=== PATIENT | female | born 1960 | race African-American/Black ===

== ENCOUNTER 2019-01-30 13:57 | Inpatient (IN) | payer MEDICAID ==
[2019-01-30] MEDS ORDERED: D50W 25 GM/50 ML SYRINGE IV PRN (16:08)
[2019-01-30] MEDS ORDERED: GLUCAGON 1 MG/VIAL IM PRN (16:08)
[2019-01-30] MEDS: INSULIN -REGULAR HUMAN 50 UNIT/0.5 ML ML SQ SCH ×2 (16:30→21:00)
[2019-01-30 16:51] LABS: Absolute Lymphocytes (CBC) 1.8 K/uL (0.7-4.9); Absolute Monocytes 0.5 K/uL (0.1-1.3); Absolute Neutrophil 2.8 K/uL (1.8-8.0); Basophils % 0.9 % (0-1.3); Eosinophils % 3.1 % (0-4.4); Hematocrit 22.4 % (36.0-45.0); Lymphocytes % 33.9 % (15.3-44.8); MPV 7.6 fL (7.6-11.3); Monocytes % 8.7 % (3.3-12.3); RBC Red Blood Cell Count 2.34 M/uL (3.86-4.86)
--- NOTE | 2019-01-30 17:30 | RAD REPORT ---
EXAM DESCRIPTION: Robbin Single View01/30/2019 4:58 pm CLINICAL HISTORY: Shortness of breath COMPARISON: 2013 FINDINGS: The lungs appear clear of acute infiltrate. The heart is moderately enlarged IMPRESSION: No acute abnormalities displayed
[2019-01-30 17:33] LABS: Bilirubin Total 0.3 mg/dL (0.2-1.0); Magnesium 2.5 mg/dL (1.8-2.4); Phosphorus 5.1 mg/dL (2.5-4.9); Potassium 5.1 mmol/L (3.5-5.1)
[2019-01-30] MEDS ORDERED: FUROSEMIDE 40 MG TABLET PO SCH (18:00)
[2019-01-30] MEDS ORDERED: INFLUENZA VACCINE (for 3y+) 0.5 ML DOSE IMVAC ONE (18:00)
[2019-01-30] MEDS ORDERED: NACHLORIDE 0.45% 1,000 ML with NA BICARB 8.4% 100 MEQ IV SCH ×2 (18:00)
[2019-01-30] MEDS ORDERED: EPOETIN ALFA 10,000 UNIT/ML SQ ONE (20:29)
[2019-01-30] MEDS ORDERED: MANNITOL 25% 12.5 GM/50 ML VIAL IV PRN (20:33)
[2019-01-30] MEDS ORDERED: NA CHLORIDE 0.9% 1,000 ML IV PRN (20:33)
[2019-01-30] MEDS ORDERED: ALBUMIN HUMAN 25% 50 ML IV SCH (21:00)
[2019-01-30] MEDS ORDERED: WATER FOR INJ,STERILE 1,000 ML with NA BICARB 8.4% 100 MEQ IV SCH ×2 (21:00)
[2019-01-30] MEDS ORDERED: SODIUM BICARB 325 MG TAB PO ONE (21:00)
[2019-01-30] MEDS: CARVEDILOL 25 MG TAB PO SCH (21:54)
[2019-01-30] MEDS ORDERED: SODIUM BICARB 50 MEQ/50ML VIAL ONE (21:57)
[2019-01-30] MEDS: ACETAMINOPHEN 500 MG TAB PO PRN (22:04)
[2019-01-30] MEDS: NACHLORIDE 0.45% 1,000 ML IV SCH (23:15)
--- NOTE | 2019-01-31 03:38 | HP ---
Date of Admission: 01/30/2019 Primary Care Physician: Dr. Hart Chief Complaint: Abnormal labs, direct admission for initiation of dialysis, worsening kidney disease. History Of Present Illness: The patient is a 58-year-old female with past medical history of chronic kidney disease with recent creatinine, with baseline creatinine of 4, increased to 10, diabetes, hyperlipidemia, depression. This is a patient of Dr. Berry, who was admitted directly to the hospital for initiation of hemodialysis. The patient patient's labs from yesterday showed creatinine level of 10.6, elevated from 4, potassium was elevated at 5.7. The patient was also anemic at 7.6. The patient does report generalized weakness, weight loss of about 20 pounds in the past 6 months, some muscle fasciculations and spasms, decreased appetite. The patient's symptoms are constant, moderate, progressively worsening. She denies any NSAID use or recent changes in medications. The patient still makes urine. When the patient was seen on the floor, she was awake, alert, oriented x3, in some mild distress. Past Medical History: Diabetes mellitus type 2, diabetic gastroparesis, hyperlipidemia, depression, chronic kidney disease. Past Surgical History: Left arm AV fistula graft with subsequent reversal, knee surgery, tonsillectomy, appendectomy. Allergies: TO PENICILLIN, WHICH CAUSES HIVES. Medications: List reviewed. Social History: The patient smokes half a pack per day of cigarettes, has been smoking for multiple decades. Does drink alcohol on a fairly regular basis including beer and Smirnoff . No illicit drug use. The patient has good social support. Independent in her activities of daily living. Family History: Positive for diabetes. Review of Systems: Ten-point system reviewed, negative except as per HPI. Physical Examination: Vital Signs: Stable, afebrile. General: Awake, alert, oriented x3. Currently, ill-appearing female, in some mild distress. HEENT: Normocephalic, atraumatic. PERRLA. EOMI. Moist mucous membranes. Oropharynx is clear. Poor dentition. Conjunctivae anicteric. Neck: Supple. No JVD. Trachea midline. CV: S1 and S2. Regular rate and rhythm. Peripheral pulses present. Respiratory: Diminished breath sounds at the bases. Some crackles heard. No wheezing or stridor. No use of accessory muscles. Gastrointestinal: Abdomen is soft, nontender, nondistended. Positive bowel sounds. No guarding or rigidity. Extremities: No clubbing or cyanosis. The patient has 1+ edema of bilateral lower extremities. No calf tenderness. Neuro: Cranial nerves 2-12 intact grossly. No focal neurological deficit. Speech is normal. Strength is 5/5 bilateral upper and lower extremities. Psych: Mood is okay. Affect is flat. Insight and judgment are fair. Skin: No rashes. The patient has very dry excoriated skin on bilateral lower extremities. Laboratory Data: Pending. Creatinine 10.6, potassium 5.7, hemoglobin 7.6 from outside lab. EKG shows normal sinus rhythm. Assessment And Plan: A 58-year-old female with: 1. Acute on chronic kidney disease, trending towards end-stage renal disease, needs to be initiated on dialysis. I am unable to feel a palpable thrill on the patient's AV fistula. We will likely need catheter placement. Dr. Berry is on board. I appreciate his input. 2. Hyperkalemia. We will recheck potassium level and treat as necessary. We will place on cardiac telemetry. 3. Anemia of chronic disease secondary to chronic kidney disease, to be started on dialysis. We will monitor H and H. Hemoglobin was 7.6 yesterday. We will transfuse if less than 7. 4. Diabetes mellitus type 2, poo-djydkrl-drvvjdwms with diabetic gastroparesis. We will continue on sliding scale insulin and monitor Accu- Cheks. 5. Mixed hyperlipidemia. Continue home medications as appropriate. 6. Major depressive disorder, single episode, in remission. 7. Deep venous thrombosis prophylaxis, SCDs. We will hold off on chemical anticoagulation due to possibility of surgical intervention. Admission to Med-Surg, place as inpatient. Length of stay, greater than 2 midnights. LALITHA Voice ID: [id number] MTDD
[2019-01-31 05:50] LABS: Absolute Lymphocytes (CBC) 1.3 K/uL (0.7-4.9); Absolute Monocytes 0.5 K/uL (0.1-1.3); Absolute Neutrophil 2.8 K/uL (1.8-8.0); Basophils % 0.7 % (0-1.3); Eosinophils % 4.7 % (0-4.4); Hematocrit 21.9 % (36.0-45.0); Lymphocytes % 26.6 % (15.3-44.8); MPV 7.7 fL (7.6-11.3); Monocytes % 9.6 % (3.3-12.3); RBC Red Blood Cell Count 2.37 M/uL (3.86-4.86)
[2019-01-31 06:02] LABS: Protime INR 0.93
[2019-01-31] MEDS: CARVEDILOL 25 MG TAB PO SCH ×2 (06:04→22:57)
--- NOTE | 2019-01-31 06:05 | EKG ---
Test Date: 2019-01-30 Test Time: 16:11:20 Research Hydrologist: LEVI MEASUREMENT RESULTS: Intervals: Rate: 73 CA: 154 QRSD: 96 QT: 446 QTc: 491 [place]: P: 63 CA: 154 QRS: 3 T: 30 INTERPRETIVE STATEMENTS: Normal sinus rhythm Prolonged QT Abnormal ECG Compared to ECG 09/08/2015 14:02:56 Left ventricular hypertrophy no longer present Myocardial infarct finding no longer present Electronically Signed On 01-31-19 06:04:16 DIRECTOR CHECK by Tru Bill
[2019-01-31 06:18] LABS: Albumin 2.8 g/dL (3.4-5.0); Bilirubin Total 0.2 mg/dL (0.2-1.0); Potassium 5.5 mmol/L (3.5-5.1); Protein, Total 6.9 g/dL (6.4-8.2); Uric Acid 6.6 mg/dL (2.6-6.0)
[2019-01-31] MEDS: INSULIN -REGULAR HUMAN 50 UNIT/0.5 ML ML SQ SCH ×4 (07:30→21:00)
[2019-01-31] MEDS ORDERED: CIPROFLOXACIN 400mg IV 400 MG/200 ML BAG IV ONE ×2 (08:58→10:47)
[2019-01-31] MEDS: CALCITROL 0.25 MCG CAP PO SCH (09:00)
[2019-01-31] MEDS: VITAMIN D 5,000 UNIT CAP PO SCH (09:00)
[2019-01-31] MEDS: AMLODIPINE 10 MG TAB PO SCH (10:35)
[2019-01-31] MEDS ORDERED: NA CHLORIDE 0.9% 500 ML ONE (10:47)
[2019-01-31] MEDS: ONDANSETRON 4 MG/2 ML VIAL IV PRN ×2 (10:47→18:10)
[2019-01-31] MEDS: HEPARIN 5000 UNIT/ML 1 ML VIAL ONE ×5 (11:35→15:29)
[2019-01-31] MEDS ORDERED: NA CHLORIDE 0.9% 100 ML IV ONE ×2 (11:36→14:56)
[2019-01-31] MEDS: LIDOCAINE 1% MPF 30 ML VIAL ONE ×2 (11:56→13:00)
[2019-01-31] MEDS: NACHLORIDE 0.45% 1,000 ML IV SCH ×2 (12:20→22:58)
[2019-01-31] MEDS ORDERED: MIDAZOLAM HCL 2 MG/2 ML INJ ONE (12:42)
[2019-01-31] MEDS ORDERED: FENTANYL CITR 100 MCG/2 ML ONE (12:56)
[2019-01-31] MEDS ORDERED: LIDOCAINE 2% MPF 5 ML VIAL ONE (12:56)
[2019-01-31] MEDS ORDERED: PROPOFOL 200 MG/20 ML VIAL IV ONE ×2 (12:56→13:23)
--- NOTE | 2019-01-31 13:26 | PREOPCON ---
Date of Consultation: 01/31/2019 Reason: The patient needs emergent dialysis. History Of Present Illness: The patient is a 58-year-old female with multiple medical problems, who was admitted with worsening kidney disease, found to have acute renal failure and is going to require long-term dialysis, therefore I was consulted for catheter placement. She is awake, alert. No comp laint. No fever or chills. No chest pain. No sore throat, runny nose, cough, headaches, or dizzine ss. Review of Systems: Otherwise unremarkable. Past Medical History: Diabetes type 2, gastroparesis, hyperlipidemia, chronic kidney disease, depres dmitriy. Past Surgical History: Left arm AV fistula with subsequent reversal, knee surgery, tonsillectomy and appendectomy. Allergies: INCLUDE PENICILLIN, WHICH CAUSES SWELLING AND HIVES. Social History: She does smoke and has been counseled. She does drink alcohol. Family History: Significant for diabetes. Physical Examination: Vital Signs: Significant for slightly elevated blood pressure 177/82. She is afebrile. She is awak e, alert. Head and Neck: No masses. No JVD currently. Chest: Clear. Heart: S1, S2. Abdomen: Soft. Extremities: Neurovascularly intact. Neuro: Nonfocal. Assessment: End-stage renal disease requiring long-term dialysis. Recommendation: Proceed with Tesio catheter placement. The patient understands the risks, benefits, and alternatives and agrees to procedure. RAGHU/MODLeia Voice ID: [id number] Report ID: [id number]
[2019-01-31] MEDS ORDERED: SOD POLYSTYREN SUL 15 GM/60 ML UCUP PO ONE (13:40)
[2019-01-31] MEDS: HYDROMORPHONE HCL 1 MG/ML INJ ONE ×2 (14:04→14:58)
--- NOTE | 2019-01-31 14:51 | RAD REPORT ---
EXAM DESCRIPTION: RAD - Fluoroscopy <1 Hour - 01/31/2019 2:43 pm CLINICAL HISTORY: Venous catheter insertion. TESSIO PLACEMENT ATTEMPT COMPARISON: No comparisons FINDINGS: Fluoroscopy time 2.9 minutes.
[2019-01-31] MEDS ORDERED: LIDOCAINE 1% MPF 30 ML VIAL ONE (14:55)
--- NOTE | 2019-01-31 14:55 | RAD REPORT ---
EXAM DESCRIPTION: RAD - Chest Single View - 01/31/2019 2:50 pm CLINICAL HISTORY: FAILED ATTEMPT TESIO CATH Chest pain. COMPARISON: Chest Single View dated 01/30/2019; CHEST SINGLE VIEW dated 12/11/2013; CHEST PA AND LAT 2 VIEW dated 02/21/2011; CHEST PA AND LAT 2 VIEW dated 08/20/2010 FINDINGS: Portable technique limits examination quality. A venous catheter is not seen. The lungs appear clear without pneumothorax. The heart is moderately p rominent in size.
[2019-01-31] MEDS ORDERED: HEPARIN 5000 UNIT/ML 1 ML VIAL ONE (14:56)
[2019-01-31] MEDS ORDERED: HYDROMORPHONE HCL 1 MG/ML INJ ONE (15:24)
--- NOTE | 2019-01-31 15:41 | P.OP ---
Preoperative diagnosis: ESRD Postoperative diagnosis: same Primary procedure: Attempted RIJ and Subclavian Tesio Secondary procedure: Fluoroscopy Other procedure(s): Placement R Femoral Tone Anesthesia: MAC Estimated blood loss: min Specimen: none Findings: abnormal Vascular Anatomy in neck region Complications: None Transferred to: Recovery Room Condition: Good
--- NOTE | 2019-01-31 17:29 | PN ---
Date of Progress Note: 01/31/2019 Subjective: The patient is seen and examined. Chart reviewed and case discussed with RN and Dr. Debra dillard. The patient overall says she feels okay, going for hemodialysis catheter placement today by Dr Michael Alvares. Dr. Alvares mentioned that he will likely get her this afternoon. Medications: List reviewed. Physical Examination: Vital Signs: Temperature 97.9, heart rate 69, blood pressure 177/82, respirations 16, O2 100% on lexi m air. General: Awake, alert, oriented x3, mild distress. CV: S1, S2. Regular rate and rhythm. Peripheral pulses present. Respiratory: Moving air well bilaterally. No wheezing or stridor. Gastrointestinal: Abdomen is soft, nontender, nondistended. Positive bowel sounds. Extremities: No clubbing or cyanosis. The patient has pedal edema. Neurologic: Nonfocal. Laboratory Data: Sodium 142, potassium 5.5, chloride 115, CO2 17, BUN 83, creatinine 9.38, glucose 8 9, uric acid 6.6, calcium 7.5, albumin 2.8. WBC 4.7, H and H 7.2 and 21.9, platelets 154. Hep panel pending. Assessment And Plan: A 58-year-old female with: 1.Lvfpg-tq-pegdfce kidney disease, stage 5, now seems to be end-stage. Needs to be initiated on kathy lysis. The patient's AV fistula is nonfunctional. She will need catheter placement. Dr. Alvares will be placing the catheter today. Appreciate Dr. Berry's input. 2.Hyperkalemia. We will give Kayexalate and monitor. 3.Anemia of chronic disease secondary to chronic kidney disease, to be started on dialysis. Monitor H and H, transfuse if less than 7. 4.Diabetes mellitus type 2, mud-nxumtvj-whqddmtti with diabetic gastroparesis. Continue sliding sca le insulin. Monitor Accu-Cheks. 5.Hyperlipidemia. 6.Major depressive disorder, single episode, in remission. 7.Deep venous thrombosis prophylaxis with SCDs due to surgical intervention at this time. Plan: Initiate dialysis once catheter in place. Monitor electrolytes. SA/MODL Voice ID: [id number] Report ID: [id number]
--- NOTE | 2019-01-31 18:03 | P.CNS ---
Date of Consult: 01/31/19 Reason for Consult: ESRD Requesting Physician: Rustam Antonio Chief Complaint: Uremia History of Present Illness: 58 yo BF CKD, HTN admitted to the hospital with severe, progressive CKD with associated uremia. Positive nausea, vomiting and anorexia. No alleviating fx. No NSAIDs. History Of Present Illness: The patient is a 58-year-old female with past medical history of chronic kidney disease with recent creatinine, with baseline creatinine of 4, increased to 10, diabetes, hyperlipidemia, depression. This is a patient of Dr. Berry, who was admitted directly to the hospital for initiation of hemodialysis. The patient patient's labs from yesterday showed creatinine level of 10.6, elevated from 4, potassium was elevated at 5.7. The patient was also anemic at 7.6. The patient does report generalized weakness, weight loss of about 20 pounds in the past 6 months, some muscle fasciculations and spasms, decreased appetite. The patient's symptoms are constant, moderate, progressively worsening. She denies any NSAID use or recent changes in medications. The patient still makes urine. When the patient was seen on the floor, she was awake, alert, oriented x3, in some mild distress. Allergies Penicillins Adverse Reaction (Mild, Verified 09/05/12 15:39) SWELLING PCN Allergy (Uncoded 03/25/15 17:24) Unknown Home medications list reviewed: Yes Home Medications: Amlodipine [Norvasc] 10 mg PO DAILY 01/30/19 Carvedilol [Coreg] 25 mg PO BID 01/30/19 Cholecalciferol (Vitamin D3) [Vitamin D 1000 Iu Tab] 1,000 unit PO DAILY Furosemide [Lasix] 40 mg PO BID 01/30/19 - Past Medical/Surgical History Diabetic: Yes -: kidney issues -: HTN -: NIDDM -: Bladder issues -: Cataracts -: knee sx -: stunt placement in arm - Family History Father History Unknown: Yes Mother Medical History: Hypertension, Diabetes, Kidney disease - Social History Smoking Status: Current every day smoker Alcohol use: Yes CD- Drugs: No Caffeine use: No Place of Residence: Home Review of Systems 10-point ROS is otherwise unremarkable General: Weakness, Malaise Gastrointestinal: Nausea, Vomiting Neurological: Weakness Physical Examination Temp Pulse Resp BP Pulse Ox 97.1 F 60 15 142/65 H 100 01/31/19 16:00 01/31/19 16:00 01/31/19 16:00 01/31/19 16:00 01/31/19 16:00 General: In no apparent distress, Oriented x3, Cooperative HEENT: Atraumatic Neck: Supple Respiratory: Clear to auscultation bilaterally Cardiovascular: No edema, Regular rate/rhythm Gastrointestinal: Soft and benign, Non-distended Musculoskeletal: No clubbing, No contractures Integumentary: No rashes, No cyanosis Neurological: Normal speech Laboratory Data (last 24 hrs) 01/31/19 05:30: PT 11.0, INR 0.93, APTT 32.7 01/31/19 05:30: Sodium 142, Potassium 5.5 H, BUN 83 H, Creatinine 9.38 H*, Glucose 89, Uric Acid 6.6 H, Total Bilirubin 0.2, AST 35, ALT 19, Alkaline Phosphatase 77 01/31/19 05:30: WBC 4.7, Hgb 7.2 L*, Hct 21.9 L, Plt Count 154 01/30/19 16:35: Sodium 140, Potassium 5.1, BUN 84 H, Creatinine 9.58 H*, Glucose 142 H, Phosphorus 5.1 H, Magnesium 2.5 H, Total Bilirubin 0.3, AST 33, ALT 17, Alkaline Phosphatase 80 Imagings Data: EXAM DESCRIPTION: Robbin Single View01/30/2019 4:58 pm CLINICAL HISTORY: Shortness of breath COMPARISON: 2013 FINDINGS: The lungs appear clear of acute infiltrate. The heart is moderately enlarged IMPRESSION: No acute abnormalities displayed Conclusions/Impression: A/ ESRD with uremia. HD to be initiated [id number]. Hyperkalemia. Acidosis. HTN with CKD/ CHF. Diastolic CHF, chronic. Anemia in CKD. DM II with CKD. JUANITO/ Secondary HyperPTH. P/ Continue current POC and Medications. Admitted to the hospital for uremia complicated by acidosis, hyperkalemia and anemia. Give bicarb. Give Epo. Start Vitamin D. Will consider binders once diet advanced. Arrange for Tunnelled HD CVC; Dr. Alvares consulted. Restart home medications as indicated. Give Epo. No NSAIDs. AM labs. Daily weight. Case reviewed with Dr. Alavres today. Unable to place the IH CVC due to obstruction. A temporary groin catheter was placed to initiate dialysis. Case reviewed with Dr. Antonio. Initiate transfer to a higher level facility for vascular evaluation. Case reviewed with the patient and her daughter. Thank you kindly for the consultation.
[2019-01-31] MEDS: ACETAMINOPHEN 500 MG TAB PO PRN (21:40)
--- NOTE | 2019-02-01 03:42 | OP ---
Date of Procedure: 01/31/2019 Surgeon: Lasha Alvares MD Preoperative Diagnosis: End-stage renal disease. Postoperative Diagnosis: End-stage renal disease. Procedures: Attempted right IJ and subclavian Tesio catheter, interpretation of fluoroscopy, and jacki cement of right femoral Tone catheter. Estimated Blood Loss: Minimal. Specimen: None. Findings: Abnormal anatomy in the SVC, neck, and subclavian region. I was able to get below; roxanna r, guidewire was difficult to pass. One time we did, but we could not get the catheter to be placed in the proper location. Rather than risk a vascular complication, I aborted this area. We got a [facility] x-ray. There was no evidence of any complication and then I contacted Dr. Berry and we proceede d with placement of a right femoral catheter. Anesthesia: MAC. Complications: None. Disposition: The patient tolerated the procedure in stable condition and taken to Recovery in good g eneral condition. Description Of Procedure: The patient was brought to the OR and placed in the supine position. MAC anesthesia begun. The patient was prepped and draped in the usual sterile fashion. Lidocaine 1% inf iltrated locally. An 18-gauge needle was used to access the right IJ vein. However, after multiple attempts, a guidewire would not pass without resistance. A resistance was made at the thoracic inlet region. This was attempted several times from different angles and different techniques were used a s well. Then, the subclavian region was also done and one time the guidewire was passed down to the right side of the circulatory system, but it was very difficult to dilate over that. My concern was the patient may have a thrombosis or stenosis in that region and because of the difficulty encounter, I aborted this area and the wounds were closed with 3-0 nylon. Subsequently, a chest x-ray was obta ined. The patient was taken to recovery room and chest x-ray did not show any evidence of complicati on, no pneumothorax, no wide mediastinum, and no pleural fluid. Subsequently, the case was discussed in detail with Dr. Berry, who proceeded with the placement of right femoral Tone catheter, as t he patient is uremic and needs urgent dialysis. Subsequently, the right groin was prepped and draped in the usual sterile fashion. A Doppler device was used to identify the right femoral artery and me dial to that, the right femoral vein was identified with an 18-gauge needle. Guidewire passed. Vein dilated. Seldinger technique used and the Tone catheter was placed and secured with 3-0 nylon, i t was flushed with heparin and packed with heparin with good blood flow. Sterile dressing was applie d. The patient tolerated the procedure in stable condition and currently she is going upstairs for d ialysis. RAGHU/CHANO Voice ID: [id number] Report ID: [id number]
[2019-02-01] MEDS: ACETAMINOPHEN 500 MG TAB PO PRN (04:46)
[2019-02-01 06:21] LABS: Absolute Lymphocytes (CBC) 1.3 K/uL (0.7-4.9); Absolute Monocytes 0.6 K/uL (0.1-1.3); Absolute Neutrophil 3.5 K/uL (1.8-8.0); Basophils % 0.7 % (0-1.3); Eosinophils % 3.2 % (0-4.4); Hematocrit 17.9 % (36.0-45.0); Lymphocytes % 22.7 % (15.3-44.8); Monocytes % 10.4 % (3.3-12.3); RBC Red Blood Cell Count 1.95 M/uL (3.86-4.86)
[2019-02-01 06:58] LABS: Albumin 2.5 g/dL (3.4-5.0); Bilirubin Total 0.2 mg/dL (0.2-1.0); Potassium 3.8 mmol/L (3.5-5.1); Protein, Total 5.9 g/dL (6.4-8.2)
[2019-02-01] MEDS ORDERED: HYDROCODONE/APAP 7.5/325 MG TAB PO ONE (07:23)
[2019-02-01] MEDS: INSULIN -REGULAR HUMAN 50 UNIT/0.5 ML ML SQ SCH ×4 (07:30→21:00)
[2019-02-01] MEDS: CARVEDILOL 25 MG TAB PO SCH ×2 (08:13→22:12)
[2019-02-01] MEDS: CALCITROL 0.25 MCG CAP PO SCH (08:14)
[2019-02-01] MEDS: AMLODIPINE 10 MG TAB PO SCH (08:15)
[2019-02-01] MEDS: VITAMIN D 5,000 UNIT CAP PO SCH (08:15)
[2019-02-01] MEDS: RAMIPRIL 5 MG CAP PO SCH (09:38)
[2019-02-01] MEDS: NACHLORIDE 0.45% 1,000 ML IV SCH (12:30)
[2019-02-01] MEDS ORDERED: WATER FOR INJ,STERILE 10 ML IV ONE ×2 (17:19→18:00)
[2019-02-01] MEDS ORDERED: ALTEPLASE 2 MG/VIAL IJ ONE (17:19)
[2019-02-01 17:39] LABS: Urine Appearance CLEAR; Urine Bilirubin NEGATIVE (NEG); Urine Blood 1+ (NEG); Urine Color YELLOW; Urine Glucose 1+ (NEG); Urine Protein 3+ (NEG); Urine Specific Gravity 1.015 (1.005-1.030); Urine Urobilinogen 0.2 mg/dL (0.2-1.0)
[2019-02-01 17:45] LABS: Urine Microscopic Reflex ORDER UMIC
[2019-02-01] MEDS ORDERED: ALTEPLASE 2 MG/VIAL IV SCH ×2 (18:00)
[2019-02-01] MEDS ORDERED: NA CHLORIDE 0.9% 250 ML ONE (18:59)
[2019-02-01] MEDS: EPOETIN ALFA 10,000 UNIT/ML VIAL IV SCH (19:25)
[2019-02-01 19:32] LABS: Urine Bacteria >50 /HPF (<20); Urine Culture Reflex Order REFLEXED; Urine RBC <5 /HPF (NONE SEEN)
[2019-02-01] MEDS ORDERED: TRAMADOL HCL 50 MG TAB PO ONE (22:18)
[2019-02-01 22:45] LABS: Hematocrit 22.5 % (36.0-45.0)
--- NOTE | 2019-02-01 23:08 | P.PN ---
Addendum entered and electronically signed by Donald Berry DO 02/01/19 19:02 : Start Ramipril for HTN. Original Note: Date of Service: 02/01/19 Vital Signs Temp Pulse Resp BP Pulse Ox 98.7 F 78 15 156/72 H 98 02/01/19 16:00 02/01/19 16:00 02/01/19 16:00 02/01/19 16:00 02/01/19 16:00 Medications Acetaminophen (Tylenol -Extra Strength) 500 mg PO Q4HP PRN PRN Reason: TEMP > 100' F Stop: 03/01/19 15:57 Last Admin: 02/01/19 04:46 Dose: 500 mg Alteplase, Recombinant (Cathflo Activase) 2 mg IV 1X [facility] Stop: 02/01/19 23:59 Last Admin: 02/01/19 17:36 Dose: 2 mg Alteplase, Recombinant (Cathflo Activase) 2 mg IV 1X [facility] Stop: 02/01/19 23:59 Last Admin: 02/01/19 17:38 Dose: 2 mg Amlodipine Besylate (Norvasc) 10 mg PO DAILY [facility] Stop: 03/02/19 09:01 Last Admin: 02/01/19 08:15 Dose: 10 mg Calcitriol (Rocaltrol) 0.5 mcg PO DAILY [facility] Stop: 03/02/19 09:01 Last Admin: 02/01/19 08:14 Dose: 0.5 mcg Carvedilol (Coreg) 25 mg PO BID [facility] Stop: 03/01/19 21:01 Last Admin: 02/01/19 08:13 Dose: 25 mg Cholecalciferol (Vitamin D 5,000 Iu Cap) 5,000 unit PO DAILY [facility] Stop: 03/02/19 09:01 Last Admin: 02/01/19 08:15 Dose: 5,000 unit Dextrose (Dextrose 50% Syringe) 12.5 gm IV PRN PRN PRN Reason: HYPOGLYCEMIA PROTOCOL Stop: 03/01/19 16:09 Epoetin Tommy (Procrit) 10,000 unit IV EVERY HD [facility] Stop: 03/01/19 20:46 Glucagon (Glucagen) 1 mg IM 1X PRN PRN Reason: HYPOGLYCEMIA Stop: 03/01/19 16:09 Heparin Sodium (Porcine) (Heparin 1,000 Units/Ml) 6,000 unit IJ EVERY HD PRN PRN Reason: FLUSH AFTER EACH USE Stop: 03/01/19 20:34 Albumin Human (Albumin 25%) 50 mls @ 100 mls/hr IV EVERY HD [facility] Stop: 03/01/19 21:01 Sodium Chloride (Sodium Chloride 0.45%) 1,000 mls @ 75 mls/hr IV .[id number] [facility] Stop: 03/01/19 23:01 Last Admin: 02/01/19 12:30 Dose: 1,000 mls Insulin Human Regular (Novolin -R) 0 unit SQ ACHS [facility]; Protocol Stop: 03/01/19 16:31 Last Admin: 02/01/19 15:50 Dose: Not Given Mannitol (Mannitol 12.5 Gm/50 Ml Vial) 12.5 gm IV EVERY HD PRN PRN Reason: Titrate to SBP (MUST DEFINE) Stop: 03/01/19 20:34 Ondansetron HCl (Zofran) 4 mg IV Q4H PRN PRN Reason: NAUSEA / VOMITING Stop: 03/01/19 15:57 Last Admin: 01/31/19 18:10 Dose: 4 mg Ramipril (Altace) 5 mg PO DAILY [facility] Stop: 03/03/19 09:01 Last Admin: 02/01/19 09:38 Dose: 5 mg Sodium Chloride (Normal Saline Flush) 10 ml IV BID [facility] Stop: 03/01/19 21:01 Last Admin: 02/01/19 08:16 Dose: Not Given Lab Results (last 24 hrs) 02/01/19 16:40: Urine Color Yellow, Urine Appearance Clear, Urine pH 6.0, Ur Specific [place] 1.015, Urine Ketones Negative, Urine Blood 1+ H, Urine Nitrite Positive H, Urine Bilirubin Negative, Urine Urobilinogen 0.2, Ur Leukocyte Esterase 1+ H, Urine Glucose 1+ H, Urine Total Protein 3+ H 02/01/19 15:20: POC Glucose 72 02/01/19 11:41: POC Glucose 363 H 02/01/19 08:22: ABO/Rh A POSITIVE 02/01/19 07:51: POC Glucose 101 02/01/19 06:56: ABO/Rh A POSITIVE, Antibody Screen Negative, Crossmatch See Detail 02/01/19 05:44: Sodium 142, Potassium 3.8, Chloride 111 H, Carbon Dioxide 23, BUN 47 H D, Creatinine 6.32 H* D, Estimated GFR 8 L, Glucose 117 H, Calcium 7.3 L, Total Bilirubin 0.2, AST 22, ALT 14, Alkaline Phosphatase 66, Serum Total Protein 5.9 L, Albumin 2.5 L, Globulin 3.4, Albumin/Globulin Ratio 0.7 L 02/01/19 05:44: WBC 5.5 D, RBC 1.95 L, Hgb 6.0 L*, Hct 17.9 L* D, MCV 91.7, MCH 30.7, MCHC 33.5, RDW 12.7, Plt Count 131 L, MPV 8.0, Neutrophils % 63.0, Lymphocytes % 22.7, Monocytes % 10.4, Eosinophils % 3.2, Basophils % 0.7, Absolute Neutrophils 3.5, Absolute Lymphocytes 1.3, Absolute Monocytes 0.6, Absolute Eosinophils 0.2, Absolute Basophils 0.0 01/31/19 19:30: POC Glucose 88 Assessment/ Plan: Nephrology. Feeling better. CPS stable without CP or SOB. No acute events overnight. Vitals, medications, blood work and imaging reviewed in the chart. General: In no apparent distress, Oriented x3, Cooperative HEENT: Atraumatic Neck: Supple Respiratory: Clear to auscultation bilaterally Cardiovascular: No edema, Regular rate/rhythm Gastrointestinal: Soft and benign, Non-distended Musculoskeletal: No clubbing, No contractures Integumentary: No rashes, No cyanosis Neurological: Normal speech Laboratory Data (last 24 hrs) 01/31/19 05:30: PT 11.0, INR 0.93, APTT 32.7 01/31/19 05:30: Sodium 142, Potassium 5.5 H, BUN 83 H, Creatinine 9.38 H*, Glucose 89, Uric Acid 6.6 H, Total Bilirubin 0.2, AST 35, ALT 19, Alkaline Phosphatase 77 01/31/19 05:30: WBC 4.7, Hgb 7.2 L*, Hct 21.9 L, Plt Count 154 01/30/19 16:35: Sodium 140, Potassium 5.1, BUN 84 H, Creatinine 9.58 H*, Glucose 142 H, Phosphorus 5.1 H, Magnesium 2.5 H, Total Bilirubin 0.3, AST 33, ALT 17, Alkaline Phosphatase 80 Imagings Data: EXAM DESCRIPTION: Robbin Single View01/30/2019 4:58 pm CLINICAL HISTORY: Shortness of breath COMPARISON: 2013 FINDINGS: The lungs appear clear of acute infiltrate. The heart is moderately enlarged IMPRESSION: No acute abnormalities displayed Conclusions/Impression: A/ ESRD with uremia. HD to be initiated 01-31-19. Hyperkalemia. Acidosis. HTN with CKD/ CHF. Diastolic CHF, chronic. Anemia in CKD. DM II with CKD. JUANITO/ Secondary HyperPTH. P/ Continue current POC and Medications. Admitted to the hospital for uremia complicated by acidosis, hyperkalemia and anemia. Difficult tunnelled CVC insertion so converted to groin CVC. Daily dialysis started. Give blood with HD today due to worsening anemia. No NSAIDs. AM labs. Daily weight. Case reviewed with Dr. Antonio. Pending transfer to a higher level facility for vascular evaluation.
[2019-02-02] MEDS: NACHLORIDE 0.45% 1,000 ML IV SCH (00:19)
[2019-02-02 04:54] LABS: Absolute Lymphocytes (CBC) 1.5 K/uL (0.7-4.9); Absolute Monocytes 0.7 K/uL (0.1-1.3); Absolute Neutrophil 4.1 K/uL (1.8-8.0); Basophils % 0.5 % (0-1.3); Eosinophils % 2.1 % (0-4.4); Lymphocytes % 23.5 % (15.3-44.8); Monocytes % 10.6 % (3.3-12.3); RBC Red Blood Cell Count 2.13 M/uL (3.86-4.86)
[2019-02-02 05:03] LABS: Hematocrit 19.4 % (36.0-45.0)
[2019-02-02 05:15] LABS: Albumin 2.2 g/dL (3.4-5.0); Bilirubin Total 0.2 mg/dL (0.2-1.0); Potassium 3.8 mmol/L (3.5-5.1); Protein, Total 5.4 g/dL (6.4-8.2)
[2019-02-02] MEDS: AMLODIPINE 10 MG TAB PO SCH ×2 (06:03→08:54)
--- NOTE | 2019-02-02 07:16 | DS ---
Date of Discharge: 02/01/2019 Consultants: 1. Dr. Lasha Alvares. 2. Dr. Donald Berry. Procedures: On 01/31/2019, temporary dialysis catheter in the right femoral. Admitting Diagnoses: 1. Cnwod-jy-mikpcgo kidney disease, now end-stage renal disease. 2. Hyperkalemia. 3. Anemia of chronic disease secondary to end-stage renal disease. 4. Diabetes mellitus type 2, ulw-bzekvxg-jusdeyijm with diabetic gastroparesis. 5. Mixed hyperlipidemia. 6. Major depressive disorder, single episode, in remission. Discharge Diagnoses: 1. Rrwrs-ys-murvkzh kidney disease stage V, end-stage renal disease, to be initiated on dialysis. 2. Hyperkalemia, corrected. 3. Anemia of chronic disease secondary to end-stage renal disease, on dialysis. 4. Diabetes mellitus type 2, ipd-odawbxp-hojhypttr with diabetic gastroparesis. 5. Mixed hyperlipidemia. 6. Major depressive disorder, single episode, in remission. Hospital Course: The patient is a 58-year-old female with a past medical history of chronic kidney disease, now with end-stage renal disease, who was directly admitted from Dr. Berry's office for initiation of hemodialysis. The patient's creatinine was at 10. Potassium was elevated at 5.7. She was also anemic. The patient's workup in the hospital revealed a creatinine of 9.58 , potassium was elevated at 5.5. The patient did receive some Kayexalate. She was seen by Dr. Alvares as her AV graft was nonfunctional. He was unable to place a tunneled catheter in the chest due to anatomic irregularity, and possible stenosis; therefore, a temporary catheter was placed in the groin. The patient was referred to [facility] for placement of a tunneled catheter requiring Interventional Radiology or Vascular Surgery, or both. The patient did have a drop in her hemoglobin down to 6, and will be transfused a unit with dialysis today. The patient was able to tolerate dialysis and felt somewhat improved. The patient will be transferred to [facility] once bed was available. Diet: Renal. Activity: As tolerated. Medications: As per medication reconciliation list. Followup: Follow up with Dr. Berry, Nephrology, in 2 weeks. Physical Examination: General: Awake, alert, oriented x3. Ill-appearing, older than stated age female. CV: S1, S2. Respiratory: Moving air well bilaterally. Gastrointestinal: Abdomen is soft, nontender, nondistended. Positive bowel sounds. Extremities: No clubbing, cyanosis, or edema. Neurologic: Nonfocal. Skin: Dialysis catheter right groin. No hematoma. Total time spent transferring the patient was 42 minutes. LALITHA Voice ID: [id number] Report ID: [id number] MTDD
[2019-02-02] MEDS: INSULIN -REGULAR HUMAN 50 UNIT/0.5 ML ML SQ SCH ×4 (07:30→21:00)
[2019-02-02] MEDS: CALCITROL 0.25 MCG CAP PO SCH (08:54)
[2019-02-02] MEDS: CARVEDILOL 25 MG TAB PO SCH ×2 (08:54→21:00)
[2019-02-02] MEDS: RAMIPRIL 5 MG CAP PO SCH (08:54)
[2019-02-02] MEDS: VITAMIN D 5,000 UNIT CAP PO SCH (08:54)
[2019-02-02] MEDS ORDERED: NA CHLORIDE 0.9% 250 ML ONE (09:20)
[2019-02-02 16:12] LABS: Hematocrit 24.1 % (36.0-45.0)
[2019-02-02] MEDS ORDERED: FUROSEMIDE 20 MG/ 2ML VIAL IV ONE (18:24)
--- NOTE | 2019-02-02 18:25 | RAD REPORT ---
EXAM DESCRIPTION: RAD - Chest Single View - 02/02/2019 6:04 pm CLINICAL HISTORY: Shortness of breath COMPARISON: January 31 TECHNIQUE: AP portable chest image was obtained 1802 hours . FINDINGS: Lung volumes are relatively low but similar to the comparison. No peripheral mass or conso lidation. Lung markings are prominent but not substantially different. Baseline prominence could mask early interstitial edema or infiltrate. Heart size is normal range for shallow inspiration portable imaging. Mild vascular engorgement is seen similar to comparison. No measurable pleural effusion and no pneumothorax. No acute bony abnormality seen. No acute aortic findings suspected. IMPRESSION: Vasculature and lung markings are prominent but not substantially different from compari son. Mild edema or infiltrate can be masked in this setting.
--- NOTE | 2019-02-02 21:13 | PN ---
Date of Progress Note: 02/02/2019 Subjective: The patient is seen and examined, chart reviewed, and case discussed with RN and Dr. Debra dillard. The patient was scheduled to go for tunneled catheter placement at [facility], however, was de clined due to the fact that she is receiving blood and did not wish to have blood in transit while th e patient is being transferred according to the transfer center. The patient then will not be able t o go till Tuesday for a tunneled catheter placement. I did speak with her vascular surgeon yesterday to have the patient transferred as an inpatient. However, he declined and recommended outpatient [facility]. Overall, the patient is doing well. Her hemoglobin was low and will be transfused a unit of blood today. Medications: List reviewed. Objective: Vital Signs: Temperature 99, heart rate 82, blood pressure 143/65, respirations 18, O2 s at 95% on room air. General: Awake, alert, and oriented x3. The patient appears older than the stated age, in no acute distress. CV: S1, S2. Peripheral pulses are present. Respiratory: Moving air well bilaterally. No wheezing. Gastrointestinal: Abdomen is soft, nontender, and nondistended. Positive bowel sounds. Extremities: No clubbing or cyanosis. No edema. Neurologic: Nonfocal. Laboratory Data: Sodium 143, potassium 3.8, chloride 113, CO2 of 24, BUN 4.65, glucose 110, calcium 7.4. WBC 6.5, H and H 6.8 and 19.4, platelets 120. Hepatitis panel is pending. Urine culture showi ng 4+ gram-negative rods. Assessment And Plan: A 58-year-old female with; 1.End stage renal disease, initiated on dialysis. 2.Hyperkalemia, corrected. 3.Anemia, acute on chronic, secondary to chronic kidney disease, on dialysis. We will transfuse 2 u nits of PRBCs. We will monitor H and H. We will obtain stool occult. The patient has not had bowel movement. 4.Diabetes mellitus type 2, ggx-jjwsgsy-ryktxzjol, with diabetic gastroparesis. We will continue sl iding scale insulin and monitor Accu-Cheks. 5.Mixed hyperlipidemia. 6.Major depressive disorder, single episode, in remission. 7.Deep venous thrombosis prophylaxis with SCDs. No chemical anticoagulation due to anemia. Plan: The patient was initially accepted for transfer, however, turns out that the patient was only accepted for an outpatient procedure for tunneled catheter, however, was not taken today as scheduled due to the patient being transfused with blood. Tunneled catheter placement is now being reschedule d for Tuesday. The patient will need to be n.p.o. after midnight on Tuesday. The patient will be retu rned after the procedure back to this facility from [facility]. I did speak to Dr. Berry. The pat ient could be referred to a different facility, however, at this time if she gets a bed today, they w ill not likely do a procedure on the weekend similar to [facility], and she would be waiting till Tue regardless. Case was discussed with caseworker protective services, Elizabeth Johnson. LALITHA Voice ID: [id number] Report ID: [id number]
--- NOTE | 2019-02-02 21:33 | P.PN ---
Date of Service: 02/02/19 Vital Signs Temp Pulse Resp BP Pulse Ox 97.6 F 82 18 190/79 H 96 02/02/19 16:00 02/02/19 16:00 02/02/19 16:00 02/02/19 16:00 02/02/19 16:00 Medications Acetaminophen (Tylenol -Extra Strength) 500 mg PO Q4HP PRN PRN Reason: TEMP > 100' F Stop: 03/01/19 15:57 Last Admin: 02/01/19 04:46 Dose: 500 mg Amlodipine Besylate (Norvasc) 10 mg PO DAILY [facility] Stop: 03/02/19 09:01 Last Admin: 02/02/19 08:54 Dose: Not Given Calcitriol (Rocaltrol) 0.5 mcg PO DAILY [facility] Stop: 03/02/19 09:01 Last Admin: 02/02/19 08:54 Dose: 0.5 mcg Carvedilol (Coreg) 25 mg PO BID [facility] Stop: 03/01/19 21:01 Last Admin: 02/02/19 08:54 Dose: 25 mg Cholecalciferol (Vitamin D 5,000 Iu Cap) 5,000 unit PO DAILY [facility] Stop: 03/02/19 09:01 Last Admin: 02/02/19 08:54 Dose: 5,000 unit Dextrose (Dextrose 50% Syringe) 12.5 gm IV PRN PRN PRN Reason: HYPOGLYCEMIA PROTOCOL Stop: 03/01/19 16:09 Epoetin Tommy (Procrit) 10,000 unit IV EVERY HD [facility] Stop: 03/01/19 20:46 Last Admin: 02/01/19 19:25 Dose: 10,000 unit Glucagon (Glucagen) 1 mg IM 1X PRN PRN Reason: HYPOGLYCEMIA Stop: 03/01/19 16:09 Heparin Sodium (Porcine) (Heparin 1,000 Units/Ml) 6,000 unit IJ EVERY HD PRN PRN Reason: FLUSH AFTER EACH USE Stop: 03/01/19 20:34 Albumin Human (Albumin 25%) 50 mls @ 100 mls/hr IV EVERY HD [facility] Stop: 03/01/19 21:01 Insulin Human Regular (Novolin -R) 0 unit SQ ACHS [facility]; Protocol Stop: 03/01/19 16:31 Last Admin: 02/02/19 16:30 Dose: Not Given Mannitol (Mannitol 12.5 Gm/50 Ml Vial) 12.5 gm IV EVERY HD PRN PRN Reason: Titrate to SBP (MUST DEFINE) Stop: 03/01/19 20:34 Ondansetron HCl (Zofran) 4 mg IV Q4H PRN PRN Reason: NAUSEA / VOMITING Stop: 03/01/19 15:57 Last Admin: 01/31/19 18:10 Dose: 4 mg Ramipril (Altace) 5 mg PO DAILY [facility] Stop: 03/03/19 09:01 Last Admin: 02/02/19 08:54 Dose: 5 mg Sodium Chloride (Normal Saline Flush) 10 ml IV BID [facility] Stop: 03/01/19 21:01 Last Admin: 02/02/19 08:55 Dose: 10 ml Lab Results (last 24 hrs) 02/02/19 15:57: Hgb 8.2 L, Hct 24.1 L D 02/02/19 12:00: POC Glucose 124 H 02/02/19 07:59: POC Glucose 122 H 02/02/19 04:40: Sodium 143, Potassium 3.8, Chloride 113 H, Carbon Dioxide 24, BUN 29 H, Creatinine 4.65 H D, Estimated GFR 12 L, Glucose 110 H, Calcium 7.4 L , Total Bilirubin 0.2, AST 17, ALT 12, Alkaline Phosphatase 63, Serum Total Protein 5.4 L, Albumin 2.2 L, Globulin 3.2, Albumin/Globulin Ratio 0.7 L 02/02/19 04:40: WBC 6.5 D, RBC 2.13 L, Hgb 6.8 L*, Hct 19.4 L*, MCV 91.2, MCH 32.0, MCHC 35.1, RDW 13.3, Plt Count 120 L, MPV 8.0, Neutrophils % 63.3, Lymphocytes % 23.5, Monocytes % 10.6, Eosinophils % 2.1, Basophils % 0.5, Absolute Neutrophils 4.1, Absolute Lymphocytes 1.5, Absolute Monocytes 0.7, Absolute Eosinophils 0.1, Absolute Basophils 0.0 02/01/19 22:40: Hgb Cancelled 02/01/19 22:16: Hgb 7.4 L*, Hct 22.5 L D 02/01/19 21:59: POC Glucose 138 H 02/01/19 16:40: Urine Color Yellow, Urine Appearance Clear, Urine pH 6.0, Ur Specific [place] 1.015, Urine Ketones Negative, Urine Blood 1+ H, Urine Nitrite Positive H, Urine Bilirubin Negative, Urine Urobilinogen 0.2, Ur Leukocyte Esterase 1+ H, Urine RBC <5, Urine WBC 5-10 H, Ur Squamous Epith Cells <5, Urine Bacteria >50 H, Urine Culture Reflexed Reflexed, Urine Glucose 1+ H, Urine Total Protein 3+ H 02/01/19 06:56: ABO/Rh A POSITIVE, Antibody Screen Negative, Crossmatch See Detail Microbiology Results 02/01/19 16:40 Clean Catch Urine [place] Count - Preliminary >100,000 CFU/ML. 02/01/19 16:40 Clean Catch Urine - Preliminary Assessment/ Plan: Nephrology. Doing well. CPS stable without CP or SOB. No acute events overnight. Vitals, medications, blood work and imaging reviewed in the chart. General: In no apparent distress, Oriented x3, Cooperative HEENT: Atraumatic Neck: Supple Respiratory: Clear to auscultation bilaterally Cardiovascular: No edema, Regular rate/rhythm Gastrointestinal: Soft and benign, Non-distended Musculoskeletal: No clubbing, No contractures Integumentary: No rashes, No cyanosis Neurological: Normal speech Laboratory Data (last 24 hrs) 01/31/19 05:30: PT 11.0, INR 0.93, APTT 32.7 01/31/19 05:30: Sodium 142, Potassium 5.5 H, BUN 83 H, Creatinine 9.38 H*, Glucose 89, Uric Acid 6.6 H, Total Bilirubin 0.2, AST 35, ALT 19, Alkaline Phosphatase 77 01/31/19 05:30: WBC 4.7, Hgb 7.2 L*, Hct 21.9 L, Plt Count 154 01/30/19 16:35: Sodium 140, Potassium 5.1, BUN 84 H, Creatinine 9.58 H*, Glucose 142 H, Phosphorus 5.1 H, Magnesium 2.5 H, Total Bilirubin 0.3, AST 33, ALT 17, Alkaline Phosphatase 80 Imagings Data: EXAM DESCRIPTION: [place] Single View01/30/2019 4:58 pm CLINICAL HISTORY: Shortness of breath COMPARISON: 2013 FINDINGS: The lungs appear clear of acute infiltrate. The heart is moderately enlarged IMPRESSION: No acute abnormalities displayed Conclusions/Impression: A/ ESRD with uremia. HD to be initiated 01-31-19. Hyperkalemia. Acidosis. HTN with CKD/ CHF. Diastolic CHF, chronic. Anemia in CKD. DM II with CKD. JUANITO/ Secondary HyperPTH. P/ Continue current POC and Medications. Admitted to the hospital for uremia complicated by acidosis, hyperkalemia and anemia. Difficult tunnelled CVC insertion so converted to groin CVC. Give blood with HD today due to worsening anemia. No NSAIDs. AM labs. Daily weight. Case reviewed with Dr. Antonio. Pending transfer to a higher level facility for vascular evaluation. Temporary right groin catheter not working; recommend removal and will hold off on HD at this time.
[2019-02-02] MEDS: ACETAMINOPHEN 500 MG TAB PO PRN (22:23)
[2019-02-03 07:09] LABS: Absolute Lymphocytes (CBC) 1.8 K/uL (0.7-4.9); Absolute Monocytes 0.8 K/uL (0.1-1.3); Absolute Neutrophil 5.6 K/uL (1.8-8.0); Basophils % 0.5 % (0-1.3); Eosinophils % 2.1 % (0-4.4); Hematocrit 25.1 % (36.0-45.0); Lymphocytes % 21.4 % (15.3-44.8); MPV 7.9 fL (7.6-11.3); Monocytes % 9.7 % (3.3-12.3); RBC Red Blood Cell Count 2.74 M/uL (3.86-4.86)
[2019-02-03 07:22] LABS: Albumin 2.4 g/dL (3.4-5.0); Bilirubin Total 0.3 mg/dL (0.2-1.0); Potassium 3.8 mmol/L (3.5-5.1)
[2019-02-03] MEDS: INSULIN -REGULAR HUMAN 50 UNIT/0.5 ML ML SQ SCH ×4 (07:30→21:43)
[2019-02-03] MEDS: RAMIPRIL 5 MG CAP PO SCH (09:01)
[2019-02-03] MEDS: AMLODIPINE 10 MG TAB PO SCH (09:02)
[2019-02-03] MEDS: VITAMIN D 5,000 UNIT CAP PO SCH (09:03)
[2019-02-03] MEDS: CARVEDILOL 25 MG TAB PO SCH ×2 (09:03→21:43)
[2019-02-03] MEDS: CALCITROL 0.25 MCG CAP PO SCH (09:05)
[2019-02-03] MEDS ORDERED: EPOETIN ALFA 20,000 UNIT/ML SQ ONE (09:11)
--- NOTE | 2019-02-03 09:14 | P.PN ---
Date of Service: 02/03/19 Vital Signs Temp Pulse Resp BP Pulse Ox 97.0 F 71 20 117/79 98 02/03/19 08:00 02/03/19 09:03 02/03/19 08:00 02/03/19 09:03 02/03/19 08:00 Medications Acetaminophen (Tylenol -Extra Strength) 500 mg PO Q4HP PRN PRN Reason: TEMP > 100' F Stop: 03/01/19 15:57 Last Admin: 02/02/19 22:23 Dose: 500 mg Amlodipine Besylate (Norvasc) 10 mg PO DAILY [facility] Stop: 03/02/19 09:01 Last Admin: 02/03/19 09:02 Dose: 10 mg Calcitriol (Rocaltrol) 0.5 mcg PO DAILY [facility] Stop: 03/02/19 09:01 Last Admin: 02/03/19 09:05 Dose: 0.5 mcg Carvedilol (Coreg) 25 mg PO BID [facility] Stop: 03/01/19 21:01 Last Admin: 02/03/19 09:03 Dose: 25 mg Cholecalciferol (Vitamin D 5,000 Iu Cap) 5,000 unit PO DAILY [facility] Stop: 03/02/19 09:01 Last Admin: 02/03/19 09:03 Dose: 5,000 unit Dextrose (Dextrose 50% Syringe) 12.5 gm IV PRN PRN PRN Reason: HYPOGLYCEMIA PROTOCOL Stop: 03/01/19 16:09 Epoetin Tommy (Procrit) 10,000 unit IV EVERY HD [facility] Stop: 03/01/19 20:46 Last Admin: 02/01/19 19:25 Dose: 10,000 unit Glucagon (Glucagen) 1 mg IM 1X PRN PRN Reason: HYPOGLYCEMIA Stop: 03/01/19 16:09 Heparin Sodium (Porcine) (Heparin 1,000 Units/Ml) 6,000 unit IJ EVERY HD PRN PRN Reason: FLUSH AFTER EACH USE Stop: 03/01/19 20:34 Albumin Human (Albumin 25%) 50 mls @ 100 mls/hr IV EVERY HD [facility] Stop: 03/01/19 21:01 Insulin Human Regular (Novolin -R) 0 unit SQ ACHS [facility]; Protocol Stop: 03/01/19 16:31 Last Admin: 02/03/19 07:30 Dose: Not Given Mannitol (Mannitol 12.5 Gm/50 Ml Vial) 12.5 gm IV EVERY HD PRN PRN Reason: Titrate to SBP (MUST DEFINE) Stop: 03/01/19 20:34 Nicotine (Nicoderm) 14 mg TD DAILY [facility] Stop: 03/05/19 09:09 Ondansetron HCl (Zofran) 4 mg IV Q4H PRN PRN Reason: NAUSEA / VOMITING Stop: 03/01/19 15:57 Last Admin: 01/31/19 18:10 Dose: 4 mg Ramipril (Altace) 5 mg PO DAILY [facility] Stop: 03/03/19 09:01 Last Admin: 02/03/19 09:01 Dose: 5 mg Sodium Chloride (Normal Saline Flush) 10 ml IV BID [facility] Stop: 03/01/19 21:01 Last Admin: 02/03/19 09:03 Dose: 10 ml Lab Results (last 24 hrs) 02/03/19 07:41: POC Glucose 120 02/03/19 06:27: WBC 8.4 D, RBC 2.74 L D, Hgb 8.5 L, Hct 25.1 L, MCV 91.7, MCH 31.1, MCHC 33.9, RDW 14.0, Plt Count 140 L, MPV 7.9, Neutrophils % 66.3, Lymphocytes % 21.4, Monocytes % 9.7, Eosinophils % 2.1, Basophils % 0.5, Absolute Neutrophils 5.6, Absolute Lymphocytes 1.8, Absolute Monocytes 0.8, Absolute Eosinophils 0.2, Absolute Basophils 0.0 02/03/19 06:10: Sodium 145, Potassium 3.8, Chloride 114 H, Carbon Dioxide 23, BUN 38 H, Creatinine 5.44 H*, Estimated GFR 10 L, Glucose 119 H, Calcium 7.8 L, Total Bilirubin 0.3, AST 26, ALT 15, Alkaline Phosphatase 63, Serum Total Protein 6.0 L, Albumin 2.4 L, Globulin 3.6 H, Albumin/Globulin Ratio 0.7 L 02/02/19 20:26: POC Glucose 126 H 02/02/19 18:14: POC Glucose 126 H 02/02/19 15:57: Hgb 8.2 L, Hct 24.1 L D 02/02/19 12:00: POC Glucose 124 H 02/01/19 06:56: ABO/Rh A POSITIVE, Antibody Screen Negative, Crossmatch See Detail Microbiology Results 02/01/19 16:40 Clean Catch Urine [place] Count - Final >100,000 CFU/ML. 02/01/19 16:40 Clean Catch Urine - Final Escherichia Coli Assessment/ Plan: Nephrology. Doing well. CPS stable without CP or SOB. No acute events overnight. Vitals, medications, blood work and imaging reviewed in the chart. General: In no apparent distress, Oriented x3, Cooperative HEENT: Atraumatic Neck: Supple Respiratory: Clear to auscultation bilaterally Cardiovascular: No edema, Regular rate/rhythm Gastrointestinal: Soft and benign, Non-distended Musculoskeletal: No clubbing, No contractures Integumentary: No rashes, No cyanosis Neurological: Normal speech Laboratory Data (last 24 hrs) 01/31/19 05:30: PT 11.0, INR 0.93, APTT 32.7 01/31/19 05:30: Sodium 142, Potassium 5.5 H, BUN 83 H, Creatinine 9.38 H*, Glucose 89, Uric Acid 6.6 H, Total Bilirubin 0.2, AST 35, ALT 19, Alkaline Phosphatase 77 01/31/19 05:30: WBC 4.7, Hgb 7.2 L*, Hct 21.9 L, Plt Count 154 01/30/19 16:35: Sodium 140, Potassium 5.1, BUN 84 H, Creatinine 9.58 H*, Glucose 142 H, Phosphorus 5.1 H, Magnesium 2.5 H, Total Bilirubin 0.3, AST 33, ALT 17, Alkaline Phosphatase 80 Imagings Data: EXAM DESCRIPTION: [place] Single View01/30/2019 4:58 pm CLINICAL HISTORY: Shortness of breath COMPARISON: 2013 FINDINGS: The lungs appear clear of acute infiltrate. The heart is moderately enlarged IMPRESSION: No acute abnormalities displayed Conclusions/Impression: A/ ESRD with uremia. HD to be initiated 01-31-19. Hyperkalemia. Acidosis. HTN with CKD/ CHF. Diastolic CHF, chronic. Anemia in CKD. DM II with CKD. JUANITO/ Secondary HyperPTH. P/ Continue current POC and Medications. Admitted to the hospital for uremia complicated by acidosis, hyperkalemia and anemia. Difficult tunnelled CVC insertion so converted to groin CVC. Give Epo. Start nicotine patch for tobacco dependence. No NSAIDs. AM labs. Daily weight. Case reviewed with Dr. Lomeli. Pending transfer to a higher level facility for vascular evaluation. Temporary right groin catheter not working; recommend removal and will hold off on HD at this time.
[2019-02-03] MEDS: NICOTINE 14 MG/PAT TD SCH (09:50)
[2019-02-03] MEDS: ACETAMINOPHEN 500 MG TAB PO PRN ×2 (09:56→21:45)
--- NOTE | 2019-02-03 13:01 | P.PN ---
Subjective Date of Service: 02/03/19 Chief Complaint: Uremia Patient seen and examined at bedside with RN. Chart reviewed. Case discussed with general surgery, nephrology, vascular surgeon at the tertiary center as well. Currently patient is awaiting permanent catheter placement at the tertiary center. No complaints to offer overnight. Has been doing well overall. Review of Systems 10-point ROS is otherwise unremarkable Physical Examination - Vital Signs Temperature: 97.0 F Blood Pressure: 117/79 Pulse: 71 Respirations: 20 Pulse Ox (%): 98 - Physical Exam General: Alert, In no apparent distress HEENT: Atraumatic, PERRLA, EOMI Neck: Supple, JVD not distended Respiratory: Clear to auscultation bilaterally, Normal air movement Cardiovascular: Regular rate/rhythm, Normal S1 S2 Gastrointestinal: Normal bowel sounds, No tenderness Musculoskeletal: No tenderness Integumentary: No rashes Neurological: Normal speech, Normal tone, Normal affect Lymphatics: No axilla or inguinal lymphadenopathy - Studies Laboratory Data (last 24 hrs) 02/03/19 06:27: WBC 8.4 D, Hgb 8.5 L, Hct 25.1 L, Plt Count 140 L 02/03/19 06:10: Sodium 145, Potassium 3.8, BUN 38 H, Creatinine 5.44 H*, Glucose 119 H, Total Bilirubin 0.3, AST 26, ALT 15, Alkaline Phosphatase 63 02/02/19 15:57: Hgb 8.2 L, Hct 24.1 L D Microbiology Data (last 24 hrs): 02/01/19 16:40 Clean Catch Urine [place] Count - Final >100,000 CFU/ML. 02/01/19 16:40 Clean Catch Urine - Final Escherichia Coli Medications List Reviewed: Yes Assessment And Plan - Plan Assessment and plan 1. End stage renal disease, now started on dialysis -if patient was initially accepted for transfer to a tertiary center however tertiary center has requested the patient get this procedure done and there outpatient center and the return back to our hospital for further care. Patient was scheduled yesterday for the tunnel catheter and outpatient center however due to patient being transfused blood her tunnel catheter was rescheduled for Tuesday. -patient did have temporary catheter placed here for hemodialysis however temporary catheter is dysfunctional this a.m. will remove the catheter and await the permanent catheter placement. -will keep patient NPO after midnight on Tuesday -will initiate dialysis after her permanent catheter has been placed. -nephrology in general surgery consulted here in the hospital. 2.Hyperkalemia, corrected. 3.Anemia, acute on chronic, secondary to chronic kidney disease, on dialysis. -s/p 2 units of PRBCs. -We will monitor H and H. -stool occult negative at this time 4. Diabetes mellitus type 2, szf-qxqokmo-ekaoolqso, with diabetic gastroparesis. -We will continue sliding scale insulin and monitor Accu-Cheks. 5.Mixed hyperlipidemia. 6.Major depressive disorder, single episode, in remission. Disposition. If patient currently awaiting if hemodialysis catheter placement. The patient could be referred to a different facility, however, at this time if she gets a bed today, they will not likely do a procedure on the weekend similar to [facility], and she would be waiting till Tuesday regardless. Case was discussed with field case manager, nephrology and general surgery at this time Discharge Plan: Other Plan to discharge in: Greater than 2 days - Code Status/Comfort Care Code Status Assessed: Yes Critical Care: No
[2019-02-04] MEDS: HYDRALAZINE HCL 20 MG/ML VIAL IV PRN ×2 (00:46→11:54)
[2019-02-04] MEDS: INSULIN -REGULAR HUMAN 50 UNIT/0.5 ML ML SQ SCH ×4 (07:30→20:14)
[2019-02-04] MEDS: CARVEDILOL 25 MG TAB PO SCH ×2 (08:21→20:39)
[2019-02-04] MEDS: CALCITROL 0.25 MCG CAP PO SCH (08:21)
[2019-02-04] MEDS: VITAMIN D 5,000 UNIT CAP PO SCH (08:21)
[2019-02-04] MEDS: NICOTINE 14 MG/PAT TD SCH (08:21)
[2019-02-04] MEDS: AMLODIPINE 10 MG TAB PO SCH (08:22)
[2019-02-04] MEDS: RAMIPRIL 5 MG CAP PO SCH (08:22)
[2019-02-04] MEDS: ONDANSETRON 4 MG/2 ML VIAL IV PRN (08:53)
[2019-02-04] MEDS ORDERED: NICOTINE 14 MG/PAT TD SCH (09:00)
[2019-02-04 09:33] LABS: Absolute Lymphocytes (CBC) 1.5 K/uL (0.7-4.9); Absolute Monocytes 0.8 K/uL (0.1-1.3); Absolute Neutrophil 6.3 K/uL (1.8-8.0); Basophils % 0.4 % (0-1.3); Eosinophils % 2.2 % (0-4.4); Hematocrit 24.9 % (36.0-45.0); Lymphocytes % 17.4 % (15.3-44.8); MPV 7.9 fL (7.6-11.3); Monocytes % 9.1 % (3.3-12.3); RBC Red Blood Cell Count 2.69 M/uL (3.86-4.86)
[2019-02-04 10:03] LABS: Albumin 2.4 g/dL (3.4-5.0); Bilirubin Total 0.3 mg/dL (0.2-1.0); Potassium 3.9 mmol/L (3.5-5.1); Protein, Total 6.1 g/dL (6.4-8.2)
--- NOTE | 2019-02-04 10:41 | P.PN ---
Subjective Date of Service: 02/04/19 Chief Complaint: Uremia Patient seen and examined at bedside with RN. Chart reviewed. Case discussed with general surgery, nephrology, vascular surgeon at the tertiary center as well. Currently patient is awaiting HD permanent catheter placement at the tertiary center. No complaints to offer overnight. Has been having nausea and vomiting this AM. Given Zofran. NPO after midnight today for procedure lula. Review of Systems 10-point ROS is otherwise unremarkable Physical Examination - Vital Signs Temperature: 98.3 F Blood Pressure: 165/72 Pulse: 81 Respirations: 20 Pulse Ox (%): 100 - Physical Exam General: Alert, In no apparent distress HEENT: Atraumatic, PERRLA, EOMI Neck: Supple, JVD not distended Respiratory: Clear to auscultation bilaterally, Normal air movement Cardiovascular: Regular rate/rhythm, Normal S1 S2 Gastrointestinal: Normal bowel sounds, No tenderness Musculoskeletal: No tenderness Integumentary: No rashes Neurological: Normal speech, Normal tone, Normal affect Lymphatics: No axilla or inguinal lymphadenopathy - Studies Laboratory Data (last 24 hrs) 02/04/19 09:26: Sodium 145, Potassium 3.9, BUN 47 H, Creatinine 6.14 H*, Glucose 129 H, Total Bilirubin 0.3, AST 30, ALT 17, Alkaline Phosphatase 71 02/04/19 09:26: WBC 8.8, Hgb 8.3 L, Hct 24.9 L, Plt Count 153 Microbiology Data (last 24 hrs): 02/01/19 16:40 Clean Catch Urine [place] Count - Final >100,000 CFU/ML. 02/01/19 16:40 Clean Catch Urine - Final Escherichia Coli Medications List Reviewed: Yes Assessment And Plan - Plan Assessment and plan 1. End stage renal disease, now started on dialysis. -Pt needs Perm HD catherter Placed by Vascular. -Failed Placement by General Surgery here in the hospital. -Patient was initially accepted for transfer to a tertiary center for HD catheter Placement. However [facility] has requested that patient get this procedure in there outpatient center and be returned back to our hospital for further care. -Patient was scheduled Tuesday for the tunnel catheter at the outpatient center however due to patient being transfused blood the procedure was rescheduled for Tuesday. -patient did have temporary catheter placed here for hemodialysis, however temporary catheter was dysfunctional, and thus removed. -will keep patient NPO after midnight today -will initiate dialysis after her permanent catheter has been placed. -nephrology in general surgery consulted here in the hospital. 2.Hyperkalemia, corrected. 3.Anemia, acute on chronic, secondary to chronic kidney disease, on dialysis. -s/p 2 units of PRBCs. -We will monitor H and H. -stool occult negative at this time 4. Diabetes mellitus type 2, [id number], with diabetic gastroparesis. -We will continue sliding scale insulin and monitor Accu-Cheks. 5.Mixed hyperlipidemia. 6.Major depressive disorder, single episode, in remission. Disposition. Patient currently awaiting hemodialysis catheter placement. The patient could be referred to a different facility, however, at this time if she gets a bed today, they will not likely do a procedure on the weekend similar to . [place], and she would be waiting till Tuesday regardless. Case was discussed with briefcase sewer, nephrology and general surgery at this time all in agreement for HD catheter placement lula [facility]. Discharge Plan: Other Plan to discharge in: Greater than 2 days - Code Status/Comfort Care Code Status Assessed: Yes Critical Care: No
[2019-02-04] MEDS ORDERED: LORATADINE 10 MG TAB PO PRN (15:46)
[2019-02-04] MEDS ORDERED: BENZONATATE 100 MG CAP PO PRN (15:46)
[2019-02-04] MEDS ORDERED: LORATADINE/PSEUDO 12HR TAB PO ONE (16:00)
[2019-02-04] MEDS: ACETAMINOPHEN 500 MG TAB PO PRN (16:57)
[2019-02-04] MEDS ORDERED: Meropenem 1000 MG/VIAL IV SCH (17:00)
[2019-02-04 18:22] VITALS: BMI 26.2
--- NOTE | 2019-02-04 19:04 | P.PN ---
Date of Service: 02/04/19 Vital Signs Temp Pulse Resp BP Pulse Ox 97.8 F 84 18 155/70 H 99 02/04/19 16:00 02/04/19 16:00 02/04/19 16:00 02/04/19 16:00 02/04/19 16:00 Medications Acetaminophen (Tylenol -Extra Strength) 500 mg PO Q4HP PRN PRN Reason: TEMP > 100' F Stop: 03/01/19 15:57 Last Admin: 02/04/19 16:57 Dose: 500 mg Amlodipine Besylate (Norvasc) 10 mg PO DAILY [facility] Stop: 03/02/19 09:01 Last Admin: 02/04/19 08:22 Dose: 10 mg Benzonatate (Tessalon Perle) 100 mg PO TID PRN PRN Reason: COUGH Stop: 03/06/19 15:47 Last Admin: 02/04/19 16:56 Dose: 100 mg Calcitriol (Rocaltrol) 0.5 mcg PO DAILY [facility] Stop: 03/02/19 09:01 Last Admin: 02/04/19 08:21 Dose: 0.5 mcg Carvedilol (Coreg) 25 mg PO BID [facility] Stop: 03/01/19 21:01 Last Admin: 02/04/19 08:21 Dose: 25 mg Cholecalciferol (Vitamin D 5,000 Iu Cap) 5,000 unit PO DAILY [facility] Stop: 03/02/19 09:01 Last Admin: 02/04/19 08:21 Dose: 5,000 unit Dextrose (Dextrose 50% Syringe) 12.5 gm IV PRN PRN PRN Reason: HYPOGLYCEMIA PROTOCOL Stop: 03/01/19 16:09 Epoetin Tommy (Procrit) 10,000 unit IV EVERY HD [facility] Stop: 03/01/19 20:46 Last Admin: 02/01/19 19:25 Dose: 10,000 unit Glucagon (Glucagen) 1 mg IM 1X PRN PRN Reason: HYPOGLYCEMIA Stop: 03/01/19 16:09 Heparin Sodium (Porcine) (Heparin 1,000 Units/Ml) 6,000 unit IJ EVERY HD PRN PRN Reason: FLUSH AFTER EACH USE Stop: 03/01/19 20:34 Hydralazine HCl (Apresoline) 10 mg IV Q6HP PRN PRN Reason: Titrate to SBP (MUST DEFINE) Stop: 03/05/19 23:56 Last Admin: 02/04/19 11:54 Dose: 10 mg Albumin Human (Albumin 25%) 50 mls @ 100 mls/hr IV EVERY HD [facility] Stop: 03/01/19 21:01 Insulin Human Regular (Novolin -R) 0 unit SQ ACHS [facility]; Protocol Stop: 03/01/19 16:31 Last Admin: 02/04/19 16:30 Dose: Not Given Loratadine (Claritin) 10 mg PO DAILY PRN PRN Reason: ALLERGIES Stop: 03/06/19 15:47 Mannitol (Mannitol 12.5 Gm/50 Ml Vial) 12.5 gm IV EVERY HD PRN PRN Reason: Titrate to SBP (MUST DEFINE) Stop: 03/01/19 20:34 Nicotine (Nicoderm) 14 mg TD DAILY [facility] Stop: 03/05/19 09:09 Last Admin: 02/04/19 08:21 Dose: 14 mg Ondansetron HCl (Zofran) 4 mg IV Q4H PRN PRN Reason: NAUSEA / VOMITING Stop: 03/01/19 15:57 Last Admin: 02/04/19 08:53 Dose: 4 mg Ramipril (Altace) 5 mg PO DAILY [facility] Stop: 03/03/19 09:01 Last Admin: 02/04/19 08:22 Dose: 5 mg Sodium Chloride (Normal Saline Flush) 10 ml IV BID [facility] Stop: 03/01/19 21:01 Last Admin: 02/04/19 08:23 Dose: 10 ml Lab Results (last 24 hrs) 02/04/19 16:25: POC Glucose 167 H 02/04/19 11:43: POC Glucose 117 02/04/19 09:26: Sodium 145, Potassium 3.9, Chloride 116 H, Carbon Dioxide 21, BUN 47 H, Creatinine 6.14 H*, Estimated GFR 8 L, Glucose 129 H, Calcium 8.0 L, Total Bilirubin 0.3, AST 30, ALT 17, Alkaline Phosphatase 71, Serum Total Protein 6.1 L, Albumin 2.4 L, Globulin 3.7 H, Albumin/Globulin Ratio 0.6 L 02/04/19 09:26: WBC 8.8, RBC 2.69 L, Hgb 8.3 L, Hct 24.9 L, MCV 92.7, MCH 30.8, MCHC 33.2, RDW 13.6, Plt Count 153, MPV 7.9, Neutrophils % 70.9, Lymphocytes % 17.4, Monocytes % 9.1, Eosinophils % 2.2, Basophils % 0.4, Absolute Neutrophils 6.3, Absolute Lymphocytes 1.5, Absolute Monocytes 0.8, Absolute Eosinophils 0.2 , Absolute Basophils 0.0 02/04/19 06:51: POC Glucose 129 H 02/03/19 19:56: POC Glucose 265 H Microbiology Results 02/03/19 13:39 Catheter Tip - Right Groin Culture & Sensitivity - Preliminary 02/01/19 16:40 Clean Catch Urine [place] Count - Final >100,000 CFU/ML. 02/01/19 16:40 Clean Catch Urine - Final Escherichia Coli Assessment/ Plan: Nephrology. Doing well. CPS stable without CP or SOB. Reports cough and congestion. Nicotine patch is helping with her craving. No acute events overnight. Vitals, medications, blood work and imaging reviewed in the chart. General: In no apparent distress, Oriented x3, Cooperative HEENT: Atraumatic Neck: Supple Respiratory: Clear to auscultation bilaterally Cardiovascular: No edema, Regular rate/rhythm Gastrointestinal: Soft and benign, Non-distended Musculoskeletal: No clubbing, No contractures Integumentary: No rashes, No cyanosis Neurological: Normal speech Laboratory Data (last 24 hrs) 01/31/19 05:30: PT 11.0, INR 0.93, APTT 32.7 01/31/19 05:30: Sodium 142, Potassium 5.5 H, BUN 83 H, Creatinine 9.38 H*, Glucose 89, Uric Acid 6.6 H, Total Bilirubin 0.2, AST 35, ALT 19, Alkaline Phosphatase 77 01/31/19 05:30: WBC 4.7, Hgb 7.2 L*, Hct 21.9 L, Plt Count 154 01/30/19 16:35: Sodium 140, Potassium 5.1, BUN 84 H, Creatinine 9.58 H*, Glucose 142 H, Phosphorus 5.1 H, Magnesium 2.5 H, Total Bilirubin 0.3, AST 33, ALT 17, Alkaline Phosphatase 80 Imagings Data: EXAM DESCRIPTION: Robbin Single View01/30/2019 4:58 pm CLINICAL HISTORY: Shortness of breath COMPARISON: 2014 FINDINGS: The lungs appear clear of acute infiltrate. The heart is moderately enlarged IMPRESSION: No acute abnormalities displayed Conclusions/Impression: A/ ESRD with uremia. HD to be initiated 01-31-19. Hyperkalemia. Acidosis. HTN with CKD/ CHF. Diastolic CHF, chronic. Anemia in CKD. DM II with CKD. JUANITO/ Secondary HyperPTH. P/ Continue current POC and Medications. Admitted to the hospital for uremia complicated by acidosis, hyperkalemia and anemia. Difficult tunnelled CVC insertion so converted to groin CVC. Titrate nicotine patch as needed. Give tessalon perles and claritin for cough and congestion. No treatment for asymptomatic E.coli cystitis vs colonization. No NSAIDs. AM labs. Daily weight. Case reviewed with Dr. Lomeli. Pending transfer to a higher level facility for vascular evaluation. Placement at the [facility] Dialysis pending.
[2019-02-05] MEDS: HYDRALAZINE HCL 20 MG/ML VIAL IV PRN (04:05)
[2019-02-05 04:06] LABS: HBsAG Nonreactive (Nonreactive)
[2019-02-05] MEDS: ACETAMINOPHEN 500 MG TAB PO PRN (06:01)
[2019-02-05 06:04] LABS: Absolute Lymphocytes (CBC) 1.8 K/uL (0.7-4.9); Absolute Monocytes 0.8 K/uL (0.1-1.3); Absolute Neutrophil 6.5 K/uL (1.8-8.0); Basophils % 0.5 % (0-1.3); Eosinophils % 2.1 % (0-4.4); Hematocrit 26.8 % (36.0-45.0); Lymphocytes % 19.4 % (15.3-44.8); Monocytes % 8.5 % (3.3-12.3); RBC Red Blood Cell Count 2.87 M/uL (3.86-4.86)
[2019-02-05 06:17] LABS: Albumin 2.7 g/dL (3.4-5.0); Bilirubin Total 0.3 mg/dL (0.2-1.0); Potassium 4.2 mmol/L (3.5-5.1); Protein, Total 6.8 g/dL (6.4-8.2)
[2019-02-05] MEDS: INSULIN -REGULAR HUMAN 50 UNIT/0.5 ML ML SQ SCH ×4 (07:30→23:42)
[2019-02-05] MEDS: NICOTINE 14 MG/PAT TD SCH (08:21)
[2019-02-05] MEDS: RAMIPRIL 5 MG CAP PO SCH (08:22)
[2019-02-05] MEDS: CARVEDILOL 25 MG TAB PO SCH ×2 (08:22→23:42)
[2019-02-05] MEDS: CALCITROL 0.25 MCG CAP PO SCH (08:22)
[2019-02-05] MEDS: AMLODIPINE 10 MG TAB PO SCH (08:22)
[2019-02-05] MEDS: VITAMIN D 5,000 UNIT CAP PO SCH (08:23)
[2019-02-05] MEDS ORDERED: BALANCED SALT IRRIG PLAIN 500 ML BTL IRR ONE (09:24)
[2019-02-05] MEDS ORDERED: NS 0.9% VIAL 0 ML ONE (09:24)
[2019-02-05] MEDS ORDERED: EPINEPHRINE/PF 1 MG/ML AMP ONE (09:24)
[2019-02-05] MEDS ORDERED: MOXIFLOXACIN HCL 10 DROPS/ML **OR USE OPTH ONE (09:25)
[2019-02-05] MEDS ORDERED: DUOVISC 1 KIT OPTH ONE (09:25)
--- NOTE | 2019-02-05 14:07 | P.PN ---
Subjective Date of Service: 02/05/19 Chief Complaint: Uremia Patient seen and examined at bedside with RN. Chart reviewed. Case discussed with general surgery, nephrology, vascular surgeon at the [facility] as well. Currently patient is awaiting HD permanent catheter placement at the [facility]. No complaints to offer overnight. Scheduled for HD placement today at 1PM at [facility] and Will return back to the facility after that. Review of Systems 10-point ROS is otherwise unremarkable Physical Examination - Vital Signs Temperature: 98.1 F Blood Pressure: 181/85 Pulse: 76 Respirations: 18 Pulse Ox (%): 100 - Physical Exam General: Alert, In no apparent distress HEENT: Atraumatic, PERRLA, EOMI Neck: Supple, JVD not distended Respiratory: Clear to auscultation bilaterally, Normal air movement Cardiovascular: Regular rate/rhythm, Normal S1 S2 Gastrointestinal: Normal bowel sounds, No tenderness Musculoskeletal: No tenderness Integumentary: No rashes Neurological: Normal speech, Normal tone, Normal affect Lymphatics: No axilla or inguinal lymphadenopathy - Studies Laboratory Data (last 24 hrs) 02/05/19 05:19: Sodium 144, Potassium 4.2, BUN 50 H, Creatinine 6.68 H*, Glucose 127 H, Total Bilirubin 0.3, AST 32, ALT 17, Alkaline Phosphatase 72 02/05/19 05:19: WBC 9.4, Hgb 8.9 L, Hct 26.8 L, Plt Count 187 D Medications List Reviewed: Yes Assessment And Plan - Plan Assessment and plan 1. End stage renal disease, now started on dialysis. -Pt needs Perm HD catherter Placed by Vascular. -Failed Placement by General Surgery here in the hospital. -Scheduled for HD placement at [facility] today at 1PM -will initiate dialysis after her permanent catheter has been placed. -nephrology in general surgery consulted here in the hospital. 2.Hyperkalemia, corrected. 3.Anemia, acute on chronic, secondary to chronic kidney disease, on dialysis. -s/p 2 units of PRBCs. -We will monitor H and H. -stool occult negative at this time 4. Diabetes mellitus type 2, [id number], with diabetic gastroparesis. -We will continue sliding scale insulin and monitor Accu-Cheks. 5.Mixed hyperlipidemia. 6.Major depressive disorder, single episode, in remission. Disposition. Patient currently awaiting hemodialysis catheter placement. Discharge Plan: Home Plan to discharge in: Greater than 2 days - Code Status/Comfort Care Code Status Assessed: Yes Critical Care: No
[2019-02-06] MEDS: MORPHINE 4 MG/ML SYR IV PRN ×2 (00:22→05:47)
[2019-02-06 06:12] LABS: Albumin 2.3 g/dL (3.4-5.0); Bilirubin Total 0.3 mg/dL (0.2-1.0); Potassium 4.7 mmol/L (3.5-5.1)
[2019-02-06 06:14] LABS: Absolute Lymphocytes (CBC) 1.8 K/uL (0.7-4.9); Absolute Monocytes 0.7 K/uL (0.1-1.3); Absolute Neutrophil 5.2 K/uL (1.8-8.0); Basophils % 0.5 % (0-1.3); Eosinophils % 1.9 % (0-4.4); Lymphocytes % 22.4 % (15.3-44.8); Monocytes % 9.4 % (3.3-12.3); RBC Red Blood Cell Count 2.64 M/uL (3.86-4.86)
[2019-02-06] MEDS: INSULIN -REGULAR HUMAN 50 UNIT/0.5 ML ML SQ SCH ×4 (07:30→20:24)
[2019-02-06] MEDS: CARVEDILOL 25 MG TAB PO SCH ×2 (08:56→20:22)
[2019-02-06] MEDS: NICOTINE 14 MG/PAT TD SCH (08:56)
[2019-02-06] MEDS: CALCITROL 0.25 MCG CAP PO SCH (08:56)
[2019-02-06] MEDS: LORATADINE 10 MG TAB PO SCH (08:57)
[2019-02-06] MEDS: AMLODIPINE 10 MG TAB PO SCH (08:57)
[2019-02-06] MEDS: RAMIPRIL 5 MG CAP PO SCH (08:57)
[2019-02-06] MEDS: VITAMIN D 5,000 UNIT CAP PO SCH (08:58)
[2019-02-06] MEDS: ONDANSETRON 4 MG/2 ML VIAL IV PRN (09:07)
[2019-02-06] MEDS: EPOETIN ALFA 10,000 UNIT/ML VIAL IV SCH (10:43)
[2019-02-06 14:10] LABS: Urine Appearance CLOUDY; Urine Bilirubin NEGATIVE (NEG); Urine Blood 1+ (NEG); Urine Color YELLOW; Urine Glucose TRACE (NEG); Urine Protein 3+ (NEG); Urine Specific Gravity 1.015 (1.005-1.030); Urine Urobilinogen 0.2 mg/dL (0.2-1.0); Urine pH 7.5 (5.0-7.0)
[2019-02-06 14:24] LABS: Urine Microscopic Reflex ORDER UMIC
[2019-02-06 14:29] LABS: Urine Bacteria 20-50 /HPF (<20); Urine Culture Reflex Order REFLEXED
--- NOTE | 2019-02-06 16:31 | P.PN ---
Subjective Date of Service: 02/06/19 Chief Complaint: Uremia Patient seen and examined at bedside with RN. Chart reviewed. S/P HD catheter Placement at the [facility]. Currently in HD doing well. Review of Systems 10-point ROS is otherwise unremarkable Physical Examination - Vital Signs Temperature: 97.1 F Blood Pressure: 195/98 Pulse: 80 Respirations: 17 Pulse Ox (%): 98 - Physical Exam General: Alert, In no apparent distress HEENT: Atraumatic, PERRLA, EOMI Neck: Supple, JVD not distended Respiratory: Clear to auscultation bilaterally, Normal air movement Cardiovascular: Regular rate/rhythm, Normal S1 S2 Gastrointestinal: Normal bowel sounds, No tenderness Musculoskeletal: No tenderness Integumentary: No rashes Neurological: Normal speech, Normal tone, Normal affect Lymphatics: No axilla or inguinal lymphadenopathy - Studies Laboratory Data (last 24 hrs) 02/06/19 04:59: Sodium 145, Potassium 4.7, BUN 55 H, Creatinine 7.04 H*, Glucose 104, Total Bilirubin 0.3, AST 26, ALT 17, Alkaline Phosphatase 69 02/06/19 04:59: WBC 8.0 D, Hgb 8.1 L, Hct 25.0 L, Plt Count 173 Microbiology Data (last 24 hrs): 02/03/19 13:39 Catheter Tip - Right Groin Culture & Sensitivity - Final Medications List Reviewed: Yes Assessment And Plan - Plan Assessment and plan 1. End stage renal disease, now started on dialysis. -S/p HD catheter Placement POD # 1 now -HD setup with Nephrology -CM consulted for HD setup OP. 2.Hyperkalemia, corrected. 3.Anemia, acute on chronic, secondary to chronic kidney disease, on dialysis. -s/p 2 units of PRBCs. -We will monitor H and H. -stool occult negative at this time 4. Diabetes mellitus type 2, [id number], with diabetic gastroparesis. -We will continue sliding scale insulin and monitor Accu-Cheks. 5.Mixed hyperlipidemia. 6.Major depressive disorder, single episode, in remission. Disposition. Patient currently awaiting HD setup OP Discharge Plan: Home Plan to discharge in: 48 Hours - Code Status/Comfort Care Code Status Assessed: Yes Critical Care: No
--- NOTE | 2019-02-06 20:16 | P.PN ---
Date of Service: 02/06/19 Vital Signs Temp Pulse Resp BP Pulse Ox 97.1 F 80 17 195/98 H 98 02/06/19 16:31 02/06/19 16:31 02/06/19 16:31 02/06/19 16:31 02/06/19 16:31 Medications Acetaminophen (Tylenol -Extra Strength) 500 mg PO Q4HP PRN PRN Reason: TEMP > 100' F Stop: 03/01/19 15:57 Last Admin: 02/05/19 06:01 Dose: 500 mg Amlodipine Besylate (Norvasc) 10 mg PO DAILY [facility] Stop: 03/02/19 09:01 Last Admin: 02/06/19 08:57 Dose: 10 mg Benzonatate (Tessalon Perle) 100 mg PO TID PRN PRN Reason: COUGH Stop: 03/06/19 15:47 Last Admin: 02/04/19 16:56 Dose: 100 mg Calcitriol (Rocaltrol) 0.5 mcg PO DAILY [facility] Stop: 03/02/19 09:01 Last Admin: 02/06/19 08:56 Dose: 0.5 mcg Carvedilol (Coreg) 25 mg PO BID [facility] Stop: 03/01/19 21:01 Last Admin: 02/06/19 08:56 Dose: 25 mg Cholecalciferol (Vitamin D 5,000 Iu Cap) 5,000 unit PO DAILY [facility] Stop: 03/02/19 09:01 Last Admin: 02/06/19 08:58 Dose: 5,000 unit Dextrose (Dextrose 50% Syringe) 12.5 gm IV PRN PRN PRN Reason: HYPOGLYCEMIA PROTOCOL Stop: 03/01/19 16:09 Epoetin Tommy (Procrit) 10,000 unit IV EVERY HD [facility] Stop: 03/01/19 20:46 Last Admin: 02/06/19 10:43 Dose: 10,000 unit Glucagon (Glucagen) 1 mg IM 1X PRN PRN Reason: HYPOGLYCEMIA Stop: 03/01/19 16:09 Heparin Sodium (Porcine) (Heparin 1,000 Units/Ml) 6,000 unit IJ EVERY HD PRN PRN Reason: FLUSH AFTER EACH USE Stop: 03/01/19 20:34 Last Admin: 02/06/19 10:44 Dose: 6,000 unit Hydralazine HCl (Apresoline) 10 mg IV Q6HP PRN PRN Reason: Titrate to SBP (MUST DEFINE) Stop: 03/05/19 23:56 Last Admin: 02/05/19 04:05 Dose: 10 mg Albumin Human (Albumin 25%) 50 mls @ 100 mls/hr IV EVERY HD [facility] Stop: 03/01/19 21:01 Insulin Human Regular (Novolin -R) 0 unit SQ ACHS [facility]; Protocol Stop: 03/01/19 16:31 Last Admin: 02/06/19 16:16 Dose: Not Given Loratadine (Claritin) 10 mg PO DAILY [facility] Stop: 03/08/19 09:01 Last Admin: 02/06/19 08:57 Dose: 10 mg Mannitol (Mannitol 12.5 Gm/50 Ml Vial) 12.5 gm IV EVERY HD PRN PRN Reason: Titrate to SBP (MUST DEFINE) Stop: 03/01/19 20:34 Morphine Sulfate (Morphine Sulfate) 4 mg IV Q4H PRN PRN Reason: Pain scale 5-7 (Moderate) Stop: 03/07/19 23:50 Last Admin: 02/06/19 05:47 Dose: 4 mg Nicotine (Nicoderm) 14 mg TD DAILY [facility] Stop: 03/05/19 09:09 Last Admin: 02/06/19 08:56 Dose: 14 mg Ondansetron HCl (Zofran) 4 mg IV Q4H PRN PRN Reason: NAUSEA / VOMITING Stop: 03/01/19 15:57 Last Admin: 02/06/19 09:07 Dose: 4 mg Ramipril (Altace) 5 mg PO DAILY [facility] Stop: 03/03/19 09:01 Last Admin: 02/06/19 08:57 Dose: 5 mg Sodium Chloride (Normal Saline Flush) 10 ml IV BID [facility] Stop: 03/01/19 21:01 Last Admin: 02/06/19 08:58 Dose: 10 ml Lab Results (last 24 hrs) 02/06/19 16:14: POC Glucose 154 H 02/06/19 13:35: Urine Color Yellow, Urine Appearance Cloudy, Urine pH 7.5 H, Ur Specific [place] 1.015, Urine Ketones Negative, Urine Blood 1+ H, Urine Nitrite Negative, Urine Bilirubin Negative, Urine Urobilinogen 0.2, Ur Leukocyte Esterase 3+ H, Urine RBC 5-10 H, Urine WBC >50 H, Ur Squamous Epith Cells <5, Ur Urothelial Cells <5, Urine Bacteria 20-50 H, Urine Culture Reflexed Reflexed , Urine Glucose Trace, Urine Total Protein 3+ H 02/06/19 12:18: POC Glucose 76 02/06/19 07:51: POC Glucose 100 02/06/19 04:59: Sodium 145, Potassium 4.7, Chloride 115 H, Carbon Dioxide 21, BUN 55 H, Creatinine 7.04 H*, Estimated GFR 7 L, Glucose 104, Calcium 7.8 L, Total Bilirubin 0.3, AST 26, ALT 17, Alkaline Phosphatase 69, Serum Total Protein 6.0 L, Albumin 2.3 L, Globulin 3.7 H, Albumin/Globulin Ratio 0.6 L 02/06/19 04:59: WBC 8.0 D, RBC 2.64 L, Hgb 8.1 L, Hct 25.0 L, MCV 94.4, MCH 30.8, MCHC 32.6, RDW 13.8, Plt Count 173, MPV 8.0, Neutrophils % 65.8, Lymphocytes % 22.4, Monocytes % 9.4, Eosinophils % 1.9, Basophils % 0.5, Absolute Neutrophils 5.2, Absolute Lymphocytes 1.8, Absolute Monocytes 0.7, Absolute Eosinophils 0.2, Absolute Basophils 0.0 02/05/19 23:26: POC Glucose 134 H 02/01/19 06:56: Crossmatch See Detail Microbiology Results 02/03/19 13:39 Catheter Tip - Right Groin Culture & Sensitivity - Final 02/01/19 16:[address] Count - Final >100,000 CFU/ML. 02/01/19 16:40 Clean Catch Urine - Final Escherichia Coli Assessment/ Plan: Nephrology. Doing well. CPS stable without CP or SOB. No acute events overnight. Vitals, medications, blood work and imaging reviewed in the chart. General: In no apparent distress, Oriented x3, Cooperative HEENT: Atraumatic Neck: Supple Respiratory: Clear to auscultation bilaterally Cardiovascular: No edema, Regular rate/rhythm Gastrointestinal: Soft and benign, Non-distended Musculoskeletal: No clubbing, No contractures Integumentary: No rashes, No cyanosis Neurological: Normal speech Laboratory Data (last 24 hrs) 01/31/19 05:30: PT 11.0, INR 0.93, APTT 32.7 01/31/19 05:30: Sodium 142, Potassium 5.5 H, BUN 83 H, Creatinine 9.38 H*, Glucose 89, Uric Acid 6.6 H, Total Bilirubin 0.2, AST 35, ALT 19, Alkaline Phosphatase 77 01/31/19 05:30: WBC 4.7, Hgb 7.2 L*, Hct 21.9 L, Plt Count 154 01/30/19 16:35: Sodium 140, Potassium 5.1, BUN 84 H, Creatinine 9.58 H*, Glucose 142 H, Phosphorus 5.1 H, Magnesium 2.5 H, Total Bilirubin 0.3, AST 33, ALT 17, Alkaline Phosphatase 80 Imagings Data: EXAM DESCRIPTION: Robbin Single View01/30/2019 4:58 pm CLINICAL HISTORY: Shortness of breath COMPARISON: 2013 FINDINGS: The lungs appear clear of acute infiltrate. The heart is moderately enlarged IMPRESSION: No acute abnormalities displayed Conclusions/Impression: A/ ESRD with uremia. HD to be initiated 01-31-19. Hyperkalemia. Acidosis. HTN with CKD/ CHF. Diastolic CHF, chronic. Anemia in CKD. DM II with CKD. JUANITO/ Secondary HyperPTH. P/ Continue current POC and Medications. Admitted to the hospital for uremia complicated by acidosis, hyperkalemia and anemia. Difficult tunnelled CVC insertion so converted to groin CVC. Titrate nicotine patch as needed. No treatment for asymptomatic E.coli cystitis vs colonization. No NSAIDs. AM labs. Daily weight. Placement at the [facility] Dialysis pending.
[2019-02-07 05:57] LABS: Absolute Lymphocytes (CBC) 1.6 K/uL (0.7-4.9); Absolute Monocytes 0.8 K/uL (0.1-1.3); Absolute Neutrophil 4.2 K/uL (1.8-8.0); Basophils % 0.6 % (0-1.3); Eosinophils % 2.4 % (0-4.4); Lymphocytes % 23.1 % (15.3-44.8); Monocytes % 12.4 % (3.3-12.3); RBC Red Blood Cell Count 2.66 M/uL (3.86-4.86)
[2019-02-07 06:06] LABS: Albumin 2.3 g/dL (3.4-5.0); Bilirubin Total 0.3 mg/dL (0.2-1.0); Potassium 4.4 mmol/L (3.5-5.1)
[2019-02-07] MEDS: INSULIN -REGULAR HUMAN 50 UNIT/0.5 ML ML SQ SCH ×4 (07:30→21:00)
[2019-02-07] MEDS: CALCITROL 0.25 MCG CAP PO SCH (09:17)
[2019-02-07] MEDS: CARVEDILOL 25 MG TAB PO SCH ×2 (09:17→21:34)
[2019-02-07] MEDS: NICOTINE 14 MG/PAT TD SCH (09:17)
[2019-02-07] MEDS: RAMIPRIL 5 MG CAP PO SCH (09:18)
[2019-02-07] MEDS: AMLODIPINE 10 MG TAB PO SCH (09:18)
[2019-02-07] MEDS: LORATADINE 10 MG TAB PO SCH (09:18)
[2019-02-07] MEDS: VITAMIN D 5,000 UNIT CAP PO SCH (09:18)
[2019-02-07] MEDS: ACETAMINOPHEN 500 MG TAB PO PRN ×2 (09:18→21:34)
[2019-02-07] MEDS: EPOETIN ALFA 10,000 UNIT/ML VIAL IV SCH (15:05)
--- NOTE | 2019-02-07 17:33 | PN ---
Date of Progress Note: 02/07/2019 Subjective: The patient is seen and examined. She states that she is doing okay. No issues noted. Objective: Vital Signs: Reviewed and are stable. General: She appears in no acute distress. NECK: Right-sided tunneled dialysis catheter in place. Lungs: Clear. Extremities: Without any evidence of edema. Laboratory Data: Has been reviewed. Hemoglobin is stable at 8.2, hematocrit is 25. Impression: 1.End-stage renal disease, on dialysis. The patient has been started on dialysis and has been set u p at [facility] for Tuesday, , and Tuesday dialysis. 2.Hyperkalemia, improved after dialysis. 3.Anemia, status post 2 units of blood transfusions. Continue Epogen and follow up as outpatient. 4.Type 2 diabetes with diabetic gastroparesis. Continue insulin sliding scale. Plan: The patient is overall doing okay. Patient is okay to be discharged from Nephrology standpoin t after dialysis today and she can be followed up at the dialysis unit. Continue all medications. W ill possibly need Social Work services to arrange for dialysis and a the transportation for dialysis. Continue all other medications and plan of care. VV/MODL Voice ID: [id number] Report ID: [id number]
--- NOTE | 2019-02-07 17:43 | P.DS ---
Admission Date: 01/30/19 Discharge Date: 02/07/19 Disposition: ROUTINE DISCHARGE Discharge Condition: FAIR Reason for Admission: Uremia Consultations: General Surgery Vascular surgeon Nephrology Brief History of Present Illness: The patient is a 58-year-old female with past medical history of chronic kidney disease with recent creatinine, with baseline creatinine of 4, increased to 10, diabetes, hyperlipidemia, depression. This is a patient of Dr. Berry, who was admitted directly to the hospital for initiation of hemodialysis. The patient patient's labs from yesterday showed creatinine level of 10.6, elevated from 4, potassium was elevated at 5.7. The patient was also anemic at 7.6. The patient does report generalized weakness, weight loss of about 20 pounds in the past 6 months, some muscle fasciculations and spasms, decreased appetite. The patient's symptoms are constant, moderate, progressively worsening. She denies any NSAID use or recent changes in medications. The patient still makes urine. When the patient was seen on the floor, she was awake, alert, oriented x3, in some mild distress. Hospital Course: Hospital diagnosis 1.End stage renal disease, now started on dialysis. 2.Hyperkalemia, corrected. 3.Anemia, acute on chronic, secondary to chronic kidney disease, on dialysis. 4.Diabetes mellitus type 2, mmx-yfvugza-biyoclwzl, with diabetic gastroparesis. 5.Mixed hyperlipidemia. 6.Major depressive disorder, single episode, in remission. Hospital course Overall during the hospital stay patient remained stable Patient was initially admitted to the hospital for acute worsening of her chronic kidney disease. Patient had nephrology consulted who recommended patient be started on dialysis here in the hospital. Patient had General Surgery consulted for a temporary catheter and then permanent catheter placement for HD dialysis. Temporary catheter was obtained in the [facility]. Patient had 1st dialysis and tolerated well. After which patient was scheduled for permanent HD catheter however due to having unique anatomy general surgery was unable to get HD catheter placed here in the hospital. Patient and was referred over to vascular Surgery for HD catheter placement at 1 of the tertiary centers. Patient was accepted for catheter placement by vascular surgeon and had a catheter placed outpatient was returned back to the hospital to continue the dialysis. While awaiting HD catheter placement patient 's temporary catheter did malfunction and was not able to be used for 2 days. Patient eventually was able to get HD catheter permanently placed with vascular surgery and dialysis was initiated. Patient had marked improvement in her symptoms and then dialysis was set up for her outpatient for Tuesday. Patient then was discharged home under stable condition. If indeed the patient was returned to the ER for malfunctioning of her HD catheter it is recommended that patient be transferred to the tertiary center due to difficult anatomy and difficulty establishing a HD catheter without a vascular surgeon. Vital Signs/Physical Exam: Temp Pulse Resp BP Pulse Ox 98.4 F 77 18 168/75 H 99 02/07/19 12:00 02/07/19 12:00 02/07/19 12:00 02/07/19 12:02/07/19 12:00 General: Alert, In no apparent distress HEENT: Atraumatic, PERRLA, EOMI Neck: Supple, JVD not distended Respiratory: Clear to auscultation bilaterally, Normal air movement Cardiovascular: Regular rate/rhythm, Normal S1 S2 Gastrointestinal: Normal bowel sounds, No tenderness Musculoskeletal: No tenderness Integumentary: No rashes Neurological: Normal speech, Normal tone, Normal affect Lymphatics: No axilla or inguinal lymphadenopathy Laboratory Data at Discharge: WBC 6.9 K/uL (4.3-10.9) 02/07/19 05:16 Hgb 8.2 g/dL (12.0-15.0) L 02/07/19 05:16 Hct 25.0 % (36.0-45.0) L 02/07/19 05:16 Plt Count 153 K/uL (152-406) 02/07/19 05:16 PT 11.0 SECONDS (9.5-12.5) 01/31/19 05:30 INR 0.93 01/31/19 05:30 APTT 32.7 SECONDS (24.3-36.9) 01/31/19 05:30 Sodium 141 mmol/L (136-145) 02/07/19 05:16 Potassium 4.4 mmol/L (3.5-5.1) 02/07/19 05:16 BUN 32 mg/dL (7-18) H D 02/07/19 05:16 Creatinine 4.58 mg/dL (0.55-1.3) H D 02/07/19 05:16 Glucose 120 mg/dL (74-106) H 02/07/19 05:16 Uric Acid 6.6 mg/dL (2.6-6.0) H 01/31/19 05:30 Phosphorus 5.1 mg/dL (2.5-4.9) H 01/30/19 16:35 Magnesium 2.5 mg/dL (1.8-2.4) H 01/30/19 16:35 Total Bilirubin 0.3 mg/dL (0.2-1.0) 02/07/19 05:16 AST 25 U/L (15-37) 02/07/19 05:16 ALT 14 U/L (12-78) 02/07/19 05:16 Alkaline Phosphatase 77 U/L (45-117) 02/07/19 05:16 Home Medications: Amlodipine [Norvasc] 10 mg PO DAILY 01/30/19 Carvedilol [Coreg] 25 mg PO BID 01/30/19 Cholecalciferol (Vitamin D3) [Vitamin D 1000 Iu Tab] 1,000 unit PO DAILY Furosemide [Lasix] 40 mg PO BID 01/30/19 Patient Discharge Instructions: transfer to [facility] Diet: Renal Activity: Ad lisa Followup: Donald Berry DO [ACTIVE - CAN ADMIT] - 1 Week
[2019-02-07] MEDS: MORPHINE 4 MG/ML SYR IV PRN (21:39)
[2019-02-08] MEDS: HYDRALAZINE HCL 20 MG/ML VIAL IV PRN (04:16)
[2019-02-08 05:02] VITALS: O2SAT 97
[2019-02-08] MEDS: INSULIN -REGULAR HUMAN 50 UNIT/0.5 ML ML SQ SCH (07:30)
[2019-02-08] MEDS: CARVEDILOL 25 MG TAB PO SCH (09:11)
[2019-02-08] MEDS: VITAMIN D 5,000 UNIT CAP PO SCH (09:11)
[2019-02-08] MEDS: LORATADINE 10 MG TAB PO SCH (09:11)
[2019-02-08] MEDS: CALCITROL 0.25 MCG CAP PO SCH (09:11)
[2019-02-08] MEDS: NICOTINE 14 MG/PAT TD SCH (09:12)
[2019-02-08] MEDS: AMLODIPINE 10 MG TAB PO SCH (09:12)
[2019-02-08] MEDS: RAMIPRIL 5 MG CAP PO SCH (09:12)
[2019-02-08 10:57] VITALS: BP 173/75; TEMP 97.5
== END 2019-02-08 09:40 | disposition home or self-care (01) | DRG 291 ==
LOC: 2ND 15:51
PROVIDERS: ADMIT Family Medicine; ATTEND Family Medicine
PROC: 5A1D70Z Performance of Urinary Filtration, Intermittent, Less than 6 Hours Per Day (ICD-10-PCS; 2019-01-31)
PROC: 06HM33Z Insertion of Infusion Device into Right Femoral Vein, Percutaneous Approach (ICD-10-PCS; principal; 2019-01-31 12:30)
PROC: 30233N1 Transfusion of Nonautologous Red Blood Cells into Peripheral Vein, Percutaneous Approach (ICD-10-PCS; 2019-02-01)
PROC: 5A1D70Z Performance of Urinary Filtration, Intermittent, Less than 6 Hours Per Day (ICD-10-PCS; 2019-02-01)
PROC: 5A1D70Z Performance of Urinary Filtration, Intermittent, Less than 6 Hours Per Day (ICD-10-PCS; 2019-02-02)
PROC: 5A1D70Z Performance of Urinary Filtration, Intermittent, Less than 6 Hours Per Day (ICD-10-PCS; 2019-02-06)
PROC: 5A1D70Z Performance of Urinary Filtration, Intermittent, Less than 6 Hours Per Day (ICD-10-PCS; 2019-02-07)
DX: I13.2 Hypertensive heart and chronic kidney disease with heart failure and with stage 5 chronic kidney disease, or end stage renal disease (principal); N18.6 End stage renal disease; N17.9 Acute kidney failure, unspecified; E87.2 Acidosis; I50.32 Chronic diastolic (congestive) heart failure; N25.81 Secondary hyperparathyroidism of renal origin; E78.5 Hyperlipidemia, unspecified; F32.9 Major depressive disorder, single episode, unspecified; Z88.0 Allergy status to penicillin; F17.210 Nicotine dependence, cigarettes, uncomplicated; E87.5 Hyperkalemia; E78.2 Mixed hyperlipidemia; D63.1 Anemia in chronic kidney disease; E11.43 Type 2 diabetes mellitus with diabetic autonomic (poly)neuropathy; K31.84 Gastroparesis; Z79.84 Long term (current) use of oral hypoglycemic drugs; E11.22 Type 2 diabetes mellitus with diabetic chronic kidney disease; N25.0 Renal osteodystrophy
CPT/HCPCS: 36415; 36430; 71045; 76000; 80053; 81003; 81015; 82962; 83735; 84100; 84550; 85014; 85018; 85025; 85610; 85730; 86317; 86704; 86706; 86850; 86900; 86901; 87070; 87077; 87086; 87088; 87186; 87340; 90935; 93005; 94760; G0008; J0171; J0360; J0744; J0885; J1170; J1644; J1940; J2250; J2405; J2704; J2997; J3010; P9016; Q2035; Q4081

== ENCOUNTER 2019-04-02 09:19 | Day surgery (SDC) | payer MEDICAID ==
--- OUTSIDE RECORDS SUMMARY | 2019-04-02 09:32 | XMS REPORT | Clinical Summary ---
:1960 Author Organization [facility] Address [address] [place] [address] Care Team Providers Name Role Phone Bianca Choudhury Rosemarie Primary Care Provider Allergies Active Allergy Reactions Severity Noted Date Comments Penicillins Hives, Swelling High 02/05/2019 Medications Medication Sig Dispensed Refills Start Date End Date Status amLODIPine (NORVASC) 10 Take 10 mg by 0 Active MG tablet mouth daily. carvedilol (COREG) 25 Take 25 mg by 0 Active MG tablet mouth 2 (two) times daily with breakfast and dinner. cholecalciferol Take 1,000 Units 0 Active (VITAMIN D3) 1,000 unit by mouth daily. tablet furosemide (LASIX) 40 Take 40 mg by 0 Active MG tablet mouth 2 (two) times daily. Active Problems Not on file Encounters Date Type Specialty Care Team Description 02/05/2019 Hospital Encounter Radiology Mitchel Rodriguez No Show MD 02/05/2019 Outside Orders Central Scheduling Mitchel Rodriguez ESRD (end stage renal MD disease) (HCC) (Primary Dx) 02/02/2019 Hospital Encounter Radiology Canceled (Provider) after 04/01/2018 Social History Tobacco Use Types Packs/Day Years Used Date Never Assessed Sex Assigned at Date Recorded Not on file Job Start Date Occupation Industry Not on file Not on file Not on file Travel History Travel Start Travel End No recent travel history available. Last Filed Vital Signs Vital Sign Reading Time Taken Blood Pressure 174/69 02/05/2019 9:15 PM CDT Pulse 82 02/05/2019 9:15 PM CDT Temperature 36.7 C (98.1 F) 02/05/2019 8:05 PM CDT Respiratory Rate 16 02/05/2019 9:15 PM CDT Oxygen Saturation 99% 02/05/2019 9:15 PM CDT Inhaled Oxygen Concentration - - Weight - - Height - - Body Mass Index - - Plan of Treatment Not on file Procedures Procedure Name Priority Date/Time Associated Diagnosis Comments IR CV ACCESS FLUORO Routine 02/05/2019 8:16 PM Results for this CDT procedure are in the results section. after 04/01/2018 Results IR CV Access Fluoro (02/05/2019 8:16 PM CDT) Specimen Narrative Performed At FINAL REPORT [employer] History: Renal failure, need for hemodialysis access. Procedure: Following informed written consent, the patient's right cervical region and anterior chest wall were prepped and draped in the usual sterile manner. Maximum sterile barrier techniques were utilized. 2% lidocaine was given locally for anesthesia. Additionally, the patient was given 1 mg IV Versed and 50 mcg IV fentanyl for conscious sedation and pain control. Vital signs were monitored and remained stable. Conscious sedation and continuous patient monitoring were performed by the attending radiologist and a registered nurse for approximately 25 minutes during the procedure. Access was gained to the right internal jugular vein using ultrasound guidance and a micropuncture needle. A subcutaneous tunnel was created in the anterior chest wall. A 19 cm Duraflow catheter was tunneled and following serial dilatation of the tract, placed through a peel-away sheath and into position within the superior right atrium under fluoroscopic control. The catheter was secured to the skin using 2-0 Prolene suture. The small incision site was closed using 2-0 chromic suture. There were no immediate complications. Findings: Spot radiograph following catheter insertion demonstrates the right internal jugular tunneled dialysis catheter to lie in expected position with its tip in the superior right atrium. No pneumothorax. Ultrasound image of the right internal jugular vein prior to catheter placement shows a patent and compressible vein without evidence for thrombosis. Ultrasound image of the right internal jugular vein was obtained and archived on PACS. Impression: 1. Successful uncomplicated placement of a tunneled right internal jugulardialysis catheter. Fluoroscopy time: 0.3 mins Estimated dose reported as (Ka,r): 8.3 mGy Signed: Cristal Livingston MD Report Verified Date/Time:02/07/2019 17:37:01 Reading Location: [place] [address] Angio Body Reading Room Procedure Note Interface, External Ris In - 02/07/2019 5:39 PM CDT FINAL REPORT History: Renal failure, need for hemodialysis access. Procedure: Following informed written consent, the patient's right cervical region and anterior chest wall were prepped and draped in the usual sterile manner. Maximum sterile barrier techniques were utilized. 2% lidocaine was given locally for anesthesia. Additionally, the patient was given 1 mg IV Versed and 50 mcg IV fentanyl for conscious sedation and pain control. Vital signs were monitored and remained stable. Conscious sedation and continuous patient monitoring were performed by the attending radiologist and a registered nurse for approximately 25 minutes during the procedure. Access was gained to the right internal jugular vein using ultrasound guidance and a micropuncture needle. A subcutaneous tunnel was created in the anterior chest wall. A 19 cm Duraflow catheter was tunneled and following serial dilatation of the tract, placed through a peel-away sheath and into position within the superior right atrium under fluoroscopic control. The catheter was secured to the skin using 2-0 Prolene suture. The small incision site was closed using 2-0 chromic suture. There were no immediate complications. Findings: Spot radiograph following catheter insertion demonstrates the right internal jugular tunneled dialysis catheter to lie in expected position with its tip in the superior right atrium. No pneumothorax. Ultrasound image of the right internal jugular vein prior to catheter placement shows a patent and compressible vein without evidence for thrombosis. Ultrasound image of the right internal jugular vein was obtained and archived on PACS. Impression: 1. Successful uncomplicated placement of a tunneled right internal jugulardialysis catheter. Fluoroscopy time: 0.3 mins Estimated dose reported as (Ka,r): 8.3 mGy Signed: Cristal Livingston MD Report Verified Date/Time: 02/07/2019 17:37:01 Reading Location: [facility] [address] Angio Body Reading Room Performing Organization Address City/State/Zipcode Phone Number [facility] after 04/01/2018 Insurance Payer Benefit Plan / Group Subscriber ID Type Phone Address [place] x[place]
--- OUTSIDE RECORDS SUMMARY | 2019-04-02 09:32 | XMS REPORT ---
:1960 Author Organization [facility] Address [address] [place] [address] Care Team Providers Name Role Phone Unavailable Unavailable Unavailable Problems This patient has no known problems. Allergies, Adverse Reactions, Alerts This patient has no known allergies or adverse reactions. Medications This patient has no known medications. Results Test Description Test Time Test Comments Text Results Atomic Results Result Comments PRECIOUS DUBOSE, FLUORO 2019-02-07 17:37:00 FINAL REPORT History: Renal failure, need for [...] right internal jugulardialysis catheter. Fluoroscopy time: 0.3 minsEstimated dose reported as (Ka,r): 8.3 mGy Signed: Cristal Jo Verified Date/Time: 02/07/2019 17:37:01 Reading Location: [facility] [address]048 Angio Body Reading Room
[2019-04-02] MEDS ORDERED: LIDOCAINE 2% MPF 5 ML VIAL ONE (10:00)
[2019-04-02] MEDS ORDERED: NA CHLORIDE 0.9% 500 ML ONE (10:01)
[2019-04-02] MEDS: MOXIFLOXACIN HCL 10 DROPS/ML **OR USE OPTH ONE ×4 (10:09→11:14)
[2019-04-02] MEDS: CYCLOPENTOLATE 1% OPTH 2 ML ONE ×3 (10:09→10:20)
[2019-04-02] MEDS ORDERED: PHENYLEPHRINE 10% OPTH 5ML OPTH ONE (10:09)
[2019-04-02] MEDS ORDERED: BALANCED SALT IRRIG PLAIN 500 ML BTL IRR ONE (10:15)
[2019-04-02] MEDS ORDERED: DUOVISC 1 KIT OPTH ONE (10:15)
[2019-04-02] MEDS ORDERED: NS 0.9% VIAL 10 ML ONE (10:15)
[2019-04-02] MEDS: PHENYLEPHRINE 10% OPTH 5ML ONE ×2 (10:15→10:20)
[2019-04-02] MEDS ORDERED: EPINEPHRINE/PF 1 MG/ML AMP ONE ×2 (10:15→10:16)
[2019-04-02] MEDS ORDERED: MOXIFLOXACIN HCL 0.5% 3ML OPTH OPTH ONE (10:19)
[2019-04-02] MEDS: TETRACAINE HCL 0.5% 4ML OPTH ONE ×2 (10:34→10:42)
[2019-04-02] MEDS: LIDOCAINE 2% MPF 5 ML VIAL ONE ×2 (10:35→10:43)
[2019-04-02] MEDS: BUPIVACAINE 0.25% PF 10 ML VIAL ONE ×2 (10:35→10:42)
[2019-04-02] MEDS ORDERED: PROPOFOL 200 MG/20 ML VIAL IV ONE (10:41)
[2019-04-02] MEDS ORDERED: FENTANYL CITR 100 MCG/2 ML ONE (11:45)
--- NOTE | 2019-04-02 11:49 | P.BOP ---
Preoperative diagnosis: Nuclear sclerotic and cortical cataract OD Postoperative diagnosis: Same Primary procedure: Phacoemulsification with IOL OD Estimated blood loss: None Anesthesia: Local (Subtenon's infusion with anesthesia for cataract surgery) Complications: None Implants: ZCB00 +21.0 Transferred to: Other (Day surgeyr) Condition: Good
[2019-04-02 13:03] VITALS: BP 135/70; TEMP 97.8; O2SAT 100
--- NOTE | 2019-04-02 22:37 | OP ---
Date of Procedure: 04/02/2019 Surgeon: Verona Franco MD Anesthesiologist: 1. Ramsey Zuñiga CRNA. 2. Negrito Lambert M.D. Preoperative Diagnosis: Nuclear sclerotic cataract, and cortical cataract, right eye. Operation Performed: Phacoemulsification with intraocular lens implant, right eye. Anesthesia: Per cataract surgery. Complications: None. Description Of Procedure: In day surgery, the patient was prepped with Betadine and draped. A conju nctival incision was made in the inferior nasal quadrant with Peyman scissors. A sub-Tenon block c onsisting of a 1:1 mixture of 2% Xylocaine and 0.25% bupivacaine was placed through the conjunctival incision with a blunt cannula. A Honan balloon was placed over the eye and the patient was transferr ed to the operating room. In the operating room the patient was prepped and draped in the usual sterile fashion for ophthalmic surgery. A lid speculum was placed in the right eye. Two paracentesis sites were made superiorly an d inferiorly in the limbal cornea. Viscoat was placed in the anterior chamber and a crescent blade w as used to make a corneal groove and tunnel, and a keratome was used to enter the anterior chamber. Provisc was placed in the anterior chamber and a 360 degree capsulotomy was performed with a cystitom e. The lens was hydrodissected with BSS and rotated freely. The lens was removed with a stop and ch op technique. 4.11 phaco CDE was used to remove the lens. Residual cortex was removed with the irri gation and aspiration. Provisc was placed in the capsular bag. A ZCB00 + 20.0 lens was placed in th e capsular bag without complications. Irrigation and aspiration were used to remove residual viscoel astic. The paracentesis sites were hydrated with BSS. The wound and paracentesis sites were inspect ed and found to be watertight. Vigamox 0.07 cc was placed intracamerally at the end of the procedure . The eye was irrigated with balanced salt solution. The eye was patched with a soft cotton patch a nd Crooks metal shield. The patient was returned to day surgery in good condition. Comments: 1:5000 epinephrine was placed in the anterior chamber prior to Viscoat and throughout the procedure. The lens was hydrodelineated rather than hydrodissected. Discharge Instructions: Ms. Harris is discharged to home in good condition and is to follow up with Dr. Franco in the morning. BEBETO/CHANO Voice ID: [id number] Report ID: [id number]
== END 2019-04-02 12:20 | disposition home or self-care (01) ==
LOC: OR 09:19
PROVIDERS: ATTEND Ophthalmology Retina Specialist
PROC: 08RJ3JZ Replacement of Right Lens with Synthetic Substitute, Percutaneous Approach (ICD-10-PCS; principal; 2019-04-02 10:00)
DX: H25.11 Age-related nuclear cataract, right eye (principal); E11.3513 Type 2 diabetes mellitus with proliferative diabetic retinopathy with macular edema, bilateral; I10 Essential (primary) hypertension; F31.9 Bipolar disorder, unspecified; Z79.899 Other long term (current) drug therapy
CPT/HCPCS: 36415; 82962; 84132; J0171; J2704; J3010

== ENCOUNTER 2019-05-24 16:10 | Emergency (ER) | payer MEDICAID ==
--- OUTSIDE RECORDS SUMMARY | 2019-05-24 16:13 | XMS REPORT ---
:1960 Author Organization [facility] Address [address] [place] [address] Care Team Providers Name Role Phone Unavailable Unavailable Unavailable Problems This patient has no known problems. Allergies, Adverse Reactions, Alerts This patient has no known allergies or adverse reactions. Medications This patient has no known medications. Results Test Description Test Time Test Comments Text Results Atomic Results Result Comments SEDRICK CV CHIQUI, FLUORO 2019-02-07 17:37:00 FINAL REPORT History: Renal [...] Jo Verified Date/Time: 02/07/2019 17:37:01 Reading Location: [facility] P048 Angio Body Reading Room
--- OUTSIDE RECORDS SUMMARY | 2019-05-24 16:13 | XMS REPORT | Clinical Summary ---
:1960 Author Organization [facility] Address [address] [place] [address] Care Team Providers Name Role Phone Bianca [...] 02/02/2019 Hospital Encounter Radiology Canceled (Provider) after 05/23/2018 Social History Tobacco Use Types Packs/Day Years [...] procedure are in the results section. after 05/23/2018 Results IR CV Access Fluoro (02/05/2019 8:16 PM CDT) Specimen Narrative Performed At FINAL REPORT [employer] History: Renal failure, need for hemodialysis access. [...] MD Report Verified Date/Time:02/07/2019 17:37:01 Reading Location: [place] [address] Angio Body Reading Room Procedure Note Interface, External Ris In - 05/01/2019 6:03 PM CDT FINAL REPORT History: Renal failure, [...] Report Verified Date/Time: 02/07/2019 17:37:01 Reading Location: [facility] [address] Angio Body Reading Room Performing Organization Address City/State/Zipcode Phone Number [facility] after 05/23/2018 Insurance Payer Benefit Plan / Group Subscriber ID Type Phone Address [place] xxxxxxxxx
[2019-05-24] MEDS ORDERED: ACETAMINOPHEN 325 MG TABLET ONE (17:21)
[2019-05-24] MEDS ORDERED: IBUPROFEN 400 MG TAB ONE (17:21)
--- NOTE | 2019-05-24 18:09 | RAD REPORT ---
EXAM DESCRIPTION: RAD - Foot Left 3 View - 05/24/2019 5:41 pm CLINICAL HISTORY: Left Foot pain status post fall FINDINGS: No fracture or dislocation is seen. Osteoporosis. Vascular calcifications
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
[2019-05-24 18:43] VITALS: TEMP 97.9
[2019-05-24 18:44] VITALS: BP 181/82; O2SAT 97
== END 2019-05-24 18:37 | disposition home or self-care (01) ==
LOC: ER 16:10
DX: M79.672 Pain in left foot (principal); M79.661 Pain in right lower leg; Z88.0 Allergy status to penicillin; F17.210 Nicotine dependence, cigarettes, uncomplicated
CPT/HCPCS: 99284

== ENCOUNTER 2020-04-28 06:49 | Inpatient (IN) | payer MEDICAID ==
--- OUTSIDE RECORDS SUMMARY | 2020-04-28 06:51 | XMS REPORT ---
:1960 Author Organization [facility] t Address [address] [place] [address] Care Team Providers Name Role Phone Doctor Unassigned, Name Attending Clinician Unavailable Kei COOK, A Attending Clinician Problems This patient has no known problems. Allergies, Adverse Reactions, Alerts This patient has no known allergies or adverse reactions. Medications This patient has no known medications. Procedures This patient has no known procedures. Encounters Start End Encounter Admission Attending Care Care Encounter Source Date/Time Date/Time Type Type Clinicians Facility Department ID 2020-04-10 2020-04-10 [facility] [id number] 00:00:00 00:00:00 Only UnassignedJIM [id number] [place] [facility] [id number] [facility] 2019-08-14 2019-08-14 Refill Choud[place]ury, [facility] [id number] 00:00:00 00:00:00 Bianca Tony [id number] [place] [id number] [facility] [id number] nal [address] [facility] 2019-06-29 2019-06-29 Telephone Kei [facility] [id number] 00:00:00 00:00:00 Bianca Tony [id number] [place] [id number] Profess[facility] [phone] [facility] 231 [facility] Results Test Description Test Time Test Comments Results Result [facility] e Comments PRECIOUS DUBOSE, 2019-02-07 FINAL REPORT PATIENT FLUORO 17:37:00 ID: [id number] History: Renal failure, need for hemodialysis access. [...] as (Ka,r): 8.3 mGy Signed: Cristal Livingston MDReport Verified Date/Time: 02/07/2019 17:37:01 Reading Location: [facility] P048 Angio Body Reading Room
--- OUTSIDE RECORDS SUMMARY | 2020-04-28 06:51 | XMS REPORT | Clinical Summary ---
:1960 Author Organization [facility] Address [address] [place] [address] Care Team Providers Name Role Phone Kei Rosemarie Primary Care Provider Unavailable Allergies Active Allergy Reactions Severity Noted Date [...] times daily. Active Problems Not on file Social History Tobacco Use Types Packs/Day Years Used Date Never Assessed Sex Assigned at Date Recorded Not on file Job Start Date Occupation Industry Not on file Not on file Not on file Travel History Travel Start Travel End No recent travel history available. Last Filed Vital Signs Not on file Plan of Treatment Not on file Results Not on fileafter 04/28/2019 Insurance Payer Benefit Plan / Group Subscriber ID Type Phone A ddress [employer] MED[place]ID [place] xxxxxxxxx [phone]
--- OUTSIDE RECORDS SUMMARY | 2020-04-28 06:52 | XMS REPORT | Summary of Care ---
:1960 Author Organization [facility] Address [address] [place] [id number] Care Team Providers Name Role Phone [place] Medicaid [place] Bianca Choudhury MD Primary Care Provider [phone] Encounter Details Date Type Department Care Team Description 04/10/2020 Orders Only [facility] Doctor Unassigned, No [address] [facility] [place] [address] [address] [place] [id number] Allergies Active Allergy Reactions Severity Noted Date Comments Penicillins Hives 06/14/2016 documented as of this encounter (statuses as of 04/22/2020) Medications Medication Sig Dispensed Refills Start Date End Date Status Blood-Glucose Meter Use as directed. 1 Kit 0 07/16/2016 Active (FREESTYLE SYSTEM KIT) Brand per patient. KitIndications: Type 2 diabetes mellitus with other specified complication lancets (FREESTYLE Once daily for DM 30 Each 5 07/02/2017 Active LANCETS) 28 gauge [facility] II blood sugar diagnostic Test blood sugars 30 Strip 5 7 Active (FREESTYLE INSULINX daily for TEST STRIPS) strip diabetes, Please give patient any brand of testing supplies she wants ERGOCALCIFEROL, Take by mouth. 0 Active VITAMIN D2, (VITAMIN D ORAL) Diclofenac Sodium Take 2-4 grams 100 g 3 01/18/2019 Active (VOLTAREN) 1 % twice a day as gelIndications: needed for pain Chronic right shoulder pain, Left leg pain AMLODIPINE 10 mg TAKE 1 TABLET BY 30 tablet 11 08/14/2019 Active tabletIndications: MOUTH ONCE DAILY Essential hypertension CARVEDILOL 25 mg TAKE 1 TABLET BY 60 tablet 11 09/03/2019 Active tabletIndications: MOUTH TWICE DAILY ACC/AHA stage B WITH MEALS congestive heart failure, Essential hypertension documented as of this encounter (statuses as of 04/22/2020) Active Problems Problem Noted Date Arteriovenous fistula stenosis, subsequent encounter 1 11/28/2016 Overview: Added automatically from request for min foy [id number] Obesity (BMI 30-39.9) 08/02/2017 ESRD needing dialysis 07/18/2017 Overview: Added automatically from request for mni foy [id number] Elevated serum lactate dehydrogenase 02/11/2017 Essential hypertension 09/03/2016 Type 2 diabetes mellitus with other specified complica tion 07/16/2016 ACC/AHA stage B congestive heart failure 07/07/2016 Chronic diastolic heart failure 07/07/2016 MOE (dyspnea on exertion) 07/07/2016 Edema of both legs 06/21/2016 HTN (hypertension) 06/14/2016 Bipolar 1 disorder documented as of this encounter (statuses as of 04/22/2020) Resolved Problems Problem Noted Date Resolved Date Acute kidney injury (nontraumatic) 06/14/201607/16 UTI (urinary tract infection) 06/14/2016 07/16/2016 DM (diabetes mellitus) 06/14/2016 07/16/2016 documented as of this encounter (statuses as of 04/22/2020) Immunizations Name Administration Dates Next Due Influenza Virus Vaccine Quad ID [id number] 09/04/2018 Pneumococcal Polysaccharide, PPSV23 (PNEUMOVAX) 02/15/2017 documented as of this encounter Social History Tobacco Use Types Packs/Day Years Used Date Current Every Day Smoker 0.5 30 Smokeless Tobacco: Never Used Alcohol Use Drinks/Week oz/Week Comments Yes beer during the week to sleep Sex Assigned at Date Recorded Not on file Job Start Date Occupation Industry Not on file Not on file Not on file Travel History Travel Start Travel End No recent travel history available. documented as of this encounter Last Filed Vital Signs Not on filedocumented in this encounter Plan of Treatment Health Maintenance Due Date Last Done Comments DTaP,Tdap,and Td Vaccines (1 - 1970 Tdap) FOOT EXAM 1977 PAP SMEAR 1980 Breast Cancer Screening 1999 (MAMMOGRAM) COLONOSCOPY 2009 Zoster Recombinant Vaccine 2009 (SHINGRIX) (1 of 2) LUNG CANCER SCREEN: Recommended 2014 for age 55-80 with 30 + pack year history LDL-C 06/15/2017 06/15/2016 HgA1C 03/05/2019 09/04/2018, 05/22/2018, 11/24/2017, Additional history exists EYE EXAM 12/26/2019 12/26/2018 CREATININE (SERUM) 01/30/2020 01/29/2019, 01/18/2019, 10/07/2017, Additional history exists INFLUENZA VACCINE (Season Ended) 2020 PNEUMOCOCCAL 0-64 YEARS COMBINED Completed 02/15/2017 SERIES HEPATITIS C (HCV) SCREEN Completed 01/29/2019, 01/18/2019 documented as of this encounter Implants Implanted Type Area Charge Nurse Device Shelf Model / Identifier Expiration Serial / Date Lot Xenosure Biological Patch PATCH Left: Arm [employer] 03/25/2023 [id number] / Implanted: Qty: 1 on 10/07/2017 by Leonard Echeverria MD at [facility] [id number] / [id number] documented as of this encounter Procedures Procedure Name Priority Date/Time Associated Diagnosis Comme nts REFERRAL- Routine 04/10/2020 12:01 AM CDT REQUEST/RESPONSE documented in this encounter Results Not on filedocumented in this encounter Insurance Payer Benefit Plan / Subscriber ID Effective Phone Address T [facility] Group Dates UNIQUE CALHOUN xxxxxxxxx 2011-[address] [employer] [place] [id number] MANAGED MEDICAID [place] documented as of this encounter
[2020-04-28] MEDS ORDERED: ALBUTEROL 2.5 MG/3 ML NEB SOL ONE (07:02)
[2020-04-28] MEDS ORDERED: FUROSEMIDE 20 MG/ 2ML VIAL ONE (07:02)
[2020-04-28] MEDS ORDERED: MORPHINE 4 MG/ML SYR ONE (07:02)
[2020-04-28 07:23] LABS: Absolute Lymphocytes (CBC) 1.8 K/uL (0.7-4.9); Basophils % 0.8 % (0-1.3); Hematocrit 34.3 % (36.0-45.0); Lymphocytes % 21.8 % (15.3-44.8); MPV 8.2 fL (7.6-11.3); RBC Red Blood Cell Count 3.58 M/uL (3.86-4.86)
[2020-04-28 07:25] LABS: Urine Blood TRACE (NEG); Urine Glucose TRACE (NEG); Urine Protein 3+ (NEG); Urine pH >8.5 (5.0-7.0)
[2020-04-28 07:34] LABS: Protime INR 0.99
[2020-04-28 07:35] LABS: Arterial Blood Carboxyhemoglob 3.7 % (0-1.5); Blood O2 Saturation 87.4 % (92-98.5)
[2020-04-28 07:48] LABS: ALT/SGPT 18 U/L (12-78); AST/SGOT 39 U/L (15-37); Albumin 3.1 g/dL (3.4-5.0); Alkaline Phosphatase 79 U/L (45-117); BUN Blood Urea Nitrogen 52 mg/dL (7-18); Bicarbonate 25 mmol/L (21-32); Bilirubin Direct 0.2 mg/dL (0-0.2); Bilirubin Total 0.5 mg/dL (0.2-1.0); Glucose Level 92 mg/dL (74-106); Magnesium 2.4 mg/dL (1.8-2.4); NT PRO-BNP 28339 pg/mL (<125); Phosphorus 5.3 mg/dL (2.5-4.9); Potassium 4.8 mmol/L (3.5-5.1); Protein, Total 8.1 g/dL (6.4-8.2); Sodium Level 137 mmol/L (136-145); Troponin (Emerg Dept Use Only) < 0.02 ng/mL (0.0-0.045)
--- NOTE | 2020-04-28 08:49 | RAD REPORT ---
EXAM DESCRIPTION: RAD - Chest Single View - 04/28/2020 8:40 am CLINICAL HISTORY: Chest pain;Dyspnea COMPARISON: Portable chest January 2019 TECHNIQUE: AP portable chest image was obtained 04/28/2020 8:40 am . FINDINGS: Double-lumen dialysis catheter has been placed since prior imaging. Interstitial markings are increased only partly due to shallow inspiration. Heart size is upper normal. Vascular engorgemen t is present. Bilateral pleural effusions are evident. No pneumothorax. No acute bony abnormality see n. No acute aortic findings suspected. IMPRESSION: Moderate CHF/ volume overload pattern.
[2020-04-28 11:22] VITALS: BMI 28.3
[2020-04-28] MEDS ORDERED: ACETAMINOPHEN 500 MG TAB PO PRN (11:22)
[2020-04-28] MEDS ORDERED: ONDANSETRON 4 MG/2 ML VIAL IV PRN (11:22)
[2020-04-28] MEDS ORDERED: MANNITOL 25% 12.5 GM/50 ML VIAL IV PRN (11:22)
[2020-04-28] MEDS ORDERED: ALBUMIN HUMAN 25% 50 ML IV SCH (11:22)
[2020-04-28] MEDS ORDERED: NA CHLORIDE 0.9% 1,000 ML IV PRN (11:22)
[2020-04-28] MEDS: INSULIN -REGULAR HUMAN 50 UNIT/0.5 ML ML SQ SCH ×3 (11:30→21:00)
[2020-04-28] MEDS: carvediloL 25 MG TAB PO SCH (18:06)
[2020-04-28] MEDS ORDERED: HYDRALAZINE HCL 20 MG/ML VIAL IV PRN (18:33)
--- NOTE | 2020-04-28 19:49 | EDPHYS ---
Physician Documentation [facility] Name: Dennise Harris Age: 59 yrs Sex: Female : 1960 Arrival Date: 04/28/2020 Time: 06:51 Bed 3 Private MD: ED Physician Isiah Sheth HPI: 04/28 06:58 This 59 yrs old Black Female presents to ER via Unassigned with complaints of sob, snw chest pain. 06:58 The patient has shortness of breath at rest. Onset: The symptoms/episode began/occurred snw suddenly. Duration: The symptoms are continuous. Associated signs and symptoms: Pertinent positives: chest pain, non-productive cough. Severity of symptoms: At their worst the symptoms were moderate severe in the emergency department the symptoms are unchanged. It is unknown whether or not the patient has had similar symptoms in the past. dialysis on Tuesday. hx COPD, Dialysis, Allergic to PCN. Historical: - Allergies: 09:36 PENICILLINS; em - PMHx: 09:36 HD - Tue//Tue; em - PSHx: 09:36 Knee surgery; Tonsillectomy; Appendectomy; em ROS: 06:57 Eyes: Negative for injury, pain, redness, and discharge, ENT: Negative for injury, snw pain, and discharge, Neck: Negative for injury, pain, and swelling, Cardiovascular: Negative for chest pain, palpitations, and edema. 06:57 Abdomen/GI: Negative for abdominal pain, nausea, vomiting, diarrhea, and constipation, Back: Negative for injury and pain, : Negative for injury, bleeding, discharge, and swelling, MS/Extremity: Negative for injury and deformity, Skin: Negative for injury, rash, and discoloration, Neuro: Negative for headache, weakness, numbness, tingling, and seizure, Psych: Negative for depression, anxiety, suicide ideation, homicidal ideation, and hallucinations. 06:57 Constitutional: Positive for body aches, malaise. 06:57 Respiratory: Positive for cough, orthopnea, shortness of breath, at rest. Exam: 06:55 Eyes: Pupils equal round and reactive to light, extra-ocular motions intact. Lids and snw lashes normal. Conjunctiva and sclera are non-icteric and not injected. Cornea within normal limits. Periorbital areas with no swelling, redness, or edema. ENT: Nares patent. No nasal discharge, no septal abnormalities noted. Tympanic membranes are normal and external auditory canals are clear. Oropharynx with no redness, swelling, or masses, exudates, or evidence of obstruction, uvula midline. Mucous membranes moist. Neck: Trachea midline, no thyromegaly or masses palpated, and no cervical lymphadenopathy. Supple, full range of motion without nuchal rigidity, or vertebral point tenderness. No Meningismus. Chest/axilla: Normal chest wall appearance and motion. Nontender with no deformity. No lesions are appreciated. Cardiovascular: Regular rate and rhythm with a normal S1 and S2. No gallops, murmurs, or rubs. Normal PMI, no JVD. No pulse deficits. 06:55 Back: No spinal tenderness. No costovertebral tenderness. Full range of motion. Skin: Warm, dry with normal turgor. Normal color with no rashes, no lesions, and no evidence of cellulitis. MS/ Extremity: Pulses equal, no cyanosis. Neurovascular intact. Full, normal range of motion. Neuro: Awake and alert, GCS 15, oriented to person, place, time, and situation. Cranial nerves II-XII grossly intact. Motor strength 5/5 in all extremities. Sensory grossly intact. Cerebellar exam normal. Normal gait. 06:55 Constitutional: The patient appears awake, anxious, frail, obese, in obvious distress, moderately distressed, uncomfortable. 06:55 Head/face: Noted is swelling, that is moderate, of the right eye and left eye. 06:55 Respiratory: mild respiratory distress is noted, moderate respiratory distress is noted, Respirations: labored breathing, that is moderate, Breath sounds: rales, that are moderate, are heard diffusely, rhonchi, are heard diffusely. 06:55 Abdomen/GI: Inspection: distension, that is moderate, Bowel sounds: normal, Palpation: abdomen is soft and non-tender. 06:55 Psych: Behavior/mood is cooperative, anxious. Vital Signs: 07:03 BP 184 / 99; Pulse 87; Resp 28; Temp 99.1; Pulse Ox 91% ; Weight 81.65 kg; Height 5 ft. ea 2 in. (157.48 cm); 07:15 BP 185 / 91; Pulse 81; Resp 22; Pulse Ox 96% on BiPAP; em 08:17 BP 172 / 86; Pulse 82; Resp 18; Pulse Ox 92% on BiPAP; em 09:35 BP 167 / 99; Pulse 78; Resp 16; Pulse Ox 96% on BiPAP; em 07:03 Body Mass Index 32.92 (81.65 kg, 157.48 cm) MDM: 07:00 Patient medically screened. snw 08:55 Data reviewed: vital signs, nurses notes. Data interpreted: Pulse oximetry: on BiPap is snw 92 %. Interpretation: hypoxia. Plan: O2 by Mask applied. Counseling: I had a detailed discussion with the patient and/or guardian regarding: the historical points, exam findings, and any diagnostic results supporting the discharge/admit diagnosis, the presence of at least one elevated blood pressure reading (>120/80) during this emergency department visit, lab results, radiology results, the need for further work-up and treatment in the hospital. Response to treatment: the patient's symptoms have markedly improved after treatment. Physician consultation: Rustam Antonio MD was called at 08:56, was contacted at 08:56, regarding admission, to the telemetry unit. 04/28 06:53 Order name: Blood Culture Adult (2) 04/28 06:53 Order name: ABG 04/28 06:54 Order name: Basic Metabolic Panel; Complete Time: 08:23 snw 04/28 06:54 Order name: CBC with Diff; Complete Time: 07:32 snw 04/28 06:54 Order name: Hepatic Function; Complete Time: 08:23 snw 04/28 06:54 Order name: Magnesium; Complete Time: 08:23 snw 04/28 06:53 Order name: BIPAP 04/28 06:54 Order name: NT PRO-BNP; Complete Time: 08:23 snw 04/28 06:54 Order name: Protime (+inr); Complete Time: 07:42 snw 04/28 06:54 Order name: Troponin (emerg Dept Use Only); Complete Time: 08:23 snw 04/28 06:54 Order name: XRAY Chest (1 view); Complete Time: 08:50 snw 04/28 06:54 Order name: Phosphorus; Complete Time: 08:23 snw 04/28 07:16 Order name: Urine Dipstick--Ancillary (enter results); Complete Time: 07:32 bd 04/28 06:53 Order name: Redd; Complete Time: 08:13 ea 04/28 06:54 Order name: EKG; Complete Time: 06:56 snw 04/28 06:54 Order name: Cardiac monitoring; Complete Time: 07:01 snw 04/28 06:54 Order name: EKG - Nurse/Tech; Complete Time: 07:01 snw 04/28 06:54 Order name: IV Saline Lock; Complete Time: 07:01 snw 04/28 06:54 Order name: Labs collected and sent; Complete Time: 07:01 snw 04/28 06:54 Order name: O2 Per Protocol; Complete Time: 07:01 snw 04/28 06:54 Order name: O2 Sat Monitoring; Complete Time: 07:01 snw 04/28 07:13 Order name: Misc. Order: turn O2 down to keep sats about 90%; Complete Time: 08:13 snw Administered Medications: 07:00 Drug: Lasix 20 mg Route: IVP; Site: left antecubital; ea 08:13 Follow up: Response: No adverse reaction em 07:01 Drug: Albuterol 1.25 mg Route: Inhalation; ea 08:14 Follow up: Response: No adverse reaction; Marked relief of symptoms em 07:02 Drug: morphine 4 mg {Note: RASS 0.} Route: IVP; Site: left antecubital; ea 08:13 Follow up: Response: No adverse reaction em Disposition: 15:13 Co-signature as Attending Physician, Isiah Sheth MD I agree with the assessment and kdr plan of care. Disposition: 04/28/20 08:55 Hospitalization ordered by Rustam Antonio for Inpatient Admission. Preliminary diagnosis are Hypoxemia, Unspecified diastolic (congestive) heart failure. - Bed requested for Telemetry/MedSurg (Inpatient). - Status is Inpatient Admission. em - Condition is Stable. - Problem is an acute exacerbation. - Symptoms have worsened. Signatures: Dispatcher [employer] EDJanee Hernandez Kevin, MD MD kdr Therrien, Shelly, ORACLE HRMS DEVELOPER-C ORACLE HRMS DEVELOPER-Csnw Jamil Benavides, RN RN em Yvonne Mitchell RN RN ea Corrections: (The following items were deleted from the chart) 10:03 08:55 Hospitalization Ordered by Rustam Antonio MD for Inpatient Admission. Preliminary bd diagnosis is Hypoxemia; Unspecified diastolic (congestive) heart failure. Bed requested for Telemetry/MedSurg (Inpatient). Status is Inpatient Admission. Condition is Stable. Problem is an acute exacerbation. Symptoms have worsened. snw 10:42 10:03 04/28/2020 08:55 Hospitalization Ordered by Rustam Antonio MD for Inpatient em Admission. Preliminary diagnosis is Hypoxemia; Unspecified diastolic (congestive) heart failure. Bed requested for Telemetry/MedSurg (Inpatient). Status is Inpatient Admission. Condition is Stable. Problem is an acute exacerbation. Symptoms have worsened. bd
--- NOTE | 2020-04-28 19:49 | ER ---
Nurse's Notes [facility] Name: Dennise Harris Age: 59 yrs Sex: Female : 1960 Arrival Date: 04/28/2020 Time: 06:51 Bed 3 Private MD: Diagnosis: Hypoxemia;Unspecified diastolic (congestive) heart failure Presentation: 04/28 07:03 Chief complaint: Patient states: Pt complaining of SOB that started at 0600. EMS ea reports O2 at 85% room air, pt reported last dialysis was done Tuesday. Coronavirus screen: Proceed with normal triage. Ebola Screen: No symptoms or risks identified at this time. Initial Sepsis Screen: Does the patient meet any 2 criteria? Yes Does the patient have a suspected source of infection? No. Patient's initial sepsis screen is negative. Risk Assessment: Do you want to hurt yourself or someone else? Patient reports no desire to harm self or others. Onset of symptoms was April 28, 2020. 07:03 Method Of Arrival: EMS: [facility] ea 07:03 Acuity: FAWAD 3 ea Triage Assessment: 07:07 Respiratory: the patient has moderate shortness of breath. ea 07:08 General: Appears uncomfortable, Behavior is restless. Pain: Complains of pain in chest. ea Respiratory: Reports shortness of breath Patient placed on BiPAP: Onset: The symptoms/episode began/occurred this morning. Historical: - Allergies: 09:36 PENICILLINS; em - PMHx: 09:36 HD - Tue/Th/Sat; em - PSHx: 09:36 Knee surgery; Tonsillectomy; Appendectomy; em Screenin:07 Abuse screen: Denies threats or abuse. Nutritional screening: No deficits noted. ea Tuberculosis screening: No symptoms or risk factors identified. Fall Risk None identified. Assessment: 07:30 General: Appears in no apparent distress. uncomfortable, Behavior is cooperative, em Denies fever. Pain: Complains of pain in chest Pain currently is 8 out of 10 on a pain scale. Neuro: Level of Consciousness is awake, alert, obeys commands, Oriented to person, place, time, situation, Appropriate for age. Cardiovascular: Reports chest pain, Capillary refill < 3 seconds Patient's skin is warm and dry. Rhythm is sinus rhythm. Respiratory: Reports shortness of breath at rest labored breathing Airway is patent Respiratory effort is even, unlabored, Respiratory pattern is regular, symmetrical, Breath sounds are diminished bilaterally. GI: Abdomen is round non-distended. Derm: Skin is intact, is healthy with good turgor, Skin is pink, warm \T\ dry. Musculoskeletal: Capillary refill < 3 seconds, Range of motion: intact in all extremities. 08:17 Reassessment: Patient and/or family updated on plan of care and expected duration. Pain em level reassessed. Patient is alert, oriented x 3, equal unlabored respirations, skin warm/dry/pink. Patient states feeling better. Patient states symptoms have improved. 08:25 Reassessment: Patient appears in no apparent distress at this time. x-ray at bedside. em 09:35 Reassessment: Patient appears in no apparent distress at this time. Patient and/or em family updated on plan of care and expected duration. Pain level reassessed. Patient is alert, oriented x 3, equal unlabored respirations, skin warm/dry/pink. Vital Signs: 07:03 BP 184 / 99; Pulse 87; Resp 28; Temp 99.1; Pulse Ox 91% ; Weight 81.65 kg; Height 5 ft. ea 2 in. (157.48 cm); 07:15 BP 185 / 91; Pulse 81; Resp 22; Pulse Ox 96% on BiPAP; em 08:17 BP 172 / 86; Pulse 82; Resp 18; Pulse Ox 92% on BiPAP; em 09:35 BP 167 / 99; Pulse 78; Resp 16; Pulse Ox 96% on BiPAP; em 07:03 Body Mass Index 32.92 (81.65 kg, 157.48 cm) ea ED Course: 06:50 Maintain EMS IV. Dressing intact. Good blood return noted. Site clean \T\ dry. Gauge \T\ mg 2 site: 20 \T\ LFA'. 06:51 Patient arrived in ED. ea 06:53 [facility] snw 06:53 Isiah Sheth MD is Attending Physician. snw 07:05 Inserted saline lock: 20 gauge in right forearm, using aseptic technique. Blood mg2 collected. 07:07 Triage completed. ea 07:07 Patient has correct armband on for positive identification. Bed in low position. Call ea light in reach. Side rails up X 1. 07:08 Arm band placed on right wrist. Patient placed in an exam room, on a stretcher, on ea pulse oximetry. 07:12 No provider procedures requiring assistance completed. mg2 07:12 Redd cath inserted, using sterile technique, 16 Fr., by me, balloon inflated, urine mg2 specimen collected. 20 ml. 07:15 Jamil Benavides, RN is Primary Nurse. em 08:41 XRAY Chest (1 view) In Process Unspecified. EDMS 08:54 Rustam Antonio MD is Hospitalizing Provider. snw 10:22 Patient admitted, IV remains in place. em Administered Medications: 07:00 Drug: Lasix 20 mg Route: IVP; Site: left antecubital; ea 08:13 Follow up: Response: No adverse reaction em 07:01 Drug: Albuterol 1.25 mg Route: Inhalation; ea 08:14 Follow up: Response: No adverse reaction; Marked relief of symptoms em 07:02 Drug: morphine 4 mg {Note: RASS 0.} Route: IVP; Site: left antecubital; ea 08:13 Follow up: Response: No adverse reaction em Outcome: 08:55 Decision to Hospitalize by Provider. snw 10:21 Admitted to Med/surg accompanied by tech, via stretcher, room 210, Report called to sang Lagunas RN 10:21 Condition: good 10:21 Instructed on the need for admit, Demonstrated understanding of instructions. 10:42 Patient left the ED. em Signatures: Dispatcher [employer] EDNV Amy Dumont, NAIL MACHINE OPERATOR-C NAIL MACHINE OPERATOR-Csnw Jamil Benavides, RN RN Yvonne Phelps RN RN ea Gardose, Michele RN RN mg2
--- NOTE | 2020-04-28 21:25 | HP ---
Date of Admission: 04/28/2020 Primary Care Physician: Dr. Berry. Consultants: Dr. Berry with Nephrology. Chief Complaint: Shortness of breath. History Of Present Illness: Patient is a 59-year-old female with past medical history of end-stage r enal disease, on hemodialysis, diabetes, hyperlipidemia, depression, comes in for worsening shortness of breath, which has been ongoing for the past 2-3 days. Patient was started on empiric antibiotics by her straddle bug for upper respiratory tract type symptoms. Patient has not had much improvement . Her dialysis days are Tuesday, , Tuesday. Last dialysis was on Tuesday. Patient does r eport some overall swelling and anasarca and worsening shortness of breath. Denies any fevers, chill s. Does have dry cough. Patient's symptoms are constant, moderate, progressively worsening. In the ER, her workup revealed normal WBC count. BNP was 28,000. UA showed negative nitrite, 1+ leukocyte esterase. Chest x-ray showed moderate CHF, volume overload pattern. Patient was then referred for admission. When seen in the ER, she was awake, alert, oriented x3, in some mild respiratory distress . Past Medical History: End-stage renal disease on hemodialysis, diabetes mellitus type 2, diabetic ga stroparesis, hyperlipidemia, and depression chronic kidney disease. Surgical History: Left arm AV fistula graft with subsequent reversal, knee surgery, tonsillectomy an d appendectomy. Allergies: TO PENICILLIN, WHICH CAUSES HIVES. Medications: List reviewed. Social History: Patient smokes half a pack of cigarettes per day. Has been smoking for multiple dec ades. Drinks alcohol on a fairly regular basis including beer and Smirnoff. No illicit drug use. Maria Antonia harkins has good social support. Daughter works at the hospital. Patient is independent in her activ ities of daily living. Family History: Positive for diabetes. Review of Systems: Ten-point system reviewed, negative except as per HPI. Physical Examination: Vital Signs: Temperature 99.1, heart rate 87, blood pressure 184/99, respirations 28, O2 91% on 2 L via nasal cannula. General: Awake, alert oriented x3, obese female slightly, in some mild distress, ill-appearing. HEENT: Normocephalic, atraumatic. PERRLA, EOMI. Conjunctivae anicteric. Neck: Supple. No JVD. Trachea midline. CV: S1, S2. Peripheral pulses present. No murmurs. Regular rate and rhythm. Respiratory: Diminished breath sounds, rhonchi heard throughout. No wheezing or stridor. Patient i s some tachypneic. No use of accessory muscles. Gastrointestinal: Abdomen is soft, nontender, nondistended. Positive bowel sounds. No guarding or rigidity. Extremities: No clubbing or cyanosis. Patient has pedal edema. No calf tenderness. Neuro: Cranial nerves 2 through 12 intact grossly. No focal neurological deficit. Speech is normal . Skin: No rashes. Normal skin turgor. Laboratory Data: Sodium 137, potassium 4.8, chloride 101, CO2 of 25, BUN 52, creatinine 6.8, glucose 92, calcium 8.9, phosphorus 5.3, magnesium 2.4. Troponin less than 0.02. BNP 20,339. Albumin 3.1. WBC 8.2, H and H 11.3 and 34.3. INR 0.99. ABG; pH 7.41, pCO2 43, PO2 58.8, bicarb 26. UA, trace blood, negative nitrite, 1+ leukocyte esterase. Microscopy pending. Chest x-ray shows moderate CHF, volume overload pattern. Assessment And Plan: 59-year-old female with 1.Acute respiratory distress with hypoxia. ABG shows hypoxemia with PO2 of 58. Patient is on 2 L v ia nasal cannula, was initially on BiPAP secondary to volume overload and anasarca. 2.Anasarca, likely due to volume overload from her end-stage renal disease. Continue supplemental. We will continue dialysis. 3.End-stage renal disease, on hemodialysis. Patient's next dialysis day is tomorrow. Will need to be dialyzed today in the hospital setting. Dr. Berry has been informed. Continue to monitor elect rolytes. 4.Diabetes mellitus, type 2 [id number] with end-stage renal disease, diabetic gastropares is. We will continue sliding scale insulin. Monitor blood glucose levels. 5.Anemia of chronic disease. Monitor H and H and transfuse as needed. 6.Mixed hyperlipidemia, stable. We will continue home medications. 7.Major depressive disorder, single episode, currently in remission. 8.Deep venous thrombosis prophylaxis with heparin renally dosed. Plan: Admit patient to Med-Surg, place as inpatient. Length of stay greater than 2 midnights. LALITHA Voice ID: [id number]
[2020-04-28] MEDS: HEPARIN 5000 UNIT/ML 1 ML VIAL SQ SCH (21:44)
--- NOTE | 2020-04-28 22:21 | P.CNS ---
Date of Consult: 04/28/20 Reason for Consult: ESRD Requesting Physician: Rustam Antonio Chief Complaint: Dyspnea History of Present Illness: 59 yo BF CKD, DM presented to the ER with 2-3 days of moderate, progressive dyspnea in the setting of CHF. Seen and examined in the ER while on Bipap. Patient is a 59-year-old female with past medical history of end-stage renal disease, on hemodialysis, diabetes, hyperlipidemia, depression, comes in for worsening shortness of breath, which has been ongoing for the past 2-3 days. Patient was started on empiric antibiotics by her nail technician for upper respiratory tract type symptoms. Patient has not had much improvement. Her dialysis days are Tuesday, , Tuesday. Last dialysis was on Tuesday. Patient does report some overall swelling and anasarca and worsening shortness of breath. Denies any fevers, chills. Does have dry cough. Patient's symptoms are constant, moderate, progressively worsening. In the ER, her workup revealed normal WBC count. BNP was 28,000. UA showed negative nitrite, 1+ leukocyte esterase. Chest x-ray showed moderate CHF, volume overload pattern. 06:58 This 59 yrs old Black Female presents to ER via Unassigned with complaints of sob, snw chest pain. 06:58 The patient has shortness of breath at rest. Onset: The symptoms/episode began/occurred snw suddenly. Duration: The symptoms are continuous. Associated signs and symptoms: Pertinent positives: chest pain, non-productive cough. Severity of symptoms: At their worst the symptoms were moderate severe in the emergency department the symptoms are unchanged. It is unknown whether or not the patient has had similar symptoms in the past. dialysis on Tuesday. Allergies Penicillins Adverse Reaction (Mild, Verified 03/30/19 11:43) SWELLING Home medications list reviewed: Yes Home Medications: Amlodipine [Norvasc*] 10 mg PO [id number] 01/30/19 carvediloL [Coreg*] 25 mg PO BID 01/30/19 ramipriL [Altace*] 10 mg PO BEDTIME #60 cap 04/29/20 - Past Medical/Surgical History Diabetic: Yes -: kidney issues -: HTN -: NIDDM -: Bladder issues -: Cataracts -: knee sx -: stunt placement in arm - Family History Mother Medical History: Hypertension, Diabetes, Kidney disease - Social History Smoking Status: Current every day smoker Alcohol use: Yes CD- Drugs: No Caffeine use: Yes Place of Residence: Home Review of Systems 10-point ROS is otherwise unremarkable General: Weakness, Malaise Respiratory: SOB with Excertion Cardiovascular: Edema Neurological: Weakness Physical Examination Temp Pulse Resp BP Pulse Ox 97.9 F 88 18 191/86 H 93 04/28/20 20:00 04/28/20 20:00 04/28/20 20:00 04/28/20 20:00 04/28/20 20:00 General: Oriented x3, Cooperative, Moderate distress HEENT: Atraumatic, Mucous membr. moist/pink Neck: Supple, JVD distended Respiratory: Diminished Cardiovascular: Regular rate/rhythm, Edema Gastrointestinal: Soft and benign, Non-distended Musculoskeletal: No clubbing, No contractures Integumentary: No rashes, No cyanosis Neurological: Normal speech Laboratory Data (last 24 hrs) 04/28/20 06:50: PT 11.7, INR 0.99 04/28/20 06:50: WBC 8.2, Hgb 11.3 L, Hct 34.3 L, Plt Count 228 04/28/20 06:50: Sodium 137, Potassium 4.8, BUN 52 H, Creatinine 6.80 H*, Glucose 92, Phosphorus 5.3 H, Magnesium 2.4, Total Bilirubin 0.5, AST 39 H, ALT 18, Al kaline Phosphatase 79 Imagings Data: EXAM DESCRIPTION: RAD - Chest Single View - 04/28/2020 8:40 am CLINICAL HISTORY: Chest pain;Dyspnea COMPARISON: Portable chest January 2019 TECHNIQUE: AP portable chest image was obtained 04/28/2020 8:40 am . FINDINGS: Double-lumen dialysis catheter has been placed since prior imaging. Interstitial markings are increased only partly due to shallow inspiration. Heart size is upper normal. Vascular engorgement is present. Bilateral pleural effusions are evident. No pneumothorax. No acute bony abnormality seen. No acute aortic findings suspected. IMPRESSION: Moderate CHF/ volume overload pattern. Conclusions/Impression: A/ ESRD on HD. Acute hypoxic respiratory failure. Diastolic CHF, A/C. HTN with CKD/ CHF. DM II with CKD. Anemia in CKD. JUANITO/ Secondary HyperPTH. P/ Continue current POC and Medications. Arrange for acute HD. Continue Bipap therapy due to severe dyspnea. Restart home medications as indicated. Retacrit PRN. Low sodium diet. No NSAIDs. AM labs. Daily weight. Thank you kindly for the consultation. Critical Care: Yes (>30min)
[2020-04-28] MEDS: ramipriL 5 MG CAP PO SCH (23:15)
[2020-04-29] MEDS: HYDRALAZINE HCL 20 MG/ML VIAL IV PRN ×2 (03:20→16:40)
[2020-04-29] MEDS ORDERED: AMLODIPINE 10 MG TAB PO SCH (06:00)
[2020-04-29 06:31] LABS: Absolute Lymphocytes (CBC) 1.5 K/uL (0.7-4.9); Basophils % 0.8 % (0-1.3); Hematocrit 33.6 % (36.0-45.0); Lymphocytes % 27.7 % (15.3-44.8)
[2020-04-29 06:58] LABS: Albumin 2.8 g/dL (3.4-5.0); Bilirubin Total 0.5 mg/dL (0.2-1.0); Magnesium 2.2 mg/dL (1.8-2.4); Phosphorus 4.9 mg/dL (2.5-4.9); Potassium 4.5 mmol/L (3.5-5.1); Protein, Total 7.7 g/dL (6.4-8.2)
[2020-04-29] MEDS: INSULIN -REGULAR HUMAN 50 UNIT/0.5 ML ML SQ SCH ×4 (07:30→21:00)
[2020-04-29] MEDS: carvediloL 25 MG TAB PO SCH ×2 (08:49→21:09)
[2020-04-29] MEDS: HEPARIN 5000 UNIT/ML 1 ML VIAL SQ SCH ×2 (08:49→21:09)
[2020-04-29 09:06] VITALS: O2SAT 95
--- NOTE | 2020-04-29 13:49 | P.DS ---
Admission Date: 04/28/20 Discharge Date: 04/29/20 Primary Care Provider: Dr. Berry Disposition: ROUTINE DISCHARGE Discharge Condition: GOOD Reason for Admission: Dyspnea Consultations: Nephrology-Dr. Berry Cardiology-Dr. Bill Procedures: CXR: FINDINGS: Double-lumen dialysis catheter has been placed since prior imaging. Interstitial markings are increased only partly due to shallow inspiration. Heart size is upper normal. Vascular engorgement is present. Bilateral pleural effusions are evident. No pneumothorax. No acute bony abnormality seen. No acute aortic findings suspected. IMPRESSION: Moderate CHF/ volume overload pattern. Medical Problem list: Acute respiratory distress with hypoxia secondary to acute on chronic diastolic CHF complicated with end-stage renal disease on hemodialysis HTN Anemia of chronic disease Brief History of Present Illness: 59-year-old female presented to the emergency room which shortness of breath. Patient with history of end-stage renal disease on hemodialysis, hypertension. This had been ongoing for about 2-3 days. Patient evaluated in the emergency room. Patient found to have volume overload on chest x-ray. Patient was admitted for further evaluation and treatment. Patient initially required BiPAP in the emergency room. Hospital Course: Patient presented with acute respiratory distress with hypoxia secondary to acute on chronic diastolic CHF complicated with end-stage renal disease on hemodialysis. Patient initially required BiPAP. Patient did get dialysis during the course of her stay. Fluid restriction was enforced. The patient has done well. At discharge she is not requiring any oxygen. Patient without significant shortness of breath. Echocardiogram obtained. Patient seen by nephrology and cardiology. Cardiology recommends no further evaluation at this time. At discharge patient will continue with a 1500 cc per day fluid restriction and low-salt diet. Recommend to monitor her weight daily. If her weight increases by more than 5 lb she is to contact nephrology or cardiology for further evaluation. Recommend follow up with cardiology in 1-2 weeks to follow up this hospitalization. Patient with underlying end-stage renal disease on hemodialysis. Patient received dialysis with improvement of symptoms. At discharge she will continue with dialysis and follow up accordingly. Patient with hypertension. Medications have been adjusted. At discharge blood pressure stable. At discharge she will continue with Norvasc 10 mg daily, carvedilol 25 mg 1 pill twice daily, and ramipril 10 mg daily. Recommend to maintain blood pressure less 150/80. Further adjustment can be done by nephrology or her PCP. Vital Signs/Physical Exam: Temp Pulse Resp BP Pulse Ox 98.1 F 85 18 140/60 94 04/29/20 08:00 04/29/20 08:49 04/29/20 08:00 04/29/20 09:46 04/29/20 08:00 General: Alert, In no apparent distress, Oriented x3, Cooperative HEENT: Atraumatic Neck: Supple Respiratory: Clear to auscultation bilaterally, Normal air movement Cardiovascular: Normal pulses, Regular rate/rhythm Gastrointestinal: Normal bowel sounds, Soft and benign, Non-distended Neurological: Normal speech, Normal strength at 5/5 x4 extr, Normal tone Laboratory Data at Discharge: WBC 5.3 K/uL (4.3-10.9) D 04/29/20 06:02 Hgb 11.1 g/dL (12.0-15.0) L 04/29/20 06:02 Hct 33.6 % (36.0-45.0) L 04/29/20 06:02 Plt Count 204 K/uL (152-406) 04/29/20 06:02 PT 11.7 SECONDS (9.5-12.5) 04/28/20 06:50 INR 0.99 04/28/20 06:50 Sodium 139 mmol/L (136-145) 04/29/20 06:02 Potassium 4.5 mmol/L (3.5-5.1) 04/29/20 06:02 BUN 34 mg/dL (7-18) H 04/29/20 06:02 Creatinine 5.27 mg/dL (0.55-1.3) H* D 04/29/20 06:02 Glucose 95 mg/dL (74-106) 04/29/20 06:02 Phosphorus 4.9 mg/dL (2.5-4.9) 04/29/20 06:02 Magnesium 2.2 mg/dL (1.8-2.4) 04/29/20 06:02 Total Bilirubin 0.5 mg/dL (0.2-1.0) 04/29/20 06:02 AST 31 U/L (15-37) 04/29/20 06:02 ALT 17 U/L (12-78) 04/29/20 06:02 Alkaline Phosphatase 76 U/L (45-117) 06/02/20 06:02 Home Medications: Amlodipine [Norvasc*] 10 mg PO [id number] 01/30/19 carvediloL [Coreg*] 25 mg PO BID 01/30/19 ramipriL [Altace*] 10 mg PO BEDTIME #60 cap 04/29/20 New Medications: ramipriL [Altace*] 10 mg PO BEDTIME #60 cap Patient Discharge Instructions: 1. Follow up with PCP in one week. 2. Patient presented with acute respiratory distress with hypoxia secondary to acute on chronic diastolic CHF complicated with end-stage renal disease on hemodialysis. Patient initially required BiPAP. Patient did get dialysis during the course of her stay. Fluid restriction was enforced. The patient has done well. At discharge she is not requiring any oxygen. Patient without significant shortness of breath. Echocardiogram obtained. Patient seen by nephrology and cardiology. Cardiology recommends no further evaluation at this time. At discharge patient will continue with a 1500 cc per day fluid restriction and low-salt diet. Recommend to monitor her weight daily. If her weight increases by more than 5 lb she is to contact nephrology or cardiology for further evaluation. Recommend follow up with cardiology in 1-2 weeks to follow up this hospitalization. 3. Patient with underlying end-stage renal disease on hemodialysis. Patient received dialysis with improvement of symptoms. At discharge she will continue with dialysis and follow up accordingly. 4. Patient with hypertension. Medications have been adjusted. At discharge blood pressure stable. At discharge she will continue with Norvasc 10 mg daily, carvedilol 25 mg 1 pill twice daily, and ramipril 10 mg daily. Recommend to maintain blood pressure less 150/80. Further adjustment can be done by nephrology or her PCP. Diet: Renal Activity: Ad lisa Time spent managing pt's care (in minutes): 55
[2020-04-29 17:57] VITALS: TEMP 97.8
[2020-04-29] MEDS: ramipriL 5 MG CAP PO SCH (21:08)
--- NOTE | 2020-04-29 21:10 | P.PN ---
Date of Service: 04/29/20 Vital Signs Temp Pulse Resp BP Pulse Ox 97.8 F 81 18 150/70 H 98 04/29/20 17:56 04/29/20 17:56 04/29/20 17:56 04/29/20 17:56 04/29/20 17:56 Medications Acetaminophen (Tylenol -Extra Strength) 500 mg PO Q4HP PRN PRN Reason: TEMP > 100' F Stop: 05/28/20 11:23 Amlodipine Besylate (Norvasc) 10 mg PO [id number] [facility] Stop: 05/29/20 06:01 Last Admin: 04/29/20 05:27 Dose: 10 mg Documented by: Carvedilol (Coreg) 25 mg PO BID [facility] Stop: 05/28/20 21:01 Last Admin: 04/29/20 08:49 Dose: 25 mg Documented by: Heparin Sodium (Porcine) (Heparin 5,000 Units/Ml) 5,000 unit SQ Q12HR [facility] Stop: 05/28/20 21:01 Last Admin: 04/29/20 08:49 Dose: 5,000 unit Documented by: Heparin Sodium (Porcine) (Heparin 1,000 Units/Ml) 6,000 unit IV EVERY HD PRN PRN Reason: AFTER EACH Stop: 05/28/20 11:23 Heparin Sodium (Porcine) (Heparin 1,000 Units/Ml) 2,000 unit IV EVERY HD [facility] Stop: 05/01/20 14:01 Hydralazine HCl (Apresoline) 20 mg IV Q4H PRN PRN Reason: FOR SBP>160 OR DBP>100 MMHG Stop: 05/28/20 18:34 Last Admin: 04/29/20 16:40 Dose: 20 mg Documented by: Albumin Human (Albumin 25%) 50 mls @ 100 mls/hr IV EVERY HD [facility] Stop: 05/28/20 11:23 Insulin Human Regular (Novolin -R) 0 unit SQ ACHS [facility]; Protocol Stop: 05/28/20 11:31 Last Admin: 04/29/20 16:23 Dose: Not Given Documented by: Mannitol (Mannitol 12.5 Gm/50 Ml Vial) 12.5 gm IV EVERY HD PRN PRN Reason: Titrate to SBP (MUST DEFINE) Stop: 05/28/20 11:23 Ondansetron HCl (Zofran) 4 mg IV Q4H PRN PRN Reason: NAUSEA / VOMITING Stop: 05/28/20 11:23 Last Admin: 04/29/20 05:47 Dose: 4 mg Documented by: Ramipril (Altace) 10 mg PO BEDTIME [facility]MAN Stop: 05/28/20 22:46 Last Admin: 04/28/20 23:15 Dose: 10 mg Documented by: Sodium Chloride (Normal Saline Flush) 10 ml IV BID [facility] Stop: 05/28/20 21:01 Last Admin: 04/29/20 08:49 Dose: 10 ml Documented by: Microbiology Results 04/28/20 06:50 Blood - Blood Aerobic Blood Culture - Preliminary No growth in 24 hours. 04/28/20 06:50 Blood - Blood Anaerobic Blood Culture - Preliminary 04/28/20 06:50 Blood - Blood Gram Stain - Preliminary 04/28/20 07:05 Blood - Blood Aerobic Blood Culture - Preliminary 04/28/20 07:05 Blood - Blood Blood Culture Gram Stain - Preliminary 04/28/20 07:05 Blood - Blood Anaerobic Blood Culture - Preliminary No growth in 24 hours. Assessment/ Plan: Nephrology Feeling better today with improved breathing. CPS improved without CP. No acute events overnight. Vitals, medications, blood work and imaging reviewed in the chart. General: Oriented x3, Cooperative, Moderate distress HEENT: Atraumatic, Mucous membr. moist/pink Neck: Supple, JVD distended Respiratory: Diminished Cardiovascular: Regular rate/rhythm, Edema Gastrointestinal: Soft and benign, Non-distended Musculoskeletal: No clubbing, No contractures Integumentary: No rashes, No cyanosis Neurological: Normal speech Laboratory Data (last 24 hrs) 04/28/20 06:50: PT 11.7, INR 0.99 04/28/20 06:50: WBC 8.2, Hgb 11.3 L, Hct 34.3 L, Plt Count 228 04/28/20 06:50: Sodium 137, Potassium 4.8, BUN 52 H, Creatinine 6.80 H*, Glucose 92, Phosphorus 5.3 H, Magnesium 2.4, Total Bilirubin 0.5, AST 39 H, ALT 18, Alkaline Phosphatase 79 Imagings Data: EXAM DESCRIPTION: RAD - Chest Single View - 04/28/2020 8:40 am CLINICAL HISTORY: Chest pain;Dyspnea COMPARISON: Portable chest January 2019 TECHNIQUE: AP portable chest image was obtained 04/28/2020 8:40 am . FINDINGS: Double-lumen dialysis catheter has been placed since prior imaging. Interstitial markings are increased only partly due to shallow inspiration. Heart size is upper normal. Vascular engorgement is present. Bilateral pleural effusions are evident. No pneumothorax. No acute bony abnormality seen. No acute aortic findings suspected. IMPRESSION: Moderate CHF/ volume overload pattern. Conclusions/Impression: A/ ESRD on HD. Acute hypoxic respiratory failure. Diastolic CHF, A/C. HTN with CKD/ CHF. DM II with CKD. Anemia in CKD. JUANITO/ Secondary HyperPTH. Moderate malnutrition. P/ Continue current POC and Medications. Arrange for acute HD with UF again today. Bipap therapy as needed. Retacrit PRN. Low sodium diet. No NSAIDs. AM labs. Daily weight. Case reviewed with Dr. Camarena.
[2020-04-29 21:17] VITALS: BP 183/86
--- NOTE | 2020-04-29 22:42 | CON ---
Date of Consultation: 04/29/2020 Patient was admitted to Dr. Camarena on 04/28/2020, I saw the patient on 04/29/2020. Reason For Consultation: Congestive heart failure. History Of Present Illness: Ms. Harris is a 59-year-old woman who has end-stage renal disease, on h emodialysis, hypertension, diabetes, anemia, and dyslipidemia. Came in with volume overload, althoug h she had not missed her dialysis. She did not have any chest pain, but had shortness of breath, PND , orthopnea, pedal edema. She had a blood pressure of 203/100 on presentation. Denies any nausea or vomiting, but had diaphoresis. Denied palpitations or syncope. By the time I saw Ms. Harris, she had already gotten 2 dialysis [id number] and was feeling much better. Her blood pressure is improv ed, but still high. Past Medical History: As stated above. Allergies: SHE IS ALLERGIC TO PENICILLIN. Review of Systems: Negative. Social History: Negative. Family History: Negative. Medications: At home include Coreg and Norvasc. Family History: Positive for hypertension. Physical Examination: Vital Signs: Stable, afebrile, sinus rhythm. HEENT: Negative. Neck: Supple. No bruit, lymphadenopathy, JVD, or thyromegaly. Chest: Her chest to me was clear to auscultation and percussion. Cardiac: Revealed a regular rhythm and rate with an S4 gallops. No murmurs or rubs. Abdomen: Benign. Extremities: Revealed no clubbing, cyanosis, or edema. Skin: Dry and intact. Neurological: She was nonfocal. Pulses were present distally bilaterally. Diagnostic Data: Her creatinine was 6.80. Her BNP was 28,339. Her pO2 was 58, pCO2 was 43, pH of 7 .41. EKG showed LVH. Chest x-ray showed moderate congestive heart failure. Impression: 1.Volume overload secondary to end-stage renal disease and diastolic congestive heart failure that i s acute on chronic. 2.Hypertension, poorly controlled. I think we can increase her Norvasc and Coreg dose if we have to . 3.Diabetes, well controlled. 4.Anemia, chronic. 5.Dyslipidemia. Plan: Ms. Harris has done very well after 2 episodes of hemodialysis. Echocardiogram is pending, b ut not done yet. She is comfortable, asymptomatic at this point with good oxygen saturation. I am c omfortable with her going home as far as her heart is concerned and I will see her in the office in t he next 2 weeks. I discussed the case further with Dr. Camarena. JOHN/CHANO Voice ID: [id number] Report ID: [id number]
== END 2020-04-29 22:12 | disposition home health service (06) | DRG 291 ==
LOC: ER 06:49 → ERHOLD 09:24 → 2ND 10:27
PROVIDERS: ADMIT Family Medicine; ATTEND Family Medicine
PROC: 5A1D70Z Performance of Urinary Filtration, Intermittent, Less than 6 Hours Per Day (ICD-10-PCS; principal; 2020-04-29)
DX: I13.2 Hypertensive heart and chronic kidney disease with heart failure and with stage 5 chronic kidney disease, or end stage renal disease (principal); N18.6 End stage renal disease; J96.01 Acute respiratory failure with hypoxia; I50.33 Acute on chronic diastolic (congestive) heart failure; N25.81 Secondary hyperparathyroidism of renal origin; E44.0 Moderate protein-calorie malnutrition; E78.5 Hyperlipidemia, unspecified; Z99.2 Dependence on renal dialysis; E11.22 Type 2 diabetes mellitus with diabetic chronic kidney disease; Z90.49 Acquired absence of other specified parts of digestive tract; Z88.0 Allergy status to penicillin; R60.1 Generalized edema; E11.43 Type 2 diabetes mellitus with diabetic autonomic (poly)neuropathy; K31.84 Gastroparesis; D63.8 Anemia in other chronic diseases classified elsewhere; E78.2 Mixed hyperlipidemia; F32.5 Major depressive disorder, single episode, in full remission; F17.210 Nicotine dependence, cigarettes, uncomplicated; D63.1 Anemia in chronic kidney disease; Z68.28 Body mass index [BMI] 28.0-28.9, adult; Z79.899 Other long term (current) drug therapy
CPT/HCPCS: 36415; 51702; 71045; 80048; 80053; 80076; 81003; 82805; 82947; 83735; 83880; 84100; 84484; 85025; 85610; 87040; 87077; 87186; 87205; 90935; 94640; 94660; 94760; 96374; 96375; 97112; 97116; 97161; 99285; J0360; J1644; J1940; J2405

== ENCOUNTER 2020-06-11 22:05 | Observation (INO) | payer MEDICAID ==
--- OUTSIDE RECORDS SUMMARY | 2020-06-11 22:07 | XMS REPORT | Continuity of Care Document ---
:[address] [facility] t Address [address] [place] [address] Care Team Providers Name Role Phone Choudhury, A Primary Care Physician Unavailable Mingo COOK Attending Clinician Problems This patient has no known problems. Allergies, Adverse Reactions, Alerts Allergy Allergy Status Severity Reaction(s) Onset Inactive Treating Comm ents Source Name Type Date Date Clinician Penicill Drug Active Hives, [facility] Swelling [facility] Social History Social Habit Start Date Stop Date Quantity Comments Source Sex Assigned At [facility] Medications Ordered Filled Start Stop Current Ordering Indication Dosage Frequency Signature Comments Components Source Medication Medication Date Date Medication? Clinician (SIG) Name Name amLODIPine Yes 10mg QD Take [address] (NORVASC) 3-11 by mouth [facility] - 10 MG 13:39: daily. Medical tablet 50 [place] carvedilol Yes 25mg Take [address] (COREG) 25 3-11 by mouth 2 [facility] es - MG tablet 13:39: (two) Medical 50 times [place] daily with breakfast and dinner. cholecalcif 0 Yes 1000U QD Take 1,[address] [facility] jacob 3-11 Units by [facility] - (VITAMIN 13:39: mouth Medical D3) 1,000 50 daily. Center unit tablet furosemide 0 Yes 40mg Q.5D Take [address] (LASIX) 40 3-11 by mouth 2 [facility] es - MG tablet 13:39: (two) Medical 50 times Center daily. Procedures This patient has no known procedures. Encounters Start End Encounter Admission Attending Care Care Encounter Source Date/Time Date/Time Type Type Clinicians Facility Department ID 2020-05-01 2020-05-01 Telephone MINERVA Aguila [id number] 00:00:00 00:00:00 Brigido Tony [id number] Matthew [id number] [facility] [id number] nal 044 Building Results Test Description Test Time Test Comments Results Result Sour e Comments SEDRICK CV ACCESS, 2019-02-07 FINAL REPORT PATIENT FLUORO 17:37:00 ID: [id number] History: Renal failure, need for hemodialysis access. [...] reported as (Ka,r): 8.3 mGy Signed: Cristal [place] Verified Date/Time: 02/07/2019 17:37:01 Reading Location: [facility] P048 Angio Body Reading Room
--- OUTSIDE RECORDS SUMMARY | 2020-06-11 22:07 | XMS REPORT | Clinical Summary ---
:1960 Author Organization [facility] Address [address] [place] [address] Care Team Providers Name Role Phone Kei [...] Not on file Results Not on fileafter 06/11/2019 Insurance Payer Benefit Plan / Group Subscriber ID Type Phone A ddress [place] xxxxxxxxx [phone] [id number]
--- OUTSIDE RECORDS SUMMARY | 2020-06-11 22:08 | XMS REPORT | Summary of Care ---
:1960 Author Organization [facility] Address [address] [place] [address] Care Team Providers Name Role Phone Ventura Camarena Medicaid o Bianca Choudhury MD Primary Care Provider [phone] Reason for Visit Reason Comments LAB Encounter Details Date Type Department Care Team Description 05/01/2020 M[place] Tiler Visit [facility] Pietro Aguila MD [address] [place] [address] Dr Baumann [address] [place] [address] ESRD needing dialysis; Professional Office 2, Adc Lab ACC/AHA stage B congestive heart failure ; Building Phlebotomy Type 2 d iabetes mellitus with other specified complication, with long-term current use of insulin Lab Professional Office Building [address] [place] [address] , [address] [place] [address] Allergies Active Allergy Reactions Severity Noted Date Comments Penicillins Hives 06/14/2016 documented as of this encounter (statuses as of 05/01/2020) Medications Medication Sig Dispensed Refills Start Date End Date Status Blood-Glucose Meter Use as directed. 1 Kit 0 07/16/2016 Active (FREESTYLE SYSTEM KIT) Brand per patient. KitIndications: Type 2 diabetes mellitus with other specified complication lancets (FREESTYLE Once daily for DM 30 Each 5 07/02/2017 Active LANCETS) 28 gauge Misc II blood sugar diagnostic Test blood sugars [...] WITH MEALS congestive heart failure, Essential hypertension gabapentin 300 mg Take 300 mg by 0 Active capsule mouth 2 (two) times daily. ramipril 5 mg capsule Take 5 mg by mouth 0 Active at bedtime. tiZANidine 4 mg Take 4 mg by mouth 0 Active capsule 2 (two) times daily. cetirizine (ZYRTEC) 10 Take 1 tablet by 30 tablet 1 05/01/2020 Active mg tabletIndications: mouth daily. Seasonal allergic rhinitis, unspecified trigger documented as of this encounter (statuses as of 05/01/2020) Active Problems Problem Noted Date Seasonal allergic rhinitis, unspecified trigger 2019 Tobacco dependence 05/01/2020 Hospital discharge follow-up 05/01/2020 Arteriovenous fistula stenosis, subsequent encounter 1 11/28/2016 Overview: Added automatically from request for min foy [id number] Obesity (BMI 30-39.9) 08/02/2017 ESRD needing dialysis 07/18/2017 Overview: Added automatically from request for min foy [id number] Elevated serum lactate dehydrogenase 02/11/2017 Essential hypertension 09/03/2016 Type 2 diabetes mellitus with other specified complica tion 07/16/2016 ACC/AHA stage B congestive heart failure 07/07/2016 Chronic diastolic heart failure 07/07/2016 MOE (dyspnea on exertion) 07/07/2016 Edema of both legs 06/21/2016 HTN (hypertension) 06/14/2016 Bipolar 1 disorder documented as of this encounter (statuses as of 05/01/2020) Resolved Problems Problem Noted Date Resolved Date Acute kidney injury (nontraumatic) 06/14/201607/16 UTI (urinary tract infection) 06/14/2016 07/16/2016 DM (diabetes mellitus) 06/14/2016 07/16/2016 documented as of this encounter (statuses as of 05/01/2020) Immunizations Name Administration Dates Next Due Influenza [...] Travel End No recent travel history available. COVID-19 Exposure Response Date Recorded In the last month, have you been in contact with No / Unsure 05/01/2020 9:33 AM CDT someone who was confirmed or suspected to have Coronavirus / COVID-19? documented as of this encounter Last Filed Vital Signs Not on filedocumented in this encounter Plan of Treatment Date Type Specialty Care Team Description 08/01/2020 Office Visit Family Medicine Brigido Aguila MD [address] [place] [address] Dr [address] [place], [place] [id number] 15 [phone] Name Type Priority Associated Diagnoses Order S chedule CBC WITH DIFFERENTIAL LAB Routine ESRD needing dialys is Ordered: 05/01/2020 Health Maintenance Due Date Last Done Comments DTaP,Tdap,and Td Vaccines (1 - 1970 Tdap) Depression Screening 1971 FOOT EXAM 1977 PAP SMEAR 1980 Breast [...] of this encounter Implants Implanted Type Area Rail Track Maintainer Device Shelf Model / Identifier Expiration Serial / Date Lot Xenosure Biological Patch PATCH Left: Arm [employer] 03/25/2023 [id number] / Implanted: Qty: 1 on 10/07/2017 by Leonard Echeverria MD at [facility] [id number] / [id number] documented as of this encounter Results Not on filedocumented in this encounter Visit Diagnoses Diagnosis ESRD needing dialysis End stage renal disease ACC/AHA stage B congestive heart failure Type 2 diabetes mellitus with other spec ified complication, with long-term current use of insulin documented in this encounter Insurance Payer Benefit Plan / Subscriber ID Effective Phone Address T e Group Dates UNIQUE CALHOUN xxxxxxxxx 2011-Jul[address] [place] [id number] MANAGED MEDICAID [place], MEDICAID [place] [address] 1 documented as of this encounter
--- OUTSIDE RECORDS SUMMARY | 2020-06-11 22:08 | XMS REPORT | Summary of Care ---
:1960 Author Organization [facility] Address [address] [place] [address] Care Team Providers Name Role Phone Ventura Camarena Medicaid [place] Bianca Choudhury MD Primary Care Provider Encounter Details Date Type Department Care Team Description 05/01/2020 Orders Only [facility] Doctor Unassigned, No [address] [facility] [place] [address] [address] [place] [phone] Allergies Active Allergy Reactions Severity Noted Date [...] Each 5 07/02/2017 Active LANCETS) 28 gauge [facility] blood sugar diagnostic Test blood sugars [...] of 05/01/2020) Active Problems Problem Noted Date Arteriovenous fistula stenosis, subsequent encounter 1 11/28/2016 Overview: Added automatically from request for min foy [id number] Obesity (BMI 30-39.9) 08/02/2017 ESRD needing dialysis 07/18/2017 Overview: Added automatically from request for min foy [id number] Elevated serum lactate dehydrogenase 02/11/2017 Essential hypertension [...] in contact with No / Unsure 05/01/2020 8:07 AM CDT someone who was confirmed or [...] of this encounter Implants Implanted Type Area Race Board Attendant Device Shelf Model / Identifier Expiration Serial / Date Lot Xenosure Biological Patch PATCH Left: Arm [employer] 03/25/2023 [id number] / Implanted: Qty: 1 on 10/07/2017 by Leonard Echeverria MD at [facility] [id number] / [id number] documented as of this encounter Procedures Procedure Name Priority Date/Time Associated Diagnosis Comme nts ASSIGNMENT OF BENEFITS Routine 05/01/2020 8:11 AM CDT documented in this encounter Results Not on filedocumented in this encounter Insurance Payer Benefit Plan / Subscriber ID Effective Phone Address T ype Group Dates UNIQUE CALHOUN xxxxxxxxx 2011-Pre[address] Medic [place] [id number] MA[place]GED MEDICAID [place], [place] documented as of this encounter
--- OUTSIDE RECORDS SUMMARY | 2020-06-11 22:09 | XMS REPORT | Summary of Care ---
:1960 Author Organization [facility] Address [address] [place] [id number] Care Team Providers Name Role Phone [place] Medicaid [place] Bianca Choudhury MD Primary Care Provider Reason for Referral (STAT) Status Reason Specialty Diagnoses / Referred By Referred To Procedures Contact Contact New Request Cardiology Diagnoses ACC/AHA stage B congestive heart failure Brigido Aguila, Procedures ECHO ROUTINE W/DOPPLER COLOR [address] [place] [address] Dr Baumann [address] [place] [address] (Routine) Status Reason Specialty Diagnoses / Referred By Referred To Procedures Contact Contact New Request Cardiac Diagnoses ACC/AHA stage B congestive heart failure Edhernan, Rehabilitation Procedures CONSULT/REFERRAL CARDIAC REHAB MD Brigido [address] [place] [address] Dr Baumann [address] [place] [phone] (Routine) Status Reason Specialty Diagnoses / Referred By Referred To Procedures Contact Contact New Request Cardiology Diagnoses ACC/AHA stage B congestive heart failure Brigido Aguila, Procedures CONSULT/REFERRAL CARDIOLOGY [address] [place] [address] Dr Baumann [address] [place] [address] [phone] (Routine) Status Reason Specialty Diagnoses / Referred By Referred To Procedures Contact Contact New Request Nephrology Diagnoses ESRD needing dialysis Brigido Aguila, Procedures CONSULT/REFERRAL NEPHROLOGY [address] [place] [address] Dr Baumann [address] [place] [address] 959 Reason for Visit Reason Comments Follow-up Kidney Problem Diabetes Mellitus II CHF Allergic Rhinitis TOBACCO ABUSE Encounter Details Date Type Department Care Team Description 05/01/2020 Office Visit [facility] Pediatric Brigido Aguila E SRD needing dialysis (Primary Dx); and Adult Primary MD Type 2 diabetes mellitus with other spec ified complication, with long-term current use of insulin; [facility]- [address] ACC/AHA stage B congestive heart failure ; [address] [place] [address] [address]; [address], [address] [place] [address] Seasonal allergic rhinitis, unspecified trigger; [place], [place] [phone] Tobacco dependence; [phone] Hospital discharge follow-up [phone] Allergies Active Allergy Reactions Severity Noted Date [...] 5 07/02/2017 Active LANCETS) 28 gauge [facility] blood sugar diagnostic Test blood sugars [...] Added automatically from request for min foy [id number] Obesity (BMI 30-39.9) 08/02/2017 ESRD needing dialysis 07/18/2017 Overview: Added automatically from request for min foy [id number] Elevated serum lactate dehydrogenase 02/11/2017 Essential hypertension [...] of this encounter Last Filed Vital Signs Vital Sign Reading Time Taken Comments Blood Pressure 150/79 05/01/2020 8:19 AM CDT Pulse 67 05/01/2020 8:19 AM CDT Temperature 36.4 C (97.6 F) 05/01/2020 8:19 AM CDT Respiratory Rate 18 05/01/2020 8:19 AM CDT Oxygen Saturation 94% 05/01/2020 8:19 AM CDT Inhaled Oxygen Concentration - - Weight 73.8 kg (162 lb 11.2 oz) 05/01/2020 8:19 AM CDT Height - - Body Mass Index 27.07 01/18/2019 3:16 PM MATERIALS ASSOCIATE documented in this encounter Patient Instructions Patient InstructionsBrigido Aguila MD - 05/01/2020 8:00 AM CDT Patient Education Eating Heart-Healthy Food: Using the DASH Plan Eating for your heart doesnt have to be hard or boring. You just need to know how to make healthier choices. The DASH eating plan has been developed to help you do just that. DASH stands for DietaryApproaches to Stop Hypertension. It is a plan that has been proven to be healthier for your heart and to lower your risk for high blood pressure. It can also help lower your risk for cancer, heart disease, osteoporosis, and diabetes. Choosing from each food group Choose foods from each of the food groups below each day. Try to get the recommended number of servings for each food group. The serving numbers are based on a diet of 2,000 calories a day.Talk with your healthcare provider if youre not sure about your calorie needs. Along with getting the correct servings, the DASH plan also advises less than 2,300 mg of salt (sodium) per day. Lowering sodium intake to 1,500 mg per day lowers blood pressure even more. (There's about 2,300 mg of sodium in 1 teaspoon of salt.) Grains Servings: 6 to 8 a day A serving is: 1 slice bread 1 ounce dry cereal Half a cup cooked rice, pasta or cereal Best choices: Whole grains and any grains high in fiber. Vegetables Servings: 4 to 5 a day A serving is: 1 cup raw leafy vegetable Half a cup cut-up raw or cooked vegetable Half a cup vegetable juice Best choices: Fresh or frozen vegetables prepared without added salt or fat. Fruits Servings: 4 to 5 a day A serving is: 1 medium fruit One-quarter cup dried fruit Half a cup fresh, frozen, or canned fruit Half a cup of 100% fruit juices Best choices: A variety of fresh fruits of different colors. Whole fruits are abetter choice than fruit juices. Low-fat or fat-free dairy Servings: 2 to 3 a day A serving is: 1 cup milk 1 cup yogurt One and a half ounces cheese Best choices: Skim or 1% milk, low-fat or fat-free yogurt or buttermilk, and low-fat cheeses. Lean meats, poultry, fish Servings:6 or fewer a day A serving is: 1ounce cooked meats, poultry, or fish 1 egg Best choices: Leanpoultry and fish. Trim away visible fat. Broil, grill, roast, or boil instead offrying. Remove skin from poultry before eating. Limit how much red meat you eat. Nuts, seeds, beans Servings: 4 to 5 a week A serving is: One-third cup nuts (one and a half ounces) 2 tablespoons nut butter or seeds Half a cup cooked dry beans or legumes Best choices: Dry roasted nuts with no salt added, lentils, kidney beans, garbanzo beans, and whole carias beans. Fats and oils Servings: 2 to 3 a day A serving is: 1 teaspoon vegetable oil 1 teaspoon soft margarine 1 tablespoonmayonnaise 2 tablespoons salad dressing Best choices: Nut and vegetable oils(nontropical vegetable oils), such as olive and canola oil. Sweets Servings: 5 a week or fewer A serving is: 1 tablespoon sugar, maple syrup, or honey 1 tablespoon jam or jelly 1 half-ounce jelly beans (about 15) 1 cup lemonade Best choices: Dried fruit can be a satisfying sweet. Choose low-fat sweets. And watch your serving sizes! For more on the DASH eating plan, visit: www.nhlbi.nih.gov/health/health-topics/topics/dash Yashira last reviewed this educational content on 05/28/201919993660-8036 [employer]. [address] [place] [address], [place] [address]. All rights reserved. This information is not intended as a substitute for professional medical care. Always follow your healthcare professional's instructions. documented in this encounter Progress Notes Brigido Aguila MD - 05/01/2020 8:00 AM CDT Cc: Chief Complaint Patient presents with Follow-up Kidney Problem Diabetes Mellitus II CHF Allergic Rhinitis TOBACCO ABUSE Dennise Harris is a 59 year old female who has has a past medical history of Bipolar 1 disorder(1999), Chronic diastolic (congestive) heart failure, CKD (chronic kidney disease), Diabetes mellitus, History of asthma, and Hypertension. Patient is here for follow-up accompanied by her daughter (Mile), who provides the history. She was hospitalized at outside facility, [facility], for difficulty breathing. DOP notes patient has CHF, was told she had fluids in her lungs, has HD in the hospital. Patient reports cough that is non productive. Patient notes sinus drainage, and seasonal allergies. Patient also notes right knee pain, notes hx arthritis, is s/p arthroscopic surgery about 25 yrs ago. Patient has CKD, BP on arrival is 150/79, on ramipril 5mg qDay, Carvedilol 25mg BID and Amlodipine 10mg qDay. Patient is getting HD today at the [facility] [place]. Patient is also established with Nephrology. Patient currently smokes 1PPD every 2 days, has smoked since age 16 year-old. Allergies Dennise Polanco is allergic to pcn [penicillins]. Medications Outpatient Medications Prior to Visit Medication Sig Dispense Refill gabapentin 300 mg capsule Take 300 mg by mouth 2 (two) times daily. ramipril 5 mg capsule Take 5 mg by mouth at bedtime. tiZANidine 4 mg capsule Take 4 mg by mouth 2 (two) times daily. CARVEDILOL 25 mg tablet TAKE 1 TABLET BY MOUTH TWICE DAILY WITH MEALS 60 tablet 11 AMLODIPINE 10 mg tablet TAKE 1 TABLET BY MOUTH ONCE DAILY 30 tablet 11 Diclofenac Sodium (VOLTAREN) 1 % gel Take 2-4 grams twice a day as needed for pain 100 g 3 ERGOCALCIFEROL, VITAMIN D2, (VITAMIN D ORAL) Take by mouth. blood sugar diagnostic (FREESTYLE INSULINX TEST STRIPS) strip Test blood sugars daily for diabetes, Please give patient any brand of testing supplies she wants 30 Strip 5 lancets (FREESTYLE LANCETS) 28 gauge Misc Once daily for DM II 30 Each 5 Blood-Glucose Meter (FREESTYLE SYSTEM KIT) Kit Use as directed. Brand per patient. 1 Kit 0 No facility-administered medications prior to visit. Histories Past Medical History: Diagnosis Date Bipolar 1 disorder 1999 Chronic diastolic (congestive) heart failure CKD (chronic kidney disease) close to dialysis, follows with Dr. Berry Diabetes mellitus History of asthma Hypertension Past Surgical History: Procedure Laterality Date APPENDECTOMY ARTERIOVENOUS FISTULA REVISION Left 10/07/2017 Surgeon: Leonard Echeverria MD; Location: [facility] OR [facility] CENTRAL VENOUS ACCESS CATHETER PLACEMENT Left 08/02/2017 Surgeon: Leonard Echeverria MD; Location: [facility] [place] TONSILLECTOMY Social History Socioeconomic History Marital status: Spouse name: Not on file Number of children: Not on file Years of education: Not on file Highest education level: Not on file Occupational History Not on file Social Needs Financial resource strain: Not on file Food insecurity: Worry: Not on file Inability: Not on file Transportation needs: Medical: Not on file Non-medical: Not on file Tobacco Use Smoking status: Current Every Day Smoker Packs/day: 0.50 Years: 30.00 Pack years: 15.00 Smokeless tobacco: Never Used Substance and Sexual Activity Alcohol use: Yes Comment: beer during the week to sleep Drug use: Yes Types: Marijuana Comment: has not smoked marijuana in 4-5 months. Sexual activity: Yes Partners: Male control/protection: Condom Comment: patient denies abuse Lifestyle Physical activity: Days per week: Not on file Minutes per session: Not on file Stress: Not on file Relationships Social connections: Talks on phone: Not on file Gets together: Not on file Attends presybeterian service: Not on file Active member of club or organization: Not on file Attends meetings of clubs or organizations: Not on file Relationship status: Not on file Intimate partner violence: Fear of current or ex partner: Not on file Emotionally abused: Not on file Physically abused: Not on file Forced sexual activity: Not on file Other Topics Concern Not on file Social History Narrative Lives with her daughter, she is looking for a place. Family History Problem Relation Age of Onset Heart Mother High cholesterol Mother Hypertension Mother Diabetes Mother Diabetes Sister Other - see comments Sister Other - see comments Sister Diabetes Sister Diabetes Sister Diabetes Sister Review of Systems Constitutional: Negative for chills, fever, weight gain and weight loss. HENT: Positive for rhinorrhea. Respiratory: Negative for chest tightness and shortness of breath. Cardiovascular: Negative for chest pain and palpitations. Musculoskeletal: Positive for arthralgias and myalgias. Neurological: Negative for weakness and light-headedness. Psychiatric/Behavioral: The patient is not nervous/anxious. Endocrine: Negative for weight gain and weight loss. Vital Signs BP (!) 150/79 | Pulse 67 | Temp 36.4 C (97.6 F) (Temporal Artery) | Resp 18 | Wt 162 lb 11.2oz (73.8 kg) | SpO2 94% | BMI 27.07 kg/m Physical Exam Constitutional: She is oriented to person, place, and time. No distress. HENT: Head: Normocephalic and atraumatic. Eyes: Pupils are equal, round, and reactive to light. EOM are normal. Neck: Normal range of motion. Neck supple. Cardiovascular: Normal rate, regular rhythm, normal heart sounds and intact distal pulses. Pulmonary/Chest: Effort normal and breath sounds normal. Abdominal: Soft. Bowel sounds are normal. Musculoskeletal: Normal range of motion. She exhibits no edema. Neurological: She is alert and oriented to person, place, and time. Skin: Skin is warm. Capillary refill takes less than 2 seconds. No erythema. Psychiatric: She has a normal mood and affect. Her behavior is normal. Nursing note and vitals reviewed. Assessment/Plan ESRD needing dialysis - Complicated by anemia, HTN and CHF will get HD today - CONSULT/REFERRAL NEPHROLOGY Type 2 diabetes mellitus with other specified complication, with long-term current use of insulin - Diet management. Encourage lifestyle and diet modification: lean meat, low fat, vegetables, nuts, low carb, increased fruits and exercise - Labs as ordered ACC/AHA stage B congestive heart failure - Stable, not in crisis. BP noted, goal > 110/60 and < 140/90. Encouraged to consider adoptingDASH diet plan - Encouraged to keep Home BP log. Continue Ramipril, Amlodipine and Coreg - CONSULT/REFERRAL CARDIOLOGY - CONSULT/REFERRAL CARDIAC REHAB Seasonal allergic rhinitis, unspecified trigger - cetirizine (ZYRTEC) 10 mg tablet; Take 1 tablet by mouth daily. Dispense: 30 tablet; Refill: 1 Tobacco dependence - Currently smokes 1PPD, benefits of cessation discussed > 10 mins Preventive Care: Medication reconciliation, patient education and anticipatory guidance completed. All questions and concerns addressed. AVS given, handout on DASH Plan and CKD provided. Return in about 3 months (around 08/01/2020), or if symptoms worsen or fail to improve. Brigido Aguila MD, MPH, AAHIVS Weapons System Instrument Mechanic, Department of Family Medicine [facility] Primary & Specialty Care - ADC 05/01/2020 8:51 AM documented in this encounter Plan of Treatment Date Type Specialty Care Team Description 08/01/2020 Office Visit Family Medicine Brigido Aguila MD [address] [place] [address] Dr Baumann [address] [place] [address] 15 [phone] Name Type Priority Associated Diagnoses Order S chedule MICROALBUMIN URINE LAB Routine Type 2 diabetes mellit Expected: 05/01/2020, with other specified Expires : 05/01/2021 complication, with long-term current use of insulin Health Maintenance Due Date Last Done Comments DTaP,Tdap,and Td Vaccines (1 - 1970 Tdap) Depression Screening 1971 FOOT EXAM 1977 PAP SMEAR 1980 Breast Cancer Screening 1999 (MAMMOGRAM) COLONOSCOPY 2009 Zoster Recombinant Vaccine 2009 (SHINGRIX) (1 of 2) LUNG CANCER SCREEN: Recommended 2014 for age 55-80 with 30 + pack year history EYE EXAM 12/26/2019 12/26/2018 INFLUENZA VACCINE (Season Ended) 2020 HgA1C 10/31/2020 05/01/2020, 09/04/2018, 05/22/2018, Additional history exists CREATININE (SERUM) 05/01/2021 05/01/2020, 01/29/2019, 01/18/2019, Additional history exists LDL-C 05/01/2021 05/01/2020, 06/15/2016 PNEUMOCOCCAL 0-64 YEARS COMBINED Completed 02/15/2017 SERIES HEPATITIS C (HCV) SCREEN Completed 01/29/2019, 01/18/2019 documented as of this encounter Implants Implanted Type Area Trade Mark Attorney Device Shelf Model / Identifier Expiration Serial / Date Lot Xenosure Biological Patch PATCH Left: Arm [employer] 03/25/2023 [id number] / Implanted: Qty: 1 on 10/07/2017 by Leonard Echeverria MD at [facility] [id number] / [id number] documented as of this encounter Results THYROID STIMULATING HORMONE (05/01/2020 9:42 AM CDT) Pathologist Sig nature TSH 1.48 0.45 - 4.70 mIU/L [facility] Specimen Blood Performing Organization Address [facility] Phone Number [facility] CLIA: [id number], [address] [place] [address] LIPID PANEL ([id number])(TOTAL CHOLESTEROL, TRIGLYCERIDES, HDL) (05/01/2020 9:42 AM CDT) Pathologist Sig nature CHOL 143 120 - 200 mg/dL [facility] HDL 43 (L) >50 mg/dL [facility] HDLC RATIO 3.3 <=4.5 [facility] TRIG 133 30 - 170 mg/dL [facility] LDL CHOL 73 <=160 mg/dL [facility] VLDL 27 5 - 60 mg/dL [facility] Specimen Blood Performing Organization Address [facility] Phone Number [facility] CLIA: [id number], [address] [place] [address] GLYCOSYLATED HEMOGLOBIN (A1C) (05/01/2020 9:42 AM CDT) Pathologist Sig nature HGB A1C <4.0 (L) 4.0 - 6.0 % NGSP [facility] Specimen Blood Narrative Performed At %A1C (NGSP) Interpretation (ADA) [facility] 4.8-5.6 Normal or (Non-Diabetic Ra nge) 5.7-6.4 Increased Risk (Pre-Diabet ic) >6.5 Diabetes Indicated Performing Organization Address City/[facility] Phone Number [facility] CLIA: [id number], [address] [place], [place] [address] FREE T3 (05/01/2020 9:42 AM CDT) Pathologist Sig nature FREE T3 3.22 2.77 - 5.27 pg/mL [facility] Specimen Blood Performing Organization Address [facility] Phone Number [facility] CLIA: [id number], [address] [place], [place] [address] FREE T4 (05/01/2020 9:42 AM CDT) Pathologist Sig nature FREE T4 1.55 0.78 - 2.20 ng/dL [facility] Specimen Blood Performing Organization Address [facility] Phone Number [facility] CLIA: [id number], [address] [place] [address] COMP. METABOLIC PANEL ([id number]) (05/01/2020 9:42 AM CDT) NA 140 135 - 145 [facility] mmol/L [facility] K 4.9 3.5 - 5.0 [facility] mmol/L [facility] CL 105 98 - 108 mmol/L [facility] CO2 TOTAL 19 (L) 23 - 31 mmol/L [facility] AGAP 16 2 - 16 [facility] BUN 56 (H) 7 - 23 mg/dL [facility] GLUCOSE 117 (H) 70 - 110 mg/dL [facility] CREATININE 7.71 (H) 0.50 - 1.04 [facility] mg/dL [facility] TOTAL BILI 0.6 0.1 - 1.1 mg/dL [facility] CALCIUM 9.6 8.6 - 10.6 [facility] mg/dL [facility] T PROTEIN 8.5 (H) 6.3 - 8.2 g/dL [facility] ALBUMIN 4.4 3.5 - 5.0 g/dL [facility] ALK PHOS 78 34 - 122 U/L [facility] ALTv 16 5 - 35 U/L [facility] AST(SGOT) 42 (H) 13 - 40 U/L [facility] eGFR Calculation 5.4 mL/min/1.73m2 [facility] ([facility] Spanish) eGFR Calculation 6.5 mL/min/1.73m2 [facility] () [facility] Specimen Blood Narrative Performed At [facility] of Glomerular Filtration Rate (GFR) [facility] and Staging of Kidney Disease* + + +- + | GFR (mL/min/1.73 m2) | With Kidney Damage | Without Kidney Damage + + +- + | >90 | Stage one | Normal + + +- + | 60-89 | Stage two | Decreased GFR + + +- + | 30-59 | Stage three | Stage three + + +- + | 15-29 | Stage four | Stage four + + +- + | <15 (or dialysis) | Stage five | Stage five + + +- + *Each stage assumes the associated GFR level has been in effect for at least three months. Stages 1 to 5, with or without kidney disease, indicate chronic kidney disease. Notes: Determination of stages one and two (with eGFR >59mL/min/1.73 m2) requires estimation of kidney damage for at least three months as defined by structural or functional abnormalities of the kidney, manifested by either: Pathological abnormalities or Markers of kidney damage (including abnormalities in the composition of the blood or urine or abnormalities in imaging tests). Performing Organization Address City/State/Zipcode Phone Number [facility] CLIA: [id number], [address] [place] [place] [address] [address] [facility] [address] documented in this encounter Visit Diagnoses Diagnosis ESRD needing dialysis - Primary End stage renal disease Type 2 diabetes mellitus with other spec ified complication, with long-term current use of insulin ACC/AHA stage B congestive heart failure Essential hypertension Unspecified essential hypertension Seasonal allergic rhinitis, unspecified trigger Tobacco dependence Tobacco use disorder Hospital discharge follow-up Other follow-up examination documented in this encounter Insurance Payer Benefit Plan / Subscriber ID Effective Phone Address T ype Group Dates UNIQUE CALHOUN xxxxxxxxx 2011-Julian SCHWARTZ [facility] [address] MANAGED MEDICAID [place], MEDICAID [place] [address] 1 documented as of this encounter"
--- OUTSIDE RECORDS SUMMARY | 2020-06-11 22:10 | XMS REPORT | Summary of Care ---
:1960 Author Organization [facility] Address [address] [place] [address] Care Team Providers Name Role Phone Ventura Camarena Medicaid Hmo Bianca Choudhury MD Primary Care Provider Reason for Visit Reason Comments TEST RESULTS Encounter Details Date Type Department Care Team Description 05/07/2020 Telephone [facility] Pediatric and Brigido Proctor MD TEST RESULTS Adult Primary Care- [address] [facility] 205 146 [place] [address] [address] [place] [address] [phone] Allergies Active Allergy Reactions Severity Noted Date Comments Penicillins Hives 06/14/2016 documented as of this encounter (statuses as of 05/07/2020) Medications Medication Sig Dispensed Refills Start Date [...] as of this encounter (statuses as of 05/07/2020) Active Problems Problem Noted Date Seasonal allergic rhinitis, unspecified trigger 2019 Tobacco dependence 05/01/2020 Hospital discharge follow-up 05/01/2020 Arteriovenous fistula stenosis, subsequent encounter 1 11/28/2016 Overview: Added automatically from request for min danii [id number] Obesity (BMI 30-39.9) 08/02/2017 ESRD needing dialysis 07/18/2017 Overview: Added automatically from request for min danii [id number] Elevated serum lactate dehydrogenase 02/11/2017 Essential hypertension 09/03/2016 Type 2 diabetes mellitus with other specified complica tion 07/16/2016 ACC/AHA stage B congestive heart failure 07/07/2016 Chronic diastolic heart failure 07/07/2016 MOE (dyspnea on exertion) 07/07/2016 Edema of both legs 06/21/2016 HTN (hypertension) 06/14/2016 Bipolar 1 disorder documented as of this encounter (statuses as of 05/07/2020) Resolved Problems Problem Noted Date Resolved Date Acute kidney injury (nontraumatic) 06/14/201607/16 UTI (urinary tract infection) 06/14/2016 07/16/2016 DM (diabetes mellitus) 06/14/2016 07/16/2016 documented as of this encounter (statuses as of 05/07/2020) Immunizations Name Administration Dates Next Due Influenza [...] Office Visit Family Medicine Brigido Aguila MD [address] [place] [address] Dr Ba[address] [place] [address] 77 15 [phone] Health Maintenance Due Date Last Done Comments [...] of this encounter Implants Implanted Type Area Circle Beveler Device Shelf Model / Identifier Expiration Serial / Date Lot Xenosure Biological Patch PATCH Left: Arm Lemaitre [employer] 03/25/2023 E0.8P8 / Implanted: Qty: 1 on 10/07/2017 by Leonard Echeverria MD at [facility] [id number] / [id number] documented as of this encounter Results Not on filedocumented in this encounter Insurance Payer Benefit Plan / Subscriber ID Effective Phone Address T [facility] Group Dates UNIQUE CALHOUN xxxxxxxxx 2011-Julian [address] BOX Medic [facility] [place] [address] MANAG[place] MEDICA[place] documented as of this encounter
--- OUTSIDE RECORDS SUMMARY | 2020-06-11 22:10 | XMS REPORT | Summary of Care ---
:1960 Author Organization [facility] Address [address] [place] [address] Care Team Providers Name Role Phone Ventura Camarena Medicaid Hmo Bianca Choudhury MD Primary Care Provider [phone] Reason for Referral (STAT) Status Reason Specialty Diagnoses / Referred By Referred To Procedures Contact Contact New Request Cardiology Diagnoses ACC/AHA stage B congestive heart failure Brigido Aguila, Procedures ECHO ROUTINE W/DOPPLER COLOR [address] [place] [address] Dr Buam[address] [place] [address] (Routine) Status Reason Specialty Diagnoses / Referred By Referred To Procedures Contact Contact New Request Cardiac Diagnoses ACC/AHA stage B congestive heart failure Edhernan, Rehabilitation Procedures CONSULT/REFERRAL CARDIAC REHAB MD Brigido [address] [place] [address] Dr Baumann [address] [place] [address] (Routine) Status Reason Specialty Diagnoses / Referred By Referred To Procedures Contact Contact New Request Cardiology Diagnoses ACC/AHA stage B congestive heart failure Brigido Aguila, Procedures CONSULT/REFERRAL CARDIOLOGY [address] [place] [address] Dr Baumann [address] [place] [address] 317 (Routine) Status Reason Specialty Diagnoses / Referred By Referred To Procedures Contact Contact New Request Nephrology Diagnoses ESRD needing dialysis Brigido Aguila, Procedures CONSULT/REFERRAL NEPHROLOGY [address] [place] [address] Dr Baumann [address] [place] [address] 401 Reason for Visit Reason Comments Follow-up Kidney Problem Diabetes Mellitus II CHF Allergic Rhinitis TOBACCO ABUSE Encounter Details Date Type Department Care Team Description 05/01/2020 Office Visit [facility] Pediatric Brigido Aguila E SRD needing dialysis (Primary Dx); and Adult Primary MD Type 2 diabetes mellitus with other spec ified complication, with long-term current use of insulin; [facility]- [address] ACC/AHA stage B congestive heart failure ; [address] [place] [address] [address]; Drive, [address] [place] [address] Seasonal allergic rhinitis, unspecified trigger; [place], [place] [phone] Tobacco dependence; [address] Hospital discharge follow-up [phone] Allergies Active Allergy Reactions Severity Noted Date [...] Each 5 07/02/2017 Active LANCETS) 28 gauge [facility] II blood sugar diagnostic Test blood sugars [...] Added automatically from request for min foy [id number] Obesity (BMI 30-39.9) 08/02/2017 ESRD needing dialysis 07/18/2017 Overview: Added automatically from request for min foy [id number] Elevated serum lactate dehydrogenase 02/11/2017 Essential hypertension [...] Body Mass Index 27.07 01/18/2019 3:16 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 [address] [place] [address], [place] [address]. All rights reserved. This information is not [...] history. She was hospitalized at outside facility, [facility], for difficulty breathing. DOP notes patient has [...] Patient is getting HD today at the [facility]. Patient is also established with Nephrology. Patient [...] Left 10/07/2017 Surgeon: Leonard Echeverria MD; Location: [facility] OR [facility] CENTRAL VENOUS ACCESS CATHETER PLACEMENT Left 08/02/2017 Surgeon: Leonard Echeverria MD; [place] [facility] [place] Social History Socioeconomic History Marital status: [...] file Gets together: Not on file Attends christian service: Not on file Active member of [...] to improve. Brigido Aguila MD, MPH, AAHIVS Dry Finisher, Department of Family Medicine [facility] Primary & Specialty [facility] - ADC 05/01/2020 8:51 AM documented in this encounter Plan of Treatment Date Type Specialty Care Team Description 08/01/2020 Office Visit Family Medicine Brigido Aguila MD [address] [place] [address] Dr Baumann [address] [place] [address] 15 [phone] Name Type Priority Associated Diagnoses Order S [...] of this encounter Implants Implanted Type Area Casket Inspector Device Shelf Model / Identifier Expiration Serial / Date Lot Xenosure Biological Patch PATCH Left: Arm Lemaitre V[employer] 03/25/2023 E0.8P8 / Implanted: Qty: 1 on 10/07/2017 by Leonard Echeverria MD at [facility] [id number] / [id number] documented as of this encounter Results THYROID STIMULATING HORMONE (05/01/2020 9:42 AM CDT) Pathologist Sig nature TSH 1.48 0.45 - 4.70 mIU/L [facility] Specimen Blood Performing Organization Address [facility] Phone Number [facility] CLIA: [id number], [address] [place] [address] LIPID PANEL ([id number])(TOTAL CHOLESTEROL, TRIGLYCERIDES, HDL) (05/01/2020 9:42 AM CDT) Pathologist Sig nature CHOL 143 120 - 200 mg/dL [facility] HDL 43 (L) >50 mg/dL [facility] HDLC RATIO 3.3 <=4.5 [facility] TRIG 133 30 - 170 mg/dL [facility] LDL CHOL 73 <=160 mg/dL [facility] VLDL 27 5 - 60 mg/dL [facility] Specimen Blood Performing Organization Address [facility] Phone Number [facility] CLIA: [id number], [address] [place] [address] GLYCOSYLATED HEMOGLOBIN (A1C) (05/01/2020 9:42 AM CDT) Pathologist Sig nature HGB A1C <4.0 (L) 4.0 - 6.0 % NGSP [facility] L [facility] Specimen Blood Narrative Performed At %A1C (NGSP) Interpretation (ADA) [facility] 4.8-5.6 Normal or (Non-Diabetic Ra nge) 5.7-6.4 Increased Risk (Pre-Diabet ic) >6.5 Diabetes Indicated Performing Organization Address City/[facility] Phone Number [facility] CLIA: [id number], [address] [place], [place] [address] FREE T3 (05/01/2020 9:42 AM CDT) Pathologist Sig nature FREE T3 3.22 2.77 - 5.27 pg/mL [facility] Specimen Blood Performing Organization Address [facility] Phone Number [facility] CLIA: [id number], [address] [place], [place] [address] FREE T4 (05/01/2020 9:42 AM CDT) Pathologist Sig nature FREE T4 1.55 0.78 - 2.20 ng/dL [facility] Specimen Blood Performing Organization Address [facility] Phone Number [facility] CLIA: [id number], [address] [place] [address] COMP. METABOLIC PANEL ([id number]) (05/01/2020 9:42 AM CDT) NA 140 135 - 145 [facility] mmol/L [facility] K 4.9 3.5 - 5.0 [facility] mmol/L [facility] CL 105 98 - 108 mmol/L [facility] CO2 TOTAL 19 (L) 23 - 31 mmol/L [facility] AGAP 16 2 - 16 [facility] BUN 56 (H) 7 - 23 mg/dL [facility] GLUCOSE 117 (H) 70 - 110 mg/dL [facility] CREATININE 7.71 (H) 0.50 - 1.04 [facility] mg/dL [facility] TOTAL BILI 0.6 0.1 - 1.1 mg/dL [facility] CALCIUM 9.6 8.6 - 10.6 [facility] mg/dL [facility] T PROTEIN 8.5 (H) 6.3 - 8.2 g/dL [facility] ALBUMIN 4.4 3.5 - 5.0 g/dL [facility] ALK PHOS 78 34 - 122 U/L [facility] ALTv 16 5 - 35 U/L [facility] AST(SGOT) 42 (H) 13 - 40 U/L [facility] eGFR Calculation 5.4 mL/min/1.73m2 [facility] (Non[facility] LABORATORY Irish) eGFR Calculation 6.5 mL/min/1.73m2 [facility] () [facility] Specimen Blood Narrative Performed At [facility] [place] of Glomerular Filtration Rate (GFR) [facility] and Staging of Kidney Disease* + [...] tests). Performing Organization Address City/State/Zipcode Phone Number [facility] CLIA: [id number], [address] [place] [address] [facility] [address] documented in this encounter Visit [...] Group Dates UNIQUE CALHOUN xxxxxxxxx 2011-Julian SCHWARTZ [facility] [address] MANAGED MEDICAID [place], MEDICAID [place] [address] documented as of this encounter"
--- OUTSIDE RECORDS SUMMARY | 2020-06-11 22:11 | XMS REPORT | Summary of Care ---
:1960 Author Organization [facility] Address [address] [place] [address] Care Team Providers Name Role Phone Ventura Camarena Medicaid Hmo Bianca Choudhury MD Primary Care Provider [phone] Reason for Visit Reason Comments Orders need orders, and clinic note s Encounter Details Date Type Department Care Team Description 05/01/2020 Telephone [facility] Pediatric Brigido Aguila MD Orders (need orders, and Adult Primary [address] and clinic notes) [facility] [place] [place] [address] [address], [place] [address] [place] [address] Allergies Active Allergy Reactions Severity Noted Date Comments Penicillins Hives 06/14/2016 documented as of this encounter (statuses as of 05/08/2020) Medications Medication Sig Dispensed Refills Start Date [...] as of this encounter (statuses as of 05/08/2020) Active Problems Problem Noted Date Seasonal allergic rhinitis, unspecified trigger 2019 Tobacco dependence 05/01/2020 Hospital discharge follow-up 05/01/2020 Arteriovenous fistula stenosis, subsequent encounter 1 11/28/2016 Overview: Added automatically from request for min danii [id number] Obesity (BMI 30-39.9) 08/02/2017 ESRD needing dialysis 07/18/2017 Overview: Added automatically from request for min danii [id number] Elevated serum lactate dehydrogenase 02/11/2017 Essential hypertension 09/03/2016 Type 2 diabetes mellitus with other specified complica tion 07/16/2016 ACC/AHA stage B congestive heart failure 07/07/2016 Chronic diastolic heart failure 07/07/2016 MOE (dyspnea on exertion) 07/07/2016 Edema of both legs 06/21/2016 HTN (hypertension) 06/14/2016 Bipolar 1 disorder documented as of this encounter (statuses as of 05/08/2020) Resolved Problems Problem Noted Date Resolved Date Acute kidney injury (nontraumatic) 06/14/201607/16 UTI (urinary tract infection) 06/14/2016 07/16/2016 DM (diabetes mellitus) 06/14/2016 07/16/2016 documented as of this encounter (statuses as of 05/08/2020) Immunizations Name Administration Dates Next Due Influenza [...] Office Visit Family Medicine Brigido Aguila MD [address] [place] [address] Dr Baumann [address] [place] [address] 15 [phone] Health Maintenance Due Date Last Done Comments [...] of this encounter Implants Implanted Type Area Civil Engineering Professor Device Shelf Model / Identifier Expiration Serial / Date Lot Xenosure Biological Patch PATCH Left: Arm [employer] 03/25/2023 E0.8P8 / Implanted: Qty: 1 on 10/07/2017 by Leonard Echeverria MD at [facility] [id number] / [id number] documented as of this encounter Results Not on filedocumented in this encounter Insurance Payer Benefit Plan / Subscriber ID Effective Phone Address T [facility] Group Dates UNIQUE CALHOUN xxxxxxxxx 2011-Julian [place] [address] MANAGED MEDICAID [place] documented as of this encounter
--- OUTSIDE RECORDS SUMMARY | 2020-06-11 22:11 | XMS REPORT | Summary of Care ---
:1960 Author Organization [facility] Address [address] [place] [address] Care Team Providers Name Role Phone Ventura Camarena Medicaid Hmo Bianca Choudhury MD Primary Care Provider [phone] Reason for Visit Reason Comments Orders need orders, and clinic note s Encounter Details Date Type Department Care Team Description 05/01/2020 Telephone [facility] Pediatric Brigido Aguila MD Orders (need orders, and Adult Primary [address] and clinic notes) [facility] [place] [place] [address], [place] [address] [place] [address] Allergies Active Allergy Reactions Severity Noted Date Comments Penicillins Hives 06/14/2016 documented as of this encounter (statuses as of 05/09/2020) Medications Medication Sig Dispensed Refills Start Date [...] as of this encounter (statuses as of 05/09/2020) Active Problems Problem Noted Date Seasonal allergic rhinitis, unspecified trigger 2019 Tobacco dependence 05/01/2020 Hospital discharge follow-up 05/01/2020 Arteriovenous fistula stenosis, subsequent encounter 1 11/28/2016 Overview: Added automatically from request for min danii [id number] Obesity (BMI 30-39.9) 08/02/2017 ESRD needing dialysis 07/18/2017 Overview: Added automatically from request for min danii [id number] Elevated serum lactate dehydrogenase 02/11/2017 Essential hypertension 09/03/2016 Type 2 diabetes mellitus with other specified complica tion 07/16/2016 ACC/AHA stage B congestive heart failure 07/07/2016 Chronic diastolic heart failure 07/07/2016 MOE (dyspnea on exertion) 07/07/2016 Edema of both legs 06/21/2016 HTN (hypertension) 06/14/2016 Bipolar 1 disorder documented as of this encounter (statuses as of 05/09/2020) Resolved Problems Problem Noted Date Resolved Date Acute kidney injury (nontraumatic) 06/14/201607/16 UTI (urinary tract infection) 06/14/2016 07/16/2016 DM (diabetes mellitus) 06/14/2016 07/16/2016 documented as of this encounter (statuses as of 05/09/2020) Immunizations Name Administration Dates Next Due Influenza [...] Office Visit Family Medicine Brigido Aguila MD [address] [place] [address] Dr [address] [place] [address] 15 [phone] Health Maintenance Due Date Last Done Comments [...] of this encounter Implants Implanted Type Area Event Set Up Specialist Device Shelf Model / Identifier Expiration Serial / Date Lot Xenosure Biological Patch PATCH Left: Arm [employer] 03/25/2023 E0.8P8 / Implanted: Qty: 1 on 10/07/2017 by Leonard Echeverria MD at [facility] [id number] / [id number] documented as of this encounter Results Not on filedocumented in this encounter Insurance Payer Benefit Plan / Subscriber ID Effective Phone Address T [facility] Group Dates UNIQUE CALHOUN xxxxxxxxx 2011-Julian [place] [address] MANAGED MEDICAID [place] documented as of this encounter
--- OUTSIDE RECORDS SUMMARY | 2020-06-11 22:11 | XMS REPORT | Summary of Care ---
:1960 Author Organization [facility] Address [address] [place] [address] Care Team Providers Name Role Phone Ventura Camarena Medicaid Hmo Bianca Choudhury MD Primary Care Provider [phone] Reason for Visit Reason Comments TEST RESULTS Encounter Details Date Type Department Care Team Description 05/09/2020 Telephone [facility] Pediatric and Brigido Proctor MD TEST RESULTS Adult Primary Care- [address] [facility] 205 146 [place] [address] [address] [place] [address] [phone] Allergies Active Allergy Reactions Severity Noted Date [...] Added automatically from request for min danii [id number] Obesity (BMI 30-39.9) 08/02/2017 ESRD needing dialysis 07/18/2017 Overview: Added automatically from request for min danii [id number] Elevated serum lactate dehydrogenase 02/11/2017 Essential hypertension [...] Office Visit Family Medicine Brigido Aguila MD [address] [place] [address] Dr Baumann [address] [place] [address] 15 [phone] Health Maintenance Due Date Last Done Comments [...] of this encounter Implants Implanted Type Area Correctional Lieutenant Device Shelf Model / Identifier Expiration Serial / Date Lot Xenosure Biological Patch PATCH Left: Arm Lemait[employer] 03/25/2023 E0.8P8 / Implanted: Qty: 1 on 10/07/2017 by Leonard Echeverria MD at [facility] [id number] / [id number] documented as of this encounter Results Not on filedocumented in this encounter Insurance Payer Benefit Plan / Subscriber ID Effective Phone Address T [facility] Group Dates UNIQUE CALHOUN xxxxxxxxx 2011-Julian P [address] BOX Medic [facility] [address] MANAG[place] MED[place] documented as of this encounter
[2020-06-11] MEDS ORDERED: FUROSEMIDE 20 MG/ 2ML VIAL ONE (22:27)
[2020-06-11] MEDS ORDERED: NITROGLYCERIN 1 GM PKT TD ONE (22:27)
[2020-06-11] MEDS ORDERED: FUROSEMIDE 40 MG/4 ML VIAL ONE (22:27)
[2020-06-11 23:19] LABS: Absolute Lymphocytes (CBC) 1.3 K/uL (0.7-4.9); Basophils % 0.4 % (0-1.3); Hematocrit 33.6 % (36.0-45.0); Lymphocytes % 14.7 % (15.3-44.8); MPV 8.5 fL (7.6-11.3); Protime INR 0.98
[2020-06-11] MEDS ORDERED: ACETAMINOPHEN 325 MG TABLET ONE (23:27)
[2020-06-12 00:04] LABS: ALT/SGPT 18 U/L (12-78); AST/SGOT 22 U/L (15-37); Albumin 3.4 g/dL (3.4-5.0); Alkaline Phosphatase 87 U/L (45-117); BUN Blood Urea Nitrogen 106 mg/dL (7-18); Bicarbonate 17 mmol/L (21-32); Bilirubin Direct 0.2 mg/dL (0-0.2); Bilirubin Total 0.5 mg/dL (0.2-1.0); Glucose Level 83 mg/dL (74-106); Magnesium 2.6 mg/dL (1.8-2.4); NT PRO-BNP 24301 pg/mL (<125); Protein, Total 8.4 g/dL (6.4-8.2); Sodium Level 133 mmol/L (136-145); Troponin (Emerg Dept Use Only) < 0.02 ng/mL (0.0-0.045)
--- NOTE | 2020-06-12 00:08 | ER ---
Nurse's Notes [facility] Name: Dennise Harris Age: 60 yrs Sex: Female : 1960 Arrival Date: 06/11/2020 Time: 22:06 Bed 5 Private MD: Diagnosis: Dyspnea;Diarrhea, unspecified;End stage renal disease-on HD T, Th, Sat;Unspecified combined systolic (congestive) and diastolic (congestive) heart failure;Essential (primary) hypertension;Hyperkalemia;Urinary tract infection, site not specified Presentation: 06/11 22:06 Chief complaint: EMS states: SHE DOES HD THREE X A WEEK, SHE MISSED DIALYSIS LAST rv TUESDAY BECAUSE OF DIARRHEA. STARTED HAVING SOB YESTERDAY. DENIES FEVER AND PAIN. Coronavirus screen: Surgical mask placed on patient. Patient moved to private room, placed in contact and droplet isolation with eye protection until further assessment. Patient denies a cough. Patient reports shortness of breath or difficulty breathing. Patient denies measured and/or subjective temperature greater than 100.4F prior to today's visit. Patient denies travel on a cruise ship or to a country the [facility] currently lists as an affected area. Patient denies contact with known and/or suspected case of COVID-19. Ebola Screen: No symptoms or risks identified at this time. Initial Sepsis Screen: Does the patient meet any 2 criteria?. Risk Assessment: Do you want to hurt yourself or someone else? Patient reports no desire to harm self or others. Onset of symptoms was June 10, 2020 at 08:00. 22:06 Method Of Arrival: EMS: [facility] rv 22:06 Acuity: FAWAD 3 rv 22:11 Initial Sepsis Screen: Does the patient have a suspected source of infection? Yes: rv Productive cough/pneumonia. Triage Assessment: 22:09 General: Appears comfortable, Behavior is calm, cooperative. Pain: Denies pain. EENT: rv No signs and/or symptoms were reported regarding the EENT system. Neuro: Level of Consciousness is awake, alert, obeys commands, Oriented to person, place, time, situation. Cardiovascular: Patient's skin is warm and dry. Rhythm is sinus rhythm. Respiratory: Airway is patent Respiratory effort is even, unlabored. Derm: Skin is intact. Historical: - Allergies: 22:09 PENICILLINS; rv - PMHx: 22:09 HD - Tue/Th/Sat; Hypertension; CHF; rv - Immunization history:: Adult Immunizations up to date. - Social history:: Smoking status: unknown. - Family history:: not pertinent. Screenin:10 Abuse screen: Denies threats or abuse. Denies injuries from another. Nutritional rv screening: No deficits noted. Tuberculosis screening: No symptoms or risk factors identified. Fall Risk None identified. Assessment: 22:47 General: Appears in no apparent distress. comfortable, Behavior is calm, cooperative. mg2 Pain: Denies pain. Neuro: Level of Consciousness is awake, alert, obeys commands, Oriented to person, place, time, situation. Cardiovascular: Capillary refill < 3 seconds Patient's skin is warm and dry. Respiratory: Airway is patent Respiratory effort is even, unlabored, Respiratory pattern is regular, symmetrical. GI: Reports diarrhea. : No signs and/or symptoms were reported regarding the genitourinary system. EENT: No signs and/or symptoms were reported regarding the EENT system. Derm: Skin is intact, is healthy with good turgor, Skin is pink, warm \T\ dry. normal. Musculoskeletal: Circulation, motion, and sensation intact. Capillary refill < 3 seconds. 06/12 01:35 Reassessment: patient still wheezing, patient for hospitalization and documentation to mg2 be continued in the [facility],. Vital Signs: 06/11 22:06 Weight 74.39 kg; Pain 0/10; rv 22:10 BP 170 / 86; Pulse 87; Resp 18; Pulse Ox 98% on 4 lpm NC; rv 22:46 Temp 99.3; mg2 06/12 00:25 BP 127 / 60; Pulse 88; Resp 20; Pulse Ox 98% on 4 lpm NC; mg2 01:30 BP 135 / 78; Pulse 81; Resp 18; Temp 99; Pulse Ox 98% on 4 lpm NC; mg2 02:00 BP 161 / 82; Pulse 79; Resp 18; Pulse Ox 98% on R/A; mg2 05:03 BP 169 / 82; Pulse 82; Resp 18; Pulse Ox 98% on 4 lpm NC; Weight 74.39 kg; mg2 06:57 BP 160 / 74; Pulse 81; Resp 18; Temp 98.7; Pulse Ox 98% on 4 lpm NC; mg2 ED Course: 06/11 22:06 Patient arrived in ED. rv 22:07 Andrew Rojo MD is Attending Physician. dionne 22:08 Héctor Dsouza RN is Primary Nurse. mg2 22:08 Triage completed. rv 22:09 Arm band placed on Patient placed in the treatment room, on a stretcher, Patient rv notified of wait time. 22:11 Patient has correct armband on for positive identification. road train driver on. Pulse rv ox on. NIBP on. 22:46 No provider procedures requiring assistance completed. Inserted saline lock: 20 gauge mg2 in right wrist, using aseptic technique. Blood collected. 23:53 XRAY Chest (1 view) In Process Unspecified. EDMS 06/12 00:06 Ousmane Hameed MD is Hospitalizing Provider. dionne 00:19 Notified ED physician of a critical lab result(s). K 6.7, Creat 10.1. sg 07:20 Héctor Dsouza RN is Primary Nurse. mg2 07:21 Primary Nurse role handed off by Héctor Dsouza RN rb1 07:21 Amy Basurto RN is Primary Nurse. rb1 10:24 No provider procedures requiring assistance completed. Patient admitted, IV remains in rb1 place. Administered Medications: 06/11 22:25 Drug: Nitro-Bid Ointment 2 % 1 inches Route: Transdermal; Site: anterior chest wall; mg2 22:45 Drug: Lasix 60 mg Route: IVP; Site: right wrist; mg2 23:37 Drug: Tylenol 650 mg Route: PO; mg2 06/12 00:14 Drug: Decadron - Dexamethasone 6 mg Route: IVP; Site: right hand; rv 00:14 Drug: Rocephin 1 grams Route: IV; Rate: per protocol; Site: right hand; rv 00:14 Drug: Zithromax 500 mg Route: IVPB; Infused Over: 1 hrs; Site: right hand; rv 00:46 CANCELLED (Duplicate Order): Calcium Gluconate 1 grams IVPB once over 60 mins; (mix in dionne NS 100 mL) 01:06 Drug: Lasix 40 mg Route: IVP; Site: right forearm; mg2 01:08 Drug: Sodium Bicarbonate 1 amp Route: IVP; Site: right wrist; mg2 01:08 Drug: Kayexalate 60 grams Route: PO; mg2 01:08 Drug: D50W 50 ml Route: IVP; Site: right wrist; mg2 01:08 Drug: Calcium Gluconate 1 grams Route: IVPB; Infused Over: 60 mins; Site: right wrist; mg2 01:09 Drug: Insulin Regular Human 10 units {Co-Signature: rv (Guevara Price RN).} Route: mg2 IVP; Site: right wrist; 01:09 Drug: Albuterol - atroVENT (3:1) (2.5 mg - 0.5 mg) 3 ml Route: Nebulizer; mg2 01:34 Drug: morphine 2 mg Route: IVP; Site: right wrist; mg2 01:34 Drug: Zofran (Ondansetron) 4 mg Route: IVP; Site: right wrist; mg2 Outcome: 00:07 Decision to Hospitalize by Provider. [facility] 10:24 Patient left the ED. iw 10:24 Admitted to Tele accompanied by tech, via wheelchair, room 413, with chart, Report rb1 called to YESSI Eubanks 10:24 Condition: stable 10:24 Instructed on the need for admit. Signatures: Dispatcher [employer] EDJean Rios, RN Andrew Romano MD MD cha Williams, Irene, RN YESSI iw Amy Basurto RN RN rb1 Héctor Dsouza RN RN mg2 Vicente, Ronaldo, RN RN rv Ronaldo Vicente RN rv Corrections: (The following items were deleted from the chart) 12:53 12:48 Admitted to Tele accompanied by tech, via wheelchair, with chart, rb1 rb1 12:56 10:24 Admitted to Tele accompanied by tech, via wheelchair, with chart, Report called rb1 to YESSI Eubanks rb1
--- NOTE | 2020-06-12 00:08 | EDPHYS ---
Physician Documentation [facility] Name: Dennise Harris Age: 60 yrs Sex: Female : 1960 Arrival Date: 06/11/2020 Time: 22:06 Bed 5 Private MD: ED Physician Andrew Rojo HPI: 06/11 22:16 This 60 yrs old Black Female presents to ER via EMS with complaints of sob, missed dionne dialysis. 22:16 The patient has shortness of breath at rest, with light activity. Onset: The dionne symptoms/episode began/occurred 2 day(s) ago. Duration: The symptoms are continuous, and are steadily getting worse. The patient's shortness of breath is aggravated by coughing, exertion, light activity, prone position, supine position. The patient presents to the emergency department with diarrhea. Onset: The symptoms/episode began/occurred 2 day(s) ago. Possible causes: unknown. Associated signs and symptoms: Pertinent positives: non-productive cough. The patient or guardian reports cough, difficulty breathing. Historical: - Allergies: 22:09 PENICILLINS; rv - PMHx: 22:09 HD - Tue//Tue; Hypertension; CHF; rv - Immunization history:: Adult Immunizations up to date. - Social history:: Smoking status: unknown. - Family history:: not pertinent. ROS: 22:16 Constitutional: Negative for fever, chills, and weight loss, Eyes: Negative for injury, dionne pain, redness, and discharge, ENT: Negative for injury, pain, and discharge, Neck: Negative for injury, pain, and swelling, Cardiovascular: Negative for chest pain, palpitations, and edema, Abdomen/GI: Negative for abdominal pain, nausea, vomiting, diarrhea, and constipation, Back: Negative for injury and pain, : Negative for injury, bleeding, discharge, and swelling, Skin: Negative for injury, rash, and discoloration, Neuro: Negative for headache, weakness, numbness, tingling, and seizure, Psych: Negative for depression, anxiety, suicide ideation, homicidal ideation, and hallucinations, Allergy/Immunology: Negative for hives, rash, and allergies, Endocrine: Negative for neck swelling, polydipsia, polyuria, polyphagia, and marked weight changes, Hematologic/Lymphatic: Negative for swollen nodes, abnormal bleeding, and unusual bruising. 22:16 Respiratory: Positive for cough, shortness of breath, at rest. 22:16 MS/extremity: Positive for swelling, of the right leg and left leg. Exam: 22:16 Constitutional: This is a well developed, well nourished patient who is awake, alert, dionne and in no acute distress. Head/Face: Normocephalic, atraumatic. Eyes: Pupils equal round and reactive to light, extra-ocular motions intact. Lids and lashes normal. Conjunctiva and sclera are non-icteric and not injected. Cornea within normal limits. Periorbital areas with no swelling, redness, or edema. ENT: Nares patent. No nasal discharge, no septal abnormalities noted. Tympanic membranes are normal and external auditory canals are clear. Oropharynx with no redness, swelling, or masses, exudates, or evidence of obstruction, uvula midline. Mucous membranes moist. Chest/axilla: Normal chest wall appearance and motion. Nontender with no deformity. No lesions are appreciated. Cardiovascular: Regular rate and rhythm with a normal S1 and S2. No gallops, murmurs, or rubs. Normal PMI, no JVD. No pulse deficits. Abdomen/GI: Soft, non-tender, with normal bowel sounds. No distension or tympany. No guarding or rebound. No evidence of tenderness throughout. Back: No spinal tenderness. No costovertebral tenderness. Full range of motion. Female : Normal external genitalia. Skin: Warm, dry with normal turgor. Normal color with no rashes, no lesions, and no evidence of cellulitis. Neuro: Awake and alert, GCS 15, oriented to person, place, time, and situation. Cranial nerves II-XII grossly intact. Motor strength 5/5 in all extremities. Sensory grossly intact. Cerebellar exam normal. Normal gait. Psych: Awake, alert, with orientation to person, place and time. Behavior, mood, and affect are within normal limits. 22:16 Neck: External neck: is normal, no acute changes. 22:16 Chest/axilla: Inspection: normal, Palpation: is normal, no acute changes, Axilla: are normal, no acute changes. 22:16 Respiratory: mild respiratory distress is noted, Respirations: labored breathing, that is mild, Breath sounds: bronchial sounds, decreased breath sounds, rhonchi, Respiratory rate: 20 22:16 Musculoskeletal/extremity: Extremities: grossly normal except: swelling, ROM: full active range of motion, full passive range of motion, Circulation is intact in all extremities. Sensation intact. Compartment Syndrome exam of affected extremity: is normal. DVT Exam: no pain, no tenderness, negative Homans' sign noted on exam, no appreciated bluish discoloration, no erythema, no increased warmth, swelling. 06/12 00:50 ECG was reviewed by the Attending Physician. [facility] Vital Signs: 06/11 22:06 Weight 74.39 kg; Pain 0/10; rv 22:10 BP 170 / 86; Pulse 87; Resp 18; Pulse Ox 98% on 4 lpm NC; rv 22:46 Temp 99.3; mg2 06/12 00:25 BP 127 / 60; Pulse 88; Resp 20; Pulse Ox 98% on 4 lpm NC; mg2 01:30 BP 135 / 78; Pulse 81; Resp 18; Temp 99; Pulse Ox 98% on 4 lpm NC; mg2 02:00 BP 161 / 82; Pulse 79; Resp 18; Pulse Ox 98% on R/A; mg2 05:03 BP 169 / 82; Pulse 82; Resp 18; Pulse Ox 98% on 4 lpm NC; Weight 74.39 kg; mg2 06:57 BP 160 / 74; Pulse 81; Resp 18; Temp 98.7; Pulse Ox 98% on 4 lpm NC; mg2 MDM: 06/11 22:07 Patient medically screened. [facility] 22:21 Data reviewed: vital signs, nurses notes, lab test result(s), EKG, radiologic studies, [facility] plain films. 06/12 00:00 Differential diagnosis: asthma, Bronchitis CHF exacerbation, Chronic Obstructive dionne Pulmonary Disease viral gastroenteritis, gastroenteritis, pneumonia, pulmonary edema, reactive airway disease, Unstable Angina. Antibiotic administration: Not indicated. The patient's Wells Deep Vein Thrombosis Score was calculated as follows: Total Score: 0-2 Pts- Low Risk. Differential Diagnosis: Bronchitis Influenza Upper Respiratory Infection Asthma Exacerbation Viral Syndrome Pneumonia. The patient's pulmonary embolism risk score was calculated as follows: Total Score: 0-2 points. This patient was found to be at low risk for a pulmonary embolism by using the Well's assessment criteria. Immunization status: Influenza vaccine: Data interpreted: ekg monitor tech: rate is 87 beats/min, rhythm is regular. Test interpretation: by ED physician or midlevel provider: ECG, plain radiologic studies. Counseling: I had a detailed discussion with the patient and/or guardian regarding: the historical points, exam findings, and any diagnostic results supporting the discharge/admit diagnosis, lab results, radiology results, the need for further work-up and treatment in the hospital. ED course: explained all labs and findings, will admit to dr freeman, dr freeman agrees. 00:47 ED course: hyperkalemic treatment began. dionne 02:50 ED course: repeat potassium is 5.8. [facility] 06/11 22:15 Order name: Basic Metabolic Panel; Complete Time: 00:43 [facility] 06/11 22:15 Order name: CBC with Diff; Complete Time: 23:59 [facility] 06/11 22:15 Order name: LFT's; Complete Time: 00:43 [facility] 06/11 22:15 Order name: Magnesium; Complete Time: 00:43 [facility] 06/11 22:15 Order name: NT PRO-BNP; Complete Time: 00:43 [facility] 06/11 22:15 Order name: PT-INR; Complete Time: 23:59 [facility] 06/11 22:15 Order name: Troponin (emerg Dept Use Only); Complete Time: 00:43 [facility] 06/11 22:15 Order name: Blood Culture Adult (2) 06/11 22:15 Order name: Fecal Leukocyte Stain 06/11 22:15 Order name: Stool Culture [facility] 06/11 22:15 Order name: COVID-19 [facility] 06/11 22:50 Order name: Lactate; Complete Time: 00:43 [facility] 06/11 22:50 Order name: Procalcitonin; Complete Time: 02:35 [facility] 06/12 00:49 Order name: Chem 7: at 2 am [facility] 06/11 22:15 Order name: XRAY Chest (1 view) [facility] 06/12 01:40 Order name: Urine Culture [facility] 06/12 01:50 Order name: Urine Dipstick--Ancillary (enter results) 06/11 22:15 Order name: EKG; Complete Time: 22:16 [facility] 06/11 22:15 Order name: Cardiac monitoring; Complete Time: 22:45 [facility] 06/11 22:15 Order name: EKG - Nurse/Tech; Complete Time: 22:45 [facility] 06/11 22:15 Order name: IV Saline Lock; Complete Time: 22:45 [facility] 06/11 22:15 Order name: Labs collected and sent; Complete Time: :46 [facility] 06/11 22:15 Order name: O2 Per Protocol; Complete Time: :46 [facility] 06/11 22:15 Order name: O2 Sat Monitoring; Complete Time: :46 [facility] 06/12 02:40 Order name: CONS Pharmacy Consult EDMS 06/12 02:40 Order name: CONS Physician Consult EDMS 06/12 02:40 Order name: Renal EDMS EC:50 Rate is 86 beats/min. Rhythm is regular. QRS [place] is Normal. HI interval is normal. QRS dionne interval is normal. QT interval is normal. No Q waves. T waves are Peaked in leads II, III, aVF, V2, V3, V4, V5. No ST changes noted. Clinical impression: Suggests hyperkalemia. Interpreted by me. Reviewed by me. Administered Medications: 06/11 22:25 Drug: Nitro-Bid Ointment 2 % 1 inches Route: Transdermal; Site: anterior chest wall; mg2 22:45 Drug: Lasix 60 mg Route: IVP; Site: right wrist; mg2 23:37 Drug: Tylenol 650 mg Route: PO; mg2 06/12 00:14 Drug: Decadron - Dexamethasone 6 mg Route: IVP; Site: right hand; rv 00:14 Drug: Rocephin 1 grams Route: IV; Rate: per protocol; Site: right hand; rv 00:14 Drug: Zithromax 500 mg Route: IVPB; Infused Over: 1 hrs; Site: right hand; rv 00:46 CANCELLED (Duplicate Order): Calcium Gluconate 1 grams IVPB once over 60 mins; (mix in [facility] NS 100 mL) 01:06 Drug: Lasix 40 mg Route: IVP; Site: right forearm; mg2 01:08 Drug: Sodium Bicarbonate 1 amp Route: IVP; Site: right wrist; mg2 01:08 Drug: Kayexalate 60 grams Route: PO; mg2 01:08 Drug: D50W 50 ml Route: IVP; Site: right wrist; mg2 01:08 Drug: Calcium Gluconate 1 grams Route: IVPB; Infused Over: 60 mins; Site: right wrist; mg2 01:09 Drug: Insulin Regular Human 10 units {Co-Signature: rv (Guevara Price RN).} Route: mg2 IVP; Site: right wrist; 01:09 Drug: Albuterol - atroVENT (3:1) (2.5 mg - 0.5 mg) 3 ml Route: Nebulizer; mg2 :34 Drug: morphine 2 mg Route: IVP; Site: right wrist; mg2 :34 Drug: Zofran (Ondansetron) 4 mg Route: IVP; Site: right wrist; mg2 Disposition: 06/12/20 00:07 Hospitalization ordered by Ousmane Freeman for Inpatient Admission. Preliminary diagnosis are Dyspnea, Diarrhea, unspecified, End stage renal disease - on HD T, Th, Sat, Unspecified combined systolic (congestive) and diastolic (congestive) heart failure, Essential (primary) hypertension, Hyperkalemia, Urinary tract infection, site not specified. - Bed requested for Telemetry/MedSurg (Inpatient). - Status is Inpatient Admission. iw - Condition is Fair. - Problem is new. - Symptoms have improved. Signatures: Dispatcher [employer] EDMS Andrew Rojo MD MD cha Williams, Irene, RN RN Flory Ibarra RN RN Héctor Dsouza RN RN [facility] Guevara Price RN RN rv Guevara Price RN rv Corrections: (The following items were deleted from the chart) 00:46 00:45 Calcium Gluconate 1 grams IVPB once over 60 mins; (mix in NS 100 mL) ordered. [facility] 00:48 00:07 Hospitalization Ordered by Ousmane Freeman MD for Inpatient Admission. Preliminary [facility] diagnosis is Dyspnea; Diarrhea, unspecified; End stage renal disease; Unspecified combined systolic (congestive) and diastolic (congestive) heart failure; Essential (primary) hypertension. Bed requested for Telemetry/MedSurg (Inpatient). Status is Inpatient Admission. Condition is Fair. Problem is new. Symptoms have improved. [facility] 01:11 00:48 06/12/2020 00:07 Hospitalization Ordered by Ousmane Freeman MD for Inpatient cg Admission. Preliminary diagnosis is Dyspnea; Diarrhea, unspecified; End stage renal disease - on HD T, Th, Sat; Unspecified combined systolic (congestive) and diastolic (congestive) heart failure; Essential (primary) hypertension; Hyperkalemia. Bed requested for Telemetry/MedSurg (Inpatient). Status is Inpatient Admission. Condition is Fair. Problem is new. Symptoms have improved. dionne 01:40 01:11 06/12/2020 00:07 Hospitalization Ordered by Ousmane Freeman MD for Inpatient dionne Admission. Preliminary diagnosis is Dyspnea; Diarrhea, unspecified; End stage renal disease - on HD T, Th, Sat; Unspecified combined systolic (congestive) and diastolic (congestive) heart failure; Essential (primary) hypertension; Hyperkalemia. Bed requested for [facility] ER HOLD. Status is Inpatient Admission. Condition is Fair. Problem is new. Symptoms have improved. 06:55 01:40 06/12/2020 00:07 Hospitalization Ordered by Ousmane Freeman MD for Inpatient cg Admission. Preliminary diagnosis is Dyspnea; Diarrhea, unspecified; End stage renal disease - on HD T, Th, Sat; Unspecified combined systolic (congestive) and diastolic (congestive) heart failure; Essential (primary) hypertension; Hyperkalemia; Urinary tract infection, site not specified. Bed requested for [facility] ER HOLD. Status is Inpatient Admission. Condition is Fair. Problem is new. Symptoms have improved. [facility] 10:24 06:55 06/12/2020 00:07 Hospitalization Ordered by Ousmane Freeman MD for Inpatient iw Admission. Preliminary diagnosis is Dyspnea; Diarrhea, unspecified; End stage renal disease - on HD T, Th, Sat; Unspecified combined systolic (congestive) and diastolic (congestive) heart failure; Essential (primary) hypertension; Hyperkalemia; Urinary tract infection, site not specified. Bed requested for Telemetry/MedSurg (Inpatient). Status is Inpatient Admission. Condition is Fair. Problem is new. Symptoms have improved.
[2020-06-12] MEDS ORDERED: dexAMETHasone 10 MG/ML VIAL ONE (00:18)
[2020-06-12] MEDS ORDERED: NA CHLORIDE 0.9% 250 ML ONE (00:18)
[2020-06-12] MEDS ORDERED: CEFTRIAXONE/SWI 1gm 1 GM/10 ML SYR ONE (00:18)
[2020-06-12] MEDS ORDERED: AZITHROMYCIN 500 MG INJ IVPB ONE (00:18)
[2020-06-12 00:19] LABS: Potassium 6.7 mmol/L (3.5-5.1)
[2020-06-12] MEDS ORDERED: INSULIN -REGULAR HUMAN 50 UNIT/0.5 ML ML ONE (01:03)
[2020-06-12] MEDS ORDERED: SOD POLYSTYREN SUL 15 GM/60 ML UCUP ONE (01:03)
[2020-06-12] MEDS ORDERED: FUROSEMIDE 40 MG/4 ML VIAL ONE (01:03)
[2020-06-12] MEDS ORDERED: CALCIUM GLUCONATE 1 GM IVPB 1 GM/50 ML BAG IV ONE (01:04)
[2020-06-12] MEDS ORDERED: D50W 25 GM/50 ML SYRINGE/VIAL IV ONE (01:04)
[2020-06-12] MEDS ORDERED: SODIUM BICARB 50 MEQ/50ML VIAL ONE (01:04)
[2020-06-12] MEDS ORDERED: ALBUTEROL 2.5 MG/3 ML NEB SOL ONE (01:14)
[2020-06-12] MEDS ORDERED: ONDANSETRON 4 MG/2 ML VIAL ONE (01:33)
[2020-06-12] MEDS ORDERED: MORPHINE 4 MG/ML SYR ONE (01:33)
[2020-06-12] MEDS ORDERED: ONDANSETRON 4 MG/2 ML VIAL IV PRN (02:37)
[2020-06-12] MEDS ORDERED: ACETAMINOPHEN 500 MG TAB PO PRN (02:37)
[2020-06-12] MEDS ORDERED: MORPHINE 2 MG/ML SYR IV PRN (02:37)
[2020-06-12 02:51] LABS: Potassium 5.8 mmol/L (3.5-5.1)
[2020-06-12 04:56] LABS: Urine Blood 2+ (NEG); Urine Glucose TRACE (NEG); Urine Protein 3+ (NEG); Urine pH 7.5 (5.0-7.0)
[2020-06-12 05:15] VITALS: BMI 28.1
--- NOTE | 2020-06-12 08:22 | RAD REPORT ---
EXAM DESCRIPTION: RAD - Chest Single View - 06/11/2020 11:52 pm CLINICAL HISTORY: Cough;Dyspnea COMPARISON: Portable April 28 TECHNIQUE: AP portable chest image was obtained 06/11/2020 11:52 pm . FINDINGS: Lung volumes are low. Interstitial and alveolar opacities are present. Mild cardiomegaly a nd vascular engorgement present. Dialysis catheter is in place on the right. No pneumothorax. Pleural fluid is minimal or absent. Pleural effusion has reduced since April 28. No acute bony abnormality see n. No acute aortic findings suspected. IMPRESSION: Mild CHF/volume overload
[2020-06-12] MEDS ORDERED: PNEUMOCOCCAL VACCINE 0.5 ML IMVAC ONE (09:00)
[2020-06-12] MEDS ORDERED: NA CHLORIDE 0.9% 1,000 ML IV PRN (09:56)
[2020-06-12] MEDS ORDERED: MANNITOL 25% 12.5 GM/50 ML VIAL IV PRN (09:56)
[2020-06-12] MEDS ORDERED: ALBUMIN HUMAN 25% 50 ML IV SCH (10:00)
[2020-06-12] MEDS ORDERED: HYDRALAZINE HCL 20 MG/ML VIAL IV ONE (12:25)
[2020-06-12] MEDS ORDERED: cloNIDine HCL 0.1 MG TAB PO ONE (12:26)
--- NOTE | 2020-06-12 12:46 | P.HP ---
Certification for Inpatient Patient admitted to: Observation With expected LOS: <2 Midnights Patient will require the following post-hospital care: None Practitioner: I am a practitioner with admitting privileges, knowledge of patient current condition, hospital course, and medical plan of care. Services: Services provided to patient in accordance with Admission requirements found in Title 42 Section 412.3 of the Code of Federal Regulations Patient History Date of Service: 06/12/20 Reason for admission: NAUSEA AND VOMITING; DIARRHEA History of Present Illness: PATIENT IS A 60YO WHO WAS ADMITTED TO THE HOSPITAL WITH NAUSEA VOMITING AND DIARRHEA. PATIENT HAS BEEN SICK FOR 48 HOURS. SHE HAS MISSED HEMODIALYSIS ON 2 DIFFERENT OCCASIONS. SHE WAS FEELING SHORT OF BREATH AND THAT IS WHAT BROUGHT HER INTO THE EMERGENCY ROOM. IN THE ER HER CHEST X-RAY DID REVEAL PULMONARY EDEMA AND HYPERKALEMIA. SHE SAYS HER DIARRHEA HAS IMPROVED. NO MORE NAUSEA AND VOMITING. SHE WILL BE ADMITTED TO THE HOSPITAL FOR FURTHER WORKUP. IN THE EMERGENCY ROOM SHE WAS GIVEN KAYEXALATE SOCIAL PROBABLY HAVE SOME MORE DIARRHEA AT THIS TIME. WE WILL MONITOR HER CLOSELY AND MAY NEED STOOL STUDIES IF THIS IS PERSISTENT. Allergies Penicillins Adverse Reaction (Mild, Verified 03/30/19 11:43) SWELLING Home Medications: Amlodipine [Norvasc*] 10 mg PO [id number] 01/30/19 carvediloL [Coreg*] 25 mg PO BID 01/30/19 ramipriL [Altace*] 10 mg PO BEDTIME #60 cap 04/29/20 - Past Medical/Surgical History Has patient received pneumonia vaccine in the past: No Diabetic: Yes -: kidney issues -: HTN -: NIDDM -: Bladder issues -: Cataracts -: knee sx -: stunt placement in arm - Family History Mother Medical History: Hypertension, Diabetes, Kidney disease - Social History Smoking Status: Current every day smoker Alcohol use: Yes CD- Drugs: No Caffeine use: Yes Place of Residence: Home Review of Systems 10-point ROS is otherwise unremarkable Physical Examination - Vital Signs Temperature: 98.7 F Blood Pressure: 214/112 Pulse: 87 Respirations: 18 Pulse Ox (%): 100 - Physical Exam General: Alert, In no apparent distress, Oriented x3 HEENT: Atraumatic, PERRLA, Mucous membr. moist/pink, EOMI, Sclerae nonicteric Neck: Supple, 2+ carotid pulse no bruit, No LAD, Without JVD or thyroid abnormality Respiratory: Clear to auscultation bilaterally, Normal air movement Cardiovascular: Regular rate/rhythm, Normal S1 S2, No murmurs Gastrointestinal: Normal bowel sounds, Soft and benign, No rebound, No guarding, Distended, Tenderness Musculoskeletal: No clubbing, No swelling, No tenderness Integumentary: No rashes Neurological: Normal strength at 5/5 x4 extr, Sensation intact, Cranial nerves 3-12 intact, Normal affect Lymphatics: No axilla or inguinal lymphadenopathy - Studies Laboratory Data (last 24 hrs) 06/12/20 02:18: Sodium 134 L, Potassium 5.8 H*, BUN 108 H, Creatinine 10.50 H*, Glucose 63 L 06/11/20 22:40: PT 11.6, INR 0.98 06/11/20 22:40: WBC 8.9, Hgb 11.2 L, Hct 33.6 L, Plt Count 197 06/11/20 22:40: Sodium 133 L, Potassium 6.7 H*, BUN 106 H, Creatinine 10.10 H*, Glucose 83, Magnesium 2.6 H, Total Bilirubin 0.5, AST 22, ALT 18, Alkaline Phosphatase 87 Microbiology Data (last 24 hrs): 06/11/20 22:40 Nasopharnyx Coronavirus COVID-19 PCR - Final Assessment & Plan - Problems (Diagnosis) (1) Viral gastroenteritis Current Visit: Yes Status: Acute (2) ESRD (end stage renal disease) Current Visit: Yes Status: Acute (3) Fluid overload Current Visit: Yes Status: Acute - Plan PLAN: 1. IV FLUIDS AND IV ANTIBIOTICS 2. STOOL STUDIES 3. NEPHROLOGY CONSULTATION FOR EMERGENT HEMODIALYSIS 4. PAIN CONTROL 5. REPEAT POTASSIUM LEVEL 6. REPEAT ABDOMINAL FILM IF PAIN WORSENS TO RULE OUT PERFORATION 7. GI AND DVT PROPHYLAXIS Discharge Plan: Home Plan to discharge in: Greater than 2 days - Advance Directives Does patient have a Living Will: No Does patient have a Durable POA for Healthcare: No - Code Status/Comfort Care Code Status Assessed: Yes Code Status: Full Code Critical Care: No Time Spent Managing PTS Care (In Minutes): 45
[2020-06-12] MEDS ORDERED: HYDRALAZINE HCL 20 MG/ML VIAL IV PRN (14:00)
[2020-06-12] MEDS: carvediloL 25 MG TAB PO SCH ×2 (17:56→22:23)
--- NOTE | 2020-06-12 19:58 | P.CNS ---
Date of Consult: 06/12/20 Reason for Consult: ESRD/ CHF Requesting Physician: Ousmane Hameed Chief Complaint: NAUSEA AND VOMITING; DIARRHEA History of Present Illness: PATIENT IS A 60YO WHO WAS ADMITTED TO THE HOSPITAL WITH NAUSEA VOMITING AND DIARRHEA. PATIENT HAS BEEN SICK FOR 48 HOURS. SHE HAS MISSED HEMODIALYSIS ON 2 DIFFERENT OCCASIONS. SHE WAS FEELING SHORT OF BREATH AND THAT IS WHAT BROUGHT HER INTO THE EMERGENCY ROOM. IN THE ER HER CHEST X-RAY DID REVEAL PULMONARY EDEMA AND HYPERKALEMIA. SHE SAYS HER DIARRHEA HAS IMPROVED. NO MORE NAUSEA AND VOMITING. SHE WILL BE ADMITTED TO THE HOSPITAL FOR FURTHER WORKUP. IN THE EMERGENCY ROOM SHE WAS GIVEN KAYEXALATE SOCIAL PROBABLY HAVE SOME MORE DIARRHEA AT THIS TIME. WE WILL MONITOR HER CLOSELY AND MAY NEED STOOL STUDIES IF THIS IS PERSISTENT. 22:16 This 60 yrs old Black Female presents to ER via EMS with complaints of sob, missed dionne dialysis. 22:16 The patient has shortness of breath at rest, with light activity. Onset: The dionne symptoms/episode began/occurred 2 day(s) ago. Duration: The symptoms are continuous, and are steadily getting worse. The patient's shortness of breath is aggravated by coughing, exertion, light activity, prone position, supine position. The patient presents to the emergency department with diarrhea. Onset: The symptoms/episode began/occurred 2 day(s) ago. Possible causes: unknown. Associated signs and symptoms: Pertinent positives: non-productive cough. The patient or guardian reports cough, difficulty breathing. Allergies Penicillins Adverse Reaction (Mild, Verified 03/30/19 11:43) SWELLING Home medications list reviewed: Yes Home Medications: carvediloL [Coreg*] 25 mg PO BIDWM 01/30/19 ramipriL [Altace*] 10 mg PO BEDTIME #60 cap 04/29/20 Cetirizine HCl [Zyrtec] 10 mg PO DAILY 06/12/20 Gabapentin 300 mg PO BID 06/12/20 NIFEdipine [Nifedipine ER] 90 mg PO DAILY 06/12/20 Tizanidine [Zanaflex*] 4 mg PO BID PRN 06/12/20 - Past Medical/Surgical History Diabetic: Yes -: kidney issues -: HTN -: NIDDM -: Bladder issues -: Cataracts -: knee sx -: stunt placement in arm - Family History Mother Medical History: Hypertension, Diabetes, Kidney disease - Social History Smoking Status: Unknown if ever smoked Alcohol use: Yes CD- Drugs: No Caffeine use: Yes Place of Residence: Home Review of Systems 10-point ROS is otherwise unremarkable General: Weakness, Malaise Respiratory: Shortness of Breath, SOB with Excertion Gastrointestinal: Nausea Physical Examination Temp Pulse Resp BP Pulse Ox 98.5 F 82 16 199/105 H 100 06/12/20 17:16 06/12/20 17:56 06/12/20 17:16 06/12/20 17:56 06/12/20 17:16 General: Oriented x3, Cooperative, Mild distress HEENT: Atraumatic Neck: Supple Respiratory: Diminished Cardiovascular: Regular rate/rhythm, Edema Gastrointestinal: Soft and benign, Non-distended Musculoskeletal: No clubbing, No contractures Integumentary: No rashes, No cyanosis Neurological: Normal speech Laboratory Data (last 24 hrs) 06/12/20 02:18: Sodium 134 L, Potassium 5.8 H*, BUN 108 H, Creatinine 10.50 H*, Glucose 63 L 06/11/20 22:40: PT 11.6, INR 0.98 06/11/20 22:40: WBC 8.9, Hgb 11.2 L, Hct 33.6 L, Plt Count 197 06/11/20 22:40: Sodium 133 L, Potassium 6.7 H*, BUN 106 H, Creatinine 10.10 H*, Glucose 83, Magnesium 2.6 H, Total Bilirubin 0.5, AST 22, ALT 18, Alkaline Ph osphatase 87 Imagings Data: EXAM DESCRIPTION: RAD - Chest Single View - 06/11/2020 11:52 pm CLINICAL HISTORY: Cough;Dyspnea COMPARISON: Portable April 28 TECHNIQUE: AP portable chest image was obtained 06/11/2020 11:52 pm . FINDINGS: Lung volumes are low. Interstitial and alveolar opacities are present. Mild cardiomegaly and vascular engorgement present. Dialysis catheter is in place on the right. No pneumothorax. Pleural fluid is minimal or absent. Pleural effusion has reduced since April 28. No acute bony abnormality seen. No acute aortic findings suspected. IMPRESSION: Mild CHF/volume overload Conclusions/Impression: A/ Hyponatremia Hyperkalemia Acidosis ESRD on HD HTN with CKD/ CHF Diastolic CHF, A/C. DM II with CKD. Anemia in CKD. JUANITO/ Secondary HyperPTH. P/ Continue current POC and Medications. Acute HD ordered. Restart home medications as indicated. Renal Diet. No NSAIDs. AM labs. Daily weight. Thank you kindly for the consultation. Case reviewed with Dr. Rojo.
[2020-06-12] MEDS ORDERED: ramipriL 5 MG CAP PO SCH (21:00)
[2020-06-13] MEDS ORDERED: AMLODIPINE 10 MG TAB PO SCH (06:00)
[2020-06-13 06:09] LABS: Absolute Lymphocytes (CBC) 1.2 K/uL (0.7-4.9); Basophils % 0.3 % (0-1.3); Hematocrit 28.4 % (36.0-45.0); Lymphocytes % 16.1 % (15.3-44.8); MPV 7.9 fL (7.6-11.3)
[2020-06-13 06:33] LABS: Potassium 3.6 mmol/L (3.5-5.1)
[2020-06-13] MEDS ORDERED: cloNIDine HCL 0.1 MG TAB PO ONE (09:45)
--- NOTE | 2020-06-13 09:50 | P.DS ---
Discharge Date: 06/13/20 Disposition: ROUTINE DISCHARGE Discharge Condition: GOOD Reason for Admission: NAUSEA AND VOMITING; DIARRHEA Consultations: NEPHROLOGY CONSULTATION - Problems (1) Viral gastroenteritis Current Visit: Yes Status: Acute (2) ESRD (end stage renal disease) Current Visit: Yes Status: Acute (3) Fluid overload Current Visit: Yes Status: Acute Brief History of Present Illness: PATIENT IS A 60YO WHO WAS ADMITTED TO THE HOSPITAL WITH NAUSEA VOMITING AND DIARRHEA. PATIENT HAS BEEN SICK FOR 48 HOURS. SHE HAS MISSED HEMODIALYSIS ON 2 DIFFERENT OCCASIONS. SHE WAS FEELING SHORT OF BREATH AND THAT IS WHAT BROUGHT HER INTO THE EMERGENCY ROOM. IN THE ER HER CHEST X-RAY DID REVEAL PULMONARY EDEMA AND HYPERKALEMIA. SHE SAYS HER DIARRHEA HAS IMPROVED. NO MORE NAUSEA AND VOMITING. SHE WILL BE ADMITTED TO THE HOSPITAL FOR FURTHER WORKUP. IN THE EMERGENCY ROOM SHE WAS GIVEN KAYEXALATE SOCIAL PROBABLY HAVE SOME MORE DIARRHEA AT THIS TIME. WE WILL MONITOR HER CLOSELY AND MAY NEED STOOL STUDIES IF THIS IS PERSISTENT. Hospital Course: PATIENT WAS TREATED WITH ANTIEMETICS. PATIENT WAS GIVEN DIALYSIS WELL. ELECTROLYTES ARE STABLE. PATIENT IS STARTED ON DIET AND WILL ADVANCE TOLERATED. AT THIS TIME PLAN TO DISCHARGE HOME WITH OUTPATIENT FOLLOW-UP WITH NEPHROLOGY. Vital Signs/Physical Exam: Temp Pulse Resp BP Pulse Ox 98.2 F 84 18 219/99 H 100 06/13/20 04:20 06/13/20 05:00 06/13/20 04:20 06/13/20 05:00 06/13/20 04:20 General: Alert, In no apparent distress, Oriented x3 Laboratory Data at Discharge: WBC 7.6 K/uL (4.3-10.9) D 06/13/20 05:55 Hgb 9.7 g/dL (12.0-15.0) L 06/13/20 05:55 Hct 28.4 % (36.0-45.0) L D 06/13/20 05:55 Plt Count 157 K/uL (152-406) D 06/13/20 05:55 PT 11.6 SECONDS (9.5-12.5) 06/11/20 22:40 INR 0.98 06/11/20 22:40 Sodium 137 mmol/L (136-145) 06/13/20 05:55 Potassium 3.6 mmol/L (3.5-5.1) 06/13/20 05:55 BUN 51 mg/dL (7-18) H D 06/13/20 05:55 Creatinine 6.03 mg/dL (0.55-1.3) H* D 06/13/20 05:55 Glucose 150 mg/dL (74-106) H 06/13/20 05:55 Magnesium 2.6 mg/dL (1.8-2.4) H 06/11/20 22:40 Total Bilirubin 0.5 mg/dL (0.2-1.0) 06/11/20 22:40 AST 22 U/L (15-37) 06/11/20 22:40 ALT 18 U/L (12-78) 06/11/20 22:40 Alkaline Phosphatase 87 U/L (45-117) 06/11/20 22:40 Home Medications: carvediloL [Coreg*] 25 mg PO BIDWM 01/30/19 ramipriL [Altace*] 10 mg PO BEDTIME #60 cap 04/29/20 Cetirizine HCl [Zyrtec] 10 mg PO DAILY 06/12/20 Gabapentin 300 mg PO BID 06/12/20 NIFEdipine [Nifedipine ER] 90 mg PO DAILY 06/12/20 Tizanidine [Zanaflex*] 4 mg PO BID PRN 06/12/20 Amlodipine [Norvasc*] 10 mg PO [id number] #30 tab 06/13/20 New Medications: Amlodipine [Norvasc*] 10 mg PO [id number] #30 tab Patient Discharge Instructions: OK TO DC IV AND DC HOME. FOLLOW-UP WITH PRIMARY CARE PROVIDER IN 1-2 WEEKS. FOLLOW-UP WITH NEPHROLOGY IN 1-2 WEEKS. RETURN TO THE ER IF symptoms worsen. CALL or TEXT DR. LOBO AT [phone] IF ANY QUESTIONS REGARDING HOSPITAL STAY. PLEASE CALL THE FLOOR AT [phone] IF ANY MEDICATION OR NURSING QUESTIONS. Diet: Renal Activity: Fall precautions Time spent managing pt's care (in minutes): 25
[2020-06-13] MEDS: carvediloL 25 MG TAB PO SCH (09:56)
[2020-06-13] MEDS ORDERED: NIFEDIPINE XL 90 MG TABLET PO SCH (10:05)
[2020-06-13 12:07] VITALS: TEMP 98.3
[2020-06-13 12:28] VITALS: BP 166/74
[2020-06-13 13:42] VITALS: O2SAT 98
== END 2020-06-13 14:20 | disposition home or self-care (01) ==
LOC: ER 22:05 → ERHOLD 06-12 03:05 → 4TH 06-12 09:04 → 2ND 06-13 02:27
PROVIDERS: ADMIT Hospitalist; ATTEND Hospitalist
DX: A08.4 Viral intestinal infection, unspecified (principal); N18.6 End stage renal disease; Z99.2 Dependence on renal dialysis; E87.70 Fluid overload, unspecified; R05 Cough; R06.02 Shortness of breath; Z20.828 Contact with and (suspected) exposure to other viral communicable diseases; E87.1 Hypo-osmolality and hyponatremia; E87.5 Hyperkalemia; E87.2 Acidosis; I13.2 Hypertensive heart and chronic kidney disease with heart failure and with stage 5 chronic kidney disease, or end stage renal disease; I50.33 Acute on chronic diastolic (congestive) heart failure; E11.22 Type 2 diabetes mellitus with diabetic chronic kidney disease; D63.1 Anemia in chronic kidney disease; I15.1 Hypertension secondary to other renal disorders; N39.0 Urinary tract infection, site not specified; R94.31 Abnormal electrocardiogram [ECG] [EKG]; F17.200 Nicotine dependence, unspecified, uncomplicated; Z79.899 Other long term (current) drug therapy
CPT/HCPCS: 93005; 87040 ×2; 87088; 87045; 85025 ×2; 87086; 80048 ×3; 36415 ×2; 83735; 89055; 85610; 82947; 80076; 87046; 83605; 87077; 87186; 81003; 84484; 84145; 83880; 71045; 90935; 96375; 96374; 99285; U0002; J0360 ×2; J1940 ×3; J0456; J1100; J2270; J1644; J0610; J0696; J7050; J2405; G0378 ×3

== ENCOUNTER 2020-07-10 15:49 | Inpatient (IN) | payer MEDICAID ==
--- OUTSIDE RECORDS SUMMARY | 2020-07-10 15:51 | XMS REPORT | Continuity of Care Document ---
:1960 Author Organization [facility] t Address [address] [place] [address] Care Team Providers Name Role Phone Kei, A Primary Care Physician Unavailable Mingo COOK Attending Clinician Payers Payer Name Policy Type Policy Number Effective Date Expiration Source Date [place] xxxxxxxxx [facility] Problems This patient has no known problems. Allergies, Adverse Reactions, Alerts Allergy Allergy Status Severity Reaction(s) Onset Inactive Treating Comm ents Source Name Type Date Date Clinician Penicill Drug Active Hives, [facility] ins Allergy Swelling 3- [facility] - 00:00: Medical 00 [place] Social History Social Habit Start Date Stop Date Quantity Comments Source Sex Assigned At [facility] Medications Ordered Filled Start Stop Current Ordering Indication Dosage Frequency Signature Comments Components Source Medication Medication Date Date Medication? Clinician (SIG) Name Name amLODIPine Yes 10mg QD Take [address] (NORVASC) 3-11 by mouth [facility] - 10 MG 13:39: daily. Medical tablet 50 Center carvedilol Yes 25mg Take [address] (COREG) 25 3-11 by mouth 2 Erick es - MG tablet 13:39: (two) Medical 50 times Center daily with breakfast and dinner. cholecalcif 0 Yes 1000U QD Take 1,[address] [facility] [address] jacob 3-11 Units by [facility] - (VITAMIN 13:39: mouth Medical D3) 1,000 50 daily. Center unit tablet furosemide Yes 40mg Q.5D Take [address] (LASIX) 40 3-11 by mouth 2 [facility] es - MG tablet 13:39: (two) Medical 50 times Center daily. Procedures Procedure Date / Time Performed Performing Clinician Sour e SARS-COV2/RT-PCR ([facility] 2020-06-11 22:40:00 [facility] Center Encounters Start End Encounter Admission Attending Care Care Encounter Source Date/Time Date/Time Type Type Clinicians Facility Department ID 2020-06-24 2020-06-24 Refill [facility] [id number] 00:00:00 00:00:00 Brigido Woodbine [id number] [place] [id number] Professio [phone] nal [address] [place] [address] 2020-06-23 2020-06-23 Refill [facility] [id number] 00:00:00 00:00:00 Brigido Chavo [id number] [place] [id number] Professio [phone] nal 044 [facility] 2020-05-01 2020-05-01 Telephone [facility] [id number] 00:00:00 00:00:00 Brigido Tony [id number] [place] [id number] Professio [phone] [address] Results Test Description Test Time Test Comments Results Result Comments Source SARS-CoV2/RT-PCR ([facility]) 2020-06-12 13:15:00 Test Item Value Reference Range Interpretation Comme nts SARS-COV2/RT-PCR (test code = Negative Not Detected, Negative 62519-1) SARS-COV-2 PERFORMING LAB [facility] (test code = 40697-8) ERIK (test code = ERIK) Negative result for this test determines that SARS-CoV-2 RNA was not present in the specimen above the Limit of Detection (LOD). However, Negative results do not preclude SARS-CoV-2 infection and should not be used as the sole basis for treatment or patient management decisions. Negative results must be combined with clinical observations, patient history, and epidemiological information. A false negative result may occur if a specimen is improperly collected, transported or handled. A false negative result should be considered if patient's recent exposures or clinical presentation indicate that COVID-19 (SARS-CoV-2) is likely and diagnostic tests for other causes of illness are negative. Re-testing should be considered in cases of suspected false negatives. The limit of detection for this assay is 800 copies/mL. This SARS CoV-2 test is a real-time RT-PCR test intended for the qualitative detection of nucleic acid from SARS-CoV-2 in a nasopharyngeal swab specimen collected from individuals suspected of COVID-19 by their healthcare provider. This test has not been Food and Drug Administration (FDA) cleared or approved. This is a modified version of an approved Emergency Use Authorization (EUA) and is in the process of review by the FDA. Once authorized by the FDA, the issued EUA will be effective until the declaration that circumstances exist justifying the authorization of the emergency use of in vitro diagnostic tests for detection and/or diagnosis of COVID-19 is terminated under Section 564(b)(2) of the Act or the EUA is revoked under Section 564(g) of the Act. Fact Sheet for Healthcare Providers:https://www.[employer]. [employer] ([employer])/sites/default/files/produ ct/documents/Fact_Sheet_HC_Pr hfvmwyo_Abws_YGQZ-LmL-2.pdf Fact Sheet for Healthcare Patients:https://www.[employer].Sensser /sites/default/files/produc t/documents/Fact_Sheet_Patien mg_Efbn_OKDA-QjP-9.pdf Performing Laboratory:[place] [address] [place], [place] [address] [place], [place] [address]ARS-COV2/RT-PCR ([facility])2020-06-12 13:15:00 Test Item Value Reference Range Interpretation Comments SARS-COV2/RT-PCR (test code = Negative Not Detected, Negative [id number]) SARS-COV-2 PERFORMING LAB [facility] (test code = 2411272) Negative result for this test determines that SARS-CoV-2 RNA was not present in the specimen above the Limit of Detection (LOD). However, Negative results do not preclude SARS-CoV-2 infection and should not be used as the sole basis for treatment or patient management decisions. Negative results mustbe combined with clinical observations, patient history, and epidemiological information. A false negative result may occur if a specimen is improperly collected, transported or handled. A false negative result should be considered if patient's recent exposures or clinical presentation indicate that COVID-19 (SARS-CoV-2) is likely and diagnostic tests for other causes of illness are negative. Re-testing should be considered in cases of suspected false negatives.The limit of detection for this assay is 800 copies/mL.This SARS CoV-2 test is a real-time RT-PCR test intended for the qualitative detection of nucleic acid from SARS-CoV-2 in a nasopharyngeal swab specimen collected from individuals susp ected of COVID-19 by their healthcare provider.This test has not been Food and Drug Administration (FDA) cleared or approved. This is a modified version of an approved Emergency Use Authorization (EUA) and is in the process of review by the FDA. Once authorized by the FDA, the issued EUA will be effective until the declaration that circumstances exist justifying the authorization of the emergency use of in vitro diagnostic tests for detection and/or diagnosis of COVID-19 is terminated under Section 564(b)(2) of the Act or the EUA is revoked under Section 564(g) of the Act.Fact Sheet for Healthcare Providers:https://www.[employer] ([employer])/sites/default/files/product/documents/Fact_Shee v_ZG_Bzigdmifd_Axsx_KRXF-UhF-9.pdfFact Sheet for Healthcare Patients:https://www.[employer] ([employer])/sites/default/files/product/ documents/Nkda_Fzobz_Drqwnsxx_Evmb_HJDH-RkO-5.pdfPerforming Laboratory:[place] [address], [place] [address]YJK, CV ACCESS, [id number] 17:37:00FINAL REPORT History: Renal failure, need for hemodialysis [...] control. Vital signs were monitored and remained st able. Conscious sedation and continuous patient monitoring were performed by the attending radiologist and a registered nurse for approximately 25 minutes during the procedure. Access was gained to theright internal jugular vein using ultrasound guidance and [...] MDReport Verified Date/Time: 02/07/2019 17:37:01 Reading Location: [place] [address] Angio Body Reading Room
--- OUTSIDE RECORDS SUMMARY | 2020-07-10 15:51 | XMS REPORT | Clinical Summary ---
:1960 Author Organization [facility] Address [address] [place] [address] Care Team Providers Name Role Phone Kei, A Primary Care Provider Unavailable Allergies Active Allergy [...] Encounters Date Type Specialty Care Team Description 06/12/2020 Lab Requisition Lab after 07/10/2019 Social History Tobacco Use Types Packs/Day Years Used Date Never Assessed Sex Assigned at Date Recorded Not on file Job Start Date Occupation Industry Not on file Not on file Not on file Travel History Travel Start Travel End No recent travel history available. Last Filed Vital Signs Not on file Plan of Treatment Not on file Procedures Procedure Name Priority Date/Time Associated Diagnosis Comme nts SARS-COV2/RT-PCR Routine 06/11/2020 10:40 PM Resu lts for this ([facility]) CDT procedure are in the results section. after 07/10/2019 Results SARS-CoV2/RT-PCR ([facility]) (06/11/2020 10:40 PM CDT) SARS-COV2/RT-PCR Negative Not Detected, Negative [facility] SARS-COV-2 PERFORMING LAB [facility] Specimen Other Narrative Performed At Negative result for this test determines that [facility] SARS-CoV-2 RNA was not present in the specimen above the Limit of Detection (LOD).However, Negative results do not preclude SARS-CoV-2 infection and should not be used as the sole basis for treatment or patient management decisions. Negative results must be combined with clinical observations, patient history, and epidemiological information. A false negative result may occur if a specimen is improperly collected, transported or handled.A false negative result should be considered if patient's recent exposures or clinical presentation indicate that COVID-19 (SARS-CoV-2) is likely and diagnostic tests for other causes of illness are negative.Re-testing should be considered in cases of suspected [...] Food and Drug Administration (FDA) cleared or approved.This is a modified version of an approved [...] of the Act. Fact Sheet for Healthcare Providers: https://www.weendy.com/sites/default/files/pro duct/documents/Fact_Sheet_HC_Providers_Lyra_SA RS-CoV-2.pdf Fact Sheet for Healthcare Patients: https://www.weendy.com/sites/default/files/pro duct/documents/Fact_Sheet_Patients_Lyra_SARS-C oV-2.pdf Performing Laboratory: [address] [place] [address] Performing Organization Address City/State/Zipcode Phone Number [address] [address] CENTER after 07/10/2019 Insurance Payer Benefit Plan / Group Subscriber ID Type Phone A ddress [place] xxxxxxxxx [phone]
--- OUTSIDE RECORDS SUMMARY | 2020-07-10 15:53 | XMS REPORT | Summary of Care ---
:1960 Author Organization [facility] Address [address] [place] [id number] Care Team Providers Name Role Phone Ventura Camarena Medicaid Hmo Bianca Choudhury MD Primary Care Provider [phone] Reason for Visit Reason Comments Refill Request Encounter Details Date Type Department Care Team Description 06/23/2020 Refill [facility] and Ednayak Brigido lacey MD Refill Request Adult Primary Care- [address] [facility] [address] [place], [place] [id number] [address] [place] [address] [phone] Allergies Active Allergy Reactions Severity Noted Date Comments Penicillins Hives 06/14/2016 documented as of this encounter (statuses as of 06/23/2020) Medications Medication Sig Dispensed Refills Start Date End Date Status Blood-Glucose Meter Use as 1 Kit 0 07/16/2016 Active (FREESTYLE SYSTEM directed. KIT) Brand per KitIndications: patient. Type 2 diabetes mellitus with other specified complication lancets (FREESTYLE Once daily for 30 Each 5 07/02/2017 Active LANCETS) 28 gauge DM II [facility] blood sugar Test blood 30 Strip 5 07/02/2017 Active diagnostic sugars daily (FREESTYLE INSULINX for diabetes, TEST STRIPS) strip Please give patient any brand of testing supplies she wants ERGOCALCIFEROL, Take by 0 Acti ve VITAMIN D2, mouth. (VITAMIN D ORAL) Diclofenac Sodium Take 2-4 grams 100 g 3 01/18/2019 Active (VOLTAREN) 1 % twice a day as gelIndications: needed for Chronic right pain shoulder pain, Left leg pain AMLODIPINE 10 mg TAKE 1 TABLET 30 tablet 11 08/14/2019 Active tabletIndications: BY MOUTH ONCE Essential DAILY hypertension CARVEDILOL 25 mg TAKE 1 TABLET 60 tablet 11 09/03/2019 Active tabletIndications: BY MOUTH TWICE ACC/AHA stage B DAILY WITH congestive heart MEALS failure, Essential hypertension gabapentin 300 mg Take 300 mg by 0 Active capsule mouth 2 (two) times daily. ramipril 5 mg Take 5 mg by 0 Act constantino capsule mouth at bedtime. tiZANidine 4 mg Take 4 mg by 0 A ctive capsule mouth 2 (two) times daily. CETIRIZINE 10 mg Take 1 tablet 30 tablet 0 06/23/2020 Active tabletIndications: by mouth once Seasonal allergic daily rhinitis, unspecified trigger cetirizine (ZYRTEC) Take 1 tablet 30 tablet 1 05/01/202006/23 Discontinued 10 mg by mouth tabletIndications: daily. Seasonal allergic rhinitis, unspecified trigger documented as of this encounter (statuses as of 06/23/2020) Active Problems Problem Noted Date Seasonal allergic rhinitis, unspecified trigger 2019 Tobacco dependence 05/01/2020 Hospital discharge follow-up 05/01/2020 Arteriovenous fistula stenosis, subsequent encounter 1 11/28/2016 Overview: Added automatically from request for min foy [id number] Obesity (BMI 30-39.9) 08/02/2017 ESRD needing dialysis 07/18/2017 Overview: Added automatically from request for min foy [id number] Elevated serum lactate dehydrogenase 02/11/2017 Essential hypertension 09/03/2016 Type 2 diabetes mellitus with other specified complica tion 07/16/2016 ACC/AHA stage B congestive heart failure 07/07/2016 Chronic diastolic heart failure 07/07/2016 MOE (dyspnea on exertion) 07/07/2016 Edema of both legs 06/21/2016 HTN (hypertension) 06/14/2016 Bipolar 1 disorder documented as of this encounter (statuses as of 06/23/2020) Resolved Problems Problem Noted Date Resolved Date Acute kidney injury (nontraumatic) 06/14/201607/16 UTI (urinary tract infection) 06/14/2016 07/16/2016 DM (diabetes mellitus) 06/14/2016 07/16/2016 documented as of this encounter (statuses as of 06/23/2020) Immunizations Name Administration Dates Next Due Influenza [...] Treatment Date Type Specialty Care Team Description 07/24/2020 Office Visit Cardiology Mino Mcmahon MD [address] [facility] [address] [place] [phone] 08/01/2020 Office Visit Family Medicine EdBrigido becerra MD [address] [place] [address] [address] [place], [place] [address] Health Maintenance Due Date Last Done Comments DTaP,Tdap,and Td Vaccines (1 - 1970 Tdap) FOOT EXAM 1977 PAP SMEAR 1980 Breast Cancer Screening 1999 (MAMMOGRAM) COLONOSCOPY 2009 Zoster Recombinant Vaccine 2009 (SHINGRIX) (1 of 2) LUNG CANCER SCREEN: Recommended 2014 for age 55-80 with 30 + pack year history EYE EXAM 12/26/2019 12/26/2018 INFLUENZA VACCINE (#1) 2020 HgA1C 10/31/2020 05/01/2020, 09/04/2018, 05/22/2018, Additional history exists CREATININE (SERUM) 05/01/2021 05/01/2020, 01/29/2019, 01/18/2019, Additional history exists LDL-C 05/01/2021 05/01/2020, 06/15/2016 Depression Screening 05/16/2021 05/16/2020 PNEUMOCOCCAL 0-64 YEARS COMBINED Completed 02/15/2017 SERIES HEPATITIS C (HCV) SCREEN Completed 01/29/2019, 01/18/2019 documented as of this encounter Implants Implanted Type Area Stone Chimney Mason Device Shelf Model / Identifier Expiration Serial / Date Lot Xenosure Biological Patch PATCH Left: Arm [employer] 03/25/2023 E0.8P8 / Implanted: Qty: 1 on 10/07/2017 by Leonard Echeverria MD at [facility] [id number] / [id number] documented as of this encounter Results Not on filedocumented in this encounter Visit Diagnoses Diagnosis Seasonal allergic rhinitis, unspecified trigger documented in this encounter Insurance Payer Benefit Plan / Subscriber ID Effective Phone Address T e Group Dates UNIQUE CALHOUN xxxxxxxxx 2011-[address] [place] [facility] [place] [address] MANAGED MEDICAID [place] documented as of this encounter
--- OUTSIDE RECORDS SUMMARY | 2020-07-10 15:54 | XMS REPORT | Summary of Care ---
:1960 Author Organization [facility] Address [address] [place] [address] Care Team Providers Name Role Phone Ventura Camarena Medicaid Hmo Bianca Choudhury MD Primary Care Provider [phone] Reason for Visit Reason Comments Refill Request Encounter Details Date Type Department Care Team Description 06/24/2020 Refill [facility] Pediatric and Ednayak Brigido lacey MD Refill Request Adult Primary Care- [address] [facility] [address] [place], [place] [id number] [address] [place] [address] [phone] Allergies Active Allergy Reactions Severity Noted Date Comments Penicillins Hives 06/14/2016 documented as of this encounter (statuses as of 06/25/2020) Medications Medication Sig Dispensed Refills Start Date End Date Status Blood-Glucose Meter Use as 1 Kit 0 07/16/2016 Active (FREESTYLE SYSTEM directed. KIT) Brand per KitIndications: patient. Type 2 diabetes mellitus with other specified complication lancets (FREESTYLE Once daily for 30 Each 5 07/02/2017 Active LANCETS) 28 gauge DM II [facility] blood sugar Test blood 30 Strip 5 [...] mg Take 1 tablet 30 tablet 0 06/25/2020 Active tabletIndications: by mouth once Seasonal allergic daily rhinitis, unspecified trigger CETIRIZINE 10 mg Take 1 tablet 30 tablet 0 06/23/2020 06/25/20 20 Discontinued tabletIndications: by mouth once Seasonal allergic daily rhinitis, unspecified trigger documented as of this encounter (statuses as of 06/25/2020) Active Problems Problem Noted Date Seasonal allergic rhinitis, unspecified trigger 2019 Tobacco dependence 05/01/2020 Hospital discharge follow-up 05/01/2020 Arteriovenous fistula stenosis, subsequent encounter 1 11/28/2016 Overview: Added automatically from request for min danii [id number] Obesity (BMI 30-39.9) 08/02/2017 ESRD needing dialysis 07/18/2017 Overview: Added automatically from request for min danii [id number] Elevated serum lactate dehydrogenase 02/11/2017 Essential hypertension 09/03/2016 Type 2 diabetes mellitus with other specified complica tion 07/16/2016 ACC/AHA stage B congestive heart failure 07/07/2016 Chronic diastolic heart failure 07/07/2016 MOE (dyspnea on exertion) 07/07/2016 Edema of both legs 06/21/2016 HTN (hypertension) 06/14/2016 Bipolar 1 disorder documented as of this encounter (statuses as of 06/25/2020) Resolved Problems Problem Noted Date Resolved Date Acute kidney injury (nontraumatic) 06/14/201607/16 UTI (urinary tract infection) 06/14/2016 07/16/2016 DM (diabetes mellitus) 06/14/2016 07/16/2016 documented as of this encounter (statuses as of 06/25/2020) Immunizations Name Administration Dates Next Due Influenza [...] Office Visit Cardiology Mino Mcmahon MD [address] [facility] [address] [place] [phone] 08/01/2020 Office Visit Family Medicine Brigido Aguila MD [address] [place] [address] [address] [place], [place] [address] [phone] Health Maintenance Due Date Last Done Comments [...] of this encounter Implants Implanted Type Area Telephone Repairer Device Shelf Model / Identifier Expiration Serial / Date Lot Xenosure Biological Patch PATCH Left: Arm [employer] 03/25/2023 E0.8P8 / Implanted: Qty: 1 on 10/07/2017 by Leonard Echeverria MD at [facility] [id number] / [id number] documented as of this encounter Results Not on filedocumented in this encounter Visit Diagnoses Diagnosis Seasonal allergic rhinitis, unspecified trigger documented in this encounter Insurance Payer Benefit Plan / Subscriber ID Effective Phone Address T e Group Dates UNIQUE CALHOUN xxxxxxxxx 2011-Julian [place] [facility] [place] [address] MA[place]GED MEDICAID [place] documented as of this encounter
--- NOTE | 2020-07-10 17:20 | RAD REPORT ---
EXAM DESCRIPTION: CT - Head Brain Wo Cont - 07/10/2020 5:05 pm CLINICAL HISTORY: WEAKNESS, hypertension COMPARISON: No comparisons TECHNIQUE: Axial 5 mm thick images of the head were obtained without IV contrast. All CT scans are performed using dose optimization technique as appropriate and may include automated exposure control or mA/KV adjustment according to patient size. FINDINGS: No intracranial hemorrhage, mass, edema or shift of mid-line structures. No acute infarcti on changes seen. No abnormal extra-axial fluid collections. Mild to moderate for age atrophy changes are present. Ventricles are in proportion. Patient has advanced chronic ischemic pattern in the cereb ral white matter extending into the left anterior horn internal capsule and basal ganglia. Mastoid air cells and visualized portions of the paranasal sinuses are clear. No acute bony findings. IMPRESSION: Atrophy and chronic ischemic changes are present. No hemorrhage, mass or acute intracran ial finding identifiable.
--- NOTE | 2020-07-10 17:30 | RAD REPORT ---
EXAM DESCRIPTION: RAD - Chest Single View - 07/10/2020 5:10 pm CLINICAL HISTORY: weakness, CHF history COMPARISON: Portable June 11 TECHNIQUE: AP portable chest image was obtained 07/10/2020 5:10 pm . FINDINGS: Lung volumes are low. There is some patchy interstitial and alveolar opacification that is generally less prominent than seen June 11. Mild cardiomegaly is present. Central vasculature and jennifer ng markings are prominent. Right-sided large diameter vascular access catheter is in place unchanged in position. No measurable pleural effusion and no pneumothorax. No acute bony abnormality seen. No a cute aortic findings suspected. IMPRESSION: No focal mass or consolidation. Heart, vasculature and lung markings are prominent but to a lesser degree seen on June 11. Findings m ay still reflect a mild CHF/ volume overload.
[2020-07-10 17:52] LABS: Absolute Lymphocytes (CBC) 1.8 K/uL (0.7-4.9); Basophils % 0.5 % (0-1.3); Hematocrit 28.3 % (36.0-45.0); Lymphocytes % 34.8 % (15.3-44.8); RBC Red Blood Cell Count 3.08 M/uL (3.86-4.86)
[2020-07-10 18:07] LABS: Protime INR 1.03
[2020-07-10 18:33] LABS: ALT/SGPT 13 U/L (12-78); AST/SGOT 23 U/L (15-37); Albumin 3.1 g/dL (3.4-5.0); Alkaline Phosphatase 82 U/L (45-117); BUN Blood Urea Nitrogen 20 mg/dL (7-18); Bicarbonate 34 mmol/L (21-32); Bilirubin Direct 0.2 mg/dL (0-0.2); Bilirubin Total 0.3 mg/dL (0.2-1.0); Glucose Level 150 mg/dL (74-106); Magnesium 2.1 mg/dL (1.8-2.4); NT PRO-BNP 37431 pg/mL (<125); Potassium 3.3 mmol/L (3.5-5.1); Protein, Total 8.2 g/dL (6.4-8.2); Sodium Level 142 mmol/L (136-145); Troponin (Emerg Dept Use Only) < 0.02 ng/mL (0.0-0.045)
--- NOTE | 2020-07-10 19:26 | ER ---
Nurse's Notes [facility] Name: Dennise Harris Age: 60 yrs Sex: Female : 1960 Arrival Date: 07/10/2020 Time: 16:08 Bed 20 Private MD: Diagnosis: Weakness;Fall on same level from slipping, tripping and stumbling;Anemia in chronic kidney disease Presentation: 07/10 16:00 Chief complaint: EMS states: Pt. is A \T\ O x 4, completed dialysis today at [address], Output was 2.5 liters. C/o weakness since starting her Carvedilol 25 mg PO BID, new medication. Dialysis center reports that the pt. BP was low when they called EMS. Upon EMS arrival BP 114/68, P 68, O2 100%, T 97.5, BS 182. History of ESRD and HTN. Allergy to PENICILLIN. Has a Subclavian Port in the Right upper chest. No BP on L arm. 16:00 Coronavirus screen: At this time, the client does not indicate any symptoms associated rb1 with coronavirus-19. Pt. reports she tested negative a couple weeks ago. Ebola Screen: Patient denies travel to an Ebola-affected area in the 21 days before illness onset. Initial Sepsis Screen:. Onset of symptoms was July 10, 2020. 16:00 Method Of Arrival: EMS: [place] [address] 16:00 Acuity: FAWAD 3 rb1 16:00 Initial Sepsis Screen: Does the patient meet any 2 criteria? No. Patient's initial rb1 sepsis screen is negative. Does the patient have a suspected source of infection? No. Patient's initial sepsis screen is negative. Risk Assessment: Do you want to hurt yourself or someone else? Patient reports no desire to harm self or others. Triage Assessment: 16:00 General: Appears in no apparent distress. comfortable, Behavior is calm, cooperative. rb1 Pain: Complains of pain in right knee Pain currently is 9 out of 10 on a pain scale. Neuro: Level of Consciousness is awake, alert, obeys commands, Oriented to person, place, time, situation. Cardiovascular: Capillary refill < 3 seconds. Respiratory: Airway is patent Respiratory effort is even, unlabored, Respiratory pattern is regular, symmetrical. GI: No signs and/or symptoms were reported involving the gastrointestinal system. : Reports Dialysis on Tue, Th, Sat. Derm: Skin is dry, Skin is normal, Skin temperature is warm. Musculoskeletal: Range of motion: intact in all extremities. Historical: - Allergies: 16:00 PENICILLINS; rb1 - Home Meds: 16:00 carvedilol 25 mg oral tab 1 tab 2 times per day [Active]; rb1 - PMHx: 16:00 CHF; HD - Tue/Th/Sat; Hypertension; rb1 - Immunization history:: Adult Immunizations up to date. - Social history:: Smoking status: Patient reports the use of cigarette tobacco products, smokes one-half pack cigarettes per day. Screenin:00 Abuse screen: Denies threats or abuse. Nutritional screening: No deficits noted. rb1 Tuberculosis screening: No symptoms or risk factors identified. Fall Risk None identified. Assessment: 16:00 General: See triage assessment. rb1 16:58 Reassessment: Pt. went to CT. rb1 18:00 Reassessment: Patient appears in no apparent distress at this time. Patient and/or rb1 family updated on plan of care and expected duration. Pain level reassessed. Patient is alert, oriented x 3, equal unlabored respirations, skin warm/dry/pink. 19:45 Reassessment: patient refused straight catheter. mg2 Vital Signs: 16:00 BP 136 / 76; Pulse 73; Resp 17; Temp 99.2; Pulse Ox 96% on R/A; Weight 68.95 kg (R); rb1 Height 5 ft. 4 in. (162.56 cm) (R); Pain 9/10; 17:00 BP 134 / 70; Pulse 72; Resp 16; Pulse Ox 95% ; rb1 18:00 BP 133 / 67; Pulse 75; Resp 15; Pulse Ox 97% on R/A; rb1 20:40 BP 129 / 68; Pulse 77; Resp 18; Pulse Ox 100% on R/A; mg2 16:00 Body Mass Index 26.09 (68.95 kg, 162.56 cm) rb1 ED Course: 16:00 Arm band placed on right wrist. rb1 16:00 Patient has correct armband on for positive identification. Bed in low position. Call rb1 light in reach. Side rails up X 1. Pulse ox on. NIBP on. 16:08 Patient arrived in ED. rb1 16:08 Andrew Petit PA is PHCP. cp 16:08 Isiah Sheth MD is Attending Physician. cp 16:15 Triage completed. rb1 16:57 Amy Basurto, RN is Primary Nurse. rb1 17:05 CT Head Brain wo Cont In Process Unspecified. EDMS 17:10 XRAY Chest (1 view) In Process Unspecified. EDMS 19:25 Ventura Camarena DO is Hospitalizing Provider. cp 20:41 No provider procedures requiring assistance completed. Patient admitted, IV remains in mg2 place. Administered Medications: 20:39 Drug: Lasix 80 mg Route: IVP; Site: right antecubital; mg2 20:51 Follow up: Response: No adverse reaction mg2 Outcome: 19:26 Decision to Hospitalize by Provider. cp 20:51 Admitted to Med/surg accompanied by nurse, via stretcher, room 217, with chart, Report mg2 called to YESSI Patterson 20:51 Condition: stable 20:51 Instructed on the need for admit, Demonstrated understanding of instructions. 21:07 Patient left the ED. mg2 Signatures: Dispatcher [employer] EDRI Andrew Petit PA PA cp Amy Basurto, RN RN rb1 Héctor Dsouza RN RN mg2
--- NOTE | 2020-07-10 19:26 | EDPHYS ---
Physician Documentation [facility] Name: Dennise Harris Age: 60 yrs Sex: Female : 1960 Arrival Date: 07/10/2020 Time: 16:08 Bed 20 Private MD: ED Physician Isiah Sheth HPI: 07/10 16:15 This 60 yrs old Black Female presents to ER via EMS with complaints of Low Blood cp Pressure. 16:15 The patient's problem is reported as weakness, that is generalized. Onset: The cp symptoms/episode began/occurred today. Duration: The episode is continuous. Context: symptoms became apparent while at dialysis. 16:15 Associated signs and symptoms: Pertinent positives: reported low blood pressure, cp Pertinent negatives: abdominal pain, chest pain, confusion, diarrhea, vomiting. Patient's baseline: Neuro: alert and fully oriented, Motor: no deficits, Ambulation: walks without assistance, Speech: normal. Historical: - Allergies: 16:00 PENICILLINS; rb1 - Home Meds: 16:00 carvedilol 25 mg oral tab 1 tab 2 times per day [Active]; rb1 - PMHx: 16:00 CHF; HD - Tue//Tue; Hypertension; rb1 - Immunization history:: Adult Immunizations up to date. - Social history:: Smoking status: Patient reports the use of cigarette tobacco products, smokes one-half pack cigarettes per day. ROS: 16:20 Constitutional: Negative for body aches, chills, fever, poor PO intake. cp 16:20 Eyes: Negative for injury, pain, redness, and discharge. cp 16:20 ENT: Negative for ear pain, sore throat, difficulty swallowing, difficulty handling secretions. 16:20 Cardiovascular: Negative for chest pain. 16:20 Respiratory: Negative for cough, shortness of breath, wheezing. 16:20 Abdomen/GI: Negative for abdominal pain, nausea, vomiting, and diarrhea, black/tarry stool, rectal bleeding. 16:20 Skin: Negative for cellulitis, rash. 16:20 Neuro: Positive for weakness, Negative for altered mental status, headache. 16:20 All other systems are negative. Exam: 16:25 Constitutional: The patient appears in no acute distress, alert, awake, cp non-diaphoretic, non-toxic, well developed, frail. 16:25 Head/Face: Normocephalic, atraumatic. cp 16:25 Eyes: Periorbital structures: appear normal, Conjunctiva: normal, no exudate, no injection, Sclera: no appreciated abnormality, Lids and lashes: appear normal, bilaterally. 16:25 ENT: External ear(s): are unremarkable, Nose: is normal, Mouth: Lips: dry, Oral mucosa: moist, Posterior pharynx: Airway: no evidence of obstruction, patent. 16:25 Neck: ROM/movement: is normal, is supple, without pain, no range of motions limitations, no meningismus. 16:25 Chest/axilla: Inspection: normal, Palpation: is normal, no crepitus, no tenderness. 16:25 Cardiovascular: Rate: normal, Rhythm: regular, Edema: is not appreciated, JVD: is not appreciated. 16:25 Respiratory: the patient does not display signs of respiratory distress, Respirations: normal, no use of accessory muscles, no retractions, no splinting, no tachypnea, labored breathing, is not present, Breath sounds: are clear throughout, no decreased breath sounds. 16:25 Abdomen/GI: Inspection: abdomen appears normal, Palpation: abdomen is soft and non-tender, in all quadrants, Rectal exam: Stool: brown, guaiac negative. 16:25 Skin: cellulitis, is not appreciated, no rash present. 16:25 Neuro: Orientation: to person, place \T\ time. Mentation: able to follow commands, slow to respond, Cerebellar function: is grossly normal, Motor: moves all fours, general weakness with no focal deficits, Sensation: is normal. 17:35 Radiologist reports: no acute findings cp 19:10 ECG was reviewed by the Attending Physician. cp Vital Signs: 16:00 BP 136 / 76; Pulse 73; Resp 17; Temp 99.2; Pulse Ox 96% on R/A; Weight 68.95 kg (R); rb1 Height 5 ft. 4 in. (162.56 cm) (R); Pain 9/10; 17:00 BP 134 / 70; Pulse 72; Resp 16; Pulse Ox 95% ; rb1 18:00 BP 133 / 67; Pulse 75; Resp 15; Pulse Ox 97% on R/A; rb1 20:40 BP 129 / 68; Pulse 77; Resp 18; Pulse Ox 100% on R/A; mg2 16:00 Body Mass Index 26.09 (68.95 kg, 162.56 cm) rb1 MDM: 16:13 Patient medically screened. cp 17:00 Differential diagnosis: CVA, metabolic disorder, drug effects, sepsis. cp 19:25 Data reviewed: vital signs, nurses notes, lab test result(s), EKG, radiologic studies, cp CT scan, plain films. 19:25 Test interpretation: by ED physician or midlevel provider: ECG. Physician consultation: anitra STEIN was called at 19:20, was contacted at 19:20, regarding admission, to the telemetry unit. patient's condition, and will see patient in ED, shortly. 07/10 16:11 Order name: Basic Metabolic Panel; Complete Time: 19:14 / 19:14 Interpretation: Normal except: K 3.3; CO2 34; GLUC 150; BUN 20; CRE 3.95; GFR 14. 07/10 16:11 Order name: CBC with Diff; Complete Time: 18:22 07/10 18:22 Interpretation: Normal except: RBC 3.08; HGB 9.8; HCT 28.3. cp 07/10 16:11 Order name: LFT's; Complete Time: 19:14 cp 07/10 16:11 Order name: Magnesium; Complete Time: 19:14 cp 07/10 16:11 Order name: NT PRO-BNP; Complete Time: 19:14 cp 07/10 16:11 Order name: PT-INR; Complete Time: 19:14 cp 07/10 16:11 Order name: Troponin (emerg Dept Use Only); Complete Time: 19:14 07/10 19:15 Interpretation: Within normal limits: TROPED < 0.02. cp 07/10 16:11 Order name: Procalcitonin; Complete Time: 19:14 cp 07/10 16:11 Order name: Blood Culture Adult (2) cp 07/10 16:11 Order name: Urine Microscopic Only cp 07/10 16:11 Order name: Urine Culture 07/10 16:11 Order name: COVID-19 cp 07/10 16:11 Order name: Flu; Complete Time: 19:14 cp 07/10 19:42 Order name: UDS cp 07/10 16:11 Order name: CT Head Brain wo Cont; Complete Time: 17:31 cp 07/10 16:11 Order name: XRAY Chest (1 view); Complete Time: 17:31 cp 07/10 16:11 Order name: EKG; Complete Time: 16:12 cp 07/10 16:11 Order name: Cardiac monitoring; Complete Time: 19:31 cp 07/10 16:11 Order name: EKG - Nurse/Tech; Complete Time: 19:31 cp 07/10 19:59 Order name: CONS Physician Consult [facility] 07/10 20:02 Order name: Physical Therapy Consult [facility] 07/10 20:02 Order name: NPO [facility] 07/10 20:02 Order name: Urinalysis [facility] 07/10 20:02 Order name: Basic Metabolic Panel [facility] 07/10 20:02 Order name: Basic Metabolic Panel [facility] 07/10 20:02 Order name: CBC with Automated Diff [facility] 07/10 20:02 Order name: CBC with Automated Diff [facility] 07/10 20:02 Order name: Magnesium [facility] 07/10 20:02 Order name: Magnesium [facility] 07/10 16:11 Order name: IV Saline Lock; Complete Time: 18:18 cp 07/10 16:11 Order name: Labs collected and sent; Complete Time: 18:18 cp 07/10 16:11 Order name: O2 Per Protocol; Complete Time: 18:18 cp 07/10 16:11 Order name: O2 Sat Monitoring; Complete Time: 18:18 cp 07/10 16:11 Order name: Document PUI# cp 07/10 16:11 Order name: Droplet/Contact Precautions; Complete Time: 20:42 cp 07/10 16:11 Order name: Notify Health Dept [phone]/ cp EC:10 Rate is 78 beats/min. Rhythm is regular. OH interval is normal. QRS interval is normal. cp QT interval is normal. Interpreted by me. Reviewed by me. Administered Medications: 20:39 Drug: Lasix 80 mg Route: IVP; Site: right antecubital; mg2 20:51 Follow up: Response: No adverse reaction mg2 Disposition: 07/10/20 19:26 Hospitalization ordered by Ventura Camarena for Observation. Preliminary diagnosis are Weakness, Fall on same level from slipping, tripping and stumbling, Anemia in chronic kidney disease. - Bed requested for Telemetry/MedSurg (observation). - Status is Observation. mg2 - Condition is Stable. - Problem is new. - Symptoms are unchanged. Addendum: 07/14/2020 08:27 Co-signature as Attending Physician, Isiah Sheth MD I agree with the assessment and k dr plan of care. Signatures: Dispatcher [employer] Deloris Diaz RN RN Isiah Sheth MD MD [facility] Andrew Petit PA PA cp Amy Basurto, RN RN rb1 Héctor Dsouza RN RN mg2 Corrections: (The following items were deleted from the chart) 07/10 19:57 19:26 Hospitalization Ordered by Ventura Camarena DO for Observation. Preliminary dw diagnosis is Weakness; Fall on same level from slipping, tripping and stumbling; Anemia in chronic kidney disease. Bed requested for Telemetry/MedSurg (observation). Status is Observation. Condition is Stable. Problem is new. Symptoms are unchanged. cp 21:07 19:57 07/10/2020 19:26 Hospitalization Ordered by Ventura Camarena DO for Observation. mg2 Preliminary diagnosis is Weakness; Fall on same level from slipping, tripping and stumbling; Anemia in chronic kidney disease. Bed requested for Telemetry/MedSurg (observation). Status is Observation. Condition is Stable. Problem is new. Symptoms are unchanged. dw
--- NOTE | 2020-07-10 20:37 | P.HP ---
Certification for Inpatient Patient admitted to: Observation With expected LOS: <2 Midnights Patient will require the following post-hospital care: None Practitioner: I am a practitioner with admitting privileges, knowledge of patient current condition, hospital course, and medical plan of care. Services: Services provided to patient in accordance with Admission requirements found in Title 42 Section 412.3 of the Code of Federal Regulations <[email or web address] - Last Filed: 07/10/20 20:48> Patient admitted to: Observation <Ventura Camarena - Last Filed: 07/11/20 12:32> Patient History Date of Service: 07/10/20 Reason for admission: Congestive heart failure exacerbation/debility History of Present Illness: 60-year-old female with past medical history of end-stage renal disease on hemodialysis Tuesday, type 2 diabetes mellitus and hypertension who was sent to the emergency room from the dialysis center after noticing the patient was weak and slightly lethargic. In the emergency room patient is hard to arouse. She is alert but will fall asleep shortly. [place] [address], chest x-ray shows mild CHF with volume overload. CT of the head was negative for intracranial bleed and a UA/ UDS is pending. On physical exam patient is having a hard time staying awake. She denies illegal drug use. States she did have some beers last night and is a every day half a pack-a-day smoker. Spoke with Dr. Berry. States that patient was very weak in dialysis. She was falling asleep and hard to arouse. Daughter states that patient did not come home last night and does not know where she spent the night. Patient does have a history of drug abuse and alcohol abuse. Patient will be placed in observation and further evaluated. Home medications list reviewed: No - Past Medical/Surgical History Diabetic: Yes -: kidney issues -: HTN -: NIDDM -: Bladder issues -: Cataracts -: knee sx -: stunt placement in arm - Family History Mother -: Hypertension, Diabetes, Kidney disease - Social History Smoking Status: Current every day smoker Smoking therapy provided: No Patient receptive to therapy: No Alcohol use: Yes CD- Drugs: No Caffeine use: Yes Place of Residence: Home <Juan Buckley - Last Filed: 07/10/20 20:48> Date of Service: 07/11/20 - Past Medical/Surgical History -: End-stage renal disease on hemodialysis Psychosocial/ Personal History: Patient lives at home <Ronald Camarenaand - Last Filed: 07/11/20 12:32> Allergies Penicillins Adverse Reaction (Mild, Verified 03/30/19 11:43) SWELLING Home Medications: carvediloL [Coreg*] 25 mg PO BIDWM 01/30/19 ramipriL [Altace*] 10 mg PO BEDTIME #60 cap 04/29/20 Cetirizine HCl [Zyrtec] 10 mg PO DAILY 06/12/20 Gabapentin 300 mg PO BID 06/12/20 NIFEdipine [Nifedipine ER] 90 mg PO DAILY 06/12/20 Tizanidine [Zanaflex*] 4 mg PO BID PRN 06/12/20 Review of Systems General: Weakness, As per HPI Eyes: Unremarkable ENT: Unremarkable Respiratory: Unremarkable Cardiovascular: Unremarkable Gastrointestinal: Unremarkable Genitourinary: Unremarkable Musculoskeletal: As per HPI Integumentary: Unremarkable Neurological: Weakness, As per HPI Lymphatics: Unremarkable <Juan Buckley - Last Filed: 07/10/20 20:48> Physical Examination - Vital Signs Temperature: 99.2 F Blood Pressure: 136/76 Pulse: 73 Respirations: 17 Pulse Ox (%): 96 (RA) - Physical Exam General: Alert, In no apparent distress, Oriented x3, Other (Lethargic/sleepy) HEENT: Atraumatic, Normocephalic, PERRLA Neck: Supple, Other (Trachea midline) Respiratory: Clear to auscultation bilaterally, Normal air movement Cardiovascular: No edema, Normal pulses, Regular rate/rhythm, Normal S1 S2 Capillary refill: <2 Seconds Gastrointestinal: Normal bowel sounds, Soft and benign, Non-distended Musculoskeletal: No clubbing, No swelling, No contractures, No erythema, No tenderness Integumentary: No rashes, No breakdown, No significant lesion, No tenderness/swelling Neurological: Normal gait, Normal speech, Normal strength at 5/5 x4 extr, Normal tone, Abnormal affect (Arousable but falls asleep shortly after initial c onversation) Urinary: Dialysis catheter - Studies Laboratory Data (last 24 hrs) 07/10/20 17:35: PT 12.1, INR 1.03 07/10/20 17:35: WBC 5.3, Hgb 9.8 L, Hct 28.3 L, Plt Count 219 07/10/20 17:35: Sodium 142, Potassium 3.3 L, BUN 20 H, Creatinine 3.95 H, Glucose 150 H, Magnesium 2.1 D, Total Bilirubin 0.3, AST 23, ALT 13, Alkaline Phosphatase 82 Microbiology Data (last 24 hrs): 07/10/20 17:25 Nasopharnyx Influenza Type A Antigen Screen - Final 07/10/20 17:25 Nasopharnyx Influenza Type B Antigen Screen - Final <Jarred Buckleyel - Last Filed: 07/10/20 20:48> - Studies Laboratory Data (last 24 hrs) 07/10/20 17:35: PT 12.1, INR 1.03 07/10/20 17:35: WBC 5.3, Hgb 9.8 L, Hct 28.3 L, Plt Count 219 07/10/20 17:35: Sodium 142, Potassium 3.3 L, BUN 20 H, Creatinine 3.95 H, Glucose 150 H, Magnesium 2.1 D, Total Bilirubin 0.3, AST 23, ALT 13, Alkaline Phosphatase 82 Microbiology Data (last 24 hrs): 07/10/20 17:25 Nasopharnyx Influenza Type A Antigen Screen - Final 07/10/20 17:25 Nasopharnyx Influenza Type B Antigen Screen - Final <Ventura Camarena - Last Filed: 07/11/20 12:32> Assessment and Plan - Plan Impression: Congestive heart failure exacerbation: End-stage renal disease on dialysis Tuesday: Generalized debility/weakness: Type 2 diabetes mellitus: Essential hypertension: History of drug abuse: Nicotine dependence: Plan: Congestive heart failure exacerbation: No record of prior echocardiogram[place] [address]+, chest x-ray showing mild CHF with volume overload. Will order echocardiogram. Spoke with Dr. Berry. Per recommendations patient produces minimal urine. Will give high dose of IV Lasix of 80 mg x1. End-stage renal disease on dialysis Tuesday: Spoke with Dr. Berry. Patient completed most of her dialysis today. He will round on patient tomorrow and reassess patient regarding dialysis for tomorrow. Generalized debility/weakness: Etiology unclear. CT of the head was negative for intracranial bleed. Patient has no neurologic deficits. There is concern patient may have taken street drugs or other medication. Daughter states patient never came home last night and the patient has a history of drug abuse. In dialysis patient was noted to be difficult to arouse and would fall asleep quickly. Type 2 diabetes mellitus: Will start sliding scale insulin. Accu-Cheks a.c. HS. Will keep NPO for now. Patient is arousable but falls asleep quickly. Essential hypertension: Will resume all medications once verified. History of drug abuse: Patient refusing straight catheterization. Will complete UA and UDS if patient produces urine and is willing to cooperate. Nicotine dependence: Smokes half a pack of cigarettes per day. Discharge Plan: Home Plan to discharge in: 48 Hours - Advance Directives Does patient have a Living Will: No Does patient have a Durable POA for Healthcare: No - Code Status/Comfort Care Code Status Assessed: Yes Time Spent Managing Pts Care (In Minutes): 55 <Juan Buckley - Last Filed: 07/10/20 20:48> - Plan Case discussed at length with physician industrial hire sales assistant. Agree with plan of care. Suspect acute on chronic diastolic CHF. Continue diuresis and likely need for dialysis. Will ambulate patient. Will check urine drug screen. Will discontinue muscle relaxer. No evidence of infection. Anticipate improvement over the next 24 hr. Possible discharge if okay with nephrology. <Ventura Camarena - Last Filed: 07/11/20 12:32>
[2020-07-10] MEDS ORDERED: FUROSEMIDE 40 MG/4 ML VIAL ONE ×2 (20:43→20:44)
--- NOTE | 2020-07-10 21:51 | P.INFCA ---
Sepsis Focused Assessment - Sepsis Screen Result Severe Sepsis: Positive - Evaluation Current stage of sepsis: Severe sepsis - Vital Signs Reviewed: Yes Temperature: 99.2 F Heart rate: 89 Blood Pressure: 94/65 Respiratory Rate: 19 O2 Sat by Pulse Oximetry: 99 (RA) - Examination Date exam was performed: 07/10/20 Time exam was performed: 21:40 Heart: Regular rate/rhythm Lungs: Clear bilaterally Peripheral pulses: 3+ Normal Peripheral pulse location: Posterior tibial Capillary refill: <2 Seconds Skin examination: Normal turgor <Juan Buckley - Last Filed: 07/10/20 21:38> - Focused Assessment Complete? Sepsis Focused Assessment Completed?: Yes (assessment reviewed.) - Sepsis Screen Result Severe Sepsis: Negative Septic Shock: Negative - Evaluation Current stage of sepsis: Ruled out - Vital Signs Reviewed: Yes - Examination Heart: Regular rate/rhythm Lungs: Clear bilaterally Peripheral pulses: 3+ Normal Peripheral pulse location: Posterior tibial Capillary refill: <2 Seconds Skin examination: Normal turgor Comments: stable <Ventura Camarena - Last Filed: 07/15/20 15:53>
[2020-07-11] MEDS: HEPARIN 5000 UNIT/ML 1 ML VIAL SQ SCH ×3 (00:03→20:45)
[2020-07-11 01:38] VITALS: BMI 26.1
[2020-07-11 06:06] LABS: Magnesium 2.2 mg/dL (1.8-2.4); Potassium 3.9 mmol/L (3.5-5.1)
[2020-07-11 06:19] LABS: Absolute Lymphocytes (CBC) 1.7 K/uL (0.7-4.9); Basophils % 0.5 % (0-1.3); Hematocrit 27.8 % (36.0-45.0); Lymphocytes % 31.1 % (15.3-44.8); MPV 8.2 fL (7.6-11.3)
--- NOTE | 2020-07-11 07:09 | EKG ---
Test Date: 2020-07-10 Test Time: 19:03:45 Classroom Assistant: MARIO MEASUREMENT RESULTS: Intervals: Rate: 78 GA: 150 QRSD: 90 QT: 442 QTc: 503 Aroda: P: 59 GA: 150 QRS: -25 T: 73 INTERPRETIVE STATEMENTS: Normal sinus rhythm Septal infarct, age undetermined Abnormal ECG Compared to ECG 06/11/2020 22:25:32 Left-axis deviation no longer present Myocardial infarct finding still present Electronically Signed On 07-11-20 07:08:16 CDT by Tru Bill
--- NOTE | 2020-07-11 08:26 | RAD REPORT ---
EXAM DESCRIPTION: Robbin Sarabia And Crow (2 Views)07/11/2020 8:05 am CLINICAL HISTORY: Shortness of breath COMPARISON: July 10, 2020 FINDINGS: The lungs appear clear of acute infiltrate. The heart is borderline enlarged. Central venous catheter has its tip in right atrium IMPRESSION: No acute abnormalities displayed
[2020-07-11] MEDS ORDERED: CETIRIZINE HCL 5 MG TABLET PO PRN (10:34)
[2020-07-11] MEDS: GABAPENTIN 300 MG CAP PO SCH ×2 (11:30→20:44)
[2020-07-11] MEDS: TIZANIDINE 4 MG TABLET PO PRN ×2 (11:34→21:25)
--- NOTE | 2020-07-11 12:29 | P.PN ---
Subjective Date of Service: 07/11/20 Chief Complaint: Congestive heart failure exacerbation/debility Subjective: Improving Physical Examination - Vital Signs Temperature: 97.5 F Blood Pressure: 168/72 Pulse: 74 Respirations: 17 Pulse Ox (%): 94 - Physical Exam General: Alert, Cooperative HEENT: Atraumatic Neck: Supple Respiratory: Clear to auscultation bilaterally, Normal air movement Neurological: Normal speech, Normal strength at 5/5 x4 extr, Normal tone, Normal affect - Studies Laboratory Data (last 24 hrs) 07/10/20 17:35: PT 12.1, INR 1.03 07/10/20 17:35: WBC 5.3, Hgb 9.8 L, Hct 28.3 L, Plt Count 219 07/10/20 17:35: Sodium 142, Potassium 3.3 L, BUN 20 H, Creatinine 3.95 H, Glucose 150 H, Magnesium 2.1 D, Total Bilirubin 0.3, AST 23, ALT 13, Alkaline Phosphatase 82 Microbiology Data (last 24 hrs): 07/10/20 17:25 Nasopharnyx Influenza Type A Antigen Screen - Final 07/10/20 17:25 Nasopharnyx Influenza Type B Antigen Screen - Final Medications List Reviewed: Yes Assessment & Plan Discharge Plan: Home Plan to discharge in: 24 Hours Physician Review Additional Text: Impression: Acute on chronic diastolic Congestive heart failure exacerbation End-stage renal disease on dialysis Tuesday Generalized debility/weakness Type 2 diabetes mellitus Essential hypertension History of drug abuse Nicotine dependence Plan: Acute on chronic diastolic Congestive heart failure exacerbation: Echo pending at this time. Continue IV diuresis. Continue fluid restriction. Patient will likely require dialysis. Renal function still compromise. Will discuss further with nephrology. Await further recommendations. Anticipate improvement over the next 24 hr. End-stage renal disease on dialysis Tuesday: Patient will likely require dialysis today. Await recommendations by nephrology. Possible discharge as early as today or within 24 hr. Generalized debility/weakness: Etiology unclear. CT of the head was negative for intracranial bleed. Patient has no neurologic deficits. There is concern patient may have taken street drugs or other medication. Urine drug screen pending. Physical therapy to ambulate. Type 2 diabetes mellitus: Continue sliding scale. Accu-Cheks a.c. HS. Essential hypertension: Continue home medication History of drug abuse: Patient refusing straight catheterization. Will complete UA and UDS if patient produces urine and is willing to cooperate. Nicotine dependence: Smokes half a pack of cigarettes per day. Cessation education provided Time Spent Managing Pts Care (In Minutes): 55
--- NOTE | 2020-07-11 12:43 | ECHO ---
HEIGHT: 5 ft 4 in WEIGHT: 152 lb 0 oz DATE OF STUDY: 07/11/[address]: Juan Buckley 2-DIMENSIONAL: YES M.MODE: YES DOPPLER: YES COLOR FLOW: YES TDS: NO PORTABLE: NO DEFINITY: NO BUBBLE STUDY: NO DIAGNOSIS: CONGESTIVE HEART FAILURE CARDIAC HISTORY: CATHERIZATION: NO SURGERY: NO PROSTHETIC VALVE: NO PACEMAKER: NO MEASUREMENTS (cm) DIASTOLIC (NORMALS) SYSTOLIC (NORMALS) IVSd 1.4 (0.6-1.2) LA Diam 4.2 (1.9-4.0) LVEF 62% LVIDd 4.5 (3.5-5.7) LVIDs 3.0 (2.0-3.5) %FS 33% LVPWd 1.1 (0.6-1.2) Ao Diam 3.1 (2.0-3.7) 2 DIMENSIONAL ASSESSMENT: RIGHT ATRIUM: NORMAL LEFT ATRIUM: DILATED RIGHT VENTRICLE: NORMAL LEFT VENTRICLE: LEFT VENTRICULAR HYPERTROPHY TRICUSPID VALVE: NORMAL MITRAL VALVE: SCLEROSIS PULMONIC VALVE: NORMAL AORTIC VALVE: MITRAL ANNULAR CALCIFICATION PERICARDIAL EFFUSION: NONE AORTIC ROOT: NORMAL LEFT VENTRICULAR WALL MOTION: DECREASED LEFT VENTRICULAR COMPLIANCE. TRACE OF AORTIC AND TRICUSPID REGURGITATION. DOPPLER/COLOR FLOW: TRACE OF AORTIC AND TRICUSPID REGURGITATION. COMMENTS: TRACE OF AORTIC AND TRICUSPID REGURGITATION. LEFT VENTRICULAR HYPERTROPHY - EJECTION FRACTION 62%. DECREASED LEFT VENTRICULAR COMPLIANCE CONSISTANT WITH DIASTOLIC DYSFUNCTION. MITRAL ANNULAR CALCIFICATION. AORTIC SCLEROSIS. TECHNOLOGIST: KARI DE LA ROSA
[2020-07-11] MEDS ORDERED: EPOETIN ALFA-EPBX 10,000 UNIT/ML VIAL SQ ONE (15:00)
[2020-07-11] MEDS ORDERED: carvediloL 25 MG TAB PO SCH (18:00)
[2020-07-11] MEDS ORDERED: NA CHLORIDE 0.9% 1,000 ML IV PRN (19:29)
[2020-07-11] MEDS ORDERED: MANNITOL 25% 12.5 GM/50 ML VIAL IV PRN (19:29)
--- NOTE | 2020-07-11 19:40 | P.CNS ---
Date of Consult: 07/11/20 Reason for Consult: ESRD Requesting Physician: Ventura Camarena Chief Complaint: Congestive heart failure exacerbation/debility History of Present Illness: 60 yo BF CKD, HTN presented to the ER with moderate, persistent lethargy with associated weakness and fatigue that was noticed earlier in the day at dialysis. She seems to be doing better today but reports worsening tremors in her RUE and muscle spasms of her legs making it hard for her to stand. Fall risk. She feels like something is different, and she is concerned. Denies any new medications. Denies abuse of her muscle relaxant. Hx of polysubstance abuse. 60-year-old female with past medical history of end-stage renal disease on hemodialysis Tuesday, type 2 diabetes mellitus and hypertension who was sent to the emergency room from the dialysis center after noticing the patient was weak and slightly lethargic. Allergies Penicillins Adverse Reaction (Mild, Verified 03/30/19 11:43) SWELLING Home medications list reviewed: Yes Home Medications: carvediloL [Coreg*] 25 mg PO BIDWM 01/30/19 ramipriL [Altace*] 10 mg PO BEDTIME #60 cap 04/29/20 Cetirizine HCl [Zyrtec] 10 mg PO DAILY 06/12/20 Gabapentin 300 mg PO BID 06/12/20 NIFEdipine [Nifedipine ER] 90 mg PO DAILY 06/12/20 Tizanidine [Zanaflex*] 4 mg PO BID PRN 06/12/20 - Past Medical/Surgical History Diabetic: Yes -: End-stage renal disease on hemodialysis -: HTN -: NIDDM -: Bladder issues -: Cataracts -: knee sx -: stunt placement in arm Psychosocial/ Personal History: Patient lives at home - Family History Mother Medical History: Hypertension, Diabetes, Kidney disease - Social History Smoking Status: Current every day smoker Alcohol use: No CD- Drugs: No Caffeine use: Yes Place of Residence: Home Review of Systems 10-point ROS is otherwise unremarkable General: Weakness, Malaise Neurological: Incoordination Physical Examination Temp Pulse Resp BP Pulse Ox 97.3 F 72 17 158/60 H 92 07/11/20 16:00 07/11/20 16:00 07/11/20 16:00 07/11/20 16:00 07/11/20 16:00 General: Oriented x3, Cooperative HEENT: Atraumatic Neck: Supple Respiratory: Clear to auscultation bilaterally Cardiovascular: No edema, Regular rate/rhythm Gastrointestinal: Soft and benign, Non-distended Musculoskeletal: No clubbing, No contractures Integumentary: No rashes, No cyanosis Neurological: Normal speech, Abnormal tone Blood work reviewed in the chart. Imagings Data: EXAM DESCRIPTION: Robbin Pa And Lat (2 Views)07/11/2020 8:05 am CLINICAL HISTORY: Shortness of breath COMPARISON: July 10, 2020 FINDINGS: The lungs appear clear of acute infiltrate. The heart is borderline enlarged. Central venous catheter has its tip in right atrium IMPRESSION: No acute abnormalities displayed LEFT VENTRICULAR WALL MOTION: DECREASED LEFT VENTRICULAR COMPLIANCE. TRACE OF AORTIC AND TRICUSPID REGURGITATION. DOPPLER/COLOR FLOW: TRACE OF AORTIC AND TRICUSPID REGURGITATION. COMMENTS: TRACE OF AORTIC AND TRICUSPID REGURGITATION. LEFT VENTRICULAR HYPERTROPHY EJECTION FRACTION 62%. DECREASED LEFT VENTRICULAR COMPLIANCE CONS ISTANT WITH DIASTOLIC DYSFUNCTION. MITRAL ANNULAR CALCIFICATION. AORTIC SCLEROSIS. Conclusions/Impression: A/ ESRD on HD HTN with CKD/ CHF Diastolic CHF, chronic DM II with CKD Anemia in CKD JUANITO/ Secondary HyperPTH Nicotine dependence. P/ Continue current POC and Medications. Arrange for acute HD tomorrow with [facility]. Give Epo. Restart home medications as indicated. Recommend a neurology consult for tremor and muscle spasms. PT as tolerated. Renal diet. AM labs. Daily weight. No NSAIDs. Thank you kindly for the consultation. Case reviewed with Dr. Camarena.
[2020-07-11] MEDS ORDERED: ALBUMIN HUMAN 25% 50 ML IV SCH (20:00)
[2020-07-11] MEDS: ramipriL 5 MG CAP PO SCH (20:43)
[2020-07-11] MEDS: DOCUSATE NA 100 MG CAP PO SCH (20:44)
[2020-07-11] MEDS ORDERED: ramipriL 5 MG CAP PO SCH (21:00)
[2020-07-12] MEDS: HYDRALAZINE HCL 20 MG/ML VIAL IV PRN ×2 (01:13→08:40)
[2020-07-12 04:36] LABS: Absolute Lymphocytes (CBC) 1.7 K/uL (0.7-4.9); Basophils % 0.7 % (0-1.3); Hematocrit 28.5 % (36.0-45.0); Lymphocytes % 29.2 % (15.3-44.8); MPV 8.3 fL (7.6-11.3); RBC Red Blood Cell Count 3.07 M/uL (3.86-4.86)
[2020-07-12 04:52] LABS: Albumin 2.9 g/dL (3.4-5.0); Bilirubin Total 0.4 mg/dL (0.2-1.0); C-Reactive Protein 5.46 mg/L (<3.00); Potassium 4.1 mmol/L (3.5-5.1); Protein, Total 7.8 g/dL (6.4-8.2); Uric Acid 4.4 mg/dL (2.6-6.0)
[2020-07-12] MEDS: carvediloL 25 MG TAB PO SCH ×2 (05:59→18:34)
[2020-07-12] MEDS: GABAPENTIN 300 MG CAP PO SCH ×2 (08:31→21:28)
[2020-07-12] MEDS: HEPARIN 5000 UNIT/ML 1 ML VIAL SQ SCH ×2 (08:32→21:29)
[2020-07-12] MEDS: CALCITROL 0.25 MCG CAP PO SCH (08:32)
[2020-07-12] MEDS: MULTIVITAMINS,THERAPEUT 1 TAB PO SCH (08:32)
[2020-07-12] MEDS: VITAMIN D 5,000 UNIT CAP PO SCH (08:32)
[2020-07-12] MEDS: DOCUSATE NA 100 MG CAP PO SCH ×2 (08:33→21:28)
[2020-07-12] MEDS ORDERED: NIFEDIPINE XL 90 MG TABLET PO SCH (09:00)
--- NOTE | 2020-07-12 09:22 | P.DS ---
Admission Date: 07/10/20 Discharge Date: 07/12/20 Primary Care Provider: Dr. Berry Disposition: DC HOME/HOME HEALTH CARE Discharge Condition: GOOD Reason for Admission: Congestive heart failure exacerbation/debility Consultations: Nephrology-Dr. Berry Neurology-Dr. Flores Procedures: CT Head: FINDINGS: No intracranial hemorrhage, mass, edema or shift of mid-line structures. No acute infarction changes seen. No abnormal extra-axial fluid collections. Mild to moderate for age atrophy changes are present. Ventricles are in proportion. Patient has advanced chronic ischemic pattern in the cerebral white matter extending into the left anterior horn internal capsule and basal ganglia. Mastoid air cells and visualized portions of the paranasal sinuses are clear. No acute bony findings. IMPRESSION: Atrophy and chronic ischemic changes are present. No hemorrhage, mass or acute intracranial finding identifiable. ECHO: Ejection fraction 63% LEFT VENTRICULAR WALL MOTION: DECREASED LEFT VENTRICULAR COMPLIANCE. TRACE OF AORTIC AND TRICUSPID REGURGITATION. DOPPLER/COLOR FLOW: TRACE OF AORTIC AND TRICUSPID REGURGITATION.COMMENTS: TRACE OF AORTIC AND TRICUSPID REGURGITATION. LEFT VENTRICULAR HYPERTROPHY EJECTION FRACTION 62%. DECREASED LEFT VENTRICULAR COMPLIANCE CONSISTANT WITH LINDA STOLIC DYSFUNCTION. MITRAL ANNULAR CALCIFICATION. AORTIC SCLEROSIS. CXR: FINDINGS: Lung volumes are low. There is some patchy interstitial and alveolar opacification that is generally less prominent than seen June 11. Mild cardiomegaly is present. Central vasculature and lung markings are prominent. Right-sided large diameter vascular access catheter is in place unchanged in position. No measurable pleural effusion and no pneumothorax. No acute bony abnormality seen. No acute aortic findings suspected. IMPRESSION: No focal mass or consolidation. Heart, vasculature and lung markings are prominent but to a lesser degree seen on June 11. Findings may still reflect a mild CHF/ volume overload. Follow up CXR: COMPARISON: July 10, 2020 FINDINGS: The lungs appear clear of acute infiltrate. The heart is borderline enlarged. Central venous catheter has its tip in right atrium IMPRESSION: No acute abnormalities displayed Medical Problem List: Acute on chronic diastolic Congestive heart failure exacerbation End-stage renal disease on dialysis Tuesday Asterixis with weakness likely metabolic in nature related to electrolyte abnormalities Essential hypertension History of drug abuse Nicotine dependence Brief History of Present Illness: 60-year-old female with history of end-stage renal disease on hemodialysis, diabetes, hypertension and CHF. Patient presented with increased fatigue and increased somnolence. Patient was evaluated in the emergency room. Patient found to have elevated BNP and chest x-ray showing volume overload. CT head unremarkable. Patient admitted for further evaluation and treatment. Hospital Course: Patient presented with acute on chronic diastolic CHF. Patient received dialysis with improvement. Echocardiogram shows normal ejection fraction and findings consistent with diastolic dysfunction. Patient has done well. Patient without significant shortness of breath. Chest x-ray shows improvement. At discharge she will continue with a 1500 cc per day fluid restriction and low- salt diet. Recommend to monitor her weight daily. If her weight increases more than 5 lb she is to contact nephrology for further recommendation. Patient with end-stage renal disease on hemodialysis. As stated above patient received dialysis with improvement of symptoms. At discharge she will continue with dialysis every Tuesday, Tuesday and Tuesday. Patient also had fatigue with asterixis. She also reported weakness to her lower legs. CT head unremarkable. Case discussed at length with Neurology. Neurology feels this is not Parkinson or essential tremor related. He suspect this is metabolic in nature likely electrolyte disturbance. After further discussion with family member, her medications had been adjusted over the past 2 months. It seems that her problems had increased over the past 2 months. This may be related to her blood pressure medication. She apparently was switched from Norvasc to Procardia. There is a side effect of increased shakiness with Procardia. Therefore will discontinue Procardia and switch her back to Norvasc. Patient continues with physical therapy. Patient has done well. At discharge will recommend home health and physical therapy at discharge. Recommend to monitor labs closely. Recommend follow up with neurology if symptoms persist Patient with hypertension. Blood pressure elevated. Medications adjusted as recommended above. Procardia was discontinued as this may be the cause of her shakiness. Patient will be placed back on Norvasc. Hydralazine was added. At discharge she will continue with carvedilol 25 mg 1 pill twice daily, Norvasc 10 mg daily, ramipril 10 mg daily and hydralazine 25 mg 1 pill twice daily. Recommend to monitor her blood pressure daily. Recommend to maintain blood pressure less 150/80. Further adjustment can be done by nephrology. Patient with tobacco abuse. Tobacco cessation addressed in detail. Patient with chronic pain. At discharge she may continue with Neurontin 300 mg twice daily and Zanaflex as needed for muscle spasm. Vital Signs/Physical Exam: Temp Pulse Resp BP Pulse Ox 97.4 F 78 18 199/101 H 97 07/11/20 20:00 07/12/20 08:41 07/11/20 20:00 07/12/20 08:41 07/11/20 20:00 Laboratory Data at Discharge: WBC 5.8 K/uL (4.3-10.9) 07/12/20 03:38 Hgb 9.9 g/dL (12.0-15.0) L 07/12/20 03:38 Hct 28.5 % (36.0-45.0) L 07/12/20 03:38 Plt Count 175 K/uL (152-406) 07/12/20 03:38 PT 12.1 SECONDS (9.5-12.5) 07/10/20 17:35 INR 1.03 07/10/20 17:35 Sodium 142 mmol/L (136-145) 07/12/20 03:38 Potassium 4.1 mmol/L (3.5-5.1) 07/12/20 03:38 BUN 46 mg/dL (7-18) H 07/12/20 03:38 Creatinine 7.04 mg/dL (0.55-1.3) H* D 07/12/20 03:38 Glucose 125 mg/dL (74-106) H 07/12/20 03:38 Uric Acid 4.4 mg/dL (2.6-6.0) 07/12/20 03:38 Phosphorus 7.0 mg/dL (2.5-4.9) H 07/12/20 03:38 Magnesium 2.2 mg/dL (1.8-2.4) 07/11/20 05:05 Total Bilirubin 0.4 mg/dL (0.2-1.0) 07/12/20 03:38 AST 23 U/L (15-37) 07/12/20 03:38 ALT 13 U/L (12-78) 07/12/20 03:38 Alkaline Phosphatase 73 U/L (45-117) 07/12/20 03:38 Home Medications: carvediloL [Coreg*] 25 mg PO BIDWM 01/30/19 ramipriL [Altace*] 10 mg PO BEDTIME #60 cap 04/29/20 Cetirizine HCl [Zyrtec] 10 mg PO DAILY 06/12/20 Gabapentin 300 mg PO BID 06/12/20 Tizanidine [Zanaflex*] 4 mg PO BID PRN 06/12/20 Amlodipine Besylate [Norvasc] 10 mg PO DAILY #30 tablet 07/12/20 Hydralazine [Apresoline*] 25 mg PO BID #60 tab 07/12/20 New Medications: Hydralazine [Apresoline*] 25 mg PO BID #60 tab Amlodipine Besylate [Norvasc] 10 mg PO DAILY #30 tablet Patient Discharge Instructions: 1. Recommend follow up with PCP in 1 week to follow up this hospitalization. 2. Patient presented with acute on chronic diastolic CHF. Patient received dialysis with improvement. Echocardiogram shows normal ejection fraction and findings consistent with diastolic dysfunction. Patient has done well. Patient without significant shortness of breath. Chest x-ray shows improvement. At discharge she will continue with a 1500 cc per day fluid restriction and low-salt diet. Recommend to monitor her weight daily. If her weight increases more than 5 lb she is to contact nephrology for further recommendation. 3. Patient with end-stage renal disease on hemodialysis. As stated above patient received dialysis with improvement of symptoms. At discharge she will continue with dialysis every Tuesday, Tuesday and Tuesday. 4. Patient also had fatigue with asterixis. She also reported weakness to her lower legs. CT head unremarkable. Case discussed at length with Neurology. Neurology feels this is not Parkinson or essential tremor related. He suspect this is metabolic in nature likely electrolyte disturbance. After further discussion with family member, her medications had been adjusted over the past 2 months. It seems that her problems had increased over the past 2 months. This may be related to her blood pressure medication. She apparently was switched from Norvasc to Procardia. There is a side effect of increased shakiness with Procardia. Therefore will discontinue Procardia and switch her back to Norvasc. Patient continues with physical therapy. Patient has done well. At discharge will recommend home health and physical therapy at discharge. Recommend to monitor labs closely. Recommend follow up with neurology if symptoms persist. 5. Patient with hypertension. Blood pressure elevated. Medications adjusted as recommended above. Procardia was d iscontinued as this may be the cause of her shakiness. Patient will be placed back on Norvasc. Hydralazine was added. At discharge she will continue with carvedilol 25 mg 1 pill twice daily, Norvasc 10 mg daily, ramipril 10 mg daily and hydralazine 25 mg 1 pill twice daily. Recommend to monitor her blood pressure daily. Recommend to maintain blood pressure less 150/80. Further adjustment can be done by nephrology. 6. Patient with tobacco abuse. Tobacco cessation addressed in detail. 7. Patient with chronic pain. At discharge she may continue with Neurontin 300 mg twice daily and Zanaflex as needed for muscle spasm. Diet: AHA Activity: Fall precautions Time spent managing pt's care (in minutes): 55
--- NOTE | 2020-07-12 10:46 | P.PN ---
Subjective Date of Service: 07/12/20 Primary Care Provider: Dr. Berry Chief Complaint: Congestive heart failure exacerbation/debility Subjective: No new changes (continues feel weak and have tremors) Review of Systems Respiratory: Unremarkable Cardiovascular: Unremarkable Gastrointestinal: Unremarkable Genitourinary: Unremarkable Neurological: Weakness, As per HPI Physical Examination - Vital Signs Temperature: 98.4 F Blood Pressure: 199/101 Pulse: 78 Respirations: 18 Pulse Ox (%): 100 - Physical Exam General: Alert, Oriented x3 HEENT: Atraumatic Respiratory: Clear to auscultation bilaterally Cardiovascular: No edema Gastrointestinal: Normal bowel sounds External genitalia: No edema - Studies Microbiology Data (last 24 hrs): 07/10/20 17:25 Nasopharnyx Coronavirus COVID-19 PCR - Final Medications List Reviewed: Yes Assessment And Plan Physician Review Additional Text: Impression: Acute on chronic diastolic Congestive heart failure exacerbation improved after dialysis End-stage renal disease on dialysis Tuesday Generalized debility/weakness Type 2 diabetes mellitus Essential hypertension History of drug abuse Nicotine dependence anemia sec to ESRD stable Plan: HD today home blood pressure medications adjusted continue all other meds and POC
[2020-07-12] MEDS: HYDRALAZINE HCL 25 MG TABLET PO SCH ×2 (10:54→21:29)
[2020-07-12] MEDS: AMLODIPINE 10 MG TAB PO SCH (10:54)
[2020-07-12] MEDS ORDERED: EPOETIN ALFA 10,000 UNIT/ML VIAL IV SCH (11:00)
--- NOTE | 2020-07-12 16:08 | P.PN ---
Subjective Date of Service: 07/12/20 Primary Care Provider: Dr. Berry Chief Complaint: Congestive heart failure exacerbation/debility Subjective: Other (Blood pressure still elevated. Patient still having some dizziness. Medications adjusted) Physical Examination - Vital Signs Temperature: 98.7 F Blood Pressure: 187/86 Pulse: 77 Respirations: 19 Pulse Ox (%): 100 - Physical Exam General: Alert HEENT: Atraumatic Neck: Supple Respiratory: Clear to auscultation bilaterally, Normal air movement Cardiovascular: Normal pulses Neurological: Other (Still on unstudy. Some dizziness noted.) - Studies Microbiology Data (last 24 hrs): 07/10/20 17:25 Nasopharnyx Coronavirus COVID-19 PCR - Final Medications List Reviewed: Yes Assessment & Plan Discharge Plan: Home Plan to discharge in: 24 Hours Physician Review Additional Text: Impression: Acute on chronic diastolic Congestive heart failure exacerbation Hypertension uncontrolled Asterixis, dizziness with weakness likely metabolic in nature related to electrolyte abnormalities and uncontrolled hypertension End-stage renal disease on dialysis History of drug abuse Nicotine dependence Chronic pain Plan: Acute on chronic diastolic Congestive heart failure exacerbation: Patient requiring dialysis today. Still with dizziness, unsteadiness and uncontrolled hypertension. Medications have been adjusted. Suspect asterixis related to Procardia. Will discontinue Procardia and put her back on Norvasc. Family reports Norvasc was changed Procardia but 2 months ago. Since that time she has been having some unsteadiness, shakiness and multiple admissions. This was discussed with nephrology. Will make changes to her medications for better control. Will add hydralazine. Continue to work with physical therapy. Fall precautions in place. Anticipate discharge in the next 24 hr with better control of blood pressure Hypertension uncontrolled: As above. Discontinue Procardia. Change to Norvasc. Add hydralazine for better control. Asterixis, dizziness with weakness likely metabolic in nature related to electrolyte abnormalities and uncontrolled hypertension: Suspect shakiness related to Procardia. This has been discontinued. Continue with above plan of care. End-stage renal disease on dialysis: Patient to get dialysis today. History of drug abuse: Stable Nicotine dependence: Encourage cessation Chronic pain: Continue medication Time Spent Managing Pts Care (In Minutes): 55
[2020-07-12] MEDS ORDERED: HYDRALAZINE HCL 25 MG TABLET PO SCH (21:00)
[2020-07-12] MEDS: ramipriL 5 MG CAP PO SCH (21:28)
[2020-07-13 01:56] VITALS: O2SAT 96
[2020-07-13] MEDS: carvediloL 25 MG TAB PO SCH (05:59)
[2020-07-13] MEDS: DOCUSATE NA 100 MG CAP PO SCH (08:52)
[2020-07-13] MEDS: HYDRALAZINE HCL 25 MG TABLET PO SCH (08:52)
[2020-07-13] MEDS: VITAMIN D 5,000 UNIT CAP PO SCH (08:53)
[2020-07-13] MEDS: GABAPENTIN 300 MG CAP PO SCH (08:53)
[2020-07-13] MEDS: HEPARIN 5000 UNIT/ML 1 ML VIAL SQ SCH (08:53)
[2020-07-13] MEDS: AMLODIPINE 10 MG TAB PO SCH (08:53)
[2020-07-13] MEDS: CALCITROL 0.25 MCG CAP PO SCH (08:54)
[2020-07-13] MEDS: MULTIVITAMINS,THERAPEUT 1 TAB PO SCH (08:54)
[2020-07-13] MEDS ORDERED: AMLODIPINE 10 MG TAB PO SCH (09:00)
--- NOTE | 2020-07-13 11:06 | P.DS ---
Admission Date: 07/10/20 Discharge Date: 07/13/20 Primary Care Provider: Dr. Berry Disposition: ROUTINE DISCHARGE Discharge Condition: GOOD Reason for Admission: Congestive heart failure exacerbation/debility Consultations: Nephrology-Dr. Berry Procedures: CT Head: FINDINGS: No intracranial hemorrhage, mass, edema or shift of mid-line str uctures. No acute infarction changes seen. No abnormal extra-axial fluid collections. Mild to moderate for age atrophy changes are present. Ventricles are in proportion. Patient has advanced chronic ischemic pattern in the cerebral white matter extending into the left anterior horn internal capsule and basal ganglia. Mastoid air cells and visualized portions of the paranasal sinuses are clear. No acute bony findings. IMPRESSION: Atrophy and chronic ischemic changes are present. No hemorrhage, mass or acute intracranial finding identifiable. ECHO: Ejection fraction 63% LEFT VENTRICULAR WALL MOTION: DECREASED LEFT VENTRICULAR COMPLIANCE. TRACE OF AORTIC AND TRICUSPID REGURGITATION. DOPPLER/COLOR FLOW: TRACE OF AORTIC AND TRICUSPID REGURGITATION.COMMENTS: TRACE OF AORTIC AND TRICUSPID REGURGITATION. LEFT VENTRICULAR HYPERTROPHY EJECTION FRACTION 62%. DECREASED LEFT VENTRICULAR COMPLIANCE CONSISTANT WITH DIASTOLIC DYSFUNCTION. MITRAL ANNULAR CALCIFICATION. AORTIC SCLEROSIS. CXR: FINDINGS: Lung volumes are low. There is some patchy interstitial and alveolar opacification that is generally less prominent than seen June 11. Mild cardiomegaly is present. Central vasculature and lung markings are prominent. Right-sided large diameter vascular access catheter is in place unchanged in position. No measurable pleural effusion and no pneumothorax. No acute bony abnormality seen. No acute aortic findings suspected. IMPRESSION: No focal mass or consolidation. Heart, vasculature and lung markings are prominent but to a lesser degree seen on June 11. Findings may still reflect a mild CHF/ volume overload. Follow up CXR: COMPARISON: July 10, 2020 FINDINGS: The lungs appear clear of acute infiltrate. The heart is borderline enlarged. Central venous catheter has its tip in right atrium IMPRESSION: No acute abnormalities displayed Medical Problem List: Acute on chronic diastolic Congestive heart failure exacerbation Hypertension uncontrolled Asterixis, dizziness with weakness likely metabolic in nature related to el ectrolyte abnormalities and uncontrolled hypertension End-stage renal disease on dialysis History of drug abuse Nicotine dependence Chronic pain Brief History of Present Illness: 60-year-old female with history of end-stage renal disease on hemodialysis, diabetes, hypertension and CHF. Patient presented with increased fatigue and increased somnolence. Patient was evaluated in the emergency room. Patient found to have elevated BNP and chest x-ray showing volume overload. CT head unremarkable. Patient admitted for further evaluation and treatment. Hospital Course: Patient presented with acute on chronic diastolic CHF. Patient received dialysis with improvement. Echocardiogram shows normal ejection fraction and findings consistent with diastolic dysfunction. Patient has done well. Patient without significant shortness of breath. Chest x-ray shows improvement. At discharge she will continue with a 1500 cc per day fluid restriction and low- salt diet. Recommend to monitor her weight daily. If her weight increases more than 5 lb she is to contact nephrology for further recommendation. Patient with end-stage renal disease on hemodialysis. As stated above patient received dialysis with improvement of symptoms. At discharge she will continue with dialysis every Tuesday, Tuesday and Tuesday. Patient also asterixis, dizziness with weakness. This is likely metabolic in nature related to electrolyte abnormality and uncontrolled hypertension. She reported weakness to her lower legs with shakiness. CT head unremarkable. Case discussed at length with Neurology. Neurology feels this is not Parkinson or essential tremor related. He suspect this is metabolic in nature likely electrolyte disturbance. After further discussion with family member, her medications had been adjusted over the past 2 months. It seems that her problems had increased over the past 2 months. This may be related to her blood pressure medication. She apparently was switched from Norvasc to Procardia. There is a side effect of increased shakiness with Procardia. Therefore will discontinue Procardia and switch her back to Norvasc. Blood pressure now improved. Patient able to ambulate. Shakiness appears to be improved as well. Patient continues with physical therapy. At discharge will recommend home health and physical therapy at discharge. Recommend to monitor labs closely. Recommend follow up with neurology if symptoms persist Patient with hypertension. Blood pressure elevated. Medications adjusted as recommended above. Procardia was discontinued as this may be the cause of her shakiness. Patient will be placed back on Norvasc. Hydralazine was added. At discharge she will continue with carvedilol 25 mg 1 pill twice daily, Norvasc 10 mg daily, ramipril 10 mg daily and hydralazine 25 mg 1 pill twice daily. Recommend to monitor her blood pressure daily. Recommend to maintain blood pressure less 150/80. Further adjustment can be done by nephrology. Patient with tobacco abuse. Tobacco cessation addressed in detail. Patient with chronic pain. At discharge she may continue with Neurontin 300 mg twice daily and Zanaflex as needed for muscle spasm. Vital Signs/Physical Exam: Temp Pulse Resp BP Pulse Ox 98.7 F 67 18 142/74 H 95 07/13/20 08:00 07/13/20 08:53 07/13/20 08:00 07/13/20 08:53 07/13/20 08:00 General: Alert, In no apparent distress, Oriented x3, Cooperative HEENT: Atraumatic Neck: Supple Respiratory: Clear to auscultation bilaterally, Normal air movement Cardiovascular: Normal pulses, Regular rate/rhythm Gastrointestinal: Normal bowel sounds, Soft and benign, Non-distended Neurological: Normal speech, Normal strength at 5/5 x4 extr, Normal tone, Normal affect Laboratory Data at Discharge: WBC 5.8 K/uL (4.3-10.9) 07/12/20 03:38 Hgb 9.9 g/dL (12.0-15.0) L 07/12/20 03:38 Hct 28.5 % (36.0-45.0) L 07/12/20 03:38 Plt Count 175 K/uL (152-406) 07/12/20 03:38 PT 12.1 SECONDS (9.5-12.5) 07/10/20 17:35 INR 1.03 07/10/20 17:35 Sodium 142 mmol/L (136-145) 07/12/20 03:38 Potassium 4.1 mmol/L (3.5-5.1) 07/12/20 03:38 BUN 46 mg/dL (7-18) H 07/12/20 03:38 Creatinine 7.04 mg/dL (0.55-1.3) H* D 07/12/20 03:38 Glucose 125 mg/dL (74-106) H 07/12/20 03:38 Uric Acid 4.4 mg/dL (2.6-6.0) 07/12/20 03:38 Phosphorus 7.0 mg/dL (2.5-4.9) H 07/12/20 03:38 Magnesium 2.2 mg/dL (1.8-2.4) 07/11/20 05:05 Total Bilirubin 0.4 mg/dL (0.2-1.0) 07/12/20 03:38 AST 23 U/L (15-37) 07/12/20 03:38 ALT 13 U/L (12-78) 07/12/20 03:38 Alkaline Phosphatase 73 U/L (45-117) 07/12/20 03:38 Home Medications: carvediloL [Coreg*] 25 mg PO BIDWM 01/30/19 ramipriL [Altace*] 10 mg PO BEDTIME #60 cap 04/29/20 Cetirizine HCl [Zyrtec] 10 mg PO DAILY 06/12/20 Gabapentin 300 mg PO BID 06/12/20 Tizanidine [Zanaflex*] 4 mg PO BID PRN 06/12/20 Amlodipine Besylate [Norvasc] 10 mg PO DAILY #30 tablet 07/12/20 Hydralazine [Apresoline*] 25 mg PO BID #60 tab 07/12/20 New Medications: Hydralazine [Apresoline*] 25 mg PO BID #60 tab Amlodipine Besylate [Norvasc] 10 mg PO DAILY #30 tablet Patient Discharge Instructions: 1. Recommend follow up with PCP in 1 week to follow up this hospitalization. 2. Patient presented with acute on chronic diastolic CHF. Patient received dialysis with improvement. Echocardiogram shows normal ejection fraction and findings consistent with diastolic dysfunction. Patient has done well. Patient without significant shortness of breath. Chest x-ray shows improvement. At discharge she will continue with a 1500 cc per day fluid restriction and low-salt diet. Recommend to monitor her weight daily. If her weight increases more than 5 lb she is to contact nep hrology for further recommendation. 3. Patient with end-stage renal disease on hemodialysis. As stated above patient received dialysis with improvement of symptoms. At discharge she will continue with dialysis every Tuesday, Tuesday and Tuesday. 4. Patient also asterixis, dizziness with weakness. This is likely metabolic in nature related to electrolyte abnormality and uncontrolled hypertension. She reported weakness to her lower legs with shakiness. CT head unremarkable. Case discussed at length with Neurology. Neurology feels this is not Parkinson or essential tremor related. He suspect this is metabolic in nature likely electrolyte disturbance. After further discussion with family member, her medications had been adjusted over the past 2 months. It seems that her problems had increased over the past 2 months. This may be related to her blood pressure medication. She apparently was switched from Norvasc to Procardia. There is a side effect of increased shakiness with Procardia. Therefore will discontinue Procardia and switch her back to Norvasc. Blood pressure now improved. Patient able to ambulate. Shakiness appears to be improved as well. Patient continues with physical therapy. At discharge will recommend home health and physical therapy at discharge. Recommend to monitor labs closely. Recommend follow up with neurology if symptoms persist. 5. P atient with hypertension. Blood pressure elevated. Medications adjusted as recommended above. Procardia was discontinued as this may be the cause of her shakiness. Patient will be placed back on Norvasc. Hydralazine was added. At discharge she will continue with carvedilol 25 mg 1 pill twice daily, Norvasc 10 mg daily, ramipril 10 mg daily and hydralazine 25 mg 1 pill twice daily. Recommend to monitor her blood pressure daily. Recommend to maintain blood pressure less 150/80. Further adjustment can be done by nephrology. 6. Patient with tobacco abuse. Tobacco cessation addressed in detail. 7. Patient with chronic pain. At discharge she may continue with Neurontin 300 mg twice daily and Zanaflex as needed for muscle spasm. Diet: AHA Activity: Fall precautions Time spent managing pt's care (in minutes): 55
[2020-07-13 12:50] VITALS: TEMP 97
--- NOTE | 2020-07-13 14:49 | P.PN ---
Subjective Date of Service: 07/13/20 Primary Care Provider: Dr. Berry Chief Complaint: Congestive heart failure exacerbation/debility Subjective: No new changes Review of Systems 10-point ROS is otherwise unremarkable Physical Examination - Vital Signs Temperature: 97.0 F Blood Pressure: 154/70 Pulse: 61 Respirations: 18 Pulse Ox (%): 95 - Physical Exam General: Alert, In no apparent distress HEENT: Atraumatic Neck: Supple, Without JVD or thyroid abnormality Respiratory: Clear to auscultation bilaterally Cardiovascular: No edema Gastrointestinal: Normal bowel sounds Integumentary: No rashes Neurological: Normal gait - Studies Medications List Reviewed: Yes Assessment And Plan Physician Review Additional Text: Impression: Acute on chronic diastolic Congestive heart failure exacerbation Hypertension uncontrolled Asterixis, dizziness with weakness likely metabolic in nature related to electrolyte abnormalities and uncontrolled hypertension End-stage renal disease on dialysis History of drug abuse Nicotine dependence Chronic pain Plan: doing better vol status improving ok to be discharged from nephrology stand point and advised compliance with out pt dialysis will monitor tremors off the procardia and follow up on blood pressures
[2020-07-13 16:07] VITALS: BP 164/79
[2020-07-17 19:25] LABS: HBsAG Nonreactive (Nonreactive)
== END 2020-07-13 17:00 | disposition home health service (06) | DRG 291 ==
LOC: ER 15:49 → INTOOBSV 19:57 → OBSVTOIN 19:57 → ERHOLD 19:57 → 2ND 20:52 → OBSVTOIN 07-12 16:57
PROVIDERS: ADMIT Family Medicine; ATTEND Family Medicine
PROC: 5A1D70Z Performance of Urinary Filtration, Intermittent, Less than 6 Hours Per Day (ICD-10-PCS; principal; 2020-07-12)
DX: I13.2 Hypertensive heart and chronic kidney disease with heart failure and with stage 5 chronic kidney disease, or end stage renal disease (principal); N18.6 End stage renal disease; I50.33 Acute on chronic diastolic (congestive) heart failure; N25.81 Secondary hyperparathyroidism of renal origin; E11.22 Type 2 diabetes mellitus with diabetic chronic kidney disease; F17.210 Nicotine dependence, cigarettes, uncomplicated; D63.1 Anemia in chronic kidney disease; N25.0 Renal osteodystrophy; E87.8 Other disorders of electrolyte and fluid balance, not elsewhere classified; I16.0 Hypertensive urgency; G89.29 Other chronic pain; R06.02 Shortness of breath; R25.1 Tremor, unspecified; R53.81 Other malaise; R27.8 Other lack of coordination; T46.1X5A Adverse effect of calcium-channel blockers, initial encounter; W01.0XXA Fall on same level from slipping, tripping and stumbling without subsequent striking against object, initial encounter; Z88.0 Allergy status to penicillin; Z79.899 Other long term (current) drug therapy; Z99.2 Dependence on renal dialysis; Z53.29 Procedure and treatment not carried out because of patient's decision for other reasons; Z20.828 Contact with and (suspected) exposure to other viral communicable diseases
CPT/HCPCS: 36415; 70450; 71045; 71046; 80048; 80053; 80076; 82947; 83735; 83880; 84100; 84145; 84484; 84550; 85025; 85610; 85652; 86140; 87040; 87340; 87804; 90935; 93005; 93306; 96374; 97112; 97116; 97161; 99285; G0378; J0360; J1644; J1940; Q5105; Q5106; U0002

== ENCOUNTER 2020-11-18 11:08 | Emergency (ER) | payer MEDICAID ==
--- OUTSIDE RECORDS SUMMARY | 2020-11-18 11:09 | XMS REPORT | Clinical Summary ---
:1960 Author Organization [facility] Address [address] [place] [address] Care Team Providers Name Role Phone Kei Rosemarie Primary Care Provider Allergies Active Allergy [...] Team Description 06/12/2020 Lab Requisition Lab after 11/18/2019 Social History Tobacco Use Types Packs/Day Years Used Date Never Assessed Sex Assigned at Date Recorded Not on file Last Filed Vital Signs Not on file Plan of Treatment Not on file Procedures Procedure Name Priority Date/Time Associated Diagnosis Comme nts SARS-COV2/RT-PCR Routine 06/11/2020 10:40 PM Resu lts for this ([facility]) CDT procedure are in the results section. after 11/18/2019 Results SARS-CoV2/RT-PCR ([facility]) (06/11/2020 10:40 PM CDT) SARS-COV2/RT-PCR Negative Not Detected, [facility] Specimen Other - Nasopharyngeal wall structure (b amy structure) Narrative Performed At Negative result for this test determines that [facility] SARS-CoV-2 RNA was not present in the [...] the Act. Fact Sheet for Healthcare Providers: https://www.[employer].com/sites/default/files/pro duct/documents/Fact_Sheet_HC_Providers_Lyra_SA RS-CoV-2.pdf Fact Sheet for Healthcare Patients: https://www.[employer].com/sites/default/files/pro duct/documents/Fact_Sheet_Patients_Lyra_SARS-C oV-2.pdf Performing Laboratory: [address] [place] [address] Performing Organization Address City/State/Zipcode Phone Number [address] [address] CENTER after 11/18/2019 Insurance Payer Benefit Plan / Subscriber ID Effective Dates Phone Addre ss Type Group [place] [id number] 2018-Present [id number]
--- OUTSIDE RECORDS SUMMARY | 2020-11-18 11:14 | XMS REPORT | Summary of Care ---
:1960 Author Organization [facility] Address [address] [place] [id number] Care Team Providers Name Role Phone [place] Medicaid Hmo Bianca Choudhury MD Primary Care Provider [phone] Reason for Visit Reason Comments Follow-up Cough Hypertension Kidney Problem CKD on HD CHRONIC BRONCHITIS VACCINATIONS Encounter Details Date Type Department Care Team Description 08/20/2020 Office Visit [facility] Brigido Aguila Asymptomat ic hypertensive urgency (Primary Dx); Pediatric and Adult MD ACC/AHA stage B congestive heart failure ; Primary Care- [address] [place] [address] Chronic kidney disease due to type 2 kathy betes mellitus; [place] [facility] [address] ESRD (end stage renal disease) on dialys is; [address] [place] [address] [phone] Idiopathic osteoarthritis; [facility], [address] Chronic pain of both knees; [place], [place] Controlle d type 2 diabetes mellitus with chronic kidney disease, without long-term current use of insulin, unspecified CKD stage; [address] Cigarette nicotine dependenc e without complication; [phone] Need for 23-rodrigo yvalent pneumococcal polysaccharide vaccine; Need for influe nza vaccination Allergies Active Allergy Reactions Severity Noted Date Comments Penicillins Hives High 06/14/2016 documented as of this encounter (statuses as of 08/20/2020) Medications Medication Sig Dispensed Refills Start End Status Date Date Blood-Glucose Meter Use as 1 Kit 0 Active (FREESTYLE SYSTEM KIT) directed. 6 KitIndications: Type 2 Brand per diabetes mellitus with patient. other specified complication lancets (FREESTYLE Once daily for 30 Each 5 Active LANCETS) 28 gauge [facility] DM II 7 blood sugar diagnostic Test blood 30 Strip Active (FREESTYLE INSULINX sugars daily 7 TEST STRIPS) strip for diabetes, Please give patient any brand of testing supplies she wants ERGOCALCIFEROL, Take by 0 Acti ve VITAMIN D2, (VITAMIN D mouth. ORAL) AMLODIPINE 10 mg TAKE 1 TABLET 30 tablet 11 Active tabletIndications: BY MOUTH ONCE 9 Essential hypertension DAILY CARVEDILOL 25 mg TAKE 1 TABLET 60 tablet 11 Active tabletIndications: BY MOUTH TWICE 9 ACC/AHA stage B DAILY WITH congestive heart MEALS failure, Essential hypertension gabapentin 300 mg Take 300 mg by 0 Active capsule mouth 2 (two) times daily. ramipril 5 mg capsule Take 5 mg by 0 Active mouth at bedtime. tiZANidine 4 mg Take 4 mg by 0 A ctive capsule mouth 2 (two) times daily. CETIRIZINE 10 mg Take 1 tablet 30 tablet 0 Active tabletIndications: by mouth once 0 Seasonal allergic daily rhinitis, unspecified trigger doxycycline hyclate Take 1 tablet 20 tablet 0 Active 100 mg by mouth 2 0 tabletIndications: (two) times Bronchitis daily. albuterol (VENTOLIN Inhale 2 Puffs 8.5 g 1 Active HFA) 90 mcg/actuation every 6 (six) 0 inhalerIndications: hours as Bronchitis needed for Wheezing or Shortness of Breath. methylPREDNISolone Take by mouth 21 Each 0 Active (MEDROL, NIRANJAN,) 4 mg SEE-INSTRUCTIO 0 tabletsIndications: NS. follow Bronchitis package directions nicotine 14 mg/24 hr Apply 1 Patch 14 Patch 0 Active patchIndications: to area(s) 0 Cigarette nicotine every 24 dependence without (twenty-four) complication hours. Apply 21mg patch daily x 6 weeks, then apply 14mg patch daily x 2 weeks, then apply 7 mg patch daily 2 weeks, stop smoking on initiation of therapy. nicotine 21 mg/24 hr Apply 1 Patch 42 Patch 0 Active patchIndications: to area(s) 0 Cigarette nicotine every 24 dependence without (twenty-four) complication hours. Apply 21mg patch daily x 6 weeks, then apply 14mg patch daily x 2 weeks, then apply 7 mg patch daily 2 weeks, stop smoking on initiation of therapy. nicotine 7 mg/24 hr Apply 1 Patch 14 Patch 0 Active patchIndications: to area(s) 0 Cigarette nicotine every 24 dependence without (twenty-four) complication hours. Apply 21mg patch daily x 6 weeks, then apply 14mg patch daily x 2 weeks, then apply 7 mg patch daily 2 weeks, stop smoking on initiation of therapy. potassium chloride 10 Take 1 tablet 60 tablet 0 Active mEq CR by mouth every 0 tabletIndications: Tuesday, ACC/AHA stage B and congestive heart Tuesday in the failure evening. furosemide 40 mg Take 1 tablet 60 tablet 2 Active tabletIndications: by mouth every 0 ACC/AHA stage B morning and congestive heart evening. failure, Asymptomatic hypertensive urgency hydrALAZINE 50 mg Take 1 tablet 90 tablet 2 Active tabletIndications: by mouth 3 0 ACC/AHA stage B (three) times congestive heart daily. failure, Asymptomatic hypertensive urgency acetaminophen 650 mg Take 1 tablet 30 tablet 1 Active CR tabletIndications: by mouth every 0 Idiopathic 8 (eight) osteoarthritis, hours as Chronic pain of both needed for knees Pain. Diclofenac Sodium Apply to 100 g 1 Ac tive (VOLTAREN) 1 % area(s) 3 0 gelIndications: (three) times Idiopathic daily. Apply osteoarthritis, two grams to Chronic pain of both affected areas knees three times daily traMADoL 50 mg Take 1 tablet 30 tablet 2 A ctive tabletIndications: by mouth every 0 chronic pain, chronic 8 (eight) right knee pain hours as (cannot take NSAID due needed for to CKD) Pain (scale 4-6). Indications: chronic pain, chronic right knee pain (cannot take NSAID due to CKD) Diclofenac Sodium Take 2-4 grams 100 g 3 Discontinued (VOLTAREN) 1 % twice a day as 9 020 (Reorder) gelIndications: needed for Chronic right shoulder pain pain, Left leg pain furosemide 20 mg Take 1 tablet 90 tablet 1 Discontinued tabletIndications: by mouth 0 020 ( Reorder) ACC/AHA stage B daily. congestive heart failure documented as of this encounter (statuses as of 08/20/2020) Active Problems Problem Noted Date Asymptomatic hypertensive urgency 08/20/2020 Need for 23-polyvalent pneumococcal polysaccharide vac cine 08/20/2020 Need for influenza vaccination 08/20/2020 Bronchitis 08/06/2020 Seasonal allergic rhinitis, unspecified trigger 2019 Cigarette nicotine dependence without complication 02/2020 Hospital discharge follow-up 05/01/2020 Acidosis 02/21/2020 Anemia in chronic kidney disease 02/21/2020 Bilateral knee pain 02/21/2020 Chronic kidney disease due to type 2 diabetes mellitus 02/21/2020 Dependence on renal dialysis 02/21/2020 Gastroesophageal reflux disease 02/21/2020 Hyperkalemia 02/21/2020 Idiopathic osteoarthritis 02/21/2020 Nephrogenous proteinuria 02/21/2020 Polyneuropathy due to type 2 diabetes mellitus 020 Renal osteodystrophy 02/21/2020 Secondary hyperparathyroidism 02/21/2020 Arteriovenous fistula stenosis, subsequent encounter 1 11/28/2016 Overview: Added automatically from request for min foy [id number] Obesity (BMI 30-39.9) 08/02/2017 ESRD (end stage renal disease) on dialysis 07/18/2017 Overview: Added automatically from request for min foy [id number] Elevated serum lactate dehydrogenase 02/11/2017 Essential hypertension 09/03/2016 Controlled type 2 diabetes mellitus with chronic kidne y disease, without 07/16/2016 long-term current use of insulin, unspecified CKD stag e ACC/AHA stage B congestive heart failure 07/07/2016 Chronic diastolic heart failure 07/07/2016 MOE (dyspnea on exertion) 07/07/2016 Edema of both legs 06/21/2016 HTN (hypertension) 06/14/2016 Bipolar 1 disorder documented as of this encounter (statuses as of 08/20/2020) Resolved Problems Problem Noted Date Resolved Date Acute kidney injury (nontraumatic) 06/14/201607/16 UTI (urinary tract infection) 06/14/2016 07/16/2016 DM (diabetes mellitus) 06/14/2016 07/16/2016 documented as of this encounter (statuses as of 08/20/2020) Immunizations Name Administration Dates Next Due Influenza Virus Vaccine Quad .5 mL IM 6+ MO 08/20/2020 Influenza Virus Vaccine Quad ID [id number] YRS 09/04/2018 Pneumococcal Polysaccharide, PPSV23 (PNEUMOVAX) 08/20/2020, 02/15/2017 documented as of this encounter Social History Tobacco Use Types Packs/Day Years Used Date Current Every Day Smoker 0.5 30 Smokeless Tobacco: Never Used Alcohol Use Drinks/Week oz/Week Comments Yes beer during the week to sleep Sex Assigned at Date Recorded Not on file COVID-19 Exposure Response Date Recorded In the last month, have you been in contact with No / Unsure 08/20/2020 1:42 PM CDT someone who was confirmed or suspected to have Coronavirus / COVID-19? documented as of this encounter Last Filed Vital Signs Vital Sign Reading Time Taken Comments Blood Pressure 180/85 08/20/2020 1:48 PM CDT Pulse 74 08/20/2020 1:48 PM CDT Temperature 36.9 C (98.4 F) 08/20/2020 1:48 PM CDT Respiratory Rate 18 08/20/2020 1:48 PM CDT Oxygen Saturation 96% 08/20/2020 1:48 PM CDT Inhaled Oxygen Concentration - - Weight 75.3 kg (166 lb 1.6 oz) 08/20/2020 1:48 PM CDT Height - - Body Mass Index 28.51 05/16/2020 1:48 PM CDT documented in this encounter Patient Instructions Patient InstructionsYoung Concepcion - 08/20/2020 1:40 PM CDT Patient Education Eating Heart-Healthy Food: Using [...] the DASH eating plan, visit: www.nhlbi.nih.gov/health/health-topics/topics/dash Yashira mcdonnell reviewed this educational content on 05/28/201919995982-3120 [employer]. [address] [place] [address], [place] [address]. All rights reserved. This information is not intended as a substitute for professional medical care. Always follow your healthcare professional's instructions. Patient Education COPD Flare-Up You have had a flare-up of your COPD. COPD (chronic obstructive pulmonary disease) is a common lung disease. It causes your airways to getirritated and narrower. This makes it harder for you to breathe. Emphysema and chronic bronchitis are both types of COPD. This is a long-term (chronic) condition. This means you always have it. Sometimes it gets worse. When this happens, it's called a flare-up. Symptoms of COPD People with COPD may have symptoms most of the time. In a flare-up, your symptoms get worse. These symptoms may mean you are having a flare-up: Shortness of breath, shallow or rapid breathing, or wheezing that gets worse Lung infection Cough that gets worse More mucus (or sputum), thicker mucus, or mucus of a different color Tiredness, less energy, or trouble doing your normal activities Fever Chest tightness Your symptoms dont get better even when you use your normal medicines, inhalers, and nebulizer Trouble talking You feel confused Causes of flare-ups Unfortunately, a flare-up can happen even if you did everything right. And even if you followed yourhealthcare providers instructions. Some causes of flare- ups are: Cold weather Smoking or secondhand smoke Use of e-cigarettes or vaping products Colds, the flu, or respiratory infections Air pollution Sudden change in the weather Dust, vapors, gases, irritating chemicals, or strong fumes Not taking your medicines as prescribed Indoor pollution such as burning wood, smoke from home cooking, or heating fuels Home care Here are some things you can do at home to treat a flare-up: Keep calm and try not to panic. This makes it harder to breathe, and keeps you from doing the right things. Dont smoke or be around others who are smoking. If you smoke, quit. Smoking is the main cause of COPD. Quitting will help you be able to better manage your COPD. Don't use e-cigarettes or vaping products either. Ask your healthcare provider about ways to help you quit smoking. Try to drink more fluids than normal during a flare-up, unless your healthcare provider has told you not to because of heart and kidney problems. More fluids can help loosen the mucus. Eat a healthy, balanced diet. This is important to staying as healthy as possible. So is trying to stay at your ideal weight. Being overweight or underweight can affect your health. Make sure you have a lot of fruits and vegetables every day. And also eat balanced portions of whole grains, lean meats and fish, and low-fat dairy products. Use your inhalers and nebulizer, if you have one, as you have been told to. When using a metered dose inhaler or nebulizer, it's very important to use the proper techniques. If you have any questions about how to use your device, contact your healthcare provider or refer to the user manual. If you were given antibiotics, take them until they are used up or your provider tells you to stop. Its important to finish the antibiotics, even though you feel better. This will make sure the infection has cleared. If you were given a steroid, finish it even if you feel better. Learn the names of your medicines, as well as how and when to use them. Talk with your provider about other conditions you have and their treatment and how it may affect your COPD. Oxygen may be prescribed if tests show that your blood contains too little oxygen. Ask your provider about long-term oxygen therapy. Coping tips for shortness of breath include: ? Exercise. Try to be as active as possible. This will improve energy levels and strengthen your muscles, so you can do more. ? Breathing methods. Ask your healthcare provider or nurse show you how to do pursed-lip breathing. ? Balance rest and activity. Each day, try to balance rest periods with activity. For example, you might start the day with getting dressed and eating breakfast. Then you can relax and read the paper. After that, take a brief walk. And then sit with your feet up for a while. ? Pulmonary rehab (rehabilitation). Community-based and home-based programs work as well as hospital-based programs as long as they are as often and as intense. Standard home-based pulmonary rehab programs help shortness of breath in people with COPD. Supervised, traditional pulmonary rehab remains the best option for people with COPD. These programs help with managing your disease, and also help with breathing methods, exercise, support, and counseling. To find one, ask your provider or call your local hospital. Also talk with your healthcare provider about which rehab or self-management program is best for you. Preventing a flare-up Flare-ups happen. But the best way to treat one is to prevent it before it starts. Here are some pointers: Dont smoke or be around others who are smoking. Avoid using e-cigarettes due to their harmful side effects. Take your medicines as discussed with your healthcare provider. Talk with your provider about getting a flu shot every year. Also find out if you need a pneumonia shot. If there is a weather advisory warning to stay indoors, try to stay inside when possible. Try to eat healthy, exercise, and get plenty of sleep. Try to stay away from things that normally set you off. These include dust, chemical fumes, hairsprays, or strong perfumes. Follow-up care Follow up with your healthcare provider, or as advised. If a culture was done, you will be told if your treatment needs to be changed. You can call as directedfor the results. If X-rays were done, you will be told of any new findings that may affect your care. During each appointment, talk with your healthcare provider about your ability to: [place] in your normal environment Correctly use inhaler (or your medicine delivery systems) [place] with other conditions you have and their treatments and how they may affect your COPD Call 911 Call 911 if any of these occur: Wheezing or shortness or breath does not get better with treatment Chest pain or chest tightness Feeling lightheaded or dizzy You have trouble breathing You feel confused or its hard to wake you up You faint or lose consciousness You have a rapid heart rate You have new pain in your chest, arm, shoulder, neck, or upper back When to seek medical advice Call your healthcare provider right awayifany of these occur: Fever of 100.4F(38C) or higher, or as directed by your healthcare provider Coughing up lots of dark-colored or bloody mucus (sputum) You don't start to get better within 24 hours Swelling of your ankles gets worse Weakness Yashira last reviewed this educational content on 02/26/201919995952-2037 [employer], [employer]. [address] [place] [address]. All rights reserved. This information is not intended as a substitute for professional medical care. Always follow your healthcare professional's instructions. documented in this encounter Progress Notes Shantelle Lambert RN - 08/20/2020 1:40 PM CDT60 year old female has been identified by and name. Verbal consent has been obtained by patientto have an injection, as ordered by the provider. NDC (National Drug Code) influenza, Pneumovax 23. Patient or state-supplied medications?: no Has ABN (Advanced Beneficiary Notice) been completed? No Previous/Current Encounter Diagnosis: The site was cleaned with an alcohol swab and given intramuscularly (IM). A band aid dressing was then applied to the injection site. The patient tolerated the procedure well . Patient provided with preferred teaching of verbal information on Anaphylaxis. Shows readiness to learn. Verbal/Written instruction teaching provided. Individual is able to read and verbalizes understanding of teaching provided. Signs and Symptoms of Anaphylaxis (severe allergic reaction) are: Tingling, itching or metallic taste in mouth; hives; difficulty breathing; swelling and/or itching of mouth and/or throat; diarrhea, vomiting, cramps and stomach pain; paleness; loss of consciousness. IF YOU HAVE ANY OF THE SYMPTOMS ABOVE, ACT FAST!!! CALL 911 IMMEDIATELY IF YOU HAVE A PRESCRIBED EPI-PEN PLEASE USE IT NOW. Brigido Aguila MD - 08/20/2020 1:40 PM CDT CC: Follow-up, Cough, Hypertension, Kidney Problem (CKD on HD), CHRONIC BRONCHITIS, and VACCINATIONS HPI Patient is a 60 year old female who has a past medical history of Bipolar 1 disorder (1999), Chronic diastolic (congestive) heart failure, CKD (chronic kidney disease), Diabetes mellitus, History of asthma, and Hypertension. Patient presents for follow-up. BP is elevated on arrival, 180/85, on Coreg 25mg BID, Amlodipine 10mg qDay. Patient was started on Furosemide, reports she is taking medication, though she notes "not being able to read". DOP helps with dispensing medications. Patient has CKD on HD Tues[place], [place], last HD was 08/19/2020. Patient is established with external Nephrologists, last appointment was 08/14/2020 at HD center. Patient reports productive cough thinks symptoms worsening, CXR was ordered on last visit, pending completion, patient was started on Doxycycline, with Medrol Niranjan and Inhaler, patient state she had notpicked up medications yet from the pharmacy. COVID-19 was negative 08/06/2020. 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 Last A1c was 4 about three months ago, reports some changes in diet. HISTORY Past Medical History: Diagnosis Date Bipolar 1 disorder 1999 Chronic diastolic (congestive) heart failure CKD (chronic kidney disease) close to dialysis, follows with Dr. Berry Diabetes mellitus History of asthma Hypertension Family History Problem Relation Age of Onset Heart Mother High cholesterol Mother Hypertension Mother Diabetes Mother Diabetes Sister Other - see comments Sister Other - see comments Sister Diabetes Sister Diabetes Sister Diabetes Sister Family Status Relation Name Status Mo Fa Sis Sis Sis Sis Alive Sis Alive Sis Alive Past Surgical History: Procedure Laterality Date APPENDECTOMY ARTERIOVENOUS FISTULA REVISION Left 10/07/2017 Surgeon: Leonard Echeverria MD; Location: [facility] OR [facility] CENTRAL VENOUS ACCESS CATHETER PLACEMENT Left 08/02/2017 Surgeon: Leonard Echeverria MD; Location: [facility] OR [facility] TONSILLECTOMY Social History Socioeconomic History Marital status: Spouse name: Not on file Number of children: Not on file Years of education: Not on file Highest education level: Not on file Occupational History Not on file Social Needs Financial resource strain: Not on file Food insecurity Worry: Not on file Inability: Not on file Transportation needs Medical: Not on file Non-medical: Not on [...] Condom Comment: patient denies abuse Lifestyle Physical activity Days per week: Not on file Minutes per session: Not on file Stress: Not on file Relationships Social connections Talks on phone: Not on file Gets together: Not on file Attends taoist service: Not on file Active member of club or organization: Not on file Attends meetings of clubs or organizations: Not on file Relationship status: Not on file Intimate partner violence Fear of current or ex partner: Not on file Emotionally abused: Not on file Physically abused: Not on file Forced sexual activity: Not on file Other Topics Concern Not on file Social History Narrative Lives with her daughter, she is looking for a place. Review of Systems Constitutional: Positive for fatigue. Negative for weight gain and weight loss. Eyes: Positive for visual disturbance. 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 Negative for shortness of breath. Small amount of mucus production Cardiovascular: Negative for chest pain, palpitations and leg swelling. Gastrointestinal: Positive for diarrhea. Genitourinary: Positive for decreased urine volume. Has been having issues with keeping hydrated Skin: Negative for color change. Hematological: Positive for cold intolerance. Endocrine: Positive for cold intolerance. Negative for weight gain and weight loss. BP (!) 180/85 | Pulse 74 | Temp 36.9 C (98.4 F) (Oral) | Resp 18 | Wt 166 lb 1.6 oz (75.3 kg) | SpO2 96% | BMI 28.51 kg/m Physical Exam Constitutional: She is oriented to person, place, and time and well-developed, well-nourished, and in no distress. No distress. HENT: Head: Normocephalic and atraumatic. Eyes: Pupils are equal, round, and reactive to light. Neck: Normal range of motion. Neck supple. No tracheal deviation present. Cardiovascular: Normal rate and regular rhythm. No murmur heard. Pulmonary/Chest: Effort normal. No respiratory distress. She has wheezes. She has rales. She exhibits no tenderness. Abdominal: Soft. Bowel sounds are normal. Musculoskeletal: Normal range of motion. General: No edema. Neurological: She is alert and oriented to person, place, and time. Skin: Skin is warm. Psychiatric: Judgment normal. ASSESSMENT/PLAN ACC/AHA stage B congestive heart failure - BP uncontrolled on arrival. Patient is not compliance with medication. Complicated by CKD and renovascular HTT, on HD T//S. Medication compliance discussed. - Advised to keep Home BP log and call clinic if changes. Goal > 110/60 and < 150/90. - Patient to continue on Coreg 25mg BID, Furosemide 40mg BID with KCL and Amlodipine 10mg qDay. Willadd Hydralazine 50mg will f/u with Cardiology, need ECHO, appointment pending - ECHO ROUTINE W/DOPPLER COLOR Preferred Location: [facility]; Future, pending - CONSULT/REFERRAL CARDIOLOGY, pending appointment Chronic kidney disease due to type 2 diabetes mellitus - Complicated by DM-II currently controlled, monitor, continue with HD as scheduled - Patient is established with external Nephrology, will f/u as scheduled. Bronchitis - COVID-9 negative on 08/06/2020 - Complicated by chronic cigarette use - Continue and completed Doxycycline 100 mg BID, Inhaler PRN, and Medrol Niranjan - COVID-19 (PCR MOLECULAR TESTING); Future - XR CHEST 2 VW; Future - pending - CONSULT/REFERRAL PULMONARY - pending Cigarette nicotine dependence without complication - Patient continues to smoke 1/2 PPD, benefits of cessation discussed > 10 mins. - Apply 1 Patch to area(s) every 24 (twenty-four) hours. Apply 21mg patch daily x 6 weeks, then apply 14mg patch daily x 2 weeks, then apply 7 mg patch daily 2 weeks, stop smoking on initiation of therapy. Patient having financial difficulty at this time. Preventive Care: Medication reconciliation, patient education and anticipatory guidance completed. All questions and concerns addressed. AVS given, handout provided. Return in about 3 months (around 11/19/2020), or if symptoms worsen or fail to improve. Young Concepcion MS3 08/20/2020 2:36 PM I personally examined the patient on 08/20/2020 and agree with MS 3 (Young Concepcion) note as written,including any changes or additions to the medical student's note. I actively participated in the decision making process. Please see note for additional details. Brigido Aguila MD, MPH, AAHIVS Clinical Commercial Front Load Driver, Department of Family Medicine [facility] Primary & Specialty Care - ADC 08/20/2020 3:23 PM Future Appointments In 3 months Brigido Aguila MD [facility] Pediatric and Adult Primary Care- [facility] documented in this encounter Plan of Treatment Date Type Specialty Care Team Description 11/19/2020 Office Visit Family Medicine Brigido Aguila MD [address] [place] [address] [place], [place] [address] [phone] Health Maintenance Due Date Last Done Comments FOOT EXAM 1977 DTaP,Tdap,and Td Vaccines (1 - 1978 Tdap) PAP SMEAR 1980 Breast Cancer Screening 1999 (MAMMOGRAM) COLON CANCER SCREENING ANNUAL 2009 FIT/FOBT COLON CANCER SCREENING FIT DNA 2009 EVERY 3 YEARS COLON CANCER SCREENING 2009 SIGMOIDOSCOPY EVERY 5 YEARS COLONOSCOPY 2009 Colorectal Cancer Screening 2009 Zoster Recombinant Vaccine 2009 (SHINGRIX) (1 of 2) LUNG CANCER SCREEN: Recommended 2014 for age 55-80 with 30 + pack year history EYE EXAM 12/26/2019 12/26/2018 HgA1C 02/17/2021 08/20/2020, 05/01/2020, 09/04/2018, Additional history exists CREATININE (SERUM) 05/01/2021 05/01/2020, 01/29/2019, 01/18/2019, Additional history exists LDL-C 05/01/2021 05/01/2020, 06/15/2016 Depression Screening 05/16/2021 05/16/2020 PNEUMOCOCCAL 0-64 YEARS COMBINED 08/20/2021 08/20/2020, SERIES (3 of 3 - PCV13) HEPATITIS C (HCV) SCREEN Completed 01/29/2019, 01/18/2019 INFLUENZA VACCINE Completed 08/20/2020 documented as of this encounter Implants Implanted Type Area Personnel Officer Device Shelf Model / Identifier Expiration Serial / Date Lot Xenosure Biological Patch PATCH Left: Arm [employer] 03/25/2023 [id number] / Implanted: Qty: 1 on 10/07/2017 by Leonard Echeverria MD at [facility] [id number] / [id number] documented as of this encounter Procedures Procedure Name Priority Date/Time Associated Diagnosis Comme nts POCT HEMOGLOBIN A1C Routine 08/20/2020 3:09 Controlled type 2 Results for this TEST PM CDT diabetes mellitus with proce dure are in chronic kidney the results disease, without section. long-term current use of insulin, unspecified CKD stage FLU VACC Routine 08/20/2020 2:48 Need for influenza ([id number]), 6+ PM CDT vaccination MONTHS, IM, QUAD PNEUMOCOCCAL Routine 08/20/2020 2:48 Need for 23-polyvalent VACCINE, 23-VALENT PM CDT pneumococcal (PNEUMOVAX) polysaccharide vaccine documented in this encounter Results POCT HEMOGLOBIN A1C TEST (08/20/2020 3:09 PM CDT) Pathologist Sig nature POCT HBA1C 4.4 4 - 6 % Specimen Blood - CAPILLARY documented in this encounter Visit Diagnoses Diagnosis Asymptomatic hypertensive urgency - Prim sherif ACC/AHA stage B congestive heart failure Chronic kidney disease due to type 2 kathy betes mellitus ESRD (end stage renal disease) on dialys is End stage renal disease Idiopathic osteoarthritis Osteoarthrosis, unspecified whether gene ralized or localized, unspecified site Chronic pain of both knees Controlled type 2 diabetes mellitus with chronic kidney disease, without long-term current use of insulin, unspecified CKD stage Cigarette nicotine dependence without co mplication Tobacco use disorder Need for 23-polyvalent pneumococcal poly saccharide vaccine Need for influenza vaccination Need for prophylactic vaccination and in oculation against influenza documented in this encounter Insurance Payer Benefit Plan / Subscriber ID Effective Phone Address T ype Group Dates UNIQUE CALHOUN [id number] 2012-[address]ian [address] Medic [facility] [place] [address] MANAGED MEDICAID [place], [place]ICA[place] [address] documented as of this encounter
--- OUTSIDE RECORDS SUMMARY | 2020-11-18 11:14 | XMS REPORT | Continuity of Care Document ---
:1960 Author Organization [facility] t Address [address] [place] [address] Care Team Providers Name Role Phone Bianca Choudhury Primary Care Physician [phone] Kei COOK, A Attending Clinician Mingo COOK Attending Clinician Payers Payer Name Policy Type Policy Effective Date Expiration Date Sour ce Number CALHOUN [id number] 2018 [facility] MEDICAIDMEDICAID 00:00:00 - Medica l [id number]/ Ce nter 9-Present Problems This patient has no known problems. Allergies, Adverse Reactions, Alerts Allergy Allergy Status Severity Reaction(s) Onset Inactive Treating Comm ents Source Name Type Date Date Clinician Penicill Drug Active Hives, [facility] ins Allergy Swelling 3-11 [facility] - 00:00: Medical 00 [facility] Social History Social Habit Start Date Stop Date Quantity Comments Source Sex Assigned At [facility] Medications Ordered Filled Start Stop Current Ordering Indication Dosage Frequency Signature Comments Components Source Medication Medication Date Date Medication? Clinician (SIG) Name Name amLODIPine Yes 10mg QD Take [address] (NORVASC) 3-13 by mouth [facility] - 10 MG 11:30: daily. Medical tablet 30 Center carvedilol Yes 25mg Take [address] (COREG) 25 3-13 by mouth 2 Erick es - MG tablet 11:30: (two) Medical 30 times Center daily with breakfast and dinner. cholecalcif 2019-0 Yes 1000U QD Take 1,[address] [facility] jacob 3-13 Units by [facility] - (VITAMIN 11:30: mouth Medical D3) 1,000 30 daily. Center unit tablet furosemide 2019-0 Yes 40mg Q.5D Take [address] (LASIX) 40 3-13 by mouth 2 Erick es - MG tablet 11:30: (two) Medical 30 times Center daily. Procedures Procedure Date / Time Performed Performing Clinician Sour e SARS-COV2/RT-PCR ([facility] 2020-06-11 22:40:00 [facility] Medical Center Encounters Start End Encounter Admission Attending Care Care Encounter Source Date/Time Date/Time Type Type Clinicians Facility Department ID 2020-09-23 2020-09-23 [facility] [id number] 00:00:00 00:00:00 Bianca Tony [id number] [place] [id number] Professio [id number] [facility] 231 [facility] 2020-08-20 2020-08-20 Office [facility] [id number] 13:42:32 15:04:00 Visit Brigido Tony [id number] [place] [id number] Professio [phone] [address] Results Test Description Test Time Test Comments Results Result Comments Source SARS-CoV2/RT-PCR ([facility] & Ref Labs) 2020-06-12 13:15:00 Test Item Value Reference Range Interpretation Comme nts SARS-COV2/RT-PCR (test code = Negative Not Detected, Negative 96205-5) SARS-COV-2 PERFORMING LAB [facility] (test code = 48850-2) ERIK (test code = ERIK) Negative result [...] of the Act. Fact Sheet for Healthcare Providers:https://www.Mailsuite. WorldAPP/sites/default/files/produ ct/documents/Fact_Sheet_HC_Pr rcizeae_Drqh_XSIO-TjH-0.pdf Fact Sheet for Healthcare Patients:https://www.Mailsuite.SouthWing om/sites/default/files/produc t/documents/Fact_Sheet_Patien bg_Mnbr_NDBJ-JtW-1.pdf Performing Laboratory:[facility], [place] [address] [place], [place] [address]ARS-COV2/RT-PCR ([facility] REF LABS)2020-06-12 13:15:00 Test Item Value Reference Range Interpretation Comments SARS-COV2/RT-PCR (test code = Negative Not Detected, Negative [id number]) SARS-COV-2 PERFORMING LAB [facility] (test code = 7971368) Negative result for this test determines that [...] 564(g) of the Act.Fact Sheet for Healthcare Providers:https://www.Mailsuite.WorldAPP/sites/default/files/product/documents/Fact_Shee w_DL_Iptecxsea_Cwqf_LFQU-VsP-2.pdfFact Sheet for Healthcare Patients:https://www.Mailsuite.WorldAPP/sites/default/files/product/ documents/Crva_Elfgf_Peevjfdd_Kjbo_TWAL-QgO-3.pdfPerforming Laboratory:[facility], [place] [address]QAD, CV ACCESS, [id number] 17:37:00FINAL REPORT History: Renal failure, need for [...] MDReport Verified Date/Time: 02/07/2019 17:37:01 Reading Location: [place] [address] Angio Body Reading Room
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
--- OUTSIDE RECORDS SUMMARY | 2020-11-18 11:18 | XMS REPORT | Summary of Care ---
:1960 Author Organization [facility] - [facility] Address [address] [place] [address] Care Team Providers Name Role Phone Ventura Camarena Medicaid Hmo Bianca Choudhury MD Primary Care Provider Reason for Visit Reason Comments Refill Request Encounter Details Date Type Department Care Team Description 09/23/2020 Refill [facility] Pediatric and Maty Choudhury, Refill Request Adult Primary Care- MD Tony [address] [place] [address] [address] [place] [address] [address] [place] [address] [place] [address] [phone] Allergies Active Allergy Reactions Severity Noted Date Comments Penicillins Hives High 06/14/2016 documented as of this encounter (statuses as of 09/28/2020) Medications Medication Sig Dispensed Refills Start End Date Status Date Blood-Glucose Meter Use as 1 Kit 0 Active (FREESTYLE SYSTEM KIT) directed. 6 KitIndications: Type 2 Brand per diabetes mellitus with patient. other specified complication lancets (FREESTYLE Once daily for 30 Each 5 Active LANCETS) 28 gauge [facility] DM II 7 blood sugar diagnostic Test blood 30 Strip 5 Active (FREESTYLE INSULINX sugars daily 7 TEST STRIPS) strip for diabetes, Please give patient any brand of testing supplies she wants ERGOCALCIFEROL, VITAMIN Take by 0 Active D2, (VITAMIN D ORAL) mouth. AMLODIPINE 10 mg TAKE 1 TABLET 30 tablet 11 Active tabletIndications: BY MOUTH ONCE 9 Essential hypertension DAILY gabapentin 300 mg Take 300 mg by 0 Active capsule mouth 2 (two) times daily. ramipril 5 mg capsule Take 5 mg by 0 Active mouth at bedtime. tiZANidine 4 mg capsule Take 4 mg by 0 Active mouth 2 (two) times daily. CETIRIZINE 10 mg Take 1 tablet 30 tablet 0 Active tabletIndications: by mouth once 0 Seasonal allergic daily rhinitis, unspecified trigger doxycycline hyclate 100 Take 1 tablet 20 tablet 0 Active mg tabletIndications: by mouth 2 0 Bronchitis (two) times daily. albuterol (VENTOLIN Inhale 2 Puffs 8.5 [...] failure, Asymptomatic hypertensive urgency acetaminophen 650 mg CR Take 1 tablet 30 tablet 1 Active tabletIndications: by mouth every 0 Idiopathic 8 (eight) osteoarthritis, Chronic hours as pain of both knees needed for Pain. Diclofenac Sodium Apply to 100 g 1 Ac tive (VOLTAREN) 1 % area(s) 3 0 gelIndications: (three) times Idiopathic daily. Apply osteoarthritis, Chronic two grams to pain of both knees affected areas three times daily traMADoL 50 mg Take 1 tablet 30 tablet 2 A ctive tabletIndications: by mouth every 0 chronic pain, chronic 8 (eight) right knee pain (cannot hours as take NSAID due to CKD) needed for Pain (scale 4-6). Indications: chronic pain, chronic right knee pain (cannot take NSAID due to CKD) CARVEDILOL 25 mg TAKE 1 TABLET 60 tablet 0 Active tabletIndications: BY MOUTH TWICE 0 ACC/AHA stage B DAILY WITH congestive heart MEALS failure, Essential hypertension CARVEDILOL 25 mg TAKE 1 TABLET 60 tablet 11 09/28/20 Discontinued tabletIndications: BY MOUTH TWICE 9 20 ACC/AHA stage B DAILY WITH congestive heart MEALS failure, Essential hypertension documented as of this encounter (statuses as of 09/28/2020) Active Problems Problem Noted Date Asymptomatic hypertensive [...] Added automatically from request for min foy [id number] Obesity (BMI 30-39.9) 08/02/2017 ESRD (end stage renal disease) on dialysis 07/18/2017 Overview: Added automatically from request for min foy [id number] Elevated serum lactate dehydrogenase 02/11/2017 Essential hypertension [...] as of this encounter (statuses as of 09/28/2020) Resolved Problems Problem Noted Date Resolved Date Acute kidney injury (nontraumatic) 06/14/201607/16 UTI (urinary tract infection) 06/14/2016 07/16/2016 DM (diabetes mellitus) 06/14/2016 07/16/2016 documented as of this encounter (statuses as of 09/28/2020) Immunizations Name Administration Dates Next Due Influenza [...] Assigned at Date Recorded Not on file documented as of this encounter Last Filed Vital Signs Not on filedocumented in this encounter Plan of Treatment Date Type Specialty Care Team Description 11/19/2020 Office Visit Family Medicine Brigido Aguila MD [address] [place] [address] [address] [place] [address] [phone] Health Maintenance Due Date Last Done Comments [...] of this encounter Implants Implanted Type Area Air Bag Stripper Device Shelf Model / Identifier Expiration Serial / Date Lot Xenosure Biological Patch PATCH Left: Arm [employer] 03/25/2023 E0.8P8 / Implanted: Qty: 1 on 10/07/2017 by Leonard Echeverria MD at [facility] [id number] / [id number] documented as of this encounter Results Not on filedocumented in this encounter Visit Diagnoses Diagnosis ACC/AHA stage B congestive heart failure Essential hypertension Unspecified essential hypertension documented in this encounter Insurance Payer Benefit Plan / Subscriber ID Effective Phone Address T e Group Dates UNIQUE CALHOUN [id number] 2012-[address] Medic [place] [address] MANAGED MED[place]ID [place], [place] documented as of this encounter
[2020-11-18] MEDS ORDERED: HYDRALAZINE HCL 20 MG/ML VIAL ONE (11:40)
[2020-11-18] MEDS ORDERED: HYDRALAZINE HCL 10 MG TABLET ONE (11:41)
--- NOTE | 2020-11-18 11:56 | RAD REPORT ---
EXAM DESCRIPTION: CTThoracic Spine W/o Cont11/18/2020 11:39 am CLINICAL HISTORY: Back injury with Back pain with radiculopathy status post fall COMPARISON: None TECHNIQUE: Computed axial tomography of thoracic spine was obtained with coronal and sagittal recons truction. All CT scans are performed using dose optimization technique as appropriate and may include automated exposure control or mA/KV adjustment according to patient size. FINDINGS: No fracture is seen. No dislocation is noted. No high-grade stenosis IMPRESSION: Negative for a thoracic fracture If the patient has clinical symptoms to suggest spinal cord pathology then MRI would be recommended.
[2020-11-18] MEDS ORDERED: HYDRALAZINE HCL 25 MG TABLET PO ONE (12:00)
--- NOTE | 2020-11-18 12:08 | RAD REPORT ---
EXAM DESCRIPTION: CT - Head C Spine Mpr Wo Con - 11/18/2020 11:39 am CLINICAL HISTORY: Head and neck injury status post fall. Head and neck pain COMPARISON: June 2020 TECHNIQUE: Computed axial tomography of the head and cervical spine was obtained. Sagittal and coronal reconstruction was performed. All CT scans are performed using dose optimization technique as appropriate and may include automated exposure control or mA/KV adjustment according to patient size. FINDINGS: An intracranial bleed is not seen. The ventricles are normal in caliber. An extra-axial fl uid collection is not noted. A cervical fracture is not visualized. No dislocation is noted. Moderate central calcified disc herni ation suspected C3-4 IMPRESSION: No acute intracranial abnormality is seen. A cervical fracture is not visualized. A moderate central calcified disc herniation suspected C3-4 If the patient continues to have symptoms to suggest intracranial /spinal cord pathology then MRI wou ld be recommended
[2020-11-18 12:38] LABS: Absolute Lymphocytes (CBC) 1.5 K/uL (0.7-4.9); Basophils % 0.5 % (0-1.3); Hematocrit 33.9 % (36.0-45.0); Lymphocytes % 26.6 % (15.3-44.8); MPV 8.7 fL (7.6-11.3); RBC Red Blood Cell Count 3.48 M/uL (3.86-4.86)
[2020-11-18 12:49] LABS: Magnesium 2.3 mg/dL (1.8-2.4)
--- NOTE | 2020-11-18 13:16 | ER ---
Nurse's Notes [facility] Name: Dennise Harris Age: 60 yrs Sex: Female : 1960 Arrival Date: 11/18/2020 Time: 11:10 Bed 4 Private MD: Diagnosis: Hypertensive heart and chronic kidney disease Presentation: 11/18 11:10 Chief complaint: EMS states: Toned out by [facility] for high BP, BP 228/101, pt jl7 reports VELASQUEZ, no other complaints. Pt states "I need dialysis today.". Coronavirus screen: Client denies travel out of the [place] in the last 14 days. At this time, the client does not indicate any symptoms associated with coronavirus-19. Ebola Screen: No symptoms or risks identified at this time. Initial Sepsis Screen: Does the patient meet any 2 criteria? No. Patient's initial sepsis screen is negative. Does the patient have a suspected source of infection? No. Patient's initial sepsis screen is negative. Risk Assessment: Do you want to hurt yourself or someone else? Patient reports no desire to harm self or others. Onset of symptoms was November 18, 2020. Care prior to arrival: None. 11:10 Method Of Arrival: EMS: [facility] jl7 11:10 Acuity: FAWAD 3 jl7 Triage Assessment: 11:17 General: Appears in no apparent distress. uncomfortable, Behavior is calm, cooperative. jl7 Pain: Complains of pain in VELASQUEZ Pain currently is 7 out of 10 on a pain scale. Neuro: Level of Consciousness is awake, alert, obeys commands, Oriented to person, place, time, situation. Cardiovascular: Denies chest pain, Patient's skin is warm and dry. Respiratory: Airway is patent Respiratory effort is even, unlabored, Respiratory pattern is regular, symmetrical, Denies shortness of breath. Derm: Skin is dry, Skin is normal, Skin temperature is warm. Historical: - Allergies: 11:17 PENICILLINS; jl7 - Home Meds: 11:17 carvedilol 25 mg Oral tab 1 tab 2 times per day [Active]; ramipril 10 mg Oral cap 1 cap jl7 once daily [Active]; tizanidine 4 mg oral cap [Active]; hydralazine 50 mg Oral tab 1 tab 2 times per day [Active]; gabapentin 300 mg oral cap [Active]; dorzolamide-timolol 22.3-6.8 mg/mL ophthalmic drop 1 drop 2 times per day [Active]; tramadol 50 mg Oral tab [Active]; - PMHx: 11:17 CHF; HD - Tue//Tue; Hypertension; ESRD; jl7 - Immunization history:: Adult Immunizations up to date. - Social history:: Smoking status: Patient reports the use of cigarette tobacco products, smokes one-half pack cigarettes per day. Screenin:19 Abuse screen: Denies threats or abuse. Denies injuries from another. Nutritional jl7 screening: No deficits noted. Tuberculosis screening: No symptoms or risk factors identified. Fall Risk IV access (20 points). Total [place] Fall Scale indicates No Risk (0-24 pts). Assessment: 11:30 Reassessment: UNABLE TO OBTAIN BLOOD SPECIMEN FROM PIV PLACEMENT. PHLEBOTOMY CONTACTED. bp 12:17 Reassessment: No changes from previously documented assessment. Patient and/or family bp updated on plan of care and expected duration. Pain level reassessed. Patient is alert, oriented x 3, equal unlabored respirations, skin warm/dry/pink. ALL CURRENT ORDERS COMPLETED, RESULTS PENDING Patient states symptoms have improved. 13:43 Reassessment: PT D/C HOME WITH FAMILY, DX WITH HTN. PT TO F/U WITH HD CLINIC TOMORROW. bp Vital Signs: 11:10 BP 200 / 92; Pulse 76; Resp 12 S; Temp 97.8; Pulse Ox 94% on R/A; Weight 73.48 kg; Pain jl7 7/10; 11:45 BP 189 / 90; Pulse 74; Resp 15; Pulse Ox 95% ; jl7 12:06 BP 169 / 72; Pulse 71; Resp 15; Pulse Ox 94% ; jl7 12:17 BP 169 / 72; Pulse 77; Resp 16; Pulse Ox 95% ; bp 12:38 BP 191 / 85; Pulse 76; Resp 15; Pulse Ox 93% ; jl7 13:38 BP 159 / 72; Pulse 75; Resp 15; Pulse Ox 95% ; jl7 ED Course: 11:10 Patient arrived in ED. jl7 11:13 Triage completed. jl7 11:15 Andrew Petit PA is PHCP. cp 11:15 Isiah Sheth MD is Attending Physician. cp 11:17 Arm band placed on right wrist. jl7 11:19 Patient has correct armband on for positive identification. Placed in gown. Bed in low jl7 position. Call light in reach. Side rails up X 1. secured entrance monitor on. Pulse ox on. NIBP on. 11:24 Victor Manuel Delgado, RN is Primary Nurse. jl7 11:30 Inserted saline lock: 22 gauge in left hand, using aseptic technique. bp 11:39 CT Head C Spine In Process Unspecified. EDMS 11:40 CT Thoracic Spine Wo Cont In Process Unspecified. EDMS 13:38 No provider procedures requiring assistance completed. IV discontinued, intact, jl7 bleeding controlled, No redness/swelling at site. Pressure dressing applied. Administered Medications: 11:32 Drug: hydrALAZINE 10 mg Route: IV; Rate: calculated rate; Site: left hand; bp 11:58 Drug: HydrALAZINE 50 mg Route: PO; jl7 13:11 CANCELLED (Physician Discretion): hydrALAZINE 10 mg IV at calculated rate once cp Outcome: 13:16 Discharge ordered by MD. cp 13:38 Discharged to home via wheelchair. jl7 13:38 Condition: stable 13:38 Discharge instructions given to patient, Instructed on discharge instructions, follow up and referral plans. Demonstrated understanding of instructions, follow-up care. 13:39 Patient left the ED. jl7 Signatures: Dispatcher [employer] EDMS Andrew Petit PA PA cp Victor Manuel Delgado, RN RN jl7 Kuldip Rogers RN RN bp
--- NOTE | 2020-11-18 13:16 | EDPHYS ---
Physician Documentation [facility] Name: Dennise Harris Age: 60 yrs Sex: Female : 1960 Arrival Date: 11/18/2020 Time: 11:10 Bed 4 Private MD: ED Physician Isiah Sheth HPI: 11/18 11:30 This 60 yrs old Black Female presents to ER via EMS with complaints of High Blood cp Pressure. 11:30 The patient has elevated blood pressure and discovered this at a physician's office, cp and sent to the emergency department for evaluation. Onset: The symptoms/episode began/occurred today. Associated signs and symptoms: Pertinent positives: headache, Pertinent negatives: chest pain, lightheadedness, weakness. Severity of symptoms: At its worst the blood pressure was 228 mm Hg. 11:30 Patient reports she was at dialysis clinic this morning and unable to have dialysis due cp to elevated blood pressure. Patient reports taking blood pressure medication this morning. 11:30 Patient reports pain of mid back due to recent fall. cp Historical: - Allergies: 11:17 PENICILLINS; jl7 - Home Meds: 11:17 carvedilol 25 mg Oral tab 1 tab 2 times per day [Active]; ramipril 10 mg Oral cap 1 cap jl7 once daily [Active]; tizanidine 4 mg oral cap [Active]; hydralazine 50 mg Oral tab 1 tab 2 times per day [Active]; gabapentin 300 mg oral cap [Active]; dorzolamide-timolol 22.3-6.8 mg/mL ophthalmic drop 1 drop 2 times per day [Active]; tramadol 50 mg Oral tab [Active]; - PMHx: 11:17 CHF; HD - Tue//Tue; Hypertension; ESRD; jl7 - Immunization history:: Adult Immunizations up to date. - Social history:: Smoking status: Patient reports the use of cigarette tobacco products, smokes one-half pack cigarettes per day. ROS: 11:35 Back: Positive for pain at rest, pain with movement, of the thoracic area. cp 11:35 Eyes: Negative for injury, pain, redness, and discharge. cp 11:35 Constitutional: Negative for body aches, chills, fever, poor PO intake. 11:35 ENT: Negative for ear pain, sore throat, difficulty swallowing, difficulty handling secretions. 11:35 Cardiovascular: Negative for chest pain, edema, palpitations. 11:35 Respiratory: Negative for cough, shortness of breath, wheezing. 11:35 Neuro: Positive for headache, Negative for altered mental status, numbness, weakness. 11:35 All other systems are negative. Exam: 11:40 Constitutional: The patient appears in no acute distress, alert, awake, cp non-diaphoretic, non-toxic, well developed, well nourished. 11:40 Head/Face: Normocephalic, atraumatic. cp 11:40 Eyes: Pupils: equal, round, and reactive to light and accomodation, Conjunctiva: normal, no exudate, no injection, Lids and lashes: appear normal, bilaterally. 11:40 ENT: External ear(s): are unremarkable, Nose: is normal, Mouth: Lips: moist, Oral mucosa: moist, Posterior pharynx: Airway: no evidence of obstruction, patent. 11:40 Neck: ROM/movement: is normal, is supple, without pain, no range of motions limitations. 11:40 Chest/axilla: Inspection: normal, Palpation: is normal, no crepitus, no tenderness. 11:40 Cardiovascular: Rate: normal, Rhythm: regular, Edema: is not appreciated, JVD: is not appreciated. 11:40 Respiratory: the patient does not display signs of respiratory distress, Respirations: normal, no use of accessory muscles, no retractions, labored breathing, is not present, Breath sounds: are clear throughout, no decreased breath sounds. 11:40 Abdomen/GI: Inspection: abdomen appears normal, Palpation: abdomen is soft and non-tender, in all quadrants. 11:40 Back: pain, that is mild, of the thoracic area, ROM is painful, with flexion. 11:40 Neuro: Orientation: to person, place \T\ time. Mentation: is normal, Motor: moves all fours, strength is normal. Vital Signs: 11:10 BP 200 / 92; Pulse 76; Resp 12 S; Temp 97.8; Pulse Ox 94% on R/A; Weight 73.48 kg; Pain jl7 7/10; 11:45 BP 189 / 90; Pulse 74; Resp 15; Pulse Ox 95% ; jl7 12:06 BP 169 / 72; Pulse 71; Resp 15; Pulse Ox 94% ; jl7 12:17 BP 169 / 72; Pulse 77; Resp 16; Pulse Ox 95% ; bp 12:38 BP 191 / 85; Pulse 76; Resp 15; Pulse Ox 93% ; jl7 13:38 BP 159 / 72; Pulse 75; Resp 15; Pulse Ox 95% ; jl7 MDM: 11:18 Patient medically screened. cp 12:00 Differential diagnosis: hypertensive crisis, Malignant HTN, CVA, intracerebral cp hemorrhage. 13:15 Data reviewed: vital signs, nurses notes, lab test result(s), radiologic studies, CT cp scan, and as a result, I will discharge patient. 13:15 Counseling: I had a detailed discussion with the patient and/or guardian regarding: the cp historical points, exam findings, and any diagnostic results supporting the discharge/admit diagnosis, the presence of at least one elevated blood pressure reading (>120/80) during this emergency department visit, lab results, radiology results, to return to the emergency department if symptoms worsen or persist or if there are any questions or concerns that arise at home. 13:15 Response to treatment: the patient's symptoms have markedly improved after treatment, cp VSS. Blood pressure improved. Will discharge to home for continued monitoring. 11/18 11:21 Order name: BMP; Complete Time: 13:00 cp 11/18 13:01 Interpretation: Normal except: GLUC 126; BUN 49; CRE 8.81; GFR 6. cp 11/18 11:21 Order name: Magnesium; Complete Time: 13:00 cp 11/18 11:21 Order name: CT Head C Spine; Complete Time: 12:16 cp 11/18 11:21 Order name: CT Thoracic Spine Wo Cont; Complete Time: 12:16 cp 11/18 11:21 Order name: CBC with Diff; Complete Time: 13:00 cp 11/18 13:17 Interpretation: Normal except: RBC 3.48; HGB 11.3; HCT 33.9; MCV 97.3. cp 11/18 11:21 Order name: IV; Complete Time: 11:31 cp Administered Medications: 11:32 Drug: hydrALAZINE 10 mg Route: IV; Rate: calculated rate; Site: left hand; bp 11:58 Drug: HydrALAZINE 50 mg Route: PO; jl7 13:11 CANCELLED (Physician Discretion): hydrALAZINE 10 mg IV at calculated rate once cp Disposition: 11/18/20 13:16 Discharged to Home. Impression: Hypertensive heart and chronic kidney disease. - Condition is Stable. - Discharge Instructions: Hypertension, End-Stage Kidney Disease, Managing Your Hypertension. - Medication Reconciliation Form, Thank You Letter, Antibiotic Education, Prescription Opioid Use form. - Follow up: Private Physician; When: Today; Reason: dialysis. - Problem is chronic. - Symptoms have improved. Addendum: 11/19/2020 16:43 Co-signature as Attending Physician, Isiah Sheth MD I agree with the assessment and k dr plan of care. Signatures: Dispatcher [employer] EDMS Isiah Sheth MD MD kdr Andrew Petit PA PA cp Victor Manuel Delgado RN RN jl7 Kuldip Rogers RN RN bp Corrections: (The following items were deleted from the chart) 11/18 13:11 13:03 hydrALAZINE 10 mg IV at calculated rate once ordered. cp cp 13:39 13:16 11/18/2020 13:16 Discharged to Home. Impression: Hypertensive heart and chronic jl7 kidney disease. Condition is Stable. Forms are Medication Reconciliation Form, Thank You Letter, Antibiotic Education, Prescription Opioid Use. Follow up: Private Physician; When: Today; Reason: dialysis. Problem is chronic. Symptoms have improved. cp
[2020-11-19 07:53] VITALS: TEMP 97.8
[2020-11-19 07:59] VITALS: BP 159/72; O2SAT 95
== END 2020-11-18 13:39 | disposition home or self-care (01) ==
LOC: ER 11:08
DX: I13.2 Hypertensive heart and chronic kidney disease with heart failure and with stage 5 chronic kidney disease, or end stage renal disease (principal); N18.6 End stage renal disease; I50.9 Heart failure, unspecified; F17.210 Nicotine dependence, cigarettes, uncomplicated; Z99.2 Dependence on renal dialysis; Z88.0 Allergy status to penicillin
CPT/HCPCS: 85025; 80048; 36415; 83735; 70450; 72125; 72128; 96374; 99284; J0360

== ENCOUNTER 2021-12-05 10:32 | Inpatient (IN) | payer OTHER ==
--- OUTSIDE RECORDS SUMMARY | 2021-12-05 10:36 | XMS REPORT | Continuity of Care Document ---
:1960 Author Organization [facility] t Address [address] [place] [address] Care Team Providers Name Role Phone Rosemarie BUTLER Primary Care Physician Unavailable EVELYN K.Bishnu Attending Clinician Unavailable Evelyn COOK, K.H. Attending Clinician MINGO Attending Clinician Unavailable Rosemarie Butler MD Attending Clinician Mingo COOK Attending Clinician SYSTEM, NOT IN Attending Clinician Unavailable Payers Payer Name Policy Type Policy Number Effective Date Expiration Date [facility] [id number] 2011 MEDICAID 00:00:00 MEDICAID [place]OLINA [id number] 2018 00:00:00 Problems Condition Condition Condition Status Onset Resolution Last Treating Co mments Source Name Details Category Date Date Treatment Clinician Date Asymptomat Asymptomat Disease Active 2020- U nivers ic ic 08-20 ity of hypertensi [place] ve urgency 00 Me dical Branch Need for Need for Disease Active 2020-0 Unive rs 23-polyval 23-polyval 08-20 it y of ent ent 00:00: [place] pneumococc pneumococc 00 Me dical al al Branch polysaccha polysaccha ride ride vaccine vaccine Need for Need for Disease Active 2020-0 Unive rs influenza influenza 08-20 ity of vaccinatio vaccinatio [place] n 00 Medical [facility] Bronchitis Bronchitis Disease Active 2020-0 U nivers - ity of 00:00: [place] 00 Medical Branch Seasonal Seasonal Disease Active 2020-0 Unive rs allergic allergic 6-04 ity of rhinitis, rhinitis, 00:00: [place] ngo unspecifie unspecifie 00 Me dical d trigger d trigger Bran ch Cigarette Cigarette Disease Active 2020-0 Uni vers nicotine nicotine 6-04 ity of dependence dependence 00:00: [place] without without 00 Medical complicati complicati Br anch on on Hospital Hospital Disease Active 2020-0 Unive rs discharge discharge 04 ity of follow-up follow-up 00:00: [place] n[place] 00 Medical Branch Acidosis Acidosis Disease Active 2020-0 Unive rs 3- ity of 00:00: [place] 00 Medical Branch Anemia in Anemia in Disease Active 2020-0 Uni vers chronic chronic 3- ity of kidney kidney 00:00: [place] disease disease 00 Medical Branch Chronic Chronic Disease Active 2020-0 Univers kidney kidney 3 ity of disease disease 00:00: [place] due to due to 00 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 Dependence Dependence Disease Active 2020-0 U nivers on renal on renal 3 ity of dialysis dialysis 00:00: [place] 00 Medical Branch Gastroesop Gastroesop Disease Active 2020-0 U nivers hageal hageal 3- ity of reflux reflux 00:00: [place] disease disease 00 Medical Branch Hyperkalem Hyperkalem Disease Active 2020-0 U nivers ia ia 3 ity of 00:00: [place] 00 Medical Branch 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 3- it y of itis itis 00:00: [place] 00 Medical Branch Nephrogeno Nephrogeno Disease Active 2020-0 U nivers us us 3- ity of proteinuri proteinuri [place] a a 00 [place] Branch 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 type 2 00:00: [place] n[place] diabetes diabetes 00 Medica l mellitus mellitus Branch Renal Renal Disease Active 2020-0 Univers osteodystr osteodystr 3- it y of ophy ophy 00:00: [place] 00 Medical Branch 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 Added automatic ally from request for surgery [id number] Obesity Obesity Disease Active Univers (BMI (BMI 9-05 ity of 30-39.9) 30-39.9) 00:00: [place] 00 Medical Branch ESRD (end ESRD (end Disease Active Overview: Univers stage stage 8-21 Formattin ity of renal renal 00:00: g of this [place] disease) disease) 00 note Medica l on on might be Branch dialysis dialysis different from the original. Added automatic ally from request for surgery [id number] Elevated Elevated Disease Active Unive rs serum serum 3-17 ity of lactate lactate 00:00: [place] dehydrogen dehydrogen 00 Me dical ase ase Branch Essential Essential Disease Active 2015-11 Uni vers hypertensi hypertensi 0-07 it y of on on 00:00: [place] 00 Medical Branch Controlled Controlled Disease Active U nivers type 2 type 2 8-19 ity of diabetes diabetes 00:00: [place] mellitus mellitus 00 Medica l with with Branch chronic chronic kidney kidney disease, disease, without without long-term long-term current current use of use of insulin, insulin, unspecifie unspecifie d CKD d CKD stage stage ACC/AHA ACC/AHA Disease Active Univers stage B stage B 8-10 ity of congestive congestive 00[place]00[place] heart heart 00 Medical failure failure Branch Chronic Chronic Disease Active Univers diastolic diastolic 8-10 ity of heart heart 00:00: [place] failure failure 00 Medical Branch MOE MOE Disease Active Univers (dyspnea (dyspnea 8-10 ity of on on 00:00: [place] exertion) exertion) 00 [facility] Branch Edema of Edema of Disease Active Unive rs both legs both legs 7-25 ity of 00:00: [place] 00 Medical Branch HTN HTN Disease Active Univers (hypertens (hypertens 7-18 it y of ion) ion) 00:00: [place] 00 Medical Branch Bipolar 1 Bipolar 1 Disease Active Uni vers disorder disorder ity of [facility] Allergies, Adverse Reactions, Alerts Allergy Allergy Status Severity Reaction(s) Onset Inactive Treating Comm ents Source Name Type Date Date Clinician PENICILL Allergy Active High Hives 2018- [facility] INS 3-11 00:00: 00 PENICILL Drug Active High Hives Univers INS Class 7-18 ity of 00:00: [place] 00 Medical Branch Penicill Propensi Active Hives Univer s ins ty to 7-18 ity of adverse 00:00: [place] reaction 00 Medical s Branch Social History Social Habit Start Date Stop Date Quantity Comments Source History SDOH University o f Alcohol Frequency [facility] edical Branch History SDCO University o f Alcohol Std Drinks [place] [facility] History [facility] o f Alcohol Binge [place] Medic al Branch Exposure to Not sure University of SARS-CoV-2 (event) [facility] Alcohol intake 2021-09-23 2021-09-23 Current drinker Unive rsity of 00:00:00 00:00:00 of alcohol [place] Medical (finding) Branch Alcohol Comment 2016-06-14 2016-06-14 beer during the Univ ersity of 00:00:00 00:00:00 week to sleep [facility] al Branch Cigarette 2015-01-14 2015-01-14 University of pack-years 00:00:00 00:00:00 [facility] Tobacco use and 2015-01-14 2015-01-14 Never used Universit y of exposure 00:00:00 00:00:00 [facility] Cigarettes smoked 2015-01-14 2015-01-14 Univers ity of current (pack per 00:00:00 00:00:00 [facility] ) - Reported Branch Sex [birth year] At [birth year] Universit y of 00:00:00 00:00:00 [facility] Smoking Status Start Date Stop Date Source Current every day smoker 2015-01-14 00:00:00 Uni versity of [facility] Medications Ordered Filled Start Stop Current Ordering Indication Dosage Frequency Signature Comments Components Source Medication Medication Date Date Medication? Clinician (SIG) Name Name ERGOCALCIFE 2020-11 Yes Take by Un carolann ROL, 0-27 mouth. ity of VITAMIN D2, 11:10: [place] (VITAMIN D 51 Medical ORAL) Branch gabapentin 2020-11 Yes 300mg Take 300 Un carolann 300 mg 0-27 mg by ity of capsule 11:10: mouth 2 [place] 51 (two) Medical times Branch daily. ramipril 5 2020-11 Yes 5mg Take 5 mg Un carolann mg capsule 0-27 by mouth ity o f 11:10: at [place] [address] bedtime. Medical Branch tiZANidine 2020-11 Yes 4mg Take 4 mg Un carolann 4 mg 0-27 by mouth 2 ity of capsule 11:10: (two) [place] [address] times Medical daily. Branch HYDRALAZINE Yes [id number] TAKE 1 Univers 50 mg 4-08 TABLET BY ity of tablet 00:00: MOUTH [place] 00 THREE Medical TIMES Branch DAILY CARVEDILOL 2019-11 Yes [id number] TAKE 1 U nivers 25 mg 1-01 TABLET BY ity of tablet 00:00: MOUTH [place] 00 TWICE Medical DAILY WITH Branch MEALS furosemide 2019- Yes [id number] 40mg Take 1 Univers 40 mg 9-23 tablet by ity of tablet 00:00: mouth [place] 00 every Medical morning Branch and evening. acetaminoph 2019- Yes [id number] 650mg Take 1 Univers en 650 mg 9-23 tablet by ity o f CR tablet 00:00: mouth [place] 00 every 8 Medical (eight) Branch hours as needed for Pain. Diclofenac 2019-0 Yes [id number] Apply to Univers Sodium 9-23 area(s) 3 ity of (VOLTAREN) 00:00: (three) [place] 1 % gel 00 times Medical daily. Branch Apply two grams to affected areas three times daily traMADoL 50 2019-0 Yes [id number] 50mg Take 1 Univ ers mg tablet 9-23 tablet by ity o f 00:00: mouth [place] 00 every 8 Medical (eight) Branch hours as needed for Pain (scale 4-6). Indication s: chronic pain, chronic right knee pain (cannot take NSAID due to CKD) albuterol 2019-0 Yes [id number] 2{puff} Inhale 2 Univers (VENTOLIN 9-09 Puffs ity of HFA) 90 00:00: every 6 [place] mcg/actuati 00 (six) Medical on inhaler hours as Branc h needed for Wheezing or Shortness of Breath. potassium 2020-0 Yes [id number] 10meq Take 1 Univers chloride 10 9-09 tablet by ity of mEq CR 00:00: mouth [place] tablet 00 every Medical Tuesday, Branch and Tuesday in the evening. doxycycline 2020- No [id number] 100mg Take 1 Univers hyclate 100 08-06 tablet by it y of mg tablet 00:00: 00:00 mouth 2 [place] 00 :00 (two) Medical times Branch daily. methylPREDN 2020- No [id number] Take by Univers ISolone 08-06 mouth ity of (MEDROL, 00:00: 00:00 [place]-INSTRU [place] NIRANJAN,) 4 mg 00 :00 CTIONS. Medica l tablets follow [place] package directions nicotine 14 2020- No [id number] 1{patch Apply 1 Univers mg/24 hr 08-06 } Patch to ity of patch 00:00: 00:00 area(s) [place] 00 :00 every 24 Medical [facility] ur) hours. Apply 21mg patch daily x 6 weeks, then apply 14mg patch daily x 2 weeks, then apply 7 mg patch daily 2 weeks, stop smoking on initiation of therapy. nicotine 21 2020- No [id number] 1{patch Apply 1 Univers mg/24 hr 08-06 } Patch to ity of patch 00:00: 00:00 area(s) [place] 00 :00 every 24 Medical (twenty- Branch ur) hours. Apply 21mg patch daily x 6 weeks, then apply 14mg patch daily x 2 weeks, then apply 7 mg patch daily 2 weeks, stop smoking on initiation of therapy. nicotine 7 2020- No [id number] 1{patch Apply 1 Univers mg/24 hr 08-06 } Patch to ity of patch 00:00: 00:00 area(s) [place] 00 :00 every 24 Medical (twenty- Branch ur) hours. Apply 21mg patch daily x 6 weeks, then apply 14mg patch daily x 2 weeks, then apply 7 mg patch daily 2 weeks, stop smoking on initiation of therapy. CETIRIZINE 2019- Yes [id number] Take 1 Univers 10 mg 8-31 tablet by ity of tablet 00:00: mouth once 00 daily Medical Branch AMLODIPINE 2018- Yes [id number] TAKE 1 U nivers 10 mg 9-17 TABLET BY ity of tablet 00:00: MOUTH ONCE DAILY Medical Branch lancets 2020- No Once daily Uni vers (FREESTYLE 07-02 for DM II ity of LANCETS) 28 00:00: 00:00 [place] gauge Misc 00 :00 Medical [place] blood sugar 2020- No Test blood Univers diagnostic 07-02 sugars ity of (FREESTYLE 00:00: 00:00 daily for [place] INSULINX 00 :00 diabetes, Medica l TEST Please Branch STRIPS) give strip patient any brand of testing supplies she wants Blood-Gluco 2020- No [id number] Use as Univers se Meter 07-16 directed. ity o f (FREESTYLE 00:00: 00:00 Brand per [place] SYSTEM KIT) 00 :00 patient. [employer] amy Kit Branch Immunizations Ordered Filled Immunization Date Status Comments [facility] e Immunization Name Name Pneumococcal 2020-08-20 Completed University o f Polysaccharide, 00:00:00 [facility] ical PPSV23 (PNEUMOVAX) [place] Influenza Virus 2020-08-20 Completed Universit y of Vaccine Quad .5 mL 00:00:00 [facility] IM 6+ MO Branch Influenza Virus 2018-09-04 Completed Universit y of Vaccine Quad ID 00:00:00 [facility] ical 18-64 YRS Branch Pneumococcal 2017-02-15 Completed [place] o f Polysaccharide, 00:00:00 [facility] ical PPSV23 (PNEUMOVAX) [place] Vital Signs Vital Name Observation Time Observation Value Comments Source Diastolic blood 2021-09-23 16:18:00 107 mm[Hg] Unive rsity of pressure [facility] Heart rate 2021-09-23 16:18:00 73 /min [facility] Systolic blood 2021-09-23 16:18:00 203 mm[Hg] Univer sity of pressure [facility] Respiratory rate 2021-09-23 16:14:00 22 /[facility] Body weight 2021-09-23 16:14:00 70.943 kg [facility] BMI 2021-09-23 16:14:00 26.85 kg/m2 [facility] Oxygen saturation in 2021-09-23 16:14:00 96 /min [facility] Arterial blood by [facility] Pulse oximetry Branch Procedures This patient has no known procedures. Encounters Start End Encounter Admission Attending Care Care Encounter Source Date/Time Date/Time Type Type Clinicians Facility Department ID 2021-11-30 2021-11-30 Outpatient Elli [facility] [id number] Univers 11:30:00 11:30:00 SENDIL [id number] [facility] 2021-11-30 2021-11-30 Outpatient Elli [facility] [id number] Univers 11:30:00 11:30:00 SENDIL [facility] 2021-09-23 2021-09-23 [facility] [id number] Univers 11: 11:32:01 Visit Sendil Juancho TONY [id number] [facility] [id number] [place] ngo PROFESSIO [phone] Nj dical NAL 059 [facility] 2021-09-23 2021-09-23 Outpatient Elli [facility] [id number] Univers 11:00:00 11:00:00 SENDIL [id number] [facility] 2021-09-23 2021-09-23 Outpatient Elli [facility] [id number] Univers 11:00:00 11:00:00 SENDIL [facility] 2021-09-02 2021-09-02 Outpatient Elli [facility] [id number] Univers 13:00:00 13:00:00 SENDIL [id number] [facility] 2021-09-02 2021-09-02 Outpatient Elli [facility] [id number] Univers 13:00:00 13:00:00 SENDIL [facility] 2021-08-12 2021-08-12 Outpatient Elli [facility] [id number] Univers 11:00:00 11:00:00 SENDIL [id number] [facility] 2021-08-12 2021-08-12 Outpatient Elli RIV[facility] [id number] Univers 11:00:00 11:00:00 SENDIL [facility] 2021-07-29 2021-07-29 Outpatient R EVELYN [facility] [id number] Univers 11:00:00 11:00:00 SENDIL [id number] [facility] 2021-07-29 2021-07-29 Outpatient R EVELYN [facility] [id number] Univers 11:00:00 11:00:00 [facility] 2020-11-19 Out[facility] R MINGO, [facility] [id number] Univers 10:40:00 10:40:00 [place] [id number] [facility] 2020-11-19 2020-11-19 [id number] Univers 10:40:00 10:40:00 [place] [facility] 2020-09-23 2020-09-23 [facility] [id number] 00:00:00 00:00:00 Bianca Tony [id number] [place] [id number] Professio [id number] nal 231 [facility] 2020-08-20 2020-08-20 [facility] [id number] 13:42:32 15:04:00 [place] [id number] [place] [id number] Professio [phone] nal 044 [facility] 2020-08-20 2020-08-20 Outpatient R COOKIETHANG, [facility] [id number] Univers 13:40:00 13:40:00 [place] [id number] [facility] 2020-08-20 2020-08-20 Outpatient R MINGO [facility] [id number] Univers 13:40:00 13:40:00 [place] [facility] 2020-08-06 2020-08-06 Outpatient R MINGO [facility] [id number] Univers 13:40:00 13:40:00 [place] [facility] 2020-08-06 2020-08-06 Outpatient R MINGO, [facility] [id number] Univers 13:00:00 13:00:00 [place] [facility] 2020-08-01 2020-08-01 Outpatient R MINGO [facility] [id number] Univers 09:00:00 09:00:00 [place] [facility] 2020-07-24 2020-07-24 Outpatient R EVELYN, [facility] [id number] Univers 11:00:00 11:00:00 SENDIL [facility] 2019-02-08 2019-02-08 Outpatient EL [facility], [facility] [id number] SLE 00:00:00 00:00:00 PROVIDER Results Test Description Test Time Test Comments Results Result Comments Source SARS-COV2/RT-PCR ([facility]) 2020-06-12 13:15:00 Test Item Value Reference Range Interpretation Comme nts SARS-COV2/RT-PCR (test code = 1708362) Negative Not Detected, N egative SARS-COV-2 PERFORMING LAB (test code = [id number]) [facility] Negative result for this test determines that [...] individuals suspected of COVID-19 by their healthcare provider.This test [...] 564(g) of the Act.Fact Sheet for Healthcare Providers:https://www.[employer]/sites/default/files/product/documents/Fact_Lala storeyp_CJ_Cpshnspjc_Rthq_RSEC-CrF-2.pdfFact Sheet for Healthcare Patients:https://www.[employer]/sites/default/files/product/ documents/Xmzc_Vgqll_Nmgyldxn_Txsy_NFKE-YlY-0.pdfPerforming Laboratory:[facility], [place] [address]GAA, CV ACCESS, [id number] 17:37:00FINAL REPORT History: Renal failure, need for [...] [place] Verified Date/Time: 02/07/2019 17:37:01 Reading Location: [address] Body Reading Room
[2021-12-05] MEDS ORDERED: NA CHLORIDE 0.9% 50 ML ONE (10:48)
[2021-12-05] MEDS ORDERED: AZITHROMYCIN 500 MG INJ IVPB ONE (10:48)
[2021-12-05 11:02] LABS: Absolute Lymphocytes (CBC) 0.7 K/uL (0.7-4.9); Lymphocytes % 31.4 % (15.3-44.8); MPV 9.1 fL (7.6-11.3); RBC Red Blood Cell Count 2.95 M/uL (3.86-4.86)
[2021-12-05 11:14] LABS: Protime INR 1.08
--- NOTE | 2021-12-05 11:27 | RAD REPORT ---
EXAM DESCRIPTION: RAD - Chest Single View - 12/05/2021 11:21 am CLINICAL HISTORY: CONGESTION Chest pain. COMPARISON: Chest Pa And Lat (2 Views) dated 07/11/2020; Chest Single View dated 07/10/2020; Chest Sin gle View dated 06/11/2020; Chest Single View dated 04/28/2020 FINDINGS: Portable technique limits examination quality. Mild to moderate bilateral pulmonary opacities are seen which may represent pulmonary edema. The hear t is moderately enlarged. Right-sided venous catheter has tip right atrium. IMPRESSION: Mild to moderate CHF versus volume overload pattern.
[2021-12-05 11:52] LABS: Albumin 2.9 g/dL (3.4-5.0); Bilirubin Direct 0.4 mg/dL (0-0.2); Bilirubin Total 0.9 mg/dL (0.2-1.0); Magnesium 2.1 mg/dL (1.8-2.4); Potassium 3.4 mmol/L (3.5-5.1); Protein, Total 7.7 g/dL (6.4-8.2); Troponin (Emerg Dept Use Only) 0.14 ng/mL (0.0-0.045)
[2021-12-05 12:57] LABS: Blood Morphology Comment NOT SEEN (NOT SEEN); Platelet Estimate DECR; White Blood Cell Scan OK (OK)
--- NOTE | 2021-12-05 12:57 | EDPHYS ---
Physician Documentation [facility] Name: Dennise Harris Age: 61 yrs Sex: Female : 1960 Arrival Date: 12/05/2021 Time: 10:35 Bed 15 Private MD: ED Physician Ousmane Martin HPI: 12/05 11:20 This 61 yrs old Black Female presents to ER via EMS with complaints of Fever. ma2 11:20 Onset: The symptoms/episode began/occurred gradually, 1 day(s) ago. Severity of ma2 symptoms: At their worst the symptoms were mild, in the emergency department the symptoms are unchanged. Associated signs and symptoms: Pertinent negatives: ear ache, rhinorrhea, sore throat. The patient has experienced similar episodes in the past. Patient has ESRD, went to hemodialysis scheduled today, however they found she had a fever, so they sent her here by EMS. Patient had fever for 3 days mild constant, mild cough, did not get dialysis today. Historical: - Allergies: 10:40 PENICILLINS; ab2 - Home Meds: 10:40 hydralazine 50 mg Oral tab 1 tab 2 times per day [Active]; carvedilol 25 mg Oral tab 1 ab2 tab 2 times per day [Active]; dorzolamide-timolol 22.3-6.8 mg/mL ophthalmic drop 1 drop 2 times per day [Active]; gabapentin 300 mg Oral cap [Active]; ramipril 10 mg Oral cap 1 cap once daily [Active]; tizanidine 4 mg Oral cap [Active]; 11:06 tramadol 50 mg Oral tab [Active]; ab2 - PMHx: 10:40 CHF; ESRD; HD - Tue//Tue; Hypertension; ab2 - Immunization history:: Adult Immunizations up to date, Client reports receiving the 2nd dose of the Covid vaccine. - Social history:: Smoking status: Patient reports the use of cigarette tobacco products, smokes one-half pack cigarettes per day, Patient/guardian denies using alcohol, street drugs, The patient lives with family. - Family history:: not pertinent. ROS: 11:20 Constitutional: Negative for fever, chills, and weight loss. ma2 11:20 All other systems are negative. Exam: 11:20 Constitutional: This is a well developed, well nourished patient who is awake, alert, ma2 and in no acute distress. Head/Face: Normocephalic, atraumatic. Eyes: Pupils equal round and reactive to light, extra-ocular motions intact. Lids and lashes normal. Conjunctiva and sclera are non-icteric and not injected. Cornea within normal limits. Periorbital areas with no swelling, redness, or edema. ENT: Nares patent. No nasal discharge, no septal abnormalities noted. Tympanic membranes are normal and external auditory canals are clear. Oropharynx with no redness, swelling, or masses, exudates, or evidence of obstruction, uvula midline. Mucous membranes moist. Neck: Trachea midline, no thyromegaly or masses palpated, and no cervical lymphadenopathy. Supple, full range of motion without nuchal rigidity, or vertebral point tenderness. No Meningismus. Chest/axilla: Normal chest wall appearance and motion. Nontender with no deformity. No lesions are appreciated. Cardiovascular: Regular rate and rhythm with a normal S1 and S2. No gallops, murmurs, or rubs. Normal PMI, no JVD. No pulse deficits. Respiratory: Lungs have equal breath sounds bilaterally, clear to auscultation and percussion. No rales, rhonchi or wheezes noted. No increased work of breathing, no retractions or nasal flaring. Abdomen/GI: Soft, non-tender, with normal bowel sounds. No distension or tympany. No guarding or rebound. No evidence of tenderness throughout. Skin: Warm, dry with normal turgor. Normal color with no rashes, no lesions, and no evidence of cellulitis. MS/ Extremity: Pulses equal, no cyanosis. Neurovascular intact. Full, normal range of motion. Neuro: Awake and alert, GCS 15, oriented to person, place, time, and situation. Cranial nerves II-XII grossly intact. Motor strength 5/5 in all extremities. Sensory grossly intact. Cerebellar exam normal. Normal gait. Vital Signs: 10:35 BP 137 / 66; Pulse 87; Resp 18; Temp 101.1(O); Pulse Ox 97% on R/A; Weight 68.95 kg; ab2 Height 5 ft. 3 in. (160.02 cm); Pain 0/10; 11:02 BP 137 / 66; Pulse 89; Resp 18; Pulse Ox 87% on R/A; ab2 11:02 Pulse Ox 96% on 3 lpm NC; ab2 11:07 BP 115 / 56; Pulse 67; Resp 18; Pulse Ox 97% on 2 lpm NC; Pain 0/10; ab2 11:33 BP 129 / 62; Pulse 67; Resp 18; Temp 98.9(O); Pulse Ox 93% on 3 lpm NC; Pain 0/10; ab2 12:30 BP 135 / 65; Pulse 65; Resp 17; Temp 98.6(O); Pulse Ox 94% ; Pain 0/10; ab2 13:41 BP 113 / 65; Pulse 63 MON; Resp 16; Temp 98.4(O); Pulse Ox 92% on 3 lpm NC; Pain 0/10; ab2 10:35 Body Mass Index 26.93 (68.95 kg, 160.02 cm) ab2 MDM: 10:37 Patient medically screened. ma2 11:20 Differential Diagnosis: Bronchitis Influenza Upper Respiratory Infection Sinusitis. ma2 12:56 Data reviewed: vital signs, nurses notes, EMS record. Counseling: I had a detailed [facility] discussion with the patient and/or guardian regarding: the historical points, exam findings, and any diagnostic results supporting the discharge/admit diagnosis, the presence of at least one elevated blood pressure reading (>120/80) during this emergency department visit, the need for further work-up and treatment in the hospital. Response to treatment: the patient's symptoms have markedly improved after treatment. ED course: Discussed with Dr. Berry, and Dr. Camarena. Patient needs emergent dialysis, has SIRS criteria with low WBCs, cough with sputum production, COVID, positive. Patient also has a mild elevation in troponin, that need to be trended. Discussed with Dr. Camarena.. 12/05 10:38 Order name: SARS-COV-2 RT PCR (Document "Date of Onset" if Symptomatic) 12/05 10:38 Order name: Basic Metabolic Panel; Complete Time: 12:19 12/05 10:38 Order name: CBC with Diff 12/05 10:38 Order name: LFT's; Complete Time: 12:19 la12/05 10:38 Order name: Magnesium; Complete Time: 12:19 la12/05 10:38 Order name: NT PRO-BNP; Complete Time: 12:19 la2 12/05 10:38 Order name: PT-INR; Complete Time: 11:54 la2 12/05 10:38 Order name: Troponin (emerg Dept Use Only); Complete Time: 12:19 la2 12/05 10:38 Order name: XRAY Chest (1 view); Complete Time: 11:54 la2 12/05 10:38 Order name: EKG; Complete Time: 10:39 la2 12/05 10:38 Order name: Cardiac monitoring; Complete Time: 11:08 la2 12/05 12:26 Order name: Procalcitonin [facility] 12/05 12:57 Order name: CBC Smear Scan [facility] 12/05 10:38 Order name: EKG - Nurse/Tech; Complete Time: 11:08 la2 12/05 10:38 Order name: IV Saline Lock; Complete Time: 10:56 [facility] 12/05 10:38 Order name: Labs collected and sent; Complete Time: 10:56 [facility] 12/05 10:38 Order name: O2 Per Protocol; Complete Time: 11:08 la2 12/05 10:38 Order name: O2 Sat Monitoring; Complete Time: 11:08 [facility] Administered Medications: 10:56 Drug: AZITHromycin 500 mg Route: IVPB; Infused Over: 1 hrs; Site: right femoral; ab2 11:53 Follow up: Response: No adverse reaction; IV Status: Completed infusion ab2 Disposition Summary: 12/05/21 12:57 Hospitalization Ordered Hospitalization Status: [facility]ation [facility] Condition: Stable ma2 Problem: new ma2 Symptoms: are unchanged ma2 Bed/Room Type: Standard ma2 Provider: Ventura Camarena(12/05/21 12:57) ma2 Room Assignment: [facility](12/05/21 13:37) Diagnosis - Coronavirus infection, unspecified ma2 Forms: - Medication Reconciliation Form ma2 - SBAR form ma2 Signatures: Dispatcher [employer] Shauna Tellez RN RN ss Ousmane Martin MD MD ma2 Bianca Dyer Alexis ab2 Corrections: (The following items were deleted from the chart) 12:57 12:57 Ousmane Martin ma2 ma2 13:35 12:57 ma2 eb 13:37 13:35 406 eb ss
--- NOTE | 2021-12-05 12:57 | ER ---
Nurse's Notes [facility] Name: Dennise Harris Age: 61 yrs Sex: Female : 1960 Arrival Date: 12/05/2021 Time: 10:35 Bed 15 Private MD: Diagnosis: Coronavirus infection, unspecified Presentation: 12/05 10:35 Chief complaint: Patient states: Pt presents to ED via [facility] with c/o fever, ab2 cough and congestion. Pt was at dialysis and the dialysis nurse called for EMS due to patient having a fever. Pt did not receive dialysis. EMS gave patient 1000mg of tylenol PO. Coronavirus screen: Vaccine status: Patient reports receiving the 2nd dose of the covid vaccine. Client denies travel out of the [place] in the last 14 days. congestion, cough unrelated to allergies. Ebola Screen: Patient negative for fever greater than or equal to 101.5 degrees Fahrenheit, and additional compatible Ebola Virus Disease symptoms Patient denies exposure to infectious person. Patient denies travel to an Ebola-affected area in the 21 days before illness onset. No symptoms or risks identified at this time. Initial Sepsis Screen: Does the patient meet any 2 criteria? Temp <36.0*C (96.8*F)) or > 38.3*C (100.9*F). No. Patient's initial sepsis screen is negative. Does the patient have a suspected source of infection? No. Patient's initial sepsis screen is negative. Risk Assessment: Do you want to hurt yourself or someone else? Patient reports no desire to harm self or others. 10:35 Method Of Arrival: EMS: [facility] ab2 10:35 Acuity: FAWAD 3 ab2 11:05 Onset of symptoms was December 04, 2021. ab2 Triage Assessment: 10:41 General: Appears in no apparent distress. comfortable, Behavior is calm, cooperative, ab2 Reports fatigue for. Pain: Denies pain. EENT: No deficits noted. No signs and/or symptoms were reported regarding the EENT system. Neuro: No deficits noted. Level of Consciousness is awake, alert, obeys commands, Oriented to person, place, time, situation, Appropriate for age Shift Commander are equal bilaterally. Cardiovascular: No deficits noted. Denies chest pain, shortness of breath, Heart tones S1 S2 present Patient's skin is warm and dry. Chest pain is denied. Respiratory: Reports cough that is Airway is patent Breath sounds are diminished bilaterally. GI: No deficits noted. No signs and/or symptoms were reported involving the gastrointestinal system. Abdomen is flat, non-distended, Patient currently denies abdominal pain. : No deficits noted. No signs and/or symptoms were reported regarding the genitourinary system. Derm: No deficits noted. Denies pain. Musculoskeletal: No deficits noted. No signs and/or symptoms reported regarding the musculoskeletal system. Historical: - Allergies: 10:40 PENICILLINS; ab2 - Home Meds: 10:40 hydralazine 50 mg Oral tab 1 tab 2 times per day [Active]; carvedilol 25 mg Oral tab 1 ab2 tab 2 times per day [Active]; dorzolamide-timolol 22.3-6.8 mg/mL ophthalmic drop 1 drop 2 times per day [Active]; gabapentin 300 mg Oral cap [Active]; ramipril 10 mg Oral cap 1 cap once daily [Active]; tizanidine 4 mg Oral cap [Active]; 11:06 tramadol 50 mg Oral tab [Active]; ab2 - PMHx: 10:40 CHF; ESRD; HD - Tue//Tue; Hypertension; ab2 - Immunization history:: Adult Immunizations up to date, Client reports receiving the 2nd dose of the Covid vaccine. - Social history:: Smoking status: Patient reports the use of cigarette tobacco products, smokes one-half pack cigarettes per day, Patient/guardian denies using alcohol, street drugs, The patient lives with family. - Family history:: not pertinent. Screenin:57 Abuse screen: Denies threats or abuse. Denies injuries from another. Nutritional ab2 screening: No deficits noted. Tuberculosis screening: No symptoms or risk factors identified. Fall Risk None identified. Assessment: 11:04 General: Appears in no apparent distress. comfortable, Behavior is calm, cooperative, ab2 appropriate for age, Reports fatigue for. Pain: Denies pain. Neuro: No deficits noted. Level of Consciousness is awake, alert, obeys commands, Oriented to person, place, time, situation, Appropriate for age Shift Commander are equal bilaterally Speech is normal. Cardiovascular: Reports None Denies chest pain, shortness of breath, Heart tones S1 S2 present Patient's skin is warm and dry. Respiratory: Reports cough that is dry, Airway is patent Denies shortness of breath. GI: No deficits noted. No signs and/or symptoms were reported involving the gastrointestinal system. Abdomen is flat, non-distended, Bowel sounds present X 4 quads. : No deficits noted. No signs and/or symptoms were reported regarding the genitourinary system. EENT: No deficits noted. No signs and/or symptoms were reported regarding the EENT system. Derm: No deficits noted. No signs and/or symptoms reported regarding the dermatologic system. Musculoskeletal: No deficits noted. No signs and/or symptoms reported regarding the musculoskeletal system. 13:43 Reassessment: No changes from previously documented assessment. Patient and/or family ab2 updated on plan of care and expected duration. Pain level reassessed. Patient resting comfortably; lights dimmed, blankets provided and noise reduced for patient to rest. Patient denies pain at this time. 13:56 Reassessment: Report called to YESSI Davalos on the 4th floor. All questions answered. Pt ab2 stable at time of transfer. Vital Signs: 10:35 BP 137 / 66; Pulse 87; Resp 18; Temp 101.1(O); Pulse Ox 97% on R/A; Weight 68.95 kg; ab2 Height 5 ft. 3 in. (160.02 cm); Pain 0/10; 11:02 BP 137 / 66; Pulse 89; Resp 18; Pulse Ox 87% on R/A; ab2 11:02 Pulse Ox 96% on 3 lpm NC; ab2 11:07 BP 115 / 56; Pulse 67; Resp 18; Pulse Ox 97% on 2 lpm NC; Pain 0/10; ab2 11:33 BP 129 / 62; Pulse 67; Resp 18; Temp 98.9(O); Pulse Ox 93% on 3 lpm NC; Pain 0/10; ab2 12:30 BP 135 / 65; Pulse 65; Resp 17; Temp 98.6(O); Pulse Ox 94% ; Pain 0/10; ab2 13:41 BP 113 / 65; Pulse 63 MON; Resp 16; Temp 98.4(O); Pulse Ox 92% on 3 lpm NC; Pain 0/10; ab2 10:35 Body Mass Index 26.93 (68.95 kg, 160.02 cm) ab2 ED Course: 10:35 Patient arrived in ED. ab2 10:35 Isiah Sheth MD is Attending Physician. kdr 10:37 Attending Physician role handed off by Isiah Sheth MD ma2 10:37 Ousmane Martin MD is Attending Physician. ma2 10:40 Triage completed. ab2 10:56 Basic Metabolic Panel Sent. ab2 10:56 CBC with Diff Sent. ab2 10:56 LFT's Sent. ab2 10:56 Magnesium Sent. ab2 10:56 NT PRO-BNP Sent. ab2 10:56 PT-INR Sent. ab2 10:56 Troponin (emerg Dept Use Only) Sent. ab2 10:56 SARS-COV-2 RT PCR (Document "Date of Onset" if Symptomatic) Sent. ab2 10:57 Arm band placed on left wrist. EKG completed in triage. Results shown to MD. EKG ab2 completed in triage. Results shown to MD. Antipyretics given from triage as ordered by an ER provider. Antipyretics given from triage as ordered by an ER provider. Antipyretics given from triage as ordered by an ER provider. 11:03 No provider procedures requiring assistance completed. Inserted saline lock: 20 gauge ab2 in right forearm, using aseptic technique. Blood collected. Oxygen administration via nasal cannula \\T\\ 2L/min Response to oxygen therapy: symptoms improved. 11:06 Bed in low position. Call light in reach. Side rails up X2. ab2 11:07 Abundio Borden is Primary Nurse. ab2 11:10 EKG done, by ED staff, reviewed by Ousmane Martin MD. mb7 11:21 XRAY Chest (1 view) In Process Unspecified. EDMS 12:00 Family notified that patient is in ED. Daughter at bedside and leaving. Daughter gave ab2 nurse hre information to call with any and all updates. 12:40 Procalcitonin Sent. mb7 12:43 DAughter updated that patient is covid positive and will being admitted. ab2 12:57 Ousmane Martin MD is Hospitalizing Provider. ma2 12:57 Hospitalizing Provider role handed off by Ousmane Martin MD ma2 12:57 Ventura Camarena DO is Hospitalizing Provider. ma2 12:57 Ventura Camarena DO is Hospitalizing Provider. ma2 Administered Medications: 10:56 Drug: AZITHromycin 500 mg Route: IVPB; Infused Over: 1 hrs; Site: right femoral; ab2 11:53 Follow up: Response: No adverse reaction; IV Status: Completed infusion ab2 Outcome: 12:57 Decision to Hospitalize by Provider. ma2 14:11 Patient left the ED. eb Signatures: Dispatcher [employer] EDMS Isiah Sheth MD MD [facility] Ousmane Martin MD MD ma2 Bianca Dyer Mary 7 Abundio Borden ab2
--- NOTE | 2021-12-05 13:08 | P.HP ---
Certification for Inpatient Patient admitted to: Observation With expected LOS: <2 Midnights Patient will require the following post-hospital care: Other (Home oxygen at discharge) Practitioner: I am a practitioner with admitting privileges, knowledge of patient current condition, hospital course, and medical plan of care. Services: Services provided to patient in accordance with Admission requirements found in Title 42 Section 412.3 of the Code of Federal Regulations Patient History Date of Service: 12/05/21 Primary Care Provider: unknown; Nephrology-Dr. Berry Reason for admission: SOB, body aches and fever History of Present Illness: 61-year-old -Turkmen female with history of diastolic CHF, hypertension, end-stage renal disease on hemodialysis, nicotine dependence, and chronic pain. Patient came to the ER after reports of cough, congestion and shortness of breath. Symptoms have been present for over the past 3 days. She reported a fever at home. No sick contacts noted. She is unvaccinated for COVID. She went to the dialysis center where she was sent to the ER to get evaluated for possible COVID. She denies any nausea, vomiting. Poor appetite noted. In the ER she was evaluated. Patient required oxygen. Currently on 2 L per nasal cannula. White count 2.3, hemoglobin 9.4. Platelet count 90. Sodium 137, potassium 3.4. BUN of 32, creatinine 7.6 with a GFR 6. Glucose 98. Troponin 0.14 with a BNP at 96,000. COVID test positive. Chest x-ray showed volume overload. Patient admitted for further evaluation and treatment. Allergies Penicillins Adverse Reaction (Mild, Verified 03/30/19 11:43) SWELLING Home medications list reviewed: Yes Home Medications: carvediloL [Coreg*] 25 mg PO BIDWM 01/30/19 ramipriL [Altace*] 10 mg PO BEDTIME #60 cap 04/29/20 Cetirizine HCl [Zyrtec] 10 mg PO DAILY 06/12/20 Gabapentin 300 mg PO BID 06/12/20 Tizanidine [Zanaflex*] 4 mg PO BID PRN 06/12/20 Amlodipine Besylate [Norvasc] 10 mg PO DAILY #30 tablet 07/12/20 Hydralazine [Apresoline*] 25 mg PO BID #60 tab 07/12/20 - Past Medical/Surgical History Diabetic: Yes -: End-stage renal disease on hemodialysis -: HTN -: End-stage renal disease on hemodialysis -: Chronic diastolic CHF -: Tobacco abuse -: History of drug abuse -: Chronic pain -: Anemia chronic disease -: knee sx -: AV graft Psychosocial/ Personal History: Patient lives with daughter at home - Family History Mother -: Hypertension, Diabetes, Kidney disease - Social History Smoking Status: Heavy Tobacco smoker (>10 cigarettes/day) Counseled patient to stop smoking for: less than 10 minutes Smoking therapy provided: Yes Patient receptive to therapy: No Alcohol use: No CD- Drugs: No Caffeine use: Yes Place of Residence: Home Review of Systems General: Fever, Weakness, Malaise, As per HPI Eyes: Unremarkable ENT: Nose Congestion, As per HPI Respiratory: Cough, Shortness of Breath, As per HPI Cardiovascular: Unremarkable Gastrointestinal: Unremarkable Genitourinary: Unremarkable Musculoskeletal: Unremarkable Integumentary: Unremarkable Neurological: Unremarkable Lymphatics: Unremarkable Physical Examination - Studies Laboratory Data (last 24 hrs) 12/05/21 10:50: PT 12.4, INR 1.08 12/05/21 10:50: WBC 2.30 L, Hgb 9.4 L, Hct 28.0 L, Plt Count 90 L 12/05/21 10:50: Sodium 137, Potassium 3.4 L, BUN 32 H, Creatinine 7.68 H*, Glucose 91, Magnesium 2.1, Total Bilirubin 0.9, AST 40 H, ALT 12, Alkaline Phosphatase 65 Assessment and Plan - Plan COVID: Positive Chest x-ray: COMPARISON: Chest Pa And Lat (2 Views) dated 07/11/2020; Chest Single View dated 07/10/2020; Chest Single View dated 06/11/2020; Chest Single View dated 04/28/2020 FINDINGS: Portable technique limits examination quality. Mild to moderate bilateral pulmonary opacities are seen which may represent pulmonary edema. The heart is moderately enlarged. Right-sided venous catheter has tip right atrium. IMPRESSION: Mild to moderate CHF versus volume overload pattern. Physical Exam: GENERAL: The patient is a well-developed, well-nourished, in no apparent distress. Alert and oriented x3. VITAL SIGNS: Reviewed HEENT: Head is normocephalic and atraumatic. Extraocular muscles are intact. Pupils are equal, round, and reactive to light and accommodation. Nares appeared normal. Dry mouth and dry mucous membranes NECK: Supple. No carotid bruits. No lymphadenopathy or thyromegaly. LUNGS: Decreased bilateral currently on 2 and half liters HEART: Regular rate and rhythm, no appreciable gallops, rubs, murmurs or extra heart sounds ABDOMEN: Soft, nontender, and nondistended. Positive bowel sounds. No hepatosplenomegaly was noted. EXTREMITIES: Without any cyanosis, clubbing, rash, lesions or peripheral edema. NEUROLOGIC: The patient is oriented to person, place and time. Strength and sensation are grossly intact. Face is symmetric. SKIN: Normal color, turgor and temperature. No ulcerations or rashes noted. No edema to the lower extremity Impression: Dyspnea, fever secondary to Covid pneumonia complicated with volume overload related to acute on chronic diastolic CHF exacerbation with possible underlying COPD End-stage renal disease on hemodialysis Hypertension Anemia of chronic disease with thrombocytopenia likely related to above Tobacco abuse Chronic pain GERD Plan: Dyspnea, fever secondary to Covid pneumonia complicated with volume overload related to acute on chronic diastolic CHF exacerbation with possible underlying COPD: Patient will be made for further evaluation and treatment. Patient positive for Covid. Will start IV steroid. Continue with vitamin supplementation. Patient remains on oxygen. Continue to wean off oxygen to maintain sats above 93%. Chest x-ray also shows possible volume overload. Patient with history of diastolic CHF. Troponin likely elevated related to CHF. Will monitor cardiac enzymes and telemetry. Recheck chest x-ray tomorrow. Dialysis has been arranged by nephrology has been consulted. Will consult pulmonology to further evaluate. Possible underlying COPD due to her history of tobacco abuse. Will start COPD medication as well. Continue to monitor and reassess. Likely home within the next 48 hours. Patient will likely require home oxygen at discharge. End-stage renal disease on hemodialysis: Spoke with nephrology. Nephrology plans for dialysis today. Patient gets dialysis every Tuesday, and Tuesday. Hypertension: Restart home medications including carvedilol 25 mg 1 pill twice daily, Norvasc 10 mg daily, ramipril 10 mg daily, and hydralazine 25 mg 1 pill twice daily. Will monitor and adjust appropriately. Parameters in place to hold if blood pressure systolic less than 110. Anemia of chronic disease with thrombocytopenia likely related to above: We will monitor hemoglobin closely. Hold heparin if platelet count less than 90. Thrombocytopenia likely related to viral infection. Will monitor closely. Tobacco abuse: Tobacco cessation addressed in detail. Will provide nicotine patch. Chronic pain: Restart gabapentin. GERD: Continue Pepcid. Code Status: Full Code DVT prophylaxis: Heparin Advanced Care Planning-30 minutes: Home at discharge likely with home oxygen Discharge Plan: Home Plan to discharge in: 48 Hours - Advance Directives Does patient have a Living Will: No Does patient have a Durable POA for Healthcare: No - Code Status/Comfort Care Code Status Assessed: Yes (Patient is full code ) Time Spent Managing Pts Care (In Minutes): 55
[2021-12-05] MEDS ORDERED: ACETAMINOPHEN 500 MG TAB PO PRN (13:45)
[2021-12-05] MEDS ORDERED: ONDANSETRON 4 MG/2 ML VIAL IV PRN (13:45)
[2021-12-05] MEDS ORDERED: ALBUTEROL 2.5 MG/3 ML NEB SOL NEB PRN (13:45)
[2021-12-05] MEDS ORDERED: IPRATROPIUM BROM 0.5MG/2.5ML NEB PRN (13:45)
[2021-12-05] MEDS: METHYLPREDNISOLONE 40 MG INJ IV SCH ×2 (15:12→23:25)
[2021-12-05 15:21] VITALS: BMI 26.9
[2021-12-05] MEDS ORDERED: INFLUENZA VACCINE (for 6+ mo) 0.5 ML DOSE IMVAC ONE (17:00)
[2021-12-05] MEDS: carvediloL 25 MG TAB PO SCH (17:14)
[2021-12-05] MEDS ORDERED: POTASSIUM CL SA 10 MEQ TAB PO ONE (18:00)
--- NOTE | 2021-12-05 18:21 | CON ---
Date of Consultation: 12/05/2021 Reason For Consult: ESRD, on dialysis. History Of Present Illness: Ms. Harris is a 61-year-old female with past medical history significan t for history of ESRD, on dialysis, who presented to her dialysis center today with 4 days of decreas ed appetite, poor p.o. intake, and low-grade fevers. They had to send her here by EMS because she harris d a fever and to get further evaluation because she did not look good. The patient tested positive f or COVID and is requesting dialysis at this time. Past Medical History: Significant for history of ESRD, on dialysis; hypertension; anemia of chronic disease; history of drug abuse; and chronic pain. Social History: She lives with her daughter at home. Family History: Noncontributory. Review of Systems: Unable to be obtained at this time. The patient is a very poor historian. Physical Examination: Vital Signs: Showing temperature of 101.1, pulse rate of 87, respiratory rate of 18, blood pressure of 137/66, O2 saturation of 97% on 3 L of nasal cannula oxygen. General: She appears cachectic, malnourished. Cachexia and muscle wasting noted. HEENT: Atraumatic head. Lungs: Auscultation of lungs revealed bilateral equal air entry with diminished breath sounds at bas es. Abdomen: Soft and nontender. Extremities: Showed no evidence of edema. Current Medications: Have been reviewed in detail. She has been started on Solu-Medrol 40 mg every 8 hours and she has not been started on any antibiotics at this time. Chest x-ray done today is show ing mild to moderate CHF versus volume overload pattern. Laboratory Data: Has been reviewed. Impression: 1.End-stage renal disease, on dialysis. 2.Hypokalemia. 3.COVID-19 pneumonia. 4.Anemia secondary to chronic disease. 5.Malnutrition. 6.Drug abuse. 7.Hypertension. Plan: The patient will be getting dialysis today per her regular schedule and we will try to ultrafi lter about 1-2 L. She clinically does not appear volume overloaded, even though her chest x-ray show ing some congestion. Hence, we will try to ultrafilter about 1-2 L as tolerated and monitor her labs closely. The patient has been started on steroids for her COVID-19 pneumonia. We will continue to follow up closely with her and follow up on her dialysis needs. VV/MODL Voice ID: [id number] Report ID: [id number]
[2021-12-05 19:07] LABS: Creatine Phosphokinase 67 U/L (26-192); Troponin I 0.12 ng/mL (0.0-0.045)
[2021-12-05 19:08] LABS: CKMB Creatine Kinase MB < 1.0 ng/mL (1.0-3.6)
[2021-12-05] MEDS ORDERED: IPRATROPIUM BROM 0.5MG/2.5ML ONE (20:15)
[2021-12-05] MEDS ORDERED: ARFORMOTEROL TARTRATE 15 MCG/2 ML VIAL.NEB ONE (20:15)
[2021-12-05] MEDS ORDERED: HYDRALAZINE HCL 25 MG TABLET PO SCH (21:00)
[2021-12-05] MEDS ORDERED: TIZANIDINE 4 MG TABLET PO PRN (21:10)
[2021-12-05] MEDS: GABAPENTIN 300 MG CAP PO SCH (23:20)
[2021-12-05] MEDS: CALCIUM ACETATE 667 MG TAB PO SCH (23:20)
[2021-12-05] MEDS: HEPARIN 5000 UNIT/ML 1 ML VIAL SQ SCH (23:26)
[2021-12-06] MEDS: ARFORMOTEROL TARTRATE 15 MCG/2 ML VIAL.NEB NEB SCH ×2 (00:25→08:00)
[2021-12-06 00:51] LABS: Creatine Phosphokinase 60 U/L (26-192)
[2021-12-06 00:57] LABS: CKMB Creatine Kinase MB < 1.0 ng/mL (1.0-3.6)
[2021-12-06] MEDS: carvediloL 25 MG TAB PO SCH ×2 (04:38→17:03)
--- NOTE | 2021-12-06 05:59 | P.PN ---
Subjective Date of Service: 12/06/21 Primary Care Provider: unknown; Nephrology-Dr. Berry Chief Complaint: SOB, body aches and fever Subjective: Other (Still with weakness, cough and congestion. Tmax 101) Physical Examination - Vital Signs Temperature: 97.7 F Blood Pressure: 206/93 Pulse: 61 Respirations: 19 Pulse Ox (%): 98 - Studies Laboratory Data (last 24 hrs) 12/05/21 10:50: PT 12.4, INR 1.08 12/05/21 10:50: WBC 2.30 L, Hgb 9.4 L, Hct 28.0 L, Plt Count 90 L 12/05/21 10:50: Sodium 137, Potassium 3.4 L, BUN 32 H, Creatinine 7.68 H*, Glucose 91, Magnesium 2.1, Total Bilirubin 0.9, AST 40 H, ALT 12, Alkaline Phosphatase 65 Assessment & Plan Discharge Plan: Home Plan to discharge in: 48 Hours Physician Review Additional Text: COVID: Positive Chest x-ray: COMPARISON: Chest Pa And Lat (2 Views) dated 07/11/2020; Chest Single View dated 07/10/2020; Chest Single View dated 06/11/2020; Chest Single View dated 04/28/2020 FINDINGS: Portable technique limits examination quality. Mild to moderate bilateral pulmonary opacities are seen which may represent pulmonary edema. The heart is moderately enlarged. Right-sided venous catheter has tip right atrium. IMPRESSION: Mild to moderate CHF versus volume overload pattern. Follow up CXR 12/06/2021: Pending Physical Exam: GENERAL: Still with cough and congestion. VITAL SIGNS: Reviewed HEENT: Head is normocephalic and atraumatic. Extraocular muscles are intact. Pupils are equal, round, and reactive to light and accommodation. Nares appeared normal. Dry mouth and dry mucous membranes NECK: Supple. No carotid bruits. No lymphadenopathy or thyromegaly. LUNGS: Decreased bilateral currently on 1 L/m HEART: Regular rate and rhythm, no appreciable gallops, rubs, murmurs or extra heart sounds ABDOMEN: Soft, nontender, and nondistended. Positive bowel sounds. No hepatosplenomegaly was noted. EXTREMITIES: Without any cyanosis, clubbing, rash, lesions or peripheral edema. NEUROLOGIC: The patient is oriented to person, place and time. Strength and s ensation are grossly intact. Face is symmetric. SKIN: Normal color, turgor and temperature. No ulcerations or rashes noted. No edema to the lower extremity Impression: Dyspnea, fever secondary to Covid pneumonia complicated with volume overload related to acute on chronic diastolic CHF exacerbation with possible underlying COPD End-stage renal disease on hemodialysis Hypertension Anemia of chronic disease with thrombocytopenia and neutropenia related to above Tobacco abuse Chronic pain GERD Plan: Dyspnea, fever secondary to Covid pneumonia complicated with volume overload related to acute on chronic diastolic CHF exacerbation with possible underlying COPD: Patient still with increased cough, congestion. Currently on 1 L per nasal cannula. Patient with neutropenia. Likely from Covid infection. CRP and ferritin elevated. Continue with IV steroid, vitamin supplementation. Continue to wean off oxygen to maintain sats above 93%. Pulmonology consulted to further evaluate. Due to her neutropenia we will add Levaquin IV. Obtain blood cultures. Recheck chest x-ray today. Await recommendations from pulmonology. Consider Granix if still with persistent neutropenia. Patient received dialysis yesterday. Chest x-ray showed possible overload. Breathing improved. Continue with dialysis. Patient also being treated for possible underlying COPD. Anticipate continued improvement over the next 48 hours. I will turn to service over to the hospitalist team tomorrow. I will go plan of care with him. End-stage renal disease on hemodialysis: Spoke with nephrology yesterday. Patient received dialysis yesterday. Patient will continue with dialysis every Tuesday, and Tuesday. Hypertension: Blood pressure elevated. Will increase hydralazine to 50 mg 1 pill twice daily. Continue carvedilol 25 mg 1 pill twice daily, Norvasc 10 mg daily and ramipril 10 mg daily. Continue to monitor and adjust medication. Anemia of chronic disease with thrombocytopenia and neutropenia related to above: Neutropenia noted today. Will obtain blood culture. Levaquin added. Consider Granix if neutropenia persists. Thrombocytopenia and neutropenia likely related to Covid infection. Continue with above plan of care. Tobacco abuse: Tobacco cessation addressed in detail. Will provide nicotine patch. Chronic pain: Continue gabapentin. GERD: Continue Pepcid. Code Status: Full Code DVT prophylaxis: Heparin Advanced Care Planning-30 minutes: Home at discharge likely with home oxygen within the next 48 hours. Time Spent Managing Pts Care (In Minutes): 55
[2021-12-06 06:02] LABS: Absolute Lymphocytes (CBC) 0.3 K/uL (0.7-4.9); Hematocrit 29.8 % (36.0-45.0); Lymphocytes % 34.4 % (15.3-44.8); MPV 9.4 fL (7.6-11.3); RBC Red Blood Cell Count 3.14 M/uL (3.86-4.86)
[2021-12-06 06:27] LABS: C-Reactive Protein 7.58 mg/L (<3.00); Ferritin 1608.7 ng/mL (8-388)
[2021-12-06 06:33] LABS: Magnesium 2.3 mg/dL (1.8-2.4); Potassium 4.4 mmol/L (3.5-5.1); Thyroid Stimulating Hormone 0.297 uIU/mL (0.360-3.740)
[2021-12-06] MEDS ORDERED: Levofloxacin500mg IV 500 MG/100 ML BAG IV ONE (07:00)
--- NOTE | 2021-12-06 08:02 | RAD REPORT ---
EXAM DESCRIPTION: Robbin Single View12/06/2021 6:30 am CLINICAL HISTORY: Shortness of breath COMPARISON: November 2021 FINDINGS: Minimal worsening in [id number] bilateral pulmonary opacities. Heart is enlarged. C entral venous catheter in place IMPRESSION: Minimal worsening in [id number] pulmonary opacities which represent pulmonary malina ma or pneumonia
[2021-12-06] MEDS: NICOTINE 21 MG/PAT TD SCH (08:13)
[2021-12-06] MEDS: GABAPENTIN 300 MG CAP PO SCH ×2 (08:14→21:46)
[2021-12-06] MEDS: ASCORBIC ACID 500 MG TABLET PO SCH (08:14)
[2021-12-06] MEDS: ZINC SULFATE 220 MG CAP PO SCH (08:14)
[2021-12-06] MEDS: CALCIUM ACETATE 667 MG TAB PO SCH ×3 (08:14→17:03)
[2021-12-06] MEDS: FAMOTIDINE 20 MG TAB PO SCH (08:14)
[2021-12-06] MEDS: ramipriL 5 MG CAP PO SCH (08:14)
[2021-12-06] MEDS: VITAMIN D 1000 UNIT TAB PO SCH (08:14)
[2021-12-06] MEDS: HEPARIN 5000 UNIT/ML 1 ML VIAL SQ SCH ×2 (08:15→21:46)
[2021-12-06] MEDS: AMLODIPINE 10 MG TAB PO SCH (08:16)
[2021-12-06] MEDS: METHYLPREDNISOLONE 40 MG INJ IV SCH ×2 (08:17→21:46)
[2021-12-06] MEDS: THIAMINE HCL 100 MG TABLET PO SCH (08:17)
[2021-12-06] MEDS ORDERED: HYDRALAZINE HCL 25 MG TABLET PO SCH (09:00)
[2021-12-06 10:51] LABS: Blood Morphology Comment NOT SEEN (NOT SEEN); Platelet Estimate DECR; Platelets, Giant PRESENT
--- NOTE | 2021-12-06 11:06 | P.CNS ---
Date of Consult: 12/06/21 Primary Care Provider: unknown; Nephrology-Dr. Berry Chief Complaint: SOB, body aches and fever History of Present Illness: Patient is 61 years of age anabolic syndrome end-stage renal disease smoker chronic pain admitted with respiratory complaints cough congestion shortness of breath tested for COVID Patient is not neutropenic Allergies Penicillins Adverse Reaction (Mild, Verified 03/30/19 11:43) SWELLING Home Medications: Calcium Acetate 2 cap PO TIDWM 12/05/21 Carvedilol [Coreg] 25 mg PO BID 12/05/21 Gabapentin 300 mg PO BID 12/05/21 Hydralazine [Apresoline*] 50 mg PO BID 12/05/21 Nifedipine [Nifedipine ER] 30 mg PO DAILY 12/05/21 Ramipril [Altace] 10 mg PO BEDTIME 12/05/21 Tizanidine [Zanaflex*] 4 mg PO BID PRN 12/05/21 - Past Medical/Surgical History Diabetic: Yes -: End-stage renal disease on hemodialysis -: HTN -: End-stage renal disease on hemodialysis -: Chronic diastolic CHF -: Tobacco abuse -: History of drug abuse -: Chronic pain -: Anemia chronic disease -: knee sx -: AV graft Psychosocial/ Personal History: Patient lives with daughter at home - Family History Mother Medical History: Hypertension, Diabetes, Kidney disease - Social History Smoking Status: Current every day smoker Alcohol use: No CD- Drugs: No Caffeine use: Yes Place of Residence: Home Review of Systems General: Weakness Respiratory: Cough, Shortness of Breath Physical Examination Temp Pulse Resp BP Pulse Ox 97.0 F 66 24 H 213/88 H 99 12/06/21 08:00 12/06/21 08:00 12/06/21 08:00 12/06/21 08:00 12/06/21 08:00 General: Alert, Oriented x3, Cooperative Laboratory Data (last 24 hrs) 12/06/21 05:36: Sodium 135 L, Potassium 4.4, BUN 21 H, Creatinine 4.78 H D, Glucose 309 H, Magnesium 2.3, Triglycerides 317 H, Cholesterol 159, HDL Cholesterol 17 L, Cholesterol/HDL Ratio 9.35 12/06/21 05:36: WBC 0.70 L* D, Hgb 9.9 L, Hct 29.8 L, Plt Count 94 L 12/06/21 00:16: Potassium 4.0 12/05/21 18:24: Troponin I 0.12 H 12/05/21 10:50: PT 12.4, INR 1.08 12/05/21 10:50: WBC 2.30 L, Hgb 9.4 L, Hct 28.0 L, Plt Count 90 L 12/05/21 10:50: Sodium 137, Potassium 3.4 L, BUN 32 H, Creatinine 7.68 H*, Glucose 91, Magnesium 2.1, Total Bilirubin 0.9, AST 40 H, ALT 12, Alkaline Phosphatase 65 - Problems (1) COVID-19 virus infection Current Visit: Yes Status: Acute Plan: Patient is 61 years of age admitted with upper respiratory tract symptoms possibly mild COVID-pneumonia end-stage renal disease urination is satisfactory he is now neutropenic exclude sepsis blood cultures are pending chest x-ray appears to be clear agree with antibiotics reduce the dose of IV steroid possible underlying obstructive airways disease change to inhaled Dulera DC nebulized Brovana
--- NOTE | 2021-12-06 13:07 | PN ---
Date of Progress Note: 12/06/2021 Subjective: The patient was seen and examined at bedside. She is doing much better. She was seen e ating. She is not requiring any oxygen. She had dialysis last night. Physical Examination: Vital Signs: Showing temperature of 97, pulse rate of 66, respiratory rate of 24, and blood pressure 213/88. General: She appears in no acute distress. Lungs: Clear to auscultation with diminished breath sounds overall. Abdomen: Soft and nontender. Heart: Auscultation of the heart revealed regular rate and rhythm. Extremities: Showed no evidence of edema. Laboratory Data: At this time are showing labs consistent with ESRD. Inflammatory markers are being trended. Troponin was slightly elevated, but okay. C-reactive protein was 7.258. CBC showed sever e pancytopenia with WBC count of 0.7, hemoglobin of 9.9, hematocrit 29.8, and platelet count of 94. Current Medications: Include Tylenol p.r.n. for pain, amlodipine 10 mg a day, carvedilol 25 mg b.i.d ., hydralazine 50 mg b.i.d., Levaquin 1 time dose was given, Solu-Medrol 40 mg every 12 hours, ramipr il 10 mg a day. Impression: 1.End-stage renal disease, on dialysis. The patient had dialysis yesterday. 2.Uncontrolled hypertension. The patient's home medications have been restarted. We will go ahead and order clonidine as well for additional blood pressure control. If blood pressure fails to improv e with this current regimen, but would be cautious because of bradycardia also with concurrent use of carvedilol high dose. 3.COVID-19 pneumonia. The patient has been started on steroids. Continue to monitor chest x-ray sh owing concerning findings for pulmonary edema and interstitial involvement. Continue to monitor oxyg en requirements. She got 1 time dose of Levaquin. 4.Pancytopenia, etiology unclear. Continue to monitor closely. Avoid medications that can suppress bone marrow. 5.Anemia secondary to chronic disease. Continue to monitor closely and give Retacrit as tolerated. Plan: Patient is doing okay in terms of her COVID-19 pneumonia. Her oxygen level seems to be stable . She seems to be eating better. Her temperature curve is also improving. Continue to monitor clos kerry. We will plan for dialysis on Tuesday per her regular schedule. No acute volume issues noted ev en though chest x-ray showed some pulmonary edema. Continue to monitor blood pressures closely and c ontinue to adjust medications as tolerated. We will go ahead and increase the hydralazine dose to 3 times a day to improve control of blood pressure and follow up closely. VV/MODL Voice ID: [id number] Report ID: [id number]
[2021-12-06] MEDS: HYDRALAZINE HCL 25 MG TABLET PO SCH ×2 (13:31→21:46)
[2021-12-06] MEDS: DULERA 200/5 (MOMETASONE/FORMOTEROL) INHALER IH SCH (21:00)
[2021-12-06] MEDS: BENZONATATE 100 MG CAP PO PRN (21:46)
[2021-12-07] MEDS: BENZONATATE 100 MG CAP PO PRN ×2 (03:53→21:43)
[2021-12-07 04:00] LABS: Absolute Lymphocytes (CBC) 0.4 K/uL (0.7-4.9); Hematocrit 29.1 % (36.0-45.0); MPV 10.5 fL (7.6-11.3); RBC Red Blood Cell Count 3.08 M/uL (3.86-4.86)
[2021-12-07 04:34] LABS: C-Reactive Protein 4.54 mg/L (<3.00); Ferritin 1256.7 ng/mL (8-388); Magnesium 2.6 mg/dL (1.8-2.4); Potassium 4.8 mmol/L (3.5-5.1)
[2021-12-07] MEDS: carvediloL 25 MG TAB PO SCH ×2 (05:29→17:29)
--- NOTE | 2021-12-07 07:47 | RAD REPORT ---
EXAM DESCRIPTION: Robbin Single View12/07/2021 7:09 am CLINICAL HISTORY: Shortness breath COMPARISON: December 06, 2021 FINDINGS: Minimal improvement in the bilateral pulmonary opacities. Heart remains enlarged. Central venous catheter remains in place
[2021-12-07] MEDS: CALCIUM ACETATE 667 MG TAB PO SCH ×3 (09:10→17:28)
[2021-12-07] MEDS: METHYLPREDNISOLONE 40 MG INJ IV SCH ×2 (09:50→21:44)
[2021-12-07] MEDS: HEPARIN 5000 UNIT/ML 1 ML VIAL SQ SCH ×2 (09:50→21:44)
[2021-12-07] MEDS: THIAMINE HCL 100 MG TABLET PO SCH (09:50)
[2021-12-07] MEDS: VITAMIN D 1000 UNIT TAB PO SCH (09:50)
[2021-12-07] MEDS: ASCORBIC ACID 500 MG TABLET PO SCH (09:50)
[2021-12-07] MEDS: ZINC SULFATE 220 MG CAP PO SCH (09:50)
[2021-12-07] MEDS: NICOTINE 21 MG/PAT TD SCH (09:50)
[2021-12-07] MEDS: HYDRALAZINE HCL 25 MG TABLET PO SCH ×3 (09:50→21:43)
[2021-12-07] MEDS: AMLODIPINE 10 MG TAB PO SCH (09:50)
[2021-12-07] MEDS: DULERA 200/5 (MOMETASONE/FORMOTEROL) INHALER IH SCH ×2 (09:50→21:44)
[2021-12-07] MEDS: FAMOTIDINE 20 MG TAB PO SCH (09:50)
[2021-12-07] MEDS: ramipriL 5 MG CAP PO SCH (09:50)
[2021-12-07] MEDS: GABAPENTIN 300 MG CAP PO SCH ×2 (09:50→21:43)
[2021-12-07] MEDS ORDERED: NA CHLORIDE 0.9% 1,000 ML IV PRN (11:48)
[2021-12-07] MEDS ORDERED: MANNITOL 25% 12.5 GM/50 ML VIAL IV PRN (11:48)
[2021-12-07] MEDS ORDERED: ALBUMIN HUMAN 25% 50 ML IV SCH (12:00)
[2021-12-07] MEDS: cloNIDine HCL 0.1 MG TAB PO ONE ×2 (12:08→12:52)
--- NOTE | 2021-12-07 19:08 | P.PN ---
Subjective Date of Service: 12/07/21 Patient scheduled for HD; still with volume overload; COVID positive Review of Systems 10-point ROS is otherwise unremarkable Physical Examination - Vital Signs Temperature: 97.5 F Blood Pressure: 195/87 Pulse: 69 Respirations: 16 Pulse Ox (%): 100 - Physical Exam General: Alert, In no apparent distress HEENT: Atraumatic, PERRLA, EOMI Neck: Supple, JVD not distended Respiratory: Clear to auscultation bilaterally, Normal air movement Cardiovascular: Regular rate/rhythm, Normal S1 S2 Gastrointestinal: Normal bowel sounds, No tenderness Musculoskeletal: No tenderness Integumentary: No rashes Neurological: Normal speech, Normal tone, Normal affect Lymphatics: No axilla or inguinal lymphadenopathy - Studies Medications List Reviewed: Yes Assessment & Plan - Problems (Diagnosis) (1) COVID-19 virus infection Current Visit: Yes Status: Acute (2) ESRD (end stage renal disease) Current Visit: No Status: Acute (3) Fluid overload Current Visit: No Status: Acute (4) Viral gastroenteritis Current Visit: No Status: Acute - Advance Directives Does patient have a Living Will: No Does patient have a Durable POA for Healthcare: No
[2021-12-07] MEDS ORDERED: HYDRALAZINE HCL 25 MG TABLET PO SCH (21:00)
[2021-12-07] MEDS ORDERED: RAMIPRIL 10 MG PO SCH (21:00)
[2021-12-07] MEDS ORDERED: carvediloL 25 MG TAB PO SCH (21:00)
[2021-12-07] MEDS ORDERED: GABAPENTIN 300 MG CAP PO SCH (21:00)
--- NOTE | 2021-12-07 21:26 | P.PN ---
Date of Service: 12/07/21 Vital Signs Temp Pulse Resp BP Pulse Ox 97.6 F 66 18 186/84 H 99 12/07/21 20:00 12/07/21 20:00 12/07/21 20:00 12/07/21 20:00 12/07/21 20:00 Medications Acetaminophen (Acetaminophen 500 Mg Tab) 500 mg PO Q4HP PRN PRN Reason: TEMP > 101' F Albuterol Sulfate (Albuterol 2.5 Mg/3 Ml Neb Erma) 2.5 mg NEB [id number] PRN PRN Reason: SHORTNESS OF BREATH Amlodipine Besylate (Amlodipine 10 Mg Tab) 10 mg PO DAILY [facility] Last Admin: 12/07/21 09:50 Dose: 10 mg Documented by: Ascorbic Acid (Ascorbic Acid 500 Mg Tablet) 500 mg PO DAILY [facility] Last Admin: 12/07/21 09:50 Dose: 500 mg Documented by: Benzonatate (Benzonatate 100 Mg Cap) 100 mg PO TID PRN PRN Reason: COUGH Last Admin: 12/07/21 03:53 Dose: 100 mg Documented by: Calcium Acetate (Calcium Acetate 667 Mg Tab) 1,334 mg PO TIDWM [facility] Last Admin: 12/07/21 17:28 Dose: 1,334 mg Documented by: Carvedilol (Carvedilol 25 Mg Tab) 25 mg PO BID 6AM 6PM [facility] Last Admin: 12/07/21 17:29 Dose: 25 mg Documented by: Cholecalciferol (Vitamin D 1000 Unit Tab) 1,000 unit PO DAILY [facility] Last Admin: 12/07/21 09:50 Dose: 1,000 unit Documented by: Famotidine (Famotidine 20 Mg Tab) 20 mg PO DAILY [facility]; Protocol Last Admin: 12/07/21 09:50 Dose: 20 mg Documented by: Gabapentin (Gabapentin 300 Mg Cap) 300 mg PO BID [facility] Last Admin: 12/07/21 09:50 Dose: 300 mg Documented by: Heparin Sodium (Porcine) (Heparin 5000 Unit/Ml 1 Ml Vial) 5,000 unit SQ Q12HR [facility] Last Admin: 12/07/21 09:50 Dose: 5,000 unit Documented by: Heparin Sodium (Porcine) (Heparin 1,000 Unit/Ml Vial) 6,000 unit IV EVERY HD PRN PRN Reason: AFTER EACH Last Admin: 12/07/21 15:58 Dose: 6,000 unit Documented by: Hydralazine HCl (Hydralazine Hcl 25 Mg Tablet) 50 mg PO TID [facility] Last Admin: 12/07/21 13:35 Dose: Not Given Documented by: Levofloxacin/Dextrose (Levaquin 250mg/50 Ml Ivpb) 250 mg in 50 mls @ 50 mls/hr IV Q48H [facility] Sodium Chloride (Ns 1000 Ml Ivbag) 1,000 mls @ 0 mls/hr IV .Q0M PRN; Protocol PRN Reason: Priming and BP support at HD Stop: 12/07/21 23:59 Albumin Human (Albumin 25%) 50 mls @ 100 mls/hr IV EVERY HD [facility] Ipratropium [place] (Ipratropium Brom 0.5mg/2.5ml) 0.5 mg NEB [id number] PRN PRN Reason: SHORTNESS OF BREATH Last Admin: 12/06/21 00:25 Dose: 0.5 mg Documented by: Mannitol (Mannitol 25% 12.5 Gm/50 Ml Vial) 12.5 gm IV EVERY HD PRN PRN Reason: Titrate to SBP (MUST DEFINE) Methylprednisolone Sodium Succinate (Methylprednisolone 40 Mg Inj) 40 mg IV Q12HR [facility] Last Admin: 12/07/21 09:50 Dose: 40 mg Documented by: Nicotine (Nicotine 21 Mg/Pat) 21 mg TD DAILY [facility] Last Admin: 12/07/21 09:50 Dose: 21 mg Documented by: Ondansetron HCl (Ondansetron 4 Mg/2 Ml Vial) 4 mg IV Q6HP PRN PRN Reason: NAUSEA / VOMITING Sodium Chloride (Flush Normal Saline 10 Ml) 10 ml IV BID [facility] Last Admin: 12/07/21 09:00 Dose: 10 ml Documented by: Thiamine HCl (Thiamine Hcl 100 Mg Tablet) 100 mg PO DAILY [facility] Last Admin: 12/07/21 09:50 Dose: 100 mg Documented by: Tizanidine HCl (Tizanidine 4 Mg Tablet) 4 mg PO BID PRN PRN Reason: muscle cramps Last Admin: 12/05/21 23:23 Dose: 4 mg Documented by: Zinc Sulfate (Zinc Sulfate 220 Mg Cap) 220 mg PO DAILY [facility] Last Admin: 12/07/21 09:50 Dose: 220 mg Documented by: Assessment/ Plan: Nephrology No dyspnea No chest pain No acute events overnight Vitals, medications, blood work and imaging reviewed in the chart NAD. NCAT. MMM. Neck supple. Normal respiratory effort. RRR. ND Abd. No C/C/E. No rash. AAO. Normal speech. A/P Continue the current POC and Medications other than the changes listed below. AM labs as ordered. Daily weight. ESRD -HD TIW HTN with CKD/ CHF -Continue Amlodipine Diastolic CHF, chronic -HD with UF Moderate malnlutrition -Start Nepro Anemia in CKD -Start Procrit CKD MBD -Continue Phoslo -Start Vitamin D Acute COVID-19 -Continue steroids
[2021-12-08] MEDS: HYDRALAZINE HCL 20 MG/ML VIAL IV PRN (03:01)
[2021-12-08] MEDS: carvediloL 25 MG TAB PO SCH ×2 (05:57→18:33)
[2021-12-08 06:20] LABS: Absolute Lymphocytes (CBC) 0.4 K/uL (0.7-4.9); Hematocrit 28.5 % (36.0-45.0); Lymphocytes % 13.3 % (15.3-44.8); MPV 10.7 fL (7.6-11.3); RBC Red Blood Cell Count 2.97 M/uL (3.86-4.86)
[2021-12-08] MEDS ORDERED: Levofloxacin 250mg IV 250 MG/50 ML BAG IV SCH (07:00)
[2021-12-08 08:00] LABS: BUN Blood Urea Nitrogen 38 mg/dL (7-18); Bicarbonate 25 mmol/L (21-32); C-Reactive Protein < 2.90 mg/L (<3.00); Ferritin 942.6 ng/mL (8-388); Glucose Level 298 mg/dL (74-106); Magnesium 2.5 mg/dL (1.8-2.4); Potassium 4.6 mmol/L (3.5-5.1); Sodium Level 135 mmol/L (136-145)
[2021-12-08] MEDS: CALCIUM ACETATE 667 MG TAB PO SCH ×3 (08:45→17:00)
[2021-12-08] MEDS ORDERED: NIFEDIPINE XL 30 MG TABLET PO SCH (09:00)
[2021-12-08] MEDS: NEPRO SHAKE 237 ML CAN PO SCH ×3 (09:00→21:35)
[2021-12-08] MEDS ORDERED: EPOETIN ALFA 10,000 UNIT/ML VIAL SQ SCH (09:00)
[2021-12-08] MEDS: VITAMIN D 5,000 UNIT CAP PO SCH (09:00)
[2021-12-08] MEDS: DULERA 200/5 (MOMETASONE/FORMOTEROL) INHALER IH SCH ×2 (09:16→21:34)
[2021-12-08] MEDS: NICOTINE 21 MG/PAT TD SCH (09:17)
[2021-12-08] MEDS: ASCORBIC ACID 500 MG TABLET PO SCH (09:18)
[2021-12-08] MEDS: ZINC SULFATE 220 MG CAP PO SCH (09:18)
[2021-12-08] MEDS: GABAPENTIN 300 MG CAP PO SCH ×2 (09:18→21:35)
[2021-12-08] MEDS: HYDRALAZINE HCL 25 MG TABLET PO SCH ×3 (09:18→21:34)
[2021-12-08] MEDS: VITAMIN D 1000 UNIT TAB PO SCH (09:18)
[2021-12-08] MEDS: AMLODIPINE 10 MG TAB PO SCH (09:18)
[2021-12-08] MEDS: METHYLPREDNISOLONE 40 MG INJ IV SCH ×2 (09:19→21:00)
[2021-12-08] MEDS: THIAMINE HCL 100 MG TABLET PO SCH (09:19)
[2021-12-08] MEDS: FAMOTIDINE 20 MG TAB PO SCH (09:19)
[2021-12-08] MEDS: CALCITROL 0.25 MCG CAP PO SCH (09:19)
[2021-12-08] MEDS: HEPARIN 5000 UNIT/ML 1 ML VIAL SQ SCH ×2 (09:19→21:34)
[2021-12-08] MEDS: BENZONATATE 100 MG CAP PO PRN (13:51)
--- NOTE | 2021-12-08 20:36 | P.PN ---
Date of Service: 12/08/21 Vital Signs Temp Pulse Resp BP Pulse Ox 98.2 F 72 19 181/77 H 100 12/08/21 20:00 12/08/21 20:00 12/08/21 20:00 12/08/21 20:00 12/08/21 20:00 Medications Acetaminophen (Acetaminophen 500 Mg Tab) 500 mg PO Q4HP PRN PRN Reason: TEMP > 101' F Albuterol Sulfate (Albuterol 2.5 Mg/3 Ml Neb Erma) 2.5 mg NEB [id number] PRN PRN Reason: SHORTNESS OF BREATH Amlodipine Besylate (Amlodipine 10 Mg Tab) 10 mg PO DAILY [facility] Last Admin: 12/08/21 09:18 Dose: 10 mg Documented by: Ascorbic Acid (Ascorbic Acid 500 Mg Tablet) 500 mg PO DAILY [facility] Last Admin: 12/08/21 09:18 Dose: 500 mg Documented by: Benzonatate (Benzonatate 100 Mg Cap) 100 mg PO TID PRN PRN Reason: COUGH Last Admin: 12/08/21 13:51 Dose: 100 mg Documented by: Calcitriol (Calcitrol 0.25 Mcg Cap) 0.5 mcg PO DAILY [facility] Last Admin: 12/08/21 09:19 Dose: 0.5 mcg Documented by: Calcium Acetate (Calcium Acetate 667 Mg Tab) 1,334 mg PO TIDWM [facility] Last Admin: 12/08/21 17:00 Dose: 1,334 mg Documented by: Carvedilol (Carvedilol 25 Mg Tab) 25 mg PO BID 6AM 6PM [facility] Last Admin: 12/08/21 18:33 Dose: 25 mg Documented by: Cholecalciferol (Vitamin D 5,000 Unit Cap) 5,000 unit PO DAILY [facility] Last Admin: 12/08/21 09:00 Dose: 5,000 unit Documented by: Enteral Nutritional Formula (Nepro Shake 237 Ml Can) 240 ml PO TID [facility] Last Admin: 12/08/21 13:48 Dose: 240 ml Documented by: Famotidine (Famotidine 20 Mg Tab) 20 mg PO DAILY [facility]; Protocol Last Admin: 12/08/21 09:19 Dose: 20 mg Documented by: Gabapentin (Gabapentin 300 Mg Cap) 300 mg PO BID [facility] Last Admin: 12/08/21 09:18 Dose: 300 mg Documented by: Heparin Sodium (Porcine) (Heparin 5000 Unit/Ml 1 Ml Vial) 5,000 unit SQ Q12HR [facility] Last Admin: 12/08/21 09:19 Dose: 5,000 unit Documented by: Heparin Sodium (Porcine) (Heparin 1,000 Unit/Ml Vial) 6,000 unit IV EVERY HD PRN PRN Reason: AFTER EACH Last Admin: 12/07/21 15:58 Dose: 6,000 unit Documented by: Hydralazine HCl (Hydralazine Hcl 25 Mg Tablet) 50 mg PO TID [facility] Last Admin: 12/08/21 13:48 Dose: 50 mg Documented by: Hydralazine HCl (Hydralazine Hcl 20 Mg/Ml Vial) 10 mg IV Q6HP PRN PRN Reason: Titrate to SBP (MUST DEFINE) Last Admin: 12/08/21 03:01 Dose: 10 mg Documented by: Levofloxacin/Dextrose (Levaquin 250mg/50 Ml Ivpb) 250 mg in 50 mls @ 50 mls/hr IV Q48H [facility] Last Admin: 12/08/21 05:57 Dose: 50 mls Documented by: Albumin Human (Albumin 25%) 50 mls @ 100 mls/hr IV EVERY HD [facility] Ipratropium [place] (Ipratropium Brom 0.5mg/2.5ml) 0.5 mg NEB [id number] PRN PRN Reason: SHORTNESS OF BREATH Last Admin: 12/06/21 00:25 Dose: 0.5 mg Documented by: Mannitol (Mannitol 25% 12.5 Gm/50 Ml Vial) 12.5 gm IV EVERY HD PRN PRN Reason: Titrate to SBP (MUST DEFINE) Methylprednisolone Sodium Succinate (Methylprednisolone 40 Mg Inj) 40 mg IV Q12HR [facility] Last Admin: 12/08/21 09:19 Dose: 40 mg Documented by: Nicotine (Nicotine 21 Mg/Pat) 21 mg TD DAILY [facility] Last Admin: 12/08/21 09:17 Dose: 21 mg Documented by: Ondansetron HCl (Ondansetron 4 Mg/2 Ml Vial) 4 mg IV Q6HP PRN PRN Reason: NAUSEA / VOMITING Sodium Chloride (Flush Normal Saline 10 Ml) 10 ml IV BID [facility] Last Admin: 12/08/21 09:00 Dose: 10 ml Documented by: Thiamine HCl (Thiamine Hcl 100 Mg Tablet) 100 mg PO DAILY [facility] Last Admin: 12/08/21 09:19 Dose: 100 mg Documented by: Tizanidine HCl (Tizanidine 4 Mg Tablet) 4 mg PO BID PRN PRN Reason: muscle cramps Last Admin: 12/05/21 23:23 Dose: 4 mg Documented by: Zinc Sulfate (Zinc Sulfate 220 Mg Cap) 220 mg PO DAILY [facility] Last Admin: 12/08/21 09:18 Dose: 220 mg Documented by: Assessment/ Plan: Nephrology No dyspnea No chest pain Feeling better No acute events overnight Vitals, medications, blood work and imaging reviewed in the chart NAD. NCAT. MMM. Neck supple. Normal respiratory effort. RRR. ND Abd. No C/C/E. No rash. AAO. Normal speech. A/P Continue the current POC and Medications other than the changes listed below. AM labs as ordered. Daily weight. ESRD -HD TIW HTN with CKD/ CHF -Continue Amlodipine Diastolic CHF, chronic -HD with UF Moderate malnlutrition -Continue Nepro Anemia in CKD -Continue Procrit CKD MBD -Continue Phoslo -Continue Vitamin D Acute COVID-19 -Continue steroids
[2021-12-09] MEDS ORDERED: HYDRALAZINE HCL 25 MG TABLET PO ONE (01:40)
[2021-12-09] MEDS: carvediloL 25 MG TAB PO SCH ×2 (06:24→17:09)
[2021-12-09 06:26] LABS: Absolute Lymphocytes (CBC) 0.8 K/uL (0.7-4.9); Hematocrit 29.2 % (36.0-45.0); Lymphocytes % 17.3 % (15.3-44.8); MPV 10.1 fL (7.6-11.3); RBC Red Blood Cell Count 3.06 M/uL (3.86-4.86)
[2021-12-09 07:11] LABS: BUN Blood Urea Nitrogen 76 mg/dL (7-18); Bicarbonate 24 mmol/L (21-32); Ferritin 826.9 ng/mL (8-388); Glucose Level 287 mg/dL (74-106); NT PRO-BNP 71194 pg/mL (<125); Phosphorus 2.6 mg/dL (2.5-4.9); Sodium Level 134 mmol/L (136-145)
[2021-12-09 07:12] LABS: Potassium 4.1 mmol/L (3.5-5.1)
[2021-12-09 07:13] LABS: C-Reactive Protein < 2.90 mg/L (<3.00); Magnesium 2.9 mg/dL (1.8-2.4)
[2021-12-09] MEDS: DULERA 200/5 (MOMETASONE/FORMOTEROL) INHALER IH SCH (08:40)
[2021-12-09] MEDS: GABAPENTIN 300 MG CAP PO SCH (08:41)
[2021-12-09] MEDS: AMLODIPINE 10 MG TAB PO SCH (08:41)
[2021-12-09] MEDS: THIAMINE HCL 100 MG TABLET PO SCH (08:41)
[2021-12-09] MEDS: CALCIUM ACETATE 667 MG TAB PO SCH ×3 (08:41→16:33)
[2021-12-09] MEDS: VITAMIN D 5,000 UNIT CAP PO SCH (08:41)
[2021-12-09] MEDS: ZINC SULFATE 220 MG CAP PO SCH (08:41)
[2021-12-09] MEDS: FAMOTIDINE 20 MG TAB PO SCH (08:41)
[2021-12-09] MEDS: HYDRALAZINE HCL 25 MG TABLET PO SCH ×2 (08:41→14:00)
[2021-12-09] MEDS: CALCITROL 0.25 MCG CAP PO SCH (08:41)
[2021-12-09] MEDS: ASCORBIC ACID 500 MG TABLET PO SCH (08:41)
[2021-12-09] MEDS: METHYLPREDNISOLONE 40 MG INJ IV SCH ×2 (08:42→08:55)
[2021-12-09] MEDS: NICOTINE 21 MG/PAT TD SCH (08:42)
[2021-12-09] MEDS: NEPRO SHAKE 237 ML CAN PO SCH ×2 (08:42→14:00)
[2021-12-09] MEDS: HEPARIN 5000 UNIT/ML 1 ML VIAL SQ SCH (08:43)
[2021-12-09 10:05] VITALS: O2SAT 97
[2021-12-09] MEDS: HYDRALAZINE HCL 20 MG/ML VIAL IV PRN (16:33)
[2021-12-09 16:35] VITALS: BP 195/76; TEMP 97.9
[2021-12-09] MEDS ORDERED: cloNIDine HCL 0.1 MG TAB PO ONE (18:00)
--- NOTE | 2021-12-09 20:21 | P.PN ---
Date of Service: 12/09/21 Vital Signs Temp Pulse Resp BP Pulse Ox 97.9 F 66 16 195/76 H 98 12/09/21 16:00 12/09/21 16:00 12/09/21 16:00 12/09/21 16:00 12/09/21 16:00 Assessment/ Plan: Nephrology No dyspnea No chest pain Feeling better No acute events overnight Vitals, medications, blood work and imaging reviewed in the chart NAD. NCAT. MMM. Neck supple. Normal respiratory effort. RRR. ND Abd. No C/C/E. No rash. AAO. Normal speech. A/P Continue the current POC and Medications other than the changes listed below. AM labs as ordered. Daily weight. ESRD -HD TIW -Seen and examined on HD today HTN with CKD/ CHF -Continue Amlodipine Diastolic CHF, chronic -HD with UF Moderate malnlutrition -Continue Nepro Anemia in CKD -Continue Procrit CKD MBD -Continue Phoslo -Continue Vitamin D Acute COVID-19 -Continue steroids
== END 2021-12-09 17:30 | disposition home or self-care (01) | DRG 177 ==
LOC: ER 10:32 → ERHOLD 12:52 → 4TH 14:02 → OBSVTOIN 12-06 07:36
PROVIDERS: ADMIT Family Medicine; ATTEND Hospitalist
PROC: 5A1D70Z Performance of Urinary Filtration, Intermittent, Less than 6 Hours Per Day (ICD-10-PCS; principal; 2021-12-05)
DX: U07.1 COVID-19 (principal); J12.82 Pneumonia due to coronavirus disease 2019; N18.6 End stage renal disease; I50.33 Acute on chronic diastolic (congestive) heart failure; I13.2 Hypertensive heart and chronic kidney disease with heart failure and with stage 5 chronic kidney disease, or end stage renal disease; D61.818 Other pancytopenia; E44.0 Moderate protein-calorie malnutrition; F17.210 Nicotine dependence, cigarettes, uncomplicated; D63.8 Anemia in other chronic diseases classified elsewhere; A08.4 Viral intestinal infection, unspecified; M89.9 Disorder of bone, unspecified; D63.1 Anemia in chronic kidney disease; F19.10 Other psychoactive substance abuse, uncomplicated; E87.6 Hypokalemia; K21.9 Gastro-esophageal reflux disease without esophagitis; G89.29 Other chronic pain; Z99.2 Dependence on renal dialysis; Z88.0 Allergy status to penicillin; Z79.899 Other long term (current) drug therapy; Z68.26 Body mass index [BMI] 26.0-26.9, adult
CPT/HCPCS: 36415; 71045; 80048; 80061; 80076; 82550; 82553; 82728; 82947; 83735; 83880; 84100; 84132; 84145; 84443; 84484; 85025; 85610; 86140; 87040; 87077; 87186; 87205; 90935; 93005; 94640; 96365; 97116; 97161; 97530; 99284; G0378; J0360; J0456; J1644; J2920; J7605; J7606; Q5105; U0003

== ENCOUNTER 2022-01-08 13:48 | Inpatient (IN) | payer OTHER ==
--- OUTSIDE RECORDS SUMMARY | 2022-01-08 13:50 | XMS REPORT | Continuity of Care Document ---
:1960 Author Organization [facility] t Address [address] [place] [address] Care Team Providers Name Role Phone Andreea Choudhury Primary Care Physician Darcy RIVAS.Bishnu Attending Clinician Unavailable Evelyn COOK, K.H. Attending Clinician MINGO Attending Clinician Unavailable Andreea Choudhury MD Attending Clinician Mingo COOK Attending Clinician SYSTEM, NOT IN Attending Clinician Unavailable Payers Payer Name Policy Type Policy Number Effective Date Expiration Date [facility] [id number] 2011 MEDICAID 00:00:00 MEDICAID MOLINA [id number] 2018 00:00:00 Problems Condition Condition Condition Status Onset Resolution Last Treating Co mments Source Name Details Category Date Date Treatment Clinician Date Asymptomat Asymptomat Disease Active 2020- U nivers ic ic 08-20 ity of hypertensi [place]ens[place] ve [place] ve urgency 00 Me dical Branch Need for Need for Disease Active 2020- Unive rs 23-polyval 23-polyval 08-20 it y of ent ent 00:00: [place] pneumococc pneumococc 00 Me dical al al Branch polysaccha polysaccha ride ride vaccine vaccine Need for Need for Disease Active 2019- Unive rs influenza influenza 08-20 ity of vaccinatio vaccinatio [place] n 00 Medical Branch Bronchitis Bronchitis Disease Active 2020-0 U nivers 9-09 ity of 00:00: [place] 00 Medical Branch Seasonal Seasonal Disease Active 2020-0 Unive rs allergic allergic 6-04 ity of rhinitis, rhinitis, 00:00: [place] unspecifie unspecifie 00 Me dical d trigger d trigger Bran ch Cigarette Cigarette Disease Active 2020-0 Uni vers nicotine nicotine 6-04 ity of dependence dependence [place] without without 00 Medical complicati complicati Br anch on on Hospital Hospital Disease Active 2020-0 Unive rs discharge discharge 604 ity of follow-up follow-up 00:00: [place] 00 Medical Branch Acidosis Acidosis Disease Active 2020-0 Unive rs 3- ity of 00:00: [place] 00 Medical Branch Anemia in Anemia in [...] renal 3 ity of dialysis dialysis 00:00: [place] 00 Medical Branch Gastroesop Gastroesop Disease Active 2020-0 U nivers hageal hageal 3- ity of reflux reflux 00:00: [place] disease disease 00 Medical Branch Hyperkalem Hyperkalem Disease Active 2020-0 U nivers ia ia 3- ity of 00:00: [place] 00 Medical Branch 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 3 it y of itis itis 00:00: [place] 00 Medical Branch Nephrogeno Nephrogeno Disease Active 2020-0 U nivers us us 3- ity of proteinuri proteinuri [place] a a 00 Medical Branch 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 type 2 00:00: [place] diabetes diabetes 00 Medica l mellitus mellitus Branch Renal Renal Disease Active 2020-0 Univers osteodystr osteodystr 3- it y of ophy ophy 00:00: [place] 00 Medical Branch 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 Added automatic ally from request for surgery [id number] Obesity Obesity Disease Active Univers (BMI (BMI 9-05 ity of 30-39.9) 30-39.9) 00:00: [place] 00 Medical Branch ESRD (end ESRD (end Disease Active Overview: Univers stage stage 8-21 Formattin ity of renal renal 00:00: g of this [place] disease) disease) 00 note Medica l on on might be Branch dialysis dialysis different from the original. Added automatic ally from request for surgery [id number] Elevated Elevated Disease Active Unive rs serum serum 3-17 ity of lactate lactate 00:00: [place] dehydrogen dehydrogen 00 Me dical ase [facility] Branch Essential Essential Disease Active 2015-11 Uni vers hypertensi hypertensi 0-07 it y of on on 00:00: [place] 00 Medical Branch Controlled Controlled Disease Active [...] on on 00:00: [place] exertion) exertion) 00 [facility] amy Branch Edema of Edema of Disease Active Unive rs both legs both legs 7-25 ity of 00:00: [place] 00 Medical Branch HTN HTN Disease Active Univers (hypertens (hypertens 7-18 it y of ion) ion) 00:00: [place] 00 [facility] Branch Bipolar 1 Bipolar 1 Disease Active Uni vers disorder disorder ity of [facility] Allergies, Adverse Reactions, Alerts Allergy Allergy Status Severity Reaction(s) Onset Inactive Treating Comm ents Source Name Type Date Date Clinician PENICILL Allergy Active High Hives 2018- [facility] INS 3-11 00:00: 00 Penicill Drug Active Hives, [facility]11 [facility] PENICILL Drug Active High Hives Univers INS Class 7-18 ity of 00:00: [place] 00 Medical Branch Penicill Propensi Active Hives Univer s ins ty to 7-18 ity of adverse 00:00: [place] reaction Medical s Branch Social History Social Habit Start Date Stop Date Quantity Comments Source History SDOH University o f Alcohol Frequency [facility] edical Branch History SDOH University o f Alcohol Std Drinks [place] Medical Branch History SDOH University o f Alcohol Binge [facility] Exposure to Not sure [place] of SARS-CoV-2 (event) [facility] Alcohol intake 2021-09-23 2021-09-23 Current drinker Unive rsity of 00:00:00 00:00:00 of alcohol [place] Medical (finding) Branch Alcohol Comment 2016-06-14 2016-06-14 beer during the Univ ersity of 00:00:00 00:00:00 week to sleep [facility] Cigarette 2015-01-14 2015-01-14 University of pack-years 00:00:00 00:00:00 [facility] Tobacco use and 2015-01-14 2015-01-14 Never used Universit y of exposure 00:00:00 00:00:00 [facility] Cigarettes smoked 2015-01-14 2015-01-14 Univers ity of current (pack per 00:00:00 00:00:00 [facility] ) - Reported Branch Sex Assigned At [address] [facility] - 00:00:00 00:00:00 [facility] Center Smoking Status Start Date Stop Date Source Current every day smoker 2015-01-14 00:00:00 Uni versity of [facility] Medications Ordered Filled Start Stop Current Ordering Indication Dosage Frequency Signature Comments Components Source Medication Medication Date Date Medication? Clinician (SIG) Name Name ERGSWATICIFE 2020-11 Yes Take by Un carolann ROL, 0-27 mouth. ity of VITAMIN D2, 11:10: [place] (VITAMIN D 51 Medical ORAL) Branch gabapentin 2020-11 Yes 300mg Take 300 Un carolann 300 mg 0-27 mg by ity of capsule 11:10: mouth 2 [place] 51 (two) Medical times Branch daily. ramipril 5 2020-11 Yes 5mg Take 5 mg Un carolann mg capsule 0-27 by mouth ity o f 11:10: at [place] [address] bedtime. Medical Branch tiZANidine 2020-11 Yes 4mg Take 4 mg Un carolann 4 mg 0-27 by mouth 2 ity of capsule 11:10: (two) [place] [address] times Medical daily. Branch HYDRALAZINE Yes [id number] TAKE 1 Univers 50 mg 4-08 TABLET BY ity of tablet 00:00: MOUTH [place] 00 THREE Medical TIMES Branch DAILY CARVEDILOL 2019-11 Yes [id number] TAKE 1 U nivers 25 mg 1-01 TABLET BY ity of tablet 00:00: MOUTH [place] 00 TWICE Medical DAILY WITH Branch MEALS furosemide 2019-0 Yes [id number] 40mg Take 1 Univers 40 mg 9-23 tablet by ity of tablet 00:00: mouth [place] 00 every Medical morning Branch and evening. acetaminoph 2019-0 Yes [id number] 650mg Take 1 Univers en 650 mg 9-23 tablet by ity o f CR tablet 00:00: mouth [place] 00 every 8 Medical (eight) Branch hours as needed for Pain. Diclofenac 2019-0 Yes [id number] Apply to Univers Sodium 9-23 area(s) 3 ity of (VOLTAREN) 00:00: (three) [place] 1 % gel 00 times Medical daily. Branch Apply two grams to affected areas three times daily traMADoL 50 2019-0 Yes [id number] 50mg Take 1 Univ ers mg tablet 9-23 tablet by ity o f 00:00: mouth [place] 00 every 8 Medical (eight) Branch hours as needed for Pain (scale 4-6). Indication s: chronic pain, chronic right knee pain (cannot take NSAID due to CKD) albuterol 2019-0 Yes [id number] 2{puff} Inhale 2 Univers (VENTOLIN 9-09 Puffs ity of HFA) 90 00:00: every 6 [place] mcg/actuati 00 (six) Medical on inhaler hours as Branc h needed for Wheezing or Shortness of Breath. potassium 2019- Yes [id number] 10meq Take 1 Univers chloride 10 08-06 tablet by ity of mEq CR 00:00: mouth [place] tablet 00 every Medical Tuesday, Branch and Tuesday in the evening. methylPREDN 2020- No [id number] Take by Univers ISolone 08-06 mouth ity of (MEDROL, 00:00: 00:00 SEE-INSTRU [place] NIRANJAN,) 4 mg 00 :00 CTIONS. Medica l tablets follow [place] package directions nicotine 14 2020- No [id number] 1{patch Apply 1 Univers mg/24 hr 08-06 } Patch to ity of patch 00:00: 00:00 area(s) [place] 00 :00 every 24 Medical (-fo Branch ur) hours. Apply 21mg patch daily x 6 weeks, then apply 14mg patch daily x 2 weeks, then apply 7 mg patch daily 2 weeks, stop smoking on initiation of therapy. nicotine 21 2020- No [id number] 1{patch Apply 1 Univers mg/24 hr 08-06 } Patch to ity of patch 00:00: 00:00 area(s) [place] 00 :00 every 24 Medical (- Branch ur) hours. Apply 21mg patch daily x 6 weeks, then apply 14mg patch daily x 2 weeks, then apply 7 mg patch daily 2 weeks, stop smoking on initiation of therapy. nicotine 7 2020- No [id number] 1{patch Apply 1 Univers mg/24 hr 08-06 } Patch to ity of patch 00:00: 00:00 area(s) [place] 00 :00 every 24 Medical (twenty-fo Branch ur) hours. Apply 21mg patch daily x 6 weeks, then apply 14mg patch daily x 2 weeks, then apply 7 mg patch daily 2 weeks, stop smoking on initiation of therapy. doxycycline 2020- No [id number] 100mg Take 1 Univers hyclate 100 08-06 tablet by it y of mg tablet 00:00: 00:00 mouth 2 [place] 00 :00 (two) Medical times Branch daily. CETIRIZINE 2019- Yes [id number] Take 1 Univers 10 mg 8-31 tablet by ity of tablet 00:00: mouth once [place] 00 daily Medical Branch AMLODIPINE Yes [id number] TAKE 1 U nivers 10 mg 9-17 TABLET BY ity of tablet 00:00: MOUTH ONCE [place] 00 DAILY Medical Branch cholecalcif Yes 1000U QD Take 1,[address] [facility] 3-13 Units by [facility] - (VITAMIN 11:30: mouth Medical D3) 1,000 30 daily. Center unit tablet furosemide Yes 40mg Q.5D Take [address] (LASIX) 40 3-13 by mouth 2 [place] es - MG tablet 11:30: (two) Medical 30 times Center daily. amLODIPine Yes 10mg QD Take [address] (NORVASC) 3-13 by mouth [facility] - 10 MG 11:30: daily. Medical tablet 30 Center carvedilol Yes 25mg Take [address] (COREG) 25 3-13 by mouth 2 [place] es - MG tablet 11:30: (two) Medical 30 times Center daily with breakfast and dinner. cholecalcif Yes 1000U QD Take 1,[address] [facility] [facility]ob 3-13 Units by [facility] - (VITAMIN 11:30: mouth Medical D3) 1,000 30 daily. Center unit tablet furosemide Yes 40mg Q.5D Take [address] (LASIX) 40 3-13 by mouth 2 [place] es - MG tablet 11:30: (two) Medical 30 times Center daily. amLODIPine Yes 10mg QD Take [address] (NORVASC) 3-13 by mouth [facility] - 10 MG 11:30: daily. Medical tablet 30 [place] carvedilol Yes 25mg Take [address] (COREG) 25 3-13 by mouth 2 [place] es - MG tablet 11:30: (two) Medical 30 times Center daily with breakfast and dinner. lancets 2020- No Once daily Uni vers (FREESTYLE 07-02 for DM II ity of LANCETS) 28 00:00: 00:00 [place] gauge Misc 00 :00 Medical Branch blood sugar 2020- No Test blood Univers diagnostic 07-02 sugars ity of (FREESTYLE 00:00: 00:00 daily for [place] INSULINX 00 :00 diabetes, Medica l TEST Please Branch STRIPS) give strip patient any brand of testing supplies she wants Blood-Gluco 2020- No [id number] Use as Univers se Meter 07-16 directed. ity o f (FREESTYLE 00:00: 00:00 Brand per [place] SYSTEM KIT) 00 :00 patient. Medi amy Kit Branch Immunizations Ordered Filled Immunization Date Status Comments Sourc e Immunization Name Name Pneumococcal 2020-08-20 Completed University o f Polysaccharide, 00:00:00 [place] Med ical PPSV23 (PNEUMOVAX) Branch Influenza Virus 2020-08-20 Completed Universit y of Vaccine Quad .5 mL 00:00:00 [facility] IM 6+ MO Branch Influenza Virus 2018-09-04 Completed Universit y of Vaccine Quad ID 00:00:00 [place] Med ical 18-64 YRS Branch Pneumococcal 2017-02-15 Completed University o f Polysaccharide, 00:00:00 [place] Med ical PPSV23 (PNEUMOVAX) Branch Vital Signs Vital Name Observation Time Observation Value Comments Source Systolic blood 2021-09-23 16:18:00 203 mm[Hg] [facility] Diastolic blood 2021-09-23 16:18:00 107 mm[Hg] [facility] 2021-09-23 16:18:00 73 /min [facility] Respiratory rate 2021-09-23 16:14:00 22 /min [facility] Body weight 2021-09-23 16:14:00 70.943 kg [facility] BMI 2021-09-23 16:14:00 26.85 kg/m2 [facility] Oxygen saturation in 2021-09-23 16:14:00 96 /min [facility] Arterial blood by [facility] Pulse oximetry Branch Procedures This patient has no known procedures. Encounters Start End Encounter Admission Attending Care Care Encounter Source Date/Time Date/Time Type Type Clinicians Facility Department ID 2021-11-30 2021-11-30 Outpatient Elli RIVAS [facility] [id number] Univers 11:30:00 11:30:00 SENDIL [id number] ity [facility] 2021-11-30 2021-11-30 Outpatient R EVELYN [facility] [id number] Univers 11:30:00 11:30:00 SENDIL [facility] 2021-09-23 2021-09-23 [facility] [id number] Univers 11:01:20 11:32:01 Visit Sendil DarcyMichaelJose MartinMichael [id number] [id number] Livanandreea ngo PROFESSIO [id number] Ne dical NAL 059 [facility] 2021-09-23 2021-09-23 Outpatient R EVELYN [facility] [id number] Univers 11:00:00 11:00:00 SENDIL [id number] [facility] 2021-09-23 2021-09-23 Outpatient R EVELYN [facility] [id number] Univers 11:00:00 11:00:00 SENDIL [facility] 2021-09-02 2021-09-02 Outpatient R EVELYN [facility] [id number] Univers 13:00:00 13:00:00 SENDIL [id number] [facility] 2021-09-02 2021-09-02 Outpatient R EVELYN [facility] [id number] Univers 13:00:00 13:00:00 SENDIL [facility] 2021-08-12 2021-08-12 Outpatient R EVELYN [facility] [id number] Univers 11:00:00 11:00:00 SENDIL [id number] [facility] 2021-08-12 2021-08-12 Outpatient R EVELYN [facility] [id number] Univers 11:00:00 11:00:00 SENDIL [facility] 2021-07-29 2021-07-29 Outpatient R EVELYN [facility] [id number] Univers 11:00:00 11:00:00 SENDIL [id number] [facility] 2021-07-29 2021-07-29 Outpatient R VEELYN [facility] [id number] Univers 11:00:00 11:00:00 SENDIL [facility] 2020-11-19 2020-11-19 Outpatient R MINGO [facility] [id number] Univers 10:40:00 10:40:00 [place] [id number] [facility] 2020-11-19 2020-11-19 Outpatient R MINGO [facility] [id number] Univers 10:40:00 10:40:00 [place] [facility] 2020-09-23 2020-09-23 [facility] [id number] 00:00:00 00:00:00 Bianca Tony [id number] [place] [id number] Professio [id number] nal 231 [facility] 2020-08-20 2020-08-20 Office [facility] [id number] 13:42:32 15:04:00 [place] [id number] [place] [id number] Professio [id number] nal 044 [facility] 2020-08-20 2020-08-20 Outpatient R MINGO, [facility] [id number] Univers 13:40:00 13:40:00 [place] [id number] [facility] 2020-08-20 2020-08-20 Outpatient R MINGO [facility] [id number] Univers 13:40:00 13:40:00 [place] [facility] 2020-08-06 2020-08-06 Outpatient R MINGO [facility] [id number] Univers 13:40:00 13:40:00 [place] [facility] 2020-08-06 2020-08-06 Outpatient R MINGO [facility] [id number] Univers 13:00:00 13:00:00 [facility] [facility] 2020-08-01 Outpatient R MINGO [facility] [id number] Univers 09:00:00 09:00:00 [place] [facility] 2020-07-24 2020-07-24 Outpatient R RIVAS, [facility] [id number] Univers 11:00:00 11:00:00 YOKO [facility] 2019-02-08 2019-02-08 Outpatient EL [facility], [facility] [id number] [facility] 00:00:00 00:00:00 PROVIDER Results Test Description Test Time Test Comments Results Result Comments Source SARS-COV2/RT-PCR ([facility]) 2020-06-12 13:15:00 Test Item Value Reference Range Interpretation Comme nts SARS-COV2/RT-PCR (test code = [id number]) Negative Not Detected, N egative SARS-COV-2 PERFORMING LAB (test code = [id number]) [facility] Negative result for this test determines that [...] 564(g) of the Act.Fact Sheet for Healthcare Providers:https://www.Wattblock.Tendr/sites/default/files/product/documents/Fact_Shee c_XI_Lawfsyqby_Ooxk_WEOG-JaA-0.pdfFact Sheet for Healthcare Patients:https://www.Wattblock.Tendr/sites/default/files/product/ documents/Qlru_Ygknp_Biqsefeu_Bvxb_WIVQ-WoQ-2.pdfPerforming Laboratory:[facility], [place] [address]YWF, CV ACCESS, [id number] 17:37:00FINAL REPORT History: Renal failure, need for [...] [place] Verified Date/Time: 02/07/2019 17:37:01 Reading Location: [place] [address] Angio Body Reading Room
[2022-01-08 14:57] LABS: Absolute Lymphocytes (CBC) 0.8 K/uL (0.7-4.9); Hematocrit 27.8 % (36.0-45.0); Lymphocytes % 9.9 % (15.3-44.8); MPV 8.5 fL (7.6-11.3); RBC Red Blood Cell Count 2.86 M/uL (3.86-4.86)
[2022-01-08 15:04] LABS: Protime INR 1.15
--- NOTE | 2022-01-08 15:14 | RAD REPORT ---
EXAM DESCRIPTION: RAD - Chest Single View - 01/08/2022 2:58 pm CLINICAL HISTORY: COUGH COMPARISON: Portable 12/07/2021 TECHNIQUE: AP portable chest image was obtained 01/08/2022 2:58 pm . FINDINGS: Lung volumes are low. Interstitial and alveolar opacities are scattered in the lung linton . Cardiomegaly and vascular engorgement are present. Double-lumen dialysis catheter in place on the r ight. No measurable pleural effusion and no pneumothorax. No acute bony abnormality seen. No acute ao rtic findings suspected. IMPRESSION: Mild CHF/volume overload pattern.
[2022-01-08 15:41] LABS: Albumin 2.8 g/dL (3.4-5.0); Bilirubin Direct 0.6 mg/dL (0-0.2); Magnesium 2.1 mg/dL (1.8-2.4); Potassium 3.1 mmol/L (3.5-5.1); Protein, Total 7.2 g/dL (6.4-8.2)
[2022-01-08 15:53] LABS: Troponin High Sensitivity 5974.7 pg/mL (<58.9)
--- NOTE | 2022-01-08 17:19 | RAD REPORT ---
EXAM DESCRIPTION: RAD - Pelvis - 01/08/2022 4:50 pm CLINICAL HISTORY: TRAUMA COMPARISON: No comparisons TECHNIQUE: AP imaging of the pelvis was obtained. FINDINGS: No fracture of the bony pelvis identifiable. SI joints and pubic symphysis within normal l imits. No pathologic or destructive bone process seen. Hip joints and proximal femoral within range n ormal as well. Patient has dense arterial tree calcifications. Wiring from cardiac leads overlies the pelvis and lef t hip joint somewhat limiting detail. No suspicious soft tissue finding. IMPRESSION: No acute pelvic finding.
--- NOTE | 2022-01-08 17:20 | RAD REPORT ---
EXAM DESCRIPTION: RAD - Knee Left 3 View - 01/08/2022 4:51 pm CLINICAL HISTORY: PAIN COMPARISON: No comparisons FINDINGS: No fracture, dislocation or periosteal reaction.No joint effusion seen. No joint space lynda rowing. Minimal spurring along the articular margins of the patella. Dense arterial tree calcifications are present. No suspicious soft tissue finding. IMPRESSION: Negative left knee for acute bone or joint finding. Minimal knee joint degenerative change. Clinical concerns for internal derangement or occult bony injury could be further assessed with MR im aging.
--- NOTE | 2022-01-08 17:22 | RAD REPORT ---
EXAM DESCRIPTION: RAD - Knee Right 3 View - 01/08/2022 4:51 pm CLINICAL HISTORY: PAIN COMPARISON: Knee Right 3 View dated 10/23/2013 FINDINGS: No fracture, dislocation or periosteal reaction.Small joint effusion is present. Moderate- sized spurs present along the articular margins of the patella. Medial and lateral compartment margin al spurs are present. No significant joint space narrowing. Dense arterial tree calcifications are pr esent. No suspicious soft tissue finding. IMPRESSION: Right knee joint degenerative changes are present more prominent than seen in the left k nee. Minimal joint effusion. Clinical concerns for internal derangement or occult bony injury could be further assessed with MR im aging.
--- NOTE | 2022-01-08 17:27 | ER ---
Nurse's Notes [facility] Name: Dennise Harris Age: 61 yrs Sex: Female : 1960 Arrival Date: 01/08/2022 Time: 13:50 Bed 14 Private MD: Diagnosis: Weakness;Non ST elevation CO;End stage renal disease-on HD;Unspecified combined systolic (congestive) and diastolic (congestive) heart failure;Coronavirus infection, unspecified Presentation: 01/08 13:55 Chief complaint: Patient states: weakness, dizzy. pt went to dialysis yesterday and has harris been weak. Coronavirus screen: Vaccine status: Patient reports receiving the 2nd dose of the covid vaccine. Ebola Screen: Patient denies travel to an Ebola-affected area in the 21 days before illness onset. Initial Sepsis Screen: Does the patient meet any 2 criteria? No. Patient's initial sepsis screen is negative. Does the patient have a suspected source of infection? No. Patient's initial sepsis screen is negative. Risk Assessment: Do you want to hurt yourself or someone else? Patient reports no desire to harm self or others. Onset of symptoms was January 08, 2022. 13:55 Method Of Arrival: EMS: [facility] 13:55 Acuity: FAWAD 3 harris Triage Assessment: 13:57 General: Appears in no apparent distress. Behavior is calm. Pain: Denies pain. harris Historical: - Allergies: 13:57 PENICILLINS; harris - Home Meds: 13:57 carvedilol 25 mg Oral tab 1 tab 2 times per day [Active]; dorzolamide-timolol 22.3-6.8 harris mg/mL ophthalmic drop 1 drop 2 times per day [Active]; gabapentin 300 mg Oral cap [Active]; hydralazine 50 mg Oral tab 1 tab 2 times per day [Active]; ramipril 10 mg Oral cap 1 cap once daily [Active]; tizanidine 4 mg Oral cap [Active]; tramadol 50 mg Oral tab [Active]; - PMHx: 13:57 CHF; ESRD; HD - Tue//Tue; Hypertension; harris - Immunization history:: Adult Immunizations up to date. - Social history:: Smoking status: Patient denies any tobacco usage or history of. - Family history:: not pertinent. Screenin:58 Abuse screen: Denies threats or abuse. Denies injuries from another. Nutritional harris screening: No deficits noted. Tuberculosis screening: No symptoms or risk factors identified. Fall Risk None identified. Assessment: 15:02 General: Appears in no apparent distress. Behavior is drowsy. Pain: Denies pain. harris Cardiovascular: Reports fatigue, shortness of breath. Respiratory: Airway is patent Breath sounds with crackles Breath sounds are diminished Parent/caregiver reports the patient having shortness of breath cough that is. 19:30 General: Appears in no apparent distress. Pain: Denies pain. Neuro: Level of mk Consciousness is awake, obeys commands, confused, Oriented to person, place, Shoe Designer are equal bilaterally Moves all extremities. Gait is unsteady, Speech is normal, Facial symmetry appears normal. Cardiovascular: Heart tones S1 S2 present Capillary refill < 3 seconds in bilateral fingers toes Clubbing of nail beds is absent JVD is absent Patient's skin is warm and dry. Pulses are 3+ in right radial artery, right dorsalis pedis artery, left radial artery and left dorsalis pedis artery Rhythm is sinus rhythm. Respiratory: Airway is patent Trachea midline Respiratory effort is even, unlabored, Respiratory pattern is regular, symmetrical, Breath sounds are diminished in left posterior lower lobe and right posterior lower lobe. GI: Abdomen is flat, non-distended. : No signs and/or symptoms were reported regarding the genitourinary system. Derm: Skin is intact, is healthy with good turgor, Skin temperature is warm. Musculoskeletal: Circulation, motion, and sensation intact. Capillary refill < 3 seconds, in bilateral fingers. toes. Range of motion: intact in all extremities. 20:30 Reassessment: Patient and/or family updated on plan of care and expected duration. Pain mk level reassessed. pt remains somnolent, discussed w/ hospitalist, hospitalist believes it would best to keep in the ER for now. 21:30 Reassessment: No changes from previously documented assessment. Patient and/or family mk updated on plan of care and expected duration. Pain level reassessed. 22:14 Reassessment: No changes from previously documented assessment. Patient and/or family mk updated on plan of care and expected duration. Pain level reassessed. RN discussed w/ hospitalist regarding the pt still being somnolent despite good ABG, hospitalist would liek to see the pt one more time. 23:30 Reassessment: No changes from previously documented assessment. Patient and/or family mk updated on plan of care and expected duration. Pain level reassessed. spoke to hospitalist who approved for pt to go to floor s/p ronny and nel. Vital Signs: 13:55 BP 129 / 58; Pulse 68; Resp 14; Temp 98.3; Pulse Ox 97% on 2 lpm NC; Weight 56.7 kg; harris Height 5 ft. 5 in. (165.10 cm); 16:53 BP 171 / 85; Pulse 74; Resp 16; Pulse Ox 100% ; harris 19:20 BP 125 / 83; Pulse 70; Resp 21; Pulse Ox 93% on 1 lpm NC; mk 20:20 BP 139 / 97; Pulse 76; Resp 21; Pulse Ox 97% on 4 lpm NC; mk 21:20 BP 155 / 60; Pulse 74; Resp 22; Pulse Ox 98% on 4 lpm NC; mk 22:20 BP 162 / 83; Pulse 80; Resp 19; Pulse Ox 98% on 4 lpm NC; mk 23:20 BP 130 / 93; Pulse 80; Resp 20; Pulse Ox 98% on 4 lpm NC; mk 13:55 Body Mass Index 20.80 (56.70 kg, 165.10 cm) harris Valentine Coma Score: 19:20 Eye Response: to voice(3). Verbal Response: confused(4). Motor Response: obeys mk commands(6). Total: 13. 20:20 Eye Response: to voice(3). Verbal Response: confused(4). Motor Response: obeys mk commands(6). Total: 13. 21:20 Eye Response: to voice(3). Verbal Response: confused(4). Motor Response: obeys mk commands(6). Total: 13. 22:20 Eye Response: to voice(3). Verbal Response: confused(4). Motor Response: obeys mk commands(6). Total: 13. 23:20 Eye Response: to voice(3). Verbal Response: confused(4). Motor Response: obeys mk commands(6). Total: 13. ED Course: 13:50 Patient arrived in ED. eb 13:57 Triage completed. harris 13:57 Arm band placed on. harris 13:58 Patient has correct armband on for positive identification. Bed in low position. harris 13:58 No provider procedures requiring assistance completed. harris 14:05 EKG done, by ED staff. tp1 14:25 Andrew Rojo MD is Attending Physician. dionne 14:53 SARS-COV-2 RT PCR (Document "Date of Onset" if Symptomatic) Sent. harris 14:53 Lipase Sent. harris 14:53 Basic Metabolic Panel Sent. harris 14:53 CBC with Automated Diff Sent. harris 14:53 Liver (Hepatic) Function Sent. harris 14:53 Basic Metabolic Panel Sent. harris 14:53 CBC with Diff Sent. harris 14:53 LFT's Sent. harris 14:53 XRAY Chest (1 view) Sent. harris 14:53 Magnesium Sent. harris 14:53 NT PRO-BNP Sent. harris 14:53 PT-INR Sent. harris 14:53 Troponin HS Sent. harris 14:58 XRAY Chest (1 view) In Process Unspecified. EDMS 15:02 Jessie Collado, RN is Primary Nurse. harris 15:02 Inserted saline lock: 20 gauge in left antecubital area, using aseptic technique. harris 16:51 Pelvis XRAY In Process Unspecified. EDMS 16:51 Knee Left 3 View XRAY In Process Unspecified. EDMS 16:51 Knee Right 3 View XRAY In Process Unspecified. EDMS 17:24 Ousmane Hameed MD is Hospitalizing Provider. dionne 17:32 CT Traumagram (Head C Spine CAP wo con) In Process Unspecified. EDMS 19:08 Primary Nurse role handed off by Jessie Collado, YESSI cs9 19:10 shelter monitor on. Pulse ox on. NIBP on. 19:16 Vangie Capps, RN is Primary Nurse. 21:09 Awaiting: ABG prior to taking to floor. 23:00 Inserted saline lock: 22 gauge in left wrist, using aseptic technique. 01/09 00:05 Patient admitted, IV remains in place. Administered Medications: 01/08 19:03 Drug: Lopressor (metoprolol TARTRATE)) 25 mg Route: PO; harris 19:07 Follow up: Response: No adverse reaction harris 19:05 Drug: Heparin (CO Drip) 12 units/kg/hr - (HEParin 30523 units, D5W 500 ml) harris {Co-Signature: sf1 (Kaykay Thomson RN).} Route: IV; Rate: calculated rate; Site: left antecubital; 01/09 00:15 Follow up: Response: No adverse reaction; Rate change 880 units/hr; IV Status: Infusion mk continued 01/08 19:05 Drug: Aspirin 81 mg Route: PO; harris 19:07 Follow up: Response: No adverse reaction harris 19:06 Drug: Heparin (CO-Bolus No thrombolytic) - HEParin 60 units/kg {Co-Signature: sf1 harris (Kaykay Thomson RN).} Route: IVP; Site: left antecubital; 19:07 Follow up: Response: No adverse reaction harris 19:08 Drug: ProTONIX (pantoprazole) 40 mg Route: IVP; Site: left antecubital; harris 21:56 Drug: Potassium Chloride 10 mEq Route: PO; Outcome: 17:26 Decision to Hospitalize by Provider. [facility] 01/09 00:05 Admitted to Tele accompanied by nurse, accompanied by tech, via stretcher, Report mk called to Leopoldo DICKSON Condition: stable Instructed on the need for admit. 00:36 Patient left the ED. mk Signatures: Dispatcher [employer] EDAndrew Hussein MD MD cha Botello, Elizabeth eb Stanford, Christine cs9 Virginia Hansen tp1 Ira-StagerJessie RN Vangie Cardozo RN RN mk Samantha Fillers RN sf1 Corrections: (The following items were deleted from the chart) 01/08 20:28 19:30 Neuro: Level of Consciousness is awake, alert, obeys commands, Oriented to person, place, time, situation, Shoe Designer are equal bilaterally Moves all extremities. Gait is unsteady, Speech is normal, Facial symmetry appears normal, 22:16 20:30 Reassessment: No changes from previously documented assessment. Patient and/or mk family updated on plan of care and expected duration. Pain level reassessed. pt remains somnolent, discussed w/ hospitalist, hospitalist believes it would best to keep in the ER. mk
--- NOTE | 2022-01-08 17:27 | EDPHYS ---
Physician Documentation [facility] Name: Dennise Harris Age: 61 yrs Sex: Female : 1960 Arrival Date: 01/08/2022 Time: 13:50 Bed 14 Private MD: ED Physician Andrew Rojo HPI: 01/08 16:35 This 61 yrs old Black Female presents to ER via EMS with complaints of weak , dizzy dionne since yesterday, bilatweral leg pain. 16:35 Trauma demographics: County: The injury occurred in [place]. Mechanism of injury: dionne Fall: and struck a carpeted surface. Associated injuries: The patient sustained no obvious injury. Onset: The symptoms/episode began/occurred 1 day(s) ago. weak since dialysis , , , tue, bilateral leg pain. The patient presents with dizziness, generalized weakness. Context: occurred at home. Modifying factors: The symptoms are alleviated by nothing, the symptoms are aggravated by nothing. Severity of symptoms: At their worst the symptoms were moderate in the emergency department the symptoms are unchanged. Historical: - Allergies: 13:57 PENICILLINS; harris - Home Meds: 13:57 carvedilol 25 mg Oral tab 1 tab 2 times per day [Active]; dorzolamide-timolol 22.3-6.8 harris mg/mL ophthalmic drop 1 drop 2 times per day [Active]; gabapentin 300 mg Oral cap [Active]; hydralazine 50 mg Oral tab 1 tab 2 times per day [Active]; ramipril 10 mg Oral cap 1 cap once daily [Active]; tizanidine 4 mg Oral cap [Active]; tramadol 50 mg Oral tab [Active]; - PMHx: 13:57 CHF; ESRD; HD - Tue//Tue; Hypertension; harris - Immunization history:: Adult Immunizations up to date. - Social history:: Smoking status: Patient denies any tobacco usage or history of. - Family history:: not pertinent. ROS: 16:35 Constitutional: Negative for fever, chills, and weight loss, Eyes: Negative for injury, dionne pain, redness, and discharge, ENT: Negative for injury, pain, and discharge, Neck: Negative for injury, pain, and swelling, Cardiovascular: Negative for chest pain, palpitations, and edema, Respiratory: Negative for shortness of breath, cough, wheezing, and pleuritic chest pain, Back: Negative for injury and pain, : Negative for injury, bleeding, discharge, and swelling, Skin: Negative for injury, rash, and discoloration, Psych: Negative for depression, anxiety, suicide ideation, homicidal ideation, and hallucinations, Allergy/Immunology: Negative for hives, rash, and allergies, Endocrine: Negative for neck swelling, polydipsia, polyuria, polyphagia, and marked weight changes, Hematologic/Lymphatic: Negative for swollen nodes, abnormal bleeding, and unusual bruising. 16:35 Abdomen/GI: Positive for diarrhea. 16:35 MS/extremity: Positive for decreased range of motion, pain, tenderness, of the right leg and left leg. 16:35 Neuro: Positive for dizziness, weakness. Exam: 16:35 Constitutional: This is a well developed, well nourished patient who is awake, alert, dionne and in no acute distress. Head/Face: Normocephalic, atraumatic. Eyes: Pupils equal round and reactive to light, extra-ocular motions intact. Lids and lashes normal. Conjunctiva and sclera are non-icteric and not injected. Cornea within normal limits. Periorbital areas with no swelling, redness, or edema. ENT: Nares patent. No nasal discharge, no septal abnormalities noted. Tympanic membranes are normal and external auditory canals are clear. Oropharynx with no redness, swelling, or masses, exudates, or evidence of obstruction, uvula midline. Mucous membranes moist. Neck: Trachea midline, no thyromegaly or masses palpated, and no cervical lymphadenopathy. Supple, full range of motion without nuchal rigidity, or vertebral point tenderness. No Meningismus. Chest/axilla: Normal chest wall appearance and motion. Nontender with no deformity. No lesions are appreciated. Cardiovascular: Regular rate and rhythm with a normal S1 and S2. No gallops, murmurs, or rubs. Normal PMI, no JVD. No pulse deficits. Abdomen/GI: Soft, non-tender, with normal bowel sounds. No distension or tympany. No guarding or rebound. No evidence of tenderness throughout. Back: No spinal tenderness. No costovertebral tenderness. Full range of motion. Female : Normal external genitalia. Skin: Warm, dry with normal turgor. Normal color with no rashes, no lesions, and no evidence of cellulitis. Psych: Awake, alert, with orientation to person, place and time. Behavior, mood, and affect are within normal limits. 16:35 Cardiovascular: Rate: normal, Rhythm: regular, Pulses: Pulses are 4+ in bilateral radial, brachial, femoral, popliteal, posterior tibial and and dorsalis pedis arteries.. Heart sounds: normal, Edema: is not appreciated, JVD: is noted bilaterally, to 3 cm. 16:35 ECG was reviewed by the Attending Physician. 16:35 Respiratory: the patient does not display signs of respiratory distress, Respirations: normal, no acute changes, is not noted, Breath sounds: rales, that are mild, are located in both bases, Respiratory rate: sob , per patient no fluid removed yesterday 17:07 Abdomen/GI: Inspection: abdomen appears normal, Bowel sounds: normal, Palpation: dionne nontender, Rectal exam: is unremarkable, rectal tone normal, Stool: guaiac negative, hemorrhoid(s), are not appreciated, mass, is not appreciated, swelling, is not appreciated, tenderness, that is mild, fecal impaction, is not appreciated, the exam is chaperoned by the nurse. 17:27 ECG was reviewed by the Attending Physician. [facility] Vital Signs: 13:55 BP 129 / 58; Pulse 68; Resp 14; Temp 98.3; Pulse Ox 97% on 2 lpm NC; Weight 56.7 kg; harris Height 5 ft. 5 in. (165.10 cm); 16:53 BP 171 / 85; Pulse 74; Resp 16; Pulse Ox 100% ; harris 19:20 BP 125 / 83; Pulse 70; Resp 21; Pulse Ox 93% on 1 lpm NC; mk 20:20 BP 139 / 97; Pulse 76; Resp 21; Pulse Ox 97% on 4 lpm NC; mk 21:20 BP 155 / 60; Pulse 74; Resp 22; Pulse Ox 98% on 4 lpm NC; mk 22:20 BP 162 / 83; Pulse 80; Resp 19; Pulse Ox 98% on 4 lpm NC; mk 23:20 BP 130 / 93; Pulse 80; Resp 20; Pulse Ox 98% on 4 lpm NC; mk 13:55 Body Mass Index 20.80 (56.70 kg, 165.10 cm) Valentine Coma Score: 19:20 Eye Response: to voice(3). Verbal Response: confused(4). Motor Response: obeys mk commands(6). Total: 13. 20:20 Eye Response: to voice(3). Verbal Response: confused(4). Motor Response: obeys mk commands(6). Total: 13. 21:20 Eye Response: to voice(3). Verbal Response: confused(4). Motor Response: obeys mk commands(6). Total: 13. 22:20 Eye Response: to voice(3). Verbal Response: confused(4). Motor Response: obeys mk commands(6). Total: 13. 23:20 Eye Response: to voice(3). Verbal Response: confused(4). Motor Response: obeys mk commands(6). Total: 13. MDM: 14:25 Patient medically screened. dionne 16:40 Differential diagnosis: closed head injury, extremity fracture. Differential Diagnosis dionne altered mental status, sepsis. Differential diagnosis: cardiac arrhythmia, CVA, generalized weakness, GI bleed, hypovolemia, idiopathic dizziness, near-syncope, sepsis. Data reviewed: vital signs, nurses notes, lab test result(s), EKG, radiologic studies, CT scan, plain films. Data interpreted: night monitor: rate is 68 beats/min, rhythm is regular, Pulse oximetry: on room air is 97 %. Test interpretation: by ED physician or midlevel provider: ECG, plain radiologic studies. Counseling: I had a detailed discussion with the patient and/or guardian regarding: the historical points, exam findings, and any diagnostic results supporting the discharge/admit diagnosis, lab results, radiology results. 01/08 14:25 Order name: Basic Metabolic Panel 01/08 14:25 Order name: CBC with Diff 01/08 14:25 Order name: LFT's 01/08 14:25 Order name: Magnesium; Complete Time: 16:31 dionne 01/08 14:25 Order name: NT PRO-BNP; Complete Time: 16:31 01/08 14:25 Order name: PT-INR; Complete Time: 16:31 01/08 14:25 Order name: Troponin HS; Complete Time: 16:31 01/08 14:25 Order name: SARS-COV-2 RT PCR (Document "Date of Onset" if Symptomatic); Complete Time: dionne 18:21 01/08 14:25 Order name: Lipase; Complete Time: 16:31 [facility] 01/08 14:25 Order name: Basic Metabolic Panel; Complete Time: 16:31 [facility] 01/08 14:25 Order name: CBC with Automated Diff; Complete Time: 16:31 [facility] 01/08 14:25 Order name: Liver (Hepatic) Function; Complete Time: 16:31 [facility] 01/08 16:42 Order name: Lactate; Complete Time: 18:57 [facility] 01/08 16:43 Order name: Blood Culture Adult (2) [facility] 01/08 14:25 Order name: XRAY Chest (1 view); Complete Time: 16:31 [facility] 01/08 16:31 Order name: Pelvis XRAY; Complete Time: 18:21 [facility] 01/08 16:31 Order name: CT Traumagram (Head C Spine CAP wo con); Complete Time: 18:21 [facility] 01/08 16:31 Order name: Knee Left 3 View XRAY; Complete Time: 18:21 [facility] 01/08 16:31 Order name: Knee Right 3 View XRAY; Complete Time: 18:21 [facility] 01/08 22:00 Order name: ABG Arterial Blood Gas EDNC 01/08 22:19 Order name: Glucose, Ancillary Testing [facility] 01/08 23:39 Order name: PTT, Activated Partial Thromb [facility] 01/08 23:53 Order name: Ammonia [facility] 01/09 00:03 Order name: Creatine Phosphokinase [facility] 01/09 00:03 Order name: Troponin High Sensitivity [facility] 01/08 14:25 Order name: EKG; Complete Time: 14:25 [facility] 01/08 14:25 Order name: Cardiac monitoring; Complete Time: 14:53 [facility] 01/08 14:25 Order name: EKG - Nurse/Tech; Complete Time: 14:28 [facility] 01/08 14:25 Order name: IV Saline Lock; Complete Time: 14:53 [facility] 01/08 14:25 Order name: Labs collected and sent; Complete Time: 14:53 [facility] 01/08 14:25 Order name: O2 Per Protocol; Complete Time: 14:53 [facility] 01/08 14:25 Order name: O2 Sat Monitoring; Complete Time: 14:53 [facility] 01/08 16:43 Order name: EKG; Complete Time: 16:43 [facility] 01/08 16:43 Order name: EKG - Nurse/Tech; Complete Time: 17:10 dionne 01/08 19:12 Order name: CONS Physician Consult EDMS EC:35 Rate is 57 beats/min. Rhythm is regular. QRS Byron is Normal. TN interval is normal. QRS dionne interval is normal. QT interval is normal. No Q waves. T waves are Inverted in leads II, III, aVF. Clinical impression: NSR w/ Non-specific ST/T Changes and No evidence of ischemia. Interpreted by me. Reviewed by me. 17:27 Rate is 74 beats/min. Rhythm is regular. QRS Byron is Normal. TN interval is normal. QRS dionne interval is normal. QT interval is normal. No Q waves. T waves are Normal. No ST changes noted. Clinical impression: NSR w/ Non-specific ST/T Changes and No evidence of ischemia. Interpreted by me. Reviewed by me. Administered Medications: 19:03 Drug: Lopressor (metoprolol TARTRATE)) 25 mg Route: PO; harris 19:07 Follow up: Response: No adverse reaction harris 19:05 Drug: Heparin (IN Drip) 12 units/kg/hr - (HEParin 64108 units, D5W 500 ml) harris {Co-Signature: sf1 (Kaykay Fillers RN).} Route: IV; Rate: calculated rate; Site: left antecubital; 01/09 00:15 Follow up: Response: No adverse reaction; Rate change 880 units/hr; IV Status: Infusion mk continued 01/08 19:05 Drug: Aspirin 81 mg Route: PO; harris 19:07 Follow up: Response: No adverse reaction harris 19:06 Drug: Heparin (IN-Bolus No thrombolytic) - HEParin 60 units/kg {Co-Signature: sf1 harris (Kaykay Fillers RN).} Route: IVP; Site: left antecubital; 19:07 Follow up: Response: No adverse reaction harris 19:08 Drug: ProTONIX (pantoprazole) 40 mg Route: IVP; Site: left antecubital; harris 21:56 Drug: Potassium Chloride 10 mEq Route: PO; Disposition Summary: 01/08/22 17:26 Hospitalization Ordered Hospitalization Status: Inpatient Admission dionne Provider: Ousmane Hameed cha Condition: Fair dionne Problem: new dionne Symptoms: have improved dionne Bed/Room Type: Standard dionne Location: Telemetry/MedSurg (Inpatient)(01/08/22 20:34) mw Room Assignment: [id number](01/08/22 20:34) mw Diagnosis - Weakness dionne - Non ST elevation IN dionne - End stage renal disease - on HD dionne - Unspecified combined systolic (congestive) and diastolic (congestive) heart failure dionne - Coronavirus infection, unspecified dionne Forms: - Medication Reconciliation Form dionne - SBAR form dionne Signatures: Dispatcher [employer] Brittany Gunter RN RN mw Anderson, Corey, MD MD cha Au-Stager, Heather RN Vangie Cardozo RN RN mk Samantha Fillers RN sf1 Corrections: (The following items were deleted from the chart) 20:34 17:26 Intensive Care Unit [facility] 20:34 17:26 dionne
--- NOTE | 2022-01-08 18:02 | RAD REPORT ---
EXAM DESCRIPTION: CT - Head C Spine Cap Wo Con - 01/08/2022 5:33 pm CLINICAL HISTORY: PAIN, head, neck, chest and abdomen pain COMPARISON: Chest Single View dated 01/08/2022 TECHNIQUE: Axial [address] head images were obtained. Axial [address] cervical spine images were obtain ed with sagittal and coronal reconstruction images reviewed. Axial 5 mm images of the chest, abdomen and pelvis were obtained without IV contrast. Sagittal and coronal reconstruction of the chest, abdo men and pelvis performed. All CT scans are performed using dose optimization technique as appropriate and may include automated exposure control or mA/KV adjustment according to patient size. FINDINGS: No intracranial hemorrhage, mass or edema. No midline shift or abnormal fluid collection. Cerebral white matter chronic ischemic changes are moderate in degree. Atrophy is mild. Ventricles ar e in proportion to volume loss. Old ischemic insults are seen in the left basal ganglia region. Chron ic ischemic attenuation is evident in the brainstem. Dense arterial tree calcifications are present. Mastoid air cells are clear. Trace mucosal thickening in the sphenoid sinus. No skull fracture. CT cervical spine shows normal height and alignment. No fracture or acute finding. C6-7 disc space na rrowing present. No suspicious soft tissue finding. Central canal detail is inherently limited. Very dense carotid bulb calcifications are present. Interstitial thickening is present. Posterior gutter patchy lung parenchymal opacities are present. T his is favored to be an interstitial edema pattern with atelectasis probably from volume overload. Ve ry minimal right pleural effusion present. No pneumothorax. Pneumonia within the atelectatic lung in each posterior gutter is possible but not considered likely. Cardiomegaly is present. Dense coronary artery calcifications are present. Dense cardiac valve calcifications are seen. There is no pericardi al effusion. Small lymph nodes are present in the right pericardial fat pad. No mediastinal hematoma and the aorta and pulmonary arteries are unremarkable for non contrast study. No chest will mass or a bnormal axillary finding. No displaced rib fracture or other significant bony finding. Liver and spleen are prominent in size. Spleen is 15 cm craniocaudal dimension. No focal lesions on n oncontrast imaging. Subtle nodularity to the liver capsule present. No biliary tree dilatation. There is questionable thickening of the gallbladder wall. There is none of motion artifact that gallbladde r wall assessment is limited. Gallstones can always be occult on CT imaging. No acute pancreatic proc ess seen. No hydronephrosis of either kidney. Dense arterial tree calcifications are present. No obst ructing calculi. Urinary bladder is fully contracted limiting assessment. Atrophic uterus is evident. There are dense vascular calcifications along the margin of the uterus. O varies are not clearly distinguishable from adjacent on opacified small bowel. Ulna is along the righ t superior margin of the uterine fundus is probably volume averaging of ovary, bowel and a small amou nt of free fluid. No gastric dilatation or gastric wall thickening. No dilated large or small bowel. Appendicitis is no t suspected. Left-sided diverticulosis is mild. No mass or bulky lymphadenopathy seen. No free air, p neumatosis or focal inflammatory stranding. Trace amount of free intraperitoneal fluid is present. Very dense aortoiliac and mesenteric arterial calcifications. No acute or destructive bone process seen. IMPRESSION: Mild atrophy and mild to moderate chronic ischemic changes are present but no acute intr acranial finding seen. Mild cervical spine degenerative change with no acute finding. Mild CHF/volume overload pattern with bilateral posterior gutter atelectasis and trace pleural effusi on. Cardiomegaly is present. Mild hepatosplenomegaly with no emergent abdomen or pelvis finding. Ovaries are difficult to distinguish from adjacent on opacified bowel. There is fullness in the right superior adnexa that is probably volume averaging of bowel, ovary and small amount of free fluid rat her than mass. Follow-up pelvic ultrasound or follow-up CT pelvis following oral contrast could be pe rformed.
[2022-01-08] MEDS ORDERED: HEPARIN 5000 UNIT/ML 1 ML VIAL ONE (18:56)
[2022-01-08] MEDS ORDERED: HEPARIN/D5W 25,000 UNIT/500 ML BAG IV ONE (18:56)
[2022-01-08] MEDS ORDERED: ASPIRIN 81 MG CHEWABLE TABLET ONE (18:58)
[2022-01-08] MEDS ORDERED: METOPROLOL TAR 25 MG TAB ONE (18:58)
[2022-01-08] MEDS ORDERED: PANTOPRAZOLE 40 MG INJ ONE (18:58)
[2022-01-08] MEDS ORDERED: POTASSIUM CL SA 10 MEQ TAB PO ONE (21:55)
[2022-01-08 21:57] LABS: Arterial Blood Carboxyhemoglob 2.2 % (0-1.5); Blood O2 Saturation 99.5 % (92-98.5)
--- NOTE | 2022-01-08 22:10 | P.HP ---
Certification for Inpatient Patient admitted to: Inpatient With expected LOS: >2 Midnights Patient will require the following post-hospital care: None Practitioner: I am a practitioner with admitting privileges, knowledge of patient current condition, hospital course, and medical plan of care. Services: Services provided to patient in accordance with Admission requirements found in Title 42 Section 412.3 of the Code of Federal Regulations <Issa Bishop - Last Filed: 01/08/22 22:18> Patient History Date of Service: 01/08/22 Reason for admission: dizziness, weakness History of Present Illness: Ms. Harris is a 61 yo F with CHF, ESRD on HD TTS, and HTN who presents with weakness, dizziness and AMS since dialysis yesterday. Per daughter, dialysis nurses says that patient was not acting like herself. Weight before and after dialysis was 153 lbs. Daughter says that evening, patient was fatigued, rocking back and forth and said that her 'nerves were bad.' She says she woke the patient in the morning before she left at work and went to check on her after lunch. Patient was asleep on the floor. Said that she did not fall, but that her legs gave out and she could not get up. She denies hitting her head. Daughter activated EMS. At bedside she is able to answer some questions, AOx2. She says she has been SOB and MOE for the past week. She denies chest pain. Daughter says patient still makes urine. COVID+, was admitted for covid pneumonia one month ago and improved. Hemoglobin 9.2 Plt 125 K 3.1 Troponin 5974 BUN 29 Cr 6.12 GFR 8 Glu 190 Dbili [id number] IMPRESSION: Mild atrophy and mild to moderate chronic ischemic changes are present but no acute intracranial finding seen. Mild cervical spine degenerative change with no acute finding. Mild CHF/volume overload pattern with bilateral posterior gutter atelectasis and trace pleural effusion. Cardiomegaly is present. Mild hepatosplenomegaly with no emergent abdomen or pelvis finding. Ovaries are difficult to distinguish from adjacent on opacified bowel. There is fullness in the right superior adnexa that is probably volume averaging of bowel, ovary and small amount of free fluid rather than mass. Follow-up pelvic ultrasound or follow-up CT pelvis following oral contrast could be performed. CXR IMPRESSION: Mild CHF/volume overload pattern. - Past Medical/Surgical History Diabetic: Yes -: End-stage renal disease on hemodialysis -: HTN -: End-stage renal disease on hemodialysis -: Chronic diastolic CHF -: Tobacco abuse -: History of drug abuse -: Chronic pain -: Anemia chronic disease -: knee sx -: AV graft Psychosocial/ Personal History: Patient lives with daughter at home - Family History Mother -: Hypertension, Diabetes, Kidney disease - Social History Alcohol use: No CD- Drugs: No Caffeine use: Yes Place of Residence: Home <Issa Bishop - Last Filed: 01/08/22 22:18> Date of Service: 01/08/22 <Ousmane Hameed - Last Filed: 01/11/22 01:15> Allergies Penicillins Adverse Reaction (Mild, Verified 03/30/19 11:43) SWELLING Home Medications: Calcium Acetate 2 cap PO TIDWM 12/05/21 Gabapentin 300 mg PO BID 12/05/21 Tizanidine [Zanaflex*] 4 mg PO BID PRN 12/05/21 Benzonatate [Tessalon Perle*] 100 mg PO TID PRN #30 cap 12/08/21 Cholecalciferol (Vitamin D3) [Vitamin D 5,000 IU Cap*] 5,000 unit PO DAILY #30 cap 12/08/21 Mometasone/Formoterol [Dulera 200 Mcg/5 Mcg Inhaler] 2 puff IH BID #1 inhaler 12/08/21 Thiamine HCl [Vitamin B-1*] 100 mg PO DAILY #30 tablet 12/08/21 carvediloL [Coreg*] 25 mg PO BID 6AM 6PM #60 tab 12/08/21 Hydralazine [Apresoline*] 50 mg PO BID 01/09/22 Nifedipine [Nifedipine ER] 30 mg PO DAILY 01/09/22 Ramipril [Altace] 10 mg PO BEDTIME 01/09/22 Tizanidine [Zanaflex*] 4 mg PO PRN 01/09/22 Review of Systems 10-point ROS is otherwise unremarkable General: Weakness, Malaise Eyes: Unremarkable ENT: Unremarkable Respiratory: Shortness of Breath, SOB with Excertion, Wheezing Cardiovascular: Unremarkable Gastrointestinal: Unremarkable Genitourinary: Unremarkable Musculoskeletal: Leg Pain Integumentary: Unremarkable Neurological: Confusion Lymphatics: Unremarkable <Issa Bishop - Last Filed: 01/08/22 22:18> Physical Examination - Physical Exam General: Oriented x2, Other (lethargic) HEENT: Atraumatic, PERRLA, Mucous membr. moist/pink, EOMI, Sclerae nonicteric Neck: Supple, 2+ carotid pulse no bruit, No LAD, Without JVD or thyroid abnormality Respiratory: Normal air movement, Crackles/rales Cardiovascular: No edema, Regular rate/rhythm, Normal S1 S2 Gastrointestinal: Normal bowel sounds, No tenderness Musculoskeletal: No tenderness Integumentary: No rashes Neurological: Normal tone, Sensation intact, Abnormal speech, Abnormal strength, Abnormal affect Lymphatics: No axilla or inguinal lymphadenopathy Urinary: Dialysis catheter, Redd catheter - Studies Laboratory Data (last 24 hrs) 01/08/22 14:49: PT 13.2 H, INR 1.15 01/08/22 14:49: WBC 8.50, Hgb 9.2 L, Hct 27.8 L, Plt Count 125 L 01/08/22 14:49: Sodium 139, Potassium 3.1 L, BUN 29 H, Creatinine 6.12 H*, Glucose 190 H, Magnesium 2.1 D, Total Bilirubin 1.0, AST 47 H, ALT 13, Alkaline Phosphatase 69, Lipase 64 L <Issa Bishop - Last Filed: 01/08/22 22:18> - Studies Microbiology Data (last 24 hrs): 01/08/22 18:00 Blood - Blood Blood Culture Gram Stain - Final 01/08/22 18:00 Blood - Blood Gram Stain - Final 01/08/22 17:50 Blood - Blood Blood Culture Gram Stain - Final 01/08/22 17:50 Blood - Blood Gram Stain - Final <Ousmane Hameed - Last Filed: 01/11/22 01:15> Assessment and Plan - Problems (Diagnosis) (1) CHF (congestive heart failure) Current Visit: Yes Status: Chronic Qualifiers: Heart failure type: unspecified Heart failure chronicity: acute on chronic Qualified Code(s): I50.9 - Heart failure, unspecified (2) HTN (hypertension) Current Visit: Yes Status: Chronic Qualifiers: Hypertension type: primary hypertension Qualified Code(s): I10 - Essential (primary) hypertension (3) AMS (altered mental status) Current Visit: Yes Status: Chronic Qualifiers: Altered mental status type: disorientation Qualified Code(s): R41.0 - Disorientation, unspecified (4) Anemia of chronic disease Current Visit: Yes Status: Chronic (5) NSTEMI (non-ST elevated myocardial infarction) Current Visit: Yes Status: Acute (6) Weakness Current Visit: Yes Status: Acute (7) COVID-19 virus infection Current Visit: No Status: Chronic (8) ESRD (end stage renal disease) Current Visit: No Status: Chronic (9) Fluid overload Current Visit: No Status: Acute Qualifiers: Hypervolemia type: unspecified Qualified Code(s): E87.70 - Fluid overload, unspecified - Plan cardiology consulted trend troponin, repeat EKG continue heparin drip continue ASA, metoprolol, statin hydralazine PRN for BP spikes lipid and thyroid levels pending ECHO pending breathing treatments as needed nephrology consulted anemia workup pending renal diet sliding scale insulin and accuchecks fall precautions, PT consulted reconcile home medications Discharge Plan: Home Plan to discharge in: 48 Hours - Advance Directives Does patient have a Living Will: No Does patient have a Durable POA for Healthcare: No - Code Status/Comfort Care Code Status Assessed: Yes (full code ) Critical Care: No Time Spent Managing Pts Care (In Minutes): 70 <Issa Bishop - Last Filed: 01/08/22 22:18> Date of Service: 01/08/22 Subjective: No significant changes Physical Examination: Vitals: Afebrile vital signs are stable Physical exam: Cardiovascular: Within normal limits. Lungs: Within normal limits Abdomen: Within normal limits Neuro: Awake, alert, oriented to person place and time Assessment: 1. Heart failure 2. ESRD 3. Volume overload Plan: 1. Continue with current plan of care <Ousmane Hameed - Last Filed: 01/11/22 01:15>
[2022-01-08] MEDS ORDERED: IPRATROPIUM BROM 0.5MG/2.5ML NEB PRN (23:07)
[2022-01-08] MEDS ORDERED: ALBUTEROL 2.5 MG/3 ML NEB SOL NEB PRN (23:07)
[2022-01-08] MEDS ORDERED: HEPARIN/D5W 25,000 UNIT/500 ML BAG IV SCH (23:07)
[2022-01-08] MEDS ORDERED: FUROSEMIDE 40 MG/4 ML VIAL IV ONE (23:07)
[2022-01-08] MEDS ORDERED: ONDANSETRON 4 MG/2 ML VIAL IV PRN (23:07)
[2022-01-08] MEDS: INSULIN -REGULAR HUMAN 50 UNIT/0.5 ML ML SQ SCH (23:07)
[2022-01-08] MEDS ORDERED: FUROSEMIDE 20 MG/ 2ML VIAL ONE (23:23)
[2022-01-09 00:02] LABS: Troponin High Sensitivity 7628.8 pg/mL (<58.9)
[2022-01-09] MEDS: ATORVASTATIN 40 MG TAB PO SCH ×2 (01:12→22:06)
[2022-01-09] MEDS: METOPROLOL TAR 25 MG TAB PO SCH ×2 (05:05→17:34)
[2022-01-09] MEDS: ACETAMINOPHEN 500 MG TAB PO PRN (05:47)
[2022-01-09 06:32] LABS: Absolute Lymphocytes (CBC) 0.7 K/uL (0.7-4.9); Hematocrit 25.5 % (36.0-45.0); Lymphocytes % 12.4 % (15.3-44.8); RBC Red Blood Cell Count 2.63 M/uL (3.86-4.86)
[2022-01-09] MEDS: INSULIN -REGULAR HUMAN 50 UNIT/0.5 ML ML SQ SCH ×4 (07:30→22:06)
[2022-01-09 07:35] LABS: Bilirubin Total 0.8 mg/dL (0.2-1.0); Potassium 3.2 mmol/L (3.5-5.1)
[2022-01-09 07:36] LABS: Albumin 2.6 g/dL (3.4-5.0); Ferritin 554.1 ng/mL (8-388); Phosphorus 3.6 mg/dL (2.5-4.9); Protein, Total 6.9 g/dL (6.4-8.2); Thyroid Stimulating Hormone 0.354 uIU/mL (0.360-3.740)
[2022-01-09] MEDS ORDERED: HEPARIN/D5W 25,000 UNIT/500 ML BAG IV SCH (08:00)
[2022-01-09] MEDS ORDERED: INFLUENZA VACCINE (for 6+ mo) 0.5 ML DOSE IMVAC ONE (09:00)
[2022-01-09] MEDS ORDERED: PNEUMOCOCCAL VACCINE 0.5 ML IMVAC ONE (09:00)
[2022-01-09] MEDS: ASPIRIN EC 81 MG TAB PO SCH (09:16)
[2022-01-09] MEDS ORDERED: HYDROCORTISONE SUC 100 MG INJ IV ONE (13:05)
--- NOTE | 2022-01-09 13:21 | RAD REPORT ---
EXAM DESCRIPTION: CT - Head Brain Wo Cont - 01/09/2022 1:10 pm CLINICAL HISTORY: AMS COMPARISON: Head Brain Wo Cont dated 07/10/2020 TECHNIQUE: All CT scans are performed using dose optimization technique as appropriate and may inclu de automated exposure control or mA/KV adjustment according to patient size. FINDINGS: No intracranial hemorrhage, hydrocephalus or extra-axial fluid collection.No areas of brai n edema or evidence of midline shift. Moderate chronic small vessel ischemic changes. The paranasal sinuses and mastoids are clear. The calvarium is intact. IMPRESSION: No acute intracranial abnormality.
[2022-01-09] MEDS ORDERED: Levofloxacin500mg IV 500 MG/100 ML BAG IV ONE (15:00)
[2022-01-09] MEDS ORDERED: VANCOMYCIN 1 GM in NA CHLORIDE 0.9% 250 ML IVPB ONE (15:00)
--- NOTE | 2022-01-09 19:46 | CON ---
Date of Consultation: 01/09/2022 Reason For Consultation: Elevated troponin. History Of Present Illness: This is a pleasant 61-year-old female with a history of CHF; end-stage r enal disease, on hemodialysis; hypertension, presented with generalized weakness and dizziness. Dial ysis nurse said that the patient was not acting herself. She is confused. Does not have any chest p ain or shortness of breath. Discussed, she is positive of COVID, which she has been positive for the past month. Past Medical History: As outlined above in HPI. Medications: Refer to the reconciliation sheet for detailed list. Allergies: PENICILLIN. Family History: No premature coronary disease or cancer. Social History: Does not smoke or drink. Does not use any drugs. Review of Systems: All systems reviewed, and those were negative except for mentioned in HPI. Physical Examination: Vital Signs: Reviewed. Head and Neck: Pupils are equal, reactive to light. Intact eye movements. Neck: No JVD. No cervical lymphadenopathy. Neck is supple. Thyroid is not enlarged. Lungs: Clear to auscultation bilaterally. No rhonchi, rales, or crackles. No accessory muscle use. Heart: Irregular. No extra sounds. Abdomen: Soft, nontender. Bowel sounds positive. No organomegaly No masses or hernia. No rigidity or rebound. Extremities: No clubbing, cyanosis. Intact pulses. Skin: No rash. Neurologic: Alert but with confusion. Moving all extremities. Lymph Nodes: No cervical or axillary lymphadenopathy. Laboratory Investigations: Hemoglobin 8.3. Sodium 139, BUN 38, creatinine 7, troponin 7515. It has been stable. Assessment And Recommendation: 1.Non-ST elevation myocardial infarction. I discussed with ER doctor yesterday and recommend IV hep gautam for the therapeutic PTT, and aspirin 81 mg daily and plan for coronary angiogram on Tuesday and p ase trend troponin until it trends down. 2.End-stage renal disease, on hemodialysis. From cardiology standpoint, okay to dialyze the patient as long as blood pressure does not drop. If the patient can go without dialysis until angiogram is done will be preferred, but if dialysis is needed, then carefully monitor blood pressure during the p rocess and make sure that the mean perfusing pressure is above 65 all the time. Thank you for the consult. /CHANO Voice ID: [id number] Report ID: [id number]
[2022-01-09] MEDS: CEFTRIAXONE 1,000 MG in NA CHLORIDE 0.9% 50 ML IVPB SCH (22:05)
--- NOTE | 2022-01-09 23:49 | CON ---
Date of Consultation: 01/09/2022 Requesting Provider: Ousmane Hameed MD Reason For Consultation: End-stage renal disease. History Of Present Illness: The patient is a 61-year-old female who presented to the hospital with d izziness and altered mental status. The patient was admitted for altered mental status workup. Curr ently, she is seen at the bedside. She is only responding to pain; however, as soon she responds to pain, she immediately falls back to sleep. She is unable to answer any questions or give any history at this time. History is taken from the chart. Past Medical History: Significant for end-stage renal disease, COVID-19 pneumonia approximately 1 mo nth ago, hypertension, chronic diastolic congestive heart failure, prior history of drug abuse, chron ic pain. Family History: Hypertension, diabetes, kidney disease. Physical Examination: Vital Signs: Blood pressure is 118/57; pulse 68; afebrile, however, T-max is 100.4. General: Thin. No acute distress. Heart: Regular rate and rhythm. No murmurs, rubs, gallops. Lungs: Grossly clear. Abdomen: Soft. Extremities: No significant edema. Neuro: The patient as stated is drowsy but arousable, but unable to stay awake. Laboratory Data: CBC: Hemoglobin 8.3, hematocrit is 25.5. Serum chemistry: Potassium in the morning was 3.2, BUN and creatinine were 38/7.06, phosphorus 3.6, magnesium 2, iron saturation 8.5%, total iron level is 14. Troponins were elevated. U-tox was pendi ng. Diagnostic Imaging: Head CT which was taken after my visit had shown no acute abnormalities. Chest x-ray; mild CHF volume overload pattern. Current Medications: Reviewed. Impression: 1.End-stage renal disease, on hemodialysis. 2.Altered mental status. 3.Fevers of unknown etiology. 4.Hypertension. 5.Anemia with iron deficiency. Plan: The patient is stable from volume and electrolyte standpoint. We will hold off on dialysis to day as the patient is having significant change in mental status, and we will be waiting for the ment al status workup to be completed. The patient is severely anemic with iron deficiency. We would rec ommend monitoring stools and ruling out any evidence of GI bleed. Iron infusion will be started here in the hospital. ESAs will be given once iron levels are adequate. The patient does have NSTEMI. Await Cardiology followup in that regard. Dialysis will likely be undertaken on Tuesday. SHEYLA Voice ID: [id number] Report ID: [id number]
--- NOTE | 2022-01-09 23:54 | P.PN ---
Subjective Date of Service: 01/09/22 Subjective AMS; CT head repeated; HD today; cardiac workup per Cardiology Review of Systems 10-point ROS is otherwise unremarkable Physical Examination - Vital Signs reviewed - Physical Exam General: Patient is confused Respiratory: Clear to auscultation bilaterally, Normal air movement Cardiovascular: Regular rate/rhythm, Normal S1 S2 Gastrointestinal: Normal bowel sounds, No tenderness Neurological: Patient confused and not really following commands Assessment & Plan - Problems (Diagnosis) (1) Pneumonia due to COVID-19 virus Current Visit: Yes Status: Acute (2) CAD (coronary artery disease) Current Visit: Yes Status: Chronic Qualifiers: Coronary Disease-Associated Artery/Lesion type: elem artery [place] vs. transplanted heart: elem heart Associated angina: without angina Qualified Code(s): I25.10 - Atherosclerotic heart disease of elem coronary artery without angina pectoris (3) Hypertension Current Visit: Yes Status: Chronic Qualifiers: (4) Type 2 diabetes Current Visit: Yes Status: Chronic Qualifiers: (5) ESRD Current Visit: Yes Status: Chronic - Plan Continue plan of care as mentioned below: -continue O2 as needed -monitor labs -continue covid supplements -PO steroids -antitussives and antiemetics as needed -reconcile and continue home medications -DVT ppx - Advance Directives Does patient have a Living Will: Yes Does patient have a Durable POA for Healthcare: Yes tuesday Physical Examination - Vital Signs Temperature: 98.9 F Blood Pressure: 151/70 Pulse: 73 Respirations: 15 Pulse Ox (%): 101 - Studies Microbiology Data (last 24 hrs): 01/08/22 18:00 Blood - Blood Blood Culture Gram Stain - Final 01/08/22 18:00 Blood - Blood Gram Stain - Final 01/08/22 17:50 Blood - Blood Blood Culture Gram Stain - Final 01/08/22 17:50 Blood - Blood Gram Stain - Final Assessment & Plan - Advance Directives Does patient have a Living Will: No Does patient have a Durable POA for Healthcare: No
[2022-01-10 01:36] VITALS: BMI 21.1
[2022-01-10 04:18] LABS: Absolute Lymphocytes (CBC) 0.5 K/uL (0.7-4.9); Hematocrit 24.8 % (36.0-45.0); Lymphocytes % 9.9 % (15.3-44.8); MPV 9.7 fL (7.6-11.3); RBC Red Blood Cell Count 2.55 M/uL (3.86-4.86)
[2022-01-10 05:02] LABS: Albumin 2.3 g/dL (3.4-5.0); Bilirubin Total 0.5 mg/dL (0.2-1.0); Magnesium 2.2 mg/dL (1.8-2.4); Potassium 3.7 mmol/L (3.5-5.1); Protein, Total 6.7 g/dL (6.4-8.2); Thyroid Stimulating Hormone 0.236 uIU/mL (0.360-3.740)
[2022-01-10 05:04] LABS: Troponin High Sensitivity 3145.9 pg/mL (<58.9)
[2022-01-10] MEDS: METOPROLOL TAR 25 MG TAB PO SCH ×2 (06:54→18:00)
[2022-01-10] MEDS: INSULIN -REGULAR HUMAN 50 UNIT/0.5 ML ML SQ SCH ×4 (07:30→21:53)
[2022-01-10] MEDS: CEFTRIAXONE 1,000 MG in NA CHLORIDE 0.9% 50 ML IVPB SCH ×2 (08:07→21:52)
[2022-01-10] MEDS: ASPIRIN EC 81 MG TAB PO SCH (08:08)
[2022-01-10] MEDS: HYDRALAZINE HCL 20 MG/ML VIAL IV PRN (08:08)
[2022-01-10] MEDS ORDERED: VANCOMYCIN 500 MG in NA CHLORIDE 0.9% 100 ML IVPB SCH (08:45)
[2022-01-10] MEDS ORDERED: CEFTRIAXONE 1000 MG/VIAL ONE (20:27)
[2022-01-10] MEDS: ACETAMINOPHEN 500 MG TAB PO PRN (21:52)
[2022-01-10] MEDS: ATORVASTATIN 40 MG TAB PO SCH (21:53)
--- NOTE | 2022-01-11 01:10 | P.PN ---
Date of Service: 01/10/22 Subjective Patient is doing much better. Patient is more awake and alert today. Clinical symptoms are improved. CT of the head was unremarkable. Patient file a came around. Spoke with Cardiology and they are wanting to proceed with stress testing. Review of Systems 10-point ROS is otherwise unremarkable Physical Examination - Vital Signs reviewed - Physical Exam General: Alert, In no apparent distress Respiratory: Clear to auscultation bilaterally, Normal air movement Cardiovascular: Regular rate/rhythm, Normal S1 S2 Gastrointestinal: Normal bowel sounds, No tenderness Neurological: No focal deficits Assessment & Plan - Problems (Diagnosis) (1) Pneumonia due to COVID-19 virus Current Visit: Yes Status: Acute (2) CAD (coronary artery disease) Current Visit: Yes Status: Chronic Qualifiers: Coronary Disease-Associated Artery/Lesion type: [place] artery [place] vs. transplanted heart: [place] heart Associated angina: without angina Qualified Code(s): (3) CHF Current Visit: Yes Status: Chronic (4) ESRD Current Visit: Yes Status: Chronic (5) DM-2 Current Visit: Yes Status: Chronic - Plan Continue plan of care as mentioned below: -pharmacologic stress test in the morning -check for home oxygen. -repeat labs -hemodialysis per Nephrology -continue with cardiac meds -strict blood pressure and blood sugar control -DVT prophylaxis
[2022-01-11] MEDS ORDERED: TIZANIDINE 4 MG TABLET PO PRN (01:16)
[2022-01-11 03:46] LABS: Absolute Lymphocytes (CBC) 0.8 K/uL (0.7-4.9); Hematocrit 25.4 % (36.0-45.0); Lymphocytes % 12.5 % (15.3-44.8); MPV 9.4 fL (7.6-11.3); RBC Red Blood Cell Count 2.63 M/uL (3.86-4.86)
[2022-01-11 04:00] LABS: Albumin 2.3 g/dL (3.4-5.0); Bilirubin Total 0.5 mg/dL (0.2-1.0); Potassium 3.2 mmol/L (3.5-5.1); Protein, Total 6.6 g/dL (6.4-8.2)
[2022-01-11] MEDS: carvediloL 25 MG TAB PO SCH ×2 (05:20→18:02)
[2022-01-11] MEDS: METOPROLOL TAR 25 MG TAB PO SCH ×2 (05:20→18:01)
--- NOTE | 2022-01-11 06:46 | P.PN ---
Date of Service: 01/11/22 Subjective: No acute events overnight per nursing staff Patient without any new complaints For stress test today ROS: 10 point ROS as noted above, otherwise negative Physical exam GEN: Alert, NAD HEENT: Normal conjunctiva, sclera anicteric CV: Regular rate and rhythm, no edema Pulm: Nonlabored respirations on 2L NC ABD: Soft, nontender, nondistended Integumentary: No erythema, no tenderness of right dialysis catheter Neuro: Normal speech when interacting with nursing staff Problem List Acute hypoxemic respiratory failure secondary to COVID-19 pneumonia NSTEMI CAD CHF ESRD on HD DM 2 Pharmacologic stress tests ordered for today Wean oxygen as tolerated Follow-up on blood work this morning Nephrology following, since on dialysis Patient with 4/4 blood cultures growing gram-positive bacteria ID consulted Continue IV vancomycin and Rocephin for now Echocardiogram to be done today Unclear on source, central line is possibility, no surrounding infectious signs Repeat blood culture pending Code: Full Dispo: Anticipate DC home in ~2-3 days Time Spent Managing Pts Care (In Minutes): 35
[2022-01-11] MEDS: INSULIN -REGULAR HUMAN 50 UNIT/0.5 ML ML SQ SCH ×4 (07:30→20:16)
[2022-01-11] MEDS ORDERED: REGADENOSON 0.4 MG/5 ML SYR IV ONE (08:29)
[2022-01-11] MEDS: DULERA 200/5 (MOMETASONE/FORMOTEROL) INHALER IH SCH ×2 (09:00→20:14)
[2022-01-11] MEDS ORDERED: Levofloxacin 250mg IV 250 MG/50 ML BAG IV SCH (09:00)
[2022-01-11] MEDS: VITAMIN D 5,000 UNIT CAP PO SCH (09:00)
[2022-01-11] MEDS: NIFEDIPINE XL 30 MG TABLET PO SCH (09:02)
[2022-01-11] MEDS: GABAPENTIN 300 MG CAP PO SCH ×2 (09:02→20:13)
[2022-01-11] MEDS: CEFTRIAXONE 1,000 MG in NA CHLORIDE 0.9% 50 ML IVPB SCH ×2 (09:03→20:17)
[2022-01-11] MEDS: HYDRALAZINE HCL 25 MG TABLET PO SCH ×2 (09:04→20:12)
[2022-01-11] MEDS: CALCIUM ACETATE 667 MG TAB PO SCH ×3 (09:04→18:02)
[2022-01-11] MEDS: THIAMINE HCL 100 MG TABLET PO SCH (09:05)
[2022-01-11] MEDS: ASPIRIN EC 81 MG TAB PO SCH (09:05)
--- NOTE | 2022-01-11 12:34 | P.CNS ---
Date of Consult: 01/11/22 Chief Complaint: dizziness, weakness History of Present Illness: The patient is a 61-year-old female with a past medical history of CHF, ESRD on HD TTS, and hypertension who presented to the emergency department secondary to weakness dizziness and altered mental status since dialysis yesterday. History/ROS unable to obtain as patient was not willing to participate in patient interview. Per chart review the patient was noted to be acting different and was found on the floor per her daughter. Infectious disease has been consulted as the patient was found to have positive blood cultures. Patient growing nonbeta-hemolytic strep and 4 out of 4 bottles, susceptibility and speciation pending. Repeat blood blood cultures obtained on 01/11 pending. Source of infection unclear. Patient has right dialysis catheter placed, area is clean dry and intact with no clinical signs of infection. Source of infection could be pneumonia. ROS unable to obtain. Allergies Penicillins Adverse Reaction (Mild, Verified 03/30/19 11:43) SWELLING Home Medications: Calcium Acetate 2 cap PO TIDWM 12/05/21 Gabapentin 300 mg PO BID 12/05/21 Tizanidine [Zanaflex*] 4 mg PO BID PRN 12/05/21 Benzonatate [Tessalon Perle*] 100 mg PO TID PRN #30 cap 12/08/21 Cholecalciferol (Vitamin D3) [Vitamin D 5,000 IU Cap*] 5,000 unit PO DAILY #30 cap 12/08/21 Mometasone/Formoterol [Dulera 200 Mcg/5 Mcg Inhaler] 2 puff IH BID #1 inhaler 12/08/21 Thiamine HCl [Vitamin B-1*] 100 mg PO DAILY #30 tablet 12/08/21 carvediloL [Coreg*] 25 mg PO BID 6AM 6PM #60 tab 12/08/21 Hydralazine [Apresoline*] 50 mg PO BID 01/09/22 Nifedipine [Nifedipine ER] 30 mg PO DAILY 01/09/22 Ramipril [Altace] 10 mg PO BEDTIME 01/09/22 Tizanidine [Zanaflex*] 4 mg PO PRN 01/09/22 - Past Medical/Surgical History Diabetic: Yes -: End-stage renal disease on hemodialysis -: HTN -: End-stage renal disease on hemodialysis -: Chronic diastolic CHF -: Tobacco abuse -: History of drug abuse -: Chronic pain -: Anemia chronic disease -: knee sx -: AV graft Psychosocial/ Personal History: Patient lives with daughter at home - Family History Mother Medical History: Hypertension, Diabetes, Kidney disease - Social History Smoking Status: Current every day smoker Alcohol use: No CD- Drugs: No Caffeine use: Yes Place of Residence: Home Review of Systems is unable to be obtained Physical Examination Temp Pulse Resp BP Pulse Ox 98.3 F 66 20 170/74 H 100 01/11/22 08:00 01/11/22 09:02 01/11/22 08:00 01/11/22 09:02 01/11/22 08:00 General: In no apparent distress HEENT: Atraumatic Neck: Supple Respiratory: Other (Bibasilar crackles/rales) Cardiovascular: No edema, Regular rate/rhythm Capillary refill: <2 Seconds Gastrointestinal: Normal bowel sounds, No tenderness Musculoskeletal: No clubbing, No swelling Integumentary: No rashes, No breakdown, No significant lesion Conclusions/Impression: Antibiotics Vancomycin: urrent Rocephin: 01/09current Levaquin: Assessment/plan Gram-positive bacteremia Blood cultures obtained on 01/08 grew nonbeta-hemolytic strep and 4 out of 4 bottles. Awaiting speciation and susceptibility. Repeat blood cultures obtained on 01/11 pending. Continue broad-spectrum empiric coverage with vancomycin and Rocephin until susceptibility is obtained. Source of her infection remains unclear. Could be secondary to pneumonia, chest x-ray showed mild CHF/volume overload. COVID-19 PNA Patient currently utilizing 2 L of oxygen via nasal cannula. Is out of window for remdesivir therapy. Continue to monitor closely. AMS ESRD on HD CHF Hypertension -Medical management per primary team Care discussed with Dr. Eren Bettencourt for consultation.
[2022-01-11] MEDS: LACTOBACILLUS/ACIDOPHILUS TAB PO SCH ×2 (13:00→20:13)
--- NOTE | 2022-01-11 14:16 | ECHO ---
HEIGHT: 5 ft 5 in WEIGHT: 127 lb 0 oz DATE OF STUDY: 01/11/[address]: Issa Bishop 2-DIMENSIONAL: YES M.MODE: YES DOPPLER: YES COLOR FLOW: YES TDS: NO PORTABLE: NO DEFINITY: NO BUBBLE STUDY: NO DIAGNOSIS: VOLUME OVERLOAD CARDIAC HISTORY: CATHERIZATION: SURGERY: PROSTHETIC VALVE: PACEMAKER: MEASUREMENTS (cm) DIASTOLIC (NORMALS) SYSTOLIC (NORMALS) IVSd 1.5 (0.6-1.2) LA Diam 3.5 (1.9-4.0) LVEF 56% LVIDd 4.2 (3.5-5.7) LVIDs 3.0 (2.0-3.5) %FS 29% LVPWd 1.5 (0.6-1.2) Ao Diam 2.8 (2.0-3.7) 2 DIMENSIONAL ASSESSMENT: RIGHT ATRIUM: NORMAL LEFT ATRIUM: NORMAL RIGHT VENTRICLE: NORMAL LEFT VENTRICLE: NORMAL TRICUSPID VALVE: NORMAL MITRAL VALVE: MITRAL ANNULAR CALCIFICATION WITH MILD MITRAL REGURGITATION PULMONIC VALVE: NORMAL AORTIC VALVE: MILD AORTIC REGURGITATION PERICARDIAL EFFUSION: NONE AORTIC ROOT: NORMAL. LEFT VENTRICULAR WALL MOTION: NORMAL. DOPPLER/COLOR FLOW: SEE BELOW. COMMENTS: NORMAL LEFT VENTRICULAR EJECTION FRACTION 55-60%. MILD MITRAL REGURGITATION WITH MITRAL ANNULAR CALCIFICATION. MILD AORTIC STENOSIS WITH CALCIFIED AORTIC VALVE. TECHNOLOGIST: KARI DE LA ROSA
--- NOTE | 2022-01-11 19:26 | P.PN ---
Date of Service: 01/11/22 Vital Signs Temp Pulse Resp BP Pulse Ox 98.1 F 75 20 127/64 100 01/11/22 16:00 01/11/22 18:02 01/11/22 16:00 01/11/22 18:02 01/11/22 16:00 Medications Acetaminophen (Acetaminophen 500 Mg Tab) 500 mg PO Q4HP PRN PRN Reason: Pain scale 2-4 (Mild) Last Admin: 01/10/22 21:52 Dose: 500 mg Documented by: Albuterol Sulfate (Albuterol 2.5 Mg/3 Ml Neb Erma) 2.5 mg NEB [id number] PRN PRN Reason: SHORTNESS OF BREATH Aspirin (Aspirin Ec 81 Mg Tab) 81 mg PO DAILY [facility] Last Admin: 01/11/22 09:05 Dose: 81 mg Documented by: Atorvastatin Calcium (Atorvastatin 40 Mg Tab) 40 mg PO BEDTIME [facility] Last Admin: 01/10/22 21:53 Dose: 40 mg Documented by: Benzonatate (Benzonatate 100 Mg Cap) 100 mg PO TID PRN PRN Reason: COUGH Calcium Acetate (Calcium Acetate 667 Mg Tab) 1,334 mg PO TIDWM [facility] Last Admin: 01/11/22 18:02 Dose: 1,334 mg Documented by: Carvedilol (Carvedilol 25 Mg Tab) 25 mg PO BID 6AM 6PM [facility] Last Admin: 01/11/22 18:02 Dose: 25 mg Documented by: Cholecalciferol (Vitamin D 5,000 Unit Cap) 5,000 unit PO DAILY [facility] Last Admin: 01/11/22 09:00 Dose: 5,000 unit Documented by: Gabapentin (Gabapentin 300 Mg Cap) 300 mg PO BID [facility] Last Admin: 01/11/22 09:02 Dose: 300 mg Documented by: Heparin Sodium (Porcine) (Heparin 1,000 Unit/Ml Vial) 4,000 unit IV EVERY HD PRN PRN Reason: DIALYSIS CATHETER CARE Last Admin: 01/10/22 18:03 Dose: 4,000 unit Documented by: Hydralazine HCl (Hydralazine Hcl 20 Mg/Ml Vial) 10 mg IV Q6HP PRN PRN Reason: Titrate to SBP (MUST DEFINE) Last Admin: 01/10/22 08:08 Dose: 10 mg Documented by: Hydralazine HCl (Hydralazine Hcl 25 Mg Tablet) 50 mg PO BID [facility] Last Admin: 01/11/22 09:04 Dose: 50 mg Documented by: Ceftriaxone Sodium 1,000 mg/ (Sodium Chloride) 50 mls @ 100 mls/hr IVPB Q12HR [facility]; Protocol Last Admin: 01/11/22 09:03 Dose: 50 mls Documented by: Vancomycin HCl 500 mg/ Sodium (Chloride) 100 mls @ 100 mls/hr IVPB AFTER EACH DIALYSIS [facility] Insulin Human Regular (Insulin -Regular Human 50 Unit/0.5 Ml Ml) 0 unit SQ ACHS [facility]; Protocol Last Admin: 01/11/22 11:30 Dose: Not Given Documented by: Ipratropium [place] (Ipratropium Brom 0.5mg/2.5ml) 0.5 mg NEB [id number] PRN PRN Reason: SHORTNESS OF BREATH Lactobacillus Acidoph/Bulgaricus (Lactobacillus/Acidophilus Tab) 1 tab PO TID [facility] Last Admin: 01/11/22 13:00 Dose: 1 tab Documented by: Metoprolol Tartrate (Metoprolol Tar 25 Mg Tab) 25 mg PO BID 6AM 6PM [facility] Last Admin: 01/11/22 18:01 Dose: 25 mg Documented by: Nifedipine (Nifedipine Xl 30 Mg Tablet) 30 mg PO DAILY [facility] Last Admin: 01/11/22 09:02 Dose: 30 mg Documented by: Ondansetron HCl (Ondansetron 4 Mg/2 Ml Vial) 4 mg IV Q6HP PRN PRN Reason: NAUSEA / VOMITING Ramipril (Ramipril 5 Mg Cap) 10 mg PO BEDTIME [facility] Sodium Chloride (Flush Normal Saline 10 Ml) 10 ml IV BID [facility] Last Admin: 01/11/22 09:00 Dose: 10 ml Documented by: Thiamine HCl (Thiamine Hcl 100 Mg Tablet) 100 mg PO DAILY [facility] Last Admin: 01/11/22 09:05 Dose: 100 mg Documented by: Tizanidine HCl (Tizanidine 4 Mg Tablet) 4 mg PO BID PRN PRN Reason: muscle cramps Microbiology Results 01/08/22 18:00 Blood - Blood Aerobic Blood Culture - Preliminary 01/08/22 18:00 Blood - Blood Blood Culture Gram Stain - Final 01/08/22 18:00 Blood - Blood Anaerobic Blood Culture - Preliminary 01/08/22 18:00 Blood - Blood Gram Stain - Final 01/08/22 17:50 Blood - Blood Aerobic Blood Culture - Preliminary 01/08/22 17:50 Blood - Blood Blood Culture Gram Stain - Final 01/08/22 17:50 Blood - Blood Anaerobic Blood Culture - Preliminary 01/08/22 17:50 Blood - Blood Gram Stain - Final Assessment/ Plan: Nephrology No dyspnea No chest pain Fatigue and weakness No acute events overnight Vitals, medications, blood work and imaging reviewed in the chart. NAD. NCAT. MMM. Neck supple. Normal respiratory effort. RRR. Abd ND. No C/C/E. No rash. AAO. Normal speech. ESRD -HD TIW HTN with CKD/ CHF -Continue Ramipril Diastolic CHF, chronic -Low sodium diet -Continue Coreg DM II with CKD -RISS Moderate malnutrition -Start Nepro Anemia in CKD -Retacrit X1 CKD MBD -Continue Phoslo
[2022-01-11] MEDS: ramipriL 5 MG CAP PO SCH (20:12)
[2022-01-11] MEDS: ATORVASTATIN 40 MG TAB PO SCH (20:13)
[2022-01-11] MEDS: NEPRO SHAKE 237 ML CAN PO SCH (20:13)
[2022-01-12 03:58] LABS: Absolute Lymphocytes (CBC) 1.3 K/uL (0.7-4.9); Hematocrit 24.6 % (36.0-45.0); Lymphocytes % 15.9 % (15.3-44.8); MPV 9.2 fL (7.6-11.3); RBC Red Blood Cell Count 2.59 M/uL (3.86-4.86)
[2022-01-12 04:27] LABS: Albumin 2.2 g/dL (3.4-5.0); Bilirubin Total 0.4 mg/dL (0.2-1.0); Magnesium 2.1 mg/dL (1.8-2.4); Potassium 3.4 mmol/L (3.5-5.1); Protein, Total 6.5 g/dL (6.4-8.2)
[2022-01-12] MEDS: METOPROLOL TAR 25 MG TAB PO SCH ×3 (05:04→18:27)
[2022-01-12] MEDS: carvediloL 25 MG TAB PO SCH ×3 (05:05→18:27)
[2022-01-12] MEDS: INSULIN -REGULAR HUMAN 50 UNIT/0.5 ML ML SQ SCH ×4 (07:30→21:00)
[2022-01-12] MEDS: CALCIUM ACETATE 667 MG TAB PO SCH ×3 (08:00→18:26)
--- NOTE | 2022-01-12 08:38 | RAD REPORT ---
EXAM DESCRIPTION: NM - Rest Stress Cardiac Imaging - 01/12/2022 8:20 am CLINICAL HISTORY: Chest pain COMPARISON: None. TECHNIQUE: The patient was administered 10.7 mCi of Tc 99m Sestamibi prior to resting SPECT imaging of the heart. The patient was then administered 31.7 mCi of Tc 99m Sestamibi following exercise or ph armacologic stress. Multiplanar SPECT images were reviewed. FINDINGS: The end diastolic volume is 123 ml, the end systolic volume is 53 ml, and the ejection fra ction is 57 %. No stress-induced ischemic changes are present. Moderately large area of decreased activity is presen t in the mid and apex portion of the inferior wall. This is more prominent on the rest sequencing. Sc arring and diaphragm attenuation artifact are both possibilities. Correlation can be made with EKG an d history. IMPRESSION: No stress-induced ischemic change. Moderately large fixed defect inferior wall from scarring, attenuation artifact or a combination. End-diastolic volume measured 123 mL with a 57% EF.
[2022-01-12] MEDS: CEFTRIAXONE 1,000 MG in NA CHLORIDE 0.9% 50 ML IVPB SCH ×2 (09:00→20:51)
[2022-01-12] MEDS: NEPRO SHAKE 237 ML CAN PO SCH ×3 (09:00→20:52)
[2022-01-12] MEDS: NIFEDIPINE XL 30 MG TABLET PO SCH (09:00)
[2022-01-12] MEDS ORDERED: EPOETIN ALFA 10,000 UNIT/ML VIAL SQ SCH (09:00)
[2022-01-12] MEDS: HYDRALAZINE HCL 25 MG TABLET PO SCH ×2 (09:00→20:50)
[2022-01-12] MEDS: ASPIRIN EC 81 MG TAB PO SCH (10:05)
[2022-01-12] MEDS: VITAMIN D 5,000 UNIT CAP PO SCH (10:05)
[2022-01-12] MEDS: LACTOBACILLUS/ACIDOPHILUS TAB PO SCH ×3 (10:05→20:48)
[2022-01-12] MEDS: THIAMINE HCL 100 MG TABLET PO SCH (10:05)
[2022-01-12] MEDS: GABAPENTIN 300 MG CAP PO SCH ×2 (10:05→20:52)
--- NOTE | 2022-01-12 10:39 | TREADPHA ---
DX: CHEST PAIN Date of Study: 01/12/2022 Ht: 5' 5 " Wt: 127 lb 0 oz Consulting Physician: HANNAH MEDICATIONS: ASPIRIN, LIPITOR, COREG, NEURONTIN, LOPRESSOR, APRESOLINE HISTORY: 61 YEAR OLD FEMALE WITH COMPLAINTS OF CHEST PAIN. HISTORY OF CONGESTIVE HEART FAILURE, HYPERTENSION, END STAGE RENAL FAILURE, CHRONIC PAIN, PATIENT SMOKES DAILY, OCCASIONAL DRINKER, HISTORY OF DRUG USE. PHYSICIAL EXAMINATION: RESTING B.P.: 160/78 RESTING H.R.: 68 RESTING EKG: NORMAL RHYTHM, LEFT VENTRICULAR HYPERTROPHY PROTOCOL: LEXISCAN EXERCISE TIME: 3:30 B.P. AT PEAK STRESS: 118/58 IMPRESSION: LEXISCAN INJECTED, FOLLOWED BY CARDIOLITE PER PROTOCOL. SEE NUCLEAR MEDICINE REPORT. NO SUPRAVENTRICULAR OR VENTRICULAR TACHYCARDIA. NO PREMATURE VENTRICULAR COMPLEXES. PATIENT REPORTS NO CHEST PAIN.
--- NOTE | 2022-01-12 11:11 | RAD REPORT ---
EXAM DESCRIPTION: RAD - Chest Single View - 01/12/2022 10:40 am CLINICAL HISTORY: f/u opacities, ?pneumonia COMPARISON: Portable January 08 TECHNIQUE: AP portable chest image was obtained 01/12/2022 10:40 am . FINDINGS: Lung volumes are similar to comparison. There has been significant reduction in the alveol ar edema or infiltrate pattern since the prior examination. Minimal airspace opacification remains. I nterstitial markings are prominent but decreased. Cardiac silhouette has significantly decreased and there is complete or near complete resolution of t he vascular engorgement. Trachea is midline. Double-lumen dialysis catheter is in place, unchanged. No pneumothorax or enlarging pleural effusion. No acute bony abnormality seen. No acute aortic findi ngs suspected. IMPRESSION: Substantial reduction in the CHF/ volume overload pattern since prior imaging. No focal airspace disease to suspect bacterial pneumonia.
--- NOTE | 2022-01-12 11:39 | P.PN ---
Subjective Date of Service: 01/12/22 Chief Complaint: dizziness, weakness Patient seen and examined at bedside, daughter was present. We discussed patient's plan of care. Patient will likely need to be sent out for replacement of dialysis catheter due to recurrent positive blood cultures. Review of Systems 10-point ROS is otherwise unremarkable Physical Examination - Vital Signs Temperature: 97.9 F Blood Pressure: 138/65 Pulse: 69 Respirations: 15 Pulse Ox (%): 96 - Studies Laboratory Last Values WBC 8.50 K/uL (4.3-10.9) 01/08/22 14:49 RBC 2.86 M/uL (3.86-4.86) L 01/08/22 14:49 Hgb 9.2 g/dL (12.0-15.0) L 01/08/22 14:49 Hct 27.8 % (36.0-45.0) L 01/08/22 14:49 MCV 97.4 fL (80-100) 01/08/22 14:49 MCH 32.3 pg (27.0-35.0) 01/08/22 14:49 MCHC 33.1 g/dL (32.0-36.0) 01/08/22 14:49 RDW 14.8 % (12.1-15.2) 01/08/22 14:49 Plt Count 125 K/uL (152-406) L 01/08/22 14:49 MPV 8.5 fL (7.6-11.3) 01/08/22 14:49 Neutrophils % 81.4 % (41.7-73.7) H 01/08/22 14:49 Lymphocytes % 9.9 % (15.3-44.8) L 01/08/22 14:49 Monocytes % 8.4 % (3.3-12.3) 01/08/22 14:49 Eosinophils % 0.0 % (0-4.4) 01/08/22 14:49 Basophils % 0.3 % (0-1.3) 01/08/22 14:49 Absolute Neutrophils 6.9 K/uL (1.8-8.0) 01/08/22 14:49 Absolute Lymphocytes 0.8 K/uL (0.7-4.9) 01/08/22 14:49 Absolute Monocytes 0.7 K/uL (0.1-1.3) 01/08/22 14:49 Absolute Eosinophils 0.0 K/uL (0-0.5) 01/08/22 14:49 Absolute Basophils 0.0 K/uL (0-0.5) 01/08/22 14:49 PT 13.2 SECONDS (9.5-12.5) H 01/08/22 14:49 INR 1.15 01/08/22 14:49 Sodium 139 mmol/L (136-145) 01/08/22 14:49 Potassium 3.1 mmol/L (3.5-5.1) L 01/08/22 14:49 Chloride 101 mmol/L (98-107) 01/08/22 14:49 Carbon Dioxide 30 mmol/L (21-32) 01/08/22 14:49 BUN 29 mg/dL (7-18) H 01/08/22 14:49 Creatinine 6.12 mg/dL (0.55-1.3) H* 01/08/22 14:49 Estimated GFR 8 mL/min (=/>90) L 01/08/22 14:49 Glucose 190 mg/dL (74-106) H 01/08/22 14:49 Lactic Acid 1.3 mmol/L (0.4-2.0) 01/08/22 18:00 Calcium 9.7 mg/dL (8.5-10.1) 01/08/22 14:49 Magnesium 2.1 mg/dL (1.8-2.4) D 01/08/22 14:49 Total Bilirubin 1.0 mg/dL (0.2-1.0) 01/08/22 14:49 Direct Bilirubin 0.6 mg/dL (0-0.2) H 01/08/22 14:49 AST 47 U/L (15-37) H 01/08/22 14:49 ALT 13 U/L (12-78) 01/08/22 14:49 Alkaline Phosphatase 69 U/L (45-117) 01/08/22 14:49 Troponin I High Sens 5974.70 pg/mL (<58.9) H* 01/08/22 14:49 NT-Pro-B Natriuret Pep 742513 pg/mL (<125) H 01/08/22 14:49 Serum Total Protein 7.2 g/dL (6.4-8.2) 01/08/22 14:49 Albumin 2.8 g/dL (3.4-5.0) L 01/08/22 14:49 Globulin 4.4 g/dL (2.3-3.5) H 01/08/22 14:49 Albumin/Globulin Ratio 0.6 (1.1-1.8) L 01/08/22 14:49 Lipase 64 U/L (73-393) L 01/08/22 14:49 SARS-CoV-2 Rap RNA(RT-PCR) Positive (NEGATIVE) A 01/08/22 14:49 Microbiology Data (last 24 hrs): 01/08/22 17:50 Blood - Blood Blood Culture Gram Stain - Final 01/08/22 17:50 Blood - Blood Gram Stain - Final Assessment And Plan - Plan Physical exam: General: In no apparent distress HEENT: Atraumatic Neck: Supple Respiratory: Other (Bibasilar crackles/rales) Cardiovascular: No edema, Regular rate/rhythm Capillary refill: <2 Seconds Gastrointestinal: Normal bowel sounds, No tenderness Musculoskeletal: No clubbing, No swelling Integumentary: No rashes, No breakdown, No significant lesion Conclusions/Impression: Antibiotics Vancomycin: urrent Rocephin: 01/09current Levaquin: Assessment/plan Gram-positive bacteremia Blood cultures obtained on 01/08 grew nonbeta-hemolytic strep and 4/4 bottles. Awaiting speciation and susceptibility. Repeat blood cultures obtained on 01/11 positive. Recommend reordering additional blood cultures in 48 hours. Source of infection remains unclear, chest x-ray showed mild CHF/volume overload pattern with significant reduction on repeat imaging. PanCT scan showed no acute findings. Patient has right tunneled dialysis catheter, this could be the source of infection if infected. Due to recurrent bacteremia recommend replacing tunneled dialysis catheter. Continue broad-spectrum empiric coverage with vancomycin and Rocephin until susceptibility is obtained. COVID-19 PNA Patient currently utilizing 2 L of oxygen via nasal cannula. Is out of window for remdesivir therapy. Continue to monitor closely. AMS ESRD on HD CHF Hypertension -Medical management per primary team Care discussed with Dr. Eren Bettencourt for consultation.
[2022-01-12] MEDS ORDERED: NA CHLORIDE 0.9% IV SCH (15:00)
[2022-01-12] MEDS ORDERED: VANCOMYCIN IV SCH (15:00)
--- NOTE | 2022-01-12 18:26 | P.PN ---
Date of Service: 01/12/22 Subjective: No acute events overnight per nursing staff Patient without any new complaints Mentation seems to wax and wane ROS: 10 point ROS as noted above, otherwise negative Physical exam GEN: NAD, appears sleepy HEENT: Normal conjunctiva, sclera anicteric CV: Regular rate and rhythm, no edema Pulm: Nonlabored respirations on RA ABD: Soft, nontender, nondistended Integumentary: No erythema, no tenderness of right dialysis catheter Neuro: Normal speech when interacting with nursing staff Problem List Acute hypoxemic respiratory failure secondary to COVID-19 pneumonia Gram-positive bacteremia NSTEMI CAD CHF ESRD on HD DM 2 Pharmacologic stress tests ordered for today, delayed from yesterday Wean oxygen as tolerated Nephrology following, on dialysis Patient with 4/4 blood cultures growing gram-positive bacteria Repeat blood cultures remain positive for gram-positive bacteria ID consulted, continue IV vancomycin and Rocephin patient will need HD cath removed, line holiday, and replacement, daughter ok with staying here Continue IV vancomycin and Rocephin for now Unclear on source, central line is possibility, no surrounding infectious signs General surgery consulted Code: Full Dispo: Anticipate DC home in ~2-3 days Time Spent Managing Pts Care (In Minutes): 35
--- NOTE | 2022-01-12 19:42 | P.PN ---
Date of Service: 01/12/22 Vital Signs Temp Pulse Resp BP Pulse Ox 97.9 F 73 18 142/63 H 99 01/12/22 16:00 01/12/22 18:27 01/12/22 16:00 01/12/22 18:27 01/12/22 16:00 Medications Acetaminophen (Acetaminophen 500 Mg Tab) 500 mg PO Q4HP PRN PRN Reason: Pain scale 2-4 (Mild) Last Admin: 01/10/22 21:52 Dose: 500 mg Documented by: Albuterol Sulfate (Albuterol 2.5 Mg/3 Ml Neb Erma) 2.5 mg NEB [id number] PRN PRN Reason: SHORTNESS OF BREATH Aspirin (Aspirin Ec 81 Mg Tab) 81 mg PO DAILY [facility] Last Admin: 01/12/22 10:05 Dose: 81 mg Documented by: Atorvastatin Calcium (Atorvastatin 40 Mg Tab) 40 mg PO BEDTIME [facility] Last Admin: 01/11/22 20:13 Dose: 40 mg Documented by: Benzonatate (Benzonatate 100 Mg Cap) 100 mg PO TID PRN PRN Reason: COUGH Calcium Acetate (Calcium Acetate 667 Mg Tab) 1,334 mg PO TIDWM [facility] Last Admin: 01/12/22 18:26 Dose: 1,334 mg Documented by: Carvedilol (Carvedilol 25 Mg Tab) 25 mg PO BID 6AM 6PM [facility] Last Admin: 01/12/22 18:27 Dose: 25 mg Documented by: Cholecalciferol (Vitamin D 5,000 Unit Cap) 5,000 unit PO DAILY [facility] Last Admin: 01/12/22 10:05 Dose: 5,000 unit Documented by: Enteral Nutritional Formula (Nepro Shake 237 Ml Can) 237 ml PO TID [facility] Last Admin: 01/12/22 14:00 Dose: Not Given Documented by: Gabapentin (Gabapentin 300 Mg Cap) 300 mg PO BID [facility] Last Admin: 01/12/22 10:05 Dose: 300 mg Documented by: Heparin Sodium (Porcine) (Heparin 1,000 Unit/Ml Vial) 4,000 unit IV EVERY HD PRN PRN Reason: DIALYSIS CATHETER CARE Last Admin: 01/10/22 18:03 Dose: 4,000 unit Documented by: Heparin Sodium (Porcine) (Heparin 1,000 Unit/Ml Vial) 3,000 unit IV EVERY HD [facility] Stop: 01/15/22 11:01 Hydralazine HCl (Hydralazine Hcl 20 Mg/Ml Vial) 10 mg IV Q6HP PRN PRN Reason: Titrate to SBP (MUST DEFINE) Last Admin: 01/10/22 08:08 Dose: 10 mg Documented by: Hydralazine HCl (Hydralazine Hcl 25 Mg Tablet) 50 mg PO BID [facility] Last Admin: 01/12/22 09:00 Dose: Not Given Documented by: Ceftriaxone Sodium 1,000 mg/ (Sodium Chloride) 50 mls @ 100 mls/hr IVPB Q12HR [facility]; Protocol Last Admin: 01/12/22 09:00 Dose: Not Given Documented by: Vancomycin HCl 1 gm/ Sodium (Chloride) 100 mls @ 100 mls/hr IV AFTER EACH DIALYSIS [facility] Insulin Human Regular (Insulin -Regular Human 50 Unit/0.5 Ml Ml) 0 unit SQ ACHS [facility]; Protocol Last Admin: 01/12/22 16:30 Dose: Not Given Documented by: Ipratropium [place] (Ipratropium Brom 0.5mg/2.5ml) 0.5 mg NEB [id number] PRN PRN Reason: SHORTNESS OF BREATH Lactobacillus Acidoph/Bulgaricus (Lactobacillus/Acidophilus Tab) 1 tab PO TID [facility] Last Admin: 01/12/22 14:00 Dose: Not Given Documented by: Metoprolol Tartrate (Metoprolol Tar 25 Mg Tab) 25 mg PO BID 6AM 6PM [facility] Last Admin: 01/12/22 18:27 Dose: 25 mg Documented by: Nifedipine (Nifedipine Xl 30 Mg Tablet) 30 mg PO DAILY [facility] Last Admin: 01/12/22 09:00 Dose: Not Given Documented by: Ondansetron HCl (Ondansetron 4 Mg/2 Ml Vial) 4 mg IV Q6HP PRN PRN Reason: NAUSEA / VOMITING Ramipril (Ramipril 5 Mg Cap) 10 mg PO BEDTIME [facility] Last Admin: 01/11/22 20:12 Dose: 10 mg Documented by: Sodium Chloride (Flush Normal Saline 10 Ml) 10 ml IV BID [facility] Last Admin: 01/12/22 09:00 Dose: 10 ml Documented by: Thiamine HCl (Thiamine Hcl 100 Mg Tablet) 100 mg PO DAILY [facility] Last Admin: 01/12/22 10:05 Dose: 100 mg Documented by: Tizanidine HCl (Tizanidine 4 Mg Tablet) 4 mg PO BID PRN PRN Reason: muscle cramps Microbiology Results 01/08/22 17:50 Blood - Blood Aerobic Blood Culture - Preliminary 01/08/22 17:50 Blood - Blood Blood Culture Gram Stain - Final 01/08/22 17:50 Blood - Blood Anaerobic Blood Culture - Preliminary 01/08/22 17:50 Blood - Blood Gram Stain - Final 01/08/22 18:00 Blood - Blood Aerobic Blood Culture - Preliminary 01/08/22 18:00 Blood - Blood Blood Culture Gram Stain - Final 01/08/22 18:00 Blood - Blood Anaerobic Blood Culture - Preliminary 01/08/22 18:00 Blood - Blood Gram Stain - Final Assessment/ Plan: Nephrology No dyspnea No chest pain Fatigue and weakness No acute events overnight Vitals, medications, blood work and imaging reviewed in the chart. NAD. NCAT. MMM. Neck supple. Normal respiratory effort. RRR. Abd ND. No C/C/E. No rash. AAO. Normal speech. ESRD -HD TIW Bacteremia Possible infected CVC -Plan for a CVC exchange with a line holiday HTN with CKD/ CHF -Continue Ramipril Diastolic CHF, chronic -Low sodium diet -Continue Coreg DM II with CKD -RISS Moderate malnutrition -Continue Nepro Anemia in CKD -Retacrit TIW CKD MBD -Continue Phoslo
[2022-01-12] MEDS: ATORVASTATIN 40 MG TAB PO SCH (20:48)
[2022-01-12] MEDS: DULERA 200/5 (MOMETASONE/FORMOTEROL) INHALER IH SCH ×2 (20:52→21:00)
[2022-01-12] MEDS: ramipriL 5 MG CAP PO SCH (21:04)
[2022-01-12] MEDS ORDERED: EPOETIN ALFA-EPBX 10,000 UNIT/ML VIAL ONE (21:09)
[2022-01-13 03:26] LABS: Absolute Lymphocytes (CBC) 1.5 K/uL (0.7-4.9); Lymphocytes % 17.7 % (15.3-44.8); MPV 9.3 fL (7.6-11.3); RBC Red Blood Cell Count 2.82 M/uL (3.86-4.86)
[2022-01-13 03:40] LABS: Albumin 2.3 g/dL (3.4-5.0); Bilirubin Total 0.4 mg/dL (0.2-1.0); Magnesium 2.3 mg/dL (1.8-2.4); Potassium 3.5 mmol/L (3.5-5.1); Protein, Total 6.8 g/dL (6.4-8.2)
[2022-01-13] MEDS: METOPROLOL TAR 25 MG TAB PO SCH ×2 (06:00→17:29)
[2022-01-13] MEDS: carvediloL 25 MG TAB PO SCH ×2 (06:00→17:28)
--- NOTE | 2022-01-13 06:40 | P.PN ---
Date of Service: 01/13/22 Subjective: Somewhat difficult to arouse this morning Denies any pain/discomfort, no shortness of breath Plan for removal of HD catheter today ROS: 10 point ROS as noted above, otherwise negative Physical exam GEN: NAD, slow to wake up HEENT: Normal conjunctiva, sclera anicteric CV: Regular rate and rhythm, no edema Pulm: Nonlabored respirations on 2L NC, slight diminished at bases, clear ABD: Soft, nontender, nondistended Integumentary: No erythema, no tenderness of right dialysis catheter Problem List Acute hypoxemic respiratory failure secondary to COVID-19 pneumonia Acute metabolic encephalopathy secondary to bacteremia Gram-positive bacteremia NSTEMI CAD CHF ESRD on HD DM 2 Pharmacologic stress tests negative Wean oxygen as tolerated Nephrology following, on dialysis 03/01 blood cx: Enterococcus Repeat blood cultures positive ID consulted, recommended continue IV vancomycin and Rocephin. Going to review sensitivities and change accordingly patient will need HD cath removed, line holiday, and replacement, daughter ok with staying here General surgery consulted, plan for removal today, send cath tip for culture Unclear on source, central line is possibility, no surrounding infectious signs Code: Full Dispo: Anticipate DC home >3days Time Spent Managing Pts Care (In Minutes): 35
[2022-01-13] MEDS: INSULIN -REGULAR HUMAN 50 UNIT/0.5 ML ML SQ SCH ×4 (07:30→21:00)
[2022-01-13] MEDS: CALCIUM ACETATE 667 MG TAB PO SCH ×3 (08:00→17:00)
[2022-01-13] MEDS: HYDRALAZINE HCL 20 MG/ML VIAL IV PRN (08:36)
[2022-01-13] MEDS: CEFTRIAXONE 1,000 MG in NA CHLORIDE 0.9% 50 ML IVPB SCH (08:36)
[2022-01-13] MEDS: VITAMIN D 5,000 UNIT CAP PO SCH (09:00)
[2022-01-13] MEDS: LACTOBACILLUS/ACIDOPHILUS TAB PO SCH ×3 (09:00→20:50)
[2022-01-13] MEDS: GABAPENTIN 300 MG CAP PO SCH ×2 (09:00→20:50)
[2022-01-13] MEDS: HYDRALAZINE HCL 25 MG TABLET PO SCH ×2 (09:00→20:50)
[2022-01-13] MEDS: THIAMINE HCL 100 MG TABLET PO SCH (09:00)
[2022-01-13] MEDS: ASPIRIN EC 81 MG TAB PO SCH (09:00)
[2022-01-13] MEDS: NEPRO SHAKE 237 ML CAN PO SCH ×3 (09:00→21:00)
[2022-01-13] MEDS: NIFEDIPINE XL 30 MG TABLET PO SCH (09:00)
[2022-01-13] MEDS ORDERED: NA CHLORIDE 0.9% 500 ML ONE (09:26)
--- NOTE | 2022-01-13 10:04 | CON ---
Reason For Service: Request removal of a hemodialysis catheter. History Of Present Illness: This is the case of a 61-year-old patient with multiple medical problems , congestive heart failure, and renal failure and chronic hemodialysis, admitted to the hospital with change in mental status. Workup for the bacteremia was found with no specific areas to pinpoint, ex cept the patient has a long-term dialysis catheter on the right chest, and the primary doctor and ER physician believed it could be the source of infection. So, the removal of the catheter was requeste d. I understand I have not seen this patient in the past, but I understand by the ER physician this placement of hemodialysis catheter has been difficult to pass out to the point that it has been done by interventional radiologist last few times in [place]. I do not have the details of that center. Allergies: PENICILLINS. Medications: Reviewed. Past Medical History: As above. Social History: The patient used to smoke. Past Surgical History: Includes hemodialysis catheter placement, knee surgery, AV graft. Family History: Hypertension and diabetes. Review of Systems: Unable to be obtained. The patient is awake, but does not give much information. Physical Examination: HEENT: Pupils are equal, reactive. Neck: Supple. Chest: Bilateral breath sounds. On the right chest, there is a hemodialysis catheter coming out. I do not see any evidence of cellulitis in that area. The catheter seems to be intact, coming off the skin. Extremities: Good capillary refill. Laboratory Data: WBC count is 8.6, hemoglobin 8.8 with platelets of 197. INR is 1.15. Potassium 3. 5, bicarb is 26. Assessment: A 61-year-old patient with bacteremia of unknown origin. The primary doctor and Infecti ous Disease working on the case. As part of the workup, the removal of hemodialysis catheter was req uested. The benefits, alternatives, and risks fully explained which include, but not limited to infe ction, bleeding, damage to adjacent structures, anesthesia complication, PE, SC, and even . We are going to go back into the history of this patient. Apparently, she is having some issues in the past, put hemodialysis catheter by another surgeons and also interventional. We are glad to help in this urgency and remove the catheter. We are then going to try to analyze the case to see if the cat heter can be placed in this institution. We will address that issue when we get there. In the meant lavelle, at least we can remove this catheter to help in the differential diagnosis of bacteremia. HM/MODL Voice ID: [id number] Report ID: [id number]
[2022-01-13] MEDS ORDERED: propofoL 200 MG/20 ML VIAL IV ONE (11:41)
[2022-01-13] MEDS ORDERED: LIDOCAINE 1% MPF 5 ML VIAL ONE (11:41)
[2022-01-13] MEDS ORDERED: MIDAZOLAM HCL 2 MG/2 ML INJ ONE (11:41)
[2022-01-13] MEDS ORDERED: FENTANYL CITR 100 MCG/2 ML ONE (11:41)
[2022-01-13] MEDS: LIDOCAINE 1% MPF 30 ML VIAL ONE ×2 (11:42→12:35)
--- NOTE | 2022-01-13 12:50 | P.BOP ---
Preoperative diagnosis: ESRD Postoperative diagnosis: same Primary procedure: REmoval of cuffed HD catheter Estimated blood loss: <5cc Specimen: tip culture, plus catheter Findings: as above Anesthesia: MAC Complications: None Transferred to: Recovery Room Condition: Good
[2022-01-13] MEDS: DIPHENHYDRAMINE 50 MG/ML VIAL IV SCH ×2 (14:04→20:50)
[2022-01-13] MEDS: AMPICILLIN SODIUM 2 GM in NA CHLORIDE 0.9% 100 ML IVPB SCH ×2 (14:27→20:49)
[2022-01-13] MEDS: EPOETIN ALFA 10,000 UNIT/ML VIAL SQ SCH (17:24)
[2022-01-13] MEDS: CEFTRIAXONE 2,000 MG in NA CHLORIDE 0.9% 50 ML IV SCH (17:24)
--- NOTE | 2022-01-13 20:04 | P.PN ---
Date of Service: 01/13/22 Vital Signs Temp Pulse Resp BP Pulse Ox 98.4 F 70 16 130/65 99 01/13/22 16:00 01/13/22 16:00 01/13/22 13:10 01/13/22 16:00 01/13/22 08:00 Medications Acetaminophen (Acetaminophen 500 Mg Tab) 500 mg PO Q4HP PRN PRN Reason: Pain scale 2-4 (Mild) Last Admin: 01/10/22 21:52 Dose: 500 mg Documented by: Albuterol Sulfate (Albuterol 2.5 Mg/3 Ml Neb Erma) 2.5 mg NEB [id number] PRN PRN Reason: SHORTNESS OF BREATH Aspirin (Aspirin Ec 81 Mg Tab) 81 mg PO DAILY [facility] Last Admin: 01/13/22 09:00 Dose: Not Given Documented by: Atorvastatin Calcium (Atorvastatin 40 Mg Tab) 40 mg PO BEDTIME [facility] Last Admin: 01/12/22 20:48 Dose: 40 mg Documented by: Benzonatate (Benzonatate 100 Mg Cap) 100 mg PO TID PRN PRN Reason: COUGH Calcium Acetate (Calcium Acetate 667 Mg Tab) 1,334 mg PO TIDWM [facility] Last Admin: 01/13/22 17:00 Dose: Not Given Documented by: Carvedilol (Carvedilol 25 Mg Tab) 25 mg PO BID 6AM 6PM [facility] Last Admin: 01/13/22 17:28 Dose: Not Given Documented by: Cholecalciferol (Vitamin D 5,000 Unit Cap) 5,000 unit PO DAILY [facility] Last Admin: 01/13/22 09:00 Dose: Not Given Documented by: Diphenhydramine HCl (Diphenhydramine 50 Mg/Ml Vial) 25 mg IV Q12HR [facility] Last Admin: 01/13/22 14:04 Dose: 25 mg Documented by: Enteral Nutritional Formula (Nepro Shake 237 Ml Can) 237 ml PO TID [facility] Last Admin: 01/13/22 14:00 Dose: Not Given Documented by: Epoetin Tommy (Epoetin Tommy 10,000 Unit/Ml Vial) 10,000 unit SQ M,W,F [facility] Last Admin: 01/13/22 17:24 Dose: 10,000 unit Documented by: Gabapentin (Gabapentin 300 Mg Cap) 300 mg PO BID [facility] Last Admin: 01/13/22 09:00 Dose: Not Given Documented by: Heparin Sodium (Porcine) (Heparin 1,000 Unit/Ml Vial) 4,000 unit IV EVERY HD PRN PRN Reason: DIALYSIS CATHETER CARE Last Admin: 01/10/22 18:03 Dose: 4,000 unit Documented by: Heparin Sodium (Porcine) (Heparin 1,000 Unit/Ml Vial) 3,000 unit IV EVERY HD [facility] Stop: 01/15/22 11:01 Hydralazine HCl (Hydralazine Hcl 20 Mg/Ml Vial) 10 mg IV Q6HP PRN PRN Reason: Titrate to SBP (MUST DEFINE) Last Admin: 01/13/22 08:36 Dose: 10 mg Documented by: Hydralazine HCl (Hydralazine Hcl 25 Mg Tablet) 50 mg PO BID [facility] Last Admin: 01/13/22 09:00 Dose: Not Given Documented by: Ampicillin Sodium 2 gm/ Sodium (Chloride) 100 mls @ 200 mls/hr IVPB Q12HR [facility] Last Admin: 01/13/22 14:27 Dose: 100 mls Documented by: Ceftriaxone Sodium 2,000 mg/ (Sodium Chloride) 50 mls @ 100 mls/hr IV Q24H [facility]; Protocol Last Admin: 01/13/22 17:24 Dose: 50 mls Documented by: Insulin Human Regular (Insulin -Regular Human 50 Unit/0.5 Ml Ml) 0 unit SQ ACHS [facility]; Protocol Last Admin: 01/13/22 16:30 Dose: Not Given Documented by: Ipratropium [place] (Ipratropium Brom 0.5mg/2.5ml) 0.5 mg NEB [id number] PRN PRN Reason: SHORTNESS OF BREATH Lactobacillus Acidoph/Bulgaricus (Lactobacillus/Acidophilus Tab) 1 tab PO TID [facility] Last Admin: 01/13/22 14:00 Dose: Not Given Documented by: Metoprolol Tartrate (Metoprolol Tar 25 Mg Tab) 25 mg PO BID 6AM 6PM [facility] Last Admin: 01/13/22 17:29 Dose: Not Given Documented by: Nifedipine (Nifedipine Xl 30 Mg Tablet) 30 mg PO DAILY [facility] Last Admin: 01/13/22 09:00 Dose: Not Given Documented by: Ondansetron HCl (Ondansetron 4 Mg/2 Ml Vial) 4 mg IV Q6HP PRN PRN Reason: NAUSEA / VOMITING Ramipril (Ramipril 5 Mg Cap) 10 mg PO BEDTIME [facility] Last Admin: 01/12/22 21:04 Dose: 10 mg Documented by: Sodium Chloride (Flush Normal Saline 10 Ml) 10 ml IV BID [facility] Last Admin: 01/13/22 09:00 Dose: 10 ml Documented by: Thiamine HCl (Thiamine Hcl 100 Mg Tablet) 100 mg PO DAILY [facility] Last Admin: 01/13/22 09:00 Dose: Not Given Documented by: Tizanidine HCl (Tizanidine 4 Mg Tablet) 4 mg PO BID PRN PRN Reason: muscle cramps Microbiology Results 01/08/22 18:00 Blood - Blood Aerobic Blood Culture - Preliminary Enterococcus Faecalis 01/08/22 18:00 Blood - Blood Blood Culture Gram Stain - Final 01/08/22 18:00 Blood - Blood Anaerobic Blood Culture - Preliminary 01/08/22 18:00 Blood - Blood Gram Stain - Final 01/08/22 17:50 Blood - Blood Aerobic Blood Culture - Preliminary Enterococcus Faecalis 01/08/22 17:50 Blood - Blood Blood Culture Gram Stain - Final 01/08/22 17:50 Blood - Blood Anaerobic Blood Culture - Preliminary 01/08/22 17:50 Blood - Blood Gram Stain - Final Assessment/ Plan: Nephrology No dyspnea No chest pain Fatigue and weakness No acute events overnight Vitals, medications, blood work and imaging reviewed in the chart. NAD. NCAT. MMM. Neck supple. Normal respiratory effort. RRR. Abd ND. No C/C/E. No rash. AAO. Normal speech. ESRD -Next HD Tuesday Bacteremia Possible infected CVC -Plan for a CVC removal today HTN with CKD/ CHF -Continue Ramipril Diastolic CHF, chronic -Low sodium diet -Continue Coreg DM II with CKD -RISS Moderate malnutrition -Continue Nepro Anemia in CKD -Retacrit TIW CKD MBD -Continue Phoslo
[2022-01-13] MEDS: ramipriL 5 MG CAP PO SCH (20:50)
[2022-01-13] MEDS: DULERA 200/5 (MOMETASONE/FORMOTEROL) INHALER IH SCH (20:51)
[2022-01-13] MEDS: ATORVASTATIN 40 MG TAB PO SCH (21:00)
--- NOTE | 2022-01-14 00:01 | OP ---
Date of Procedure: 01/13/2022 Surgeon: Stef Merritt MD Preoperative Diagnosis: End-stage renal disease. Postoperative Diagnosis: End-stage renal disease. Procedure: Removal of cuffed hemodialysis catheter. Estimated Blood Loss: Less than 5 cc. Specimen: The tip of the catheter was sent for culture. Also, we sent the rest of the catheter for identification. Findings: As above. Anesthesia: MAC plus local. Indication: This is the case of a 61-year-old patient with bacteremia of unknown origin. As part of the workup for bacteremia, request was to remove the catheters from her body understanding the diffi culty of putting the catheters back. After looking for many options, they do not have any option oth er than remove the catheter, so I was called to remove the catheter. This was placed in [facility] months ago. The patient's family fully explained the benefits, alternatives, and risks of proced ure, which include, but not limited to infection, bleeding, damage to adjacent structures, anesthesia complication, PE, SD, and even . She also understands this may not relieve any symptoms and mo st likely she will require that dialysis catheter again. Procedure In Detail: The patient was brought to the operating room, placed in supine position. Anes thesia was done without complication. A time-out was called. Right neck and chest were prepped and draped in the usual sterile fashion. We proceeded to make an incision in the right upper chest and n hunter area to identify the cuff. The cuff was reduced from the subcutaneous tissue and the catheter wa s split making sure we hold the proximal and distal. We pulled the distal and put pressure over that area and sent the tip for culture. Then, we put the proximal part. We closed the subcutaneous tiss ue with 3-0 chromic, the entry site of the catheter left to close by secondary intention. The patien t tolerated the procedure well. No bleeding. The patient was sent to recovery in stable condition. HM/MODL Voice ID: [id number] Report ID: [id number]
[2022-01-14] MEDS: METOPROLOL TAR 25 MG TAB PO SCH ×2 (05:05→18:00)
[2022-01-14] MEDS: carvediloL 25 MG TAB PO SCH ×2 (05:06→18:00)
--- NOTE | 2022-01-14 06:31 | P.PN ---
Date of Service: 01/14/22 Subjective: left sided weakness today ROS: 10 point ROS as noted above, otherwise negative Physical exam GEN: NAD, slow to wake up HEENT: Normal conjunctiva, sclera anicteric CV: Regular rate and rhythm, no edema Pulm: Non-labored respirations on 2L NC, slight diminished at bases, clear ABD: Soft, nontender, nondistended Integumentary: No erythema, no tenderness of right dialysis catheter Neuro: flaccid LUE, doesn't withdraw to pain, AOx1 Problem List Acute hypoxemic respiratory failure secondary to COVID-19 pneumonia Acute metabolic encephalopathy secondary to bacteremia Gram-positive bacteremia NSTEMI CAD CHF ESRD on HD DM 2 Pharmacologic stress tests negative Wean oxygen as tolerated Nephrology following, on dialysis 03/01 blood cx: Enterococcus Repeat blood cultures positive ID consulted, continue antibiotics HD cath removed on 01/13 for line holiday plan for replacement in next day or two culture tip for Code: Full Dispo: Anticipate DC home >3days Time Spent Managing Pts Care (In Minutes): 35
[2022-01-14] MEDS: INSULIN -REGULAR HUMAN 50 UNIT/0.5 ML ML SQ SCH ×4 (07:30→20:41)
[2022-01-14] MEDS: CALCIUM ACETATE 667 MG TAB PO SCH ×3 (08:00→17:00)
[2022-01-14] MEDS: GABAPENTIN 300 MG CAP PO SCH ×2 (08:01→20:39)
[2022-01-14] MEDS: NEPRO SHAKE 237 ML CAN PO SCH ×3 (08:01→20:41)
[2022-01-14] MEDS: THIAMINE HCL 100 MG TABLET PO SCH (08:01)
[2022-01-14] MEDS: NIFEDIPINE XL 30 MG TABLET PO SCH (08:01)
[2022-01-14] MEDS: HYDRALAZINE HCL 25 MG TABLET PO SCH ×2 (08:01→20:41)
[2022-01-14] MEDS: VITAMIN D 5,000 UNIT CAP PO SCH (08:01)
[2022-01-14] MEDS: LACTOBACILLUS/ACIDOPHILUS TAB PO SCH ×3 (08:01→20:39)
[2022-01-14] MEDS: ASPIRIN EC 81 MG TAB PO SCH (08:01)
[2022-01-14] MEDS: HYDRALAZINE HCL 20 MG/ML VIAL IV PRN (08:05)
[2022-01-14] MEDS: DULERA 200/5 (MOMETASONE/FORMOTEROL) INHALER IH SCH ×3 (08:06→20:47)
[2022-01-14] MEDS: DIPHENHYDRAMINE 50 MG/ML VIAL IV SCH ×2 (08:29→20:39)
[2022-01-14 08:55] LABS: Albumin 2.1 g/dL (3.4-5.0); Magnesium 2.3 mg/dL (1.8-2.4); Phosphorus 3.1 mg/dL (2.5-4.9); Potassium 3.7 mmol/L (3.5-5.1)
[2022-01-14] MEDS: AMPICILLIN SODIUM 2 GM in NA CHLORIDE 0.9% 100 ML IVPB SCH ×2 (09:04→21:55)
--- NOTE | 2022-01-14 10:25 | P.PN ---
Date of Service: 01/14/22 Vital Signs Temp Pulse Resp BP Pulse Ox 98.3 F 81 20 191/80 H 98 01/14/22 08:00 01/14/22 08:00 01/14/22 08:00 01/14/22 08:00 01/14/22 08:00 Medications Acetaminophen (Acetaminophen 500 Mg Tab) 500 mg PO Q4HP PRN PRN Reason: Pain scale 2-4 (Mild) Last Admin: 01/10/22 21:52 Dose: 500 mg Documented by: Albuterol Sulfate (Albuterol 2.5 Mg/3 Ml Neb Erma) 2.5 mg NEB [id number] PRN PRN Reason: SHORTNESS OF BREATH Aspirin (Aspirin Ec 81 Mg Tab) 81 mg PO DAILY [facility] Last Admin: 01/14/22 08:01 Dose: Not Given Documented by: Atorvastatin Calcium (Atorvastatin 40 Mg Tab) 40 mg PO BEDTIME [facility] Last Admin: 01/13/22 21:00 Dose: 40 mg Documented by: Benzonatate (Benzonatate 100 Mg Cap) 100 mg PO TID PRN PRN Reason: COUGH Calcium Acetate (Calcium Acetate 667 Mg Tab) 1,334 mg PO TIDWM [facility] Last Admin: 01/14/22 08:00 Dose: Not Given Documented by: Carvedilol (Carvedilol 25 Mg Tab) 25 mg PO BID 6AM 6PM [facility] Last Admin: 01/14/22 05:06 Dose: 25 mg Documented by: Cholecalciferol (Vitamin D 5,000 Unit Cap) 5,000 unit PO DAILY [facility] Last Admin: 01/14/22 08:01 Dose: Not Given Documented by: Diphenhydramine HCl (Diphenhydramine 50 Mg/Ml Vial) 25 mg IV Q12HR [facility] Last Admin: 01/14/22 08:29 Dose: 25 mg Documented by: Enteral Nutritional Formula (Nepro Shake 237 Ml Can) 237 ml PO TID [facility] Last Admin: 01/14/22 08:01 Dose: Not Given Documented by: Epoetin Tommy (Epoetin Tommy 10,000 Unit/Ml Vial) 10,000 unit SQ M,W,F [facility] Last Admin: 01/13/22 17:24 Dose: 10,000 unit Documented by: Gabapentin (Gabapentin 300 Mg Cap) 300 mg PO BID [facility] Last Admin: 01/14/22 08:01 Dose: Not Given Documented by: Heparin Sodium (Porcine) (Heparin 1,000 Unit/Ml Vial) 4,000 unit IV EVERY HD PRN PRN Reason: DIALYSIS CATHETER CARE Last Admin: 01/10/22 18:03 Dose: 4,000 unit Documented by: Heparin Sodium (Porcine) (Heparin 1,000 Unit/Ml Vial) 3,000 unit IV EVERY HD [facility] Stop: 01/15/22 11:01 Hydralazine HCl (Hydralazine Hcl 20 Mg/Ml Vial) 10 mg IV Q6HP PRN PRN Reason: Titrate to SBP (MUST DEFINE) Last Admin: 01/14/22 08:05 Dose: 10 mg Documented by: Hydralazine HCl (Hydralazine Hcl 25 Mg Tablet) 50 mg PO BID [facility] Last Admin: 01/14/22 08:01 Dose: Not Given Documented by: Ampicillin Sodium 2 gm/ Sodium (Chloride) 100 mls @ 200 mls/hr IVPB Q12HR [facility] Last Admin: 01/14/22 09:04 Dose: 100 mls Documented by: Ceftriaxone Sodium 2,000 mg/ (Sodium Chloride) 50 mls @ 100 mls/hr IV Q24H [facility]; Protocol Last Admin: 01/13/22 17:24 Dose: 50 mls Documented by: Insulin Human Regular (Insulin -Regular Human 50 Unit/0.5 Ml Ml) 0 unit SQ ACHS [facility]; Protocol Last Admin: 01/14/22 07:30 Dose: Not Given Documented by: Ipratropium [place] (Ipratropium Brom 0.5mg/2.5ml) 0.5 mg NEB [id number] PRN PRN Reason: SHORTNESS OF BREATH Lactobacillus Acidoph/Bulgaricus (Lactobacillus/Acidophilus Tab) 1 tab PO TID [facility] Last Admin: 01/14/22 08:01 Dose: Not Given Documented by: Metoprolol Tartrate (Metoprolol Tar 25 Mg Tab) 25 mg PO BID 6AM 6PM [facility] Last Admin: 01/14/22 05:05 Dose: 25 mg Documented by: Nifedipine (Nifedipine Xl 30 Mg Tablet) 30 mg PO DAILY [facility] Last Admin: 01/14/22 08:01 Dose: Not Given Documented by: Ondansetron HCl (Ondansetron 4 Mg/2 Ml Vial) 4 mg IV Q6HP PRN PRN Reason: NAUSEA / VOMITING Ramipril (Ramipril 5 Mg Cap) 10 mg PO BEDTIME [facility] Last Admin: 01/13/22 20:50 Dose: 10 mg Documented by: Sodium Chloride (Flush Normal Saline 10 Ml) 10 ml IV BID [facility] Last Admin: 01/14/22 08:06 Dose: 10 ml Documented by: Thiamine HCl (Thiamine Hcl 100 Mg Tablet) 100 mg PO DAILY [facility] Last Admin: 01/14/22 08:01 Dose: Not Given Documented by: Tizanidine HCl (Tizanidine 4 Mg Tablet) 4 mg PO BID PRN PRN Reason: muscle cramps Microbiology Results 01/08/22 17:50 Blood - Blood Aerobic Blood Culture - Final Enterococcus Faecalis 01/08/22 17:50 Blood - Blood Blood Culture Gram Stain - Final 01/08/22 17:50 Blood - Blood Anaerobic Blood Culture - Final Enterococcus Faecalis 01/08/22 17:50 Blood - Blood Gram Stain - Final 01/08/22 18:00 Blood - Blood Aerobic Blood Culture - Final Enterococcus Faecalis 01/08/22 18:00 Blood - Blood Blood Culture Gram Stain - Final 01/08/22 18:00 Blood - Blood Anaerobic Blood Culture - Final Enterococcus Faecalis 01/08/22 18:00 Blood - Blood Gram Stain - Final Assessment/ Plan: Nephrology No dyspnea No chest pain Fatigue and weakness. Waxing and waning mental status. No acute events overnight Vitals, medications, blood work and imaging reviewed in the chart. NAD. NCAT. MMM. Neck supple. Normal respiratory effort. RRR. Abd ND. No C/C/E. No rash. AAO. Normal speech. ESRD -Next HD Tuesday Bacteremia Possible infected CVC -Plan for a CVC replacement on Tuesday HTN with CKD/ CHF -Continue Ramipril Diastolic CHF, chronic -Low sodium diet -Continue Coreg DM II with CKD -RISS Moderate malnutrition -Continue Nepro Anemia in CKD -Retacrit TIW CKD MBD -Continue Phoslo Toxic metabolic encephalopathy due to multiple brain infarcts Mitral vegetation -Continue abx Case reviewed with Dr. Leon. The MRI Head demonstrated multiple brain infarcts concerning for a cardioembolic source. The echocardiogram demonstrated a large mitral vegetation. Dr. Leon will discuss the plan of care with the daughter. EXAM DESCRIPTION: MRI - Brain Wo Cont - 01/14/2022 12:01 pm CLINICAL HISTORY: r/o stroke, left sided weakness COMPARISON: Head Brain Wo Cont dated 01/09/2022 TECHNIQUE: Sagittal T1-weighted images were obtained along with PD/heavily T2- weighted and T2-FLAIR images. Axial DWI and ADC mapping sequences were also obtained along with coronal heavily T2-weighted images were obtained. FINDINGS: Multiple bilateral infarcts identified, the largest in the body of the caudate on the right measuring 17 millimeters. There are multiple in the basal ganglia and alfredo radiata as well as some small cortical infarcts in the frontal lobes. Small infarct in the right lobe of the cerebellum. Advanced chronic small vessel ischemic changes. Cerebral atrophy. No mass effect or midline shift. Mastoid air cells and paranasal sinuses are clear. IMPRESSION: Bilateral small cortical, deep white matter, basal ganglia, and cerebellar infarcts involving multiple vascular distributions. This could be secondary to cardioembolic source.
--- NOTE | 2022-01-14 12:20 | RAD REPORT ---
EXAM DESCRIPTION: MRI - Brain Wo Cont - 01/14/2022 12:01 pm CLINICAL HISTORY: r/o stroke, left sided weakness COMPARISON: Head Brain Wo Cont dated 01/09/2022 TECHNIQUE: Sagittal T1-weighted images were obtained along with PD/heavily T2-weighted and T2-FLAIR images. Axial DWI and ADC mapping sequences were also obtained along with coronal heavily T2-weighted images were obtained. FINDINGS: Multiple bilateral infarcts identified, the largest in the body of the caudate on the righ t measuring 17 millimeters. There are multiple in the basal ganglia and alfredo radiata as well as brandie e small cortical infarcts in the frontal lobes. Small infarct in the right lobe of the cerebellum. Ad vanced chronic small vessel ischemic changes. Cerebral atrophy. No mass effect or midline shift. Mastoid air cells and paranasal sinuses are clear. IMPRESSION: Bilateral small cortical, deep white matter, basal ganglia, and cerebellar infarcts invo lving multiple vascular distributions. This could be secondary to cardioembolic source. Communicated to Dr. Leon by Dr. Sinclair at 1215 on 01/14/22
[2022-01-14 14:54] LABS: Absolute Lymphocytes (CBC) 1.7 K/uL (0.7-4.9); Hematocrit 27.4 % (36.0-45.0); MPV 8.3 fL (7.6-11.3); RBC Red Blood Cell Count 2.85 M/uL (3.86-4.86)
[2022-01-14 14:57] LABS: Protime INR 1.01
[2022-01-14 15:52] LABS: Blood Morphology Comment NOT SEEN (NOT SEEN); Platelet Estimate ADEQ; White Blood Cell Scan OK (OK)
[2022-01-14] MEDS: HEPARIN/D5W 25,000 UNIT/500 ML BAG IV SCH (16:12)
[2022-01-14] MEDS: CEFTRIAXONE 2,000 MG in NA CHLORIDE 0.9% 50 ML IV SCH (17:57)
[2022-01-14] MEDS: ATORVASTATIN 40 MG TAB PO SCH (20:40)
[2022-01-14] MEDS ORDERED: levETIRAcetam 500 MG in NA CHLORIDE 0.9% 100 ML IV ONE (21:00)
[2022-01-14] MEDS: ramipriL 5 MG CAP PO SCH (21:00)
[2022-01-14] MEDS ORDERED: levETIRAcetam 250 MG in NA CHLORIDE 0.9% 100 ML IV SCH (21:00)
--- NOTE | 2022-01-14 23:53 | CON ---
Date of Consultation: 01/14/2022 Reason For Consultation: Consultation called because of stroke, likely from the heart with possible endocarditis. History Of Present Illness: Ms. Harris is a 61-year-old right-handed patient with end-stage renal disease on hemodialysis, congestive heart failure, hypertension, was admitted to [facility] on 01/08/2022 with diffuse weakness, confusion, dizziness after dialysis. She appare ntly was found on the floor by her daughter, saying that her legs gave out and she could not get up. She was disoriented, but could understand who she was and that some issues had occurred in terms of weakness in the lower extremities. It should be noted, she was admitted with COVID pneumonias one mo nth prior to her symptoms as described. At [facility] she had mild anemia, hemoglobin 9.2. Creatinine was 6.12. Her CT scan of the head showed [id number] chronic ischemic change, but n o acute change identified. Her trauma series CT scan showed cervical spinal degeneration in the mid region without any acute findings such as fracture, and her CHF findings on imaging was of bilateral atelectasis and trace pulmonary effusion with cardiomegaly. She was diagnosed as a volume overload p attern. She did have dialysis and was making fair progress and fluctuating, when earlier today this is dated , she was with the physical therapist who noted that she could not move the left arm, bu t did move the left leg. At that point, she had not noticed any weakness in the left face. The gilmar ent was evaluated with an MRI that identified a 17 mm acute stroke in the right basal ganglia, alfredo radiata. In addition, there were cortical infarcts in the frontal lobes, and also in the right cere bellum along with advanced chronic small-vessel ischemic disease. The etiology of these was felt to be cardioembolic. Subsequent echocardiogram as reported by reportedly shows cardiac mitral valve veg etation, possibly endocarditis, which may be the source of the patient's cardioembolic events. She w as put on full anticoagulation, renal dosing of antibiotics including Rocephin 2 g every 24 hours, an d again full anticoagulation with heparin, and given Keppra 500 mg with 250 IV twice daily due to the cortical strokes and the risk of seizures. She is also on aspirin 81 mg daily. She was evaluated b y Speech and determined that she had been able to clear thickened liquids with pureed soft mechanical diet. However, at the time of my evaluation, the patient was only attempting to open her eyes, coul d not make a good swallowing effort, just barely moved the right hand, did not move the left upper ex tremity, and I could not get her to move the left or right lower extremity. Past Medical History: As noted, including chronic diastolic CHF, tobacco use, chronic pain. Past Surgical History: AV graft for dialysis, knee surgery. Family History: Diabetes, hypertension, kidney disease in mother. Social History: Reported smoking. No recent alcohol or drug use. Review of Systems: At this point, not able to reliably get a review of systems as the patient is not responding to [employer] questions with verbal answers. Allergies: PENICILLIN. Home Medications: Calcium acetate twice daily, gabapentin 300 mg twice daily, Zanaflex 4 mg twice da neyda as needed. Tessalon Perles 100 mg 3 times daily. Vitamin D3 5000 International Units daily, vit baez B1 thiamine 100 mg daily, Coreg 25 mg twice daily, apresoline 50 mg twice daily. Nifedipine 30 mg daily. Altace 10 mg at bedtime. Physical Examination: Vital Signs: Blood pressure 169/76, pulse 51, temperature 97.9, oxygen saturation 98% on 1 L nasal c annula. General: Ms. Harris is resting in bed. She is in no apparent acute distress. HEENT: She is normocephalic and atraumatic. Sclerae appear anicteric. Oropharynx moist. Neck: Supple. Chest: Shows decreased breath sounds bilaterally. Abdomen: Soft. Extremities: Show mild edema in the lower extremities and mild in the left upper extremity. Neurologic: On cranial nerve exam, she has a decreased nasolabial fold on the left side. She attemp marilyn to open the eyes. They moved equally well, but not further fully assessed. Cranial nerves: On motor examination, 0 movement in the left upper extremity, just mild withdrawal response to left lowe r extremity stimulation. Right upper extremity she did squeeze hand, did not lift her arm off her be d. Her right lower extremity, she did not voluntarily move that, but would withdraw to stimulation. Sensation could not be fully assessed. Coordination could not be assessed, and gait could not be as sessed. Reflexes were absent in upper and lower extremities. Laboratory Studies: White blood cell count 7.5 and hemoglobin 9.0. INR 1.01. Sodium 135, potassium 3.7, chloride 98, carbon dioxide 29, BUN 50, creatinine 8.0, glucose 200, troponin 1 of 3145.9. AST 49, ALT 13, alkaline phosphatase 67. TSH 0.236. COVID-19 test was positive on 01/08/2022. Assessment And Plan: Ms. Harris is a 61-year-old patient with multiple medical problems including e nd-stage renal disease on hemodialysis, likely septic emboli to the heart with vegetation on the hear t, in addition to COVID positivity. The patient's prognosis was discussed with her daughter. Given the fact that she has acute strokes throughout from likely a cardiac source and undergoing vegetation cardiac heart valve, she is at high risk of additional cardioembolic events. She does require likel y heart valve replacement, but that may not be done as an acute case given the risk of worsening stro ke. It was decided that the patient would have more conservative treatment with anticoagulation, ant ibiotics, and antiepileptic medications, along with the possibility of a PEG tube to protect the airw ay and provide nutrition. She may require long-term acute care or at least a facility that can manage her need for IV antibioti cs. At some point, the patient may benefit from evaluation in [place] for the potential for surgical repl acement of her heart valve. At this point, I agree with continuing all medication management as clovis goodman. MARITZA/CHANO Voice ID: [id number] Report ID: [id number]
[2022-01-15 00:55] LABS: Absolute Lymphocytes (CBC) 1.7 K/uL (0.7-4.9); Hematocrit 26.3 % (36.0-45.0); Lymphocytes % 24.8 % (15.3-44.8); MPV 8.3 fL (7.6-11.3); RBC Red Blood Cell Count 2.74 M/uL (3.86-4.86)
[2022-01-15 01:18] LABS: Albumin 2.1 g/dL (3.4-5.0); Bilirubin Total 0.3 mg/dL (0.2-1.0); Magnesium 2.4 mg/dL (1.8-2.4); Potassium 3.5 mmol/L (3.5-5.1); Protein, Total 6.9 g/dL (6.4-8.2)
[2022-01-15] MEDS: METOPROLOL TAR 25 MG TAB PO SCH ×2 (06:21→17:59)
[2022-01-15] MEDS: carvediloL 25 MG TAB PO SCH ×2 (06:21→17:43)
--- NOTE | 2022-01-15 06:30 | P.PN ---
Date of Service: 01/15/22 Subjective: more awake/alert, follows commands not moving LUE ROS: 10 point ROS as noted above, otherwise negative Physical exam GEN: NAD, slow to wake up HEENT: Normal conjunctiva, sclera anicteric CV: Regular rate and rhythm, no edema Pulm: Non-labored respirations on 2L NC, slight diminished at bases, clear ABD: Soft, nontender, nondistended Neuro: flaccid LUE, +sensation in LUE, AAOx2 Problem List multiple acute CVAs Endocarditis, enterobacter Acute hypoxemic respiratory failure secondary to COVID-19 pneumonia Acute metabolic encephalopathy secondary to bacteremia NSTEMI CAD CHF ESRD on HD DM 2 Pharmacologic stress tests negative enterobacter bacteremia with large vegetaion - likely cause of acute CVAs poor prognosis neurology consulted, started anticoagulation, folic acid, sheba family did not want patient transferred to tertiary care center, no valve surgery discussed patient is extremely high risk to continue to form thrombi and lead to more CVAs Nephrology following, on dialysis 03/01 blood cx: Enterococcus Repeat blood cultures pending ID consulted, continue antibiotics HD cath removed on 01/13 for line holiday plan for replacement in a few days no urgent need for dialysis at this time culture tip for culture Code: Full Dispo: hospitalization > 2 days Time Spent Managing Pts Care (In Minutes): 35
--- NOTE | 2022-01-15 07:22 | ECHO ---
HEIGHT: 5 ft 5 in WEIGHT: 127 lb 0 oz DATE OF STUDY: 01/14/[address]: Hayley Quispe 2-DIMENSIONAL: YES M.MODE: YES DOPPLER: YES COLOR FLOW: YES TDS: NO PORTABLE: NO DEFINITY: NO BUBBLE STUDY: NO DIAGNOSIS: RULE OUT CARDIOEMNOLIC STROKE CARDIAC HISTORY: CATHERIZATION: NO SURGERY: NO PROSTHETIC VALVE: NO PACEMAKER: NO MEASUREMENTS (cm) DIASTOLIC (NORMALS) SYSTOLIC (NORMALS) IVSd 1.3 (0.6-1.2) LA Diam 3.1 (1.9-4.0) LVEF 61% LVIDd 4.0 (3.5-5.7) LVIDs 2.7 (2.0-3.5) %FS 32% LVPWd 1.3 (0.6-1.2) Ao Diam 2.5 (2.0-3.7) 2 DIMENSIONAL ASSESSMENT: RIGHT ATRIUM: NORMAL LEFT ATRIUM: NORMAL RIGHT VENTRICLE: NORMAL LEFT VENTRICLE: NORMAL TRICUSPID VALVE: MITRAL VALVE: SEVERE MITRAL ANNULAR CALCIFICATION PULMONIC VALVE: AORTIC VALVE: MODERATLEY CALCIFIED PERICARDIAL EFFUSION: NONE AORTIC ROOT: NORMAL LEFT VENTRICULAR WALL MOTION: NORMAL DOPPLER/COLOR FLOW: SEE BELOW COMMENTS: LARGE 1.9 X 1.3 cm POSTERIOR MITRAL VALVE VEGETATION INDICATING MITRAL VALVE ENDOCARDITIS, NEW SINCE THE LAST ECHO ON 01/11/2022. NORMAL LEFT VENTRICULAR EJECTION FRACTION 55-60%. MILD TRICUSPID AND MITRAL REGURGITATION. TECHNOLOGIST: Aishwarya SHAHID
[2022-01-15] MEDS: INSULIN -REGULAR HUMAN 50 UNIT/0.5 ML ML SQ SCH ×4 (07:30→21:00)
[2022-01-15] MEDS: NEPRO SHAKE 237 ML CAN PO SCH ×3 (09:00→21:00)
[2022-01-15] MEDS: AMPICILLIN SODIUM 2 GM in NA CHLORIDE 0.9% 100 ML IVPB SCH ×2 (10:16→21:00)
[2022-01-15] MEDS: NIFEDIPINE XL 30 MG TABLET PO SCH (10:22)
[2022-01-15] MEDS: HYDRALAZINE HCL 25 MG TABLET PO SCH ×2 (10:23→21:40)
[2022-01-15] MEDS: ASPIRIN EC 81 MG TAB PO SCH (10:23)
[2022-01-15] MEDS: LACTOBACILLUS/ACIDOPHILUS TAB PO SCH ×3 (10:23→21:40)
[2022-01-15] MEDS: GABAPENTIN 300 MG CAP PO SCH ×2 (10:23→21:40)
[2022-01-15] MEDS: CALCIUM ACETATE 667 MG TAB PO SCH ×3 (10:24→17:42)
[2022-01-15] MEDS: DIPHENHYDRAMINE 50 MG/ML VIAL IV SCH ×2 (10:24→21:50)
[2022-01-15] MEDS: THIAMINE HCL 100 MG TABLET PO SCH (10:26)
[2022-01-15] MEDS: VITAMIN D 5,000 UNIT CAP PO SCH (10:26)
[2022-01-15] MEDS: DULERA 200/5 (MOMETASONE/FORMOTEROL) INHALER IH SCH ×2 (11:12→21:00)
[2022-01-15] MEDS: levETIRAcetam 250 MG in NA CHLORIDE 0.9% 100 ML IV SCH ×2 (11:13→21:00)
--- NOTE | 2022-01-15 13:48 | P.PN ---
Subjective Date of Service: 01/15/22 Chief Complaint: dizziness, weakness Patient seen and examined at bedside, stable. Review of Systems 10-point ROS is otherwise unremarkable Physical Examination - Vital Signs Temperature: 96 F Blood Pressure: 183/82 Pulse: 68 Respirations: 19 Pulse Ox (%): 94 - Studies Microbiology 01/08/22 17:50 Blood - Blood Aerobic Blood Culture - Final Enterococcus Faecalis 01/08/22 17:50 Blood - Blood Blood Culture Gram Stain - Final 01/08/22 17:50 Blood - Blood Anaerobic Blood Culture - Final Enterococcus Faecalis 01/08/22 17:50 Blood - Blood Gram Stain - Final 01/08/22 18:00 Blood - Blood Aerobic Blood Culture - Final Enterococcus Faecalis 01/08/22 18:00 Blood - Blood Blood Culture Gram Stain - Final 01/08/22 18:00 Blood - Blood Anaerobic Blood Culture - Final Enterococcus Faecalis 01/08/22 18:00 Blood - Blood Gram Stain - Final Assessment And Plan - Plan Physical exam: General: In no apparent distress HEENT: Atraumatic Neck: Supple Respiratory: Other (Bibasilar crackles/rales) Cardiovascular: No edema, Regular rate/rhythm, systolic murmur Capillary refill: <2 Seconds Gastrointestinal: Normal bowel sounds, No tenderness Musculoskeletal: No clubbing, No swelling Integumentary: No rashes, No breakdown, No significant lesion Conclusions/Impression: Antibiotics Ampicillin: 01/13current Rocephin: 01/09current Vancomycin: Levaquin: Assessment/plan Gram-positive bacteremia Blood cultures obtained on 01/08 grew Enterococcus faecalis in 4/4 bottles. Additional repeat cultures obtained on 01/11 and 01/12 also positive for Enterococcus. Most recent blood cultures obtained on 01/14 show no growth at 24 hours. Source of infection-infected right dialysis catheter. Dialysis catheter was removed on 01/13. Repeat echocardiogram obtained on 01/14 showed large mitral valve vegetation new since 01/11 echo. Brain MRI on 01/14 showed multiple infarcts, likely secondary to septic emboli. Patient will need IV antibiotics for at least 6 weeks. We will attempt to replace dialysis catheter on Tuesday. Currently on dialysis holiday. Continue double coverage with IV Rocephin and ampicillin. Of note patient has left PICC/midline. Unknown when this was plac ed as there is no documentation. Area usually covered by BP cuff. Recommend removing this line. COVID-19 PNA Patient currently utilizing 2 L of oxygen via nasal cannula. Is out of window for remdesivir therapy. Continue to monitor closely. AMS ESRD on HD CHF Hypertension -Medical management per primary team Care discussed with Dr. Jason Thank for consultation.
[2022-01-15] MEDS: CEFTRIAXONE 2,000 MG in NA CHLORIDE 0.9% 50 ML IV SCH (17:44)
[2022-01-15] MEDS: EPOETIN ALFA 10,000 UNIT/ML VIAL SQ SCH (17:52)
[2022-01-15] MEDS: HEPARIN/D5W 25,000 UNIT/500 ML BAG IV SCH (18:24)
--- NOTE | 2022-01-15 20:21 | PN ---
This patient has removed her hemodialysis catheter a few days ago. Culture of the catheter is still negative. I understand patient has new findings in the form of mini strokes. The medical doctors sergey e working on that. I had pending today possible place of a hemodialysis catheter, but in light of th is new findings, did not believe it is necessary to be done today, and so they will work on the medic al issues. She is stable at this moment. They will notify us whenever she is ready to go for a new hemodialysis catheter and will wait until then. RHYS/EDILMAL Voice ID: [id number] Report ID: [id number]
[2022-01-15] MEDS: ramipriL 5 MG CAP PO SCH (21:00)
[2022-01-15] MEDS ORDERED: levETIRAcetam 250 MG in NA CHLORIDE 0.9% 100 ML IV SCH (21:00)
[2022-01-15] MEDS ORDERED: NA CHLORIDE 0.9% 100 ML ONE (21:40)
[2022-01-15] MEDS: ATORVASTATIN 40 MG TAB PO SCH (21:41)
--- NOTE | 2022-01-15 22:02 | P.PN ---
Date of Service: 01/15/22 Vital Signs Temp Pulse Resp BP Pulse Ox 96.8 F 65 13 118/58 L 98 01/15/22 16:00 01/15/22 17:59 01/15/22 16:00 01/15/22 17:59 01/15/22 16:00 Medications Acetaminophen (Acetaminophen 500 Mg Tab) 500 mg PO Q4HP PRN PRN Reason: Pain scale 2-4 (Mild) Last Admin: 01/10/22 21:52 Dose: 500 mg Documented by: Albuterol Sulfate (Albuterol 2.5 Mg/3 Ml Neb Erma) 2.5 mg NEB [id number] PRN PRN Reason: SHORTNESS OF BREATH Aspirin (Aspirin Ec 81 Mg Tab) 81 mg PO DAILY [facility] Last Admin: 01/15/22 10:23 Dose: 81 mg Documented by: Atorvastatin Calcium (Atorvastatin 40 Mg Tab) 40 mg PO BEDTIME [facility] Last Admin: 01/15/22 21:41 Dose: 40 mg Documented by: Benzonatate (Benzonatate 100 Mg Cap) 100 mg PO TID PRN PRN Reason: COUGH Calcium Acetate (Calcium Acetate 667 Mg Tab) 1,334 mg PO TIDWM [facility] Last Admin: 01/15/22 17:42 Dose: 1,334 mg Documented by: Carvedilol (Carvedilol 25 Mg Tab) 25 mg PO BID 6AM 6PM [facility] Last Admin: 01/15/22 17:43 Dose: 25 mg Documented by: Cholecalciferol (Vitamin D 5,000 Unit Cap) 5,000 unit PO DAILY [facility] Last Admin: 01/15/22 10:26 Dose: 5,000 unit Documented by: Diphenhydramine HCl (Diphenhydramine 50 Mg/Ml Vial) 25 mg IV Q12HR [facility] Last Admin: 01/15/22 21:50 Dose: 25 mg Documented by: Enteral Nutritional Formula (Nepro Shake 237 Ml Can) 237 ml PO TID [facility] Last Admin: 01/15/22 21:00 Dose: Not Given Documented by: Epoetin Tommy (Epoetin Tommy 10,000 Unit/Ml Vial) 10,000 unit SQ M,W,F [facility] Last Admin: 01/15/22 17:52 Dose: 10,000 unit Documented by: Gabapentin (Gabapentin 300 Mg Cap) 300 mg PO BID [facility] Last Admin: 01/15/22 21:40 Dose: 300 mg Documented by: Heparin Sodium (Porcine) (Heparin 1,000 Unit/Ml Vial) 4,000 unit IV EVERY HD PRN PRN Reason: DIALYSIS CATHETER CARE Last Admin: 01/10/22 18:03 Dose: 4,000 unit Documented by: Heparin Sodium (Porcine) (Heparin 1,000 Unit/Ml Vial) 0 unit IV PRN PRN PRN Reason: Heparin Re-Bolus Per Protocol Hydralazine HCl (Hydralazine Hcl 20 Mg/Ml Vial) 10 mg IV Q6HP PRN PRN Reason: Titrate to SBP (MUST DEFINE) Last Admin: 01/14/22 08:05 Dose: 10 mg Documented by: Hydralazine HCl (Hydralazine Hcl 25 Mg Tablet) 50 mg PO BID [facility] Last Admin: 01/15/22 21:40 Dose: 50 mg Documented by: Ampicillin Sodium 2 gm/ Sodium (Chloride) 100 mls @ 200 mls/hr IVPB Q12HR [facility] Last Admin: 01/15/22 10:16 Dose: 100 mls Documented by: Ceftriaxone Sodium 2,000 mg/ (Sodium Chloride) 50 mls @ 100 mls/hr IV Q24H [facility]; Protocol Last Admin: 01/15/22 17:44 Dose: 50 mls Documented by: Heparin Sodium/Dextrose (Heparin Drip 25,000 Units/5oo Ml Premix) 25,000 unit in 500 mls @ 0 mls/hr IV UD [facility]; Protocol Last Admin: 01/15/22 18:24 Dose: 500 mls Documented by: Levetiracetam 250 mg/ Sodium (Chloride) 102.5 mls @ 410 mls/hr IV BID [facility] Last Admin: 01/15/22 21:00 Dose: 102.5 mls Documented by: Insulin Human Regular (Insulin -Regular Human 50 Unit/0.5 Ml Ml) 0 unit SQ ACHS [facility]; Protocol Last Admin: 01/15/22 21:00 Dose: Not Given Documented by: Ipratropium [place] (Ipratropium Brom 0.5mg/2.5ml) 0.5 mg NEB [id number] PRN PRN Reason: SHORTNESS OF BREATH Lactobacillus Acidoph/Bulgaricus (Lactobacillus/Acidophilus Tab) 1 tab PO TID [facility] Last Admin: 01/15/22 21:40 Dose: 1 tab Documented by: Metoprolol Tartrate (Metoprolol Tar 25 Mg Tab) 25 mg PO BID 6AM 6PM [facility] Last Admin: 01/15/22 17:59 Dose: 25 mg Documented by: Nifedipine (Nifedipine Xl 30 Mg Tablet) 30 mg PO DAILY [facility] Last Admin: 01/15/22 10:22 Dose: 30 mg Documented by: Ondansetron HCl (Ondansetron 4 Mg/2 Ml Vial) 4 mg IV Q6HP PRN PRN Reason: NAUSEA / VOMITING Ramipril (Ramipril 5 Mg Cap) 10 mg PO BEDTIME [facility] Last Admin: 01/15/22 21:00 Dose: 10 mg Documented by: Sodium Chloride (Flush Normal Saline 10 Ml) 10 ml IV BID [facility] Last Admin: 01/15/22 21:00 Dose: 10 ml Documented by: Thiamine HCl (Thiamine Hcl 100 Mg Tablet) 100 mg PO DAILY [facility] Last Admin: 01/15/22 10:26 Dose: 100 mg Documented by: Tizanidine HCl (Tizanidine 4 Mg Tablet) 4 mg PO BID PRN PRN Reason: muscle cramps Microbiology Results 01/08/22 17:50 Blood - Blood Aerobic Blood Culture - Final Enterococcus Faecalis 01/08/22 17:50 Blood - Blood Blood Culture Gram Stain - Final 01/08/22 17:50 Blood - Blood Anaerobic Blood Culture - Final Enterococcus Faecalis 01/08/22 17:50 Blood - Blood Gram Stain - Final 01/08/22 18:00 Blood - Blood Aerobic Blood Culture - Final Enterococcus Faecalis 01/08/22 18:00 Blood - Blood Blood Culture Gram Stain - Final 01/08/22 18:00 Blood - Blood Anaerobic Blood Culture - Final Enterococcus Faecalis 01/08/22 18:00 Blood - Blood Gram Stain - Final Assessment/ Plan: Nephrology No dyspnea No chest pain Fatigue and weakness. Waxing and waning mental status. No acute events overnight Vitals, medications, blood work and imaging reviewed in the chart. NAD. NCAT. MMM. Neck supple. Normal respiratory effort. RRR. Abd ND. No C/C/E. No rash. AAO. Normal speech. ESRD -HD prn Bacteremia Mitral vegetation -CVC placement prn HTN with CKD/ CHF -Continue Ramipril Diastolic CHF, chronic -Low sodium diet -Continue Coreg DM II with CKD -RISS Moderate malnutrition -Continue Nepro Anemia in CKD -Retacrit TIW CKD MBD -Continue Phoslo Toxic metabolic encephalopathy due to multiple brain infarcts Mitral vegetation -Continue abx Case reviewed with Dr. Leon. EXAM DESCRIPTION: MRI - Brain Wo Cont - 01/14/2022 12:01 pm CLINICAL HISTORY: r/o stroke, left sided weakness COMPARISON: Head Brain Wo Cont dated 01/09/2022 TECHNIQUE: Sagittal T1-weighted images were obtained along with PD/heavily T2- weighted and T2-FLAIR images. Axial DWI and ADC mapping sequences were also obtained along with coronal heavily T2-weighted images were obtained. FINDINGS: Multiple bilateral infarcts identified, the largest in the body of the caudate on the right measuring 17 millimeters. There are multiple in the basal ganglia and alfredo radiata as well as some small cortical infarcts in the frontal lobes. Small infarct in the right lobe of the cerebellum. Advanced chronic small vessel ischemic changes. Cerebral atrophy. No mass effect or midline shift. Mastoid air cells and paranasal sinuses are clear. IMPRESSION: Bilateral small cortical, deep white matter, basal ganglia, and cerebellar infarcts involving multiple vascular distributions. This could be secondary to cardioembolic source.
[2022-01-16 02:16] LABS: Hematocrit 25.8 % (36.0-45.0); MPV 8.2 fL (7.6-11.3)
[2022-01-16 02:33] LABS: Magnesium 2.4 mg/dL (1.8-2.4); Potassium 3.6 mmol/L (3.5-5.1)
[2022-01-16] MEDS: carvediloL 25 MG TAB PO SCH ×2 (05:17→17:05)
[2022-01-16] MEDS: METOPROLOL TAR 25 MG TAB PO SCH ×2 (05:17→17:04)
--- NOTE | 2022-01-16 06:44 | P.PN ---
Date of Service: 01/16/22 Subjective: awake/alert this morning, reports doing "ok" unable to move left hand no new complaints ROS: 10 point ROS as noted above, otherwise negative Physical exam GEN: NAD, AOx2 CV: Regular rate and rhythm, no edema Pulm: Non-labored respirations on 2L NC ABD: Soft, nontender, nondistended Neuro: flaccid LUE, +sensation in LUE, AAOx2, moves b/l lower extremites R > L Problem List multiple acute CVAs Endocarditis, enterobacter Acute hypoxemic respiratory failure secondary to COVID-19 pneumonia Acute metabolic encephalopathy secondary to bacteremia NSTEMI CAD CHF ESRD on HD DM 2 enterobacter bacteremia with large vegetaion - likely cause of acute CVAs poor prognosis neurology consulted, started anticoagulation, folic acid, sheba family did not want patient transferred to tertiary care center, no valve surgery discussed patient is extremely high risk to continue to form thrombi and lead to more CVAs Nephrology following 03/01 blood cx: Enterococcus Repeat blood cultures pending ID consulted, continue antibiotics HD cath removed on 01/13 for line holiday plan for replacement on Tuesday no urgent need for dialysis at this time PICC tip sent for culture Code: Full Dispo: hospitalization > 2 days Time Spent Managing Pts Care (In Minutes): 35
[2022-01-16] MEDS: INSULIN -REGULAR HUMAN 50 UNIT/0.5 ML ML SQ SCH ×4 (07:30→20:51)
[2022-01-16] MEDS: LACTOBACILLUS/ACIDOPHILUS TAB PO SCH ×3 (08:48→20:50)
[2022-01-16] MEDS: GABAPENTIN 300 MG CAP PO SCH ×2 (08:48→20:50)
[2022-01-16] MEDS: ASPIRIN EC 81 MG TAB PO SCH (08:48)
[2022-01-16] MEDS: VITAMIN D 5,000 UNIT CAP PO SCH (08:48)
[2022-01-16] MEDS: THIAMINE HCL 100 MG TABLET PO SCH (08:48)
[2022-01-16] MEDS: HYDRALAZINE HCL 25 MG TABLET PO SCH ×2 (08:48→20:49)
[2022-01-16] MEDS: CALCIUM ACETATE 667 MG TAB PO SCH ×3 (08:48→16:48)
[2022-01-16] MEDS: DIPHENHYDRAMINE 50 MG/ML VIAL IV SCH ×2 (08:49→20:51)
[2022-01-16] MEDS: NIFEDIPINE XL 30 MG TABLET PO SCH (08:49)
[2022-01-16] MEDS: AMPICILLIN SODIUM 2 GM in NA CHLORIDE 0.9% 100 ML IVPB SCH ×2 (08:58→20:48)
[2022-01-16] MEDS: DULERA 200/5 (MOMETASONE/FORMOTEROL) INHALER IH SCH ×3 (08:59→20:51)
[2022-01-16] MEDS: levETIRAcetam 250 MG in NA CHLORIDE 0.9% 100 ML IV SCH ×2 (08:59→20:49)
[2022-01-16] MEDS: NEPRO SHAKE 237 ML CAN PO SCH ×3 (09:00→20:52)
[2022-01-16] MEDS: CEFTRIAXONE 2,000 MG in NA CHLORIDE 0.9% 50 ML IV SCH (16:20)
[2022-01-16] MEDS: HEPARIN/D5W 25,000 UNIT/500 ML BAG IV SCH (19:19)
--- NOTE | 2022-01-16 19:45 | P.PN ---
Date of Service: 01/16/22 Vital Signs Temp Pulse Resp BP Pulse Ox 97 F 71 18 123/61 100 01/16/22 16:00 01/16/22 17:05 01/16/22 16:00 01/16/22 17:05 01/16/22 16:00 Medications Acetaminophen (Acetaminophen 500 Mg Tab) 500 mg PO Q4HP PRN PRN Reason: Pain scale 2-4 (Mild) Last Admin: 01/10/22 21:52 Dose: 500 mg Documented by: Albuterol Sulfate (Albuterol 2.5 Mg/3 Ml Neb Erma) 2.5 mg NEB [id number] PRN PRN Reason: SHORTNESS OF BREATH Atorvastatin Calcium (Atorvastatin 40 Mg Tab) 40 mg PO BEDTIME [facility] Last Admin: 01/15/22 21:41 Dose: 40 mg Documented by: Benzonatate (Benzonatate 100 Mg Cap) 100 mg PO TID PRN PRN Reason: COUGH Calcium Acetate (Calcium Acetate 667 Mg Tab) 1,334 mg PO TIDWM [facility] Last Admin: 01/16/22 16:48 Dose: 1,334 mg Documented by: Carvedilol (Carvedilol 25 Mg Tab) 25 mg PO BID 6AM 6PM [facility] Last Admin: 01/16/22 17:05 Dose: 25 mg Documented by: Cholecalciferol (Vitamin D 5,000 Unit Cap) 5,000 unit PO DAILY [facility] Last Admin: 01/16/22 08:48 Dose: 5,000 unit Documented by: Diphenhydramine HCl (Diphenhydramine 50 Mg/Ml Vial) 25 mg IV Q12HR [facility] Last Admin: 01/16/22 08:49 Dose: 25 mg Documented by: Enteral Nutritional Formula (Nepro Shake 237 Ml Can) 237 ml PO TID [facility] Last Admin: 01/16/22 13:11 Dose: 237 ml Documented by: Epoetin Tommy (Epoetin Tommy 10,000 Unit/Ml Vial) 10,000 unit SQ M,W,F [facility] Last Admin: 01/15/22 17:52 Dose: 10,000 unit Documented by: Gabapentin (Gabapentin 300 Mg Cap) 300 mg PO BID [facility] Last Admin: 01/16/22 08:48 Dose: 300 mg Documented by: Heparin Sodium (Porcine) (Heparin 1,000 Unit/Ml Vial) 0 unit IV PRN PRN PRN Reason: Heparin Re-Bolus Per Protocol Hydralazine HCl (Hydralazine Hcl 20 Mg/Ml Vial) 10 mg IV Q6HP PRN PRN Reason: Titrate to SBP (MUST DEFINE) Last Admin: 01/14/22 08:05 Dose: 10 mg Documented by: Hydralazine HCl (Hydralazine Hcl 25 Mg Tablet) 50 mg PO BID [facility] Last Admin: 01/16/22 08:48 Dose: 50 mg Documented by: Ampicillin Sodium 2 gm/ Sodium (Chloride) 100 mls @ 200 mls/hr IVPB Q12HR [facility] Last Admin: 01/16/22 08:58 Dose: 100 mls Documented by: Ceftriaxone Sodium 2,000 mg/ (Sodium Chloride) 50 mls @ 100 mls/hr IV Q24H [facility]; Protocol Last Admin: 01/16/22 16:20 Dose: 50 mls Documented by: Heparin Sodium/Dextrose (Heparin Drip 25,000 Units/5oo Ml Premix) 25,000 unit in 500 mls @ 0 mls/hr IV UD [facility]; Protocol Last Admin: 01/16/22 19:19 Dose: 500 mls Documented by: Levetiracetam 250 mg/ Sodium (Chloride) 102.5 mls @ 410 mls/hr IV BID [facility] Last Admin: 01/16/22 08:59 Dose: 102.5 mls Documented by: Insulin Human Regular (Insulin -Regular Human 50 Unit/0.5 Ml Ml) 0 unit SQ ACHS [facility]; Protocol Last Admin: 01/16/22 16:22 Dose: Not Given Documented by: Ipratropium [place] (Ipratropium Brom 0.5mg/2.5ml) 0.5 mg NEB [id number] PRN PRN Reason: SHORTNESS OF BREATH Lactobacillus Acidoph/Bulgaricus (Lactobacillus/Acidophilus Tab) 1 tab PO TID [facility] Last Admin: 01/16/22 13:11 Dose: 1 tab Documented by: Metoprolol Tartrate (Metoprolol Tar 25 Mg Tab) 25 mg PO BID 6AM 6PM [facility] Last Admin: 01/16/22 17:04 Dose: 25 mg Documented by: Nifedipine (Nifedipine Xl 30 Mg Tablet) 30 mg PO DAILY [facility] Last Admin: 01/16/22 08:49 Dose: 30 mg Documented by: Ondansetron HCl (Ondansetron 4 Mg/2 Ml Vial) 4 mg IV Q6HP PRN PRN Reason: NAUSEA / VOMITING Ramipril (Ramipril 5 Mg Cap) 10 mg PO BEDTIME [facility] Last Admin: 01/15/22 21:00 Dose: 10 mg Documented by: Sodium Chloride (Flush Normal Saline 10 Ml) 10 ml IV BID [facility] Last Admin: 01/16/22 09:00 Dose: 10 ml Documented by: Thiamine HCl (Thiamine Hcl 100 Mg Tablet) 100 mg PO DAILY [facility] Last Admin: 01/16/22 08:48 Dose: 100 mg Documented by: Tizanidine HCl (Tizanidine 4 Mg Tablet) 4 mg PO BID PRN PRN Reason: muscle cramps Microbiology Results 01/08/22 17:50 Blood - Blood Aerobic Blood Culture - Final Enterococcus Faecalis 01/08/22 17:50 Blood - Blood Blood Culture Gram Stain - Final 01/08/22 17:50 Blood - Blood Anaerobic Blood Culture - Final Enterococcus Faecalis 01/08/22 17:50 Blood - Blood Gram Stain - Final 01/08/22 18:00 Blood - Blood Aerobic Blood Culture - Final Enterococcus Faecalis 01/08/22 18:00 Blood - Blood Blood Culture Gram Stain - Final 01/08/22 18:00 Blood - Blood Anaerobic Blood Culture - Final Enterococcus Faecalis 01/08/22 18:00 Blood - Blood Gram Stain - Final Assessment/ Plan: Nephrology No dyspnea No chest pain Fatigue and weakness. Waxing and waning mental status. No acute events overnight Vitals, medications, blood work and imaging reviewed in the chart. NAD. NCAT. MMM. Neck supple. Normal respiratory effort. RRR. Abd ND. No C/C/E. No rash. AAO. Normal speech. ESRD -HD prn Bacteremia Mitral vegetation/ Endocarditis -CVC placement prn -Continue Abx HTN with CKD/ CHF -Continue Ramipril Diastolic CHF, chronic -Low sodium diet -Continue Coreg DM II with CKD -RISS Moderate malnutrition -Continue Nepro Anemia in CKD -Retacrit TIW CKD MBD -Continue Phoslo Toxic metabolic encephalopathy due to multiple brain infarcts Mitral vegetation/ Endocarditis -Continue abx Case reviewed with Dr. Leon. EXAM DESCRIPTION: MRI - Brain Wo Cont - 01/14/2022 12:01 pm CLINICAL HISTORY: r/o stroke, left sided weakness COMPARISON: Head Brain Wo Cont dated 01/09/2022 TECHNIQUE: Sagittal T1-weighted images were obtained along with PD/heavily T2- weighted and T2-FLAIR images. Axial DWI and ADC mapping sequences were also obtained along with coronal heavily T2-weighted images were obtained. FINDINGS: Multiple bilateral infarcts identified, the largest in the body of the caudate on the right measuring 17 millimeters. There are multiple in the basal ganglia and alfredo radiata as well as some small cortical infarcts in the frontal lobes. Small infarct in the right lobe of the cerebellum. Advanced chronic small vessel ischemic changes. Cerebral atrophy. No mass effect or midline shift. Mastoid air cells and paranasal sinuses are clear. IMPRESSION: Bilateral small cortical, deep white matter, basal ganglia, and cerebellar infarcts involving multiple vascular distributions. This could be secondary to cardioembolic source.
[2022-01-16] MEDS: ramipriL 5 MG CAP PO SCH (20:49)
[2022-01-16] MEDS: ATORVASTATIN 40 MG TAB PO SCH (20:49)
[2022-01-17 04:19] LABS: Absolute Lymphocytes (CBC) 1.4 K/uL (0.7-4.9); Hematocrit 25.6 % (36.0-45.0); Lymphocytes % 20.1 % (15.3-44.8); MPV 8.2 fL (7.6-11.3); RBC Red Blood Cell Count 2.65 M/uL (3.86-4.86)
[2022-01-17 04:36] LABS: Magnesium 2.4 mg/dL (1.8-2.4); Potassium 3.8 mmol/L (3.5-5.1)
--- NOTE | 2022-01-17 06:23 | P.PN ---
Date of Service: 01/17/22 Subjective: No acute events overnight No significant changes Patient remains very tired appearing, answers questions slowly No change in function of the left arm/hand. Does not think she has any new loss of function/sensation anywhere else since yesterday ROS: 10 point ROS as noted above, otherwise negative Physical exam GEN: NAD, AOx2, tired appearing CV: Regular rate and rhythm, no edema Pulm: Non-labored respirations on 2L NC ABD: Soft, nontender, nondistended Neuro: flaccid LUE, +sensation in LUE, AAOx2, moves b/l lower extremites R > L Problem List multiple acute CVAs Endocarditis, Enterococcus Acute hypoxemic respiratory failure secondary to COVID-19 pneumonia Acute metabolic encephalopathy secondary to bacteremia NSTEMI CAD CHF ESRD on HD DM 2 Enterococcus bacteremia with large vegetaion - likely cause of acute CVAs poor prognosis neurology consulted, started anticoagulation, folic acid, keppra. Patient has remained stable After further discussion with neurology, risk outweighs the benefit of continuing on anticoagulation, will discontinue family did not want patient transferred to tertiary care center, no valve surgery discussed patient is extremely high risk to continue to form thrombi and lead to more CVAs Nephrology following 03/01 blood cx: Enterococcus, repeat cultures without growth since dialysis line removed ID consulted, continue antibiotics HD cath removed on 01/13 for line holiday plan for replacement tomorrow PICC tip sent for culture Code: Full Dispo: hospitalization > 2 days Time Spent Managing Pts Care (In Minutes): 35
[2022-01-17] MEDS: METOPROLOL TAR 25 MG TAB PO SCH ×2 (06:30→16:58)
[2022-01-17] MEDS: carvediloL 25 MG TAB PO SCH ×2 (06:30→16:58)
[2022-01-17] MEDS ORDERED: NA CHLORIDE 0.9% 0 ML ONE ×2 (07:21)
[2022-01-17] MEDS: INSULIN -REGULAR HUMAN 50 UNIT/0.5 ML ML SQ SCH ×4 (07:30→20:34)
[2022-01-17] MEDS: GABAPENTIN 300 MG CAP PO SCH ×2 (08:43→20:32)
[2022-01-17] MEDS: VITAMIN D 5,000 UNIT CAP PO SCH (08:43)
[2022-01-17] MEDS: DIPHENHYDRAMINE 50 MG/ML VIAL IV SCH ×2 (08:43→20:32)
[2022-01-17] MEDS: LACTOBACILLUS/ACIDOPHILUS TAB PO SCH ×3 (08:43→20:32)
[2022-01-17] MEDS: CALCIUM ACETATE 667 MG TAB PO SCH ×3 (08:43→16:58)
[2022-01-17] MEDS: levETIRAcetam 250 MG in NA CHLORIDE 0.9% 100 ML IV SCH ×2 (08:43→20:33)
[2022-01-17] MEDS: NEPRO SHAKE 237 ML CAN PO SCH ×3 (08:44→20:35)
[2022-01-17] MEDS: HYDRALAZINE HCL 25 MG TABLET PO SCH ×2 (08:44→20:35)
[2022-01-17] MEDS: AMPICILLIN SODIUM 2 GM in NA CHLORIDE 0.9% 100 ML IVPB SCH ×2 (08:44→20:34)
[2022-01-17] MEDS: DULERA 200/5 (MOMETASONE/FORMOTEROL) INHALER IH SCH ×2 (08:44→21:00)
[2022-01-17] MEDS: THIAMINE HCL 100 MG TABLET PO SCH (08:44)
[2022-01-17] MEDS: NIFEDIPINE XL 30 MG TABLET PO SCH (08:45)
[2022-01-17] MEDS: CEFTRIAXONE 2,000 MG in NA CHLORIDE 0.9% 50 ML IV SCH (16:57)
[2022-01-17] MEDS: ramipriL 5 MG CAP PO SCH (20:32)
[2022-01-17] MEDS: ATORVASTATIN 40 MG TAB PO SCH (20:34)
[2022-01-18] MEDS: METOPROLOL TAR 25 MG TAB PO SCH ×2 (06:10→16:36)
[2022-01-18] MEDS: carvediloL 25 MG TAB PO SCH ×2 (06:10→16:35)
--- NOTE | 2022-01-18 06:23 | P.PN ---
Date of Service: 01/18/22 Subjective: No significant changes. Stable Patient awakes, answers questions appropriately. Lethargic at times Told her daughter she feels the medication is making her feel more like this way ROS: 10 point ROS as noted above, otherwise negative Physical exam GEN: NAD, AOx2, tired appearing CV: Regular rate and rhythm, no edema Pulm: Non-labored respirations on 2L NC ABD: Soft, nontender, nondistended Neuro: flaccid LUE, +sensation in LUE, AAOx2, moves b/l lower extremites R > L Problem List multiple acute CVAs Endocarditis, Enterococcus Acute hypoxemic respiratory failure secondary to COVID-19 pneumonia Acute metabolic encephalopathy secondary to bacteremia NSTEMI CAD CHF ESRD on HD DM 2 Enterococcus bacteremia with large vegetaion - likely cause of acute CVAs poor prognosis neurology consulted, started anticoagulation, folic acid, keppra. Patient has remained stable Decrease dose of Keppra to see if patient will wake more After further discussion with neurology, risk outweighs the benefit of continuing on anticoagulation, discontinued on 01/17 family did not want patient transferred to [facility], no valve surgery, no plans for PEG. Patient stated "hell no", when asked about PEG tube discussed patient is extremely high risk to continue to form thrombi and lead to more CVAs Nephrology following 03/01 blood cx: Enterococcus, repeat cultures without growth since dialysis line removed ID consulted, continue antibiotics HD cath removed on 01/13 for line holiday, catheter tip positive for Enterococcus as well plan for replacement tomorrow Code: Full Dispo: hospitalization > 2 days Discussed with daughter, continue with full code. Patient stated "hell no" when daughter asked her about possible feeding tube. Patient tolerating 50 to 75% of meals, needs a significant amount of time for assistance with meals. Daughter does not want patient transferred to [facility] at this time, no plans for PEG tube. Okay/wants dialysis catheter placed Time Spent Managing Pts Care (In Minutes): 35
[2022-01-18 07:02] LABS: Absolute Lymphocytes (CBC) 1.5 K/uL (0.7-4.9); Hematocrit 29.8 % (36.0-45.0); Lymphocytes % 17.5 % (15.3-44.8); MPV 7.8 fL (7.6-11.3); RBC Red Blood Cell Count 3.07 M/uL (3.86-4.86)
[2022-01-18 07:23] LABS: Albumin 2.2 g/dL (3.4-5.0); Bilirubin Total 0.4 mg/dL (0.2-1.0); Magnesium 2.5 mg/dL (1.8-2.4); Phosphorus 4.7 mg/dL (2.5-4.9); Protein, Total 7.6 g/dL (6.4-8.2); Uric Acid 9.9 mg/dL (2.6-6.0)
[2022-01-18] MEDS: INSULIN -REGULAR HUMAN 50 UNIT/0.5 ML ML SQ SCH ×4 (07:30→20:17)
[2022-01-18] MEDS: AMPICILLIN SODIUM 2 GM in NA CHLORIDE 0.9% 100 ML IVPB SCH ×2 (07:44→20:20)
[2022-01-18] MEDS: DIPHENHYDRAMINE 50 MG/ML VIAL IV SCH ×2 (07:47→20:19)
[2022-01-18] MEDS: levETIRAcetam 250 MG in NA CHLORIDE 0.9% 100 ML IV SCH (07:47)
[2022-01-18] MEDS: CALCIUM ACETATE 667 MG TAB PO SCH ×3 (08:00→16:34)
[2022-01-18] MEDS: HYDRALAZINE HCL 25 MG TABLET PO SCH ×2 (08:46→20:20)
[2022-01-18] MEDS: DULERA 200/5 (MOMETASONE/FORMOTEROL) INHALER IH SCH ×2 (08:48→20:18)
[2022-01-18] MEDS: LACTOBACILLUS/ACIDOPHILUS TAB PO SCH ×3 (08:48→20:18)
[2022-01-18] MEDS: NEPRO SHAKE 237 ML CAN PO SCH ×3 (08:48→20:19)
[2022-01-18] MEDS: NIFEDIPINE XL 30 MG TABLET PO SCH ×2 (08:48→20:19)
[2022-01-18] MEDS: THIAMINE HCL 100 MG TABLET PO SCH (08:48)
[2022-01-18] MEDS: VITAMIN D 5,000 UNIT CAP PO SCH (08:48)
[2022-01-18] MEDS: GABAPENTIN 300 MG CAP PO SCH ×2 (08:48→20:19)
[2022-01-18] MEDS: HYDRALAZINE HCL 20 MG/ML VIAL IV PRN (11:31)
--- NOTE | 2022-01-18 11:46 | PN ---
Date of Progress Note: 01/18/2022 Diagnosis: Renal failure. Subjective: This is the case of a 61-year-old patient with history of renal failure, also on anticoa gulation for multiple strokes, and bacteremia. The timing for the hemodialysis catheter has been dec ided by the primary doctor and also the renal doctor. We discussed the case today. They want me to most likely do it tomorrow if clinically she continued on the same route. They are stopping the hepa rin drip today. They do not think it is going to need anymore. Physical Examination: Neck: Supple. Chest: Clear. Plan: I talked to the family member today, some of the coworkers have a phone number. They were abl e to track her on the cell phone and I was able to discuss with her the pros and cons of this cathete r with benefits, alternatives, and risks, which include, but not limited to infection, bleeding, magalie ge to adjacent structures, anesthesia complication, pneumothorax, IL, and even . They understoo d that the best in this case with never to put the hemodialysis catheter, but I do not think it is go ing to be possible, but they were trying to delay a little bit the best they can to leave some time t o that blood to clean up from that bacteremia since it may be a contaminant for the new catheter. I believe by tomorrow they are going to give the clearance, so we once again discussed with the family the benefits, alternatives, and risks and plan for tomorrow at 9 o'clock if medically indicated. If it need some more time, then it will be decided by them. RHYS/CHANO Voice ID: [id number] Report ID: [id number]
--- NOTE | 2022-01-18 12:14 | P.PN ---
Subjective Date of Service: 01/18/22 Chief Complaint: dizziness, weakness Patient seen and examined at bedside, off oxygen. Review of Systems 10-point ROS is otherwise unremarkable Physical Examination - Vital Signs Temperature: 97.2 F Blood Pressure: 187/73 Pulse: 67 Respirations: 16 Pulse Ox (%): 100 - Studies Laboratory Last Values WBC 8.50 K/uL (4.3-10.9) 01/08/22 14:49 RBC 2.86 M/uL (3.86-4.86) L 01/08/22 14:49 Hgb 9.2 g/dL (12.0-15.0) L 01/08/22 14:49 Hct 27.8 % (36.0-45.0) L 01/08/22 14:49 MCV 97.4 fL (80-100) 01/08/22 14:49 MCH 32.3 pg (27.0-35.0) 01/08/22 14:49 MCHC 33.1 g/dL (32.0-36.0) 01/08/22 14:49 RDW 14.8 % (12.1-15.2) 01/08/22 14:49 Plt Count 125 K/uL (152-406) L 01/08/22 14:49 MPV 8.5 fL (7.6-11.3) 01/08/22 14:49 Neutrophils % 81.4 % (41.7-73.7) H 01/08/22 14:49 Lymphocytes % 9.9 % (15.3-44.8) L 01/08/22 14:49 Monocytes % 8.4 % (3.3-12.3) 01/08/22 14:49 Eosinophils % 0.0 % (0-4.4) 01/08/22 14:49 Basophils % 0.3 % (0-1.3) 01/08/22 14:49 Absolute Neutrophils 6.9 K/uL (1.8-8.0) 01/08/22 14:49 Absolute Lymphocytes 0.8 K/uL (0.7-4.9) 01/08/22 14:49 Absolute Monocytes 0.7 K/uL (0.1-1.3) 01/08/22 14:49 Absolute Eosinophils 0.0 K/uL (0-0.5) 01/08/22 14:49 Absolute Basophils 0.0 K/uL (0-0.5) 01/08/22 14:49 PT 13.2 SECONDS (9.5-12.5) H 01/08/22 14:49 INR 1.15 01/08/22 14:49 Sodium 139 mmol/L (136-145) 01/08/22 14:49 Potassium 3.1 mmol/L (3.5-5.1) L 01/08/22 14:49 Chloride 101 mmol/L (98-107) 01/08/22 14:49 Carbon Dioxide 30 mmol/L (21-32) 01/08/22 14:49 BUN 29 mg/dL (7-18) H 01/08/22 14:49 Creatinine 6.12 mg/dL (0.55-1.3) H* 01/08/22 14:49 Estimated GFR 8 mL/min (=/>90) L 01/08/22 14:49 Glucose 190 mg/dL (74-106) H 01/08/22 14:49 Lactic Acid 1.3 mmol/L (0.4-2.0) 01/08/22 18:00 Calcium 9.7 mg/dL (8.5-10.1) 01/08/22 14:49 Magnesium 2.1 mg/dL (1.8-2.4) D 01/08/22 14:49 Total Bilirubin 1.0 mg/dL (0.2-1.0) 01/08/22 14:49 Direct Bilirubin 0.6 mg/dL (0-0.2) H 01/08/22 14:49 AST 47 U/L (15-37) H 01/08/22 14:49 ALT 13 U/L (12-78) 01/08/22 14:49 Alkaline Phosphatase 69 U/L (45-117) 01/08/22 14:49 Troponin I High Sens 5974.70 pg/mL (<58.9) H* 01/08/22 14:49 NT-Pro-B Natriuret Pep 837013 pg/mL (<125) H 01/08/22 14:49 Serum Total Protein 7.2 g/dL (6.4-8.2) 01/08/22 14:49 Albumin 2.8 g/dL (3.4-5.0) L 01/08/22 14:49 Globulin 4.4 g/dL (2.3-3.5) H 01/08/22 14:49 Albumin/Globulin Ratio 0.6 (1.1-1.8) L 01/08/22 14:49 Lipase 64 U/L (73-393) L 01/08/22 14:49 SARS-CoV-2 Rap RNA(RT-PCR) Positive (NEGATIVE) A 01/08/22 14:49 Assessment And Plan - Plan Physical exam: General: In no apparent distress HEENT: Atraumatic Neck: Supple Respiratory: Other (Bibasilar crackles/rales) Cardiovascular: No edema, Regular rate/rhythm, systolic murmur Capillary refill: <2 Seconds Gastrointestinal: Normal bowel sounds, No tenderness Musculoskeletal: No clubbing, No swelling Integumentary: No rashes, No breakdown, No significant lesion Conclusions/Impression: Antibiotics Ampicillin: 01/13current Rocephin: 01/09current Vancomycin: Levaquin: Assessment/plan Gram-positive bacteremia Blood cultures obtained on 01/08 grew Enterococcus faecalis in 4/4 bottles. Additional repeat cultures obtained on 01/11 and 01/12 also positive for Enterococcus. Most recent blood cultures obtained on 01/14 &01/15 show no growth at 24 hours. Source of infection-infected right dialysis catheter. Dialysis catheter was removed on 01/13. Repeat echocardiogram obtained on 01/14 showed large mitral valve vegetation new since 01/11 echo. Brain MRI on 01/14 showed multiple infarcts, likely secondary to septic emboli. Patient will need IV antibiotics for at least 6 weeks~tentative completion date of 02/25. We will attempt to replace dialysis catheter on 01/19. Currently on dialysis holiday. Continue double coverage with IV Rocephin and ampicillin. Of note patient has left PICC/midline. Unknown when this was placed as there is no documentation. Area usually covered by BP cuff. Recommend removing this line. COVID-19 PNA Off oxygen. Is out of window for remdesivir therapy. Continue to monitor closely. Asymptomatic. Oral thrush Continue nystatin oral suspension TID AMS ESRD on HD CHF Hypertension -Medical management per primary team Care discussed with Dr. Eren Bettencourt for consultation.
[2022-01-18] MEDS: NYSTATIN 500,000 UNIT/5 ML UDC PO SCH ×2 (13:25→20:18)
[2022-01-18] MEDS: CEFTRIAXONE 2,000 MG in NA CHLORIDE 0.9% 50 ML IV SCH (16:34)
[2022-01-18] MEDS: EPOETIN ALFA 10,000 UNIT/ML VIAL SQ SCH (17:01)
[2022-01-18] MEDS: ramipriL 5 MG CAP PO SCH (20:16)
[2022-01-18] MEDS: TIZANIDINE 4 MG TABLET PO SCH (20:17)
[2022-01-18] MEDS: ATORVASTATIN 40 MG TAB PO SCH (20:17)
[2022-01-18] MEDS: LEVETIRACETAM IV SCH (20:18)
[2022-01-18] MEDS: NA CHLORIDE 0.9% IV SCH (20:18)
--- NOTE | 2022-01-18 20:53 | P.PN ---
Date of Service: 01/18/22 Vital Signs Temp Pulse Resp BP Pulse Ox 97.6 F 69 16 159/74 H 100 01/18/22 16:00 01/18/22 18:18 01/18/22 16:00 01/18/22 18:18 01/18/22 16:00 Medications Acetaminophen (Acetaminophen 500 Mg Tab) 500 mg PO Q4HP PRN PRN Reason: Pain scale 2-4 (Mild) Last Admin: 01/10/22 21:52 Dose: 500 mg Documented by: Albuterol Sulfate (Albuterol 2.5 Mg/3 Ml Neb Erma) 2.5 mg NEB [id number] PRN PRN Reason: SHORTNESS OF BREATH Atorvastatin Calcium (Atorvastatin 40 Mg Tab) 40 mg PO BEDTIME [facility] Last Admin: 01/18/22 20:17 Dose: 40 mg Documented by: Benzonatate (Benzonatate 100 Mg Cap) 100 mg PO TID PRN PRN Reason: COUGH Calcium Acetate (Calcium Acetate 667 Mg Tab) 1,334 mg PO TIDWM [facility] Last Admin: 01/18/22 16:34 Dose: 1,334 mg Documented by: Carvedilol (Carvedilol 25 Mg Tab) 25 mg PO BID 6AM 6PM [facility] Last Admin: 01/18/22 16:35 Dose: 25 mg Documented by: Cholecalciferol (Vitamin D 5,000 Unit Cap) 5,000 unit PO DAILY [facility] Last Admin: 01/18/22 08:48 Dose: Not Given Documented by: Diphenhydramine HCl (Diphenhydramine 50 Mg/Ml Vial) 25 mg IV Q12HR [facility] Last Admin: 01/18/22 20:19 Dose: 25 mg Documented by: Enteral Nutritional Formula (Nepro Shake 237 Ml Can) 237 ml PO TID [facility] Last Admin: 01/18/22 20:19 Dose: 237 ml Documented by: Epoetin Tommy (Epoetin Tommy 10,000 Unit/Ml Vial) 10,000 unit SQ M,W,F [facility] Last Admin: 01/18/22 17:01 Dose: 10,000 unit Documented by: Gabapentin (Gabapentin 300 Mg Cap) 300 mg PO BID [facility] Last Admin: 01/18/22 20:19 Dose: 300 mg Documented by: Hydralazine HCl (Hydralazine Hcl 20 Mg/Ml Vial) 10 mg IV Q6HP PRN PRN Reason: Titrate to SBP (MUST DEFINE) Last Admin: 01/18/22 11:31 Dose: 10 mg Documented by: Hydralazine HCl (Hydralazine Hcl 25 Mg Tablet) 50 mg PO BID [facility] Last Admin: 01/18/22 20:20 Dose: 50 mg Documented by: Ampicillin Sodium 2 gm/ Sodium (Chloride) 100 mls @ 200 mls/hr IVPB Q12HR [facility] Last Admin: 01/18/22 20:20 Dose: 100 mls Documented by: Ceftriaxone Sodium 2,000 mg/ (Sodium Chloride) 50 mls @ 100 mls/hr IV Q24H [facility]; Protocol Last Admin: 01/18/22 16:34 Dose: 50 mls Documented by: Levetiracetam 125 mg/ Sodium (Chloride) 101.25 mls @ 410 mls/hr IV BID [facility] Last Admin: 01/18/22 20:18 Dose: 101.25 mls Documented by: Insulin Human Regular (Insulin -Regular Human 50 Unit/0.5 Ml Ml) 0 unit SQ ACHS [facility]; Protocol Last Admin: 01/18/22 20:17 Dose: Not Given Documented by: Ipratropium [place] (Ipratropium Brom 0.5mg/2.5ml) 0.5 mg NEB [id number] PRN PRN Reason: SHORTNESS OF BREATH Lactobacillus Acidoph/Bulgaricus (Lactobacillus/Acidophilus Tab) 1 tab PO TID [facility] Last Admin: 01/18/22 20:18 Dose: 1 tab Documented by: Metoprolol Tartrate (Metoprolol Tar 25 Mg Tab) 25 mg PO BID 6AM 6PM [facility] Last Admin: 01/18/22 16:36 Dose: 25 mg Documented by: Nifedipine (Nifedipine Xl 30 Mg Tablet) 30 mg PO BID [facility] Last Admin: 01/18/22 20:19 Dose: 30 mg Documented by: Nystatin (Nystatin 500,000 Unit/5 Ml Udc) 500,000 unit PO TID [facility] Last Admin: 01/18/22 20:18 Dose: 500,000 unit Documented by: Ondansetron HCl (Ondansetron 4 Mg/2 Ml Vial) 4 mg IV Q6HP PRN PRN Reason: NAUSEA / VOMITING Ramipril (Ramipril 5 Mg Cap) 10 mg PO BEDTIME [facility] Last Admin: 01/18/22 20:16 Dose: 10 mg Documented by: Sodium Chloride (Flush Normal Saline 10 Ml) 10 ml IV BID [facility] Last Admin: 01/18/22 20:18 Dose: 10 ml Documented by: Thiamine HCl (Thiamine Hcl 100 Mg Tablet) 100 mg PO DAILY [facility] Last Admin: 01/18/22 08:48 Dose: Not Given Documented by: Tizanidine HCl (Tizanidine 4 Mg Tablet) 4 mg PO BID [facility] Last Admin: 01/18/22 20:17 Dose: 4 mg Documented by: Microbiology Results 01/08/22 17:50 Blood - Blood Aerobic Blood Culture - Final Enterococcus Faecalis 01/08/22 17:50 Blood - Blood Blood Culture Gram Stain - Final 01/08/22 17:50 Blood - Blood Anaerobic Blood Culture - Final Enterococcus Faecalis 01/08/22 17:50 Blood - Blood Gram Stain - Final 01/08/22 18:00 Blood - Blood Aerobic Blood Culture - Final Enterococcus Faecalis 01/08/22 18:00 Blood - Blood Blood Culture Gram Stain - Final 01/08/22 18:00 Blood - Blood Anaerobic Blood Culture - Final Enterococcus Faecalis 01/08/22 18:00 Blood - Blood Gram Stain - Final Assessment/ Plan: Nephrology No dyspnea No chest pain Fatigue and weakness. Waxing and waning mental status. Nurse reports worsening BP No acute events overnight Vitals, medications, blood work and imaging reviewed in the chart. NAD. NCAT. MMM. Neck supple. Normal respiratory effort. RRR. Abd ND. No C/C/E. No rash. AAO. Normal speech. ESRD -HD prn Bacteremia Mitral vegetation/ Endocarditis -CVC placement prn -Continue Abx HTN with CKD/ CHF -Continue Ramipril -Increase Nifedipine ER 30mg BID Diastolic CHF, chronic -Low sodium diet -Continue Coreg DM II with CKD -RISS Moderate malnutrition -Continue Nepro Anemia in CKD -Retacrit TIW CKD MBD -Continue Phoslo Toxic metabolic encephalopathy due to multiple brain infarcts Mitral vegetation/ Endocarditis -Continue abx EXAM DESCRIPTION: MRI - Brain Wo Cont - 01/14/2022 12:01 pm CLINICAL HISTORY: r/o stroke, left sided weakness COMPARISON: Head Brain Wo Cont dated 01/09/2022 TECHNIQUE: Sagittal T1-weighted images were obtained along with PD/heavily T2- weighted and T2-FLAIR images. Axial DWI and ADC mapping sequences were also obtained along with coronal heavily T2-weighted images were obtained. FINDINGS: Multiple bilateral infarcts identified, the largest in the body of the caudate on the right measuring 17 millimeters. There are multiple in the basal ganglia and alfredo radiata as well as some small cortical infarcts in the frontal lobes. Small infarct in the right lobe of the cerebellum. Advanced chronic small vessel ischemic changes. Cerebral atrophy. No mass effect or midline shift. Mastoid air cells and paranasal sinuses are clear. IMPRESSION: Bilateral small cortical, deep white matter, basal ganglia, and cerebellar infarcts involving multiple vascular distributions. This could be secondary to cardioembolic source.
[2022-01-19 03:58] LABS: Absolute Lymphocytes (CBC) 1.6 K/uL (0.7-4.9); Lymphocytes % 19.6 % (15.3-44.8); MPV 7.9 fL (7.6-11.3); RBC Red Blood Cell Count 2.85 M/uL (3.86-4.86)
[2022-01-19 04:21] LABS: Albumin 1.9 g/dL (3.4-5.0); Bilirubin Total 0.4 mg/dL (0.2-1.0); Potassium 4.4 mmol/L (3.5-5.1)
[2022-01-19] MEDS: carvediloL 25 MG TAB PO SCH ×2 (05:13→17:35)
[2022-01-19] MEDS: METOPROLOL TAR 25 MG TAB PO SCH ×2 (05:13→17:34)
[2022-01-19] MEDS ORDERED: ALBUTEROL 2.5 MG/3 ML NEB SOL NEB PRN (07:16)
[2022-01-19] MEDS: INSULIN -REGULAR HUMAN 50 UNIT/0.5 ML ML SQ SCH ×4 (07:30→21:00)
[2022-01-19] MEDS ORDERED: IPRATROPIUM BROM 0.5MG/2.5ML NEB PRN (08:00)
[2022-01-19] MEDS: CALCIUM ACETATE 667 MG TAB PO SCH ×3 (08:00→17:33)
[2022-01-19] MEDS ORDERED: NA CHLORIDE 0.9% 500 ML ONE (08:24)
[2022-01-19] MEDS ORDERED: NS 0.9% VIAL 10 ML ONE (08:39)
[2022-01-19] MEDS ORDERED: NA CHLORIDE 0.9% 100 ML IV ONE (08:40)
[2022-01-19] MEDS: GABAPENTIN 300 MG CAP PO SCH ×2 (09:00→22:40)
[2022-01-19] MEDS: HYDRALAZINE HCL 25 MG TABLET PO SCH ×2 (09:00→22:40)
[2022-01-19] MEDS: NYSTATIN 500,000 UNIT/5 ML UDC PO SCH ×3 (09:00→21:00)
[2022-01-19] MEDS: VITAMIN D 5,000 UNIT CAP PO SCH (09:00)
[2022-01-19] MEDS: TIZANIDINE 4 MG TABLET PO SCH ×2 (09:00→22:43)
[2022-01-19] MEDS: DULERA 200/5 (MOMETASONE/FORMOTEROL) INHALER IH SCH ×2 (09:00→21:00)
[2022-01-19] MEDS: NIFEDIPINE XL 30 MG TABLET PO SCH ×2 (09:00→22:40)
[2022-01-19] MEDS: LACTOBACILLUS/ACIDOPHILUS TAB PO SCH ×3 (09:00→22:43)
[2022-01-19] MEDS: DIPHENHYDRAMINE 50 MG/ML VIAL IV SCH ×2 (09:00→21:00)
[2022-01-19] MEDS: THIAMINE HCL 100 MG TABLET PO SCH (09:00)
[2022-01-19] MEDS: NEPRO SHAKE 237 ML CAN PO SCH ×3 (09:00→21:00)
[2022-01-19] MEDS ORDERED: LIDOCAINE 1% MPF 5 ML VIAL ONE (09:01)
[2022-01-19] MEDS ORDERED: propofoL 200 MG/20 ML VIAL IV ONE (09:01)
[2022-01-19] MEDS ORDERED: MIDAZOLAM HCL 2 MG/2 ML INJ ONE (09:01)
[2022-01-19] MEDS ORDERED: FENTANYL CITR 100 MCG/2 ML ONE (09:01)
[2022-01-19] MEDS: BUPIVACAINE 0.5% PF 10 ML VIAL ONE ×2 (09:49→09:50)
[2022-01-19] MEDS: HEPARIN 5000 UNIT/ML 1 ML VIAL ONE ×4 (09:49→09:55)
--- NOTE | 2022-01-19 10:40 | RAD REPORT ---
EXAM DESCRIPTION: RAD - Fluoroscopy <1 Hour - 01/19/2022 10:25 am CLINICAL HISTORY: Venous catheter insertion. HEMODIALYSIS PORT COMPARISON: Fluoroscopy <1 Hour dated 01/31/2019 FINDINGS: Fluoroscopic imaging is submitted from placement of a venous catheter. Details of the pro cedure not available. 2.26 mGy dosage. Fluoroscopy time: 0 point 2 minutes.
--- NOTE | 2022-01-19 10:46 | P.BOP ---
Preoperative diagnosis: ESRD Postoperative diagnosis: same Primary procedure: 1. placerment of femoreal non-cuff HD catheter Secondary procedure: 2. Right neck and right femoral ultrasound Estimated blood loss: <5cc Specimen: none Findings: see dicta Anesthesia: Local Complications: None Transferred to: Recovery Room Condition: Good
--- NOTE | 2022-01-19 11:02 | RAD REPORT ---
EXAM DESCRIPTION: RAD - Chest Single View - 01/19/2022 10:55 am CLINICAL HISTORY: attempted HD cath Chest pain. COMPARISON: Chest Single View dated 01/12/2022; Chest Single View dated 01/08/2022; Chest Single View dated 12/07/2021; Chest Single View dated 12/06/2021 FINDINGS: Portable technique limits examination quality. Moderate sized opacity in the right lung base has the appearance of atelectasis or aspiration. No pne umothorax. The heart is mildly enlarged in size.
[2022-01-19] MEDS: LEVETIRACETAM IV SCH ×2 (12:38→21:00)
[2022-01-19] MEDS: AMPICILLIN SODIUM 2 GM in NA CHLORIDE 0.9% 100 ML IVPB SCH ×2 (12:38→21:00)
[2022-01-19] MEDS: NA CHLORIDE 0.9% IV SCH ×2 (12:38→21:00)
[2022-01-19 14:15] LABS: Vitamin D 1,25-Dihydroxy Total 66 pg/mL
[2022-01-19 14:24] LABS: Vitamin D,1,25-OH2, D2 <8 pg/mL
--- NOTE | 2022-01-19 15:11 | P.PN ---
Subjective Date of Service: 01/19/22 Chief Complaint: dizziness, weakness Patient seen and examined at bedside, right groin dialysis catheter placed. Plan for dialysis today. Review of Systems 10-point ROS is otherwise unremarkable Physical Examination - Vital Signs Temperature: 97.7 F Blood Pressure: 148/73 Pulse: 63 Respirations: 16 Pulse Ox (%): 95 - Studies Laboratory Last Values WBC 8.50 K/uL (4.3-10.9) 01/08/22 14:49 RBC 2.86 M/uL (3.86-4.86) L 01/08/22 14:49 Hgb 9.2 g/dL (12.0-15.0) L 01/08/22 14:49 Hct 27.8 % (36.0-45.0) L 01/08/22 14:49 MCV 97.4 fL (80-100) 01/08/22 14:49 MCH 32.3 pg (27.0-35.0) 01/08/22 14:49 MCHC 33.1 g/dL (32.0-36.0) 01/08/22 14:49 RDW 14.8 % (12.1-15.2) 01/08/22 14:49 Plt Count 125 K/uL (152-406) L 01/08/22 14:49 MPV 8.5 fL (7.6-11.3) 01/08/22 14:49 Neutrophils % 81.4 % (41.7-73.7) H 01/08/22 14:49 Lymphocytes % 9.9 % (15.3-44.8) L 01/08/22 14:49 Monocytes % 8.4 % (3.3-12.3) 01/08/22 14:49 Eosinophils % 0.0 % (0-4.4) 01/08/22 14:49 Basophils % 0.3 % (0-1.3) 01/08/22 14:49 Absolute Neutrophils 6.9 K/uL (1.8-8.0) 01/08/22 14:49 Absolute Lymphocytes 0.8 K/uL (0.7-4.9) 01/08/22 14:49 Absolute Monocytes 0.7 K/uL (0.1-1.3) 01/08/22 14:49 Absolute Eosinophils 0.0 K/uL (0-0.5) 01/08/22 14:49 Absolute Basophils 0.0 K/uL (0-0.5) 01/08/22 14:49 PT 13.2 SECONDS (9.5-12.5) H 01/08/22 14:49 INR 1.15 01/08/22 14:49 Sodium 139 mmol/L (136-145) 01/08/22 14:49 Potassium 3.1 mmol/L (3.5-5.1) L 01/08/22 14:49 Chloride 101 mmol/L (98-107) 01/08/22 14:49 Carbon Dioxide 30 mmol/L (21-32) 01/08/22 14:49 BUN 29 mg/dL (7-18) H 01/08/22 14:49 Creatinine 6.12 mg/dL (0.55-1.3) H* 01/08/22 14:49 Estimated GFR 8 mL/min (=/>90) L 01/08/22 14:49 Glucose 190 mg/dL (74-106) H 01/08/22 14:49 Lactic Acid 1.3 mmol/L (0.4-2.0) 01/08/22 18:00 Calcium 9.7 mg/dL (8.5-10.1) 01/08/22 14:49 Magnesium 2.1 mg/dL (1.8-2.4) D 01/08/22 14:49 Total Bilirubin 1.0 mg/dL (0.2-1.0) 01/08/22 14:49 Direct Bilirubin 0.6 mg/dL (0-0.2) H 01/08/22 14:49 AST 47 U/L (15-37) H 01/08/22 14:49 ALT 13 U/L (12-78) 01/08/22 14:49 Alkaline Phosphatase 69 U/L (45-117) 01/08/22 14:49 Troponin I High Sens 5974.70 pg/mL (<58.9) H* 01/08/22 14:49 NT-Pro-B Natriuret Pep 688955 pg/mL (<125) H 01/08/22 14:49 Serum Total Protein 7.2 g/dL (6.4-8.2) 01/08/22 14:49 Albumin 2.8 g/dL (3.4-5.0) L 01/08/22 14:49 Globulin 4.4 g/dL (2.3-3.5) H 01/08/22 14:49 Albumin/Globulin Ratio 0.6 (1.1-1.8) L 01/08/22 14:49 Lipase 64 U/L (73-393) L 01/08/22 14:49 SARS-CoV-2 Rap RNA(RT-PCR) Positive (NEGATIVE) A 01/08/22 14:49 Assessment And Plan - Plan Physical exam: General: In no apparent distress HEENT: Atraumatic Neck: Supple Respiratory: Other (Bibasilar crackles/rales) Cardiovascular: No edema, Regular rate/rhythm, systolic murmur Capillary refill: <2 Seconds Gastrointestinal: Normal bowel sounds, No tenderness Musculoskeletal: No clubbing, No swelling Integumentary: No rashes, No breakdown, No significant lesion Conclusions/Impression: Antibiotics Ampicillin: 01/13current Rocephin: 01/09current Vancomycin: Levaquin: Assessment/plan Gram-positive bacteremia Blood cultures obtained on 01/08 grew Enterococcus faecalis in 4/4 bottles. Additional repeat cultures obtained on 01/11 and 01/12 also positive for Enterococcus. Catheter tip culture obtained on 01/13+ for Enterococcus faecalis. Most recent blood cultures obtained on 01/14 &01/15 show no growth at 24 hours. Source of infection-infected right dialysis catheter. Dialysis catheter was removed on 01/13. Repeat echocardiogram obtained on 01/14 showed large mitral valve vegetation new since 01/11 echo. Brain MRI on 01/14 showed multiple infarcts, likely secondary to septic emboli. Patient will need IV antibiotics for at least 6 weeks~tentative completion date of 02/25. Right femoral dialysis catheter placed on 01/19, plan for dialysis today, patient had dialysis holiday from . Continue double coverage with IV Rocephin and ampicillin. Of note patient has left PICC/midline. Unknown when this was placed as there is no documentation. Area usually covered by BP cuff. Recommend removing this line. COVID-19 PNA On low amount of oxygen via [place]. Is out of window for remdesivir therapy. Continue to monitor closely. Asymptomatic. Oral thrush Continue nystatin oral suspension TID AMS ESRD on HD CHF Hypertension -Medical management per primary team Care discussed with Dr. Eren Bettencourt for consultation.
--- NOTE | 2022-01-19 15:54 | P.PN ---
Subjective Date of Service: 01/19/22 Chief Complaint: dizziness, weakness History of CVA. It appears patient is aphasic. I could not elicit any complaint from her and she was not interactive. Dialysis catheter placed in the femoral region today. Physical Examination - Vital Signs Temperature: 97.7 F Blood Pressure: 148/73 Pulse: 63 Respirations: 16 Pulse Ox (%): 95 Assessment And Plan - Plan Physical exam GEN: NAD, AOx2, tired appearing CV: Regular rate and rhythm, no edema Pulm: Non-labored respirations on 2L NC ABD: Soft, nontender, nondistended Neuro: flaccid LUE, +sensation in LUE, AAOx2, moves b/l lower extremites R > L Problem List multiple acute CVAs Endocarditis, Enterococcus Acute hypoxemic respiratory failure secondary to COVID-19 pneumonia Acute metabolic encephalopathy secondary to bacteremia NSTEMI CAD CHF ESRD on HD DM 2 Enterococcus bacteremia with large vegetaion - likely cause of acute CVAs poor prognosis neurology consulted, started anticoagulation, folic acid, keppra. Patient has remained stable Decrease dose of Keppra to see if patient will wake more After further discussion with neurology, risk outweighs the benefit of continuing on anticoagulation, discontinued on 01/17 family did not want patient transferred to tertiary [facility], no valve surgery, no plans for PEG. Patient stated "hell no", when asked about PEG tube Patient is high risk for further thrombus formation and more CVAs Nephrology following 03/01 blood cx: Enterococcus, repeat cultures without growth since dialysis line removed. catheter tip positive for Enterococcus as well ID consulted, continue antibiotics. Temporary femoral dialysis catheter placed for hemodialysis. Hemodialysis today. Code: Full Dispo: hospitalization > 2 days Daughter does not want patient transferred to [facility] at this time, no plans for PEG tube.
--- NOTE | 2022-01-19 16:44 | OP ---
Date of Procedure: 01/19/2022 Surgeon: Stef Merritt MD Preoperative Diagnoses: End-stage renal disease, change in mental status, bacteremia, acute stroke. Postoperative Diagnoses: End-stage renal disease, change in mental status, bacteremia, acute stroke. Procedures Performed: Placement of a hemodialysis catheter in right femoral vein, right neck and a f emoral ultrasound attempt, and right neck dialysis catheter. Anesthesia: Sedation. Complications: None. Indication: This is the case of a female, admitted to the hospital with bacteremia, sepsis protocol, found to have also acute stroke. They were getting workup for the cardiac vegetations. The cathete r per protocol was requested to be removed. This catheter was placed in [place]. I understand that this is a complicated placement, but as part of the protocol, they asked us to remove the catheter an d we did and cultures came back negative, but now we are having the issue of having to get dialysis o nce again and some factors may affect how we put the catheter. We explained to the patient and famil y the ideal situation is once again to replace the cuffed catheter in, but with the limitations of an acute emboli or stroke, unknown etiology and also the inability to hurt to predict cooperation and a lso limitation of anesthesia, we might not be able to do the cuffed catheter and just put the femoral on the right side until she is stable enough and she can be put under anesthesia. Today, anesthesio logist will give her a version of sedation and MAC and that is the best they can do right now. She l ooks calm, so we are going to proceed to trying to see if how she behaves and we start to the procedu re on the right side. If not, then we are going to move to the temporary catheter in the right femor al, so she can receive dialysis and get medically stable so we can then try later with some anestheti c the formal catheter placement. The benefits, alternatives, and risks were explained to the family, which include, but not limited to infection, bleeding, damage to adjacent structures, anesthesia com plication, PE, cardiac tamponade, contamination of the catheter, bacteremia, artery laceration, pulmo nary emboli, clots, IL, and even . They also understand this may not relieve any symptoms. She might need more than one surgical intervention. She understood, the family signed a consent. Procedure In Detail: The patient was brought to the operating room, placed in supine position. Anes thesia was induced without complication, mainly sedation on the patient and MAC. I understand the an esthesia point. They did not want to put this patient to sleep completely because they believe that it is not safe to do at this moment. At the same time, they understand that the patient needs dialys is catheter and she does not cooperate, so they are going to try to the best they can to see if they can keep her stable enough for me to put the catheter in the neck. The right neck and chest were pre pped and draped in the usual sterile fashion. Local anesthesia was applied. An 18-gauge needle was placed in the skin and immediately she started moving around and moving her neck and uncomfortable. We once again let the anesthesia after the patient was just in the Trendelenburg position. The patie nt was uncomfortable. Anesthesia trying to get IV more sedation, but to the point that we cannot be done in safe fashion. The patient is moving and finding us with a neck and we understand she is conf used. She does not like even the Trendelenburg position. At that moment, I decided that it is unsaf e to continue with this procedure. We have not even started and we are trying to put that through th e skin itself without even going deeper and she is already doing movement that it may compromise her life and we do not want damage to the carotid artery with amount of damage to the vein. We do not wa nt to lacerate the vein either. At the same time, by her moving and coughing, it may put in position to develop a pneumothorax. I believe it is unsafe. Anesthesia does not want to put her to sleep be cause they believe it is unsafe for them too so. I proceeded to abort that area. Before that, we al ready have an ultrasound done of that region localizing the vein and artery. At that moment, we prep ped and draped the right femoral region in the usual sterile fashion. Using an ultrasound once again , we proceeded to determine and identify the vein and looked compressible. At that moment, I proceed ed then to put local anesthetic. At that moment, the patient tolerated that. We took her out of the Trendelenburg position. She looks more calm and she was willing to allow us to do this in the femor al region. In that case, we take it. So, local anesthesia was applied. An 18-gauge needle was plac ed in the right femoral vein at the first attempt. Guidewire was passed through into the inferior ve na cava using fluoroscopy guidance. A small incision was made in the skin. Multiple dilators and in troducers were placed through the guidewire. The guidewire was removed. The catheter was placed thr ough the introducer and then the introducer was peeled off carefully. Excellent backflow and inflow. The catheter was secured in place with 3-0 nylon and once again final fluoroscopy looked for good p osition. The patient tolerated the procedure well. No bleeding. At this point, the patient stayed quiet and without any movement. For that reason, it was easier to put it and also safer. The patien t tolerated the procedure well. The patient was sent to recovery in stable condition. We are going to let the medical doctors decide the next step at least we have a temporary catheter that she can re ceive dialysis, but if the patient cannot be placed in the position and she does not move, it will no t be safe at least in this institution to get this catheter placed. RHYS/CHANO Voice ID: [id number] Report ID: [id number]
--- NOTE | 2022-01-19 17:26 | P.PN ---
Date of Service: 01/19/22 Vital Signs Temp Pulse Resp BP Pulse Ox 97.7 F 63 16 148/73 H 95 01/19/22 15:54 01/19/22 15:54 01/19/22 15:54 01/19/22 15:54 01/19/22 15:54 Medications Acetaminophen (Acetaminophen 500 Mg Tab) 500 mg PO Q4HP PRN PRN Reason: Pain scale 2-4 (Mild) Last Admin: 01/10/22 21:52 Dose: 500 mg Documented by: Albuterol Sulfate (Albuterol 2.5 Mg/3 Ml Neb Erma) 2.5 mg NEB Q6HP PRN PRN Reason: SHORTNESS OF BREATH Atorvastatin Calcium (Atorvastatin 40 Mg Tab) 40 mg PO BEDTIME [facility] Last Admin: 01/18/22 20:17 Dose: 40 mg Documented by: Benzonatate (Benzonatate 100 Mg Cap) 100 mg PO TID PRN PRN Reason: COUGH Calcium Acetate (Calcium Acetate 667 Mg Tab) 1,334 mg PO TIDWM [facility] Last Admin: 01/19/22 12:00 Dose: Not Given Documented by: Carvedilol (Carvedilol 25 Mg Tab) 25 mg PO BID 6AM 6PM [facility] Last Admin: 01/19/22 05:13 Dose: 25 mg Documented by: Cholecalciferol (Vitamin D 5,000 Unit Cap) 5,000 unit PO DAILY [facility] Last Admin: 01/19/22 09:00 Dose: Not Given Documented by: Diphenhydramine HCl (Diphenhydramine 50 Mg/Ml Vial) 25 mg IV Q12HR [facility] Last Admin: 01/19/22 09:00 Dose: Not Given Documented by: Enteral Nutritional Formula (Nepro Shake 237 Ml Can) 237 ml PO TID [facility] Last Admin: 01/19/22 14:00 Dose: 237 ml Documented by: Epoetin Tommy (Epoetin Tommy 10,000 Unit/Ml Vial) 10,000 unit SQ M,W,F [facility] Last Admin: 01/18/22 17:01 Dose: 10,000 unit Documented by: Gabapentin (Gabapentin 300 Mg Cap) 300 mg PO BID [facility] Last Admin: 01/19/22 09:00 Dose: Not Given Documented by: Heparin Sodium (Porcine) (Heparin 1,000 Unit/Ml Vial) 6,000 unit IV EVERY HD PRN PRN Reason: DIALYSIS Hydralazine HCl (Hydralazine Hcl 20 Mg/Ml Vial) 10 mg IV Q6HP PRN PRN Reason: Titrate to SBP (MUST DEFINE) Last Admin: 01/18/22 11:31 Dose: 10 mg Documented by: Hydralazine HCl (Hydralazine Hcl 25 Mg Tablet) 50 mg PO BID [facility] Last Admin: 01/19/22 09:00 Dose: Not Given Documented by: Ampicillin Sodium 2 gm/ Sodium (Chloride) 100 mls @ 200 mls/hr IVPB Q12HR [facility] Last Admin: 01/19/22 12:38 Dose: 100 mls Documented by: Levetiracetam 125 mg/ Sodium (Chloride) 101.25 mls @ 410 mls/hr IV BID [facility] Last Admin: 01/19/22 12:38 Dose: 101.25 mls Documented by: Ceftriaxone Sodium 2,000 mg/ (Sodium Chloride) 100 mls @ 200 mls/hr IV Q12HR [facility]; Protocol Insulin Human Regular (Insulin -Regular Human 50 Unit/0.5 Ml Ml) 0 unit SQ ACHS [facility]; Protocol Last Admin: 01/19/22 11:30 Dose: Not Given Documented by: Ipratropium [place] (Ipratropium Brom 0.5mg/2.5ml) 0.5 mg NEB Q6HP PRN PRN Reason: SHORTNESS OF BREATH Lactobacillus Acidoph/Bulgaricus (Lactobacillus/Acidophilus Tab) 1 tab PO TID [facility] Last Admin: 01/19/22 15:17 Dose: 1 tab Documented by: Metoprolol Tartrate (Metoprolol Tar 25 Mg Tab) 25 mg PO BID 6AM 6PM [facility] Last Admin: 01/19/22 05:13 Dose: 25 mg Documented by: Nifedipine (Nifedipine Xl 30 Mg Tablet) 30 mg PO BID [facility] Last Admin: 01/19/22 09:00 Dose: Not Given Documented by: Nystatin (Nystatin 500,000 Unit/5 Ml Udc) 500,000 unit PO TID [facility] Last Admin: 01/19/22 15:17 Dose: 500,000 unit Documented by: Ondansetron HCl (Ondansetron 4 Mg/2 Ml Vial) 4 mg IV Q6HP PRN PRN Reason: NAUSEA / VOMITING Ramipril (Ramipril 5 Mg Cap) 10 mg PO BEDTIME [facility] Last Admin: 01/18/22 20:16 Dose: 10 mg Documented by: Sodium Chloride (Flush Normal Saline 10 Ml) 10 ml IV BID [facility] Last Admin: 01/19/22 09:00 Dose: Not Given Documented by: Thiamine HCl (Thiamine Hcl 100 Mg Tablet) 100 mg PO DAILY [facility] Last Admin: 01/19/22 09:00 Dose: Not Given Documented by: Tizanidine HCl (Tizanidine 4 Mg Tablet) 4 mg PO BID [facility] Last Admin: 01/19/22 09:00 Dose: Not Given Documented by: Microbiology Results 01/08/22 17:50 Blood - Blood Aerobic Blood Culture - Final Enterococcus Faecalis 01/08/22 17:50 Blood - Blood Blood Culture Gram Stain - Final 01/08/22 17:50 Blood - Blood Anaerobic Blood Culture - Final Enterococcus Faecalis 01/08/22 17:50 Blood - Blood Gram Stain - Final 01/08/22 18:00 Blood - Blood Aerobic Blood Culture - Final Enterococcus Faecalis 01/08/22 18:00 Blood - Blood Blood Culture Gram Stain - Final 01/08/22 18:00 Blood - Blood Anaerobic Blood Culture - Final Enterococcus Faecalis 01/08/22 18:00 Blood - Blood Gram Stain - Final Assessment/ Plan: Nephrology No dyspnea No chest pain Fatigue and weakness. Waxing and waning mental status. No acute events overnight Vitals, medications, blood work and imaging reviewed in the chart. NAD. NCAT. MMM. Neck supple. Normal respiratory effort. RRR. Abd ND. No C/C/E. No rash. Awake. Normal speech. ESRD -Temporary CVC today -HD today HTN with CKD/ CHF -Continue Ramipril -Continue Nifedipine ER 30mg BID Diastolic CHF, chronic -Low sodium diet -Continue Coreg DM II with CKD -RISS Moderate malnutrition -Continue Nepro Anemia in CKD -Retacrit TIW CKD MBD -Continue Phoslo Toxic metabolic encephalopathy due to multiple brain infarcts Mitral vegetation/ Endocarditis/ Bacteremia -Continue abx Case reviewed with Dr. Barrios EXAM DESCRIPTION: MRI - Brain Wo Cont - 01/14/2022 12:01 pm CLINICAL HISTORY: r/o stroke, left sided weakness COMPARISON: Head Brain Wo Cont dated 01/09/2022 TECHNIQUE: Sagittal T1-weighted images were obtained along with PD/heavily T2- weighted and T2-FLAIR images. Axial DWI and ADC mapping sequences were also obtained along with coronal heavily T2-weighted images were obtained. FINDINGS: Multiple bilateral infarcts identified, the largest in the body of the caudate on the right measuring 17 millimeters. There are multiple in the basal ganglia and alfredo radiata as well as some small cortical infarcts in the frontal lobes. Small infarct in the right lobe of the cerebellum. Advanced chronic small vessel ischemic changes. Cerebral atrophy. No mass effect or midline shift. Mastoid air cells and paranasal sinuses are clear. IMPRESSION: Bilateral small cortical, deep white matter, basal ganglia, and cerebellar infarcts involving multiple vascular distributions. This could be secondary to cardioembolic source.
[2022-01-19] MEDS: ramipriL 5 MG CAP PO SCH (21:00)
[2022-01-19] MEDS: CEFTRIAXONE 2,000 MG in NA CHLORIDE 0.9% 100 ML IV SCH (22:41)
[2022-01-19] MEDS: ATORVASTATIN 40 MG TAB PO SCH (22:42)
[2022-01-20 03:59] LABS: Absolute Lymphocytes (CBC) 1.5 K/uL (0.7-4.9); Lymphocytes % 17.3 % (15.3-44.8); RBC Red Blood Cell Count 2.87 M/uL (3.86-4.86)
[2022-01-20 04:31] LABS: Potassium 3.6 mmol/L (3.5-5.1)
[2022-01-20] MEDS: METOPROLOL TAR 25 MG TAB PO SCH ×2 (05:57→18:00)
[2022-01-20] MEDS: carvediloL 25 MG TAB PO SCH ×2 (05:57→18:00)
[2022-01-20] MEDS: INSULIN -REGULAR HUMAN 50 UNIT/0.5 ML ML SQ SCH ×4 (07:30→21:00)
[2022-01-20] MEDS: CALCIUM ACETATE 667 MG TAB PO SCH ×3 (08:00→17:00)
[2022-01-20] MEDS: NIFEDIPINE XL 30 MG TABLET PO SCH ×2 (09:00→21:00)
[2022-01-20] MEDS: THIAMINE HCL 100 MG TABLET PO SCH (09:00)
[2022-01-20] MEDS: VITAMIN D 5,000 UNIT CAP PO SCH (09:00)
[2022-01-20] MEDS: NYSTATIN 500,000 UNIT/5 ML UDC PO SCH ×3 (09:00→21:00)
[2022-01-20] MEDS: DIPHENHYDRAMINE 50 MG/ML VIAL IV SCH ×2 (09:00→21:00)
[2022-01-20] MEDS: HYDRALAZINE HCL 25 MG TABLET PO SCH ×2 (09:00→21:00)
[2022-01-20] MEDS: NEPRO SHAKE 237 ML CAN PO SCH ×3 (09:00→21:00)
[2022-01-20] MEDS: LACTOBACILLUS/ACIDOPHILUS TAB PO SCH ×3 (09:00→21:00)
[2022-01-20] MEDS: GABAPENTIN 300 MG CAP PO SCH ×2 (09:00→21:00)
[2022-01-20] MEDS: TIZANIDINE 4 MG TABLET PO SCH ×2 (09:00→21:00)
--- NOTE | 2022-01-20 10:39 | P.PN ---
Subjective Date of Service: 01/20/22 Chief Complaint: dizziness, weakness Patient seen and examined at bedside, resting at bedside. Per nursing staff it is very difficult to give patient oral meds/feedings as she is very somnolent/altered. Patient may need PEG tube. Albumin significantly downtrending. Review of Systems 10-point ROS is otherwise unremarkable Physical Examination - Vital Signs Temperature: 97.7 F Blood Pressure: 103/52 Pulse: 69 Respirations: 19 Pulse Ox (%): 93 - Studies Laboratory Last Values WBC 8.50 K/uL (4.3-10.9) 01/08/22 14:49 RBC 2.86 M/uL (3.86-4.86) L 01/08/22 14:49 Hgb 9.2 g/dL (12.0-15.0) L 01/08/22 14:49 Hct 27.8 % (36.0-45.0) L 01/08/22 14:49 MCV 97.4 fL (80-100) 01/08/22 14:49 MCH 32.3 pg (27.0-35.0) 01/08/22 14:49 MCHC 33.1 g/dL (32.0-36.0) 01/08/22 14:49 RDW 14.8 % (12.1-15.2) 01/08/22 14:49 Plt Count 125 K/uL (152-406) L 01/08/22 14:49 MPV 8.5 fL (7.6-11.3) 01/08/22 14:49 Neutrophils % 81.4 % (41.7-73.7) H 01/08/22 14:49 Lymphocytes % 9.9 % (15.3-44.8) L 01/08/22 14:49 Monocytes % 8.4 % (3.3-12.3) 01/08/22 14:49 Eosinophils % 0.0 % (0-4.4) 01/08/22 14:49 Basophils % 0.3 % (0-1.3) 01/08/22 14:49 Absolute Neutrophils 6.9 K/uL (1.8-8.0) 01/08/22 14:49 Absolute Lymphocytes 0.8 K/uL (0.7-4.9) 01/08/22 14:49 Absolute Monocytes 0.7 K/uL (0.1-1.3) 01/08/22 14:49 Absolute Eosinophils 0.0 K/uL (0-0.5) 01/08/22 14:49 Absolute Basophils 0.0 K/uL (0-0.5) 01/08/22 14:49 PT 13.2 SECONDS (9.5-12.5) H 01/08/22 14:49 INR 1.15 01/08/22 14:49 Sodium 139 mmol/L (136-145) 01/08/22 14:49 Potassium 3.1 mmol/L (3.5-5.1) L 01/08/22 14:49 Chloride 101 mmol/L (98-107) 01/08/22 14:49 Carbon Dioxide 30 mmol/L (21-32) 01/08/22 14:49 BUN 29 mg/dL (7-18) H 01/08/22 14:49 Creatinine 6.12 mg/dL (0.55-1.3) H* 01/08/22 14:49 Estimated GFR 8 mL/min (=/>90) L 01/08/22 14:49 Glucose 190 mg/dL (74-106) H 01/08/22 14:49 Lactic Acid 1.3 mmol/L (0.4-2.0) 01/08/22 18:00 Calcium 9.7 mg/dL (8.5-10.1) 01/08/22 14:49 Magnesium 2.1 mg/dL (1.8-2.4) D 01/08/22 14:49 Total Bilirubin 1.0 mg/dL (0.2-1.0) 01/08/22 14:49 Direct Bilirubin 0.6 mg/dL (0-0.2) H 01/08/22 14:49 AST 47 U/L (15-37) H 01/08/22 14:49 ALT 13 U/L (12-78) 01/08/22 14:49 Alkaline Phosphatase 69 U/L (45-117) 01/08/22 14:49 Troponin I High Sens 5974.70 pg/mL (<58.9) H* 01/08/22 14:49 NT-Pro-B Natriuret Pep 821627 pg/mL (<125) H 01/08/22 14:49 Serum Total Protein 7.2 g/dL (6.4-8.2) 01/08/22 14:49 Albumin 2.8 g/dL (3.4-5.0) L 01/08/22 14:49 Globulin 4.4 g/dL (2.3-3.5) H 01/08/22 14:49 Albumin/Globulin Ratio 0.6 (1.1-1.8) L 01/08/22 14:49 Lipase 64 U/L (73-393) L 01/08/22 14:49 SARS-CoV-2 Rap RNA(RT-PCR) Positive (NEGATIVE) A 01/08/22 14:49 Assessment And Plan - Plan Physical exam: General: In no apparent distress HEENT: Atraumatic Neck: Supple Respiratory: Other (Bibasilar crackles/rales) Cardiovascular: No edema, Regular rate/rhythm, systolic murmur Capillary refill: <2 Seconds Gastrointestinal: Normal bowel sounds, No tenderness Musculoskeletal: No clubbing, No swelling Integumentary: No rashes, No breakdown, No significant lesion Conclusions/Impression: Antibiotics Ampicillin: 01/13current Rocephin: 01/09current Vancomycin: Levaquin: Assessment/plan Gram-positive bacteremia Blood cultures obtained on 01/08 grew Enterococcus faecalis in 4/4 bottles. Additional repeat cultures obtained on 01/11 and 01/12 also positive for Enterococcus. Catheter tip culture obtained on 01/13+ for Enterococcus faecalis. Most recent blood cultures obtained on 01/14 & 01/15 show no growth at 24 hours. Source of infection-infected right dialysis catheter. Dialysis catheter was removed on 01/13. Repeat echocardiogram obtained on 01/14 showed large mitral valve vegetation new since 01/11 echo. Brain MRI on 01/14 showed multiple infarcts, likely secondary to septic emboli. Patient will need IV antibiotics for at least 6 weeks~tentative completion date of 02/25. Right femoral dialysis catheter placed on 01/19. Patient had dialysis holiday from . Continue double coverage with IV Rocephin and ampicillin. Of note patient has left PICC/midline. Unknown when this was placed as there is no documentation. Area usually covered by BP cuff. Recommend removing this line. COVID-19 PNA On low amount of oxygen via [place]. Is out of window for remdesivir therapy. Con tinue to monitor closely. Asymptomatic. Oral thrush Continue nystatin oral suspension TID Protein caloric malnutrition: Moderate Albumin significantly downtrending, per nursing staff is very difficult to give patient's oral meds/feeding due to somnolent state/altered mental status. Recommend PEG tube placement. AMS ESRD on HD CHF Hypertension -Medical management per primary team Care discussed with Dr. Jason Thank for consultation.
[2022-01-20] MEDS: CEFTRIAXONE 2,000 MG in NA CHLORIDE 0.9% 100 ML IV SCH ×2 (10:59→21:25)
[2022-01-20] MEDS: LEVETIRACETAM IV SCH ×2 (11:00→21:23)
[2022-01-20] MEDS: NA CHLORIDE 0.9% IV SCH ×2 (11:00→21:23)
[2022-01-20] MEDS: AMPICILLIN SODIUM 2 GM in NA CHLORIDE 0.9% 100 ML IVPB SCH ×2 (11:00→21:22)
--- NOTE | 2022-01-20 15:29 | RAD REPORT ---
EXAM DESCRIPTION: MRI - Brain Wo Cont - 01/20/2022 3:14 pm CLINICAL HISTORY: stroke protocol Headache, drowsiness, CVA symptomology COMPARISON: Brain Wo Cont dated 01/14/2022; MRA Head Wo Cont dated 01/20/2022 TECHNIQUE: Multi-sequence, multiplanar MR imaging of the brain was performed without contrast. FINDINGS: Several punctate new foci of restricted diffusion seen medial left cerebellar hemisphere. Indication 4 mm focal diffusion restriction lesion is present in the mid brain near the left cerebral peduncle. These are new areas of small focal infarct. Periventricular areas of CVA appear similar to the prior study. No acute bleed seen. No hydrocephalus or midline shift. IMPRESSION: Small foci new small CVA seen in the left cerebellar hemisphere as well as the midbrain near the left cerebral peduncle since the prior MR study. No hemorrhage or midline shift evident.
--- NOTE | 2022-01-20 15:41 | RAD REPORT ---
EXAM DESCRIPTION: MRI - MRA Head Wo Cont - 01/20/2022 3:15 pm CLINICAL HISTORY: stroke protocol CVA COMPARISON: Brain Wo Cont dated 01/20/2022 FINDINGS: 3D noncontrast [id number] MR angiography of the [place] was performed. The examination is motion degraded. No aneurysm, flow-limiting stenosis or vascular malformation is s een. Left vertebral artery is mildly dominant. Right vertebral artery is difficult to visualize. The visualized dural venous sinuses appear patent. IMPRESSION: No significant flow abnormality of the [place] is identified. The examination i s quite limited by motion artifact.
--- NOTE | 2022-01-20 16:10 | P.PN ---
Subjective Date of Service: 01/20/22 Chief Complaint: dizziness, weakness Patient is unresponsive today. She underwent hemodialysis yesterday. Physical Examination - Vital Signs Temperature: 97.7 F Blood Pressure: 121/67 Pulse: 69 Respirations: 18 Pulse Ox (%): 97 Assessment And Plan - Plan Physical exam GEN: NAD, AOx2, tired appearing CV: Regular rate and rhythm, no edema Pulm: Non-labored respirations on 2L NC ABD: Soft, nontender, nondistended Neuro: flaccid LUE, +sensation in LUE, AAOx2, moves b/l lower extremites R > L Problem List multiple acute CVAs Endocarditis, Enterococcus Acute hypoxemic respiratory failure secondary to COVID-19 pneumonia Acute metabolic encephalopathy secondary to bacteremia NSTEMI CAD CHF ESRD on HD DM 2 Enterococcus bacteremia with large vegetaion - likely cause of acute CVAs poor prognosis Neurology is following. Patient is on folic acid, keppra. She is on an low-dose Keppra and doubt this is causing the AMS. MRI of the brain done and the result is pending. After further discussion with neurology, risk outweighs the benefit of continuing on anticoagulation, discontinued on 01/17 family did not want patient transferred to tertiary care center, no valve surgery, no plans for PEG. Patient stated "hell no", when asked about PEG tube Patient is high risk for further thrombus formation and more CVAs Nephrology following 03/01 blood cx: Enterococcus, repeat cultures without growth since dialysis line removed. catheter tip positive for Enterococcus as well ID consulted, continue antibiotics. Temporary femoral dialysis catheter placed for hemodialysis. Hemodialysis per nephrology. Patient may need a PEG tube for feeding and medications. Code: Full
[2022-01-20] MEDS: EPOETIN ALFA 10,000 UNIT/ML VIAL SQ SCH (17:26)
--- NOTE | 2022-01-20 19:57 | P.PN ---
Date of Service: 01/20/22 Vital Signs Temp Pulse Resp BP Pulse Ox 97.7 F 69 18 121/67 97 01/20/22 16:37 01/20/22 16:37 01/20/22 16:37 01/20/22 16:37 01/20/22 16:37 Medications Acetaminophen (Acetaminophen 500 Mg Tab) 500 mg PO Q4HP PRN PRN Reason: Pain scale 2-4 (Mild) Last Admin: 01/10/22 21:52 Dose: 500 mg Documented by: Albuterol Sulfate (Albuterol 2.5 Mg/3 Ml Neb Erma) 2.5 mg NEB Q6HP PRN PRN Reason: SHORTNESS OF BREATH Atorvastatin Calcium (Atorvastatin 40 Mg Tab) 40 mg PO BEDTIME [facility] Last Admin: 01/19/22 22:42 Dose: 40 mg Documented by: Benzonatate (Benzonatate 100 Mg Cap) 100 mg PO TID PRN PRN Reason: COUGH Calcium Acetate (Calcium Acetate 667 Mg Tab) 1,334 mg PO TIDWM [facility] Last Admin: 01/20/22 12:00 Dose: Not Given Documented by: Carvedilol (Carvedilol 25 Mg Tab) 25 mg PO BID 6AM 6PM [facility] Last Admin: 01/20/22 05:57 Dose: 25 mg Documented by: Cholecalciferol (Vitamin D 5,000 Unit Cap) 5,000 unit PO DAILY [facility] Last Admin: 01/20/22 09:00 Dose: Not Given Documented by: Diphenhydramine HCl (Diphenhydramine 50 Mg/Ml Vial) 25 mg IV Q12HR [facility] Last Admin: 01/20/22 09:00 Dose: Not Given Documented by: Enteral Nutritional Formula (Nepro Shake 237 Ml Can) 237 ml PO TID [facility] Last Admin: 01/20/22 09:00 Dose: Not Given Documented by: Epoetin Tommy (Epoetin Tommy 10,000 Unit/Ml Vial) 10,000 unit SQ M,W,F [facility] Last Admin: 01/20/22 17:26 Dose: 10,000 unit Documented by: Gabapentin (Gabapentin 300 Mg Cap) 300 mg PO BID [facility] Last Admin: 01/20/22 09:00 Dose: Not Given Documented by: Heparin Sodium (Porcine) (Heparin 1,000 Unit/Ml Vial) 6,000 unit IV EVERY HD PRN PRN Reason: DIALYSIS Last Admin: 01/19/22 21:54 Dose: 6,000 unit Documented by: Hydralazine HCl (Hydralazine Hcl 20 Mg/Ml Vial) 10 mg IV Q6HP PRN PRN Reason: Titrate to SBP (MUST DEFINE) Last Admin: 01/18/22 11:31 Dose: 10 mg Documented by: Hydralazine HCl (Hydralazine Hcl 25 Mg Tablet) 50 mg PO BID [facility] Last Admin: 01/20/22 09:00 Dose: Not Given Documented by: Ampicillin Sodium 2 gm/ Sodium (Chloride) 100 mls @ 200 mls/hr IVPB Q12HR [facility] Last Admin: 01/20/22 11:00 Dose: 100 mls Documented by: Levetiracetam 125 mg/ Sodium (Chloride) 101.25 mls @ 410 mls/hr IV BID [facility] Last Admin: 01/20/22 11:00 Dose: 101.25 mls Documented by: Ceftriaxone Sodium 2,000 mg/ (Sodium Chloride) 100 mls @ 200 mls/hr IV Q12HR [facility]; Protocol Last Admin: 01/20/22 10:59 Dose: 100 mls Documented by: Insulin Human Regular (Insulin -Regular Human 50 Unit/0.5 Ml Ml) 0 unit SQ ACHS [facility]; Protocol Last Admin: 01/20/22 11:30 Dose: Not Given Documented by: Ipratropium Deane (Ipratropium Brom 0.5mg/2.5ml) 0.5 mg NEB Q6HP PRN PRN Reason: SHORTNESS OF BREATH Lactobacillus Acidoph/Bulgaricus (Lactobacillus/Acidophilus Tab) 1 tab PO TID [facility] Last Admin: 01/20/22 09:00 Dose: Not Given Documented by: Metoprolol Tartrate (Metoprolol Tar 25 Mg Tab) 25 mg PO BID 6AM 6PM [facility] Last Admin: 01/20/22 05:57 Dose: 25 mg Documented by: Nifedipine (Nifedipine Xl 30 Mg Tablet) 30 mg PO BID [facility] Last Admin: 01/20/22 09:00 Dose: Not Given Documented by: Nystatin (Nystatin 500,000 Unit/5 Ml Udc) 500,000 unit PO TID [facility] Last Admin: 01/20/22 09:00 Dose: Not Given Documented by: Ondansetron HCl (Ondansetron 4 Mg/2 Ml Vial) 4 mg IV Q6HP PRN PRN Reason: NAUSEA / VOMITING Ramipril (Ramipril 5 Mg Cap) 10 mg PO BEDTIME [facility] Last Admin: 01/19/22 21:00 Dose: 10 mg Documented by: Sodium Chloride (Flush Normal Saline 10 Ml) 10 ml IV BID [facility] Last Admin: 01/19/22 21:00 Dose: 10 ml Documented by: Thiamine HCl (Thiamine Hcl 100 Mg Tablet) 100 mg PO DAILY [facility] Last Admin: 01/20/22 09:00 Dose: Not Given Documented by: Tizanidine HCl (Tizanidine 4 Mg Tablet) 4 mg PO BID [facility] Last Admin: 01/20/22 09:00 Dose: Not Given Documented by: Microbiology Results 01/08/22 17:50 Blood - Blood Aerobic Blood Culture - Final Enterococcus Faecalis 01/08/22 17:50 Blood - Blood Blood Culture Gram Stain - Final 01/08/22 17:50 Blood - Blood Anaerobic Blood Culture - Final Enterococcus Faecalis 01/08/22 17:50 Blood - Blood Gram Stain - Final 01/08/22 18:00 Blood - Blood Aerobic Blood Culture - Final Enterococcus Faecalis 01/08/22 18:00 Blood - Blood Blood Culture Gram Stain - Final 01/08/22 18:00 Blood - Blood Anaerobic Blood Culture - Final Enterococcus Faecalis 01/08/22 18:00 Blood - Blood Gram Stain - Final Assessment/ Plan: Nephrology No dyspnea No chest pain Worsening mental status in the setting of multiple strokes No acute events overnight Vitals, medications, blood work and imaging reviewed in the chart. NAD. NCAT. MMM. Neck supple. Normal respiratory effort. RRR. Abd ND. No C/C/E. No rash. Awake. Normal speech. ESRD -HD prn HTN with CKD/ CHF -Continue Ramipril -Continue Nifedipine ER 30mg BID Diastolic CHF, chronic -Low sodium diet -Continue Coreg DM II with CKD -RISS Moderate malnutrition -Continue Nepro Anemia in CKD -Retacrit TIW CKD MBD -Continue Phoslo Toxic metabolic encephalopathy due to multiple brain infarcts Mitral vegetation/ Endocarditis/ Bacteremia -Continue abx for Enterococcus faecalis Case reviewed with Dr. Barrios Poor prognosis. EXAM DESCRIPTION: MRI - Brain Wo Cont - 01/14/2022 12:01 pm CLINICAL HISTORY: r/o stroke, left sided weakness COMPARISON: Head Brain Wo Cont dated 01/09/2022 TECHNIQUE: Sagittal T1-weighted images were obtained along with PD/heavily T2- weighted and T2-FLAIR images. Axial DWI and ADC mapping sequences were also obtained along with coronal heavily T2-weighted images were obtained. FINDINGS: Multiple bilateral infarcts identified, the largest in the body of the caudate on the right measuring 17 millimeters. There are multiple in the basal ganglia and alfredo radiata as well as some small cortical infarcts in the frontal lobes. Small infarct in the right lobe of the cerebellum. Advanced chronic small vessel ischemic changes. Cerebral atrophy. No mass effect or midline shift. Mastoid air cells and paranasal sinuses are clear. IMPRESSION: Bilateral small cortical, deep white matter, basal ganglia, and cerebellar infarcts involving multiple vascular distributions. This could be secondary to cardioembolic source.
[2022-01-20] MEDS: ATORVASTATIN 40 MG TAB PO SCH (21:00)
[2022-01-20] MEDS: ramipriL 5 MG CAP PO SCH (21:00)
[2022-01-20] MEDS: DULERA 200/5 (MOMETASONE/FORMOTEROL) INHALER IH SCH (21:00)
[2022-01-20] MEDS: HYDRALAZINE HCL 20 MG/ML VIAL IV PRN (21:24)
--- NOTE | 2022-01-21 00:04 | PN ---
Subjective: Ms. Harris is resting in bed. She is not responding much to verbal stimulation. She a ctually did try to open her eyes when asked to do so. She did move the right arm somewhat when asked to do so, but did not move the left side, arm or leg. She did not verbalize when asked to do so. Objective: Vital Signs: Blood pressure 121/67, pulse 69, respiratory rate 18, temperature 97.7, oxy gen saturation 97%. General: Ms. Harris as mentioned is lying in bed. HEENT: She does have left nasolabial fold drooping. Extremities: Left arm and leg dense weakness. Some movement noted more on the right side, upper mor e than lower extremity. Laboratory Studies: White blood cell count 8.5, hemoglobin 9.1. Chemistries show creatinine 6.88. She is on hemodialysis. Glucose ranged from 103 to 134. Her repeat brain MRI today shows additional likely cardioembolic strokes that were identified as several punctate new foci of restricted diffusi on in the medial left cerebellar hemisphere, in addition to a 4 mm diffusion restricted lesion in the mid brain near the left cerebral peduncle, and there are additional new areas of infarct. However, the periventricular areas appear to be similar to the prior study. Her MRA of the head does not show any large vessel ischemic disease. Assessment: Ms. Harris is a 61-year-old patient with worsening strokes, especially in the brainstem which will likely impair her ability to recover significantly. She does have marked dysarthria, dys phagia, and dense left-sided weakness. From review of the chart and with the patient interaction, ariel robbins does not want PEG tube placement, but that will then result in high risk of aspiration when she tri es to gain nutrition and lead to pneumonia with poor outcome. At this stage, it may be worthwhile to consider hospice given the patient's prognosis. Plan: The patient at this point may continue with medical management including antibiotics, Lipitor for dyslipidemia, management of renal failure with hemodialysis. Consider, if she will, PEG tube jacki cement and if the family wants to continue with aggressive management. She may be transferred to a assisted if the patient's family is wanting to continue with high level of care instead of hospice. LB/MODL Voice ID: [id number] Report ID: [id number]
[2022-01-21 03:42] LABS: Absolute Lymphocytes (CBC) 1.9 K/uL (0.7-4.9); Hematocrit 27.9 % (36.0-45.0); Lymphocytes % 22.5 % (15.3-44.8); MPV 7.6 fL (7.6-11.3); RBC Red Blood Cell Count 2.89 M/uL (3.86-4.86)
[2022-01-21 04:11] LABS: Albumin 2.2 g/dL (3.4-5.0); Phosphorus 4.7 mg/dL (2.5-4.9); Potassium 3.7 mmol/L (3.5-5.1)
[2022-01-21] MEDS: METOPROLOL TAR 25 MG TAB PO SCH ×2 (06:00→16:46)
[2022-01-21] MEDS: carvediloL 25 MG TAB PO SCH ×2 (06:00→16:46)
[2022-01-21] MEDS: INSULIN -REGULAR HUMAN 50 UNIT/0.5 ML ML SQ SCH ×4 (07:30→21:00)
[2022-01-21] MEDS: CEFTRIAXONE 2,000 MG in NA CHLORIDE 0.9% 100 ML IV SCH ×2 (08:20→21:18)
[2022-01-21] MEDS: NYSTATIN 500,000 UNIT/5 ML UDC PO SCH ×3 (08:21→21:00)
[2022-01-21] MEDS: DIPHENHYDRAMINE 50 MG/ML VIAL IV SCH ×2 (08:21→21:00)
[2022-01-21] MEDS: NIFEDIPINE XL 30 MG TABLET PO SCH ×2 (08:21→21:00)
[2022-01-21] MEDS: VITAMIN D 5,000 UNIT CAP PO SCH (08:22)
[2022-01-21] MEDS: CALCIUM ACETATE 667 MG TAB PO SCH ×3 (08:22→16:46)
[2022-01-21] MEDS: GABAPENTIN 300 MG CAP PO SCH ×2 (08:22→21:20)
[2022-01-21] MEDS: THIAMINE HCL 100 MG TABLET PO SCH (08:22)
[2022-01-21] MEDS: TIZANIDINE 4 MG TABLET PO SCH ×2 (08:23→21:20)
[2022-01-21] MEDS: LACTOBACILLUS/ACIDOPHILUS TAB PO SCH ×3 (08:23→21:21)
[2022-01-21] MEDS: HYDRALAZINE HCL 25 MG TABLET PO SCH ×2 (08:23→21:20)
[2022-01-21] MEDS: NEPRO SHAKE 237 ML CAN PO SCH ×3 (08:23→21:00)
[2022-01-21] MEDS: LEVETIRACETAM IV SCH ×2 (10:06→21:18)
[2022-01-21] MEDS: AMPICILLIN SODIUM 2 GM in NA CHLORIDE 0.9% 100 ML IVPB SCH ×2 (10:06→21:17)
[2022-01-21] MEDS: NA CHLORIDE 0.9% IV SCH ×2 (10:06→21:18)
--- NOTE | 2022-01-21 11:31 | P.PN ---
Subjective Date of Service: 01/21/22 Chief Complaint: dizziness, weakness Patient seen and examined at bedside, sleeping at bedside. Per nursing staff the patient was more awake and alert during breakfast for a short period of time however after completing breakfast became sleepy/lethargic and was unable to arouse. Review of Systems 10-point ROS is otherwise unremarkable Physical Examination - Vital Signs Temperature: 97.6 F Blood Pressure: 164/77 Pulse: 79 Respirations: 20 Pulse Ox (%): 98 - Studies Laboratory Last Values WBC 8.50 K/uL (4.3-10.9) 01/08/22 14:49 RBC 2.86 M/uL (3.86-4.86) L 01/08/22 14:49 Hgb 9.2 g/dL (12.0-15.0) L 01/08/22 14:49 Hct 27.8 % (36.0-45.0) L 01/08/22 14:49 MCV 97.4 fL (80-100) 01/08/22 14:49 MCH 32.3 pg (27.0-35.0) 01/08/22 14:49 MCHC 33.1 g/dL (32.0-36.0) 01/08/22 14:49 RDW 14.8 % (12.1-15.2) 01/08/22 14:49 Plt Count 125 K/uL (152-406) L 01/08/22 14:49 MPV 8.5 fL (7.6-11.3) 01/08/22 14:49 Neutrophils % 81.4 % (41.7-73.7) H 01/08/22 14:49 Lymphocytes % 9.9 % (15.3-44.8) L 01/08/22 14:49 Monocytes % 8.4 % (3.3-12.3) 01/08/22 14:49 Eosinophils % 0.0 % (0-4.4) 01/08/22 14:49 Basophils % 0.3 % (0-1.3) 01/08/22 14:49 Absolute Neutrophils 6.9 K/uL (1.8-8.0) 01/08/22 14:49 Absolute Lymphocytes 0.8 K/uL (0.7-4.9) 01/08/22 14:49 Absolute Monocytes 0.7 K/uL (0.1-1.3) 01/08/22 14:49 Absolute Eosinophils 0.0 K/uL (0-0.5) 01/08/22 14:49 Absolute Basophils 0.0 K/uL (0-0.5) 01/08/22 14:49 PT 13.2 SECONDS (9.5-12.5) H 01/08/22 14:49 INR 1.15 01/08/22 14:49 Sodium 139 mmol/L (136-145) 01/08/22 14:49 Potassium 3.1 mmol/L (3.5-5.1) L 01/08/22 14:49 Chloride 101 mmol/L (98-107) 01/08/22 14:49 Carbon Dioxide 30 mmol/L (21-32) 01/08/22 14:49 BUN 29 mg/dL (7-18) H 01/08/22 14:49 Creatinine 6.12 mg/dL (0.55-1.3) H* 01/08/22 14:49 Estimated GFR 8 mL/min (=/>90) L 01/08/22 14:49 Glucose 190 mg/dL (74-106) H 01/08/22 14:49 Lactic Acid 1.3 mmol/L (0.4-2.0) 01/08/22 18:00 Calcium 9.7 mg/dL (8.5-10.1) 01/08/22 14:49 Magnesium 2.1 mg/dL (1.8-2.4) D 01/08/22 14:49 Total Bilirubin 1.0 mg/dL (0.2-1.0) 01/08/22 14:49 Direct Bilirubin 0.6 mg/dL (0-0.2) H 01/08/22 14:49 AST 47 U/L (15-37) H 01/08/22 14:49 ALT 13 U/L (12-78) 01/08/22 14:49 Alkaline Phosphatase 69 U/L (45-117) 01/08/22 14:49 Troponin I High Sens 5974.70 pg/mL (<58.9) H* 01/08/22 14:49 NT-Pro-B Natriuret Pep 708187 pg/mL (<125) H 01/08/22 14:49 Serum Total Protein 7.2 g/dL (6.4-8.2) 01/08/22 14:49 Albumin 2.8 g/dL (3.4-5.0) L 01/08/22 14:49 Globulin 4.4 g/dL (2.3-3.5) H 01/08/22 14:49 Albumin/Globulin Ratio 0.6 (1.1-1.8) L 01/08/22 14:49 Lipase 64 U/L (73-393) L 01/08/22 14:49 SARS-CoV-2 Rap RNA(RT-PCR) Positive (NEGATIVE) A 01/08/22 14:49 Assessment And Plan - Plan Physical exam: General: In no apparent distress HEENT: Atraumatic Neck: Supple Respiratory: Other (Bibasilar crackles/rales) Cardiovascular: No edema, Regular rate/rhythm, systolic murmur Capillary refill: <2 Seconds Gastrointestinal: Normal bowel sounds, No tenderness Musculoskeletal: No clubbing, No swelling Integumentary: No rashes, No breakdown, No significant lesion Conclusions/Impression: Antibiotics Ampicillin: 01/13current Rocephin: 01/09current Vancomycin: Levaquin: Assessment/plan Gram-positive bacteremia Blood cultures obtained on 01/08 grew Enterococcus faecalis in 4/4 bottles. Additional repeat cultures obtained on 01/11 and 01/12 also positive for Enterococcus. Catheter tip culture obtained on 01/13+ for Enterococcus faecalis. Most recent blood cultures obtained on 01/14 & 01/15 show no growth at 24 hours. Source of infection-infected right dialysis catheter. Dialysis catheter was removed on 01/13. Repeat echocardiogram obtained on 01/14 showed large mitral valve vegetation new since 01/11 echo. Brain MRI on 01/14 showed multiple infarcts, likely secondary to septic emboli. Repeat MRI on 01/20 showed new CVA in left cerebral hemisphere and midbrain. Patient will need IV antibiotics for at least 6 weeks~tentative completion date of 02/25. Right femoral dialysis catheter placed on 01/19. Patient had dialysis holiday from . Continue double coverage with IV Rocephin and ampicillin. Of note patient has left PICC/midline. Unknown when this was placed as there is no documentation. Area usually covered by BP cuff. Recommend removing this line. Recommend transferring patient to different hospital for mitral valve replacement due to large size vegetation, and recurrent embolic events noted on MRI scans. COVID-19 PNA On low amount of oxygen via NC. Is out of window for remdesivir therapy. Continue to monitor closely. Asymptomatic. Oral thrush Continue nystatin oral suspension TID Protein caloric malnutrition: Moderate Albumin significantly downtrending, per nursing staff is very difficult to give patient's oral meds/feeding due to somnolent state/altered mental status. Recommend PEG tube placement. AMS ESRD on HD CHF Hypertension -Medical management per primary team Care discussed with Dr. Jason Thank for consultation.
--- NOTE | 2022-01-21 16:02 | P.PN ---
Subjective Date of Service: 01/21/22 Chief Complaint: dizziness, weakness Family state patient was more awake this morning and ate a good amount of her breakfast. MRI of the brain shows multiple new CVAs. Patient would not wake up for me this morning. She responded minimally to verbal. Physical Examination - Vital Signs Temperature: 97.4 F Blood Pressure: 93/49 Pulse: 60 Respirations: 16 Pulse Ox (%): 93 Assessment And Plan - Plan Physical exam GEN: NAD, unresponsive. CV: Regular rate and rhythm, no edema Pulm: Non-labored respirations on 2L NC, bilateral upper airway transmitted sounds. ABD: Soft, nontender, nondistended Neuro: Left-sided weakness, unresponsive. Problem List multiple acute CVAs Endocarditis, Enterococcus Acute hypoxemic respiratory failure secondary to COVID-19 pneumonia Acute metabolic encephalopathy secondary to bacteremia NSTEMI CAD CHF ESRD on HD DM 2 Enterococcus bacteremia with large vegetaion - likely cause of acute CVAs. Patient with new CVAs on MRI likely of cardiac embolic origin poor prognosis Neurology is following. Patient is on folic acid, keppra. Anticoagulation discontinued per neurology recommendation. family did not want patient transferred to tertiary care center, no valve min danii. Family initially stated no plans for PEG but may consider it if there is no option for feeding. Patient is high risk for more CVAs. Nephrology following 03/01 blood cx: Enterococcus, repeat cultures without growth since dialysis line removed. catheter tip positive for Enterococcus as well ID is managing antibiotics Temporary femoral dialysis catheter placed for hemodialysis. Hemodialysis per nephrology. Patient may need a PEG tube for feeding, maintenance hydration and medications. I discussed hospice with daughter Ms. Siddiqi. She is declining hospice because hemodialysis may have to be discontinued on hospice. Patient appeared to have waxing and waning mental status. Speech therapy to reevaluate swallow while patient is awake. Currently on pureed diet.
[2022-01-21] MEDS ORDERED: WATER FOR INJ,STERILE 10 ML IV SCH (17:00)
[2022-01-21] MEDS ORDERED: ALTEPLASE 2 MG/VIAL IV SCH (17:00)
--- NOTE | 2022-01-21 20:03 | P.PN ---
Date of Service: 01/21/22 Vital Signs Temp Pulse Resp BP Pulse Ox 97.4 F 60 16 93/49 L 93 01/21/22 16:05 01/21/22 16:05 01/21/22 16:05 01/21/22 16:05 01/21/22 16:05 Medications Acetaminophen (Acetaminophen 500 Mg Tab) 500 mg PO Q4HP PRN PRN Reason: Pain scale 2-4 (Mild) Last Admin: 01/10/22 21:52 Dose: 500 mg Documented by: Albuterol Sulfate (Albuterol 2.5 Mg/3 Ml Neb Erma) 2.5 mg NEB Q6HP PRN PRN Reason: SHORTNESS OF BREATH Atorvastatin Calcium (Atorvastatin 40 Mg Tab) 40 mg PO BEDTIME [facility] Last Admin: 01/20/22 21:00 Dose: Not Given Documented by: Benzonatate (Benzonatate 100 Mg Cap) 100 mg PO TID PRN PRN Reason: COUGH Calcium Acetate (Calcium Acetate 667 Mg Tab) 1,334 mg PO TIDWM [facility] Last Admin: 01/21/22 16:46 Dose: Not Given Documented by: Carvedilol (Carvedilol 25 Mg Tab) 25 mg PO BID 6AM 6PM [facility] Last Admin: 01/21/22 16:46 Dose: Not Given Documented by: Cholecalciferol (Vitamin D 5,000 Unit Cap) 5,000 unit PO DAILY [facility] Last Admin: 01/21/22 08:22 Dose: 5,000 unit Documented by: Diphenhydramine HCl (Diphenhydramine 50 Mg/Ml Vial) 25 mg IV Q12HR [facility] Last Admin: 01/21/22 08:21 Dose: 25 mg Documented by: Enteral Nutritional Formula (Nepro Shake 237 Ml Can) 237 ml PO TID [facility] Last Admin: 01/21/22 14:00 Dose: Not Given Documented by: Epoetin Tommy (Epoetin Tommy 10,000 Unit/Ml Vial) 10,000 unit SQ M,W,F [facility] Last Admin: 01/20/22 17:26 Dose: 10,000 unit Documented by: Gabapentin (Gabapentin 300 Mg Cap) 300 mg PO BID [facility] Last Admin: 01/21/22 08:22 Dose: 300 mg Documented by: Heparin Sodium (Porcine) (Heparin 1,000 Unit/Ml Vial) 6,000 unit IV EVERY HD PRN PRN Reason: DIALYSIS Last Admin: 01/19/22 21:54 Dose: 6,000 unit Documented by: Hydralazine HCl (Hydralazine Hcl 20 Mg/Ml Vial) 10 mg IV Q6HP PRN PRN Reason: Titrate to SBP (MUST DEFINE) Last Admin: 01/20/22 21:24 Dose: 10 mg Documented by: Hydralazine HCl (Hydralazine Hcl 25 Mg Tablet) 50 mg PO BID [facility] Last Admin: 01/21/22 08:23 Dose: 50 mg Documented by: Ampicillin Sodium 2 gm/ Sodium (Chloride) 100 mls @ 200 mls/hr IVPB Q12HR [facility] Last Admin: 01/21/22 10:06 Dose: 100 mls Documented by: Levetiracetam 125 mg/ Sodium (Chloride) 101.25 mls @ 410 mls/hr IV BID [facility] Last Admin: 01/21/22 10:06 Dose: 101.25 mls Documented by: Ceftriaxone Sodium 2,000 mg/ (Sodium Chloride) 100 mls @ 200 mls/hr IV Q12HR [facility]; Protocol Last Admin: 01/21/22 08:20 Dose: 100 mls Documented by: Insulin Human Regular (Insulin -Regular Human 50 Unit/0.5 Ml Ml) 0 unit SQ ACHS [facility]; Protocol Last Admin: 01/21/22 16:30 Dose: Not Given Documented by: Ipratropium [place] (Ipratropium Brom 0.5mg/2.5ml) 0.5 mg NEB Q6HP PRN PRN Reason: SHORTNESS OF BREATH Lactobacillus Acidoph/Bulgaricus (Lactobacillus/Acidophilus Tab) 1 tab PO TID [facility] Last Admin: 01/21/22 14:00 Dose: Not Given Documented by: Metoprolol Tartrate (Metoprolol Tar 25 Mg Tab) 25 mg PO BID 6AM 6PM [facility] Last Admin: 01/21/22 16:46 Dose: Not Given Documented by: Nifedipine (Nifedipine Xl 30 Mg Tablet) 30 mg PO BID [facility] Last Admin: 01/21/22 08:21 Dose: 30 mg Documented by: Nystatin (Nystatin 500,000 Unit/5 Ml Udc) 500,000 unit PO TID [facility] Last Admin: 01/21/22 14:00 Dose: Not Given Documented by: Ondansetron HCl (Ondansetron 4 Mg/2 Ml Vial) 4 mg IV Q6HP PRN PRN Reason: NAUSEA / VOMITING Ramipril (Ramipril 5 Mg Cap) 10 mg PO BEDTIME [facility] Last Admin: 01/20/22 21:00 Dose: Not Given Documented by: Sodium Chloride (Flush Normal Saline 10 Ml) 10 ml IV BID [facility] Last Admin: 01/21/22 08:24 Dose: 10 ml Documented by: Thiamine HCl (Thiamine Hcl 100 Mg Tablet) 100 mg PO DAILY [facility] Last Admin: 01/21/22 08:22 Dose: 100 mg Documented by: Tizanidine HCl (Tizanidine 4 Mg Tablet) 4 mg PO BID [facility] Last Admin: 01/21/22 08:23 Dose: 4 mg Documented by: Microbiology Results 01/08/22 17:50 Blood - Blood Aerobic Blood Culture - Final Enterococcus Faecalis 01/08/22 17:50 Blood - Blood Blood Culture Gram Stain - Final 01/08/22 17:50 Blood - Blood Anaerobic Blood Culture - Final Enterococcus Faecalis 01/08/22 17:50 Blood - Blood Gram Stain - Final 01/08/22 18:00 Blood - Blood Aerobic Blood Culture - Final Enterococcus Faecalis 01/08/22 18:00 Blood - Blood Blood Culture Gram Stain - Final 01/08/22 18:00 Blood - Blood Anaerobic Blood Culture - Final Enterococcus Faecalis 01/08/22 18:00 Blood - Blood Gram Stain - Final Assessment/ Plan: Nephrology No dyspnea No chest pain Waxing and waning mental status. Case reviewed with her daughter. No acute events overnight Vitals, medications, blood work and imaging reviewed in the chart. NAD. NCAT. MMM. Neck supple. Normal respiratory effort. RRR. Abd ND. No C/C/E. No rash. Awake. Normal speech. 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 EXAM DESCRIPTION: MRI - Brain Wo Cont - 01/14/2022 12:01 pm CLINICAL HISTORY: r/o stroke, left sided weakness COMPARISON: Head Brain Wo Cont dated 01/09/2022 TECHNIQUE: Sagittal T1-weighted images were obtained along with PD/heavily T2- weighted and T2-FLAIR images. Axial DWI and ADC mapping sequences were also obtained along with coronal heavily T2-weighted images were obtained. FINDINGS: Multiple bilateral infarcts identified, the largest in the body of the caudate on the right measuring 17 millimeters. There are multiple in the basal ganglia and alfredo radiata as well as some small cortical infarcts in the frontal lobes. Small infarct in the right lobe of the cerebellum. Advanced chronic small vessel ischemic changes. Cerebral atrophy. No mass effect or midline shift. Mastoid air cells and paranasal sinuses are clear. IMPRESSION: Bilateral small cortical, deep white matter, basal ganglia, and cerebellar infarcts involving multiple vascular distributions. This could be secondary to cardioembolic source.
[2022-01-21] MEDS ORDERED: NA CHLORIDE 0.9% 100 ML ONE (20:35)
[2022-01-21] MEDS: DULERA 200/5 (MOMETASONE/FORMOTEROL) INHALER IH SCH (21:00)
[2022-01-21] MEDS: ramipriL 5 MG CAP PO SCH (21:36)
[2022-01-21] MEDS: ATORVASTATIN 40 MG TAB PO SCH (22:32)
[2022-01-22 04:50] LABS: Phosphorus 5.5 mg/dL (2.5-4.9)
[2022-01-22] MEDS: METOPROLOL TAR 25 MG TAB PO SCH ×2 (05:52→17:22)
[2022-01-22] MEDS: carvediloL 25 MG TAB PO SCH ×2 (05:52→17:22)
[2022-01-22] MEDS: DULERA 200/5 (MOMETASONE/FORMOTEROL) INHALER IH SCH (05:52)
[2022-01-22] MEDS: INSULIN -REGULAR HUMAN 50 UNIT/0.5 ML ML SQ SCH ×4 (07:30→21:00)
[2022-01-22] MEDS: CALCIUM ACETATE 667 MG TAB PO SCH ×3 (08:00→17:23)
[2022-01-22] MEDS: NA CHLORIDE 0.9% IV SCH ×2 (09:00→21:04)
[2022-01-22] MEDS: VITAMIN D 5,000 UNIT CAP PO SCH (09:00)
[2022-01-22] MEDS: HYDRALAZINE HCL 25 MG TABLET PO SCH ×2 (09:00→21:03)
[2022-01-22] MEDS: NIFEDIPINE XL 30 MG TABLET PO SCH ×2 (09:00→21:00)
[2022-01-22] MEDS: LEVETIRACETAM IV SCH ×2 (09:00→21:04)
[2022-01-22] MEDS: LACTOBACILLUS/ACIDOPHILUS TAB PO SCH ×3 (09:00→21:03)
[2022-01-22] MEDS: GABAPENTIN 300 MG CAP PO SCH ×2 (09:00→21:04)
[2022-01-22] MEDS: TIZANIDINE 4 MG TABLET PO SCH ×2 (09:00→21:00)
[2022-01-22] MEDS: NYSTATIN 500,000 UNIT/5 ML UDC PO SCH ×3 (09:00→21:01)
[2022-01-22] MEDS: DIPHENHYDRAMINE 50 MG/ML VIAL IV SCH ×2 (09:00→21:02)
[2022-01-22] MEDS: AMPICILLIN SODIUM 2 GM in NA CHLORIDE 0.9% 100 ML IVPB SCH ×2 (09:00→20:59)
[2022-01-22] MEDS: NEPRO SHAKE 237 ML CAN PO SCH ×3 (09:00→21:00)
[2022-01-22] MEDS: THIAMINE HCL 100 MG TABLET PO SCH (09:00)
[2022-01-22] MEDS: CEFTRIAXONE 2,000 MG in NA CHLORIDE 0.9% 100 ML IV SCH ×2 (09:00→21:01)
[2022-01-22] MEDS: HYDRALAZINE HCL 20 MG/ML VIAL IV PRN (14:27)
--- NOTE | 2022-01-22 14:54 | P.PN ---
Subjective Date of Service: 01/22/22 Chief Complaint: dizziness, weakness Patient seen and examined at bedside, recived HD today. More awake and alert today as well, states that she needs to go to the hospital. I talked with her and told her she was in fact and the hospital and she was safe and receiving treatment. Review of Systems 10-point ROS is otherwise unremarkable Physical Examination - Vital Signs Temperature: 97.7 F Blood Pressure: 176/78 Pulse: 64 Respirations: 18 Pulse Ox (%): 100 - Studies Laboratory Last Values WBC 8.50 K/uL (4.3-10.9) 01/08/22 14:49 RBC 2.86 M/uL (3.86-4.86) L 01/08/22 14:49 Hgb 9.2 g/dL (12.0-15.0) L 01/08/22 14:49 Hct 27.8 % (36.0-45.0) L 01/08/22 14:49 MCV 97.4 fL (80-100) 01/08/22 14:49 MCH 32.3 pg (27.0-35.0) 01/08/22 14:49 MCHC 33.1 g/dL (32.0-36.0) 01/08/22 14:49 RDW 14.8 % (12.1-15.2) 01/08/22 14:49 Plt Count 125 K/uL (152-406) L 01/08/22 14:49 MPV 8.5 fL (7.6-11.3) 01/08/22 14:49 Neutrophils % 81.4 % (41.7-73.7) H 01/08/22 14:49 Lymphocytes % 9.9 % (15.3-44.8) L 01/08/22 14:49 Monocytes % 8.4 % (3.3-12.3) 01/08/22 14:49 Eosinophils % 0.0 % (0-4.4) 01/08/22 14:49 Basophils % 0.3 % (0-1.3) 01/08/22 14:49 Absolute Neutrophils 6.9 K/uL (1.8-8.0) 01/08/22 14:49 Absolute Lymphocytes 0.8 K/uL (0.7-4.9) 01/08/22 14:49 Absolute Monocytes 0.7 K/uL (0.1-1.3) 01/08/22 14:49 Absolute Eosinophils 0.0 K/uL (0-0.5) 01/08/22 14:49 Absolute Basophils 0.0 K/uL (0-0.5) 01/08/22 14:49 PT 13.2 SECONDS (9.5-12.5) H 01/08/22 14:49 INR 1.15 01/08/22 14:49 Sodium 139 mmol/L (136-145) 01/08/22 14:49 Potassium 3.1 mmol/L (3.5-5.1) L 01/08/22 14:49 Chloride 101 mmol/L (98-107) 01/08/22 14:49 Carbon Dioxide 30 mmol/L (21-32) 01/08/22 14:49 BUN 29 mg/dL (7-18) H 01/08/22 14:49 Creatinine 6.12 mg/dL (0.55-1.3) H* 01/08/22 14:49 Estimated GFR 8 mL/min (=/>90) L 01/08/22 14:49 Glucose 190 mg/dL (74-106) H 01/08/22 14:49 Lactic Acid 1.3 mmol/L (0.4-2.0) 01/08/22 18:00 Calcium 9.7 mg/dL (8.5-10.1) 01/08/22 14:49 Magnesium 2.1 mg/dL (1.8-2.4) D 01/08/22 14:49 Total Bilirubin 1.0 mg/dL (0.2-1.0) 01/08/22 14:49 Direct Bilirubin 0.6 mg/dL (0-0.2) H 01/08/22 14:49 AST 47 U/L (15-37) H 01/08/22 14:49 ALT 13 U/L (12-78) 01/08/22 14:49 Alkaline Phosphatase 69 U/L (45-117) 01/08/22 14:49 Troponin I High Sens 5974.70 pg/mL (<58.9) H* 01/08/22 14:49 NT-Pro-B Natriuret Pep 763938 pg/mL (<125) H 01/08/22 14:49 Serum Total Protein 7.2 g/dL (6.4-8.2) 01/08/22 14:49 Albumin 2.8 g/dL (3.4-5.0) L 01/08/22 14:49 Globulin 4.4 g/dL (2.3-3.5) H 01/08/22 14:49 Albumin/Globulin Ratio 0.6 (1.1-1.8) L 01/08/22 14:49 Lipase 64 U/L (73-393) L 01/08/22 14:49 SARS-CoV-2 Rap RNA(RT-PCR) Positive (NEGATIVE) A 01/08/22 14:49 Assessment And Plan - Plan Physical exam: General: In no apparent distress HEENT: Atraumatic Neck: Supple Respiratory: Other (Bibasilar crackles/rales) Cardiovascular: No edema, Regular rate/rhythm, systolic murmur Capillary refill: <2 Seconds Gastrointestinal: Normal bowel sounds, No tenderness Musculoskeletal: No clubbing, No swelling Integumentary: No rashes, No breakdown, No significant lesion Conclusions/Impression: Antibiotics Ampicillin: 01/13current Rocephin: 01/09current Vancomycin: Levaquin: Assessment/plan Gram-positive bacteremia Blood cultures obtained on 01/08 grew Enterococcus faecalis in 4/4 bottles. Additional repeat cultures obtained on 01/11 and 01/12 also positive for Enterococcus. Catheter tip culture obtained on 01/13+ for Enterococcus faecalis. Most recent blood cultures obtained on 01/14, 01/15, & 01/21 show no growth at 24 hours. Source of infection-infected right dialysis catheter. Dialysis catheter was removed on 01/13. Repeat echocardiogram obtained on 01/14 showed large mitral valve vegetation new since 01/11 echo. Brain MRI on 01/14 showed multiple infarcts, likely secondary to septic emboli. Repeat MRI on 01/20 showed new CVA in left cerebral hemisphere and midbrain. Patient will need IV antibiotics for at least 6 weeks~tentative completion date of 02/25. Right femoral dialysis catheter placed on 01/19. Patient had dialysis holiday from . Continue double coverage with IV Rocephin and ampicillin. Of note patient has left midline. Unknown when this was placed as there is no documentation--working with nursing staff to determine when this was placed. Area usually covered by BP cuff. Recommend removing this line. Recommend transferring patient to different hospital for mitral valve replacement due to large size vegetation, and recurrent embolic events noted on MRI scans. COVID-19 PNA On low amount of oxygen via NC. Is out of window for remdesivir therapy. Continue to monitor closely. Asymptomatic. Oral thrush Continue nystatin oral suspension TID Protein caloric malnutrition: Moderate Albumin significantly downtrending, per nursing staff is very difficult to give patient's oral meds/feeding due to somnolent state/altered mental status. Recommend PEG tube placement. AMS DM ESRD on HD CHF Hypertension -Medical management per primary team Care discussed with Dr. Eren Bettencourt for consultation.
--- NOTE | 2022-01-22 16:04 | P.PN ---
Subjective Date of Service: 01/22/22 Chief Complaint: dizziness, weakness Patient with waxing and waning mental status. She underwent hemodialysis today. No recorded fever. Physical Examination - Vital Signs Temperature: 97.7 F Blood Pressure: 176/78 Pulse: 64 Respirations: 18 Pulse Ox (%): 100 Assessment And Plan - Plan Physical exam GEN: NAD, unresponsive. CV: Regular rate and rhythm, no edema Pulm: Non-labored respirations on 2L NC, bilateral upper airway transmitted sounds. ABD: Soft, nontender, nondistended Neuro: Left-sided weakness, unresponsive. Problem List multiple acute CVAs Endocarditis, Enterococcus Acute hypoxemic respiratory failure secondary to COVID-19 pneumonia Acute metabolic encephalopathy secondary to bacteremia NSTEMI CAD CHF ESRD on HD DM 2 Enterococcus bacteremia with large vegetaion - likely cause of acute CVAs. Patient with new CVAs on MRI likely of cardiac embolic origin poor prognosis Neurology is following. Patient is on folic acid, keppra. Anticoagulation discontinued per neurology recommendation. family did not want patient transferred to tertiary care center, no valve surgery. Family initially stated no plans for PEG but may consider it if there is no option for feeding. Patient is high risk for more CVAs. Nephrology following 03/01 blood cx: Enterococcus, repeat cultures without growth since dialysis line removed. catheter tip positive for Enterococcus as well ID is managing antibiotics Temporary femoral dialysis catheter placed for hemodialysis. Hemodialysis per nephrology. Patient may need a PEG tube for feeding, maintenance hydration and medications. I discussed hospice with daughter Ms. Siddiqi. She is declining hospice because hemodialysis may have to be discontinued on hospice. I am told by the manager social she may be able to continue hemodialysis on hospice. Patient with no LTAC coverage from her insurance. Patient appeared to have waxing and waning mental status. Speech therapy to reevaluate swallow while patient is awake. Currently on pureed diet as tolerated. Continue IV antibiotics-IV Rocephin and ampicillin. Awaiting family to make a decision regarding PEG tube placement versus hospice.
[2022-01-22] MEDS: EPOETIN ALFA 10,000 UNIT/ML VIAL SQ SCH (17:22)
[2022-01-22] MEDS ORDERED: NA CHLORIDE 0.9% 100 ML ONE (20:47)
[2022-01-22] MEDS: ATORVASTATIN 40 MG TAB PO SCH (21:00)
[2022-01-22] MEDS: ramipriL 5 MG CAP PO SCH (21:02)
[2022-01-22] MEDS: BENZONATATE 100 MG CAP PO PRN (21:03)
--- NOTE | 2022-01-22 21:31 | P.PN ---
Date of Service: 01/22/22 Vital Signs Temp Pulse Resp BP Pulse Ox 98.4 F 76 20 162/79 H 100 01/22/22 20:00 01/22/22 21:02 01/22/22 20:00 01/22/22 21:02 01/22/22 20:00 Medications Acetaminophen (Acetaminophen 500 Mg Tab) 500 mg PO Q4HP PRN PRN Reason: Pain scale 2-4 (Mild) Last Admin: 01/10/22 21:52 Dose: 500 mg Documented by: Albuterol Sulfate (Albuterol 2.5 Mg/3 Ml Neb Erma) 2.5 mg NEB Q6HP PRN PRN Reason: SHORTNESS OF BREATH Atorvastatin Calcium (Atorvastatin 40 Mg Tab) 40 mg PO BEDTIME [facility] Last Admin: 01/22/22 21:00 Dose: 40 mg Documented by: Benzonatate (Benzonatate 100 Mg Cap) 100 mg PO TID PRN PRN Reason: COUGH Last Admin: 01/22/22 21:03 Dose: 100 mg Documented by: Calcium Acetate (Calcium Acetate 667 Mg Tab) 1,334 mg PO TIDWM [facility] Last Admin: 01/22/22 17:23 Dose: 1,334 mg Documented by: Carvedilol (Carvedilol 25 Mg Tab) 25 mg PO BID 6AM 6PM [facility] Last Admin: 01/22/22 17:22 Dose: 25 mg Documented by: Cholecalciferol (Vitamin D 5,000 Unit Cap) 5,000 unit PO DAILY [facility] Last Admin: 01/22/22 09:00 Dose: Not Given Documented by: Diphenhydramine HCl (Diphenhydramine 50 Mg/Ml Vial) 25 mg IV Q12HR [facility] Last Admin: 01/22/22 21:02 Dose: 25 mg Documented by: Enteral Nutritional Formula (Nepro Shake 237 Ml Can) 237 ml PO TID [facility] Last Admin: 01/22/22 21:00 Dose: Not Given Documented by: Epoetin Tommy (Epoetin [place] 10,000 Unit/Ml Vial) 10,000 unit SQ M,W,F [facility] Last Admin: 01/22/22 17:22 Dose: 10,000 unit Documented by: Gabapentin (Gabapentin 300 Mg Cap) 300 mg PO BID [facility] Last Admin: 01/22/22 21:04 Dose: 300 mg Documented by: Heparin Sodium (Porcine) (Heparin 1,000 Unit/Ml Vial) 6,000 unit IV EVERY HD PRN PRN Reason: DIALYSIS Last Admin: 01/22/22 13:50 Dose: 6,000 unit Documented by: Hydralazine HCl (Hydralazine Hcl 20 Mg/Ml Vial) 10 mg IV Q6HP PRN PRN Reason: Titrate to SBP (MUST DEFINE) Last Admin: 01/22/22 14:27 Dose: 10 mg Documented by: Hydralazine HCl (Hydralazine Hcl 25 Mg Tablet) 50 mg PO BID [facility] Last Admin: 01/22/22 21:03 Dose: 50 mg Documented by: Ampicillin Sodium 2 gm/ Sodium (Chloride) 100 mls @ 200 mls/hr IVPB Q12HR [facility] Last Admin: 01/22/22 20:59 Dose: 100 mls Documented by: Levetiracetam 125 mg/ Sodium (Chloride) 101.25 mls @ 410 mls/hr IV BID [facility] Last Admin: 01/22/22 21:04 Dose: 101.25 mls Documented by: Ceftriaxone Sodium 2,000 mg/ (Sodium Chloride) 100 mls @ 200 mls/hr IV Q12HR [facility]; Protocol Last Admin: 01/22/22 21:01 Dose: 100 mls Documented by: Insulin Human Regular (Insulin -Regular Human 50 Unit/0.5 Ml Ml) 0 unit SQ ACHS [facility]; Protocol Last Admin: 01/22/22 21:00 Dose: Not Given Documented by: Ipratropium [place] (Ipratropium Brom 0.5mg/2.5ml) 0.5 mg NEB Q6HP PRN PRN Reason: SHORTNESS OF BREATH Lactobacillus Acidoph/Bulgaricus (Lactobacillus/Acidophilus Tab) 1 tab PO TID [facility] Last Admin: 01/22/22 21:03 Dose: 1 tab Documented by: Metoprolol Tartrate (Metoprolol Tar 25 Mg Tab) 25 mg PO BID 6AM 6PM [facility] Last Admin: 01/22/22 17:22 Dose: 25 mg Documented by: Nifedipine (Nifedipine Xl 30 Mg Tablet) 30 mg PO BID [facility] Last Admin: 01/22/22 21:00 Dose: 30 mg Documented by: Nystatin (Nystatin 500,000 Unit/5 Ml Udc) 500,000 unit PO TID [facility] Last Admin: 01/22/22 21:01 Dose: 500,000 unit Documented by: Ondansetron HCl (Ondansetron 4 Mg/2 Ml Vial) 4 mg IV Q6HP PRN PRN Reason: NAUSEA / VOMITING Ramipril (Ramipril 5 Mg Cap) 10 mg PO BEDTIME [facility] Last Admin: 01/22/22 21:02 Dose: 10 mg Documented by: Sodium Chloride (Flush Normal Saline 10 Ml) 10 ml IV BID [facility] Last Admin: 01/22/22 21:00 Dose: 10 ml Documented by: Thiamine HCl (Thiamine Hcl 100 Mg Tablet) 100 mg PO DAILY [facility] Last Admin: 01/22/22 09:00 Dose: Not Given Documented by: Tizanidine HCl (Tizanidine 4 Mg Tablet) 4 mg PO BID [facility] Last Admin: 01/22/22 21:00 Dose: 4 mg Documented by: Microbiology Results 01/08/22 17:50 Blood - Blood Aerobic Blood Culture - Final Enterococcus Faecalis 01/08/22 17:50 Blood - Blood Blood Culture Gram Stain - Final 01/08/22 17:50 Blood - Blood Anaerobic Blood Culture - Final Enterococcus Faecalis 01/08/22 17:50 Blood - Blood Gram Stain - Final 01/08/22 18:00 Blood - Blood Aerobic Blood Culture - Final Enterococcus Faecalis 01/08/22 18:00 Blood - Blood Blood Culture Gram Stain - Final 01/08/22 18:00 Blood - Blood Anaerobic Blood Culture - Final Enterococcus Faecalis 01/08/22 18:00 Blood - Blood Gram Stain - Final Assessment/ Plan: Nephrology No dyspnea No chest pain Improving appetite Waxing and waning mental status. Case reviewed with her daughter. No acute events overnight Vitals, medications, blood work and imaging reviewed in the chart. NAD. NCAT. MMM. Neck supple. Normal respiratory effort. RRR. Abd ND. No C/C/E. No rash. Awake. Normal speech. ESRD -HD today HTN with CKD/ CHF -Continue Ramipril -Continue Nifedipine ER 30mg BID Diastolic CHF, chronic -Low sodium diet -Continue Coreg DM II with CKD -RISS Moderate malnutrition -Continue Nepro Anemia in CKD -Retacrit TIW CKD MBD -Continue Phoslo Toxic metabolic encephalopathy due to multiple brain infarcts Mitral vegetation/ Endocarditis/ Bacteremia -Continue abx for Enterococcus faecalis EXAM DESCRIPTION: MRI - Brain Wo Cont - 01/14/2022 12:01 pm CLINICAL HISTORY: r/o stroke, left sided weakness COMPARISON: Head Brain Wo Cont dated 01/09/2022 TECHNIQUE: Sagittal T1-weighted images were obtained along with PD/heavily T2- weighted and T2-FLAIR images. Axial DWI and ADC mapping sequences were also obt ained along with coronal heavily T2-weighted images were obtained. FINDINGS: Multiple bilateral infarcts identified, the largest in the body of the caudate on the right measuring 17 millimeters. There are multiple in the basal ganglia and alfredo radiata as well as some small cortical infarcts in the frontal lobes. Small infarct in the right lobe of the cerebellum. Advanced chronic small vessel ischemic changes. Cerebral atrophy. No mass effect or midline shift. Mastoid air cells and paranasal sinuses are clear. IMPRESSION: Bilateral small cortical, deep white matter, basal ganglia, and cerebellar infarcts involving multiple vascular distributions. This could be secondary to cardioembolic source.
[2022-01-23 05:53] LABS: Albumin 2.3 g/dL (3.4-5.0); Phosphorus 3.7 mg/dL (2.5-4.9)
[2022-01-23] MEDS: METOPROLOL TAR 25 MG TAB PO SCH ×2 (06:45→17:54)
[2022-01-23] MEDS: carvediloL 25 MG TAB PO SCH ×2 (06:46→17:51)
[2022-01-23] MEDS: INSULIN -REGULAR HUMAN 50 UNIT/0.5 ML ML SQ SCH ×4 (07:30→21:00)
[2022-01-23] MEDS: NEPRO SHAKE 237 ML CAN PO SCH ×3 (09:00→21:00)
[2022-01-23] MEDS: NA CHLORIDE 0.9% IV SCH ×2 (09:51→21:15)
[2022-01-23] MEDS: AMPICILLIN SODIUM 2 GM in NA CHLORIDE 0.9% 100 ML IVPB SCH ×2 (09:51→21:14)
[2022-01-23] MEDS: CEFTRIAXONE 2,000 MG in NA CHLORIDE 0.9% 100 ML IV SCH ×2 (09:51→21:16)
[2022-01-23] MEDS: LEVETIRACETAM IV SCH ×2 (09:51→21:15)
[2022-01-23] MEDS: NIFEDIPINE XL 30 MG TABLET PO SCH ×2 (09:53→21:13)
[2022-01-23] MEDS: GABAPENTIN 300 MG CAP PO SCH ×2 (09:54→21:13)
[2022-01-23] MEDS: THIAMINE HCL 100 MG TABLET PO SCH (09:55)
[2022-01-23] MEDS: VITAMIN D 5,000 UNIT CAP PO SCH (09:55)
[2022-01-23] MEDS: HYDRALAZINE HCL 25 MG TABLET PO SCH ×2 (09:55→21:14)
[2022-01-23] MEDS: CALCIUM ACETATE 667 MG TAB PO SCH ×3 (09:55→17:19)
[2022-01-23] MEDS: LACTOBACILLUS/ACIDOPHILUS TAB PO SCH ×3 (09:55→21:12)
[2022-01-23] MEDS: TIZANIDINE 4 MG TABLET PO SCH ×2 (09:55→21:13)
[2022-01-23] MEDS: DIPHENHYDRAMINE 50 MG/ML VIAL IV SCH ×2 (09:56→21:12)
[2022-01-23] MEDS: NYSTATIN 500,000 UNIT/5 ML UDC PO SCH ×3 (09:57→21:14)
--- NOTE | 2022-01-23 14:19 | P.PN ---
Subjective Date of Service: 01/23/22 Chief Complaint: dizziness, weakness Patient is more awake and interactive today. She underwent hemodialysis yesterday. No recorded fever. Physical Examination - Vital Signs Temperature: 98.2 F Blood Pressure: 133/62 Pulse: 73 Respirations: 16 Pulse Ox (%): 99 Assessment And Plan - Plan Physical exam GEN: NAD, unresponsive. CV: Regular rate and rhythm, no edema Pulm: Non-labored respirations on 2L NC, bilateral upper airway transmitted sounds. ABD: Soft, nontender, nondistended Neuro: Left-sided weakness, unresponsive. Problem List multiple acute CVAs Endocarditis, Enterococcus Acute hypoxemic respiratory failure secondary to COVID-19 pneumonia Acute metabolic encephalopathy secondary to bacteremia NSTEMI CAD CHF ESRD on HD DM 2 Enterococcus bacteremia with large vegetaion - likely cause of acute CVAs. Patient with new CVAs on MRI likely of cardiac embolic origin poor prognosis Neurology is following. Patient is on folic acid, keppra. Anticoagulation discontinued per neurology recommendation. family did not want patient transferred to tertiary care center, no valve surgery. Family initially stated no plans for PEG but may consider it if there is no option for feeding. Patient is high risk for more CVAs. Nephrology following 03/01 blood cx: Enterococcus, repeat cultures without growth since dialysis line removed. catheter tip positive for Enterococcus as well ID is managing antibiotics Temporary femoral dialysis catheter placed for hemodialysis. Hemodialysis per nephrology. Patient may need a PEG tube for feeding, maintenance hydration and medications. I discussed hospice with daughter Ms. Siddiqi. She declined hospice because hemodialysis may have to be discontinued on hospice. I am told by the home health care social worker hospice may be able to continue hemodialysis depending on hospice diagnosis. Patient with no LTAC coverage from her insurance. Patient appeared to have waxing and waning mental status. She has been more awake today. Speech therapy to reevaluate swallow while patient is awake. Currently on pureed diet and patient is tolerating it as long as she is awake, Continue IV antibiotics-IV Rocephin and ampicillin.
--- NOTE | 2022-01-23 20:50 | PN ---
Date of Progress Note: 01/23/2022 Subjective: The patient is alert, but not able to answer questions. She does open her eyes, seems t o have a slight bit of droop, seems to not be responsive to commands or to follow instructions. This seems to be her baseline. Reviewing the notes, she has had waxing and waning of her mental status. Also, she has had, what seems to be, strokes. She has had removal of her catheter and a new cathete r to the groin had been placed and patient has been dialyzed with that. Last dialysis was yesterday. The patient tolerated that well. Her electrolytes and lab work seem reasonable. Her blood pressur e seems reasonable. The patient seems to have brain infarcts, perhaps also with ongoing infection, n ow question of endocarditis bacteremia. The patient at this point seems to be stable from the Nephro logy point of view. Objective: Vital Signs: Her blood pressure is reasonable at 133/62, pulse about 73, respirations ar ound 16, afebrile. Lungs: Clear anteriorly. Abdomen: Soft. Extremities: Revealed trace to no edema. Heart: Heart sounds are regular. Patient has a femoral catheter on the right side. The area looks clean and dry. There is no bleeding or drainage from that area. Laboratory Data: Her lab work reviewed. WBC count 8.3, hemoglobin 9.1, hematocrit 27.9, platelet co unt 213. Sodium 138, potassium 4.0, chloride 105, bicarb 28, BUN 16, creatinine 5.91. Assessment And Plan: 1.End-stage renal disease. Patient has had dialysis yesterday. Discussed with the dialysis nurse. We will plan to dialyze again Tuesday if the patient continues to stay clinically stable from the hem odynamic point of view. No need for acute dialysis today. 2.Hypertension. Blood pressure reasonably controlled. Continue on current medications and monitor. 3.Congestive heart failure. Patient's volume status seems reasonable at this point. Continue to mo nitor. Ultrafiltration for dialysis to keep close to EDW. 4.Diabetes on management with insulin as needed. I will need to be careful as patient may not be ta nathalia much p.o. intake. Continue to monitor clinically. 5.Malnutrition, on supplement. 6.Anemia. The patient's hemoglobin currently reasonably stable at about 9.1. Retacrit p.r.n. in ad dition getting t.i.w. Retacrit. 7.Toxic metabolic encephalopathy, history of multiinfarct, brain injury, currently with minimum abil ity to interact and communicate and give answers and follow commands. Does open her eyes and does se em to be alert, but does have waxing and waning mentation. Difficult to assess completely as patient is uncooperative with physical exam. /CHANO Voice ID: [id number] Report ID: [id number]
[2022-01-23] MEDS: ATORVASTATIN 40 MG TAB PO SCH (21:00)
[2022-01-23] MEDS: DULERA 200/5 (MOMETASONE/FORMOTEROL) INHALER IH SCH (21:00)
[2022-01-23] MEDS: ramipriL 5 MG CAP PO SCH (21:12)
[2022-01-23] MEDS: BENZONATATE 100 MG CAP PO PRN (21:13)
[2022-01-24] MEDS: METOPROLOL TAR 25 MG TAB PO SCH ×2 (05:46→17:34)
[2022-01-24] MEDS: carvediloL 25 MG TAB PO SCH ×2 (05:46→17:35)
[2022-01-24 05:59] LABS: Albumin 2.2 g/dL (3.4-5.0); Phosphorus 5.1 mg/dL (2.5-4.9); Potassium 4.4 mmol/L (3.5-5.1)
[2022-01-24] MEDS: INSULIN -REGULAR HUMAN 50 UNIT/0.5 ML ML SQ SCH ×4 (07:30→21:00)
[2022-01-24] MEDS: NEPRO SHAKE 237 ML CAN PO SCH ×3 (09:00→21:00)
[2022-01-24] MEDS: VITAMIN D 5,000 UNIT CAP PO SCH (09:43)
[2022-01-24] MEDS: TIZANIDINE 4 MG TABLET PO SCH ×2 (09:43→21:43)
[2022-01-24] MEDS: LACTOBACILLUS/ACIDOPHILUS TAB PO SCH ×3 (09:43→21:43)
[2022-01-24] MEDS: CALCIUM ACETATE 667 MG TAB PO SCH ×3 (09:43→17:35)
[2022-01-24] MEDS: NIFEDIPINE XL 30 MG TABLET PO SCH ×2 (09:43→21:45)
[2022-01-24] MEDS: GABAPENTIN 300 MG CAP PO SCH ×2 (09:43→21:43)
[2022-01-24] MEDS: THIAMINE HCL 100 MG TABLET PO SCH (09:43)
[2022-01-24] MEDS: HYDRALAZINE HCL 25 MG TABLET PO SCH ×2 (09:44→21:43)
[2022-01-24] MEDS: CEFTRIAXONE 2,000 MG in NA CHLORIDE 0.9% 100 ML IV SCH ×2 (09:44→21:41)
[2022-01-24] MEDS: AMPICILLIN SODIUM 2 GM in NA CHLORIDE 0.9% 100 ML IVPB SCH ×2 (09:44→21:40)
[2022-01-24] MEDS: NA CHLORIDE 0.9% IV SCH ×2 (09:45→21:44)
[2022-01-24] MEDS: DIPHENHYDRAMINE 50 MG/ML VIAL IV SCH ×2 (09:45→21:43)
[2022-01-24] MEDS: LEVETIRACETAM IV SCH ×2 (09:45→21:44)
[2022-01-24] MEDS: NYSTATIN 500,000 UNIT/5 ML UDC PO SCH ×3 (09:46→21:42)
--- NOTE | 2022-01-24 16:18 | P.PN ---
Subjective Date of Service: 01/24/22 Chief Complaint: dizziness, weakness Patient is more awake and ate 50% of her breakfast. She responds to call but response is slow. Physical Examination - Vital Signs Temperature: 97.8 F Blood Pressure: 139/68 Pulse: 69 Respirations: 16 Pulse Ox (%): 98 Assessment And Plan - Plan Physical exam GEN: NAD, unresponsive. CV: Regular rate and rhythm, no edema Pulm: bilateral upper airway transmitted sounds. ABD: Soft, nontender, nondistended Neuro: Left-sided weakness, unresponsive. Problem List multiple acute CVAs Endocarditis, Enterococcus Acute hypoxemic respiratory failure secondary to COVID-19 pneumonia Acute metabolic encephalopathy secondary to bacteremia NSTEMI CAD CHF ESRD on HD DM 2 Enterococcus bacteremia with large vegetation - likely cause of acute CVAs. Patient with new CVAs on MRI likely of cardiac embolic origin poor prognosis Neurology is following. Patient is on folic acid, keppra. Anticoagulation discontinued per neurology recommendation. family did not want patient transferred to tertiary care center, no valve surgery. Family initially stated no plans for PEG but may consider it if there is no option for feeding. Patient is high risk for more CVAs. Nephrology following 03/01 blood cx: Enterococcus, repeat cultures without growth since dialysis line removed. catheter tip positive for Enterococcus as well ID is managing antibiotics Temporary femoral dialysis catheter placed for hemodialysis. Hemodialysis per nephrology. Patient is eating 50% of her meals. No need for PEG at the moment. I discussed hospice with daughter Ms. Siddiqi. She declined hospice because hemodialysis may have to be discontinued on hospice. I am told by the social group worker hospice may be able to continue hemodialysis depending on hospice diagnosis. Patient with no LTAC coverage from her insurance. Patient appeared to have waxing and waning mental status. She has been more awake today. Speech therapy to reevaluate swallow while patient is awake. Currently on pureed diet and patient is tolerating it as long as she is awake, Continue IV antibiotics-IV Rocephin and ampicillin. She may need long-term care placement.
--- NOTE | 2022-01-24 16:29 | PN ---
Date of Progress Note: 01/24/2022 Subjective: The patient is seen in room 409 at [facility]. The patient is alert , but noncommunicative. She has a little bit of drooling. Nurses tell me that she did eat her break fast this morning. She is not interactive, unable to follow commands well. Objective: Vital Signs: Blood pressure seems reasonable at about 139/68 last. Her pulse is around 70 and regular, respirations around 14 to 16. The patient looks comfortable. O2 sats are 98% on lexi m air. Lungs: Clear anteriorly. Abdomen: Soft. Extremities: Do not reveal any edema. Heart: Sounds are regular. Medications: Reviewed. Laboratory Data: Labs reviewed. The patient's labs show hemoglobin and hematocrit 9.1 and 27.9 on ebruary . Chemistries from today show sodium 141, potassium 4.4, chloride 108, bicarb is 27, BUN 25, creatinine 7.39, estimated GFR based on this lab work is 7; however, this was not exactly accura te and perhaps is lower because the patient was dialyzed on Tuesday. Assessment And Plan: 1.End-stage renal disease. The patient with guarded condition, nonverbal, aphasic. Continue with c areful dialysis. Dialysis is planned for Tuesday. Dialysis orders are in the chart. 2.Hypertension. Blood pressure is under reasonable control. Continue with current medications and monitoring. 3.Congestive heart failure. The patient's volume status is close to euvolemic at this point. Encou rage p.o. intake and monitor. 4.Malnutrition. The patient is being assisted with eating and food intake is being monitored. 5.Anemia. The patient has been on Retacrit. Her hemoglobin is stable, close to 9. We will continue Retacrit with dialysis. Condition overall guarded. /CHANO Voice ID: [id number] Report ID: [id number]
[2022-01-24] MEDS ORDERED: NA CHLORIDE 0.9% 100 ML ONE ×2 (21:32)
[2022-01-24] MEDS: DULERA 200/5 (MOMETASONE/FORMOTEROL) INHALER IH SCH (21:42)
[2022-01-24] MEDS: ramipriL 5 MG CAP PO SCH (21:43)
[2022-01-24] MEDS: ATORVASTATIN 40 MG TAB PO SCH (22:17)
[2022-01-25 04:39] LABS: Albumin 2.1 g/dL (3.4-5.0); Potassium 4.5 mmol/L (3.5-5.1)
[2022-01-25] MEDS: carvediloL 25 MG TAB PO SCH ×2 (06:00→17:44)
[2022-01-25] MEDS: METOPROLOL TAR 25 MG TAB PO SCH ×2 (06:00→17:43)
[2022-01-25] MEDS: INSULIN -REGULAR HUMAN 50 UNIT/0.5 ML ML SQ SCH ×4 (07:30→20:44)
[2022-01-25] MEDS: CALCIUM ACETATE 667 MG TAB PO SCH ×3 (08:00→17:00)
[2022-01-25] MEDS: THIAMINE HCL 100 MG TABLET PO SCH (09:00)
[2022-01-25] MEDS: NYSTATIN 500,000 UNIT/5 ML UDC PO SCH ×3 (09:00→20:39)
[2022-01-25] MEDS: LEVETIRACETAM IV SCH ×2 (09:00→20:37)
[2022-01-25] MEDS: GABAPENTIN 300 MG CAP PO SCH ×2 (09:00→20:42)
[2022-01-25] MEDS: LACTOBACILLUS/ACIDOPHILUS TAB PO SCH ×3 (09:00→20:42)
[2022-01-25] MEDS: NIFEDIPINE XL 30 MG TABLET PO SCH ×2 (09:00→20:40)
[2022-01-25] MEDS: HYDRALAZINE HCL 25 MG TABLET PO SCH ×2 (09:00→20:41)
[2022-01-25] MEDS: DULERA 200/5 (MOMETASONE/FORMOTEROL) INHALER IH SCH ×2 (09:00→21:00)
[2022-01-25] MEDS: VITAMIN D 5,000 UNIT CAP PO SCH (09:00)
[2022-01-25] MEDS: NA CHLORIDE 0.9% IV SCH ×2 (09:00→20:37)
[2022-01-25] MEDS: DIPHENHYDRAMINE 50 MG/ML VIAL IV SCH ×2 (09:00→20:42)
[2022-01-25] MEDS: NEPRO SHAKE 237 ML CAN PO SCH ×3 (09:00→20:44)
[2022-01-25] MEDS: AMPICILLIN SODIUM 2 GM in NA CHLORIDE 0.9% 100 ML IVPB SCH ×2 (09:00→20:38)
[2022-01-25] MEDS: TIZANIDINE 4 MG TABLET PO SCH ×2 (09:00→20:40)
[2022-01-25] MEDS: CEFTRIAXONE 2,000 MG in NA CHLORIDE 0.9% 100 ML IV SCH ×2 (09:00→20:39)
[2022-01-25] MEDS: HYDRALAZINE HCL 20 MG/ML VIAL IV PRN (11:26)
[2022-01-25] MEDS: EPOETIN ALFA 10,000 UNIT/ML VIAL SQ SCH (17:44)
--- NOTE | 2022-01-25 17:53 | P.PN ---
Subjective Date of Service: 01/25/22 Chief Complaint: dizziness, weakness No major changes from yesterday. Patient oral intake has improved. She is aphasic and has psychomotor retardation. Physical Examination - Vital Signs Temperature: 98.1 F Blood Pressure: 189/88 Pulse: 86 Respirations: 16 Pulse Ox (%): 100 Assessment And Plan - Plan Physical exam GEN: NAD, unresponsive. CV: Regular rate and rhythm, no edema Pulm: bilateral upper airway transmitted sounds. ABD: Soft, nontender, nondistended Neuro: Left-sided weakness, awake and respond verbally but with low volume and repetitions. Problem List multiple acute CVAs Endocarditis, Enterococcus Acute hypoxemic respiratory failure secondary to COVID-19 pneumonia Acute metabolic encephalopathy secondary to bacteremia NSTEMI CAD CHF ESRD on HD DM 2 Enterococcus bacteremia with large vegetation - likely cause of acute CVAs. Patient with new CVAs on MRI likely of cardiac embolic origin poor prognosis Seen by neurology. Patient is on folic acid, keppra. Anticoagulation discontinued per neurology recommendation. Family did not want patient transferred to tertiary care center, no valve surgery. Family initially stated no plans for PEG but may consider it if there is no option for feeding. Patient is high risk for more CVAs. Nephrology following 03/01 blood cx: Enterococcus, repeat cultures without growth since dialysis line removed. catheter tip positive for Enterococcus as well ID is managing antibiotics Temporary femoral dialysis catheter placed for hemodialysis. Hemodialysis per nephrology. General surgery informed to reevaluate for permanent dialysis catheter placement. Her oral intake has improved. No need for PEG at the moment. I discussed hospice with daughter Ms. Siddiqi. She declined hospice because hemodialysis may have to be discontinued on hospice. I am told by the transition social worker hospice may be able to continue hemodialysis depending on hospice diagnosis. Patient with no LTAC coverage from her insurance. Patient appear to have waxing and waning mental status. She has been more awake over the last few days. Currently on pureed diet and patient is tolerating it as long as she is awake, Continue IV antibiotics-IV Rocephin and ampicillin. She may need long-term care placement. Social service/CM on the case and assisting with discharge planning.
[2022-01-25] MEDS ORDERED: NA CHLORIDE 0.9% 100 ML ONE ×2 (20:03→20:13)
[2022-01-25] MEDS: ramipriL 5 MG CAP PO SCH (20:41)
[2022-01-25] MEDS: ATORVASTATIN 40 MG TAB PO SCH (20:43)
--- NOTE | 2022-01-25 22:34 | P.PN ---
Date of Service: 01/25/22 Vital Signs Temp Pulse Resp BP Pulse Ox 98.1 F 86 16 189/88 H 100 01/25/22 17:53 01/25/22 20:41 01/25/22 17:53 01/25/22 20:41 01/25/22 17:53 Medications Acetaminophen (Acetaminophen 500 Mg Tab) 500 mg PO Q4HP PRN PRN Reason: Pain scale 2-4 (Mild) Last Admin: 01/10/22 21:52 Dose: 500 mg Documented by: Albuterol Sulfate (Albuterol 2.5 Mg/3 Ml Neb Erma) 2.5 mg NEB Q6HP PRN PRN Reason: SHORTNESS OF BREATH Atorvastatin Calcium (Atorvastatin 40 Mg Tab) 40 mg PO BEDTIME [facility] Last Admin: 01/25/22 20:43 Dose: 40 mg Documented by: Benzonatate (Benzonatate 100 Mg Cap) 100 mg PO TID PRN PRN Reason: COUGH Last Admin: 01/23/22 21:13 Dose: 100 mg Documented by: Calcium Acetate (Calcium Acetate 667 Mg Tab) 1,334 mg PO TIDWM [facility] Last Admin: 01/25/22 17:00 Dose: Not Given Documented by: Carvedilol (Carvedilol 25 Mg Tab) 25 mg PO BID 6AM 6PM [facility] Last Admin: 01/25/22 17:44 Dose: 25 mg Documented by: Cholecalciferol (Vitamin D 5,000 Unit Cap) 5,000 unit PO DAILY [facility] Last Admin: 01/25/22 09:00 Dose: Not Given Documented by: Diphenhydramine HCl (Diphenhydramine 50 Mg/Ml Vial) 25 mg IV Q12HR [facility] Last Admin: 01/25/22 20:42 Dose: 25 mg Documented by: Enteral Nutritional Formula (Nepro Shake 237 Ml Can) 237 ml PO TID [facility] Last Admin: 01/25/22 20:44 Dose: Not Given Documented by: Epoetin Tommy (Epoetin Tommy 10,000 Unit/Ml Vial) 10,000 unit SQ M,W,F [facility] Last Admin: 01/25/22 17:44 Dose: 10,000 unit Documented by: Gabapentin (Gabapentin 300 Mg Cap) 300 mg PO BID [facility] Last Admin: 01/25/22 20:42 Dose: 300 mg Documented by: Heparin Sodium (Porcine) (Heparin 1,000 Unit/Ml Vial) 6,000 unit IV EVERY HD PRN PRN Reason: DIALYSIS Last Admin: 01/25/22 14:50 Dose: 6,000 unit Documented by: Hydralazine HCl (Hydralazine Hcl 20 Mg/Ml Vial) 10 mg IV Q6HP PRN PRN Reason: Titrate to SBP (MUST DEFINE) Last Admin: 01/25/22 11:26 Dose: 10 mg Documented by: Hydralazine HCl (Hydralazine Hcl 25 Mg Tablet) 50 mg PO BID [facility] Last Admin: 01/25/22 20:41 Dose: 50 mg Documented by: Ampicillin Sodium 2 gm/ Sodium (Chloride) 100 mls @ 200 mls/hr IVPB Q12HR [facility] Last Admin: 01/25/22 20:38 Dose: 100 mls Documented by: Levetiracetam 125 mg/ Sodium (Chloride) 101.25 mls @ 410 mls/hr IV BID [facility] Last Admin: 01/25/22 20:37 Dose: 101.25 mls Documented by: Ceftriaxone Sodium 2,000 mg/ (Sodium Chloride) 100 mls @ 200 mls/hr IV Q12HR [facility]; Protocol Last Admin: 01/25/22 20:39 Dose: 100 mls Documented by: Insulin Human Regular (Insulin -Regular Human 50 Unit/0.5 Ml Ml) 0 unit SQ ACHS [facility]; Protocol Last Admin: 01/25/22 20:44 Dose: Not Given Documented by: Ipratropium [place] (Ipratropium Brom 0.5mg/2.5ml) 0.5 mg NEB Q6HP PRN PRN Reason: SHORTNESS OF BREATH Lactobacillus Acidoph/Bulgaricus (Lactobacillus/Acidophilus Tab) 1 tab PO TID [facility] Last Admin: 01/25/22 20:42 Dose: 1 tab Documented by: Metoprolol Tartrate (Metoprolol Tar 25 Mg Tab) 25 mg PO BID 6AM 6PM [facility] Last Admin: 01/25/22 17:43 Dose: 25 mg Documented by: Nifedipine (Nifedipine Xl 30 Mg Tablet) 30 mg PO BID [facility] Last Admin: 01/25/22 20:40 Dose: 30 mg Documented by: Nystatin (Nystatin 500,000 Unit/5 Ml Udc) 500,000 unit PO TID [facility] Last Admin: 01/25/22 20:39 Dose: 500,000 unit Documented by: Ondansetron HCl (Ondansetron 4 Mg/2 Ml Vial) 4 mg IV Q6HP PRN PRN Reason: NAUSEA / VOMITING Ramipril (Ramipril 5 Mg Cap) 10 mg PO BEDTIME [facility] Last Admin: 01/25/22 20:41 Dose: 10 mg Documented by: Sodium Chloride (Flush Normal Saline 10 Ml) 10 ml IV BID [facility] Last Admin: 01/25/22 20:44 Dose: 10 ml Documented by: Thiamine HCl (Thiamine Hcl 100 Mg Tablet) 100 mg PO DAILY [facility] Last Admin: 01/25/22 09:00 Dose: Not Given Documented by: Tizanidine HCl (Tizanidine 4 Mg Tablet) 4 mg PO BID [facility] Last Admin: 01/25/22 20:40 Dose: 4 mg Documented by: Microbiology Results 01/08/22 17:50 Blood - Blood Aerobic Blood Culture - Final Enterococcus Faecalis 01/08/22 17:50 Blood - Blood Blood Culture Gram Stain - Final 01/08/22 17:50 Blood - Blood Anaerobic Blood Culture - Final Enterococcus Faecalis 01/08/22 17:50 Blood - Blood Gram Stain - Final 01/08/22 18:00 Blood - Blood Aerobic Blood Culture - Final Enterococcus Faecalis 01/08/22 18:00 Blood - Blood Blood Culture Gram Stain - Final 01/08/22 18:00 Blood - Blood Anaerobic Blood Culture - Final Enterococcus Faecalis 01/08/22 18:00 Blood - Blood Gram Stain - Final Assessment/ Plan: Nephrology No dyspnea No chest pain Improving appetite Waxing and waning mental status No acute events overnight Vitals, medications, blood work and imaging reviewed in the chart. NAD. NCAT. MMM. Neck supple. Normal respiratory effort. RRR. Abd ND. No C/C/E. No rash. Awake. Normal speech. ESRD -HD today -Plan for tunneled CVC soon HTN with CKD/ CHF -Continue Ramipril -Continue Nifedipine ER 30mg BID Diastolic CHF, chronic -Low sodium diet -Continue Coreg DM II with CKD -RISS Moderate malnutrition -Continue Nepro Anemia in CKD -Retacrit TIW CKD MBD -Continue Phoslo Toxic metabolic encephalopathy due to multiple brain infarcts Mitral vegetation/ Endocarditis/ Bacteremia -Continue abx for Enterococcus faecalis EXAM DESCRIPTION: MRI - Brain Wo Cont - 01/14/2022 12:01 pm CLINICAL HISTORY: r/o stroke, left sided weakness COMPARISON: Head Brain Wo Cont dated 01/09/2022 TECHNIQUE: Sagittal T1-weighted images were obtained along with PD/heavily T2- weighted and T2-FLAIR images. Axial DWI and ADC mapping sequences were also obtained along with coronal heavily T2-weighted images were obtained. FINDINGS: Multiple bilateral infarcts identified, the largest in the body of the caudate on the right measuring 17 millimeters. There are multiple in the basal ganglia and alfredo radiata as well as some small cortical infarcts in the frontal lobes. Small infarct in the right lobe of the cerebellum. Advanced chronic small vessel ischemic changes. Cerebral atrophy. No mass effect or midline shift. Mastoid air cells and paranasal sinuses are clear. IMPRESSION: Bilateral small cortical, deep white matter, basal ganglia, and cerebellar infarcts involving multiple vascular distributions. This could be secondary to cardioembolic source.
[2022-01-26 04:00] LABS: Hematocrit 30.2 % (36.0-45.0); RBC Red Blood Cell Count 3.09 M/uL (3.86-4.86)
[2022-01-26 04:33] LABS: Albumin 2.1 g/dL (3.4-5.0); Magnesium 2.3 mg/dL (1.8-2.4); Phosphorus 5.2 mg/dL (2.5-4.9); Potassium 4.1 mmol/L (3.5-5.1)
[2022-01-26] MEDS: carvediloL 25 MG TAB PO SCH ×2 (06:00→18:00)
[2022-01-26] MEDS: METOPROLOL TAR 25 MG TAB PO SCH ×2 (06:00→18:16)
--- NOTE | 2022-01-26 06:34 | P.PN ---
Date of Service: 01/26/22 Subjective: no acute events overnight patient lethargic, minimal verbal response, squeezes right hand when asked ROS: difficult to obtain Physical exam GEN: NAD, minimally responsive, squeezes R hand when asked, mumbles CV: Regular rate and rhythm, no edema Pulm: Non-labored respirations on 2L NC ABD: Soft, nontender, nondistended Neuro: L sided weakness, awake, mumbles, squeezes right hand Problem List multiple acute CVAs Endocarditis, Enterococcus Acute hypoxemic respiratory failure secondary to COVID-19 pneumonia Acute metabolic encephalopathy secondary to bacteremia NSTEMI CAD CHF ESRD on HD DM 2 Enterococcus bacteremia with large vegetaion - likely cause of acute CVAs poor prognosis, more CVAs last week neurology consulted, on folic acid, keppra. Patient has remained stable (Keppra dose reduced 1 week ago due to patient's lethargy) family did not want patient transferred to tertiary care center, no valve surgery, no plans for PEG. Patient previously stated "hell no", when asked a bout PEG tube discussed patient is extremely high risk to continue to form thrombi and lead to more CVAs s/p dialysis cath removal on 01/13, and now s/p temporary femoral catheter placement 03/01 blood cx: Enterococcus, repeat cultures without growth since dialysis line removed ID consulted, continue antibiotics hospice discussed with daughter, states not ready to decide on patient's fate. Discussed patient has continued to have more CVAs since initial MRI findings > 1 week ago. will need permanent dialysis catheter placement and PICC line, and may not be getting enough nutrition via PO either. Daughter states they really need to force her to eat patient continues with waxing/waning mental status dialysis and continued antibiotics unlikely to improve her current situation secondary to multiple CVAs. Patient does not remember she had strokes / remember conversation from last week tentative plan for HD catheter later this week Code: Full Dispo: prolonged hospitalization family would want home, however patient may be too high need. no LTAC coverage from insurance Hospice seems most appropriate for patient at this time. Family to discuss further. Otherwise may need long-term placement Time Spent Managing Pts Care (In Minutes): 35
[2022-01-26] MEDS: INSULIN -REGULAR HUMAN 50 UNIT/0.5 ML ML SQ SCH ×4 (07:30→21:00)
[2022-01-26] MEDS ORDERED: NA CHLORIDE 0.9% 100 ML ONE (07:51)
[2022-01-26] MEDS ORDERED: NA CHLORIDE 0.9% 250 ML ONE (08:08)
[2022-01-26] MEDS: AMPICILLIN SODIUM 2 GM in NA CHLORIDE 0.9% 100 ML IVPB SCH ×2 (08:59→21:07)
[2022-01-26] MEDS: LEVETIRACETAM IV SCH ×2 (09:00→21:08)
[2022-01-26] MEDS: DULERA 200/5 (MOMETASONE/FORMOTEROL) INHALER IH SCH ×2 (09:00→21:11)
[2022-01-26] MEDS: NEPRO SHAKE 237 ML CAN PO SCH ×3 (09:00→21:00)
[2022-01-26] MEDS: NA CHLORIDE 0.9% IV SCH ×2 (09:00→21:08)
[2022-01-26] MEDS: CEFTRIAXONE 2,000 MG in NA CHLORIDE 0.9% 100 ML IV SCH ×2 (09:00→21:08)
[2022-01-26] MEDS: NIFEDIPINE XL 30 MG TABLET PO SCH ×2 (09:01→21:09)
[2022-01-26] MEDS: GABAPENTIN 300 MG CAP PO SCH ×2 (09:01→21:09)
[2022-01-26] MEDS: TIZANIDINE 4 MG TABLET PO SCH ×2 (09:02→21:09)
[2022-01-26] MEDS: VITAMIN D 5,000 UNIT CAP PO SCH (09:02)
[2022-01-26] MEDS: CALCIUM ACETATE 667 MG TAB PO SCH ×3 (09:02→18:16)
[2022-01-26] MEDS: HYDRALAZINE HCL 25 MG TABLET PO SCH ×2 (09:02→21:10)
[2022-01-26] MEDS: LACTOBACILLUS/ACIDOPHILUS TAB PO SCH ×3 (09:02→21:09)
[2022-01-26] MEDS: NYSTATIN 500,000 UNIT/5 ML UDC PO SCH ×3 (09:02→21:10)
[2022-01-26] MEDS: THIAMINE HCL 100 MG TABLET PO SCH (09:02)
[2022-01-26] MEDS: DIPHENHYDRAMINE 50 MG/ML VIAL IV SCH ×2 (09:02→21:10)
--- NOTE | 2022-01-26 11:36 | P.PN ---
Subjective Date of Service: 01/26/22 Chief Complaint: dizziness, weakness Patient seen and examined at bedside, WBC within normal range. Review of Systems 10-point ROS is otherwise unremarkable Physical Examination - Vital Signs Temperature: 98.1 F Blood Pressure: 144/68 Pulse: 68 Respirations: 16 Pulse Ox (%): 100 - Studies Laboratory Last Values WBC 8.50 K/uL (4.3-10.9) 01/08/22 14:49 RBC 2.86 M/uL (3.86-4.86) L 01/08/22 14:49 Hgb 9.2 g/dL (12.0-15.0) L 01/08/22 14:49 Hct 27.8 % (36.0-45.0) L 01/08/22 14:49 MCV 97.4 fL (80-100) 01/08/22 14:49 MCH 32.3 pg (27.0-35.0) 01/08/22 14:49 MCHC 33.1 g/dL (32.0-36.0) 01/08/22 14:49 RDW 14.8 % (12.1-15.2) 01/08/22 14:49 Plt Count 125 K/uL (152-406) L 01/08/22 14:49 MPV 8.5 fL (7.6-11.3) 01/08/22 14:49 Neutrophils % 81.4 % (41.7-73.7) H 01/08/22 14:49 Lymphocytes % 9.9 % (15.3-44.8) L 01/08/22 14:49 Monocytes % 8.4 % (3.3-12.3) 01/08/22 14:49 Eosinophils % 0.0 % (0-4.4) 01/08/22 14:49 Basophils % 0.3 % (0-1.3) 01/08/22 14:49 Absolute Neutrophils 6.9 K/uL (1.8-8.0) 01/08/22 14:49 Absolute Lymphocytes 0.8 K/uL (0.7-4.9) 01/08/22 14:49 Absolute Monocytes 0.7 K/uL (0.1-1.3) 01/08/22 14:49 Absolute Eosinophils 0.0 K/uL (0-0.5) 01/08/22 14:49 Absolute Basophils 0.0 K/uL (0-0.5) 01/08/22 14:49 PT 13.2 SECONDS (9.5-12.5) H 01/08/22 14:49 INR 1.15 01/08/22 14:49 Sodium 139 mmol/L (136-145) 01/08/22 14:49 Potassium 3.1 mmol/L (3.5-5.1) L 01/08/22 14:49 Chloride 101 mmol/L (98-107) 01/08/22 14:49 Carbon Dioxide 30 mmol/L (21-32) 01/08/22 14:49 BUN 29 mg/dL (7-18) H 01/08/22 14:49 Creatinine 6.12 mg/dL (0.55-1.3) H* 01/08/22 14:49 Estimated GFR 8 mL/min (=/>90) L 01/08/22 14:49 Glucose 190 mg/dL (74-106) H 01/08/22 14:49 Lactic Acid 1.3 mmol/L (0.4-2.0) 01/08/22 18:00 Calcium 9.7 mg/dL (8.5-10.1) 01/08/22 14:49 Magnesium 2.1 mg/dL (1.8-2.4) D 01/08/22 14:49 Total Bilirubin 1.0 mg/dL (0.2-1.0) 01/08/22 14:49 Direct Bilirubin 0.6 mg/dL (0-0.2) H 01/08/22 14:49 AST 47 U/L (15-37) H 01/08/22 14:49 ALT 13 U/L (12-78) 01/08/22 14:49 Alkaline Phosphatase 69 U/L (45-117) 01/08/22 14:49 Troponin I High Sens 5974.70 pg/mL (<58.9) H* 01/08/22 14:49 NT-Pro-B Natriuret Pep 857310 pg/mL (<125) H 01/08/22 14:49 Serum Total Protein 7.2 g/dL (6.4-8.2) 01/08/22 14:49 Albumin 2.8 g/dL (3.4-5.0) L 01/08/22 14:49 Globulin 4.4 g/dL (2.3-3.5) H 01/08/22 14:49 Albumin/Globulin Ratio 0.6 (1.1-1.8) L 01/08/22 14:49 Lipase 64 U/L (73-393) L 01/08/22 14:49 SARS-CoV-2 Rap RNA(RT-PCR) Positive (NEGATIVE) A 01/08/22 14:49 Assessment And Plan - Plan Physical exam: General: In no apparent distress HEENT: Atraumatic Neck: Supple Respiratory: Other (Bibasilar crackles/rales) Cardiovascular: No edema, Regular rate/rhythm, systolic murmur Capillary refill: <2 Seconds Gastrointestinal: Normal bowel sounds, No tenderness Musculoskeletal: No clubbing, No swelling Integumentary: No rashes, No breakdown, No significant lesion Conclusions/Impression: Antibiotics Ampicillin: 01/13current Rocephin: 01/09current Vancomycin: Levaquin: Assessment/plan Gram-positive bacteremia Blood cultures obtained on 01/08 grew Enterococcus faecalis in 4/4 bottles. Additional repeat cultures obtained on 01/11 and 01/12 also positive for Enterococcus. Catheter tip culture obtained on 01/13+ for Enterococcus faecalis. Most recent blood cultures obtained on 01/14, 01/15, & 01/21 show no growth at 24 hours. Source of infection-infected right dialysis catheter. Dialysis catheter was removed on 01/13. Repeat echocardiogram obtained on 01/14 showed large mitral valve vegetation new since 01/11 echo. Brain MRI on 01/14 showed multiple infarcts, likely secondary to septic emboli. Repeat MRI on 01/20 showed new CVA in left cerebral hemisphere and midbrain. Patient will need IV antibiotics for at least 6 weeks~tentative completion date of 02/25. Right femoral dialysis catheter placed on 01/19. Patient had dialysis holiday from . Continue double coverage with IV Rocephin and ampicillin. Of note patient has left midline. Unknown when this was placed as there is no documentation--working with nursing staff to determine when this was placed. Area usually covered by BP cuff. Recommend removing this line. Recommend transferring patient to different hospital for mitral valve replacement due to large size vegetation, and recurrent embolic events noted on MRI scans. COVID-19 PNA On low amount of oxygen via NC. Is out of window for remdesivir therapy. Continue to monitor closely. Asymptomatic. Oral thrush Continue nystatin oral suspension TID Protein caloric malnutrition: Moderate Albumin significantly downtrending, per nursing staff is very difficult to give patient's oral meds/feeding due to somnolent state/altered mental status. Recommend PEG tube placement. AMS DM ESRD on HD CHF Hypertension -Medical management per primary team Care discussed with Dr. Jason Thank for consultation.
[2022-01-26] MEDS: NICOTINE 7 MG/PAT TD SCH (13:45)
--- NOTE | 2022-01-26 19:38 | P.PN ---
Date of Service: 01/26/22 Vital Signs Temp Pulse Resp BP Pulse Ox 97.2 F 68 18 112/56 L 100 01/26/22 16:00 01/26/22 18:16 01/26/22 16:00 01/26/22 18:16 01/26/22 16:00 Medications Acetaminophen (Acetaminophen 500 Mg Tab) 500 mg PO Q4HP PRN PRN Reason: Pain scale 2-4 (Mild) Last Admin: 01/10/22 21:52 Dose: 500 mg Documented by: Albuterol Sulfate (Albuterol 2.5 Mg/3 Ml Neb Erma) 2.5 mg NEB Q6HP PRN PRN Reason: SHORTNESS OF BREATH Atorvastatin Calcium (Atorvastatin 40 Mg Tab) 40 mg PO BEDTIME [facility] Last Admin: 01/25/22 20:43 Dose: 40 mg Documented by: Benzonatate (Benzonatate 100 Mg Cap) 100 mg PO TID PRN PRN Reason: COUGH Last Admin: 01/23/22 21:13 Dose: 100 mg Documented by: Calcium Acetate (Calcium Acetate 667 Mg Tab) 1,334 mg PO TIDWM [facility] Last Admin: 01/26/22 18:16 Dose: 1,334 mg Documented by: Carvedilol (Carvedilol 25 Mg Tab) 25 mg PO BID 6AM 6PM [facility] Last Admin: 01/26/22 18:00 Dose: 25 mg Documented by: Cholecalciferol (Vitamin D 5,000 Unit Cap) 5,000 unit PO DAILY [facility] Last Admin: 01/26/22 09:02 Dose: 5,000 unit Documented by: Diphenhydramine HCl (Diphenhydramine 50 Mg/Ml Vial) 25 mg IV Q12HR [facility] Last Admin: 01/26/22 09:02 Dose: 25 mg Documented by: Enteral Nutritional Formula (Nepro Shake 237 Ml Can) 237 ml PO TID [facility] Last Admin: 01/26/22 13:18 Dose: Not Given Documented by: Epoetin Tommy (Epoetin Tommy 10,000 Unit/Ml Vial) 10,000 unit SQ M,W,F [facility] Last Admin: 01/25/22 17:44 Dose: 10,000 unit Documented by: Gabapentin (Gabapentin 300 Mg Cap) 300 mg PO BID [facility] Last Admin: 01/26/22 09:01 Dose: 300 mg Documented by: Heparin Sodium (Porcine) (Heparin 1,000 Unit/Ml Vial) 6,000 unit IV EVERY HD PRN PRN Reason: DIALYSIS Last Admin: 01/25/22 14:50 Dose: 6,000 unit Documented by: Hydralazine HCl (Hydralazine Hcl 20 Mg/Ml Vial) 10 mg IV Q6HP PRN PRN Reason: Titrate to SBP (MUST DEFINE) Last Admin: 01/25/22 11:26 Dose: 10 mg Documented by: Hydralazine HCl (Hydralazine Hcl 25 Mg Tablet) 50 mg PO BID [facility] Last Admin: 01/26/22 09:02 Dose: 50 mg Documented by: Ampicillin Sodium 2 gm/ Sodium (Chloride) 100 mls @ 200 mls/hr IVPB Q12HR [facility] Last Admin: 01/26/22 08:59 Dose: 100 mls Documented by: Levetiracetam 125 mg/ Sodium (Chloride) 101.25 mls @ 410 mls/hr IV BID [facility] Last Admin: 01/26/22 09:00 Dose: 101.25 mls Documented by: Ceftriaxone Sodium 2,000 mg/ (Sodium Chloride) 100 mls @ 200 mls/hr IV Q12HR [facility]; Protocol Last Admin: 01/26/22 09:00 Dose: 100 mls Documented by: Insulin Human Regular (Insulin -Regular Human 50 Unit/0.5 Ml Ml) 0 unit SQ ACHS [facility]; Protocol Last Admin: 01/26/22 16:30 Dose: Not Given Documented by: Ipratropium [place] (Ipratropium Brom 0.5mg/2.5ml) 0.5 mg NEB Q6HP PRN PRN Reason: SHORTNESS OF BREATH Lactobacillus Acidoph/Bulgaricus (Lactobacillus/Acidophilus Tab) 1 tab PO TID [facility] Last Admin: 01/26/22 13:28 Dose: 1 tab Documented by: Metoprolol Tartrate (Metoprolol Tar 25 Mg Tab) 25 mg PO BID 6AM 6PM [facility] Last Admin: 01/26/22 18:16 Dose: 25 mg Documented by: Nicotine (Nicotine 7 Mg/Pat) 7 mg TD DAILY [facility] Last Admin: 01/26/22 13:45 Dose: 7 mg Documented by: Nifedipine (Nifedipine Xl 30 Mg Tablet) 30 mg PO BID [facility] Last Admin: 01/26/22 09:01 Dose: 30 mg Documented by: Nystatin (Nystatin 500,000 Unit/5 Ml Udc) 500,000 unit PO TID [facility] Last Admin: 01/26/22 13:28 Dose: 500,000 unit Documented by: Ondansetron HCl (Ondansetron 4 Mg/2 Ml Vial) 4 mg IV Q6HP PRN PRN Reason: NAUSEA / VOMITING Ramipril (Ramipril 5 Mg Cap) 10 mg PO BEDTIME [facility] Last Admin: 01/25/22 20:41 Dose: 10 mg Documented by: Sodium Chloride (Flush Normal Saline 10 Ml) 10 ml IV BID [facility] Last Admin: 01/26/22 09:00 Dose: 10 ml Documented by: Thiamine HCl (Thiamine Hcl 100 Mg Tablet) 100 mg PO DAILY [facility] Last Admin: 01/26/22 09:02 Dose: 100 mg Documented by: Tizanidine HCl (Tizanidine 4 Mg Tablet) 4 mg PO BID [facility] Last Admin: 01/26/22 09:02 Dose: 4 mg Documented by: Microbiology Results 01/08/22 17:50 Blood - Blood Aerobic Blood Culture - Final Enterococcus Faecalis 01/08/22 17:50 Blood - Blood Blood Culture Gram Stain - Final 01/08/22 17:50 Blood - Blood Anaerobic Blood Culture - Final Enterococcus Faecalis 01/08/22 17:50 Blood - Blood Gram Stain - Final 01/08/22 18:00 Blood - Blood Aerobic Blood Culture - Final Enterococcus Faecalis 01/08/22 18:00 Blood - Blood Blood Culture Gram Stain - Final 01/08/22 18:00 Blood - Blood Anaerobic Blood Culture - Final Enterococcus Faecalis 01/08/22 18:00 Blood - Blood Gram Stain - Final Assessment/ Plan: Nephrology No dyspnea No chest pain Appetite variable Waxing and waning mental status No acute events overnight Vitals, medications, blood work and imaging reviewed in the chart. NAD. NCAT. MMM. Neck supple. Normal respiratory effort. RRR. Abd ND. No C/C/E. No rash. Awake. Normal speech. ESRD -HD tomorrow -Plan for tunneled CVC soon HTN with CKD/ CHF -Continue Ramipril -Continue Nifedipine ER 30mg BID Diastolic CHF, chronic -Low sodium diet -Continue Coreg DM II with CKD -RISS Moderate malnutrition -Continue Nepro Anemia in CKD -Retacrit TIW CKD MBD -Continue Phoslo Toxic metabolic encephalopathy due to multiple brain infarcts Mitral vegetation/ Endocarditis/ Bacteremia -Continue abx for Enterococcus faecalis Case reviewed with Dr. Leon EXAM DESCRIPTION: MRI - Brain Wo Cont - 01/14/2022 12:01 pm CLINICAL HISTORY: r/o stroke, left sided weakness COMPARISON: Head Brain Wo Cont dated 01/09/2022 TECHNIQUE: Sagittal T1-weighted images were obtained along with PD/heavily T2- weighted and T2-FLAIR images. Axial DWI and ADC mapping sequences were also obtained along with coronal heavily T2-weighted images were obtained. FINDINGS: Multiple bilateral infarcts identified, the largest in the body of the caudate on the right measuring 17 millimeters. There are multiple in the basal ganglia and alfredo radiata as well as some small cortical infarcts in the frontal lobes. Small infarct in the right lobe of the cerebellum. Advanced chronic small vessel ischemic changes. Cerebral atrophy. No mass effect or midline shift. Mastoid air cells and paranasal sinuses are clear. IMPRESSION: Bilateral small cortical, deep white matter, basal ganglia, and cerebellar infarcts involving multiple vascular distributions. This could be se condary to cardioembolic source.
--- NOTE | 2022-01-26 19:53 | PN ---
Date of Progress Note: 01/26/2022 Subjective: Today and yesterday, the primary doctor reconsulting again for the possibility of puttin g a new hemodialysis catheter on this patient. Condition of the patient has not changed too much. L ast time, the catheter was not placed since the Anesthesia believed at that moment it was too dangero us to give her some anesthetic and she could not cooperate. She was confused. They believe she can be a little bit better and that is why they asked us for options. Physical exam, the patient has not changed much, catheter still intact on the femoral region. Blood work was reviewed. The plan, I se nt the Anesthesia team to go and take a look at her from the Anesthesia standpoint for options we hav e for sedation. The option of doing that when she is awake on the OR I do not believe it is safe ashley ugh because she cannot stay still and that may cause complications with damage to arteries, damage to lungs, so they are trying to figure out their options. From the family standpoint, they are also tr gracie to figure out what is the best for her. We once again informed that to the primary doctor. The y will let us know by tomorrow morning the final decision. RHYS/CHANO Voice ID: [id number] Report ID: [id number]
[2022-01-26] MEDS: ramipriL 5 MG CAP PO SCH (21:25)
[2022-01-26] MEDS: ATORVASTATIN 40 MG TAB PO SCH (22:43)
[2022-01-27 04:24] LABS: AST/SGOT 45 U/L (15-37); Albumin 2.2 g/dL (3.4-5.0); Alkaline Phosphatase 54 U/L (45-117); BUN Blood Urea Nitrogen 22 mg/dL (7-18); Bicarbonate 26 mmol/L (21-32); Bilirubin Total 0.3 mg/dL (0.2-1.0); Glucose Level 106 mg/dL (74-106); Magnesium 2.4 mg/dL (1.8-2.4); Potassium 4.4 mmol/L (3.5-5.1); Protein, Total 6.4 g/dL (6.4-8.2); Sodium Level 140 mmol/L (136-145)
[2022-01-27 04:26] LABS: ALT/SGPT < 10 U/L (12-78)
[2022-01-27] MEDS: METOPROLOL TAR 25 MG TAB PO SCH ×2 (06:00→17:13)
[2022-01-27] MEDS: carvediloL 25 MG TAB PO SCH ×2 (06:00→17:13)
--- NOTE | 2022-01-27 06:43 | P.PN ---
Date of Service: 01/27/22 Subjective: no acute changes patient lethargic for me this morning, mumbles, squeezes hand daughter states patient was more awake earlier when she saw patient ROS: difficult to obtain Physical exam GEN: NAD, minimally responsive, squeezes R hand when asked, mumbles CV: Regular rate and rhythm, no edema Pulm: Non-labored respirations on 2L NC ABD: Soft, nontender, nondistended Neuro: L sided weakness, awake, mumbles, squeezes right hand Problem List multiple acute CVAs Endocarditis, Enterococcus Acute hypoxemic respiratory failure secondary to COVID-19 pneumonia Acute metabolic encephalopathy secondary to bacteremia NSTEMI CAD CHF ESRD on HD DM 2 Enterococcus bacteremia with large vegetaion - cause of acute CVAs poor prognosis, more CVAs last week neurology consulted, on folic acid, keppra. Patient has remained stable (Keppra dose reduced 1 week ago due to patient's lethargy) family did not want patient transferred to tertiary care center, no valve surgery, no plans for PEG. Patient previously stated "hell no", when asked about PEG tube discussed patient is extremely high risk to continue to form thrombi and lead to more CVAs daughter wants to continue with treatment, no plan for hospice at this time continue with plan for HD cath placement later this week, daughter ok with PICC - which potentially ruins chances of AV fistula. Family understanding and agree with PICC placement s/p dialysis cath removal on 01/13, and now s/p temporary femoral catheter placement 03/01 blood cx: Enterococcus, repeat cultures without growth since dialysis line removed ID consulted, continue antibiotics - 6 weeks total patient continues with waxing/waning mental status dialysis and continued antibiotics unlikely to improve her current situation secondary to multiple CVAs. Patient does not remember she had strokes / remember conversation from last week Code: Full Dispo: prolonged hospitalization family would want home, however patient may be too high need. no LTAC coverage from insurance family accepting the higher need for care and looking into [facility] placement Time Spent Managing Pts Care (In Minutes): 35
[2022-01-27] MEDS: INSULIN -REGULAR HUMAN 50 UNIT/0.5 ML ML SQ SCH ×4 (07:30→21:00)
[2022-01-27] MEDS: AMPICILLIN SODIUM 2 GM in NA CHLORIDE 0.9% 100 ML IVPB SCH ×2 (08:26→21:25)
[2022-01-27] MEDS: NA CHLORIDE 0.9% IV SCH ×2 (08:29→21:25)
[2022-01-27] MEDS: LEVETIRACETAM IV SCH ×2 (08:29→21:25)
[2022-01-27] MEDS: CEFTRIAXONE 2,000 MG in NA CHLORIDE 0.9% 100 ML IV SCH ×2 (08:30→21:31)
[2022-01-27] MEDS: NIFEDIPINE XL 30 MG TABLET PO SCH ×2 (08:31→21:26)
[2022-01-27] MEDS: LACTOBACILLUS/ACIDOPHILUS TAB PO SCH ×3 (08:32→21:26)
[2022-01-27] MEDS: NYSTATIN 500,000 UNIT/5 ML UDC PO SCH ×3 (08:33→21:27)
[2022-01-27] MEDS: TIZANIDINE 4 MG TABLET PO SCH ×2 (08:33→21:27)
[2022-01-27] MEDS: CALCIUM ACETATE 667 MG TAB PO SCH ×3 (08:33→16:29)
[2022-01-27] MEDS: GABAPENTIN 300 MG CAP PO SCH ×2 (08:33→21:26)
[2022-01-27] MEDS: HYDRALAZINE HCL 25 MG TABLET PO SCH ×2 (08:39→21:27)
[2022-01-27] MEDS: THIAMINE HCL 100 MG TABLET PO SCH (08:39)
[2022-01-27] MEDS: VITAMIN D 5,000 UNIT CAP PO SCH (08:39)
[2022-01-27] MEDS: NEPRO SHAKE 237 ML CAN PO SCH ×3 (08:42→21:00)
[2022-01-27] MEDS: DIPHENHYDRAMINE 50 MG/ML VIAL IV SCH (08:42)
[2022-01-27] MEDS: NICOTINE 7 MG/PAT TD SCH (09:23)
[2022-01-27] MEDS: DULERA 200/5 (MOMETASONE/FORMOTEROL) INHALER IH SCH ×2 (09:25→21:00)
[2022-01-27] MEDS ORDERED: FLUCONAZOLE 100 MG TAB PO ONE (12:29)
--- NOTE | 2022-01-27 12:37 | P.PN ---
Subjective Date of Service: 01/27/22 Chief Complaint: dizziness, weakness Patient seen and examined at bedside, patient with vaginal candidiasis, single dose of oral Diflucan ordered along with nystatin powder to be applied to groin area. Nurse also informed me of a small stage II sacral pressure injury as well as stage II posterior left thigh pressure injury. Wound care orders placed. Review of Systems 10-point ROS is otherwise unremarkable Physical Examination - Vital Signs Temperature: 96.8 F Blood Pressure: 174/81 Pulse: 77 Respirations: 18 Pulse Ox (%): 94 - Studies Laboratory Last Values WBC 8.50 K/uL (4.3-10.9) 01/08/22 14:49 RBC 2.86 M/uL (3.86-4.86) L 01/08/22 14:49 Hgb 9.2 g/dL (12.0-15.0) L 01/08/22 14:49 Hct 27.8 % (36.0-45.0) L 01/08/22 14:49 MCV 97.4 fL (80-100) 01/08/22 14:49 MCH 32.3 pg (27.0-35.0) 01/08/22 14:49 MCHC 33.1 g/dL (32.0-36.0) 01/08/22 14:49 RDW 14.8 % (12.1-15.2) 01/08/22 14:49 Plt Count 125 K/uL (152-406) L 01/08/22 14:49 MPV 8.5 fL (7.6-11.3) 01/08/22 14:49 Neutrophils % 81.4 % (41.7-73.7) H 01/08/22 14:49 Lymphocytes % 9.9 % (15.3-44.8) L 01/08/22 14:49 Monocytes % 8.4 % (3.3-12.3) 01/08/22 14:49 Eosinophils % 0.0 % (0-4.4) 01/08/22 14:49 Basophils % 0.3 % (0-1.3) 01/08/22 14:49 Absolute Neutrophils 6.9 K/uL (1.8-8.0) 01/08/22 14:49 Absolute Lymphocytes 0.8 K/uL (0.7-4.9) 01/08/22 14:49 Absolute Monocytes 0.7 K/uL (0.1-1.3) 01/08/22 14:49 Absolute Eosinophils 0.0 K/uL (0-0.5) 01/08/22 14:49 Absolute Basophils 0.0 K/uL (0-0.5) 01/08/22 14:49 PT 13.2 SECONDS (9.5-12.5) H 01/08/22 14:49 INR 1.15 01/08/22 14:49 Sodium 139 mmol/L (136-145) 01/08/22 14:49 Potassium 3.1 mmol/L (3.5-5.1) L 01/08/22 14:49 Chloride 101 mmol/L (98-107) 01/08/22 14:49 Carbon Dioxide 30 mmol/L (21-32) 01/08/22 14:49 BUN 29 mg/dL (7-18) H 01/08/22 14:49 Creatinine 6.12 mg/dL (0.55-1.3) H* 01/08/22 14:49 Estimated GFR 8 mL/min (=/>90) L 01/08/22 14:49 Glucose 190 mg/dL (74-106) H 01/08/22 14:49 Lactic Acid 1.3 mmol/L (0.4-2.0) 01/08/22 18:00 Calcium 9.7 mg/dL (8.5-10.1) 01/08/22 14:49 Magnesium 2.1 mg/dL (1.8-2.4) D 01/08/22 14:49 Total Bilirubin 1.0 mg/dL (0.2-1.0) 01/08/22 14:49 Direct Bilirubin 0.6 mg/dL (0-0.2) H 01/08/22 14:49 AST 47 U/L (15-37) H 01/08/22 14:49 ALT 13 U/L (12-78) 01/08/22 14:49 Alkaline Phosphatase 69 U/L (45-117) 01/08/22 14:49 Troponin I High Sens 5974.70 pg/mL (<58.9) H* 01/08/22 14:49 NT-Pro-B Natriuret Pep 726474 pg/mL (<125) H 01/08/22 14:49 Serum Total Protein 7.2 g/dL (6.4-8.2) 01/08/22 14:49 Albumin 2.8 g/dL (3.4-5.0) L 01/08/22 14:49 Globulin 4.4 g/dL (2.3-3.5) H 01/08/22 14:49 Albumin/Globulin Ratio 0.6 (1.1-1.8) L 01/08/22 14:49 Lipase 64 U/L (73-393) L 01/08/22 14:49 SARS-CoV-2 Rap RNA(RT-PCR) Positive (NEGATIVE) A 01/08/22 14:49 Assessment And Plan - Plan Physical exam: General: In no apparent distress HEENT: Atraumatic Neck: Supple Respiratory: Other (Bibasilar crackles/rales) Cardiovascular: No edema, Regular rate/rhythm, systolic murmur Capillary refill: <2 Seconds Gastrointestinal: Normal bowel sounds, No tenderness Musculoskeletal: No clubbing, No swelling Integumentary: No rashes, No breakdown, No significant lesion Conclusions/Impression: Antibiotics Ampicillin: 01/13current Rocephin: 01/09current Vancomycin: Levaquin: Assessment/plan Gram-positive bacteremia Blood cultures obtained on 01/08 grew Enterococcus faecalis in 4/4 bottles. Additional repeat cultures obtained on 01/11 and 01/12 also positive for Enterococcus. Catheter tip culture obtained on 01/13+ for Enterococcus faecalis. Most recent blood cultures obtained on 01/14, 01/15, & 01/21 show no growth at 24 hours. Source of infection-infected right dialysis catheter. Dialysis catheter was removed on 01/13. Repeat echocardiogram obtained on 01/14 showed large mitral valve vegetation new since 01/11 echo. Brain MRI on 01/14 showed multiple infarcts, likely secondary to septic emboli. Repeat MRI on 01/20 showed new CVA in left cerebral hemisphere and midbrain. Patient will need IV antibiotics for at least 6 weeks~tentative completion date of 02/25. Right femoral dialysis catheter placed on 01/19. Patient had dialysis holiday from . Continue double coverage with IV Rocephin and ampicillin. Of note patient has left midline. Unknown when this was placed as there is no documentation--working with nursing staff to determine when this was placed. Area usually covered by BP cuff. Recommend removing this line. Recommend transferring patient to different hospital for mitral valve replacement due to large size vegetation, and recurrent embolic events noted on MRI scans. COVID-19 PNA On low amount of oxygen via NC. Is out of window for remdesivir therapy. Continue to monitor closely. Asymptomatic. Vaginal candidiasis Single dose of oral Diflucan ordered Nystatin powder ordered to be applied to groin area Stage II sacral and left posterior thigh wound Wound care: Apply barrier cream and cover/protect with Mepilex. Continue to offload with wedge pillows, avoid direct pressure and reposition patient in bed every 2 hours during waking hours. Oral thrush Continue nystatin oral suspension TID Protein caloric malnutrition: Moderate Albumin significantly downtrending, per nursing staff is very difficult to give patient's oral meds/feeding due to somnolent state/altered mental status. Recommend PEG tube placement. AMS DM ESRD on HD CHF Hypertension -Medical management per primary team Care discussed with Dr. Jason Thank for consultation.
[2022-01-27] MEDS: NYSTATIN PWDR 100000 UNIT/GM TOP PRN (13:34)
[2022-01-27] MEDS: EPOETIN ALFA 10,000 UNIT/ML VIAL SQ SCH (16:50)
--- NOTE | 2022-01-27 20:30 | P.PN ---
Date of Service: 01/27/22 Vital Signs Temp Pulse Resp BP Pulse Ox 98.8 F 79 18 157/82 H 97 01/27/22 16:00 01/27/22 16:00 01/27/22 16:00 01/27/22 16:00 01/27/22 16:00 Medications Acetaminophen (Acetaminophen 500 Mg Tab) 500 mg PO Q4HP PRN PRN Reason: Pain scale 2-4 (Mild) Last Admin: 01/10/22 21:52 Dose: 500 mg Documented by: Albuterol Sulfate (Albuterol 2.5 Mg/3 Ml Neb Erma) 2.5 mg NEB Q6HP PRN PRN Reason: SHORTNESS OF BREATH Atorvastatin Calcium (Atorvastatin 40 Mg Tab) 40 mg PO BEDTIME [facility] Last Admin: 01/26/22 22:43 Dose: 40 mg Documented by: Benzonatate (Benzonatate 100 Mg Cap) 100 mg PO TID PRN PRN Reason: COUGH Last Admin: 01/23/22 21:13 Dose: 100 mg Documented by: Calcium Acetate (Calcium Acetate 667 Mg Tab) 1,334 mg PO TIDWM [facility] Last Admin: 01/27/22 16:29 Dose: 1,334 mg Documented by: Carvedilol (Carvedilol 25 Mg Tab) 25 mg PO BID 6AM 6PM [facility] Last Admin: 01/27/22 17:13 Dose: Not Given Documented by: Cholecalciferol (Vitamin D 5,000 Unit Cap) 5,000 unit PO DAILY [facility] Last Admin: 01/27/22 08:39 Dose: 5,000 unit Documented by: Enteral Nutritional Formula (Nepro Shake 237 Ml Can) 237 ml PO TID [facility] Last Admin: 01/27/22 14:00 Dose: Not Given Documented by: Epoetin Tommy (Epoetin Tommy 10,000 Unit/Ml Vial) 10,000 unit SQ M,W,F [facility] Last Admin: 01/27/22 16:50 Dose: 10,000 unit Documented by: Gabapentin (Gabapentin 300 Mg Cap) 300 mg PO BID [facility] Last Admin: 01/27/22 08:33 Dose: 300 mg Documented by: Heparin Sodium (Porcine) (Heparin 1,000 Unit/Ml Vial) 6,000 unit IV EVERY HD PRN PRN Reason: DIALYSIS Last Admin: 01/25/22 14:50 Dose: 6,000 unit Documented by: Hydralazine HCl (Hydralazine Hcl 20 Mg/Ml Vial) 10 mg IV Q6HP PRN PRN Reason: Titrate to SBP (MUST DEFINE) Last Admin: 01/25/22 11:26 Dose: 10 mg Documented by: Hydralazine HCl (Hydralazine Hcl 25 Mg Tablet) 50 mg PO BID [facility] Last Admin: 01/27/22 08:39 Dose: 50 mg Documented by: Ampicillin Sodium 2 gm/ Sodium (Chloride) 100 mls @ 200 mls/hr IVPB Q12HR [facility] Last Admin: 01/27/22 08:26 Dose: 100 mls Documented by: Levetiracetam 125 mg/ Sodium (Chloride) 101.25 mls @ 410 mls/hr IV BID [facility] Last Admin: 01/27/22 08:29 Dose: 101.25 mls Documented by: Ceftriaxone Sodium 2,000 mg/ (Sodium Chloride) 100 mls @ 200 mls/hr IV Q12HR [facility]; Protocol Last Admin: 01/27/22 08:30 Dose: 100 mls Documented by: Insulin Human Regular (Insulin -Regular Human 50 Unit/0.5 Ml Ml) 0 unit SQ ACHS [facility]; Protocol Last Admin: 01/27/22 16:29 Dose: Not Given Documented by: Ipratropium [place] (Ipratropium Brom 0.5mg/2.5ml) 0.5 mg NEB Q6HP PRN PRN Reason: SHORTNESS OF BREATH Lactobacillus Acidoph/Bulgaricus (Lactobacillus/Acidophilus Tab) 1 tab PO TID [facility] Last Admin: 01/27/22 13:34 Dose: 1 tab Documented by: Metoprolol Tartrate (Metoprolol Tar 25 Mg Tab) 25 mg PO BID 6AM 6PM [facility] Last Admin: 01/27/22 17:13 Dose: Not Given Documented by: Nicotine (Nicotine 7 Mg/Pat) 7 mg TD DAILY [facility] Last Admin: 01/27/22 09:23 Dose: 7 mg Documented by: Nifedipine (Nifedipine Xl 30 Mg Tablet) 30 mg PO BID [facility] Last Admin: 01/27/22 08:31 Dose: 30 mg Documented by: Nystatin (Nystatin 500,000 Unit/5 Ml Udc) 500,000 unit PO TID [facility] Last Admin: 01/27/22 13:34 Dose: 500,000 unit Documented by: Nystatin (Nystatin Pwdr [id number] Unit/Gm) 1 appl TOP DAILY PRN PRN Reason: RASH Last Admin: 01/27/22 13:34 Dose: 1 appl Documented by: Ondansetron HCl (Ondansetron 4 Mg/2 Ml Vial) 4 mg IV Q6HP PRN PRN Reason: NAUSEA / VOMITING Ramipril (Ramipril 5 Mg Cap) 10 mg PO BEDTIME [facility] Last Admin: 01/26/22 21:25 Dose: 10 mg Documented by: Sodium Chloride (Flush Normal Saline 10 Ml) 10 ml IV BID [facility] Last Admin: 01/27/22 08:43 Dose: 10 ml Documented by: Thiamine HCl (Thiamine Hcl 100 Mg Tablet) 100 mg PO DAILY [facility] Last Admin: 01/27/22 08:39 Dose: 100 mg Documented by: Tizanidine HCl (Tizanidine 4 Mg Tablet) 4 mg PO BID [facility] Last Admin: 01/27/22 08:33 Dose: 4 mg Documented by: Microbiology Results 01/08/22 17:50 Blood - Blood Aerobic Blood Culture - Final Enterococcus Faecalis 01/08/22 17:50 Blood - Blood Blood Culture Gram Stain - Final 01/08/22 17:50 Blood - Blood Anaerobic Blood Culture - Final Enterococcus Faecalis 01/08/22 17:50 Blood - Blood Gram Stain - Final 01/08/22 18:00 Blood - Blood Aerobic Blood Culture - Final Enterococcus Faecalis 01/08/22 18:00 Blood - Blood Blood Culture Gram Stain - Final 01/08/22 18:00 Blood - Blood Anaerobic Blood Culture - Final Enterococcus Faecalis 01/08/22 18:00 Blood - Blood Gram Stain - Final Assessment/ Plan: Nephrology No dyspnea No chest pain Appetite variable Waxing and waning mental status No acute events overnight Vitals, medications, blood work and imaging reviewed in the chart. NAD. NCAT. MMM. Neck supple. Normal respiratory effort. RRR. Abd ND. No C/C/E. No rash. Somnolent. No speech. ESRD -HD today -Plan for tunneled CVC soon HTN with CKD/ CHF -Continue Ramipril -Continue Nifedipine ER 30mg BID Diastolic CHF, chronic -Low sodium diet -Continue Coreg DM II with CKD -RISS Moderate malnutrition -Continue Nepro Anemia in CKD -Retacrit TIW CKD MBD -Continue Phoslo Toxic metabolic encephalopathy due to multiple brain infarcts Mitral vegetation/ Endocarditis/ Bacteremia -Continue abx for Enterococcus faecalis EXAM DESCRIPTION: MRI - Brain Wo Cont - 01/14/2022 12:01 pm CLINICAL HISTORY: r/o stroke, left sided weakness COMPARISON: Head Brain Wo Cont dated 01/09/2022 TECHNIQUE: Sagittal T1-weighted images were obtained along with PD/heavily T2- weighted and T2-FLAIR images. Axial DWI and ADC mapping sequences were also obtained along with coronal heavily T2-weighted images were obtained. FINDINGS: Multiple bilateral infarcts identified, the largest in the body of the caudate on the right measuring 17 millimeters. There are multiple in the basal ganglia and alfredo radiata as well as some small cortical infarcts in the frontal lobes. Small infarct in the right lobe of the cerebellum. Advanced chronic small vessel ischemic changes. Cerebral atrophy. No mass effect or midline shift. Mastoid air cells and paranasal sinuses are clear. IMPRESSION: Bilateral small cortical, deep white matter, basal ganglia, and cerebellar infarcts involving multiple vascular distributions. This could be secondary to cardioembolic source.
[2022-01-27] MEDS: ramipriL 5 MG CAP PO SCH (21:26)
[2022-01-27] MEDS: ATORVASTATIN 40 MG TAB PO SCH (21:36)
[2022-01-28] MEDS: METOPROLOL TAR 25 MG TAB PO SCH ×2 (06:00→17:35)
[2022-01-28] MEDS: carvediloL 25 MG TAB PO SCH ×2 (06:20→17:35)
[2022-01-28 06:35] LABS: Hematocrit 29.4 % (36.0-45.0); MPV 7.8 fL (7.6-11.3); RBC Red Blood Cell Count 3.07 M/uL (3.86-4.86)
--- NOTE | 2022-01-28 06:36 | P.PN ---
Date of Service: 01/28/22 Subjective: No acute events overnight Patient remained stable, waxing/waning mental status ROS: difficult to obtain Physical exam GEN: NAD, squeezes R hand when asked, mumbles CV: Regular rate and rhythm, no edema Pulm: Non-labored respirations on room air ABD: Soft, nontender, nondistended Neuro: L sided weakness, awake, mumbles Problem List multiple acute CVAs Endocarditis, Enterococcus Acute hypoxemic respiratory failure secondary to COVID-19 pneumonia Acute metabolic encephalopathy secondary to bacteremia NSTEMI CAD CHF ESRD on HD DM 2 Enterococcus bacteremia with large vegetation - cause of acute CVAs poor prognosis, more CVAs last week neurology consulted, on folic acid, keppra. Patient has remained stable (Keppra dose reduced 1 week ago due to patient's lethargy) family did not want patient transferred to tertiary care center, no valve surgery, no plans for PEG. Patient previously stated "hell no", when asked about PEG tube discussed patient is extremely high risk to continue to form thrombi and lead to more CVAs daughter wants to continue with treatment, no plan for hospice at this time continue with plan for HD cath placement Tuesday, daughter ok with PICC - which potentially ruins chances of AV fistula. Family understanding and agree with PICC placement - nephrology ok with PICC s/p dialysis cath removal on 01/13, and now s/p temporary femoral catheter placement 03/01 blood cx: Enterococcus, repeat cultures without growth since dialysis line removed ID consulted, continue antibiotics - 6 weeks total patient continues with waxing/waning mental status dialysis and continued antibiotics unlikely to improve her current situation secondary to multiple CVAs. Patient does not remember she had strokes / remember conversation from last week Code: Full Dispo: prolonged hospitalization family would want home, however patient may be too high need at this time. no LTAC coverage from insurance family accepting the higher need for care and looking into halfway plac ement Time Spent Managing Pts Care (In Minutes): 35
[2022-01-28 06:47] LABS: Albumin 2.1 g/dL (3.4-5.0); Magnesium 2.3 mg/dL (1.8-2.4); Phosphorus 4.7 mg/dL (2.5-4.9); Potassium 4.4 mmol/L (3.5-5.1)
[2022-01-28] MEDS: INSULIN -REGULAR HUMAN 50 UNIT/0.5 ML ML SQ SCH ×4 (07:30→21:00)
[2022-01-28] MEDS: NICOTINE 7 MG/PAT TD SCH (08:49)
[2022-01-28] MEDS: AMPICILLIN SODIUM 2 GM in NA CHLORIDE 0.9% 100 ML IVPB SCH ×2 (08:50→21:24)
[2022-01-28] MEDS: NIFEDIPINE XL 30 MG TABLET PO SCH ×2 (08:51→21:21)
[2022-01-28] MEDS: LACTOBACILLUS/ACIDOPHILUS TAB PO SCH ×3 (08:54→21:23)
[2022-01-28] MEDS: VITAMIN D 5,000 UNIT CAP PO SCH (08:54)
[2022-01-28] MEDS: GABAPENTIN 300 MG CAP PO SCH ×2 (08:54→21:23)
[2022-01-28] MEDS: THIAMINE HCL 100 MG TABLET PO SCH (08:54)
[2022-01-28] MEDS: HYDRALAZINE HCL 25 MG TABLET PO SCH ×2 (08:54→21:23)
[2022-01-28] MEDS: CALCIUM ACETATE 667 MG TAB PO SCH ×3 (08:54→17:30)
[2022-01-28] MEDS: NYSTATIN PWDR 100000 UNIT/GM TOP PRN (08:55)
[2022-01-28] MEDS: NYSTATIN 500,000 UNIT/5 ML UDC PO SCH ×3 (08:55→21:21)
[2022-01-28] MEDS: DULERA 200/5 (MOMETASONE/FORMOTEROL) INHALER IH SCH ×2 (08:55→21:00)
[2022-01-28] MEDS: TIZANIDINE 4 MG TABLET PO SCH ×2 (09:00→21:23)
[2022-01-28] MEDS: NEPRO SHAKE 237 ML CAN PO SCH ×3 (09:00→21:00)
[2022-01-28] MEDS: CEFTRIAXONE 2,000 MG in NA CHLORIDE 0.9% 100 ML IV SCH ×2 (09:50→21:20)
[2022-01-28] MEDS: ACETAMINOPHEN 500 MG TAB PO PRN (09:51)
--- NOTE | 2022-01-28 10:46 | P.PN ---
Date of Service: 01/28/22 Vital Signs Temp Pulse Resp BP Pulse Ox 98.1 F 65 16 140/79 98 01/28/22 04:00 01/28/22 08:51 01/28/22 04:00 01/28/22 08:51 01/28/22 04:00 Medications Acetaminophen (Acetaminophen 500 Mg Tab) 500 mg PO Q4HP PRN PRN Reason: Pain scale 2-4 (Mild) Last Admin: 01/28/22 09:51 Dose: 500 mg Documented by: Albuterol Sulfate (Albuterol 2.5 Mg/3 Ml Neb Erma) 2.5 mg NEB Q6HP PRN PRN Reason: SHORTNESS OF BREATH Atorvastatin Calcium (Atorvastatin 40 Mg Tab) 40 mg PO BEDTIME [facility] Last Admin: 01/27/22 21:36 Dose: 40 mg Documented by: Benzonatate (Benzonatate 100 Mg Cap) 100 mg PO TID PRN PRN Reason: COUGH Last Admin: 01/23/22 21:13 Dose: 100 mg Documented by: Calcium Acetate (Calcium Acetate 667 Mg Tab) 1,334 mg PO TIDWM [facility] Last Admin: 01/28/22 08:54 Dose: 1,334 mg Documented by: Carvedilol (Carvedilol 25 Mg Tab) 25 mg PO BID 6AM 6PM [facility] Last Admin: 01/28/22 06:20 Dose: 25 mg Documented by: Cholecalciferol (Vitamin D 5,000 Unit Cap) 5,000 unit PO DAILY [facility] Last Admin: 01/28/22 08:54 Dose: 5,000 unit Documented by: Enteral Nutritional Formula (Nepro Shake 237 Ml Can) 237 ml PO TID [facility] Last Admin: 01/28/22 09:00 Dose: 237 ml Documented by: Epoetin Tommy (Epoetin Tommy 10,000 Unit/Ml Vial) 10,000 unit SQ M,W,F [facility] Last Admin: 01/27/22 16:50 Dose: 10,000 unit Documented by: Gabapentin (Gabapentin 300 Mg Cap) 300 mg PO BID [facility] Last Admin: 01/28/22 08:54 Dose: 300 mg Documented by: Heparin Sodium (Porcine) (Heparin 1,000 Unit/Ml Vial) 6,000 unit IV EVERY HD PRN PRN Reason: DIALYSIS Last Admin: 01/25/22 14:50 Dose: 6,000 unit Documented by: Hydralazine HCl (Hydralazine Hcl 20 Mg/Ml Vial) 10 mg IV Q6HP PRN PRN Reason: Titrate to SBP (MUST DEFINE) Last Admin: 01/25/22 11:26 Dose: 10 mg Documented by: Hydralazine HCl (Hydralazine Hcl 25 Mg Tablet) 50 mg PO BID [facility] Last Admin: 01/28/22 08:54 Dose: 50 mg Documented by: Ampicillin Sodium 2 gm/ Sodium (Chloride) 100 mls @ 200 mls/hr IVPB Q12HR [facility] Last Admin: 01/28/22 08:50 Dose: 100 mls Documented by: Levetiracetam 125 mg/ Sodium (Chloride) 101.25 mls @ 410 mls/hr IV BID [facility] Last Admin: 01/27/22 21:25 Dose: 101.25 mls Documented by: Ceftriaxone Sodium 2,000 mg/ (Sodium Chloride) 100 mls @ 200 mls/hr IV Q12HR [facility]; Protocol Last Admin: 01/28/22 09:50 Dose: 100 mls Documented by: Insulin Human Regular (Insulin -Regular Human 50 Unit/0.5 Ml Ml) 0 unit SQ ACHS [facility]; Protocol Last Admin: 01/28/22 07:30 Dose: Not Given Documented by: Ipratropium [place] (Ipratropium Brom 0.5mg/2.5ml) 0.5 mg NEB Q6HP PRN PRN Reason: SHORTNESS OF BREATH Lactobacillus Acidoph/Bulgaricus (Lactobacillus/Acidophilus Tab) 1 tab PO TID [facility] Last Admin: 01/28/22 08:54 Dose: 1 tab Documented by: Metoprolol Tartrate (Metoprolol Tar 25 Mg Tab) 25 mg PO BID 6AM 6PM [facility] Last Admin: 01/28/22 06:00 Dose: Not Given Documented by: Nicotine (Nicotine 7 Mg/Pat) 7 mg TD DAILY [facility] Last Admin: 01/28/22 08:49 Dose: 7 mg Documented by: Nifedipine (Nifedipine Xl 30 Mg Tablet) 30 mg PO BID [facility] Last Admin: 01/28/22 08:51 Dose: 30 mg Documented by: Nystatin (Nystatin 500,000 Unit/5 Ml Udc) 500,000 unit PO TID [facility] Last Admin: 01/28/22 08:55 Dose: 500,000 unit Documented by: Nystatin (Nystatin Pwdr [id number] Unit/Gm) 1 appl TOP DAILY PRN PRN Reason: RASH Last Admin: 01/28/22 08:55 Dose: 1 appl Documented by: Ondansetron HCl (Ondansetron 4 Mg/2 Ml Vial) 4 mg IV Q6HP PRN PRN Reason: NAUSEA / VOMITING Ramipril (Ramipril 5 Mg Cap) 10 mg PO BEDTIME [facility] Last Admin: 01/27/22 21:26 Dose: 10 mg Documented by: Sodium Chloride (Flush Normal Saline 10 Ml) 10 ml IV BID [facility] Last Admin: 01/28/22 08:57 Dose: 10 ml Documented by: Thiamine HCl (Thiamine Hcl 100 Mg Tablet) 100 mg PO DAILY [facility] Last Admin: 01/28/22 08:54 Dose: 100 mg Documented by: Tizanidine HCl (Tizanidine 4 Mg Tablet) 4 mg PO BID [facility] Last Admin: 01/28/22 09:00 Dose: 4 mg Documented by: Microbiology Results 01/08/22 17:50 Blood - Blood Aerobic Blood Culture - Final Enterococcus Faecalis 01/08/22 17:50 Blood - Blood Blood Culture Gram Stain - Final 01/08/22 17:50 Blood - Blood Anaerobic Blood Culture - Final Enterococcus Faecalis 01/08/22 17:50 Blood - Blood Gram Stain - Final 01/08/22 18:00 Blood - Blood Aerobic Blood Culture - Final Enterococcus Faecalis 01/08/22 18:00 Blood - Blood Blood Culture Gram Stain - Final 01/08/22 18:00 Blood - Blood Anaerobic Blood Culture - Final Enterococcus Faecalis 01/08/22 18:00 Blood - Blood Gram Stain - Final Assessment/ Plan: Nephrology No dyspnea No chest pain Appetite variable Waxing and waning mental status No acute events overnight Vitals, medications, blood work and imaging reviewed in the chart. NAD. NCAT. MMM. Neck supple. Normal respiratory effort. RRR. Abd ND. No C/C/E. No rash. Awake. Soft speech. ESRD -HD tomorrow -Plan for tunneled CVC soon HTN with CKD/ CHF -Continue Ramipril -Continue Nifedipine ER 30mg BID Diastolic CHF, chronic -Low sodium diet -Continue Coreg DM II with CKD -RISS Moderate malnutrition -Continue Nepro Anemia in CKD -Retacrit TIW CKD MBD -Continue Phoslo Toxic metabolic encephalopathy due to multiple brain infarcts Mitral vegetation/ Endocarditis/ Bacteremia -Continue abx for Enterococcus faecalis -Plan for PICC. Daughter states she will not pursue an AVF in the future due to her history of unsuccessful fistulas. Case reviewed with Dr. Leon EXAM DESCRIPTION: MRI - Brain Wo Cont - 01/14/2022 12:01 pm CLINICAL HISTORY: r/o stroke, left sided weakness COMPARISON: Head Brain Wo Cont dated 01/09/2022 TECHNIQUE: Sagittal T1-weighted images were obtained along with PD/heavily T2- weighted and T2-FLAIR images. Axial DWI and ADC mapping sequences were also obtained along with coronal heavily T2-weighted images were obtained. FINDINGS: Multiple bilateral infarcts identified, the largest in the body of the caudate on the right measuring 17 millimeters. There are multiple in the basal ganglia and alfredo radiata as well as some small cortical infarcts in the frontal lobes. Small infarct in the right lobe of the cerebellum. Advanced chronic small vessel ischemic changes. Cerebral atrophy. No mass effect or midline shift. Mastoid air cells and paranasal sinuses are clear. IMPRESSION: Bilateral small cortical, deep white matter, basal ganglia, and cerebellar infarcts involving multiple vascular distributions. This could be secondary to cardioembolic source.
--- NOTE | 2022-01-28 11:04 | P.PN ---
Subjective Date of Service: 01/28/22 Chief Complaint: dizziness, weakness Patient seen and examined at bedside, PICC line pending. Review of Systems 10-point ROS is otherwise unremarkable Physical Examination - Vital Signs Temperature: 98.1 F Blood Pressure: 140/79 Pulse: 65 Respirations: 16 Pulse Ox (%): 98 - Studies Laboratory Last Values WBC 8.50 K/uL (4.3-10.9) 01/08/22 14:49 RBC 2.86 M/uL (3.86-4.86) L 01/08/22 14:49 Hgb 9.2 g/dL (12.0-15.0) L 01/08/22 14:49 Hct 27.8 % (36.0-45.0) L 01/08/22 14:49 MCV 97.4 fL (80-100) 01/08/22 14:49 MCH 32.3 pg (27.0-35.0) 01/08/22 14:49 MCHC 33.1 g/dL (32.0-36.0) 01/08/22 14:49 RDW 14.8 % (12.1-15.2) 01/08/22 14:49 Plt Count 125 K/uL (152-406) L 01/08/22 14:49 MPV 8.5 fL (7.6-11.3) 01/08/22 14:49 Neutrophils % 81.4 % (41.7-73.7) H 01/08/22 14:49 Lymphocytes % 9.9 % (15.3-44.8) L 01/08/22 14:49 Monocytes % 8.4 % (3.3-12.3) 01/08/22 14:49 Eosinophils % 0.0 % (0-4.4) 01/08/22 14:49 Basophils % 0.3 % (0-1.3) 01/08/22 14:49 Absolute Neutrophils 6.9 K/uL (1.8-8.0) 01/08/22 14:49 Absolute Lymphocytes 0.8 K/uL (0.7-4.9) 01/08/22 14:49 Absolute Monocytes 0.7 K/uL (0.1-1.3) 01/08/22 14:49 Absolute Eosinophils 0.0 K/uL (0-0.5) 01/08/22 14:49 Absolute Basophils 0.0 K/uL (0-0.5) 01/08/22 14:49 PT 13.2 SECONDS (9.5-12.5) H 01/08/22 14:49 INR 1.15 01/08/22 14:49 Sodium 139 mmol/L (136-145) 01/08/22 14:49 Potassium 3.1 mmol/L (3.5-5.1) L 01/08/22 14:49 Chloride 101 mmol/L (98-107) 01/08/22 14:49 Carbon Dioxide 30 mmol/L (21-32) 01/08/22 14:49 BUN 29 mg/dL (7-18) H 01/08/22 14:49 Creatinine 6.12 mg/dL (0.55-1.3) H* 01/08/22 14:49 Estimated GFR 8 mL/min (=/>90) L 01/08/22 14:49 Glucose 190 mg/dL (74-106) H 01/08/22 14:49 Lactic Acid 1.3 mmol/L (0.4-2.0) 01/08/22 18:00 Calcium 9.7 mg/dL (8.5-10.1) 01/08/22 14:49 Magnesium 2.1 mg/dL (1.8-2.4) D 01/08/22 14:49 Total Bilirubin 1.0 mg/dL (0.2-1.0) 01/08/22 14:49 Direct Bilirubin 0.6 mg/dL (0-0.2) H 01/08/22 14:49 AST 47 U/L (15-37) H 01/08/22 14:49 ALT 13 U/L (12-78) 01/08/22 14:49 Alkaline Phosphatase 69 U/L (45-117) 01/08/22 14:49 Troponin I High Sens 5974.70 pg/mL (<58.9) H* 01/08/22 14:49 NT-Pro-B Natriuret Pep 290875 pg/mL (<125) H 01/08/22 14:49 Serum Total Protein 7.2 g/dL (6.4-8.2) 01/08/22 14:49 Albumin 2.8 g/dL (3.4-5.0) L 01/08/22 14:49 Globulin 4.4 g/dL (2.3-3.5) H 01/08/22 14:49 Albumin/Globulin Ratio 0.6 (1.1-1.8) L 01/08/22 14:49 Lipase 64 U/L (73-393) L 01/08/22 14:49 SARS-CoV-2 Rap RNA(RT-PCR) Positive (NEGATIVE) A 01/08/22 14:49 Assessment And Plan - Plan Physical exam: General: In no apparent distress HEENT: Atraumatic Neck: Supple Respiratory: Other (Bibasilar crackles/rales) Cardiovascular: No edema, Regular rate/rhythm, systolic murmur Capillary refill: <2 Seconds Gastrointestinal: Normal bowel sounds, No tenderness Musculoskeletal: No clubbing, No swelling Integumentary: No rashes, No breakdown, No significant lesion Conclusions/Impression: Antibiotics Ampicillin: 01/13current Rocephin: 01/09current Vancomycin: Levaquin: Assessment/plan Gram-positive bacteremia Blood cultures obtained on 01/08 grew Enterococcus faecalis in 4/4 bottles. Add itional repeat cultures obtained on 01/11 and 01/12 also positive for Enterococcus. Catheter tip culture obtained on 01/13+ for Enterococcus faecalis. Most recent blood cultures obtained on 01/14, 01/15, & 01/21 show no growth at 24 hours. Source of infection-infected right dialysis catheter. Dialysis catheter was removed on 01/13. Repeat echocardiogram obtained on 01/14 showed large mitral valve vegetation new since 01/11 echo. Brain MRI on 01/14 showed multiple infarcts, likely secondary to septic emboli. Repeat MRI on 01/20 showed new CVA in left cerebral hemisphere and midbrain. Patient will need IV antibiotics for at least 6 weeks~tentative completion date of 02/25. Right femoral dialysis catheter placed on 01/19. Patient had dialysis holiday from . Continue double coverage with IV Rocephin and ampicillin. Of note patient has left midline. Unknown when this was placed as there is no documentation--working with nursing staff to determine when this was placed. Area usually covered by BP cuff. Recommend removing this line. Recommend transferring patient to different hospital for mitral valve replacement due to large size vegetation, and recurrent embolic events noted on MRI scans. COVID-19 PNA On low amount of oxygen via NC. Is out of window for remdesivir therapy. Continue to monitor closely. Asymptomatic. Vaginal candidiasis Single dose of oral Diflucan ordered Nystatin powder ordered to be applied to groin area Stage II sacral and left posterior thigh wound Wound care: Apply barrier cream and cover/protect with Mepilex. Continue to offload with wedge pillows, avoid direct pressure and reposition patient in bed every 2 hours during waking hours. Oral thrush Continue nystatin oral suspension TID Protein caloric malnutrition: Moderate Albumin significantly downtrending, per nursing staff is very difficult to give patient's oral meds/feeding due to somnolent state/altered mental status. Recommend PEG tube placement. AMS DM ESRD on HD CHF Hypertension -Medical management per primary team Care discussed with Dr. Jason Thank for consultation.
[2022-01-28] MEDS: LEVETIRACETAM IV SCH ×2 (12:06→21:00)
[2022-01-28] MEDS: NA CHLORIDE 0.9% IV SCH ×2 (12:06→21:00)
--- NOTE | 2022-01-28 12:55 | RAD REPORT ---
EXAM DESCRIPTION: RAD - Chest Single View - 01/28/2022 12:47 pm CLINICAL HISTORY: PICC line placement COMPARISON: January 19 FINDINGS: Portable chest was obtained following placement of a right upper extremity PICC line. The catheter tip is in the distal SVC.
[2022-01-28] MEDS ORDERED: NA CHLORIDE 0.9% 100 ML ONE (20:59)
[2022-01-28] MEDS: ATORVASTATIN 40 MG TAB PO SCH (21:00)
[2022-01-28] MEDS: ramipriL 5 MG CAP PO SCH (21:22)
[2022-01-29 04:54] LABS: MPV 8.4 fL (7.6-11.3); RBC Red Blood Cell Count 3.18 M/uL (3.86-4.86)
[2022-01-29 05:10] LABS: Phosphorus 4.7 mg/dL (2.5-4.9); Potassium 4.2 mmol/L (3.5-5.1)
[2022-01-29] MEDS: carvediloL 25 MG TAB PO SCH ×2 (06:27→17:16)
[2022-01-29] MEDS: METOPROLOL TAR 25 MG TAB PO SCH ×2 (06:27→17:16)
--- NOTE | 2022-01-29 06:38 | P.PN ---
Date of Service: 01/29/22 Subjective: stable, awake, mumbled responses for me nursing report intermittent more alert/awake at times ROS: difficult to obtain Physical exam GEN: NAD, squeezes R hand when asked, mumbles CV: Regular rate and rhythm, no edema Pulm: Non-labored respirations on room air ABD: Soft, nontender, nondistended Integumentary: b/l inguinal fold erythema Neuro: L sided weakness, awake, mumbles, L facial droop Problem List multiple acute CVAs Endocarditis, Enterococcus Acute hypoxemic respiratory failure secondary to COVID-19 pneumonia Acute metabolic encephalopathy secondary to bacteremia NSTEMI CAD CHF ESRD on HD DM 2 Enterococcus bacteremia with large vegetation - cause of acute CVAs neurology consulted, on folic acid, keppra. Patient has remained stable (Keppra dose reduced 1 week ago due to patient's lethargy) family did not want patient transferred to tertiary care center, no valve surgery, no plans for PEG. Patient previously stated "hell no", when asked about PEG tube discussed patient is extremely high risk to continue to form thrombi and lead to more CVAs. poor prognosis daughter wants to continue with treatment, no plan for hospice at this time continue with plan for HD cath placement today PICC placed 3/3 s/p dialysis cath removal on 01/13, and now s/p temporary femoral catheter placement 03/01 blood cx: Enterococcus, repeat cultures without growth since dialysis line removed ID consulted, continue antibiotics - 6 weeks total patient continues with waxing/waning mental status dialysis and continued antibiotics unlikely to improve her current situation secondary to multiple CVAs. Patient does not remember she had strokes / remember conversation from last week Code: Full Dispo: senior living, social work nurse assisting on placement Time Spent Managing Pts Care (In Minutes): 35
[2022-01-29] MEDS: INSULIN -REGULAR HUMAN 50 UNIT/0.5 ML ML SQ SCH ×4 (07:30→21:00)
[2022-01-29] MEDS: CALCIUM ACETATE 667 MG TAB PO SCH ×3 (08:00→17:16)
[2022-01-29] MEDS: NEPRO SHAKE 237 ML CAN PO SCH ×3 (09:00→21:00)
[2022-01-29] MEDS: NYSTATIN 500,000 UNIT/5 ML UDC PO SCH ×2 (09:00→14:00)
[2022-01-29] MEDS: DULERA 200/5 (MOMETASONE/FORMOTEROL) INHALER IH SCH ×2 (09:04→21:00)
[2022-01-29] MEDS: NYSTATIN PWDR 100000 UNIT/GM TOP PRN (09:04)
[2022-01-29] MEDS: THIAMINE HCL 100 MG TABLET PO SCH (09:08)
[2022-01-29] MEDS: NICOTINE 7 MG/PAT TD SCH (09:08)
[2022-01-29] MEDS: VITAMIN D 5,000 UNIT CAP PO SCH (09:08)
[2022-01-29] MEDS: TIZANIDINE 4 MG TABLET PO SCH ×2 (09:08→21:02)
[2022-01-29] MEDS: GABAPENTIN 300 MG CAP PO SCH ×2 (09:08→21:02)
[2022-01-29] MEDS: BENZONATATE 100 MG CAP PO PRN (09:08)
[2022-01-29] MEDS: AMPICILLIN SODIUM 2 GM in NA CHLORIDE 0.9% 100 ML IVPB SCH ×2 (09:30→21:12)
[2022-01-29] MEDS: CEFTRIAXONE 2,000 MG in NA CHLORIDE 0.9% 100 ML IV SCH ×2 (09:39→21:00)
[2022-01-29] MEDS: LACTOBACILLUS/ACIDOPHILUS TAB PO SCH ×3 (09:40→21:02)
[2022-01-29] MEDS: HYDRALAZINE HCL 25 MG TABLET PO SCH ×2 (09:40→21:02)
[2022-01-29] MEDS: NIFEDIPINE XL 30 MG TABLET PO SCH ×2 (09:40→21:12)
[2022-01-29] MEDS: NA CHLORIDE 0.9% IV SCH ×2 (10:24→21:12)
[2022-01-29] MEDS: LEVETIRACETAM IV SCH ×2 (10:24→21:12)
--- NOTE | 2022-01-29 15:41 | P.PN ---
Subjective Date of Service: 01/29/22 Chief Complaint: dizziness, weakness Patient seen and examined at bedside, was more awake and alert today. Review of Systems 10-point ROS is otherwise unremarkable Physical Examination - Vital Signs Temperature: 97.8 F Blood Pressure: 108/56 Pulse: 94 Respirations: 18 Pulse Ox (%): 90 - Studies Laboratory Last Values WBC 8.50 K/uL (4.3-10.9) 01/08/22 14:49 RBC 2.86 M/uL (3.86-4.86) L 01/08/22 14:49 Hgb 9.2 g/dL (12.0-15.0) L 01/08/22 14:49 Hct 27.8 % (36.0-45.0) L 01/08/22 14:49 MCV 97.4 fL (80-100) 01/08/22 14:49 MCH 32.3 pg (27.0-35.0) 01/08/22 14:49 MCHC 33.1 g/dL (32.0-36.0) 01/08/22 14:49 RDW 14.8 % (12.1-15.2) 01/08/22 14:49 Plt Count 125 K/uL (152-406) L 01/08/22 14:49 MPV 8.5 fL (7.6-11.3) 01/08/22 14:49 Neutrophils % 81.4 % (41.7-73.7) H 01/08/22 14:49 Lymphocytes % 9.9 % (15.3-44.8) L 01/08/22 14:49 Monocytes % 8.4 % (3.3-12.3) 01/08/22 14:49 Eosinophils % 0.0 % (0-4.4) 01/08/22 14:49 Basophils % 0.3 % (0-1.3) 01/08/22 14:49 Absolute Neutrophils 6.9 K/uL (1.8-8.0) 01/08/22 14:49 Absolute Lymphocytes 0.8 K/uL (0.7-4.9) 01/08/22 14:49 Absolute Monocytes 0.7 K/uL (0.1-1.3) 01/08/22 14:49 Absolute Eosinophils 0.0 K/uL (0-0.5) 01/08/22 14:49 Absolute Basophils 0.0 K/uL (0-0.5) 01/08/22 14:49 PT 13.2 SECONDS (9.5-12.5) H 01/08/22 14:49 INR 1.15 01/08/22 14:49 Sodium 139 mmol/L (136-145) 01/08/22 14:49 Potassium 3.1 mmol/L (3.5-5.1) L 01/08/22 14:49 Chloride 101 mmol/L (98-107) 01/08/22 14:49 Carbon Dioxide 30 mmol/L (21-32) 01/08/22 14:49 BUN 29 mg/dL (7-18) H 01/08/22 14:49 Creatinine 6.12 mg/dL (0.55-1.3) H* 01/08/22 14:49 Estimated GFR 8 mL/min (=/>90) L 01/08/22 14:49 Glucose 190 mg/dL (74-106) H 01/08/22 14:49 Lactic Acid 1.3 mmol/L (0.4-2.0) 01/08/22 18:00 Calcium 9.7 mg/dL (8.5-10.1) 01/08/22 14:49 Magnesium 2.1 mg/dL (1.8-2.4) D 01/08/22 14:49 Total Bilirubin 1.0 mg/dL (0.2-1.0) 01/08/22 14:49 Direct Bilirubin 0.6 mg/dL (0-0.2) H 01/08/22 14:49 AST 47 U/L (15-37) H 01/08/22 14:49 ALT 13 U/L (12-78) 01/08/22 14:49 Alkaline Phosphatase 69 U/L (45-117) 01/08/22 14:49 Troponin I High Sens 5974.70 pg/mL (<58.9) H* 01/08/22 14:49 NT-Pro-B Natriuret Pep 699207 pg/mL (<125) H 01/08/22 14:49 Serum Total Protein 7.2 g/dL (6.4-8.2) 01/08/22 14:49 Albumin 2.8 g/dL (3.4-5.0) L 01/08/22 14:49 Globulin 4.4 g/dL (2.3-3.5) H 01/08/22 14:49 Albumin/Globulin Ratio 0.6 (1.1-1.8) L 01/08/22 14:49 Lipase 64 U/L (73-393) L 01/08/22 14:49 SARS-CoV-2 Rap RNA(RT-PCR) Positive (NEGATIVE) A 01/08/22 14:49 Assessment And Plan - Plan Physical exam: General: In no apparent distress HEENT: Atraumatic Neck: Supple Respiratory: Other (Bibasilar crackles/rales) Cardiovascular: No edema, Regular rate/rhythm, systolic murmur Capillary refill: <2 Seconds Gastrointestinal: Normal bowel sounds, No tenderness Musculoskeletal: No clubbing, No swelling Integumentary: No rashes, No breakdown, No significant lesion Conclusions/Impression: Antibiotics Ampicillin: 01/13current Rocephin: 01/09current Vancomycin: Levaquin: Assessment/plan Gram-positive bacteremia Blood cultures obtained on 01/08 grew Enterococcus faecalis in 4/4 bottles. Additional repeat cultures obtained on 01/11 and 01/12 also positive for Enterococcus. Catheter tip culture obtained on 01/13+ for Enterococcus faecalis. Most recent blood cultures obtained on 01/14, 01/15, & 01/21 show no growth at 24 hours. Source of infection-infected right dialysis catheter. Dialysis catheter was removed on 01/13. Repeat echocardiogram obtained on 01/14 showed large mitral valve vegetation new since 01/11 echo. Brain MRI on 01/14 showed multiple infarcts, likely secondary to septic emboli. Repeat MRI on 01/20 showed new CVA in left cerebral hemisphere and midbrain. Patient will need IV antibiotics for at least 6 weeks~tentative completion date of 02/25. Right femoral dialysis catheter placed on 01/19. Patient had dialysis holiday from . Continue double coverage with IV Rocephin and ampicillin. Left arm PICC line removed on 01/28, right arm PICC line placed on 01/28. Recommend transferring patient to different hospital for mitral valve replacement due to large size vegetation, and recurrent embolic events noted on MRI scans. COVID-19 PNA On low amount of oxygen via [place]. Is out of window for remdesivir therapy. Continue to monitor closely. Asymptomatic. Vaginal candidiasis Single dose of oral Diflucan ordered Nystatin powder ordered to be applied to groin area Stage II sacral and left posterior thigh wound Wound care: Apply barrier cream and cover/protect with Mepilex. Continue to offload with wedge pillows, avoid direct pressure and reposition patient in bed every 2 hours during waking hours. Oral thrush Completed course of nystatin oral suspension. Protein caloric malnutrition: Moderate Albumin significantly downtrending, per nursing staff is very difficult to give patient's oral meds/feeding due to somnolent state/altered mental status. Recommend PEG tube placement. AMS DM ESRD on HD CHF Hypertension -Medical management per primary team Care discussed with Dr. Jason Thank for consultation.
[2022-01-29] MEDS: EPOETIN ALFA 10,000 UNIT/ML VIAL SQ SCH (17:20)
[2022-01-29] MEDS: ramipriL 5 MG CAP PO SCH (21:12)
[2022-01-29] MEDS: ATORVASTATIN 40 MG TAB PO SCH (21:23)
[2022-01-30 05:04] LABS: Phosphorus 5.3 mg/dL (2.5-4.9); Potassium 4.5 mmol/L (3.5-5.1)
[2022-01-30] MEDS: carvediloL 25 MG TAB PO SCH ×2 (05:17→16:24)
[2022-01-30] MEDS: METOPROLOL TAR 25 MG TAB PO SCH ×2 (05:17→16:52)
--- NOTE | 2022-01-30 06:48 | P.PN ---
Date of Service: 01/30/22 Subjective: seems more tired/lethargic today didn't want to eat breakfast ROS: difficult to obtain Physical exam GEN: NAD, lethargic CV: Regular rate and rhythm, no edema Pulm: Non-labored respirations on room air ABD: Soft, nontender, nondistended Integumentary: b/l inguinal fold erythema, raw skin on buttocks Neuro: L sided weakness, awake, mumbles, L facial droop Problem List multiple acute CVAs Endocarditis, Enterococcus Acute hypoxemic respiratory failure secondary to COVID-19 pneumonia Acute metabolic encephalopathy secondary to bacteremia NSTEMI CAD CHF ESRD on HD DM 2 Enterococcus bacteremia with large vegetation - cause of acute CVAs neurology consulted, on folic acid, keppra. Patient has remained stable (Keppra dose reduced 1 week ago due to patient's lethargy) family did not want patient transferred to tertiary care center, no valve surgery, no plans for PEG. Patient previously stated "hell no", when asked about PEG tube discussed patient is extremely high risk to continue to form thrombi and lead to more CVAs. poor prognosis daughter wants to continue with treatment, no plan for hospice at this time continue with plan for HD cath placement, delayed until tuesday PICC placed / s/p dialysis cath removal on 01/13, and now s/p temporary femoral catheter placement 03/01 blood cx: Enterococcus, repeat cultures without growth since dialysis line removed ID consulted, continue antibiotics - 6 weeks total patient continues with waxing/waning mental status dialysis and continued antibiotics unlikely to improve her current situation secondary to multiple CVAs. Patient does not remember she had strokes / remember conversation from last week Code: Full Dispo: care home, social media community manager assisting on placement Time Spent Managing Pts Care (In Minutes): 35
[2022-01-30] MEDS: INSULIN -REGULAR HUMAN 50 UNIT/0.5 ML ML SQ SCH ×4 (07:30→21:00)
[2022-01-30] MEDS: CALCIUM ACETATE 667 MG TAB PO SCH ×3 (08:55→16:08)
[2022-01-30] MEDS: LACTOBACILLUS/ACIDOPHILUS TAB PO SCH ×3 (08:55→21:25)
[2022-01-30] MEDS: TIZANIDINE 4 MG TABLET PO SCH ×2 (08:55→21:25)
[2022-01-30] MEDS: NIFEDIPINE XL 30 MG TABLET PO SCH ×2 (08:55→21:24)
[2022-01-30] MEDS: NICOTINE 7 MG/PAT TD SCH (08:55)
[2022-01-30] MEDS: VITAMIN D 5,000 UNIT CAP PO SCH (08:56)
[2022-01-30] MEDS: HYDRALAZINE HCL 25 MG TABLET PO SCH ×2 (08:56→21:25)
[2022-01-30] MEDS: GABAPENTIN 300 MG CAP PO SCH ×2 (08:56→21:23)
[2022-01-30] MEDS: DULERA 200/5 (MOMETASONE/FORMOTEROL) INHALER IH SCH ×2 (08:56→21:00)
[2022-01-30] MEDS: CEFTRIAXONE 2,000 MG in NA CHLORIDE 0.9% 100 ML IV SCH ×2 (08:56→21:23)
[2022-01-30] MEDS: AMPICILLIN SODIUM 2 GM in NA CHLORIDE 0.9% 100 ML IVPB SCH ×2 (08:56→21:22)
[2022-01-30] MEDS: THIAMINE HCL 100 MG TABLET PO SCH (08:57)
[2022-01-30] MEDS: NEPRO SHAKE 237 ML CAN PO SCH ×3 (09:00→21:00)
[2022-01-30] MEDS: NA CHLORIDE 0.9% IV SCH ×2 (09:00→21:22)
[2022-01-30] MEDS: LEVETIRACETAM IV SCH ×2 (09:00→21:22)
[2022-01-30] MEDS ORDERED: NA CHLORIDE 0.9% 250 ML ONE (09:06)
[2022-01-30] MEDS: HYDRALAZINE HCL 20 MG/ML VIAL IV PRN (16:21)
[2022-01-30] MEDS: ramipriL 5 MG CAP PO SCH (21:24)
[2022-01-30] MEDS: ATORVASTATIN 40 MG TAB PO SCH (21:25)
[2022-01-31] MEDS: METOPROLOL TAR 25 MG TAB PO SCH ×2 (05:02→17:01)
[2022-01-31] MEDS: carvediloL 25 MG TAB PO SCH ×2 (05:02→17:01)
[2022-01-31 05:31] LABS: Hematocrit 31.7 % (36.0-45.0); MPV 8.4 fL (7.6-11.3); RBC Red Blood Cell Count 3.28 M/uL (3.86-4.86)
[2022-01-31 05:54] LABS: Albumin 1.9 g/dL (3.4-5.0); Phosphorus 5.7 mg/dL (2.5-4.9); Potassium 4.3 mmol/L (3.5-5.1)
[2022-01-31 05:55] LABS: Magnesium 2.3 mg/dL (1.8-2.4)
--- NOTE | 2022-01-31 06:16 | P.PN ---
Date of Service: 01/31/22 Subjective: patient seems more lethargic today, drooling didn't want to eat glc borderline low ROS: difficult to obtain Physical exam GEN: NAD, lethargic CV: Regular rate and rhythm, no edema Pulm: Non-labored respirations on room air ABD: Soft, nontender, nondistended Integumentary: b/l inguinal fold erythema, raw skin on buttocks Neuro: L sided weakness, awake, mumbles, L facial droop Problem List multiple acute CVAs Endocarditis, Enterococcus Acute hypoxemic respiratory failure secondary to COVID-19 pneumonia Acute metabolic encephalopathy secondary to bacteremia NSTEMI CAD CHF ESRD on HD DM 2 Enterococcus bacteremia with large vegetation - cause of acute CVAs neurology consulted, on folic acid, keppra. Patient has remained stable (Keppra dose reduced 1 week ago due to patient's lethargy) family did not want patient transferred to tertiary care center, no valve surgery, no plans for PEG. Patient previously stated "hell no", when asked about PEG tube discussed patient is extremely high risk to continue to form thrombi and lead to more CVAs. poor prognosis daughter wants to continue with treatment, no plan for hospice at this time continue with plan for HD cath placement, delayed until tuesday PICC placed / s/p dialysis cath removal on 01/13, and now s/p temporary femoral catheter placement 03/01 blood cx: Enterococcus, repeat cultures without growth since dialysis line removed ID consulted, continue antibiotics - 6 weeks total patient continues with waxing/waning mental status dialysis and continued antibiotics unlikely to improve her current situation secondary to multiple CVAs. Patient does not remember she had strokes / remember conversation from last week Code: Full Dispo: fpc, social work lecturer assisting on placement will discuss further with daughter Time Spent Managing Pts Care (In Minutes): 35
[2022-01-31] MEDS: INSULIN -REGULAR HUMAN 50 UNIT/0.5 ML ML SQ SCH ×4 (07:30→20:57)
[2022-01-31] MEDS: CALCIUM ACETATE 667 MG TAB PO SCH ×3 (08:00→17:00)
[2022-01-31] MEDS ORDERED: D10W 250 ML IV PRN (08:04)
[2022-01-31] MEDS ORDERED: GLUCAGON 1 MG/VIAL IM PRN (08:09)
[2022-01-31] MEDS: VITAMIN D 5,000 UNIT CAP PO SCH ×2 (09:00)
[2022-01-31] MEDS: THIAMINE HCL 100 MG TABLET PO SCH ×2 (09:00→14:57)
[2022-01-31] MEDS: HYDRALAZINE HCL 25 MG TABLET PO SCH ×2 (09:00→20:56)
[2022-01-31] MEDS: TIZANIDINE 4 MG TABLET PO SCH ×2 (09:00→20:55)
[2022-01-31] MEDS: LACTOBACILLUS/ACIDOPHILUS TAB PO SCH ×3 (09:00→20:55)
[2022-01-31] MEDS: NIFEDIPINE XL 30 MG TABLET PO SCH ×2 (09:00→20:55)
[2022-01-31] MEDS: DULERA 200/5 (MOMETASONE/FORMOTEROL) INHALER IH SCH ×2 (09:00→21:00)
[2022-01-31] MEDS: NEPRO SHAKE 237 ML CAN PO SCH ×3 (09:00→20:57)
[2022-01-31] MEDS: GABAPENTIN 300 MG CAP PO SCH ×2 (09:00→20:55)
[2022-01-31] MEDS: AMPICILLIN SODIUM 2 GM in NA CHLORIDE 0.9% 100 ML IVPB SCH ×2 (09:14→20:56)
[2022-01-31] MEDS: CEFTRIAXONE 2,000 MG in NA CHLORIDE 0.9% 100 ML IV SCH ×2 (09:15→20:56)
[2022-01-31] MEDS: NA CHLORIDE 0.9% IV SCH ×2 (09:15→20:33)
[2022-01-31] MEDS: LEVETIRACETAM IV SCH ×2 (09:15→20:33)
[2022-01-31] MEDS: NICOTINE 7 MG/PAT TD SCH (09:16)
[2022-01-31] MEDS: ramipriL 5 MG CAP PO SCH (20:54)
[2022-01-31] MEDS: ATORVASTATIN 40 MG TAB PO SCH (20:56)
[2022-02-01 03:52] LABS: Hematocrit 31.7 % (36.0-45.0); MPV 8.4 fL (7.6-11.3); RBC Red Blood Cell Count 3.28 M/uL (3.86-4.86)
[2022-02-01 04:29] LABS: AST/SGOT 22 U/L (15-37); Albumin 1.8 g/dL (3.4-5.0); Alkaline Phosphatase 82 U/L (45-117); BUN Blood Urea Nitrogen 22 mg/dL (7-18); Bicarbonate 25 mmol/L (21-32); Bilirubin Total 0.3 mg/dL (0.2-1.0); Glucose Level 89 mg/dL (74-106); Magnesium 2.4 mg/dL (1.8-2.4); Potassium 4.3 mmol/L (3.5-5.1); Protein, Total 6.2 g/dL (6.4-8.2); Sodium Level 143 mmol/L (136-145)
[2022-02-01 04:33] LABS: ALT/SGPT < 6 U/L (12-78)
[2022-02-01] MEDS: carvediloL 25 MG TAB PO SCH ×2 (06:00→18:00)
--- NOTE | 2022-02-01 06:12 | P.PN ---
Date of Service: 02/01/22 Subjective: Spoke with daughter yesterday, discussed patient seemed more lethargic, not wanting to eat as much, albumin downtrending Overall worsening. Possibly had more strokes. Plan for family conference/meeting today to discuss plan of care ROS: difficult to obtain Physical exam GEN: NAD, lethargic, weak response CV: Regular rate and rhythm, no edema Pulm: Non-labored respirations ABD: Soft, nontender, nondistended Integumentary: raw skin on buttocks Neuro: L sided weakness, mumbles, L facial droop Problem List multiple acute CVAs Sespsis secondary to Endocarditis, Enterococcus; present on admission; without severe sepsis/shock Acute hypoxemic respiratory failure secondary to COVID-19 pneumonia Acute metabolic encephalopathy secondary to bacteremia NSTEMI CAD CHF ESRD on HD DM 2 Enterococcus bacteremia with large vegetation - cause of acute CVAs neurology consulted, on folic acid, keppra. Patient has remained stable (Keppra dose reduced 1 week ago due to patient's lethargy) family did not want patient transferred to tertiary care center, no valve surgery, no plans for PEG. Patient previously stated "hell no", when asked about PEG tube discussed patient is extremely high risk to continue to form thrombi and lead to more CVAs. poor prognosis continues with multiple CVAs, concerned patient may have had new CVA last 2 days Updated daughter on 01/31, discussed over the last 2 weeks patient has continued to clinically deteriorate despite optimizing her. Albumin continues to decrease Discussed that patient will continue to deteriorate, to consider hospice, not proceeding with dialysis catheter placements, and to consider not proceeding with dialysis as this seems to only prolong patient suffering Daughter stated that the family will discuss further, requesting another MRI to evaluate for repeat stroke, since this may change their decision. Family feel that stopping dialysis is equivalent to killing the patient. HD catheter placement on hold until family meeting. Tentatively to be done today, have not received confirmation remaining time from family PICC placed 01/28 s/p dialysis cath removal on 01/13, and now s/p temporary femoral catheter placement 03/01 blood cx: Enterococcus, repeat cultures without growth since dialysis line removed ID consulted, continue antibiotics - 6 weeks total patient continues with waxing/waning mental status, overall worsening Code: Full Dispo: half-way, director of social services assisting on placement awaiting further discussion with family. tentatively to be done today, however I have not heard back from family yet. Time Spent Managing Pts Care (In Minutes): 35
[2022-02-01] MEDS: INSULIN -REGULAR HUMAN 50 UNIT/0.5 ML ML SQ SCH ×4 (07:30→21:00)
[2022-02-01] MEDS: CALCIUM ACETATE 667 MG TAB PO SCH ×4 (08:00→17:00)
[2022-02-01] MEDS: GABAPENTIN 300 MG CAP PO SCH ×3 (08:45→21:00)
[2022-02-01] MEDS: LACTOBACILLUS/ACIDOPHILUS TAB PO SCH ×4 (09:00→21:00)
[2022-02-01] MEDS: HYDRALAZINE HCL 25 MG TABLET PO SCH ×2 (09:00→21:00)
[2022-02-01] MEDS: NEPRO SHAKE 237 ML CAN PO SCH ×3 (09:00→21:00)
[2022-02-01] MEDS: THIAMINE HCL 100 MG TABLET PO SCH ×2 (09:00→10:11)
[2022-02-01] MEDS: TIZANIDINE 4 MG TABLET PO SCH ×3 (09:00→21:00)
[2022-02-01] MEDS: VITAMIN D 5,000 UNIT CAP PO SCH ×3 (09:00→10:12)
[2022-02-01] MEDS: DULERA 200/5 (MOMETASONE/FORMOTEROL) INHALER IH SCH ×2 (09:45→21:00)
[2022-02-01] MEDS ORDERED: LORazepam 2 MG/ML VIAL IV ONE (10:00)
[2022-02-01] MEDS: AMPICILLIN SODIUM 2 GM in NA CHLORIDE 0.9% 100 ML IVPB SCH ×2 (10:10→22:05)
[2022-02-01] MEDS: NICOTINE 7 MG/PAT TD SCH (10:12)
[2022-02-01] MEDS: NIFEDIPINE XL 30 MG TABLET PO SCH ×2 (10:13→21:00)
[2022-02-01] MEDS: CEFTRIAXONE 2,000 MG in NA CHLORIDE 0.9% 100 ML IV SCH ×2 (10:21→22:07)
[2022-02-01] MEDS: METOPROLOL TAR 25 MG TAB PO SCH ×2 (10:23→18:00)
[2022-02-01] MEDS: NA CHLORIDE 0.9% IV SCH ×2 (10:44→22:05)
[2022-02-01] MEDS: LEVETIRACETAM IV SCH ×2 (10:44→22:05)
[2022-02-01] MEDS ORDERED: LORazepam 2 MG/ML VIAL IV SCH (13:30)
--- NOTE | 2022-02-01 15:52 | RAD REPORT ---
EXAM DESCRIPTION: MRI - Brain Wo Cont - 02/01/2022 3:40 pm CLINICAL HISTORY: r/o new infarcts Headache, drowsiness, CVA COMPARISON: MRA Head Wo Cont dated 01/20/2022; Brain Wo Cont dated 01/20/2022 TECHNIQUE: Multi-sequence, multiplanar MR imaging of the brain was performed without contrast. FINDINGS: A new small acute infarct is noted measuring 4 mm left posterior internal capsule. The add itional areas of infarction seen in the midbrain, left frontal region and right posterior periventric ular white matter are again noted and appears slightly more prominent. In particularly the infarct ri ght posterior periventricular white matter currently measures 17 mm, previously 13 mm. Mild bilateral mastoid effusions. Small amount of fluid is seen right sphenoid sinus. IMPRESSION: Mild progression in the previously detected acute infarcts as described above with a sma ll focus of new CVA seen posterior left internal capsule. Moderate confluent periventricular and deep white matter chronic microvascular ischemic changes.
[2022-02-01] MEDS: EPOETIN ALFA 10,000 UNIT/ML VIAL SQ SCH (18:19)
--- NOTE | 2022-02-01 18:51 | P.PN ---
Date of Service: 02/01/22 Vital Signs Temp Pulse Resp BP Pulse Ox 97.8 F 60 14 115/59 L 100 02/01/22 16:00 02/01/22 16:00 02/01/22 16:00 02/01/22 16:00 02/01/22 16:00 Medications Acetaminophen (Acetaminophen 500 Mg Tab) 500 mg PO Q4HP PRN PRN Reason: Pain scale 2-4 (Mild) Last Admin: 01/28/22 09:51 Dose: 500 mg Documented by: Atorvastatin Calcium (Atorvastatin 40 Mg Tab) 40 mg PO BEDTIME [facility] Last Admin: 01/31/22 20:56 Dose: 40 mg Documented by: Benzonatate (Benzonatate 100 Mg Cap) 100 mg PO TID PRN PRN Reason: COUGH Last Admin: 01/29/22 09:08 Dose: 100 mg Documented by: Calcium Acetate (Calcium Acetate 667 Mg Tab) 1,334 mg PO TIDWM [facility] Last Admin: 02/01/22 17:00 Dose: Not Given Documented by: Carvedilol (Carvedilol 25 Mg Tab) 25 mg PO BID 6AM 6PM [facility] Last Admin: 02/01/22 06:00 Dose: Not Given Documented by: Cholecalciferol (Vitamin D 5,000 Unit Cap) 5,000 unit PO DAILY [facility] Last Admin: 02/01/22 10:12 Dose: 5,000 unit Documented by: Enteral Nutritional Formula (Nepro Shake 237 Ml Can) 237 ml PO TID [facility] Last Admin: 02/01/22 14:00 Dose: Not Given Documented by: Epoetin Tommy (Epoetin Tommy 10,000 Unit/Ml Vial) 10,000 unit SQ M,W,F [facility] Last Admin: 02/01/22 18:19 Dose: 10,000 unit Documented by: Gabapentin (Gabapentin 300 Mg Cap) 300 mg PO BID [facility] Last Admin: 02/01/22 09:00 Dose: Not Given Documented by: Glucagon (Glucagon 1 Mg/Vial) 1 mg IM 1X PRN; Protocol PRN Reason: HYPOGLYCEMIA Heparin Sodium (Porcine) (Heparin 1,000 Unit/Ml Vial) 6,000 unit IV EVERY HD PRN PRN Reason: DIALYSIS Hydralazine HCl (Hydralazine Hcl 20 Mg/Ml Vial) 10 mg IV Q6HP PRN PRN Reason: Titrate to SBP (MUST DEFINE) Last Admin: 01/30/22 16:21 Dose: 10 mg Documented by: Hydralazine HCl (Hydralazine Hcl 25 Mg Tablet) 50 mg PO BID [facility] Last Admin: 02/01/22 09:00 Dose: Not Given Documented by: Ampicillin Sodium 2 gm/ Sodium (Chloride) 100 mls @ 200 mls/hr IVPB Q12HR [facility] Stop: 02/26/22 10:01 Last Admin: 02/01/22 10:10 Dose: 100 mls Documented by: Levetiracetam 125 mg/ Sodium (Chloride) 101.25 mls @ 410 mls/hr IV BID [facility] Last Admin: 02/01/22 10:44 Dose: 101.25 mls Documented by: Ceftriaxone Sodium 2,000 mg/ (Sodium Chloride) 100 mls @ 200 mls/hr IV Q12HR [facility]; Protocol Stop: 02/26/22 09:01 Last Admin: 02/01/22 10:21 Dose: 100 mls Documented by: Dextrose (Dextrose 10% Water Iv Soln.) 125 mls @ 0 mls/hr IV PRN PRN; Protocol PRN Reason: HYPOGLYCEMIA Insulin Human Regular (Insulin -Regular Human 50 Unit/0.5 Ml Ml) 0 unit SQ ACHS [facility]; Protocol Last Admin: 02/01/22 16:30 Dose: Not Given Documented by: Lactobacillus Acidoph/Bulgaricus (Lactobacillus/Acidophilus Tab) 1 tab PO TID [facility] Last Admin: 02/01/22 14:00 Dose: Not Given Documented by: Metoprolol Tartrate (Metoprolol Tar 25 Mg Tab) 25 mg PO BID 6AM 6PM [facility] Last Admin: 02/01/22 10:23 Dose: 25 mg Documented by: Nicotine (Nicotine 7 Mg/Pat) 7 mg TD DAILY [facility] Last Admin: 02/01/22 10:12 Dose: 7 mg Documented by: Nifedipine (Nifedipine Xl 30 Mg Tablet) 30 mg PO BID [facility] Last Admin: 02/01/22 10:13 Dose: 30 mg Documented by: Nystatin (Nystatin Pwdr [id number] Unit/Gm) 1 appl TOP DAILY PRN PRN Reason: RASH Last Admin: 01/29/22 09:04 Dose: 1 appl Documented by: Ondansetron HCl (Ondansetron 4 Mg/2 Ml Vial) 4 mg IV Q6HP PRN PRN Reason: NAUSEA / VOMITING Ramipril (Ramipril 5 Mg Cap) 10 mg PO BEDTIME [facility] Last Admin: 01/31/22 20:54 Dose: 10 mg Documented by: Sodium Chloride (Flush Normal Saline 10 Ml) 10 ml IV BID [facility] Last Admin: 02/01/22 09:00 Dose: 10 ml Documented by: Thiamine HCl (Thiamine Hcl 100 Mg Tablet) 100 mg PO DAILY [facility] Last Admin: 02/01/22 09:00 Dose: Not Given Documented by: Tizanidine HCl (Tizanidine 4 Mg Tablet) 4 mg PO BID [facility] Last Admin: 02/01/22 09:00 Dose: Not Given Documented by: Microbiology Results 01/08/22 17:50 Blood - Blood Aerobic Blood Culture - Final Enterococcus Faecalis 01/08/22 17:50 Blood - Blood Blood Culture Gram Stain - Final 01/08/22 17:50 Blood - Blood Anaerobic Blood Culture - Final Enterococcus Faecalis 01/08/22 17:50 Blood - Blood Gram Stain - Final 01/08/22 18:00 Blood - Blood Aerobic Blood Culture - Final Enterococcus Faecalis 01/08/22 18:00 Blood - Blood Blood Culture Gram Stain - Final 01/08/22 18:00 Blood - Blood Anaerobic Blood Culture - Final Enterococcus Faecalis 01/08/22 18:00 Blood - Blood Gram Stain - Final Assessment/ Plan: Nephrology No dyspnea No chest pain Appetite variable Waxing and waning mental status No acute events overnight Vitals, medications, blood work and imaging reviewed in the chart. NAD. NCAT. MMM. Neck supple. Normal respiratory effort. RRR. Abd ND. No C/C/E. No rash. Somnolent. No speech. 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 Daughter states she will not pursue an AVF in the future due to her history of unsuccessful fistulas. -Plan for repeat MRI EXAM DESCRIPTION: MRI - Brain Wo Cont - 01/14/2022 12:01 pm CLINICAL HISTORY: r/o stroke, left sided weakness COMPARISON: Head Brain Wo Cont dated 01/09/2022 TECHNIQUE: Sagittal T1-weighted images were obtained along with PD/heavily T2-w eighted and T2-FLAIR images. Axial DWI and ADC mapping sequences were also obtained along with coronal heavily T2-weighted images were obtained. FINDINGS: Multiple bilateral infarcts identified, the largest in the body of the caudate on the right measuring 17 millimeters. There are multiple in the basal ganglia and alfredo radiata as well as some small cortical infarcts in the frontal lobes. Small infarct in the right lobe of the cerebellum. Advanced chronic small vessel ischemic changes. Cerebral atrophy. No mass effect or midline shift. Mastoid air cells and paranasal sinuses are clear. IMPRESSION: Bilateral small cortical, deep white matter, basal ganglia, and cerebellar infarcts involving multiple vascular distributions. This could be secondary to cardioembolic source.
[2022-02-01] MEDS: ramipriL 5 MG CAP PO SCH (21:00)
[2022-02-01] MEDS: ATORVASTATIN 40 MG TAB PO SCH (21:00)
[2022-02-02 04:48] LABS: Albumin 2.1 g/dL (3.4-5.0); Magnesium 2.5 mg/dL (1.8-2.4); Phosphorus 6.7 mg/dL (2.5-4.9); Potassium 4.2 mmol/L (3.5-5.1)
[2022-02-02] MEDS: METOPROLOL TAR 25 MG TAB PO SCH ×2 (06:00→18:00)
[2022-02-02] MEDS: carvediloL 25 MG TAB PO SCH ×2 (06:00→18:00)
[2022-02-02] MEDS: INSULIN -REGULAR HUMAN 50 UNIT/0.5 ML ML SQ SCH ×4 (07:30→21:00)
[2022-02-02] MEDS: CALCIUM ACETATE 667 MG TAB PO SCH ×3 (08:00→17:00)
[2022-02-02] MEDS: DULERA 200/5 (MOMETASONE/FORMOTEROL) INHALER IH SCH ×2 (09:00→20:48)
[2022-02-02] MEDS: NIFEDIPINE XL 30 MG TABLET PO SCH ×2 (09:00→20:48)
[2022-02-02] MEDS: NICOTINE 7 MG/PAT TD SCH (09:00)
[2022-02-02] MEDS: HYDRALAZINE HCL 25 MG TABLET PO SCH ×2 (09:00→20:48)
[2022-02-02] MEDS: TIZANIDINE 4 MG TABLET PO SCH ×2 (09:00→20:48)
[2022-02-02] MEDS: THIAMINE HCL 100 MG TABLET PO SCH (09:00)
[2022-02-02] MEDS: GABAPENTIN 300 MG CAP PO SCH ×2 (09:00→20:48)
[2022-02-02] MEDS: LACTOBACILLUS/ACIDOPHILUS TAB PO SCH ×3 (09:00→20:47)
[2022-02-02] MEDS: NEPRO SHAKE 237 ML CAN PO SCH ×3 (09:00→20:47)
[2022-02-02] MEDS: LEVETIRACETAM IV SCH ×2 (10:27→20:54)
[2022-02-02] MEDS: CEFTRIAXONE 2,000 MG in NA CHLORIDE 0.9% 100 ML IV SCH ×2 (10:27→20:55)
[2022-02-02] MEDS: NA CHLORIDE 0.9% IV SCH ×2 (10:27→20:54)
[2022-02-02] MEDS: AMPICILLIN SODIUM 2 GM in NA CHLORIDE 0.9% 100 ML IVPB SCH ×2 (10:28→20:54)
[2022-02-02] MEDS: D10W 125 ML IV PRN ×3 (12:14→21:19)
[2022-02-02] MEDS: HYDRALAZINE HCL 20 MG/ML VIAL IV PRN ×2 (12:15→22:31)
--- NOTE | 2022-02-02 12:30 | PN ---
Ms. Harris is a 61-year-old patient, known by us due to history of hemodialysis, removal of the cath eter and a new catheter placed urgently on the right femoral region. Yesterday, we had her schedule for a replacement of the catheter, but her medical condition deteriorated, so the primary doctor asked me to hold the change of the catheter since that one we have right now was working good. At one point, we have to address the issue, but at the same time, we have to make it in a safe fas ion since the patient does not cooperate during surgery and changing the neck or chest may require some sedation. At this moment, Anesthesia does not feel comfortable with it and because the patient's movement makes dangerous to put the catheter in that region. So, we canceled the case. O nce again, we will continue medical management and change the catheter as we can and also as per vi gorman doctor and holding the procedure for medical reasons. RHYS/CHANO Voice ID: [id number] Report ID: [id number]
--- NOTE | 2022-02-02 16:37 | P.PN ---
Subjective Date of Service: 02/02/22 Chief Complaint: dizziness, weakness Patient clinical condition declined. Most recent MRI 02/01 is reporting additional new strokes. Patient experiencing intermittent borderline hypoglycemia. She is not being fed due to decreased mentation. Physical Examination - Vital Signs Temperature: 98.8 F Blood Pressure: 156/77 Pulse: 86 Respirations: 20 Pulse Ox (%): 98 Assessment And Plan - Plan Physical exam GEN: unresponsive. CV: Regular rate and rhythm, no edema Pulm: bilateral upper airway transmitted sounds. ABD: Soft, nontender, nondistended Neuro: Left-sided weakness, no response to verbal. Problem List multiple acute CVAs Endocarditis, Enterococcus Acute hypoxemic respiratory failure secondary to COVID-19 pneumonia Acute metabolic encephalopathy secondary to bacteremia NSTEMI CAD CHF ESRD on HD DM 2 Enterococcus bacteremia with large vegetation - cause of acute CVAs neurology consulted, on folic acid, keppra. Patient has remained stable (Keppra dose reduced 1 week ago due to patient's lethargy) family did not want patient transferred to tertiary care center, no valve surgery, no plans for PEG. Patient previously stated "hell no", when asked about PEG tube discussed patient is extremely high risk to continue to form thrombi and lead to more CVAs. poor prognosis continues with multiple CVAs, MRI of the brain demonstrating additional new CVA Updated daughter on 01/31, discussed over the last 2 weeks patient has continued to clinically deteriorate despite optimizing her. Albumin continues to decrease Family have agreed to hospice. Awaiting for hospice evaluation to initiate inpatient hospice. HD catheter placement on hold. PICC placed / s/p dialysis cath removal on 01/13, and now s/p temporary femoral catheter placement 03/01 blood cx: Enterococcus, repeat cultures without growth since dialysis line removed Seen by ID continue antibiotics -slated for 6 weeks total. We will stop antibiotics once patient is accepted to hospice. Overall progressive decline in clinical condition and mental status. Patient is appropriate for hospice.
--- NOTE | 2022-02-02 20:24 | P.PN ---
Date of Service: 02/02/22 Vital Signs Temp Pulse Resp BP Pulse Ox 98.8 F 86 20 156/77 H 98 02/02/22 16:37 02/02/22 16:37 02/02/22 16:37 02/02/22 16:37 02/02/22 16:37 Medications Acetaminophen (Acetaminophen 500 Mg Tab) 500 mg PO Q4HP PRN PRN Reason: Pain scale 2-4 (Mild) Last Admin: 01/28/22 09:51 Dose: 500 mg Documented by: Atorvastatin Calcium (Atorvastatin 40 Mg Tab) 40 mg PO BEDTIME [facility] Last Admin: 02/01/22 21:00 Dose: Not Given Documented by: Benzonatate (Benzonatate 100 Mg Cap) 100 mg PO TID PRN PRN Reason: COUGH Last Admin: 01/29/22 09:08 Dose: 100 mg Documented by: Calcium Acetate (Calcium Acetate 667 Mg Tab) 1,334 mg PO TIDWM [facility] Last Admin: 02/02/22 08:00 Dose: Not Given Documented by: Carvedilol (Carvedilol 25 Mg Tab) 25 mg PO BID 6AM 6PM [facility] Last Admin: 02/02/22 06:00 Dose: Not Given Documented by: Cholecalciferol (Vitamin D 5,000 Unit Cap) 5,000 unit PO DAILY [facility] Last Admin: 02/01/22 10:12 Dose: 5,000 unit Documented by: Enteral Nutritional Formula (Nepro Shake 237 Ml Can) 237 ml PO TID [facility] Last Admin: 02/02/22 09:00 Dose: Not Given Documented by: Epoetin Tommy (Epoetin Tommy 10,000 Unit/Ml Vial) 10,000 unit SQ M,W,F [facility] Last Admin: 02/01/22 18:19 Dose: 10,000 unit Documented by: Gabapentin (Gabapentin 300 Mg Cap) 300 mg PO BID [facility] Last Admin: 02/02/22 09:00 Dose: Not Given Documented by: Glucagon (Glucagon 1 Mg/Vial) 1 mg IM 1X PRN; Protocol PRN Reason: HYPOGLYCEMIA Heparin Sodium (Porcine) (Heparin 1,000 Unit/Ml Vial) 6,000 unit IV EVERY HD PRN PRN Reason: DIALYSIS Hydralazine HCl (Hydralazine Hcl 20 Mg/Ml Vial) 10 mg IV Q6HP PRN PRN Reason: Titrate to SBP (MUST DEFINE) Last Admin: 02/02/22 12:15 Dose: 10 mg Documented by: Hydralazine HCl (Hydralazine Hcl 25 Mg Tablet) 50 mg PO BID [facility] Last Admin: 02/02/22 09:00 Dose: Not Given Documented by: Ampicillin Sodium 2 gm/ Sodium (Chloride) 100 mls @ 200 mls/hr IVPB Q12HR [facility] Stop: 02/26/22 10:01 Last Admin: 02/02/22 10:28 Dose: 100 mls Documented by: Levetiracetam 125 mg/ Sodium (Chloride) 101.25 mls @ 410 mls/hr IV BID [facility] Last Admin: 02/02/22 10:27 Dose: 101.25 mls Documented by: Ceftriaxone Sodium 2,000 mg/ (Sodium Chloride) 100 mls @ 200 mls/hr IV Q12HR [facility]; Protocol Stop: 02/26/22 09:01 Last Admin: 02/02/22 10:27 Dose: 100 mls Documented by: Dextrose (Dextrose 10% Water Iv Soln.) 125 mls @ 0 mls/hr IV PRN PRN; Protocol PRN Reason: HYPOGLYCEMIA Last Admin: 02/02/22 16:28 Dose: 125 mls Documented by: Insulin Human Regular (Insulin -Regular Human 50 Unit/0.5 Ml Ml) 0 unit SQ ACHS [facility]; Protocol Last Admin: 02/02/22 07:30 Dose: Not Given Documented by: Lactobacillus Acidoph/Bulgaricus (Lactobacillus/Acidophilus Tab) 1 tab PO TID [facility] Last Admin: 02/02/22 09:00 Dose: Not Given Documented by: Metoprolol Tartrate (Metoprolol Tar 25 Mg Tab) 25 mg PO BID 6AM 6PM [facility] Last Admin: 02/02/22 06:00 Dose: Not Given Documented by: Nicotine (Nicotine 7 Mg/Pat) 7 mg TD DAILY [facility] Last Admin: 02/02/22 09:00 Dose: Not Given Documented by: Nifedipine (Nifedipine Xl 30 Mg Tablet) 30 mg PO BID [facility] Last Admin: 02/02/22 09:00 Dose: Not Given Documented by: Nystatin (Nystatin Pwdr [id number] Unit/Gm) 1 appl TOP DAILY PRN PRN Reason: RASH Last Admin: 01/29/22 09:04 Dose: 1 appl Documented by: Ondansetron HCl (Ondansetron 4 Mg/2 Ml Vial) 4 mg IV Q6HP PRN PRN Reason: NAUSEA / VOMITING Ramipril (Ramipril 5 Mg Cap) 10 mg PO BEDTIME [facility] Last Admin: 02/01/22 21:00 Dose: Not Given Documented by: Sodium Chloride (Flush Normal Saline 10 Ml) 10 ml IV BID [facility] Last Admin: 02/02/22 09:00 Dose: 10 ml Documented by: Thiamine HCl (Thiamine Hcl 100 Mg Tablet) 100 mg PO DAILY [facility] Last Admin: 02/02/22 09:00 Dose: Not Given Documented by: Tizanidine HCl (Tizanidine 4 Mg Tablet) 4 mg PO BID [facility] Last Admin: 02/02/22 09:00 Dose: Not Given Documented by: Microbiology Results 01/08/22 17:50 Blood - Blood Aerobic Blood Culture - Final Enterococcus Faecalis 01/08/22 17:50 Blood - Blood Blood Culture Gram Stain - Final 01/08/22 17:50 Blood - Blood Anaerobic Blood Culture - Final Enterococcus Faecalis 01/08/22 17:50 Blood - Blood Gram Stain - Final 01/08/22 18:00 Blood - Blood Aerobic Blood Culture - Final Enterococcus Faecalis 01/08/22 18:00 Blood - Blood Blood Culture Gram Stain - Final 01/08/22 18:00 Blood - Blood Anaerobic Blood Culture - Final Enterococcus Faecalis 01/08/22 18:00 Blood - Blood Gram Stain - Final Assessment/ Plan: Nephrology No dyspnea No chest pain Appetite variable Waxing and waning mental status No acute events overnight Vitals, medications, blood work and imaging reviewed in the chart. NAD. NCAT. MMM. Neck supple. Normal respiratory effort. RRR. Abd ND. No C/C/E. No rash. Somnolent. No speech. ESRD -HD today HTN with CKD/ CHF -Continue Ramipril -Continue Nifedipine ER 30mg BID Diastolic CHF, chronic -Low sodium diet -Continue Coreg DM II with CKD -RISS Moderate malnutrition -Continue Nepro Anemia in CKD -Retacrit TIW CKD MBD -Continue Phoslo Toxic metabolic encephalopathy due to multiple brain infarcts Mitral vegetation/ Endocarditis/ Bacteremia -Continue abx for Enterococcus faecalis -PICC for chcf abx. Daughter states she will not pursue an AVF in the future due to her history of unsuccessful fistulas. -Plan for repeat MRI EXAM DESCRIPTION: MRI - Brain Wo Cont - 01/14/2022 12:01 pm CLINICAL HISTORY: r/o stroke, left sided weakness COMPARISON: Head Brain Wo Cont dated 01/09/2022 TECHNIQUE: Sagittal T1-weighted images were obtained along with PD/heavily T2- weighted and T2-FLAIR images. Axial DWI and ADC mapping sequences were also obtained along with coronal heavily T2-weighted images were obtained. FINDINGS: Multiple bilateral infarcts identified, the largest in the body of the caudate on the right measuring 17 millimeters. There are multiple in the basal ganglia and alfredo radiata as well as some small cortical infarcts in the frontal lobes. Small infarct in the right lobe of the cerebellum. Advanced chronic small vessel ischemic changes. Cerebral atrophy. No mass effect or midline shift. Mastoid air cells and paranasal sinuses are clear. IMPRESSION: Bilateral small cortical, deep white matter, basal ganglia, and cerebellar infarcts involving multiple vascular distributions. This could be secondary to cardioembolic source.
[2022-02-02] MEDS: ATORVASTATIN 40 MG TAB PO SCH (20:48)
[2022-02-02] MEDS: ramipriL 5 MG CAP PO SCH (20:48)
[2022-02-03 03:48] LABS: Absolute Lymphocytes (CBC) 1.1 K/uL (0.7-4.9); Hematocrit 34.9 % (36.0-45.0); Lymphocytes % 15.8 % (15.3-44.8); MPV 8.2 fL (7.6-11.3); RBC Red Blood Cell Count 3.69 M/uL (3.86-4.86)
[2022-02-03 04:23] LABS: Potassium 3.8 mmol/L (3.5-5.1)
[2022-02-03] MEDS: HYDRALAZINE HCL 20 MG/ML VIAL IV PRN (05:17)
[2022-02-03] MEDS: METOPROLOL TAR 25 MG TAB PO SCH (05:18)
[2022-02-03] MEDS: carvediloL 25 MG TAB PO SCH (05:18)
[2022-02-03] MEDS: INSULIN -REGULAR HUMAN 50 UNIT/0.5 ML ML SQ SCH (07:30)
[2022-02-03] MEDS: CALCIUM ACETATE 667 MG TAB PO SCH (08:00)
[2022-02-03] MEDS ORDERED: NA CHLORIDE 0.9% 200 ML ONE (08:09)
[2022-02-03] MEDS ORDERED: CEFTRIAXONE 2000 MG/VIAL ONE (08:19)
[2022-02-03 08:38] VITALS: O2SAT 94
[2022-02-03] MEDS: LACTOBACILLUS/ACIDOPHILUS TAB PO SCH (08:39)
[2022-02-03] MEDS: NEPRO SHAKE 237 ML CAN PO SCH (08:39)
[2022-02-03] MEDS: HYDRALAZINE HCL 25 MG TABLET PO SCH (08:39)
[2022-02-03] MEDS: NIFEDIPINE XL 30 MG TABLET PO SCH (08:40)
[2022-02-03] MEDS: GABAPENTIN 300 MG CAP PO SCH (08:40)
[2022-02-03] MEDS: THIAMINE HCL 100 MG TABLET PO SCH (08:40)
[2022-02-03] MEDS: TIZANIDINE 4 MG TABLET PO SCH (08:40)
[2022-02-03] MEDS: VITAMIN D 5,000 UNIT CAP PO SCH (08:40)
[2022-02-03 08:41] VITALS: BP 133/77
[2022-02-03] MEDS: NICOTINE 7 MG/PAT TD SCH (08:42)
[2022-02-03] MEDS: CEFTRIAXONE 2,000 MG in NA CHLORIDE 0.9% 100 ML IV SCH (08:42)
[2022-02-03] MEDS: LEVETIRACETAM IV SCH (08:46)
[2022-02-03] MEDS: NA CHLORIDE 0.9% IV SCH (08:46)
[2022-02-03] MEDS: AMPICILLIN SODIUM 2 GM in NA CHLORIDE 0.9% 100 ML IVPB SCH (08:46)
[2022-02-03] MEDS: DULERA 200/5 (MOMETASONE/FORMOTEROL) INHALER IH SCH (08:47)
[2022-02-03 09:15] VITALS: TEMP 98.6
--- NOTE | 2022-02-03 09:51 | P.DS ---
Admission Date: 01/08/22 Discharge Date: 02/03/22 Disposition: HOSPICE-MEDICAL FACILITY Reason for Admission: dizziness, weakness Brief History of Present Illness: Ms. Harris is a 61 yo F with CHF, ESRD on HD TTS, and HTN who presents with weakness, dizziness and AMS. Per daughter, dialysis nurses says that patient was not acting like herself. Symptoms began the day prior after hemodialysis. Patient was later found on the floor confused and was therefore brought to the emergency department. At bedside she was able to answer some questions, AOx2. COVID+, was admitted for covid pneumonia one month prior and improved. Hemoglobin 9.2 Plt 125 K 3.1 Troponin 5974 BUN 29 Cr 6.12 GFR 8 Glu 190 Dbili [id number] IMPRESSION: Mild atrophy and mild to moderate chronic ischemic changes are present but no acute intracranial finding seen. Mild cervical spine degenerative change with no acute finding. Mild CHF/volume overload pattern with bilateral posterior gutter atelectasis and trace pleural effusion. Cardiomegaly is present. Mild hepatosplenomegaly with no emergent abdomen or pelvis finding. Ovaries are difficult to distinguish from adjacent on opacified bowel. There is fullness in the right superior adnexa that is probably volume averaging of bowel, ovary and small amount of free fluid rather than mass. Follow-up pelvic ultrasound or follow-up CT pelvis following oral contrast could be performed. CXR IMPRESSION: Mild CHF/volume overload pattern. Patient hospitalized for further management. Hospital Course: Diagnosis multiple acute CVAs Sespsis secondary to Endocarditis, Enterococcus; present on admission; without severe sepsis/shock Acute hypoxemic respiratory failure secondary to COVID-19 pneumonia Acute metabolic encephalopathy secondary to bacteremia NSTEMI CAD CHF ESRD on HD DM 2 Patient admitted to the medical floor. Multiple blood cultures grew Enterococcus. Echocardiogram revealed large vegetation in the mitral area. Patient also developed acute embolic CVA Seen by neurology, patient started on on folic acid, keppra. Family did not want patient transferred to tertiary care center, no valve surgery, no plans for PEG. She was treated with several days of IV antibiotics for the enterococcal bacteremia and endocarditis. 6th blood culture set became negative. Patient had a dialysis catheter which was removed. The catheter tip also grew Enterococcus. Patient was seen by ID who assisted with management. She was also seen by nephrology for ESRD. She was seen by general surgery who placed temporary dialysis catheter after blood cultures became negative and patient underwent routine hemodialysis. She developed new CVAs, mental status continued to decline, Patient did not respond to treatment, her condition continued to decline with additional new CVAs. Family decided to pursue hospice. Patient discharged to inpatient hospice. Vital Signs/Physical Exam: Temp Pulse Resp BP Pulse Ox 98.6 F 89 16 133/77 98 02/03/22 08:00 02/03/22 08:00 02/03/22 08:00 02/03/22 08:40 02/03/22 08:00 General: Unresponsive Neck: JVD not distended Respiratory: Other (Bilateral upper airway transmitted sounds) Cardiovascular: Regular rate/rhythm, Systolic murmur Gastrointestinal: Soft and benign, Non-distended, No tenderness Integumentary: No rashes Laboratory Data at Discharge: WBC 6.70 K/uL (4.3-10.9) D 02/03/22 03:20 Hgb 11.3 g/dL (12.0-15.0) L 02/03/22 03:20 Hct 34.9 % (36.0-45.0) L 02/03/22 03:20 Plt Count 181 K/uL (152-406) 02/03/22 03:20 PT 11.6 SECONDS (9.5-12.5) 01/14/22 14:42 INR 1.01 01/14/22 14:42 APTT 73.5 SECONDS (24.3-36.9) H 01/17/22 03:55 Sodium 140 mmol/L (136-145) 02/03/22 03:20 Potassium 3.8 mmol/L (3.5-5.1) 02/03/22 03:20 BUN 15 mg/dL (7-18) 02/03/22 03:20 Creatinine 6.92 mg/dL (0.55-1.3) H* D 02/03/22 03:20 Glucose 78 mg/dL (74-106) 02/03/22 03:20 Uric Acid 9.9 mg/dL (2.6-6.0) H D 01/18/22 06:30 Phosphorus 6.7 mg/dL (2.5-4.9) H 02/02/22 04:15 Magnesium 2.5 mg/dL (1.8-2.4) H 02/02/22 04:15 Total Bilirubin 0.3 mg/dL (0.2-1.0) 02/01/22 03:20 AST 22 U/L (15-37) 02/01/22 03:20 ALT < 6 U/L (12-78) L 02/01/22 03:20 Alkaline Phosphatase 82 U/L (45-117) 02/01/22 03:20 Triglycerides 183 mg/dL (<150) H 01/09/22 05:43 Cholesterol 101 mg/dL (<200) 01/09/22 05:43 HDL Cholesterol 16 mg/dL (40-60) L 01/09/22 05:43 Cholesterol/HDL Ratio 6.31 01/09/22 05:43 Lipase 64 U/L (73-393) L 01/08/22 14:49 Followup: NONE,NONE [Primary Care Provider] - Time spent managing pt's care (in minutes): 42
--- NOTE | 2022-02-03 19:08 | P.PN ---
Date of Service: 02/03/22 Vital Signs Temp Pulse Resp BP Pulse Ox 98.6 F 89 16 133/77 98 02/03/22 08:00 02/03/22 08:00 02/03/22 08:00 02/03/22 08:40 02/03/22 08:00 Microbiology Results 01/08/22 17:50 Blood - Blood Aerobic Blood Culture - Final Enterococcus Faecalis 01/08/22 17:50 Blood - Blood Blood Culture Gram Stain - Final 01/08/22 17:50 Blood - Blood Anaerobic Blood Culture - Final Enterococcus Faecalis 01/08/22 17:50 Blood - Blood Gram Stain - Final 01/08/22 18:00 Blood - Blood Aerobic Blood Culture - Final Enterococcus Faecalis 01/08/22 18:00 Blood - Blood Blood Culture Gram Stain - Final 01/08/22 18:00 Blood - Blood Anaerobic Blood Culture - Final Enterococcus Faecalis 01/08/22 18:00 Blood - Blood Gram Stain - Final Assessment/ Plan: Nephrology No dyspnea No chest pain Appetite variable Waxing and waning mental status No acute events overnight Vitals, medications, blood work and imaging reviewed in the chart. NAD. NCAT. MMM. Neck supple. Normal respiratory effort. RRR. Abd ND. No C/C/E. No rash. Somnolent. No speech. ESRD -HD tomorrow HTN with CKD/ CHF -Continue Ramipril -Continue Nifedipine ER 30mg BID Diastolic CHF, chronic -Low sodium diet -Continue Coreg DM II with CKD -RISS Moderate malnutrition -Continue Nepro Anemia in CKD -Retacrit TIW CKD MBD -Continue Phoslo Toxic metabolic encephalopathy due to multiple brain infarcts Mitral vegetation/ Endocarditis/ Bacteremia -Continue abx for Enterococcus faecalis -PICC for adjunct faculty for medical terminology abx. Daughter states she will not pursue an AVF in the future due to her history of unsuccessful fistulas. -Plan for repeat MRI Case reviewed with Dr. Barrios EXAM DESCRIPTION: MRI - Brain Wo Cont - 01/14/2022 12:01 pm CLINICAL HISTORY: r/o stroke, left sided weakness COMPARISON: Head Brain Wo Cont dated 01/09/2022 TECHNIQUE: Sagittal T1-weighted images were obtained along with PD/heavily T2- weighted and T2-FLAIR images. Axial DWI and ADC mapping sequences were also obtained along with coronal heavily T2-weighted images were obtained. FINDINGS: Multiple bilateral infarcts identified, the largest in the body of the caudate on the right measuring 17 millimeters. There are multiple in the basal ganglia and alfredo radiata as well as some small cortical infarcts in the frontal lobes. Small infarct in the right lobe of the cerebellum. Advanced chronic small vessel ischemic changes. Cerebral atrophy. No mass effect or midline shift. Mastoid air cells and paranasal sinuses are clear. IMPRESSION: Bilateral small cortical, deep white matter, basal ganglia, and cerebellar infarcts involving multiple vascular distributions. This could be secondary to cardioembolic source. EXAM DESCRIPTION: MRI - Brain Wo Cont - 02/01/2022 3:40 pm CLINICAL HISTORY: r/o new infarcts Headache, drowsiness, CVA COMPARISON: MRA Head Wo Cont dated 01/20/2022; Brain Wo Cont dated 01/20/2022 TECHNIQUE: Multi-sequence, multiplanar MR imaging of the brain was performed without contrast. FINDINGS: A new small acute infarct is noted measuring 4 mm left posterior internal capsule. The additional areas of infarction seen in the midbrain, left frontal region and right posterior periventricular white matter are again noted and appears slightly more prominent. In particularly the infarct right posterior periventricular white matter currently measures 17 mm, previously 13 mm. Mild bilateral mastoid effusions. Small amount of fluid is seen right sphenoid sinus. IMPRESSION: Mild progression in the previously detected acute infarcts as described above with a small focus of new CVA seen posterior left internal capsule. Moderate confluent periventricular and deep white matter chronic microvascular ischemic changes.
--- NOTE | 2022-02-04 14:18 | PN ---
Subjective: The patient lying in bed. No new acute event. Chart reviewed. Waiting for dialysis ca theter to be placed. Objective: Vital Signs: Temperature 97, pulse is 76, respirations 14, blood pressure 155/77. Lungs: Basal crackles. Heart: S1, S2. Regular. Abdomen: Soft and nontender. Bowel sounds present. Extremities: Trace edema. Laboratory Data: Shows WBC 8.3, hemoglobin 9.1, platelets are 213. Chemistry shows sodium 143, pota ssium 4.3, chloride 110, bicarb 25, BUN 22, creatinine 8.3, glucose is 87. The patient currently on Rocephin and ampicillin. Assessment And Plan: End-stage renal disease and Enterococcus faecalis bacteremia. The patient is c urrently on ampicillin; dialysis catheter, possible source of infection, awaiting new dialysis cathet er placement; vaginal candidiasis; recent COVID-19 pneumonia; sacral stage II wound, improving; oral thrush, improving. Continue current treatment. No other recommendation at this time. NF/MODL Voice ID: [id number] Report ID: [id number]
== END 2022-02-03 11:33 | disposition hospice, inpatient (51) | DRG 280 ==
LOC: ER 13:48 → ERHOLD 20:10 → 4TH 01-09 00:01 → 2ND 01-30 17:05
PROVIDERS: ADMIT Hospitalist; ATTEND Hospitalist
PROC: 5A1D70Z Performance of Urinary Filtration, Intermittent, Less than 6 Hours Per Day (ICD-10-PCS; 2022-01-10)
PROC: 5A1D70Z Performance of Urinary Filtration, Intermittent, Less than 6 Hours Per Day (ICD-10-PCS; 2022-01-12)
PROC: 05PY33Z Removal of Infusion Device from Upper Vein, Percutaneous Approach (ICD-10-PCS; principal; 2022-01-13 12:45)
PROC: 06H033Z Insertion of Infusion Device into Inferior Vena Cava, Percutaneous Approach (ICD-10-PCS; 2022-01-19)
PROC: 5A1D70Z Performance of Urinary Filtration, Intermittent, Less than 6 Hours Per Day (ICD-10-PCS; 2022-01-19)
PROC: 5A1D70Z Performance of Urinary Filtration, Intermittent, Less than 6 Hours Per Day (ICD-10-PCS; 2022-01-22)
PROC: 5A1D70Z Performance of Urinary Filtration, Intermittent, Less than 6 Hours Per Day (ICD-10-PCS; 2022-01-25)
PROC: 5A1D70Z Performance of Urinary Filtration, Intermittent, Less than 6 Hours Per Day (ICD-10-PCS; 2022-01-27)
PROC: 02HV33Z Insertion of Infusion Device into Superior Vena Cava, Percutaneous Approach (ICD-10-PCS; 2022-01-28)
PROC: 5A1D70Z Performance of Urinary Filtration, Intermittent, Less than 6 Hours Per Day (ICD-10-PCS; 2022-01-29)
PROC: 5A1D70Z Performance of Urinary Filtration, Intermittent, Less than 6 Hours Per Day (ICD-10-PCS; 2022-02-02)
DX: T82.7XXA Infection and inflammatory reaction due to other cardiac and vascular devices, implants and grafts, initial encounter (principal); A41.81 Sepsis due to Enterococcus; I21.4 Non-ST elevation (NSTEMI) myocardial infarction; I33.9 Acute and subacute endocarditis, unspecified; N18.6 End stage renal disease; U07.1 COVID-19; J12.82 Pneumonia due to coronavirus disease 2019; J96.01 Acute respiratory failure with hypoxia; I63.439 Cerebral infarction due to embolism of unspecified posterior cerebral artery; G93.41 Metabolic encephalopathy; I63.9 Cerebral infarction, unspecified; I13.2 Hypertensive heart and chronic kidney disease with heart failure and with stage 5 chronic kidney disease, or end stage renal disease; I50.32 Chronic diastolic (congestive) heart failure; E44.0 Moderate protein-calorie malnutrition; B37.0 Candidal stomatitis; G81.94 Hemiplegia, unspecified affecting left nondominant side; I25.10 Atherosclerotic heart disease of native coronary artery without angina pectoris; Z68.21 Body mass index [BMI] 21.0-21.9, adult; E11.22 Type 2 diabetes mellitus with diabetic chronic kidney disease; R47.1 Dysarthria and anarthria; R13.10 Dysphagia, unspecified; B37.3 Candidiasis of vulva and vagina; D63.1 Anemia in chronic kidney disease; E11.649 Type 2 diabetes mellitus with hypoglycemia without coma; L89.152 Pressure ulcer of sacral region, stage 2; S70.922A Unspecified superficial injury of left thigh, initial encounter
CPT/HCPCS: 36415; 36569; 70450; 70544; 70551; 71045; 71250; 72125; 72170; 76000; 78452; 80048; 80053; 80061; 80069; 80076; 80202; 82140; 82550; 82607; 82652; 82728; 82747; 82805; 82947; 83540; 83605; 83690; 83735; 83880; 84100; 84134; 84439; 84443; 84466; 84484; 84550; 85025; 85027; 85610; 85652; 85730; 87040; 87070; 87077; 87186; 87205; 88300; 90935; 92526; 92610; 93005; 93017; 93306; 94760; 95851; 96365; 96366; 96375; 97110; 97112; 97162; 97164; 97165; 97530; 99285; A9500; C9113; J0290; J0360; J0696; J1200; J1644; J1720; J1940; J1953; J2250; J2704; J2785; J2997; J3010; J3370; J7040; J7050; J7606; Q5105; Q5106; U0003

== ENCOUNTER 2022-02-03 11:36 | Inpatient (IN) | payer OTHER ==
--- OUTSIDE RECORDS SUMMARY | 2022-02-03 11:50 | XMS REPORT | Continuity of Care Document ---
:1960 Author Organization [facility] t Address [address] [place] [address] Care Team Providers Name Role Phone Andreea Choudhury Primary Care Physician Darcy RIVAS.Bishnu Attending Clinician Unavailable Evelyn COOK, K.H. Attending Clinician MINGO Attending Clinician Unavailable Andreea Choudhury MD Attending Clinician Mingo COOK Attending Clinician SYSTEM, NOT IN Attending Clinician Unavailable Payers Payer Name Policy Type Policy Number Effective Date Expiration Date [facility] [id number] 2011 MEDICAID 00:00:00 MEDICAID MOLINA [id number] 2018 00:00:00 Problems Condition Condition Condition Status [...] of fistula fistula 00:00: g of this [place] stenosis, stenosis, 00 note [facility] subsequent subsequent might be Branch encounter encounter different from the original. Added automatic ally from request for surgery [id number] Obesity Obesity Disease Active Univers (BMI (BMI 9-05 ity of 30-39.9) 30-39.9) 00:00: [place] 00 Medical Branch ESRD (end ESRD (end Disease Active Overview: Univers stage stage 8-21 Formattin ity of renal renal 00:00: g of this [place] disease) disease) 00 note Medica l on on might be Branch dialysis dialysis different from the original. Added automatic ally from request for surgery [id number] Elevated Elevated Disease Active Unive rs serum serum 3-17 ity of lactate lactate 00:00: [place] dehydrogen dehydrogen 00 Me dical ase [facility] Branch Essential Essential Disease Active [...] on on 00:00: [place] exertion) exertion) 00 [facility] amy Branch Edema of Edema of Disease Active Unive rs both legs both legs 7-25 ity of 00:00: [place] 00 Medical Branch HTN HTN Disease Active Univers (hypertens (hypertens 7-18 it y of ion) ion) 00:00: [place] 00 [facility] Branch Bipolar 1 Bipolar 1 Disease Active Uni vers disorder disorder ity of [facility] Allergies, Adverse Reactions, Alerts Allergy Allergy Status [...] History SDOH University o f Alcohol Frequency [facility] edical Branch History SDOH University o f Alcohol Std Drinks [place] [facility] Branch History SDOH University o f Alcohol Binge [facility] al Branch Exposure to Not sure [place] of SARS-CoV-2 (event) [facility] Alcohol intake 2021-09-23 2021-09-23 Current drinker Unive rsity of 00:00:00 00:00:00 of alcohol [place] Medical (finding) Branch Alcohol Comment 2016-06-14 2016-06-14 beer during the Univ ersity of 00:00:00 00:00:00 week to sleep [facility] al Branch Cigarette 2015-01-14 2015-01-14 University of pack-years 00:00:00 00:00:00 [facility] Tobacco use and 2015-01-14 2015-01-14 Never used Universit y of exposure 00:00:00 00:00:00 [facility] Cigarettes smoked 2015-01-14 2015-01-14 Univers ity of current (pack per 00:00:00 00:00:00 [facility] ) - Reported Branch Sex Assigned At [address] [facility] - 00:00:00 00:00:00 [facility] Center Smoking Status Start Date Stop Date Source Current every day smoker 2015-01-14 00:00:00 Uni versity of [facility] Medications Ordered Filled Start Stop Current Ordering [...] by mouth ity o f 11:10: at [place] [address] bedtime. Medical Branch tiZANidine 2020-11 Yes 4mg Take 4 mg Un carolann 4 mg 0-27 by mouth 2 ity of capsule 11:10: (two) [place] [address] times Medical daily. Branch HYDRALAZINE Yes [id number] TAKE 1 Univers 50 mg 4-08 TABLET BY ity of tablet 00:00: MOUTH [place] 00 THREE Medical TIMES Branch DAILY CARVEDILOL 2019-11 Yes [id number] TAKE 1 U nivers 25 mg 1-01 TABLET BY ity of tablet 00:00: MOUTH [place] 00 TWICE Medical DAILY WITH Branch MEALS furosemide 2019-0 Yes [id number] 40mg Take 1 Univers 40 mg 9-23 tablet by ity of tablet 00:00: mouth [place] 00 every Medical morning Branch and evening. acetaminoph 2019-0 Yes [id number] 650mg Take 1 Univers en 650 mg 9-23 tablet by ity o f CR tablet 00:00: mouth [place] 00 every 8 Medical (eight) Branch hours as needed for Pain. Diclofenac 2019-0 Yes [id number] Apply to Univers Sodium 9-23 area(s) 3 ity of (VOLTAREN) 00:00: (three) [place] 1 % gel 00 times Medical daily. Branch Apply two grams to affected areas three times daily traMADoL 50 2019-0 Yes [id number] 50mg Take 1 Univ ers mg tablet 9-23 tablet by ity o f 00:00: mouth [place] 00 every 8 Medical (eight) Branch hours as needed for Pain (scale 4-6). Indication s: chronic pain, chronic right knee pain (cannot take NSAID due to CKD) albuterol 2019-0 Yes [id number] 2{puff} Inhale 2 Univers (VENTOLIN 9-09 Puffs ity of HFA) 90 00:00: every 6 [place] mcg/actuati 00 (six) Medical on inhaler hours as Branc h needed for Wheezing or Shortness of Breath. potassium 2019- Yes [id number] 10meq Take 1 Univers chloride 10 08-06 tablet by ity of mEq CR 00:00: mouth [place] tablet 00 every Medical Tuesday, Branch and Tuesday in the evening. methylPREDN 2020- No [id number] Take by Univers ISolone 08-06 mouth ity of (MEDROL, 00:00: 00:00 [place]STRU [place] NIRANJAN,) 4 mg 00 :00 CTIONS. Medica l tablets follow [place] package directions nicotine 14 2020- No [id number] 1{patch Apply 1 Univers mg/24 hr 08-06 } Patch to ity of patch 00:00: 00:00 area(s) [place] 00 :00 every 24 Medical (-fo Branch ur) hours. Apply 21mg patch daily x 6 weeks, then apply 14mg patch daily x 2 weeks, then apply 7 mg patch daily 2 weeks, stop smoking on initiation of therapy. nicotine 21 2020- No [id number] 1{patch Apply 1 Univers mg/24 hr 08-06 } Patch to ity of patch 00:00: 00:00 area(s) [place] 00 :00 every 24 Medical (- Branch ur) hours. Apply 21mg patch daily x 6 weeks, then apply 14mg patch daily x 2 weeks, then apply 7 mg patch daily 2 weeks, stop smoking on initiation of therapy. nicotine 7 2020- No [id number] 1{patch Apply 1 Univers mg/24 hr 08-06 } Patch to ity of patch 00:00: 00:00 area(s) [place] 00 :00 every 24 Medical (twenty-fo Branch ur) hours. Apply 21mg patch daily x 6 weeks, then apply 14mg patch daily x 2 weeks, then apply 7 mg patch daily 2 weeks, stop smoking on initiation of therapy. doxycycline 2020- No [id number] 100mg Take 1 Univers hyclate 100 08-06 tablet by it y of mg tablet 00:00: 00:00 mouth 2 [place] 00 :00 (two) Medical times Branch daily. CETIRIZINE 2019- Yes [id number] Take 1 Univers 10 mg 8-31 tablet by ity of tablet 00:00: mouth once [place] 00 daily Medical Branch AMLODIPINE Yes [id number] TAKE 1 U nivers 10 mg 9-17 TABLET BY ity of tablet 00:00: MOUTH ONCE [place] 00 DAILY Medical Branch furosemide 0 Yes 40mg Q.5D Take 40 [...] D3) 1,000 30 daily. Center unit tablet lancets 2020- No Once daily Uni vers [...] testing supplies she wants Blood-Gluco 2020- No [id number] Use as Univers se Meter 07-16 directed. [...] y of Vaccine Quad .5 mL 00:00:00 [facility] IM 6+ MO Branch Influenza Virus 2018-09-04 Completed Universit y of Vaccine Quad ID 00:00:00 [place] Med ical 18-64 YRS Branch Pneumococcal 2017-02-15 Completed University o f Polysaccharide, 00:00:00 [place] Med ical PPSV23 (PNEUMOVAX) Branch Vital Signs Vital Name Observation Time Observation Value Comments Source Systolic blood 2021-09-23 16:18:00 203 mm[Hg[facility] Diastolic blood 2021-09-23 16:18:00 107 mm[Hg] [facility] rate 2021-09-23 16:18:00 73 /min [facility] Respiratory rate 2021-09-23 16:14:00 22 /min [facility] weight 2021-09-23 16:14:00 70.943 kg [facility] BMI 2021-09-23 16:14:00 26.85 kg/m2 [facility] Oxygen saturation in 2021-09-23 16:14:00 96 /min [facility] Arterial blood by [facility] Pulse oximetry Branch Procedures This patient has no known procedures. Encounters Start End Encounter Admission Attending Care Care Encounter Source Date/Time Date/Time Type Type Clinicians Facility Department ID 2021-11-30 2021-11-30 Outpatient Elli RIVAS [facility] [id number] Univers 11:30:00 11:30:00 SENDIL [id number] ity [facility] 2021-11-30 2021-11-30 Outpatient R EVELYN [facility] [id number] Univers 11:30:00 11:30:00 SENDIL [facility] 2021-09-23 2021-09-23 [facility] [id number] Univers 11:01:20 11:32:01 Visit Sendil DarcyMichaelJose MartinMichael [facility]ON[id number] [id number] Livanandreea ngo PROFESSIO [phone] Id dical NAL 059 [facility] 2021-09-23 2021-09-23 Outpatient R EVELYN [facility] [id number] Univers 11:00:00 11:00:00 SENDIL [id number] [facility] 2021-09-23 2021-09-23 Outpatient R EVELYN [facility] [id number] Univers 11:00:00 11:00:00 SENDIL [facility] 2021-09-02 2021-09-02 Outpatient R EVELYN [facility] [id number] Univers 13:00:00 13:00:00 SENDIL [id number] [facility] 2021-09-02 2021-09-02 Outpatient R EVELYN [facility] [id number] Univers 13:00:00 13:00:00 SENDIL [facility] 2021-08-12 2021-08-12 Outpatient R EVELYN [facility] [id number] Univers 11:00:00 11:00:00 SENDIL [id number] [facility] 2021-08-12 2021-08-12 Outpatient R EVELYN [facility] [id number] Univers 11:00:00 11:00:00 SENDIL [facility] 2021-07-29 2021-07-29 Outpatient R EVELYN [facility] [id number] Univers 11:00:00 11:00:00 SENDIL [id number] [facility] 2021-07-29 2021-07-29 Outpatient R EVELYN [facility] [id number] Univers 11:00:00 11:00:00 SENDIL [facility] 2020-11-19 2020-11-19 Outpatient R MINGO [facility] [id number] Univers 10:40:00 10:40:00 [place] [id number] [facility] 2020-11-19 2020-11-19 Outpatient R MINGO [facility] [id number] Univers 10:40:00 10:40:00 [place] [facility] 2020-09-23 2020-09-23 [facility] [id number] 00:00:00 00:00:00 Bianca Tony [id number] [place] [id number] Professio [id number] nal 231 [facility] 2020-08-20 2020-08-20 Office [facility] [id number] 13:42:32 15:04:00 [place] [id number] [place] [id number] Professio [id number] nal [id number] [facility] 2020-08-20 2020-08-20 Outpatient R MINGO, [facility] [id number] Univers 13:40:00 13:40:00 [place] [id number] [facility] 2020-08-20 2020-08-20 Outpatient R MINGO [facility] [id number] Univers 13:40:00 13:40:00 [place] [facility] 2020-08-06 2020-08-06 Outpatient R MINGO [facility] [id number] Univers 13:40:00 13:40:00 [place] [facility] 2020-08-06 2020-08-06 Outpatient R MINGO [facility] [id number] Univers 13:00:00 13:00:00 [facility] 2020-08-01 Outpatient R MINGO [facility] [id number] Univers 09:00:00 09:00:00 [place] [facility] 2020-07-24 2020-07-24 Outpatient R RIVAS, [facility] [id number] Univers 11:00:00 11:00:00 YOKO [facility] 2019-02-08 2019-02-08 Outpatient EL SYSTEM, [facility] [id number] [facility] 00:00:00 00:00:00 PROVIDER Results Test Description Test Time Test Comments Results Result Comments Source SARS-COV2/RT-PCR ([facility]) 2020-06-12 13:15:00 Test Item Value Reference Range Interpretation Comme nts SARS-COV2/RT-PCR (test code = 0648252) Negative Not Detected, N egative SARS-COV-2 PERFORMING LAB (test code = [id number]) [facility] Negative result for this [...] 564(g) of the Act.Fact Sheet for Healthcare Providers:https://www.[employer]/sites/default/files/product/documents/Fact_Shee k_KV_Opdxsdnrw_Bedv_ULMZ-SvP-4.pdfFact Sheet for Healthcare Patients:https://www.[employer]/sites/default/files/product/ documents/Gwxv_Ejkzc_Mmglojjb_Qnkw_INDN-PfZ-7.pdfPerforming Laboratory:[facility], [place] [address]NSF, CV ACCESS, [id number] 17:37:00FINAL REPORT History: Renal failure, need for [...] [place] Verified Date/Time: 02/07/2019 17:37:01 Reading Location: [place] [address] Angio Body Reading Room
[2022-02-03] MEDS ORDERED: MORPHINE 2 MG/ML SYR IV PRN (12:01)
[2022-02-03] MEDS ORDERED: ONDANSETRON 4 MG/2 ML VIAL IV PRN (12:02)
[2022-02-03] MEDS ORDERED: LORazepam 2 MG/ML VIAL IV PRN (12:02)
[2022-02-03] MEDS ORDERED: POLYVINYL ALCOHOL 1.4% 15 ML OPTH PRN (12:03)
[2022-02-03] MEDS ORDERED: ACETAMINOPHEN 650MG/RECT SUPP PR PRN (12:04)
[2022-02-03] MEDS ORDERED: BISACODYL 10 MG RECTAL SUPP PR PRN (12:04)
[2022-02-03] MEDS: SCOPOLAMINE HYDROBROMIDE PATCH TD SCH (13:34)
[2022-02-03] MEDS: LORazepam 2 MG/ML VIAL IV SCH ×3 (13:36→20:23)
[2022-02-03] MEDS: MORPHINE 2 MG/ML SYR IV SCH ×3 (13:37→20:23)
[2022-02-03] MEDS ORDERED: D10W 250 ML IV SCH (22:00)
[2022-02-04] MEDS: LORazepam 2 MG/ML VIAL IV SCH ×6 (01:37→20:48)
[2022-02-04] MEDS: MORPHINE 2 MG/ML SYR IV SCH ×6 (01:37→20:48)
[2022-02-04 12:46] VITALS: BMI 20.5
[2022-02-05] MEDS: LORazepam 2 MG/ML VIAL IV SCH ×6 (00:30→21:06)
[2022-02-05] MEDS: MORPHINE 2 MG/ML SYR IV SCH ×6 (00:30→21:06)
[2022-02-05 21:28] VITALS: O2SAT 100
[2022-02-06] MEDS: MORPHINE 2 MG/ML SYR IV SCH ×6 (00:45→20:06)
[2022-02-06] MEDS: LORazepam 2 MG/ML VIAL IV SCH ×6 (00:45→20:06)
[2022-02-06] MEDS: SCOPOLAMINE HYDROBROMIDE PATCH TD SCH (08:42)
[2022-02-06 22:09] VITALS: BP 41/31; TEMP 97.3
== END 2022-02-06 23:00 | disposition expired | DRG 951 ==
LOC: 2ND 11:36
PROVIDERS: ADMIT Internal Medicine Hematology & Oncology; ATTEND Internal Medicine Hematology & Oncology
DX: Z51.5 Encounter for palliative care (principal); A41.9 Sepsis, unspecified organism
CPT/HCPCS: 82947; J2270